=== PATIENT | male | born 1995 | race Caucasian/White ===

== ENCOUNTER → 2019-02-13 11:07 | Outpatient (BNVA) | payer MEDICAID, SELFPAY | PROVIDERS: Family Provider Internal Medicine; PCP Internal Medicine; Visit Provider Nurse Practitioner | DX: F34.81 Disruptive mood dysregulation disorder | CPT/HCPCS: 99213 ==

== ENCOUNTER 2019-04-05 17:05 | Emergency (ER) | payer MEDICAID, SELFPAY ==
[2019-04-05 17:06] VITALS: BP 135/76; PULSE 88; RESP 18; TEMP 37.1; O2SAT 96
[2019-04-05 18:37] VITALS: BP 118/73; PULSE 80; RESP 18; TEMP 36.9; O2SAT 97
--- NOTE | 2019-04-05 18:44 | PC.NURSE ---
Pt states he noticed the sleepy feeling when new meds Rx for acid reflux and heartburn
--- NOTE | 2019-04-05 19:55 | ED_ITS ---
Documented by User: CUCA Reddy 04/06/19 12:52 HPI - Fever General: Chief Complaint: Fever Stated Complaint: flu s/s Time Seen by Provider: 04/05/19 19:12 History of Present Illness: HPI Narrative: Patient is a 24-year-old male comes into the ED with early evening drowsiness. Patient states for the past week he starts getting real sleepy around the late afternoon early evening time. He then drinks some coffee to help him stay awake. Pt says he gets good sleep at night and is unsure if he snores. pt did say he started taking a medication for acid reflux with in the last 2 weeks but denies any other med changes. Pt does h ave a scheduled appointment with PCP next week. Associated symptoms: Deny abdominal pain, back/flank pain, chills, chest pain, diarrhea, dysuria, headache(s), nasal congestion, nausea or vomiting Review of Systems Const: Reports: daytime sleepiness; Denies: fever, chills or fatigue Eyes: Denies: change in vision or eye discomfort ENMT: Denies: throat pain, painful swallowing, nasal discharge or nasal congestion Card: Denies: chest pain, palpitations, edema, swelling of feet/ankles, shortness of breath on exertion or shortness of breath when lying down Resp: Denies: shortness of breath, productive cough or non-productive cough GI: Denies: abdominal pain, nausea, vomiting, diarrhea, constipation or blood in stool : Denies: flank pain, difficulty urinating, painful urination or blood in urine Musc: Denies: neck pain, back pain or extremity swelling Skin/Breast: Denies: rash or new lesion Neuro: Denies: headache, numbness in extremities or weakness in extremities PFSH ED PFSH: Medical History Autistic disorder Disruptive mood dysregulation disorder Social History Smoking and tobacco status: never smoked Physical Exam Narrative: EXAM NARRATIVE: Pt is a 24 y/o male that is in no acute distress or pain. he is sitting comfortably in the chair when I entered the room. Pt does appear to be overweight. Const: COMMON NORMALS: oriented x3 HENMT: COMMON NORMALS: normocephalic HEAD & SCALP: normocephalic MOUTH: oral and palatal mucosa normal THROAT: posterior oropharynx normal and uvula midline Neck/C-Spine: COMMON NORMALS: supple GENERAL: Yes normal visual inspection Lymph: LYMPHATIC: no lymphadenopathy noted (no cervical lymphadenopathy) Resp: COMMON NORMALS: normal respiratory effort, no retractions, no use of accessory muscles and clear to auscultation bilaterally AUSCULTATION: clear to auscultation bilaterally Cardio: COMMON NORMALS: regular rate, regular rhythm, S1 normal heart sound, S2 normal heart sound, no gallops, no clicks, no murmurs and peripheral pulses 2+ throughout RATE: regular rate RHYTHM: regular rhythm HEART SOUNDS: S1 normal and S2 normal PERIPHERAL PULSES: pulses 2+ throughout GI: COMMON NORMALS: normal to inspection, nondistended, normoactive bowel sounds, soft to palpation, non-tender and no masses INSPECTION: Yes central obesity PALPATION: Yes soft : COMMON NORMALS: Yes no CVA tenderness BLADDER/KIDNEY EXAM: Yes no CVA tenderness Back/Pelvis: COMMON NORMALS: no CVA tenderness Extremity: COMMON NORMALS: normal to inspection Neuro: COMMON NORMALS: oriented x3 and moves all extremities Skin: COMMON NORMALS: no rashes or lesions noted GENERAL SKIN EXAM: no rashes or lesions noted and dry skin Course Vital Signs: Vital signs: Vital Signs Temperature 98.4 F 04/05/19 18:37 Pulse Rate 80 04/05/19 18:37 Respiratory Rate 18 04/05/19 18:37 Blood Pressure 118/73 04/05/19 18:37 Pulse Oximetry 97 04/05/19 18:37 MDM - Fever Lab Data: Attestation: I reviewed the patient's lab results. Labs: Lab Results 04/05/19 04/05/19 04/05/19 Range/Units 19:59 20:09 20:09 WBC 8.1 (4.0-10.0) 10^3/ uL RBC 4.70 (4.1-5.3) 10^6/u L Hgb 14.4 (11.7-16.6) g/dL Hct 42.5 (42.0-52.0) % MCV 90.4 (80-94) fL MCH 30.6 (28.0-34.0) pg MCHC 33.9 (30.0-36.0) g/dL RDW 11.7 L (12.1-15.1) % Plt Count 168 (130-400) 10^3/c mm MPV 10.1 (7.4-10.4) fL Neut % (Auto) 65.2 % Lymph % (Auto) 24.8 % [place] % (Auto) 7.5 % Eos % (Auto) 1.6 % Baso % (Auto) 0.7 % Neut # (Auto) 5.3 (1.8-7.7) 10^3/u L Lymph # (Auto) 2.0 (0.8-4.8) 10^3/u L [place] # (Auto) 0.6 (0.2-0.9) 10^3/u L Eos # (Auto) 0.1 (0.0-0.8) 10^3/u L Baso # (Auto) 0.1 (0.0-0.1) 10^3/u L Nucleated RBC % (a uto) 0 % Nucleated RBCs # 0.0 /100WBC Sodium 137 (136-145) mmol/L Potassium 3.8 (3.5-5.1) mmol/L Chloride 103 (98-107) mmol/L Carbon Dioxide 24 (22-29) mmol/L Anion Gap 13.8 (5-19) BUN 15 (6-20) mg/dL Creatinine 0.8 (0.7-1.2) mg/dL GFR Calculation 117.8 (90-130) mL/min Glucose 104 (65-115) mg/dL Calcium 10.0 (8.5-10.5) mg/dL Total Bilirubin 0.3 (0.15-1.2) mg/dL AST 30 (0-40) U/L ALT 76 H (0-41) U/L Alkaline Phosphata se 75 (40-130) IU/L Total Protein 7.9 (6.6-8.7) g/dL Albumin 4.2 (3.5-5.2) g/dL Globulin 3.7 (1.3-4.6) g/dL Influenza Type A A g Negative (Negative) POC Influenza B Ag Negative (Negative) Discharge Plan Discharge Patient Disposition: Home, Self-Care Clinical Impression: Has daytime drowsiness Condition: Stable Prescriptions: No Action prenat.vits,carson,[id number] Tablet 1 tab PO ONCE RF: 0 medroxyprogesterone 150 mg/mL suspension 150 mg IM ONCE RF: 0 trazodone 50 mg tablet 50 mg PO .AT BED PRNRF: 0 acetaminophen [Tylenol Extra Strength] 500 mg tablet 500 mg PO Q6H PRNRF: 0 ibuprofen [Motrin IB] 200 mg capsule 600 mg PO Q6H PRNRF: 0 cetirizine [24Hour Allergy] 10 mg tablet 10 mg PO ONCE PRNRF: 0 lithium carbonate 450 mg tablet extended release 900 mg PO .AT BED Qty: 60 RF: 2 benztropine 1 mg tablet 2 mg PO .AT BED Qty: 60 RF: 2 oxcarbazepine 600 mg tablet 1,200 mg PO .AT BED Qty: 60 RF: 2 ziprasidone HCl 80 mg capsule 80 mg PO .AT BED Qty: 60 RF: 2 Discharge Orders: Discharge Order (Routine); Ordered 04/05/19 Ordered By: Harlan Davidson Referrals: Kenneth Bravo DO [Primary Care Provider] - Discharge Diet: Regular Discharge Activity: Resume usual activity Patient Instructions: Sleep Activity Restrictions/Additional Instructions: Follow-up with your PCP in the next 5-10 days for reevaluation. Discussed with your PCP feelings of drowsiness later in the day. Continue taking only her home medications as prescribed. Practice good sleep hygiene such as going to bed at the same time Every night. Discharge Date/Time: 04/05/19 21:23 Coding Level of Care Code ED Research Executive for Chg Fwd Exam Comprehensive Documented by User: Carolyn Bowie 04/06/19 19:59 HPI - Fever General: Chief Complaint: Fever Stated Complaint: flu s/s Time Seen by Provider: 04/05/19 19:12 PFSH ED PFSH: Medical History Autistic disorder Disruptive mood dysregulation disorder Social History Smoking and tobacco status: never smoked Course Vital Signs: Vital signs: Vital Signs Temperature 98.4 F 04/05/19 18:37 Pulse Rate 80 04/05/19 18:37 Respiratory Rate 18 04/05/19 18:37 Blood Pressure 118/73 04/05/19 18:37 Pulse Oximetry 97 04/05/19 18:37 MDM - Fever MDM Narrative: Medical decision making narrative: This patient was not seen by me nor evaluated by me nor discussed with me by the midlevel provider. I was available in the ER if needed throughout their stay but was not involved or contacted about their care. I am signing this chart per hospital policy ? Dr. Bowie. Lab Data: Labs: Lab Results 04/05/19 04/05/19 04/05/19 Range/Units 19:59 20:09 20:09 WBC 8.1 (4.0-10.0) 10^3/ uL RBC 4.70 (4.1-5.3) 10^6/u L Hgb 14.4 (11.7-16.6) g/dL Hct 42.5 (42.0-52.0) % MCV 90.4 (80-94) fL MCH 30.6 (28.0-34.0) pg MCHC 33.9 (30.0-36.0) g/dL RDW 11.7 L (12.1-15.1) % Plt Count 168 (130-400) 10^3/c mm MPV 10.1 (7.4-10.4) fL Neut % (Auto) 65.2 % Lymph % (Auto) 24.8 % [place] % (Auto) 7.5 % Eos % (Auto) 1.6 % Baso % (Auto) 0.7 % Neut # (Auto) 5.3 (1.8-7.7) 10^3/u L Lymph # (Auto) 2.0 (0.8-4.8) 10^3/u L [place] # (Auto) 0.6 (0.2-0.9) 10^3/u L Eos # (Auto) 0.1 (0.0-0.8) 10^3/u L Baso # (Auto) 0.1 (0.0-0.1) 10^3/u L Nucleated RBC % (a uto) 0 % Nucleated RBCs # 0.0 /100WBC Sodium 137 (136-145) mmol/L Potassium 3.8 (3.5-5.1) mmol/L Chloride 103 (98-107) mmol/L Carbon Dioxide 24 (22-29) mmol/L Anion Gap 13.8 (5-19) BUN 15 (6-20) mg/dL Creatinine 0.8 (0.7-1.2) mg/dL GFR Calculation 117.8 (90-130) mL/min Glucose 104 (65-115) mg/dL Calcium 10.0 (8.5-10.5) mg/dL Total Bilirubin 0.3 (0.15-1.2) mg/dL AST 30 (0-40) U/L ALT 76 H (0-41) U/L Alkaline Phosphata se 75 (40-130) IU/L Total Protein 7.9 (6.6-8.7) g/dL Albumin 4.2 (3.5-5.2) g/dL Globulin 3.7 (1.3-4.6) g/dL Influenza Type A A g Negative (Negative) POC Influenza B Ag Negative (Negative) Discharge Plan Discharge Patient Disposition: Home, Self-Care Clinical Impression: Has daytime drowsiness Condition: Stable Prescriptions: No Action prenat.vits,carson,[id number] Tablet 1 tab PO ONCE RF: 0 medroxyprogesterone 150 mg/mL suspension 150 mg IM ONCE RF: 0 trazodone 50 mg tablet 50 mg PO .AT BED PRNRF: 0 acetaminophen [Tylenol Extra Strength] 500 mg tablet 500 mg PO Q6H PRNRF: 0 ibuprofen [Motrin IB] 200 mg capsule 600 mg PO Q6H PRNRF: 0 cetirizine [24Hour Allergy] 10 mg tablet 10 mg PO ONCE PRNRF: 0 lithium carbonate 450 mg tablet extended release 900 mg PO .AT BED Qty: 60 RF: 2 benztropine 1 mg tablet 2 mg PO .AT BED Qty: 60 RF: 2 oxcarbazepine 600 mg tablet 1,200 mg PO .AT BED Qty: 60 RF: 2 ziprasidone HCl 80 mg capsule 80 mg PO .AT BED Qty: 60 RF: 2 Discharge Orders: Discharge Order (Routine); Ordered 04/05/19 Ordered By: Harlan Davidson Referrals: Kenneth Bravo DO [Primary Care Provider] - Discharge Diet: Regular Discharge Activity: Resume usual activity Patient Instructions: Sleep Activity Restrictions/Additional Instructions: Follow-up with your PCP in the next 5-10 days for reevaluation. Discussed with your PCP feelings of drowsiness later in the day. Continue taking only her home medications as prescribed. Practice good sleep hygiene such as going to bed at the same time Every night. Discharge Date/Time: 04/05/19 21:23 Coding Level of Care Code ED Research Executive for Chg Fwd Exam Comprehensive
--- NOTE | 2019-04-05 19:56 | XR_ITS ---
WS: [id number] Portable AP upright chest, 04/05/2019 Clinical Data: cough and fever Comparison: Portable chest, 10/29/2017. Findings: No nodules, masses or effusions are seen. The heart is normal. The pulmonary vascularity is not increased. No pneumonia or pneumothorax is seen. XR/XR chest 1V portable [id number] Impression: Negative chest.
[2019-04-05 20:16] LABS: Basophils # 0.1 10^3/uL (0.0-0.1); Basophils % 0.7 %; Eosinophils # 0.1 10^3/uL (0.0-0.8); Eosinophils % 1.6 %; Hematocrit 42.5 % (42.0-52.0); Hemoglobin 14.4 g/dL (11.7-16.6); Lymphocytes % 24.8 %; Mean Corpuscular HGB Conc 33.9 g/dL (30.0-36.0); Mean Corpuscular Hemoglobin 30.6 pg (28.0-34.0); Mean Corpuscular Volume 90.4 fL (80-94); Mean Platelet Volume 10.1 fL (7.4-10.4); Monocytes # 0.6 10^3/uL (0.2-0.9); Monocytes % 7.5 %; Neutrophils # 5.3 10^3/uL (1.8-7.7); Neutrophils % 65.2 %; Nucleated Red Blood Cells % 0 %; Platelet Count 168 10^3/cmm (130-400); Red Cell Distribution Width 11.7 % (12.1-15.1); White Blood Count 8.1 10^3/uL (4.0-10.0)
[2019-04-05 20:34] LABS: Alanine Aminotransferase 76 U/L (0-41); Albumin Level 4.2 g/dL (3.5-5.2); Alkaline Phosphatase 75 IU/L (40-130); Anion Gap 13.8 (5-19); Aspartate Amino Transferase 30 U/L (0-40); Blood Urea Nitrogen 15 mg/dL (6-20); Carbon Dioxide 24 mmol/L (22-29); Chloride 103 mmol/L (98-107); Globulin 3.7 g/dL (1.3-4.6); Glomerular Filtration Rate 117.8 mL/min (90-130); Glucose 104 mg/dL (65-115); Potassium 3.8 mmol/L (3.5-5.1); Sodium 137 mmol/L (136-145); Total Bilirubin 0.3 mg/dL (0.15-1.2); Total Protein 7.9 g/dL (6.6-8.7)
[2019-04-05 20:43] LABS: Influenza A by IFA Negative (Negative); Influenza B by IFA Negative (Negative)
== END 2019-04-05 21:23 | disposition home or self-care (01) ==
PROVIDERS: Emergency Provider Physician Assistant; Family Provider Internal Medicine; PCP Internal Medicine
DX: R40.0 Somnolence (principal)
CPT/HCPCS: 36415; 71045; 80053; 85025; 87804; 99281; 99283

== ENCOUNTER → 2019-05-05 08:15 | Outpatient (BNVA) | payer MEDICAID, SELFPAY | PROVIDERS: Family Provider Internal Medicine; PCP Internal Medicine; Visit Provider Nurse Practitioner | DX: F34.81 Disruptive mood dysregulation disorder (principal); F84.0 Autistic disorder | CPT/HCPCS: 99213 ==

== ENCOUNTER → 2019-06-07 07:48 | Outpatient (BNVA) | payer MEDICAID, SELFPAY | PROVIDERS: Family Provider Internal Medicine; PCP Internal Medicine; Visit Provider Nurse Practitioner | DX: F34.81 Disruptive mood dysregulation disorder (principal); F84.0 Autistic disorder | CPT/HCPCS: 99214 ==

== ENCOUNTER → 2019-06-30 07:40 | Outpatient (BNVA) | payer MEDICAID, SELFPAY | PROVIDERS: Family Provider Internal Medicine; PCP Internal Medicine; Visit Provider Nurse Practitioner | DX: F34.81 Disruptive mood dysregulation disorder (principal); F84.0 Autistic disorder | CPT/HCPCS: 99214 ==

== ENCOUNTER 2019-07-01 17:57 | Emergency (ER) | payer MEDICAID, SELFPAY ==
[2019-07-01 18:27] VITALS: BP 132/81; PULSE 93; RESP 18; TEMP 36.7; O2SAT 97; BMI 23.8
== END 2019-07-02 01:16 | disposition left against medical advice (07) ==
LOC: ER 18:17
PROVIDERS: Emergency Provider Emergency Medicine; PCP Internal Medicine
DX: Z53.21 Procedure and treatment not carried out due to patient leaving prior to being seen by health care provider (principal)
CPT/HCPCS: 99281

== ENCOUNTER 2019-07-09 17:34 | Emergency (ER) | payer MEDICAID, SELFPAY | END 2019-07-09 20:40 | disposition admitted as inpatient to this hospital (09) | LOC: ER 07-20 01:31 | PROVIDERS: Emergency Provider Emergency Medicine; PCP Internal Medicine | DX: F32.9 Major depressive disorder, single episode, unspecified (principal); R45.4 Irritability and anger; F84.0 Autistic disorder | CPT/HCPCS: 12345; 36415; 80053; 80307; 85025; 99282; 99285 ==

== ENCOUNTER 2019-07-09 17:34 | Inpatient (IN) | payer MEDICAID, SELFPAY ==
[2019-07-09 17:35] VITALS: BMI 27.4
[2019-07-09 17:40] VITALS: BP 127/85; PULSE 84; RESP 16; TEMP 37.2; O2SAT 98
--- NOTE | 2019-07-09 17:42 | ED_ITS ---
HPI - Psych General: Chief Complaint: Psychiatric Symptoms Stated Complaint: DEPRESSION Time Seen by Provider: 07/09/19 17:34 Source: patient and EMS Mode of arrival: EMS Limitations: no limitations History of Present Illness: HPI Narrative: 24-year-old male who states he has had increased anger along with depressions. He states that he had his meds readjusted and he is worsened. He denies any suicidality or homicidality. He states that he does want to get admitted to get help he states his anger dhas increased and he feels he needs his meds readjusted. complaint: suicidal ideation Associated symptoms: Reports depression Review of Systems Const: Denies: fever(s), chills, body aches or change in appetite Eyes: Denies: blurry vision or eye discomfort ENMT: Denies: throat pain or dental pain Card: Denies: chest pain Resp: Denies: dyspnea GI: Denies: abdominal pain, nausea, vomiting or diarrhea : Denies: dysuria Musc: Denies: neck pain or back pain Skin/Breast: Denies: rash Neuro: Denies: headache(s) Psych: Reports: depression [place]/Lymph: Denies: easy bruising All/Imm: Denies: urticaria PFSH ED PFSH: Medical History Autistic disorder Disruptive mood dysregulation disorder Social History Smoking and tobacco status: never smoked Physical Exam Const: COMMON NORMALS: no acute distress, patient oriented x3 and healthy appearing HENMT: COMMON NORMALS: normocephalic and atraumatic HEAD & SCALP: normocephalic and atraumatic Eye: COMMON NORMALS: Equal, round and reactive pupils present and EOMs intact bilaterally PUPIL: Yes Equal, round and reactive pupils present Neck/C-Spine: COMMON NORMALS: full ROM and supple Chest: COMMONS NORMALS: normal inspection of the chest and normal palpation of entire chest wall Resp: COMMON NORMALS: normal respiratory effort, No retractions, No use of accessory muscles and clear to auscultation bilaterally AUSCULTATION: clear to auscultation bilaterally Cardio: COMMON NORMALS: regular rate, regular rhythm and No murmurs present (Cardio) RATE: regular rate RHYTHM: regular rhythm GI: COMMON NORMALS: Normal to inspection, nondistended, normoactive bowel sounds present, Soft to palpation, non-tender and no masses PALPATION: Yes Soft to palpation Extremity: COMMON NORMALS: normal to inspection and full ROM Neuro: COMMON NORMALS: patient oriented x3, moves all extremities and no focal motor deficits Psych: COMMON NORMALS: mental status grossly normal, Normal thought process present and cooperative MOOD & AFFECT: Yes depressed mood THOUGHT PROCESS: Normal thought process present Skin: COMMON NORMALS: no rashes or lesions noted and no wounds GENERAL SKIN EXAM: no rashes or lesions noted MDM - Psych MDM Narrative: Medical decision making narrative: Patient presents here with increased anger along with depression. Patient states that he does not feel safe at home at this time and would like to be admitted to have his meds readjusted. Patient's medically cleared and I spoke to Dr. Howell and will admit to psychiatric unit. Lab Data: Labs: Lab Results 07/09/19 07/09/19 Range/Units 18:50 18:50 WBC 7.0 (4.0-10.0) 10^3/ uL RBC 4.86 (4.1-5.3) 10^6/u L Hgb 14.6 (11.7-16.6) g/dL Hct 42.5 (42.0-52.0) % MCV 87.4 (80-94) fL MCH 30.0 (28.0-34.0) pg MCHC 34.4 (30.0-36.0) g/dL RDW 11.6 L (12.1-15.1) % Plt Count 161 (130-400) 10^3/c mm MPV 10.5 H (7.4-10.4) fL Neut % (Auto) 58.3 % Lymph % (Auto) 31.7 % [place] % (Auto) 7.4 % Eos % (Auto) 1.6 % Baso % (Auto) 0.7 % Neut # (Auto) 4.1 (1.8-7.7) 10^3/u L Lymph # (Auto) 2.2 (0.8-4.8) 10^3/u L [place] # (Auto) 0.5 (0.2-0.9) 10^3/u L Eos # (Auto) 0.1 (0.0-0.8) 10^3/u L Baso # (Auto) 0.1 (0.0-0.1) 10^3/u L Nucleated RBC % (a uto) 0 % Nucleated RBCs # 0.0 /100WBC Sodium 140 (136-145) mmol/L Potassium 3.5 (3.5-5.1) mmol/L Chloride 105 (98-107) mmol/L Carbon Dioxide 24 (22-29) mmol/L Anion Gap 14.5 (5-19) BUN 16 (6-20) mg/dL Creatinine 0.8 (0.7-1.2) mg/dL GFR Calculation 117.8 (90-130) mL/min Glucose 126 H (65-115) mg/dL Calculated Osmolal ity 288 (285-295) mOsm/k g Calcium 9.9 (8.5-10.5) mg/dL Total Bilirubin 0.3 (0.15-1.2) mg/dL AST 24 (0-40) U/L ALT 57 H (0-41) U/L Alkaline Phosphata se 70 (40-130) IU/L Total Protein 7.3 (6.6-8.7) g/dL Albumin 4.1 (3.5-5.2) g/dL Globulin 3.2 (1.3-4.6) g/dL Salicylates < 0.3 L (3-10) mg/dL Acetaminophen < 5.0 L (10-30) ug/mL Ethyl Alcohol < 10 (0-10) mg/dL Discharge Plan Discharge Patient Disposition: Admitted As Inpatient Admit Provider: Ruben Howell Clinical Impression: Outbursts of anger, Depression Condition: Stable Referrals: Kenneth Bravo DO [Primary Care Provider] - Discharge Diet: Advance as tolerated Discharge Activity: Resume usual activity Patient Instructions: Depression (ED) Coding Level of Care Code ED Director Of Instruction for Alva Fwd Exam Comprehensive
--- NOTE | 2019-07-09 18:02 | PC.NURSE ---
Patient denies SI complaints.
[2019-07-09] MEDS: LORazepam 2 mg/mL INJ 1 mL IM (18:22)
--- NOTE | 2019-07-09 18:52 | PC.NURSE ---
Patient has continued to change his mind regarding admission numerous times. At this time patient is requesting transfer to outside facility for NPU placement. Patient continues to deny any SI at this time. Assisted living staff is at bedside with patient at this time. Will seek placement at outside facility.
[2019-07-09 18:57] LABS: Basophils # 0.1 10^3/uL (0.0-0.1); Basophils % 0.7 %; Eosinophils # 0.1 10^3/uL (0.0-0.8); Eosinophils % 1.6 %; Hematocrit 42.5 % (42.0-52.0); Hemoglobin 14.6 g/dL (11.7-16.6); Lymphocytes # 2.2 10^3/uL (0.8-4.8); Lymphocytes % 31.7 %; Mean Corpuscular HGB Conc 34.4 g/dL (30.0-36.0); Mean Corpuscular Volume 87.4 fL (80-94); Mean Platelet Volume 10.5 fL (7.4-10.4); Monocytes # 0.5 10^3/uL (0.2-0.9); Monocytes % 7.4 %; Neutrophils # 4.1 10^3/uL (1.8-7.7); Neutrophils % 58.3 %; Nucleated Red Blood Cells % 0 %; Platelet Count 161 10^3/cmm (130-400); Red Blood Count 4.86 10^6/uL (4.1-5.3); Red Cell Distribution Width 11.6 % (12.1-15.1)
--- NOTE | 2019-07-09 19:06 | PC.NURSE ---
report received from GABBI Jessica and care transferred to GABBI Coburn
[2019-07-09 19:11] LABS: Alanine Aminotransferase 57 U/L (0-41); Albumin Level 4.1 g/dL (3.5-5.2); Alkaline Phosphatase 70 IU/L (40-130); Anion Gap 14.5 (5-19); Aspartate Amino Transferase 24 U/L (0-40); Blood Urea Nitrogen 16 mg/dL (6-20); Calcium 9.9 mg/dL (8.5-10.5); Carbon Dioxide 24 mmol/L (22-29); Chloride 105 mmol/L (98-107); Globulin 3.2 g/dL (1.3-4.6); Glomerular Filtration Rate 117.8 mL/min (90-130); Glucose 126 mg/dL (65-115); Osmolality Calculated 288 mOsm/kg (285-295); Potassium 3.5 mmol/L (3.5-5.1); Sodium 140 mmol/L (136-145); Total Bilirubin 0.3 mg/dL (0.15-1.2); Total Protein 7.3 g/dL (6.6-8.7)
[2019-07-09 19:16] LABS: Acetaminophen < 5.0 ug/mL (10-30); Alcohol Level < 10 mg/dL (0-10); Salicylate < 0.3 mg/dL (3-10)
[2019-07-09 20:38] VITALS: BP 104/76; PULSE 92; RESP 14; O2SAT 97
[2019-07-09 20:46] VITALS: BP 1241/87; PULSE 91; RESP 24; TEMP 37.1; O2SAT 98
[2019-07-09 22:00] VITALS: RESP 18
[2019-07-09] MEDS: trazodone 50 mg Tablet PO (22:48)
[2019-07-09] MEDS: benztropine 1 mg Tablet 2 MG PO (22:48)
[2019-07-09] MEDS: ziprasidone hcl 40 mg Capsule 80 MG PO (22:48)
[2019-07-09] MEDS: OXcarbazepine 300 mg Tablet 600 MG PO (22:49)
[2019-07-10 06:00] VITALS: BP 117/67; PULSE 76; RESP 20; TEMP 37.1; O2SAT 97
[2019-07-10] MEDS: prenatal vitamin Capsule 1 CAP PO (09:36)
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
[2019-07-10] MEDS: ibuprofen 600 mg Tablet PO (12:51)
[2019-07-10 13:37] VITALS: BP 123/82; PULSE 103; RESP 18; TEMP 36.7; O2SAT 96
[2019-07-10] MEDS: benztropine 1 mg Tablet PO (17:22)
[2019-07-10] MEDS: OXcarbazepine 300 mg Tablet 600 MG PO (18:39)
[2019-07-10] MEDS: ziprasidone hcl 40 mg Capsule 80 MG PO (18:40)
[2019-07-10 21:52] VITALS: BP 110/69; PULSE 86; RESP 17; TEMP 37; O2SAT 94
--- NOTE | 2019-07-10 22:33 | PC.NURSE ---
PT OFFERED PRN SLEEP MED, PT REFUSED.
[2019-07-11 05:50] VITALS: BP 118/82; PULSE 86; RESP 15; TEMP 37.1; O2SAT 95
[2019-07-11] MEDS: benztropine 1 mg Tablet PO (08:00)
[2019-07-11] MEDS: buPROPion XL (24 HR) 150 mg Tablet PO (08:01)
[2019-07-11] MEDS: prenatal vitamin Capsule 1 CAP PO (08:01)
[2019-07-11] MEDS: cetirizine 10 mg Tablet PO (08:01)
[2019-07-11] MEDS: ziprasidone hcl 40 mg Capsule 80 MG PO (08:01)
[2019-07-11] MEDS: OXcarbazepine 300 mg Tablet 600 MG PO (08:01)
[2019-07-11 12:27] VITALS: BP 118/82; PULSE 86; RESP 15; TEMP 37.1; O2SAT 95
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
== END 2019-07-11 16:28 | disposition home or self-care (01) | DRG 885 ==
LOC: ER 19:24 → NP 20:08
PROVIDERS: Emergency Medicine; Admitting Provider Psychiatry & Neurology Psychiatry; PCP Internal Medicine; Visit Provider Psychiatry & Neurology Psychiatry
DX: F33.1 Major depressive disorder, recurrent, moderate (principal); F84.0 Autistic disorder; F34.81 Disruptive mood dysregulation disorder
CPT/HCPCS: 12345; 36415; 80053; 80307; 85025; 99282; 99285; J2060

== ENCOUNTER → 2019-07-21 07:38 | Outpatient (BNVA) | payer MEDICAID, SELFPAY | PROVIDERS: PCP Internal Medicine; Visit Provider Nurse Practitioner | DX: F84.0 Autistic disorder (principal); F33.1 Major depressive disorder, recurrent, moderate | CPT/HCPCS: 99214 ==

== ENCOUNTER 2019-07-29 10:00 | Emergency (ER) | payer MEDICAID, SELFPAY ==
[2019-07-29 10:09] VITALS: BP 111/73; PULSE 91; RESP 16; TEMP 37.1; O2SAT 97; BMI 23.9
[2019-07-29 10:16] VITALS: RESP 18
--- NOTE | 2019-07-29 10:48 | CTR_ITS ---
PROCEDURE INFORMATION: Exam: CT Head Without Contrast Exam date and time: 07/29/2019 10:52 AM Age: 24 years old Clinical indication: Pain; Headache; Additional info: Chronic headache TECHNIQUE: Imaging protocol: Computed tomography of the head without contrast. Radiation optimization: All CT scans at this facility use at least one of these dose optimization techniques: automated exposure control; mA and/or kV adjustment per patient size (includes targeted exams where dose is matched to clinical indication); or iterative reconstruction. COMPARISON: No relevant prior studies available. FINDINGS: Brain: Giant cisterna magna. Symmetric caliber of the cortical sulci. Normal walden-white matter differentiation. No acute cortical infarct or intracranial hemorrhage. Ventricles: Normal configuration of the ventricles. Bones/joints: No acute calvarial pathology. Sinuses: No sinus fluid. Mastoid air cells: No mastoid effusion. Soft tissues: Unremarkable soft tissues. CT/CT head wo con* [id number] IMPRESSION: No acute intracranial pathology. Radiation Dose CTDIVOL = (mGy): DLP = 892.76 (mGy-cm)
--- NOTE | 2019-07-29 11:00 | W.ED.HA ---
HPI - Headache General: Chief Complaint: Headache Stated Complaint: SOB Time Seen by Provider: 07/29/19 10:18 History of Present Illness: HPI Narrative: 24-year-old male comes in complaining of headaches. He states he had these off and on for last 3 months he relates symptoms onset of a panic attack he had a few months ago. States headaches make him dizzy with no really given vertiginous-like symptoms. They do keep him from doing what he wants to do is a history of autism. He lives in a residential [facility]. He denies any trauma. His caregivers with him also denies any trauma. He tried Tylenol and Motrin with no relief from these. He has not noticed anything that worsen or improves them. No recent upper respiratory illnesses no other complaints MD elicited complaint: headache Pertinent past history: other (Asperger's syndrome) Onset (ago): month(s) (3 to 4 months) Onset description: gradually Location: facial (Frontal) and retro-orbital Severity: mild Quality & Timing: throbbing Exacerbating factors: none Relieving factors: nothing Context: occurred with exertion/activity Associated symptoms: Reports other (Dizziness); Deny chest pain, fever(s), malaise, nausea, rash or vomiting Treatments prior to arrival: acetaminophen and ibuprofen Review of Systems Const: Denies: fever(s), chills, body aches, change in appetite, fatigue or malaise ENMT: Denies: throat pain, ear or mastoid pain, nasal discharge or nasal congestion Card: Denies: chest pain, edema, dyspnea on exertion or orthopnea Resp: Denies: dyspnea, productive cough or non-productive cough GI: Denies: abdominal pain, nausea, vomiting, hematemesis, coffee ground emesis, diarrhea, constipation, bloating, hematochezia or melena : Denies: flank pain, dysuria, urinary frequency or urinary urgency Skin/Breast: Denies: rash or pruritus PFSH ED PFSH: Medical History Autistic disorder Disruptive mood dysregulation disorder Major depressive disorder, recurrent, moderate Social History Smoking and tobacco status: never smoked Physical Exam Const: COMMON NORMALS: no acute distress GENERAL APPEARANCE: cooperative and comfortable ORIENTATION/CONSCIOUSNESS: Yes awake, Yes oriented to person, Yes oriented to place and Yes oriented to time HENMT: COMMON NORMALS: normocephalic, atraumatic, hearing grossly normal bilaterally, external ears normal, EAC's normal, TM's normal bilaterally, Normal nasal mucous membranes and turbinates present, moist oral mucous membranes and oropharynx normal HEAD & SCALP: normocephalic and atraumatic NOSE: Normal nasal mucous membranes and turbinates present EXTERNAL EAR: Yes external ears normal EXTERNAL AUDITORY CANAL: EAC's normal TYMPANIC MEMBRANE: TM's normal bilaterally Eye: COMMON NORMALS: Equal, round and reactive pupils present, EOMs intact bilaterally, conjunctivae normal and no scleral icterus CONJUNCTIVA: Yes conjunctivae normal PUPIL: Yes Equal, round and reactive pupils present Neck/C-Spine: COMMON NORMALS: full ROM, no lymphadenopathy, supple and no JVD Lymph: LYMPHATIC: no lymphadenopathy noted and no lymphedema noted Resp: COMMON NORMALS: normal respiratory effort, No retractions, No use of accessory muscles and clear to auscultation bilaterally AUSCULTATION: clear to auscultation bilaterally Cardio: COMMON NORMALS: no JVD, regular rate, regular rhythm and No murmurs present (Cardio) RATE: regular rate RHYTHM: regular rhythm GI: COMMON NORMALS: Soft to palpation and No hepatosplenomegaly present AUSCULTATION: Yes normoactive bowel sounds PALPATION: Yes Soft to palpation, No Tenderness to palpation present (GI), No Guarding due to palpation present (GI) and Yes No hepatosplenomegaly present Extremity: COMMON NORMALS: normal to inspection, capillary refill normal, no clubbing, cyanosis or edema, no calf tenderness and no pedal edema Neuro: SENSORIUM/ORIENTATION: Yes oriented to person, Yes oriented to place and Yes oriented to time Skin: COMMON NORMALS: no rashes or lesions noted GENERAL SKIN EXAM: no rashes or lesions noted Course Vital Signs: Vital signs: Vital Signs Temperature 98.7 F 07/29/19 10:09 Pulse Rate 101 H 07/29/19 12:08 Respiratory Rate 18 07/29/19 12:08 Blood Pressure 110/73 07/29/19 12:08 Pulse Oximetry 97 07/29/19 12:08 MDM - Headache MDM Narrative: Medical decision making narrative: Pressures have been history marked feels that were like a tension migraine. We will go ahead and start him on amitriptyline asked him to follow-up with his regular doctor in the next 7 to 10 days to evaluate whether or not they wish him to continue this. Lab Data: Labs: Lab Results 07/29/19 07/29/19 Range/Units 11:12 11:12 WBC 6.2 (4.0-10.0) 10^3/ uL RBC 5.01 (4.1-5.3) 10^6/u L Hgb 15.0 (11.7-16.6) g/dL Hct 44.4 (42.0-52.0) % MCV 88.6 (80-94) fL MCH 29.9 (28.0-34.0) pg MCHC 33.8 (30.0-36.0) g/dL RDW 11.6 L (12.1-15.1) % Plt Count 175 (130-400) 10^3/c mm MPV 10.5 H (7.4-10.4) fL Neut % (Auto) 61.6 % Lymph % (Auto) 26.8 % [place] % (Auto) 8.4 % Eos % (Auto) 2.1 % Baso % (Auto) 0.8 % Neut # (Auto) 3.8 (1.8-7.7) 10^3/u L Lymph # (Auto) 1.7 (0.8-4.8) 10^3/u L [place] # (Auto) 0.5 (0.2-0.9) 10^3/u L Eos # (Auto) 0.1 (0.0-0.8) 10^3/u L Baso # (Auto) 0.1 (0.0-0.1) 10^3/u L Nucleated RBC % (a uto) 0 % Nucleated RBCs # 0.0 /100WBC Sodium 138 (136-145) mmol/L Potassium 4.0 (3.5-5.1) mmol/L Chloride 102 (98-107) mmol/L Carbon Dioxide 24 (22-29) mmol/L Anion Gap 16.0 (5-19) BUN 11 (6-20) mg/dL Creatinine 0.8 (0.7-1.2) mg/dL GFR Calculation 117.8 (90-130) mL/min Glucose 96 (65-115) mg/dL Calculated Osmolal ity 282 L (285-295) mOsm/k g Calcium 9.9 (8.5-10.5) mg/dL Total Bilirubin 0.7 (0.15-1.2) mg/dL AST 31 (0-40) U/L ALT 60 H (0-41) U/L Alkaline Phosphata se 67 (40-130) IU/L Total Protein 7.7 (6.6-8.7) g/dL Albumin 4.3 (3.5-5.2) g/dL Globulin 3.4 (1.3-4.6) g/dL Discharge Plan Discharge Patient Disposition: Home, Self-Care Clinical Impression: Headache, Major depressive disorder, recurrent, moderate, Autistic disorder Condition: Stable Prescriptions: New amitriptyline 25 mg tablet 25 mg PO .qhs Qty: 14 RF: 0 No Action benztropine 1 mg tablet 2 mg PO .AT BED Qty: 60 RF: 2 hydroxyzine HCl 50 mg tablet 50 mg PO .HS PRN (Reason: sleep) Qty: 30 RF: 1 prenat.vits,carson,[id number] Tablet 1 tab PO DAILY RF: 0 medroxyprogesterone 150 mg/mL suspension 150 mg IM ONCE RF: 0 acetaminophen [Tylenol Extra Strength] 500 mg tablet 500 mg PO Q6H PRN (Reason: pain) RF: 0 ibuprofen [Motrin IB] 200 mg capsule 600 mg PO Q6H PRN (Reason: muscle pain) RF: 0 cetirizine [24Hour Allergy] 10 mg tablet 10 mg PO DAILY PRN (Reason: allergies) RF: 0 prazosin 1 mg capsule 1 mg PO DAILY PRN (Reason: nightmares) RF: 0 bupropion HCl 150 mg Tablet Extended Release 24 Hr 150 mg PO DAILY 30 Days Qty: 30 RF: 1 ziprasidone HCl 80 mg capsule 80 mg PO QAM Qty: 60 RF: 2 Discharge Orders: Discharge Order (Routine); Ordered 07/29/19 Ordered By: Gamal Parekh Referrals: Kenneth Bravo DO [Primary Care Provider] - Discharge Diet: Usual diet Discharge Activity: Resume usual activity Activity Restrictions/Additional Instructions: Follow-up with your primary care doctor within the next 7 to 10 days to evaluate for the headaches and the medicine that was started today Discharge Date/Time: 07/29/19 12:09 Coding Level of Care Code ED 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
[2019-07-29 11:19] LABS: Basophils # 0.1 10^3/uL (0.0-0.1); Basophils % 0.8 %; Eosinophils # 0.1 10^3/uL (0.0-0.8); Eosinophils % 2.1 %; Hematocrit 44.4 % (42.0-52.0); Lymphocytes # 1.7 10^3/uL (0.8-4.8); Lymphocytes % 26.8 %; Mean Corpuscular HGB Conc 33.8 g/dL (30.0-36.0); Mean Corpuscular Hemoglobin 29.9 pg (28.0-34.0); Mean Corpuscular Volume 88.6 fL (80-94); Mean Platelet Volume 10.5 fL (7.4-10.4); Monocytes # 0.5 10^3/uL (0.2-0.9); Monocytes % 8.4 %; Neutrophils # 3.8 10^3/uL (1.8-7.7); Neutrophils % 61.6 %; Nucleated Red Blood Cells % 0 %; Platelet Count 175 10^3/cmm (130-400); Red Blood Count 5.01 10^6/uL (4.1-5.3); Red Cell Distribution Width 11.6 % (12.1-15.1); White Blood Count 6.2 10^3/uL (4.0-10.0)
[2019-07-29 11:41] LABS: Alanine Aminotransferase 60 U/L (0-41); Albumin Level 4.3 g/dL (3.5-5.2); Alkaline Phosphatase 67 IU/L (40-130); Aspartate Amino Transferase 31 U/L (0-40); Blood Urea Nitrogen 11 mg/dL (6-20); Calcium 9.9 mg/dL (8.5-10.5); Carbon Dioxide 24 mmol/L (22-29); Chloride 102 mmol/L (98-107); Globulin 3.4 g/dL (1.3-4.6); Glomerular Filtration Rate 117.8 mL/min (90-130); Glucose 96 mg/dL (65-115); Osmolality Calculated 282 mOsm/kg (285-295); Sodium 138 mmol/L (136-145); Total Bilirubin 0.7 mg/dL (0.15-1.2); Total Protein 7.7 g/dL (6.6-8.7)
[2019-07-29 12:08] VITALS: BP 110/73; PULSE 101; RESP 18; O2SAT 97
== END 2019-07-29 12:09 | disposition home or self-care (01) ==
PROVIDERS: Emergency Provider Family Medicine; PCP Internal Medicine
DX: R51 Headache (principal); F33.9 Major depressive disorder, recurrent, unspecified; F84.0 Autistic disorder
CPT/HCPCS: 12345; 36415; 70450; 80053; 85025; 99281; 99283

== ENCOUNTER → 2019-09-05 07:41 | Outpatient (BNVA) | payer MEDICAID, SELFPAY | PROVIDERS: PCP Internal Medicine; Visit Provider Nurse Practitioner | DX: F33.1 Major depressive disorder, recurrent, moderate (principal); F84.0 Autistic disorder | CPT/HCPCS: 99214 ==

== ENCOUNTER → 2019-09-25 09:13 | Outpatient (BNVA) | payer MEDICAID, SELFPAY | PROVIDERS: PCP Internal Medicine; Visit Provider Podiatrist Foot & Ankle Surgery | DX: M96.0 Pseudarthrosis after fusion or arthrodesis; M21.611 Bunion of right foot | CPT/HCPCS: 73630 ==

== ENCOUNTER → 2019-10-11 08:26 | Outpatient (BNVA) | payer MEDICAID, SELFPAY | PROVIDERS: PCP Internal Medicine; Visit Provider Internal Medicine | DX: Z11.59 Encounter for screening for other viral diseases (principal) | CPT/HCPCS: 87635 ==

== ENCOUNTER → 2019-10-31 07:40 | Outpatient (BNVA) | payer MEDICAID, SELFPAY | PROVIDERS: PCP Internal Medicine; Visit Provider Nurse Practitioner | DX: F84.0 Autistic disorder (principal); F33.1 Major depressive disorder, recurrent, moderate | CPT/HCPCS: 99213 ==

== ENCOUNTER → 2019-11-13 10:27 | Outpatient (BNVA) | payer MEDICAID, SELFPAY | PROVIDERS: PCP Internal Medicine; Visit Provider Podiatrist Foot & Ankle Surgery | DX: R05 Cough (principal) | CPT/HCPCS: 87635 ==

== ENCOUNTER 2019-11-17 08:10 | Day surgery (SDC) | payer MEDICAID, SELFPAY ==
[2019-11-16 13:45] VITALS: BMI 26.9
--- NOTE | 2019-11-17 | SCC_ITS ---
Procedure Done: Deep Hardware Removal Right Foot 84272 25 seconds of fluoroscopic guidance, for a cumulative dose of 0.53 mGy, was provided to Dr. Finch by the radiology department. C-arm images of the RIGHT foot were saved for the patient's permanent record. [facility]
--- NOTE | 2019-11-17 | XR_ITS ---
WS: [id number] Right foot, AP and lateral views, 11/17/2019 Clinical Data: Deep hardware removal Comparison: Right foot, 09/25/2019. Findings: There is underpenetration. The hardware that was removed is difficult to identify. There is a medial plate extending from the distal first metatarsal to the first cuneiform. There are several screws att aching this plate. There is also a orthopedic screw which extends from the dorsum of the right first metatarsal obliquely ending in one of the tarsal bones. XR/XR foot RT 2V [id number] Impression: Slightly underpenetrated AP and lateral views of the medial right foot. A medial plate adjacent to the first cuneiform and and the first metatarsal and oblique screw probably extending from the base of the first metatarsal and one of the tarsal bones are seen.
[2019-11-17 08:30] VITALS: BP 142/77; PULSE 101; RESP 18; TEMP 36.3; O2SAT 94
[2019-11-17] MEDS: sodium chloride 0.9% 1,000 ML 30 ML IV (09:20)
--- NOTE | 2019-11-17 09:38 | ANES.PREANE2 ---
Pre-Anesthetic Assessment Pre-Anesthetic Assessment: Height/Weight: Height 2.18 m Weight 128.367 kg Temp Pulse Resp BP Pulse Ox 97.4 F L 101 H 18 142/77 94 11/17/19 08:30 11/17/19 08:30 11/17/19 08:30 11/17/19 08:30 11/17/19 08:30 Preop Diagnosis: Nonunion right foot. Painful retained hardware right foot. Bunion deformity right foot. Proposed Procedure: Operation Date: 11/17/19 09:35 Proposed Procedures p Deep Hardware Removal Right Foot 02969 M96.0(Right) - Carlitos Finch DPM s Buionectomy [place]us Right Foor 69480 M21.611(Right) - Carlitos Finch DPM Was Beta Isadora taken within 24 hours: N/A Last intake: Intake Last Liquid Date 11/16/19 Last Liquid Time 23:45 Last Solid Date 11/16/19 Last Solid Time 23:45 Social: Social History: No alcohol and No tobacco Exam: Pre-Anes Outpt Exam: alert, oriented x 3, clear to auscultation bilaterally and regular rate & rhythm Airway: Submandibular: WNL Cervical ROM: WNL MP: 1 Dentition: Chipped History/ROS: No significant complaints Pulmonary: Pulmonary: None reported CV/HEM: CV/HEM: None reported : : None reported Hepatic: Hepatic: None reported GI: GI: GERD Metabolic: Metabolic: None reported Musc/skel: Musc/skel: None reported Neuropsych: Neuropsych: Depression Comments: Autism and Behavioral Disorder Anesthetic Plan: ASA status: 3 PFSH Anesthesia PFSH: Medical History (Updated 11/16/19 @ 13:48 by Carlitos Finch DPM) Autistic disorder Disruptive mood dysregulation disorder Major depressive disorder, recurrent, moderate Social History Smoking and tobacco status: never smoked Data Anesthesia Cardiac Studies: No Data to Display
--- NOTE | 2019-11-17 09:45 | P.HPUD_ITS ---
Surgery/Procedure H&P Update DATE OF PROCEDURE: November 17, 2019 DATE H&P PERFORMED: 11/16/19 H&P UPDATE INFORMATION: I have reviewed H&P completed within last 30 days, I have examined patient prior to procedure, No changes to prior documentation and H&P is in [facility] EMR on date indicated PREOP DIAGNOSIS: Nonunion right foot. Painful retained hardware right foot. Bunion deformity right foot. PLANNED PROCEDURE: Operation Date: 11/17/19 09:35 Proposed Procedures p Deep Hardware Removal Right Foot 12122 M96.0(Right) - Carlitos Finch DPM s Buionectomy Lap[place]us Right Foor 89344 M21.611(Right) - Carlitos Finch DPM
--- NOTE | 2019-11-17 09:45 | PM.OP ---
Operative Report Date of procedure: November 17, 2019 Pre-op Diagnosis: Nonunion right foot. Painful retained hardware right foot. Bunion deformity right foot. Post-op diagnosis: same Post-op Findings: Loose hardware, nonunion site to right Lap[place]us bunionectomy, right bunion deformity. Procedure Done: Deep Hardware Removal Right Foot Buionectomy [place]us Right Foot 32553 Implants: [place] 28 4.0 x 55 mm headless screw. [place] 28 3.5 millimeter screws consisting of 46 mm, 18 mm, 26 mm, 22 mm, 20 mm and 20 mm, [place] 28 Lapidus graft spanning plate 5 hole right. 2-0 Vicryl, 4-0 Vicryl, 4-0 nylon. Specimens removed/disposition: Right medical [place]us plate and screws x6. Pathology: none sent Surgeon: Carlitos Finch D.P.M. Press Assistant And Feeder: Andreina Anesthesia: MAC Estimated blood loss: 5 mL Tourniquet time: 86 minutes IV fluids: None Urine output: None Complications: None Findings: Hardware loosening right foot. Nonunion right first tarsometatarsal joint. Bunion deformity to the right. Condition: stable Disposition: PACU Brief History: Mr. Colindres is a 24-year-old male with history of painful hardware, nonunion and right foot pain to the arthrodesis site of the right foot first tarsometatarsal joint. Requesting hardware removal and revision of bunionectomy. States that the original surgery was done in [facility] by Dr. Walls approximately 5 years ago and that he was noncompliant with nonweightbearing status immediately postoperatively, states that he stopped his foot the day of surgery, this likely contributed to hardware failure and contributed to nonunion. States that he has pain on a daily basis has utilize supportive shoes and orthotics without relief in symptoms. Has pain with weightbearing and activity. Discussed hardware removal and revisional arthrodesis of the right tarsometatarsal joint, first. Risks include pain, bleeding, numbness, infection, hardware failure, hardware lucency, delayed union, malunion, nonunion, failure to retrieve hardware, permanent numbness, neuritis, hyper sensitivity, chronic swelling, failure to alleviate pain, damage to adjacent soft tissue structures, need for further surgical intervention. Patient is agreeable wishes to proceed. States he is willing to be nonweightbearing for approximately 8 weeks postoperatively. No guarantees expressed, written or implied. Discussed risks versus benefits with the patient preoperatively, consent signed, identified patient's surgical site this was initialed by myself. Procedure: Under mild sedation the patient was brought to the operating room and placed on the operating table in supine position. A timeout was performed. Anesthesia was then administered by the anesthesia service. Local anesthesia injected by myself consisting of a right ankle block 30 cc of 0.5% Marcaine plain. Well-padded pneumatic tourniquet applied right ankle. Right lower extremity was scrubbed, prepped and draped utilizing normal aseptic technique. Right foot was then examined a weighted with an Esmarch bandage and the tourniquet was inflated to 250 mmHg. Attention was directed to the medial aspect of the right first metatarsal cuneiform joint where previous well-healed cicatrix was appreciated. Directly over the previous incision a 15 blade was utilized to perform a linear longitudinal incision through skin. Utilizing a new 15 blade and accommodation of sharp and blunt technique, dissection was carried down through subcutaneous tissue directly to pre-existing hardware at the medial aspect of the first metatarsal base and medial cuneiform.. Periosteal incision was made, hardware was exposed and removed medial plate was removed and passed per operative field along with a total of 6 screws these were right medical 2.7 millimeter screws. Mobility was appreciated at the first metatarsal base medial cuneiform consistent with nonunion appeared to be a combination of fibrous and osseous. Nonunion was resected utilizing osteotome, utilizing a sagittal saw osteotomy at the base of the right first metatarsal perpendicular to his access and taking more plantarly as well as on the opposing distal aspect of the medial cuneiform osteotomies were performed resecting all nonviable bone and soft tissue. This was passed from the operative field. Utilizing a K wire and curved osteotome to perform fish scaling to further prepare the arthrodesis site through subchondral plate. Arthrodesis site was compressed and the first metatarsal slightly plantarflexed and held in a rectus position followed by temporary fixation next a [place] 28 4 mm headless compression screw was inserted from dorsal lateral to proximal medial across the arthrodesis site followed by application of dorsal medial plate with a combination of locking and nonlocking screws as above. Temporary fixation was was removed. Intraoperative fluoroscopy confirmed placement of hardware to be excellent with reduction of deformity and resection of nonunion. Incision site was flushed with saline solution. Deep tissue and periosteum reapproximated utilizing 2-0 Vicryl. Subcutaneous tissue reapproximated utilizing 4-0 Vicryl and skin reapproximated utilizing 4-0 nylon. Incision site was cleansed and dressed with Adaptic, sterile 4 x 4's, Kerlix, Sander wrap and cam boot applied. Tourniquet was deflated and a prompt hyperemic response was noted to the distal digits of the right foot. Patient tolerated procedure well and was transferred to the PACU with vital signs stable and vascular status intact. Following a period of postoperative monitoring he will be discharged home is to remain strict nonweightbearing has accommodation of crutches and wheelchair. Was provided postoperative care instructions and my personal cell phone number on discharge paperwork.
[2019-11-17 12:02] VITALS: BP 153/73; PULSE 110; RESP 14; TEMP 36.2; O2SAT 97
--- NOTE | 2019-11-17 12:04 | SUR.PHASEI ---
1202 PATIENT TO PACU FROM OR. RR EVEN AND UNLABORED. BOOT IN PLACE TO RIGHT FOOT.
[2019-11-17 12:10] VITALS: BP 153/96; PULSE 102; RESP 18; O2SAT 96
[2019-11-17 12:15] VITALS: BP 123/86; PULSE 96; RESP 18; TEMP 36.1; O2SAT 95
--- NOTE | 2019-11-17 12:20 | SUR.PHASEI ---
1215 PATIENT TO OPS. TALKATIVE. BOOT IN PLACE TO RIGHT FOOT.
[2019-11-17 12:21] VITALS: BP 118/80; PULSE 96; RESP 18; TEMP 36.1; O2SAT 94
[2019-11-17 12:33] VITALS: BP 132/92; PULSE 85; RESP 18; O2SAT 97
== END 2019-11-17 13:01 | disposition home or self-care (01) ==
PROVIDERS: PCP Internal Medicine; Visit Provider Podiatrist Foot & Ankle Surgery
PROC: (CPT 20680; principal; 2019-11-17 09:35)
PROC: (CPT 28297; 2019-11-17 09:35)
DX: M21.611 Bunion of right foot (principal); M96.0 Pseudarthrosis after fusion or arthrodesis; T84.84XA Pain due to internal orthopedic prosthetic devices, implants and grafts, initial encounter; F84.0 Autistic disorder; F33.9 Major depressive disorder, recurrent, unspecified; K21.9 Gastro-esophageal reflux disease without esophagitis
CPT/HCPCS: 20680; 28297; 12345; 73620; 76000; 96365; C1713; J0131; J0690; J1885; J2250; J2704; J3010; J3490; J7030

== ENCOUNTER → 2019-11-30 15:10 | Outpatient (BNVA) | payer MEDICAID, SELFPAY | PROVIDERS: PCP Internal Medicine; Visit Provider Podiatrist Foot & Ankle Surgery | DX: Z98.890 Other specified postprocedural states (principal) | CPT/HCPCS: 73630 ==

== ENCOUNTER → 2019-12-20 11:13 | Outpatient (BNVA) | payer MEDICAID, SELFPAY | PROVIDERS: PCP Internal Medicine; Visit Provider Podiatrist Foot & Ankle Surgery | DX: T84.84XA Pain due to internal orthopedic prosthetic devices, implants and grafts, initial encounter (principal); M21.611 Bunion of right foot; L91.8 Other hypertrophic disorders of the skin; Z98.890 Other specified postprocedural states; M96.0 Pseudarthrosis after fusion or arthrodesis; X58.XXXA Exposure to other specified factors, initial encounter | CPT/HCPCS: 73630 ==

== ENCOUNTER → 2020-01-10 12:50 | Outpatient (BNVA) | payer MEDICAID, SELFPAY | PROVIDERS: PCP Internal Medicine; Visit Provider Podiatrist Foot & Ankle Surgery | DX: Z47.89 Encounter for other orthopedic aftercare (principal) | CPT/HCPCS: 73630 ==

== ENCOUNTER 2020-01-10 14:31 | Outpatient (CLI) | payer MEDICAID, SELFPAY | END 2020-01-10 14:32 | disposition home or self-care (01) | LOC: SPT 14:31 | PROVIDERS: PCP Internal Medicine; Visit Provider Podiatrist Foot & Ankle Surgery | DX: Z47.89 Encounter for other orthopedic aftercare (principal) | CPT/HCPCS: 97760; L4361 ==

== ENCOUNTER → 2020-01-17 07:31 | Outpatient (BNVA) | payer MEDICAID, SELFPAY | PROVIDERS: PCP Internal Medicine; Visit Provider Nurse Practitioner | DX: F33.1 Major depressive disorder, recurrent, moderate (principal); F84.0 Autistic disorder | CPT/HCPCS: 99213 ==

== ENCOUNTER → 2020-01-30 13:03 | Outpatient (BNVA) | payer MEDICAID, SELFPAY | PROVIDERS: PCP Internal Medicine; Visit Provider Podiatrist Foot & Ankle Surgery | DX: Z48.89 Encounter for other specified surgical aftercare (principal); L91.8 Other hypertrophic disorders of the skin | CPT/HCPCS: 73630 ==

== ENCOUNTER → 2020-03-04 12:59 | Outpatient (BNVA) | payer MEDICAID, SELFPAY | PROVIDERS: PCP Internal Medicine; Visit Provider Podiatrist Foot & Ankle Surgery | DX: Z48.89 Encounter for other specified surgical aftercare (principal); M25.571 Pain in right ankle and joints of right foot; Z96.698 Presence of other orthopedic joint implants | CPT/HCPCS: 73610; 73630 ==

== ENCOUNTER 2020-03-04 15:03 | Outpatient (CLI) | payer MEDICAID, SELFPAY | END 2020-03-04 15:04 | disposition home or self-care (01) | LOC: SPT 15:04 | PROVIDERS: PCP Internal Medicine; Visit Provider Podiatrist Foot & Ankle Surgery | DX: Z46.89 Encounter for fitting and adjustment of other specified devices (principal); S93.401D Sprain of unspecified ligament of right ankle, subsequent encounter; X58.XXXD Exposure to other specified factors, subsequent encounter | CPT/HCPCS: 97760; L1902 ==

== ENCOUNTER → 2020-04-10 07:33 | Outpatient (BNVA) | payer MEDICAID, SELFPAY | PROVIDERS: PCP Internal Medicine; Visit Provider Nurse Practitioner | DX: F84.0 Autistic disorder (principal); F33.1 Major depressive disorder, recurrent, moderate | CPT/HCPCS: 99214 ==

== ENCOUNTER → 2020-04-17 10:15 | Outpatient (BNVA) | payer MEDICAID, SELFPAY | PROVIDERS: PCP Internal Medicine; Visit Provider Podiatrist Foot & Ankle Surgery | DX: Z98.890 Other specified postprocedural states (principal); Q66.6 Other congenital valgus deformities of feet | CPT/HCPCS: 73630 ==

== ENCOUNTER 2020-06-01 16:50 | Emergency (ER) | payer MEDICAID, SELFPAY ==
[2020-06-01 17:13] VITALS: BP 141/86; PULSE 86; RESP 18; TEMP 36.5; O2SAT 97; BMI 26.5
--- NOTE | 2020-06-01 18:02 | ED_ITS ---
HPI - Psych General: Chief Complaint: Psychiatric Symptoms Stated Complaint: depression Time Seen by Provider: 06/01/20 18:02 Source: patient Mode of arrival: ambulatory Limitations: no limitations History of Present Illness: HPI Narrative: 25-year-old male patient comes in today for concerns of medication making him feel depressed. Patient states he understands medication helps with his anger outburst, the patient likes to feel happy at times. Patient feels that he does not feel happiness and often feels just numb. Patient denies any homicidal suicidal thought. Patient is very rational in his thinking. Patient is cooperative. MD complaint: feels depressed Associated symptoms: Reports depression Review of Systems General: Reports: 10 or more systems reviewed and unremarkable except in HPI and below Psych: Reports: depression PFSH ED PFSH: Medical History (Updated 06/01/20 @ 18:27 by TRISHA Villasenor) Autistic disorder Disruptive mood dysregulation disorder Major depressive disorder, recurrent, moderate Social History Smoking and tobacco status: never smoked Physical Exam Const: COMMON NORMALS: no acute distress and patient oriented x3 GENERAL APPEARANCE: cooperative HENMT: COMMON NORMALS: normocephalic and Normal external nose present HEAD & SCALP: normal to inspection and normocephalic NOSE: Normal external nose present Eye: GENERAL EYE: appearance normal, both eyes and all related structures Neck/C-Spine: COMMON NORMALS: full ROM Chest: COMMONS NORMALS: normal inspection of the chest Resp: COMMON NORMALS: normal respiratory effort EFFORT & INSPECTION: Yes able to speak in complete sentences Cardio: COMMON NORMALS: regular rate and regular rhythm RATE: regular rate RHYTHM: regular rhythm GI: COMMON NORMALS: non-tender Extremity: COMMON NORMALS: normal to inspection Neuro: COMMON NORMALS: patient oriented x3 and moves all extremities Psych: COMMON NORMALS: mental status grossly normal and cooperative Skin: COMMON NORMALS: no rashes or lesions noted GENERAL SKIN EXAM: no rashes or lesions noted MDM - Psych MDM Narrative: Medical decision making narrative: Patient comes in for concerns relating to medication side effect. Patient has just felt that he does not feel anything with the medications he is on. Patient appears well. Patient appears no acute distress. Patient denies any suicidal or homicidal thought. Patient is alert and oriented and responds appropriately to questions. Differential diagnosis includes not limited to major depressive disorder, autism, adverse drug effect. I talk with patient in length regarding the use of his medications and that they often will cause flattening of his mood. Patient did report understanding this. I discussed that these medications often will help prevent outbursts but often can cause numbness and depression. Patient reported that he understands why he takes medication and does not want to have the anger outbursts. I discussed with patient the need to follow-up with his psychiatrist in order to have medications adjusted appropriately. Patient reported understanding of this, I discussed with the staff member of the residential center patient resides and he reports that they would be able to get him into his behavioral health specialist. Patient agrees to this plan and states understanding for this plan. Discharge Plan Discharge Patient Disposition: Home Clinical Impression: Disruptive mood dysregulation disorder Adverse drug effect Qualifiers: Encounter type: initial encounter Qualified Code(s): T50.905A - Adverse effect of unspecified drugs, medicaments and biological substances, initial encounter Condition: Stable Prescriptions: No Action (DME) wheel chair See Rx Instructions .Route .MEDSUPPLY Qty: 1 RF: 0 sulfamethoxazole-trimethoprim [Bactrim DS] 800-160 mg tablet 1 tab PO BID 14 Days Qty: 28 RF: 0 (DME) custom, functional orthotic See Rx Instructions .Route .MEDSUPPLY Qty: 1 RF: 0 (DME) ptt supanator See Rx Instructions .Route .MEDSUPPLY Qty: 1 RF: 0 (DME) bone stimulator See Rx Instructions .ROUTE .MEDSUPPLY Qty: 1 RF: 0 prenat.vits,carson,[id number] Tablet 1 tab PO DAILY RF: 0 medroxyprogesterone 150 mg/mL suspension 150 mg IM ONCE RF: 0 acetaminophen [Tylenol Extra Strength] 500 mg tablet 500 mg PO Q6H PRN (Reason: pain) RF: 0 ibuprofen [Motrin IB] 200 mg capsule 600 mg PO Q6H PRN (Reason: muscle pain) RF: 0 hydroxyzine HCl 50 mg tablet 50 mg PO .HS PRN (Reason: sleep) Qty: 30 RF: 2 prazosin 1 mg capsule 1 mg PO DAILY PRN (Reason: nightmares) Qty: 30 RF: 2 mupirocin 2 % ointment 1 applic topical DAILY Qty: 30 RF: 0 (DME) CAM WALKER See Rx Instructions .ROUTE .MEDSUPPLY Qty: 1 RF: 0 benztropine 1 mg tablet 2 mg PO .AT BED Qty: 60 RF: 2 oxcarbazepine [Trileptal] 600 mg tablet 600 mg PO .HS Qty: 30 RF: 2 bupropion HCl [Wellbutrin XL] 150 mg tablet extended release 24 hr 150 mg PO .HS Qty: 30 RF: 2 ziprasidone HCl 80 mg capsule 160 mg PO .HS Qty: 60 RF: 2 (DME) crutch Misc See Rx Instructions .ROUTE .MEDSUPPLY Qty: 2 RF: 0 oxycodone-acetaminophen [Percocet] 10-325 mg tablet 1 tab PO Q8H PRN (Reason: pain) 7 Days Qty: 21 RF: 0 cefadroxil 1 gram tablet 1,000 mg PO DAILY 10 Days Qty: 10 RF: 0 oxycodone-acetaminophen [Percocet] 7.5-325 mg tablet 1 tab PO Q6H PRN (Reason: pain) 7 Days Qty: 28 RF: 0 hydrocodone-acetaminophen [[place]] 7.5-325 mg tablet 1 tab PO Q6H PRN (Reason: pain) 7 Days Qty: 28 RF: 0 oxycodone-acetaminophen [Percocet] 5-325 mg tablet 1 tab PO Q6H PRN (Reason: pain) 7 Days Qty: 28 RF: 0 hydrocodone-acetaminophen [[place]] 5-325 mg tablet 1 tab PO Q8H PRN (Reason: pain) 7 Days Qty: 21 RF: 0 loratadine 10 mg Capsule 10 mg PO DAILY PRN (Reason: Allergic Symptoms) RF: 0 omeprazole 20 mg capsule,delayed release(DR/EC) 40 mg PO DAILY RF: 0 Discharge Orders: Discharge ED (Routine); Ordered 06/01/20 Ordered By: Carlos Morton Referrals: Kenneth Bravo DO [Primary Care Provider] - Discharge Diet: Usual diet Discharge Activity: Increase activity as tolerated Patient Instructions: Opioid Safety Activity Restrictions/Additional Instructions: Continue with routine medications as prescribed. Follow-up with behavioral health pulmonary care nurse, psychiatrist or counselor, at the soonest available appointment. Discussed with them your concerns relating your medication. Talk with counselor during the interim to establish a relationship to discuss depressed mood. Return to the emergency department for new concerns. Follow-up with primary care as needed. Coding Level of Care Code ED Director Treasurer for [facility] Fwwhitley Exam Comprehensive
== END 2020-06-01 18:52 | disposition home or self-care (01) ==
PROVIDERS: Emergency Provider Nurse Practitioner Family; PCP Internal Medicine
DX: F34.81 Disruptive mood dysregulation disorder (principal); T50.905A Adverse effect of unspecified drugs, medicaments and biological substances, initial encounter; F84.0 Autistic disorder
CPT/HCPCS: 99282

== ENCOUNTER → 2020-06-04 10:07 | Outpatient (BNVA) | payer MEDICAID, SELFPAY | PROVIDERS: PCP Internal Medicine; Visit Provider Nurse Practitioner | DX: F84.0 Autistic disorder (principal); F34.81 Disruptive mood dysregulation disorder | CPT/HCPCS: 99214 ==

== ENCOUNTER → 2020-06-14 07:36 | Outpatient (BNVA) | payer MEDICAID, SELFPAY | PROVIDERS: PCP Internal Medicine; Visit Provider Nurse Practitioner | DX: F84.0 Autistic disorder (principal); F34.81 Disruptive mood dysregulation disorder | CPT/HCPCS: 99214 ==

== ENCOUNTER 2020-06-22 16:35 | Emergency (ER) | payer MEDICAID, SELFPAY ==
[2020-06-22 16:41] VITALS: BP 123/87; PULSE 97; RESP 18; TEMP 36.2; O2SAT 96; BMI 26.6
[2020-06-22 17:11] VITALS: BP 123/87; PULSE 91; O2SAT 97
--- NOTE | 2020-06-22 17:50 | W.ED.PSYCH ---
HPI - Psych General: Chief Complaint: Psychiatric Symptoms Stated Complaint: PSYCH Time Seen by Provider: 06/22/20 16:48 Source: patient Mode of arrival: ambulatory Limitations: no limitations History of Present Illness: HPI Narrative: Patient is a 25-year-old male with a history of autism disorder, depression, outburst of anger who presents to the emergency department with what he states is a severe episode of depression that occurred today. He lives in a residential and stated that he got so depressed earlier today. He called mental breakdown . He said he was crying uncontrollably on the lawn and had suicidal ideations at the time. He states that he is currently not having any suicidal ideations but feels that his symptoms may recur again and he does not want to get to the point. He would like to be evaluated and admitted to the neuropsychiatric unit for further evaluation and management. He believes that his symptoms were caused because his medications were adjusted recently. He is unable to tell me which medications were adjusted but he states that one of them was an antidepressant. MD complaint: suicidal ideation and feels depressed Duration: intermittent History of same: Yes Relieving factors: none Exacerbating factors: none Associated psychiatric symptoms: depression and suicidal ideation Associated symptoms: Reports depression; Deny auditory hallucinations, visual hallucinations, delusions, homicidal ideation, suicidal ideation or racing thoughts Treatments prior to arrival: none Review of Systems General: Reports: 10 or more systems reviewed and unremarkable except in HPI and below Psych: Reports: depression; Denies: visual hallucinations, auditory hallucinations, suicidal ideation or homicidal ideation [facility] ED PFSH: Medical History (Updated 06/22/20 @ 18:54 by Marcellus Cristobal MD, [facility] [place]) Autistic disorder Disruptive mood dysregulation disorder Major depressive disorder, recurrent, moderate Social History (Reviewed 06/22/20 @ 17:58 by Marcellus Cristobal MD, [facility] [place]) Smoking and tobacco status: never smoked Physical Exam Const: COMMON NORMALS: no acute distress, average body habitus, patient oriented x3, no limitations, healthy appearing, alert and well nourished HENMT: COMMON NORMALS: normocephalic, atraumatic and moist oral mucous membranes HEAD & SCALP: normocephalic and atraumatic Neck/C-Spine: COMMON NORMALS: no meningeal signs and no JVD Resp: COMMON NORMALS: normal respiratory effort, No retractions, No use of accessory muscles, clear to auscultation bilaterally and percussion normal AUSCULTATION: clear to auscultation bilaterally PERCUSSION: percussion normal Cardio: COMMON NORMALS: no JVD, regular rate, regular rhythm, S1 normal heart sound present, S2 normal heart sound present, No gallops present (Cardio), No clicks present (Cardio), No murmurs present (Cardio), No rub (Cardio) and Peripheral pulses 2+ throughout RATE: regular rate RHYTHM: regular rhythm HEART SOUNDS: S1 normal heart sound present and S2 normal heart sound present PERIPHERAL PULSES: Peripheral pulses 2+ throughout GI: COMMON NORMALS: Normal to inspection, nondistended, normoactive bowel sounds present, Soft to palpation, non-tender, No hepatosplenomegaly present, no masses and no bruits PALPATION: Yes Soft to palpation and Yes No hepatosplenomegaly present Extremity: COMMON NORMALS: normal to inspection, full ROM, capillary refill normal, no calf tenderness and no pedal edema Neuro: COMMON NORMALS: patient oriented x3 SENSORIUM/ORIENTATION: Yes alert MENINGEAL SIGNS: Yes no meningeal signs Psych: THOUGHT CONTENT: No delusions Skin: COMMON NORMALS: no rashes or lesions noted, no wounds, turgor normal, no jaundice, no petechiae and no mottling GENERAL SKIN EXAM: no rashes or lesions noted and turgor normal Course Reevaluation(s): Reevaluation #1: Discussed his lab findings with him, also discussed my conversation with Dr. Sampson with the patient. Explained that he believes the patient will benefit most from outpatient therapy. The patient once again reiterates that he is currently not suicidal but he is worried that his symptoms will return. He however thinks that he can wait till Wednesday to see his psychiatrist. Time: 18:54 Consultations: Consultation #1: Discussed the patient with Dr. Sampson, psychiatrist. He advised that since the patient is currently not suicidal and all he needs a medication adjustment he is appropriate for outpatient management and outpatient follow-up with his psychiatrist. He advised that the patient will not benefit from inpatient admission and will be best served by following up with a psychiatrist outpatient. Time: 18:44 Vital Signs: Vital signs: Vital Signs Temperature 97.2 F L 06/22/20 16:41 Pulse Rate 91 06/22/20 17:11 Respiratory Rate 18 06/22/20 16:41 Blood Pressure 123/87 06/22/20 17:11 Pulse Oximetry 97 06/22/20 17:11 MDM - Psych MDM Narrative: Medical decision making narrative: 25-year-old male who had an episode of significant depression earlier today and at that time he was also suicidal. Episode has passed and the patient is no longer suicidal. He believes a recent medication adjustments are responsible for his current symptom and after evaluation in the emergency department and conversation with the psychiatrist the patient is appropriate for outpatient therapy. He will follow-up with his psychiatrist on Wednesday. Medical Records: Attestation: I reviewed the patient's medical records. Lab Data: Attestation: I reviewed the patient's lab results. Labs: Lab Results 06/22/20 06/22/20 06/22/20 Range/Units 16:40 16:40 18:13 WBC 11.8 H (4.0-10.0) 10^3/ uL RBC 4.77 (4.1-5.3) 10^6/u L Hgb 14.3 (11.7-16.6) g/dL Hct 42.3 (42.0-52.0) % MCV 88.7 (80-94) fL MCH 30.0 (28.0-34.0) pg MCHC 33.8 (30.0-36.0) g/dL RDW 12.0 L (12.1-15.1) % Plt Count 159 (130-400) 10^3/c mm MPV 10.8 H (7.4-10.4) fL Neut % (Auto) 77.6 % Lymph % (Auto) 14.5 % [place] % (Auto) 6.7 % Eos % (Auto) 0.6 % Baso % (Auto) 0.3 % Neut # (Auto) 9.12 H (1.8-7.7) 10^3/u L Lymph # (Auto) 1.7 (0.8-4.8) 10^3/u L [place] # (Auto) 0.8 (0.2-0.9) 10^3/u L Eos # (Auto) 0.1 (0.0-0.8) 10^3/u L Baso # (Auto) 0.0 (0.0-0.1) 10^3/u L Nucleated RBC % (a uto) 0 % Nucleated RBCs # 0.0 /100WBC Sodium 142 (136-145) mmol/L Potassium 4.1 (3.5-5.1) mmol/L Chloride 108 H (98-107) mmol/L Carbon Dioxide 27 (22-29) mmol/L Anion Gap 11.1 (5-19) BUN 12 (6-20) mg/dL Creatinine 0.8 (0.7-1.2) mg/dL GFR Calculation 116.9 (90-130) mL/min Glucose 91 (65-115) mg/dL Calculated Osmolal ity 293 (285-295) mOsm/k g Calcium 8.7 (8.5-10.5) mg/dL Total Bilirubin 0.3 (0.15-1.2) mg/dL AST 18 (0-40) U/L ALT 40 (0-41) U/L Alkaline Phosphata se 103 (40-130) IU/L Total Protein 7.2 (6.6-8.7) g/dL Albumin 4.0 (3.5-5.2) g/dL Globulin 3.2 (1.3-4.6) g/dL Urine Color Yellow (Yellow) Urine Appearance Clear (CLEAR) Urine pH 7 (5-7) Ur Specific Gravit y 1.010 (1.005-1.030) Urine Protein Neg (Negative) Urine Glucose (UA) Norm (Normal) Urine Ketones Negative (Negative) Urine Blood Neg (Negative) Urine Nitrate Negative (Negative) Urine Bilirubin Neg (Negative) Urine Urobilinogen 4 H (Negative) mg/dL Ur Leukocyte Michelle ase Negative (Negative) Salicylates < 0.3 L (3-10) mg/dL Urine Opiates Scre en (Negative) ng/mL Acetaminophen < 5.0 L (10-30) ug/mL Ur Barbiturates Sc reen (Negative) ng/mL Ur Phencyclidine S crn (Negative) ng/mL Ur Amphetamines Sc reen (Negative) ng/mL U Benzodiazepines Scrn (Negative) ng/mL Urine Cocaine Scre en (Negative) ng/mL U Marijuana (THC) Screen (Negative) ng/mL 06/22/20 Range/Units 18:13 WBC (4.0-10.0) 10^3/ uL RBC (4.1-5.3) 10^6/u L Hgb (11.7-16.6) g/dL Hct (42.0-52.0) % MCV (80-94) fL MCH (28.0-34.0) pg MCHC (30.0-36.0) g/dL RDW (12.1-15.1) % Plt Count (130-400) 10^3/c mm MPV (7.4-10.4) fL Neut % (Auto) % Lymph % (Auto) % [place] % (Auto) % Eos % (Auto) % Baso % (Auto) % Neut # (Auto) (1.8-7.7) 10^3/u L Lymph # (Auto) (0.8-4.8) 10^3/u L [place] # (Auto) (0.2-0.9) 10^3/u L Eos # (Auto) (0.0-0.8) 10^3/u L Baso # (Auto) (0.0-0.1) 10^3/u L Nucleated RBC % (a uto) % Nucleated RBCs # /100WBC Sodium (136-145) mmol/L Potassium (3.5-5.1) mmol/L Chloride (98-107) mmol/L Carbon Dioxide (22-29) mmol/L Anion Gap (5-19) BUN (6-20) mg/dL Creatinine (0.7-1.2) mg/dL GFR Calculation (90-130) mL/min Glucose (65-115) mg/dL Calculated Osmolal ity (285-295) mOsm/k g Calcium (8.5-10.5) mg/dL Total Bilirubin (0.15-1.2) mg/dL AST (0-40) U/L ALT (0-41) U/L Alkaline Phosphata se (40-130) IU/L Total Protein (6.6-8.7) g/dL Albumin (3.5-5.2) g/dL Globulin (1.3-4.6) g/dL Urine Color (Yellow) Urine Appearance (CLEAR) Urine pH (5-7) Ur Specific Gravit y (1.005-1.030) Urine Protein (Negative) Urine Glucose (UA) (Normal) Urine Ketones (Negative) Urine Blood (Negative) Urine Nitrate (Negative) Urine Bilirubin (Negative) Urine Urobilinogen (Negative) mg/dL Ur Leukocyte Michelle ase (Negative) Salicylates (3-10) mg/dL Urine Opiates Scre en Negative (Negative) ng/mL Acetaminophen (10-30) ug/mL Ur Barbiturates Sc reen Negative (Negative) ng/mL Ur Phencyclidine S crn Negative (Negative) ng/mL Ur Amphetamines Sc reen Negative (Negative) ng/mL U Benzodiazepines Scrn Negative (Negative) ng/mL Urine Cocaine Scre en Negative (Negative) ng/mL U Marijuana (THC) Screen Negative (Negative) ng/mL Discharge Plan Discharge Patient Disposition: Home Clinical Impression: Major depressive disorder, recurrent, moderate, Autistic disorder Condition: Stable Prescriptions: Continued prenat.vits,carson,[id number] Tablet 1 tab PO DAILY@2200 RF: 0 medroxyprogesterone 150 mg/mL suspension 150 mg IM Q30D RF: 0 acetaminophen [Tylenol Extra Strength] 500 mg tablet 500 mg PO TID PRN (Reason: pain) RF: 0 ibuprofen [Motrin IB] 200 mg capsule 600 mg PO Q6H PRN (Reason: muscle pain) RF: 0 prazosin 1 mg capsule 1 mg PO DAILY PRN (Reason: nightmares) Qty: 30 RF: 2 loratadine 10 mg Capsule 10 mg PO DAILY PRN (Reason: Allergic Symptoms) RF: 0 omeprazole 20 mg capsule,delayed release(DR/EC) 40 mg PO DAILY@2200 RF: 0 hydroxyzine HCl 50 mg tablet 50 mg PO BEDTIME PRN (Reason: sleep) RF: 0 Trileptal 300 mg tablet 300 mg PO BID@ RF: 0 Geodon 60 mg capsule 60 mg PO BID@ RF: 0 naphazoline 0.012 % Drops 1 drp OPHTHALMIC (EYE) DAILY PRN (Reason: Dry Eyes) RF: 0 Discharge Orders: Discharge ED (Routine); Ordered 06/22/20 Ordered By: Marcellus Cristobal Referrals: Kneneth Bravo DO [Primary Care Provider] - 1-3 days Discharge Diet: Usual diet Discharge Activity: Resume usual activity Patient Instructions: Depression (ED), Suicide Prevention for Adults (ED) Activity Restrictions/Additional Instructions: Return for any new or worsening symptoms. Follow-up with your psychiatrist on Wednesday for adjustment of your medications. Continue your medications as prescribed. If you have any thoughts of suicide or feeling out of control please call the helpline or seek immediate medical attention. 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
[2020-06-22 18:01] LABS: Basophils % 0.3 %; Eosinophils # 0.1 10^3/uL (0.0-0.8); Eosinophils % 0.6 %; Hematocrit 42.3 % (42.0-52.0); Hemoglobin 14.3 g/dL (11.7-16.6); Lymphocytes # 1.7 10^3/uL (0.8-4.8); Lymphocytes % 14.5 %; Mean Corpuscular HGB Conc 33.8 g/dL (30.0-36.0); Mean Corpuscular Volume 88.7 fL (80-94); Mean Platelet Volume 10.8 fL (7.4-10.4); Monocytes # 0.8 10^3/uL (0.2-0.9); Monocytes % 6.7 %; Neutrophils # 9.12 10^3/uL (1.8-7.7); Neutrophils % 77.6 %; Nucleated Red Blood Cells % 0 %; Platelet Count 159 10^3/cmm (130-400); Red Blood Count 4.77 10^6/uL (4.1-5.3); White Blood Count 11.8 10^3/uL (4.0-10.0)
[2020-06-22 18:25] LABS: Alanine Aminotransferase 40 U/L (0-41); Alkaline Phosphatase 103 IU/L (40-130); Anion Gap 11.1 (5-19); Aspartate Amino Transferase 18 U/L (0-40); Blood Urea Nitrogen 12 mg/dL (6-20); Calcium 8.7 mg/dL (8.5-10.5); Carbon Dioxide 27 mmol/L (22-29); Chloride 108 mmol/L (98-107); Globulin 3.2 g/dL (1.3-4.6); Glomerular Filtration Rate 116.9 mL/min (90-130); Glucose 91 mg/dL (65-115); Osmolality Calculated 293 mOsm/kg (285-295); Potassium 4.1 mmol/L (3.5-5.1); Sodium 142 mmol/L (136-145); Total Bilirubin 0.3 mg/dL (0.15-1.2); Total Protein 7.2 g/dL (6.6-8.7)
[2020-06-22 18:39] LABS: Acetaminophen < 5.0 ug/mL (10-30); Salicylate < 0.3 mg/dL (3-10)
[2020-06-22 19:20] LABS: Add Urine Microscopic? NO; Charge for UA Resulting for Rev
[2020-06-22 19:29] LABS: Bilirubin Urine Neg (Negative); Blood Urine Neg (Negative); Glucose Urine UA Norm (Normal); Ketones Urine Negative (Negative); Leukocyte Esterase Urine Negative (Negative); Nitrate Urine Negative (Negative); Protein Urine Neg (Negative); Urine Appearance Clear (CLEAR); Urine Color Yellow (Yellow); Urobilinogen Urine 4 mg/dL (Negative); pH Urine 7 (5-7)
[2020-06-22 19:31] LABS: Amphetamines Screen Urine Negative (Negative); Barbiturates Screen Urine Negative (Negative); Benzodiazepines Screen Urine Negative (Negative); Cocaine Screen Urine Negative (Negative); Opiate Screen Urine Negative (Negative); PCP Screen Urine Negative (Negative); THC Screen Urine Negative (Negative)
== END 2020-06-22 19:15 | disposition home or self-care (01) ==
PROVIDERS: Emergency Provider Family Medicine; PCP Internal Medicine
DX: F33.1 Major depressive disorder, recurrent, moderate (principal); F84.0 Autistic disorder
CPT/HCPCS: 36415; 80053; 80306; 80307; 81003; 85025; 99283

== ENCOUNTER → 2020-07-05 10:12 | Outpatient (BNVA) | payer MEDICAID, SELFPAY | PROVIDERS: PCP Internal Medicine; Visit Provider Nurse Practitioner | DX: F84.0 Autistic disorder (principal); F34.81 Disruptive mood dysregulation disorder | CPT/HCPCS: 99214 ==

== ENCOUNTER → 2020-08-26 09:30 | Outpatient (BNVA) | payer MEDICAID, SELFPAY | PROVIDERS: PCP Internal Medicine; Visit Provider Nurse Practitioner | DX: F34.81 Disruptive mood dysregulation disorder (principal); F84.0 Autistic disorder | CPT/HCPCS: 99214 ==

== ENCOUNTER → 2020-09-23 07:31 | Outpatient (BNVA) | payer MEDICAID, SELFPAY | PROVIDERS: PCP Internal Medicine; Visit Provider Nurse Practitioner | DX: F84.0 Autistic disorder (principal); F34.81 Disruptive mood dysregulation disorder | CPT/HCPCS: 99214 ==

== ENCOUNTER 2020-09-27 19:29 | Inpatient (IN) | payer MEDICAID, SELFPAY ==
[2020-09-27 19:34] VITALS: BP 140/82; PULSE 90; RESP 18; TEMP 36.7; O2SAT 96; BMI 23.8
--- NOTE | 2020-09-27 19:51 | W.ED.PSYCH ---
HPI - Psych General: Chief Complaint: Psychiatric Symptoms Stated Complaint: SI Time Seen by Provider: 09/27/20 19:42 History of Present Illness: HPI Narrative: Patient arrived via ambulance with complaint that he went to kill himself earlier today and that has made suicidal statements. They also took a CD to his neck and pushed out like he was try to cut his throat but did not put much pressure against. Patient states he wants psychiatric help that he want to keep on living. complaint: suicidal ideation and feels depressed Onset (ago): day(s) Duration: getting worse History of same: Yes Relieving factors: none Context: new medication(s) Associated psychiatric symptoms: depression and suicidal ideation Associated symptoms: Reports depression and suicidal ideation Treatments prior to arrival: none If self harm: admits thoughts of self harm and has plan Review of Systems Const: Denies: fever(s), chills or body aches Eyes: Denies: change in vision or blurry vision ENMT: Denies: throat pain or nasal congestion Card: Denies: chest pain or dyspnea on exertion Resp: Denies: dyspnea, productive cough or non-productive cough GI: Denies: abdominal pain, nausea or vomiting : Denies: difficulty urinating Musc: Denies: extremity pain Skin/Breast: Denies: rash Neuro: Denies: headache(s) Psych: Reports: depression and suicidal ideation; Denies: anxiety [place]/Lymph: Denies: easy bruising [facility] ED PFSH: Medical History (Updated 06/22/20 @ 18:54 by Marcellus Cristobal MD, [facility] [place]) Autistic disorder Disruptive mood dysregulation disorder Major depressive disorder, recurrent, moderate Social History (Reviewed 06/22/20 @ 17:58 by Marcellus Cristobal MD, [facility] [place]) Smoking and tobacco status: never smoked Physical Exam Const: COMMON NORMALS: no acute distress, average body habitus and patient oriented x3 HENMT: COMMON NORMALS: normocephalic HEAD & SCALP: normal to inspection and normocephalic FACE & SINUS: normal facial exam Eye: COMMON NORMALS: conjunctivae normal GENERAL EYE: appearance normal, both eyes and all related structures CONJUNCTIVA: Yes conjunctivae normal Neck/C-Spine: COMMON NORMALS: no JVD Chest: COMMONS NORMALS: normal inspection of the chest Resp: COMMON NORMALS: normal respiratory effort Cardio: COMMON NORMALS: no JVD, regular rate and regular rhythm RATE: regular rate RHYTHM: regular rhythm GI: COMMON NORMALS: Normal to inspection, nondistended, normoactive bowel sounds present Extremity: COMMON NORMALS: normal to inspection and full ROM Neuro: COMMON NORMALS: patient oriented x3 Psych: COMMON NORMALS: mental status grossly normal and speech normal; negative for denies homicidal ideation and negative for denies suicidal ideation APPEARANCE: Yes grossly normal ATTITUDE: Yes calm and Yes engaged ACTIVITY/MOTOR BEHAVIOR: Yes appropriate eye contact SPEECH: Yes normal speech THOUGHT CONTENT: Yes Normal thought content present Course Vital Signs: Vital signs: Vital Signs Temperature 98.1 F 09/27/20 19:34 Pulse Rate 90 09/27/20 19:34 Respiratory Rate 18 09/27/20 19:34 Blood Pressure 140/82 09/27/20 19:34 Pulse Oximetry 96 09/27/20 19:34 MDM - Psych MDM Narrative: Medical decision making narrative: I spoke to Dr. Howell he agrees to take the patient as admission. I spoke with Dr. Howell agrees accept patient is admission Lab Data: Labs: Lab Results 09/27/20 09/27/20 09/27/20 Range/Units 20:07 20:07 20:18 WBC 8.1 (4.0-10.0) 10^3/ uL RBC 4.80 (4.1-5.3) 10^6/u L Hgb 14.7 (11.7-16.6) g/dL Hct 44.0 (42.0-52.0) % MCV 91.7 (80-94) fl MCH 30.6 (28.0-34.0) pg MCHC 33.4 (30.0-36.0) g/dL RDW 12.0 L (12.1-15.1) % Plt Count 156 (130-400) 10^3/c mm MPV 10.7 H (7.4-10.4) fL Neut % (Auto) 59.9 % Lymph % (Auto) 29.1 % [place] % (Auto) 8.4 % Eos % (Auto) 2.3 % Baso % (Auto) 0.1 % Neut # (Auto) 4.86 (1.8-7.7) 10^3/u L Lymph # (Auto) 2.4 (0.8-4.8) 10^3/u L [place] # (Auto) 0.7 (0.2-0.9) 10^3/u L Eos # (Auto) 0.2 (0.0-0.8) 10^3/u L Baso # (Auto) 0.0 (0.0-0.1) 10^3/u L Nucleated RBC % (a uto) 0 % Nucleated RBCs # 0.0 /100WBC Sodium 139 (136-145) mmol/L Potassium 3.5 (3.5-5.1) mmol/L Chloride 107 (98-107) mmol/L Carbon Dioxide 21 L (22-29) mmol/L Anion Gap 14.5 (5-19) BUN 16 (6-20) mg/dL Creatinine 0.6 L (0.7-1.2) mg/dL GFR Calculation 162.9 H (90-130) mL/min Glucose 102 (65-115) mg/dL Calculated Osmolal ity 289 (285-295) mOsm/k g Calcium 8.8 (8.5-10.5) mg/dL Total Bilirubin 0.2 (0.15-1.2) mg/dL AST 17 (0-40) U/L ALT 42 H (0-41) U/L Alkaline Phosphata se 98 (40-130) IU/L Total Protein 6.8 (6.6-8.7) g/dL Albumin 3.8 (3.5-5.2) g/dL Globulin 3.0 (1.3-4.6) g/dL Salicylates < 0.3 L (3-10) mg/dL Urine Opiates Scre en Negative (Negative) ng/mL Acetaminophen < 5.0 L (10-30) ug/mL Ur Barbiturates Sc reen Negative (Negative) ng/mL Ur Phencyclidine S crn Negative (Negative) ng/mL Ur Amphetamines Sc reen Negative (Negative) ng/mL U Benzodiazepines Scrn Negative (Negative) ng/mL Urine Cocaine Scre en Negative (Negative) ng/mL U Marijuana (THC) Screen Negative (Negative) ng/mL Ethyl Alcohol < 10 (0-10) mg/dL Discharge Plan Discharge Prescriptions: No Action omeprazole 20 mg capsule,delayed release(DR/EC) 40 mg PO DAILY@2200 Qty: 60 RF: 2 prenat.vits,carson,[id number] Tablet 1 tab PO DAILY@2200 RF: 0 medroxyprogesterone 150 mg/mL suspension 150 mg IM Q30D MDD see pharmacy comment RF: 0 acetaminophen [Tylenol Extra Strength] 500 mg tablet 500 mg PO TID PRN (Reason: pain) RF: 0 ibuprofen [Motrin IB] 200 mg capsule 600 mg PO Q6H PRN (Reason: muscle pain) RF: 0 prazosin 1 mg capsule 1 mg PO DAILY PRN (Reason: nightmares) Qty: 30 RF: 2 ziprasidone HCl [Geodon] 40 mg capsule 40 mg PO BID Qty: 60 RF: 1 loratadine 10 mg Capsule 10 mg PO DAILY PRN (Reason: Allergic Symptoms) RF: 0 hydroxyzine HCl 50 mg tablet 50 mg PO BEDTIME PRN (Reason: sleep) RF: 0 naphazoline 0.012 % Drops 1 drp OPHTHALMIC (EYE) DAILY PRN (Reason: Dry Eyes) RF: 0 Coding Level of Care Code ED 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
[2020-09-27 20:17] LABS: Basophils % 0.1 %; Eosinophils # 0.2 10^3/uL (0.0-0.8); Eosinophils % 2.3 %; Hemoglobin 14.7 g/dL (11.7-16.6); Lymphocytes # 2.4 10^3/uL (0.8-4.8); Lymphocytes % 29.1 %; Mean Corpuscular HGB Conc 33.4 g/dL (30.0-36.0); Mean Corpuscular Hemoglobin 30.6 pg (28.0-34.0); Mean Corpuscular Volume 91.7 fl (80-94); Mean Platelet Volume 10.7 fL (7.4-10.4); Monocytes # 0.7 10^3/uL (0.2-0.9); Monocytes % 8.4 %; Neutrophils # 4.86 10^3/uL (1.8-7.7); Neutrophils % 59.9 %; Nucleated Red Blood Cells % 0 %; Platelet Count 156 10^3/cmm (130-400); White Blood Count 8.1 10^3/uL (4.0-10.0)
[2020-09-27 20:43] LABS: Alanine Aminotransferase 42 U/L (0-41); Albumin Level 3.8 g/dL (3.5-5.2); Alkaline Phosphatase 98 IU/L (40-130); Anion Gap 14.5 (5-19); Aspartate Amino Transferase 17 U/L (0-40); Blood Urea Nitrogen 16 mg/dL (6-20); Calcium 8.8 mg/dL (8.5-10.5); Carbon Dioxide 21 mmol/L (22-29); Chloride 107 mmol/L (98-107); Glomerular Filtration Rate 162.9 mL/min (90-130); Glucose 102 mg/dL (65-115); Osmolality Calculated 289 mOsm/kg (285-295); Potassium 3.5 mmol/L (3.5-5.1); Sodium 139 mmol/L (136-145); Total Bilirubin 0.2 mg/dL (0.15-1.2); Total Protein 6.8 g/dL (6.6-8.7)
[2020-09-27 20:43] LABS: Amphetamines Screen Urine Negative (Negative); Barbiturates Screen Urine Negative (Negative); Benzodiazepines Screen Urine Negative (Negative); Cocaine Screen Urine Negative (Negative); Opiate Screen Urine Negative (Negative); PCP Screen Urine Negative (Negative); THC Screen Urine Negative (Negative)
[2020-09-27 20:46] LABS: Acetaminophen < 5.0 ug/mL (10-30); Alcohol Level < 10 mg/dL (0-10); Salicylate < 0.3 mg/dL (3-10)
--- NOTE | 2020-09-27 21:35 | PC.NURSE ---
attempted to call report. no answer on unit. will reattempt calling report.
--- NOTE | 2020-09-27 21:45 | PC.NURSE ---
attempted to call report. no answer on unit. will reattempt.
--- NOTE | 2020-09-27 22:24 | PC.NURSE ---
Erasmo refusing report on patient. Charge nurse advised.
--- NOTE | 2020-09-27 22:40 | PC.NURSE ---
report given to NPQing Zimmerman RN
[2020-09-27 23:04] VITALS: RESP 18; TEMP 36.7; O2SAT 96
[2020-09-27 23:14] VITALS: BP 115/79; PULSE 83; RESP 17; TEMP 36.6; O2SAT 96
[2020-09-28 06:00] VITALS: BP 110/68; PULSE 66; RESP 18; TEMP 36.8; O2SAT 100
[2020-09-28 14:00] VITALS: BP 110/61; PULSE 94; RESP 20; TEMP 36.6; O2SAT 97
[2020-09-28] MEDS: ziprasidone hcl 20 mg Capsule PO (15:56)
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
[2020-09-28] MEDS: ziprasidone hcl 40 mg Capsule PO (19:03)
[2020-09-28 20:36] VITALS: BP 123/79; PULSE 110; RESP 23; TEMP 36.7; O2SAT 95
[2020-09-28] MEDS: hyDROXYzine 25 mg Capsule 50 MG PO (21:44)
[2020-09-28] MEDS: trazodone 50 mg Tablet PO (21:44)
--- NOTE | 2020-09-29 03:43 | PC.NURSE ---
Skin assessment (09/28/20) revealed no wounds or injuries.
[2020-09-29 06:00] VITALS: BP 108/72; PULSE 81; RESP 17; TEMP 36.6; O2SAT 95
[2020-09-29] MEDS: prenatal vitamin Capsule 1 CAP PO (08:51)
--- NOTE | 2020-09-29 10:12 | P.PN_ITS ---
Subjective NPU Subjective: Interval history: Patient presents today feeling resolute and having the Geodon discontinued. He reports that it is likely a partial reason for him feeling numbness. He does show some insight stating that he does have concern that it does help with him managing his anger and he may need to find something to replace that eventually. Otherwise he reports he is feeling fine and denies any other significant issues. Mental Status Exam MSE Comments: This is an extremely tall well-nourished, well-developed white male in hospital scrubs with adequate grooming and limited eye contact. No abnormal movements. More cooperative with exam in mild distress. Speech was more normal rate and volume and fairly childlike. Mood described as a little better, affect congruent. Thought process organized. Thought content: Patient denied any suicidal or homicidal ideation, there were no delusions reported or noted, he denied any auditory or visual hallucinations. Attention and concentration were intact and memory appeared reliable but none were formally tested. He is alert and oriented x3. Insight and judgment appeared fair. Impulse control was improving. Vitals/I&O/Wt Last Vital Signs Temp 97.8 F 09/29/20 06:00 Pulse 81 09/29/20 06:00 Resp 17 09/29/20 06:00 BP 108/72 09/29/20 06:00 Pulse Ox 95 09/29/20 06:00 Weight last 48 hrs Weight 138.799 kg Weight 138.799 kg Weight 113.398 kg Data NPU : 09/27/20 20:07 09/27/20 20:07 A&P Additional A&P Information (1) Suicidal ideation: (2) Hypertrophic granulation tissue: (3) Painful orthopaedic hardware: (4) Major depressive disorder, recurrent, moderate: (5) Disruptive mood dysregulation disorder: (6) Autistic disorder: This is a 25-year-old white male with a long history of mental health issues going back to his childhood with multiple hospitalizations and medication trials who presents reporting a desire to explore changes in his medications because he feels the current medications are preventing him from experiencing feelings.. 1. We will continue current medication 2. Discontinue Geodon officially though he has not taken it since he has been in the hospital. 3. Encouraged individual, group and milieu therapy. 4. Continue to 15-minute checks for safety. Involuntary Hold Information 96 Hour Hold: 96 Hour Involuntary Admission: No Attestations NPU Medical Necessity Statement*: Inpatient hospitalization is medically necessary and the clinically appropriate intervention at this time. We will monitor medications and make changes as indicated. Likely length of stay 2-4 days. 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
[2020-09-29 14:00] VITALS: BP 120/71; PULSE 113; RESP 14; TEMP 36.6; O2SAT 100
[2020-09-29 20:49] VITALS: BP 115/83; PULSE 119; RESP 20; TEMP 37.1; O2SAT 94
[2020-09-30 13:59] VITALS: BP 131/75; PULSE 108; RESP 17; TEMP 36.3; O2SAT 95
--- NOTE | 2020-09-30 16:26 | PM.NPN ---
Subjective NPU Subjective: Interval history: Josh presents today reporting that he has not wanting to take his Depo shot and that he feels confident he can control his sexual urges without this. We discontinued his Geodon and he reports that he is feeling better and he has a signed concern to the Depo shot for the way he has felt in his lack and experiencing emotions in a way that he feels would be appropriate. We discussed his question of whether or not his guardian could forced him to take the injection which I explained to him he could. He reports that his outpatient doctor is in agreement with him discontinuing the injection. We agreed that the treatment team will reach out and determine whether that is accurate. Mental Status Exam MSE Comments: This is an extremely tall well-nourished, well-developed white male in hospital scrubs with adequate grooming and limited eye contact. No abnormal movements. More cooperative with exam in no acute distress. Speech was more normal rate and volume and fairly childlike and lacking prosody. Mood described as better, affect congruent. Thought process organized. Thought content: Patient denied any suicidal or homicidal ideation, there were no delusions reported or noted, he denied any auditory or visual hallucinations. Attention and concentration were intact and memory appeared reliable but none were formally tested. He is alert and oriented x3. Insight and judgment appeared fair. Impulse control was improving. Vitals/I&O/Wt Last Vital Signs Temp 98.1 F 09/30/20 19:55 Pulse 101 H 09/30/20 19:55 Resp 20 H 09/30/20 19:55 BP 117/81 09/30/20 19:55 Pulse Ox 96 09/30/20 19:55 Weight last 48 hrs Weight 138.799 kg Data NPU : 09/27/20 20:07 09/27/20 20:07 A&P Additional A&P Information (1) Suicidal ideation: (2) Hypertrophic granulation tissue: (3) Painful orthopaedic hardware: (4) Major depressive disorder, recurrent, moderate: (5) Disruptive mood dysregulation disorder: (6) Autistic disorder: This is a 25-year-old white male with a long history of mental health issues going back to his childhood with multiple hospitalizations and medication trials who presents reporting a desire to explore changes in his medications because he feels the current medications are preventing him from experiencing feelings.. 1. We will continue current medication 2. Discontinue Geodon officially though he has not taken it since he has been in the hospital. 3. Encouraged individual, group and milieu therapy. 4. Continue to 15-minute checks for safety. 5. We will discuss the injection with his outpatient provider and his guardian. Involuntary Hold Information 96 Hour Hold: 96 Hour Involuntary Admission: No Attestations NPU Medical Necessity Statement*: Inpatient hospitalization is medically necessary and the clinically appropriate intervention at this time. We will monitor medications and make changes as indicated. Likely length of stay 1-3 days. 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
[2020-09-30 19:55] VITALS: BP 117/81; PULSE 101; RESP 20; TEMP 36.7; O2SAT 96
[2020-09-30] MEDS: hyDROXYzine 25 mg Capsule 50 MG PO (22:26)
[2020-09-30] MEDS: trazodone 50 mg Tablet PO (22:27)
--- NOTE | 2020-09-30 22:30 | NPU.GN ---
[facility] Group Topic: General Mood of GroupTrazodone 50mg PO, Vistaril 50mgPO given for sleep and anxiety.
[2020-10-01] MEDS: prenatal vitamin Capsule 1 CAP PO (08:51)
--- NOTE | 2020-10-01 12:20 | NPU.GN ---
[facility] Group Topic: 2 true one false General Mood of Group: Patient did attend group, he was properly dressed, on time, and had good hygiene. In group we played a game called 2 true one false. Everyone had to come up with 2 true statements about their self and one false statement about their self, this was a way to get group members to openly talk about themselves. They are able to utilize positive self talk. The group interacted properly and openly. We discussed the purpose of NPU, ways to openly speak with the physician and discussed the purpose of social service director and safe discharge.
[2020-10-01 14:00] VITALS: BP 133/76; PULSE 66; RESP 18; TEMP 36.4; O2SAT 98
--- NOTE | 2020-10-01 17:57 | PM.NPN ---
Subjective NPU Subjective: Interval history: Patient presents today reporting that he is feeling better off of the Geodon and reporting that he is felt better not taking the Depo injection. Reported however that his outpatient provider thinks he should continue the shot as does his be of support that position. Ultimately he was resistant to the injection but reports that if that is the only thing that stands between him and being able to be discharged he is open to taking injection. We discussed the possibility of him having injection and then returning tomorrow. Mental Status Exam MSE Comments: This is an extremely tall well-nourished, well-developed white male in hospital scrubs with adequate grooming and limited eye contact. No abnormal movements. More cooperative with exam in no acute distress. Speech was more normal rate and volume and fairly childlike and lacking prosody. Mood described as better, I am ready to go home, affect congruent. Thought process organized. Thought content: Patient denied any suicidal or homicidal ideation, there were no delusions reported or noted, he denied any auditory or visual hallucinations. Attention and concentration were intact and memory appeared reliable but none were formally tested. He is alert and oriented x3. Insight and judgment appeared fair. Impulse control was improving. Vitals/I&O/Wt Last Vital Signs Temp 98.2 F 10/01/20 21:29 Pulse 95 10/01/20 21:29 Resp 18 10/01/20 21:29 BP 116/77 10/01/20 21:29 Pulse Ox 96 10/01/20 21:29 Data NPU : 09/27/20 20:07 09/27/20 20:07 A&P Additional A&P Information (1) Suicidal ideation: (2) Hypertrophic granulation tissue: (3) Painful orthopaedic hardware: (4) Major depressive disorder, recurrent, moderate: (5) Disruptive mood dysregulation disorder: (6) Autistic disorder: This is a 25-year-old white male with a long history of mental health issues going back to his childhood with multiple hospitalizations and medication trials who presents reporting a desire to explore changes in his medications because he feels the current medications are preventing him from experiencing feelings.. 1. We will continue current medication 2. Discontinue Geodon officially though he has not taken it since he has been in the hospital. 3. Encouraged individual, group and milieu therapy. 4. Continue to 15-minute checks for safety. 5. Plan to restart the Depo Provera injection and likely discharge tomorrow. Involuntary Hold Information 96 Hour Hold: 96 Hour Involuntary Admission: No Attestations NPU Medical Necessity Statement*: Inpatient hospitalization is medically necessary and the clinically appropriate intervention at this time. We will monitor medications and make changes as indicated. Likely length of stay 1-2 days. 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
[2020-10-01 21:29] VITALS: BP 116/77; PULSE 95; RESP 18; TEMP 36.8; O2SAT 96
[2020-10-01] MEDS: hyDROXYzine 25 mg Capsule 50 MG PO (22:50)
[2020-10-01] MEDS: trazodone 50 mg Tablet PO (22:52)
[2020-10-02 06:00] VITALS: BP 101/67; PULSE 97; RESP 18; TEMP 37; O2SAT 94
[2020-10-02] MEDS: prenatal vitamin Capsule 1 CAP PO (10:13)
[2020-10-02] MEDS: medroxyprogesterone 150 mg/ml SDV 1 mL IM (10:13)
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
[2020-10-02 13:40] VITALS: BP 101/67; PULSE 97; RESP 18; TEMP 37; O2SAT 94
--- NOTE | 2020-10-04 07:32 | PM.NHP ---
Providers/Chief Complaint Admitting Physician: Ruben Howell MD Primary Care Provider: Kenneth Bravo DO Chief Complaint: SI HPI NPU History of Present Illness Josh Colindres is a 25 year old male who presented the emergency department with the following report: Chief Complaint: Psychiatric Symptoms Stated Complaint: NHE Time Seen by Provider: 10/03/20 20:22 Source: patient Mode of arrival: ambulatory Limitations: no limitations History of Present Illness: HPI Narrative: 25-year-old male has a history of autism along with anger disorders. Patient's been admitted here multiple times and was recently discharged 2 days ago. Patient lives at a half-way they state that he got angry today and threatened to kill himself and harm others. Patient is now calm and states. Presented to the neuropsychiatric unit for definitive treatment of those issues. Meds NPU Home Medications Medication Instructions Recorded Confirmed Last Taken Type acetaminophen 500 mg tablet 500 mg PO TID PRN tab MDD SEE 02/13/19 10/03/20 06/21/20 History PHARMACY COMMENT ibuprofen 200 mg capsule 600 mg PO Q6H PRN 02/13/19 10/03/20 09/27/20 History medroxyprogesterone 150 mg/mL 150 mg IM Q30D MDD see pharmacy 02/13/19 10/03/20 10/22/19 History intramuscular suspension comment prenat.vits,carson,[id number] 1 tab PO DAILY@2200 02/13/19 10/03/20 10/02/20 History loratadine 10 mg PO DAILY PRN 11/16/19 10/03/20 11/16/19 History prazosin 1 mg capsule 1 mg PO DAILY PRN #30 cap 01/17/20 10/03/20 06/21/20 Rx hydroxyzine HCl 50 mg PO BEDTIME PRN 06/22/20 10/03/20 06/18/20 History naphazoline 1 drp OPHTHALMIC (EYE) DAILY PRN 06/22/20 10/03/20 Unknown History omeprazole 20 mg capsule,delayed 40 mg PO DAILY@2200 #60 cap 07/05/20 10/03/20 10/02/20 Rx release fluoride (sodium) [SF 5000 Plus] 1 applic DENTAL DAILY 10/03/20 10/03/20 10/03/20 History Allergies Allergy/AdvReac Type Severity Reaction Status Date / Time haloperidol [From Haldol] Allergy Unknown Verified 10/03/20 20:09 methylphenidate Allergy Unknown Verified 10/03/20 20:09 [From Ritalin] PFSH NPU PFS: Medical History (Updated 10/03/20 @ 21:10 by Aga Berry MD) Autistic disorder Disruptive mood dysregulation disorder Major depressive disorder, recurrent, moderate Social History Smoking and tobacco status: never smoked Vitals/I&O/Wt Last Vital Signs Temp 98.6 F 10/02/20 13:40 Pulse 97 10/02/20 13:40 Resp 18 10/02/20 13:40 BP 101/67 10/02/20 13:40 Pulse Ox 94 10/02/20 13:40 Data NPU : 09/27/20 20:07 09/27/20 20:07 A&P Assessment and plan (1) Hypertrophic granulation tissue: Status: Acute (2) Painful orthopaedic hardware: Status: Acute (3) Major depressive disorder, recurrent, moderate: Status: Acute (4) Disruptive mood dysregulation disorder: Status: Acute (5) Autistic disorder: Status: Acute Involuntary Hold Information 96 Hour Hold: 96 Hour Involuntary Admission: No Coding Level of Care Code Acute Blindmaker for [facility] Diagnoses Hypertrophic granulation tissue L91.8 Painful orthopaedic hardware T84.84XA Major depressive disorder, recurrent, moderate F33.1 Disruptive mood dysregulation disorder F34.81 Autistic disorder F84.0
== END 2020-10-02 14:05 | disposition home or self-care (01) | DRG 885 ==
LOC: ER 20:20 → NP 22:04
PROVIDERS: Admitting Provider Psychiatry & Neurology Psychiatry; Emergency Provider Nurse Practitioner Family; PCP Internal Medicine; Visit Provider Psychiatry & Neurology Psychiatry
DX: F33.1 Major depressive disorder, recurrent, moderate (principal); R45.851 Suicidal ideations; F84.0 Autistic disorder; F34.81 Disruptive mood dysregulation disorder; F52.8 Other sexual dysfunction not due to a substance or known physiological condition; F25.9 Schizoaffective disorder, unspecified; F63.81 Intermittent explosive disorder
CPT/HCPCS: 80053; 80306; 80307; 85025; 99285; J1050

== ENCOUNTER 2020-10-03 19:44 | Inpatient (IN) | payer MEDICAID, SELFPAY ==
[2020-10-03 20:02] VITALS: BP 128/80; PULSE 89; RESP 16; TEMP 36.9; O2SAT 96; BMI 28.5
--- NOTE | 2020-10-03 20:27 | W.ED.PSYCH ---
HPI - Psych General: Chief Complaint: Psychiatric Symptoms Stated Complaint: NHE Time Seen by Provider: 10/03/20 20:22 Source: patient Mode of arrival: ambulatory Limitations: no limitations History of Present Illness: HPI Narrative: 25-year-old male has a history of autism along with anger disorders. Patient's been admitted here multiple times and was recently discharged 2 days ago. Patient lives at a assisted they state that he got angry today and threatened to kill himself and harm others. Patient is now calm and states Review of Systems Const: Denies: fever(s), chills, body aches or change in appetite Eyes: Denies: blurry vision or eye discomfort ENMT: Denies: throat pain or dental pain Card: Denies: chest pain Resp: Denies: dyspnea GI: Denies: abdominal pain, nausea, vomiting or diarrhea : Denies: dysuria Musc: Denies: neck pain or back pain Skin/Breast: Denies: rash Neuro: Denies: headache(s) Psych: Reports: mood swings [place]ingo/Lymph: Denies: easy bruising All/Imm: Denies: urticaria PFSH ED PFSH: Medical History (Updated 10/03/20 @ 21:10 by Aga Berry MD) Autistic disorder Disruptive mood dysregulation disorder Major depressive disorder, recurrent, moderate Social History Smoking and tobacco status: never smoked Physical Exam Const: COMMON NORMALS: no acute distress, patient oriented x3 and healthy appearing HENMT: COMMON NORMALS: normocephalic and atraumatic HEAD & SCALP: normocephalic and atraumatic Eye: COMMON NORMALS: Equal, round and reactive pupils present and EOMs intact bilaterally PUPIL: Yes Equal, round and reactive pupils present Neck/C-Spine: COMMON NORMALS: full ROM and supple Chest: COMMONS NORMALS: normal inspection of the chest and normal palpation of entire chest wall Resp: COMMON NORMALS: normal respiratory effort, No retractions, No use of accessory muscles and clear to auscultation bilaterally AUSCULTATION: clear to auscultation bilaterally Cardio: COMMON NORMALS: regular rate, regular rhythm and No murmurs present (Cardio) RATE: regular rate RHYTHM: regular rhythm GI: COMMON NORMALS: Normal to inspection, nondistended, normoactive bowel sounds present, Soft to palpation, non-tender and no masses PALPATION: Yes Soft to palpation Extremity: COMMON NORMALS: normal to inspection and full ROM Neuro: COMMON NORMALS: patient oriented x3, moves all extremities and no focal motor deficits Psych: COMMON NORMALS: mental status grossly normal, Normal thought process present and cooperative THOUGHT PROCESS: Normal thought process present THOUGHT CONTENT: Yes Suicidality present Skin: COMMON NORMALS: no rashes or lesions noted and no wounds GENERAL SKIN EXAM: no rashes or lesions noted Course Vital Signs: Vital signs: Vital Signs Temperature 98.4 F 10/03/20 20:02 Pulse Rate 78 10/03/20 21:09 Respiratory Rate 18 10/03/20 21:09 Blood Pressure 141/74 10/03/20 21:09 Pulse Oximetry 96 10/03/20 21:09 MDM - Psych MDM Narrative: Medical decision making narrative: Patient presents here with anger issues. I had Dr. Edwards's evaluate the patient and will admit to the psychiatric unit voluntarily. Lab Data: Labs: Lab Results 10/03/20 Range/Units 20:55 WBC 8.4 (4.0-10.0) 10^3/ uL RBC 4.93 (4.1-5.3) 10^6/u L Hgb 15.3 (11.7-16.6) g/dL Hct 45.0 (42.0-52.0) % MCV 91.3 (80-94) fl MCH 31.0 (28.0-34.0) pg MCHC 34.0 (30.0-36.0) g/dL RDW 12.0 L (12.1-15.1) % Plt Count 186 (130-400) 10^3/c mm MPV 10.1 (7.4-10.4) fL Neut % (Auto) 58.0 % Lymph % (Auto) 31.2 % [place] % (Auto) 8.1 % Eos % (Auto) 1.8 % Baso % (Auto) 0.5 % Neut # (Auto) 4.85 (1.8-7.7) 10^3/u L Lymph # (Auto) 2.6 (0.8-4.8) 10^3/u L [place] # (Auto) 0.7 (0.2-0.9) 10^3/u L Eos # (Auto) 0.2 (0.0-0.8) 10^3/u L Baso # (Auto) 0.0 (0.0-0.1) 10^3/u L Nucleated RBC % (a uto) 0 % Nucleated RBCs # 0.0 /100WBC Discharge Plan Discharge Patient Disposition: Admitted As Inpatient Clinical Impression: Autistic disorder, Disruptive mood dysregulation disorder, Major depressive disorder, recurrent, moderate Condition: Stable Coding Level of Care Code ED Chips Screen Tender for [place] Fwd Exam Comprehensive
[2020-10-03 21:07] LABS: Basophils % 0.5 %; Eosinophils # 0.2 10^3/uL (0.0-0.8); Eosinophils % 1.8 %; Hemoglobin 15.3 g/dL (11.7-16.6); Lymphocytes # 2.6 10^3/uL (0.8-4.8); Lymphocytes % 31.2 %; Mean Corpuscular Volume 91.3 fl (80-94); Mean Platelet Volume 10.1 fL (7.4-10.4); Monocytes # 0.7 10^3/uL (0.2-0.9); Monocytes % 8.1 %; Neutrophils # 4.85 10^3/uL (1.8-7.7); Nucleated Red Blood Cells % 0 %; Platelet Count 186 10^3/cmm (130-400); Red Blood Count 4.93 10^6/uL (4.1-5.3); White Blood Count 8.4 10^3/uL (4.0-10.0)
[2020-10-03 21:09] VITALS: BP 141/74; PULSE 78; RESP 18; O2SAT 96
--- NOTE | 2020-10-03 21:13 | PC.PHAR ---
PT LIVES IN A HALFWAY AND CANNOT CONFIRM HIS MEDICATIONS. PT'S SPRAY GUN SIZER HAD THE MAR AND CONFIRMED THE MEDICATIONS WITH ME.
[2020-10-03 21:36] VITALS: BP 141/74; PULSE 79; RESP 18; TEMP 36.9; O2SAT 98
[2020-10-03 21:39] LABS: Alanine Aminotransferase 46 U/L (0-41); Albumin Level 3.9 g/dL (3.5-5.2); Alkaline Phosphatase 94 IU/L (40-130); Aspartate Amino Transferase 19 U/L (0-40); Blood Urea Nitrogen 11 mg/dL (6-20); Calcium 8.8 mg/dL (8.5-10.5); Carbon Dioxide 26 mmol/L (22-29); Chloride 107 mmol/L (98-107); Glomerular Filtration Rate 136.3 mL/min (90-130); Glucose 90 mg/dL (65-115); Osmolality Calculated 291 mOsm/kg (285-295); Sodium 141 mmol/L (136-145); Total Bilirubin 0.3 mg/dL (0.15-1.2); Total Protein 6.9 g/dL (6.6-8.7)
[2020-10-03 21:40] LABS: Acetaminophen < 5.0 ug/mL (10-30); Alcohol Level < 10 mg/dL (0-10); Salicylate < 0.3 mg/dL (3-10)
[2020-10-03 22:00] VITALS: BP 141/74; PULSE 79; RESP 18; TEMP 36.9; O2SAT 98
--- NOTE | 2020-10-03 22:01 | PC.NURSE ---
ADMIT PT RETURNS TO NPU TONIGHT WITH DEPRESSIVE S/S. pT STATES HE IS UNABLE TO FEEL EMOTIONS, HE CAN NOT FIND SANCHO IN ANYTHING HE DOES. PT STATES HE DOES NOT FEEL SI BUT DOES NOT WANT TO GET TO THAT POINT IF HIS MEDICATIONS NEED TO BE CHANGED.
[2020-10-03] MEDS: trazodone 50 mg Tablet PO (22:12)
[2020-10-03 22:19] LABS: Amphetamines Screen Urine Negative (Negative); Barbiturates Screen Urine Negative (Negative); Cocaine Screen Urine Negative (Negative); PCP Screen Urine Negative (Negative); THC Screen Urine Negative (Negative)
[2020-10-03 22:20] LABS: Benzodiazepines Screen Urine Negative (Negative); Opiate Screen Urine Negative (Negative)
[2020-10-04 06:00] VITALS: BP 112/51; PULSE 82; RESP 17; TEMP 36.8; O2SAT 99
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
[2020-10-04 14:00] VITALS: BP 135/78; PULSE 92; RESP 17; TEMP 36.4; O2SAT 96
[2020-10-04] MEDS: acetaminophen 325 mg Tablet 650 MG PO (19:20)
[2020-10-04] MEDS: pantoprazole DR 40 mg Tablet PO (20:49)
[2020-10-04] MEDS: ziprasidone hcl 40 mg Capsule PO (20:50)
[2020-10-04] MEDS: prenatal vitamin Capsule 1 CAP PO (20:50)
[2020-10-04] MEDS: trazodone 50 mg Tablet PO (20:50)
[2020-10-04 22:00] VITALS: BP 168/94; PULSE 108; RESP 18; TEMP 36.8; O2SAT 97
[2020-10-05 06:00] VITALS: RESP 17
[2020-10-05] MEDS: acetaminophen 325 mg Tablet 650 MG PO ×2 (07:27→15:42)
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
--- NOTE | 2020-10-05 11:06 | P.PN_ITS ---
Subjective NPU Subjective: Interval history: Josh presented today seeming fairly animated on the unit. Skipping around, feigning push-ups. He reported tolerating the resumption of his Geodon well and is not complaining of any issues related to him restarting the Depo-Provera a few days ago prior to his last discharge. Today he is now somewhat driven about starting an antidepressant. We agreed we would review his charts to see if we can identify what he has been on and try something new as he has no reports of something he had success on in the past. He reports he sleeping okay. Mental Status Exam MSE Comments: This is a tall, overweight, white male, in [facility] scrubs with adequate grooming, and limited eye contact. No abnormal movements except for mild psychomotor agitation. Cooperative with exam in no acute distress. Speech was slightly increased rate and volume with limited prosody. Mood described as depressed, affect congruent. Thought process organized, thought content: patient denied suicidal or homicidal ideation, there were no delusions reported or noted, he denied any auditory or visual hallucinations. Attention and concentration were intact, and memory appeared reliable, but none were formally tested. He is alert and oriented times three. Insight and judgment are limited. Impulse control is impaired. Vitals/I&O/Wt Last Vital Signs Temp 98.3 F 10/04/20 22:00 Pulse 108 H 10/04/20 22:00 Resp 17 10/05/20 06:00 BP 168/94 10/04/20 22:00 Pulse Ox 97 10/04/20 22:00 Weight last 48 hrs Weight 136.078 kg Data NPU : 10/03/20 20:55 10/03/20 20:55 A&P Additional A&P Information (1) Hypertrophic granulation tissue: (2) Painful orthopaedic hardware: (3) Major depressive disorder, recurrent, moderate: (4) Disruptive mood dysregulation disorder: (5) Autistic disorder: Additional A&P Information This is a 25-year-old, white male, with autism, major depressive disorder, recurrent, disruptive mood dysregulation disorder, and fetishism, who presents off of mood stabilizer, having difficulty managing his moods, just discharged two days ago. RECOMMENDATION AND PLAN: 1. Continue current medication. We restarted Geodon 40 mg p.o. q. evening with meals. 2. Continue every 15 minute checks for safety. 3. Encourage individual, group and milieu therapies. 4. Encourage sober living treatment after discharge at the highest level of care to which he is willing to commit. 5. We will consider an antidepressant and then initiate with approval. Involuntary Hold Information 96 Hour Hold: 96 Hour Involuntary Admission: No Attestations NPU Medical Necessity Statement*: Inpatient hospitalization is medically necessary and the clinically appropriate intervention, at this time. We will monitor medications and make changes as indicated. Likely length of stay is 3-5 days. Coding Level of Care Code Acute Product Scientist for Alva Che
[2020-10-05 14:00] VITALS: BP 132/84; PULSE 92; RESP 17; TEMP 36.4; O2SAT 93
[2020-10-05 20:02] VITALS: BP 131/74; PULSE 86; RESP 18; TEMP 36.8; O2SAT 99
[2020-10-05] MEDS: trazodone 50 mg Tablet PO (20:59)
[2020-10-05] MEDS: pantoprazole DR 40 mg Tablet PO (20:59)
[2020-10-05] MEDS: ziprasidone hcl 40 mg Capsule PO (20:59)
[2020-10-05] MEDS: prenatal vitamin Capsule 1 CAP PO (20:59)
[2020-10-06 05:48] VITALS: BP 132/78; PULSE 94; RESP 17; TEMP 36.7; O2SAT 99
--- NOTE | 2020-10-06 09:35 | PM.NPN ---
Subjective NPU Subjective: Interval history: Josh presents today reporting that he is doing a little better from the standpoint of headaches and impulse control. He reports he still feeling depressed and we discussed the risk-benefit and alternatives of considering Wellbutrin and he wanted to verify whether it something he was taken before we will reach out to his outpatient provider, his guardian and checked the chart. Otherwise reports he is doing fine and sleeping okay. Mental Status Exam MSE Comments: This is a tall, overweight, white male, in [facility] scrubs with adequate grooming, and improving eye contact. No abnormal movements except for mild psychomotor agitation. Cooperative with exam. In no acute distress. Speech had normal rate and volume, with decreased prosody. Mood described as depressed, affect congruent. Thought process organized, thought content: patient denied suicidal or homicidal ideation, there were no delusions reported or noted, he denied any auditory or visual hallucinations. Attention and concentration were intact, and memory appeared reliable, but none were formally tested. He is alert and oriented to person and situation at least. Insight and judgment are limited. Impulse control is impaired. Vitals/I&O/Wt Last Vital Signs Temp 98.0 F 10/06/20 05:48 Pulse 94 10/06/20 05:48 Resp 17 10/06/20 05:48 BP 132/78 10/06/20 05:48 Pulse Ox 99 10/06/20 05:48 Weight last 48 hrs Weight 138.346 kg Weight 138.346 kg Data NPU : 10/03/20 20:55 10/03/20 20:55 A&P Additional A&P Information (1) Hypertrophic granulation tissue: (2) Painful orthopaedic hardware: (3) Major depressive disorder, recurrent, moderate: (4) Disruptive mood dysregulation disorder: (5) Autistic disorder: Additional A&P Information This is a 25-year-old, white male, with autism, major depressive disorder, recurrent, disruptive mood dysregulation disorder, and fetishism, who presents off of mood stabilizer, having difficulty managing his moods, just discharged two days ago. RECOMMENDATION AND PLAN: 1. Continue current medication. 2. Continue every 15 minute checks for safety. 3. Encourage individual, group and milieu therapies. 4. Encourage sober living treatment after discharge at the highest level of care to which he is willing to commit. 5. We will consider starting Wellbutrin XL with approval Involuntary Hold Information 96 Hour Hold: 96 Hour Involuntary Admission: No Attestations NPU Medical Necessity Statement*: Inpatient hospitalization is medically necessary and the clinically appropriate intervention, at this time. We will monitor medications and make changes as indicated. Likely length of stay is 2-4 days. Coding Level of Care Code Acute Regional Account Executive for Alva Che
[2020-10-06 14:00] VITALS: BP 132/81; PULSE 119; RESP 17; TEMP 36.9; O2SAT 94
[2020-10-06 20:14] VITALS: BP 128/84; PULSE 87; RESP 20; TEMP 36.8; O2SAT 93
[2020-10-06] MEDS: prenatal vitamin Capsule 1 CAP PO (21:33)
[2020-10-06] MEDS: ziprasidone hcl 40 mg Capsule PO (21:33)
[2020-10-06] MEDS: pantoprazole DR 40 mg Tablet PO (21:33)
[2020-10-06] MEDS: trazodone 50 mg Tablet PO (21:33)
[2020-10-07 06:00] VITALS: BP 137/89; PULSE 96; RESP 20; TEMP 36.7; O2SAT 97
[2020-10-07] MEDS: acetaminophen 325 mg Tablet 650 MG PO ×2 (11:13→17:32)
[2020-10-07 14:00] VITALS: BP 130/74; PULSE 91; RESP 20; TEMP 36.2; O2SAT 99
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
[2020-10-07 21:37] VITALS: BP 125/70; PULSE 102; RESP 20; TEMP 36.6; O2SAT 95
[2020-10-07] MEDS: pantoprazole DR 40 mg Tablet PO (21:50)
[2020-10-07] MEDS: ziprasidone hcl 40 mg Capsule PO (21:50)
[2020-10-07] MEDS: prenatal vitamin Capsule 1 CAP PO (21:50)
[2020-10-07] MEDS: trazodone 50 mg Tablet PO (21:50)
[2020-10-08 06:00] VITALS: RESP 18
[2020-10-08] MEDS: buPROPion XL (24 HR) 150 mg Tablet PO (08:43)
--- NOTE | 2020-10-08 12:19 | NPU.GN ---
[facility] Unit Group Topic:Thought Processing General Mood of Group: The patient come to group willingly. The patient was on time, good hygiene and properly dressed. The group discussed how the mind thinks and discussed negative thoughts and how we process those negative thoughts. The patient did participate in the group. The patient were all gave a thought table to be able to list specific negative thoughts and were able to come up with different ways to cope with those thoughts. The group was able to go outside for fresh air, which in turn helped the group to open up more. Information about the NPU was discussed, information about the routine for NPU, the doctor and nursing staff as well as social media executive and how they each play a part in their care while here. 96 hr holds and 21 day holds were also explained as well.
[2020-10-08 14:00] VITALS: BP 123/83; PULSE 106; RESP 18; TEMP 36.6; O2SAT 96
--- NOTE | 2020-10-08 16:25 | P.PN_ITS ---
Subjective NPU Subjective: Interval history: I discussed the patient's progress with the treatment team and met with the patient in the day room. He told me that he had not felt any benefit from the Wellbutrin so far, but that he did notice he did not feel like taking a nap. I explained again the timeframe for Wellbutrin's taking effect. He has no medication side effects. He says he has had a good day so far. He has been in a normal mood, emotionless. He denies any urges to or kill himself. He says that he is doing okay physically as well. Mental Status Exam MSE Comments: This is a tall, overweight, white male, in [facility] scrubs with adequate grooming, and improving eye contact. No abnormal movements. Cooperative with exam. In no acute distress. Speech had normal rate and volume, with decreased prosody. Mood described as emotionless, affect was bright, however. Thought process organized, thought content: patient denied suicidal or homicidal ideation, there were no delusions reported or noted, he denied any auditory or visual hallucinations. Attention and concentration were intact, and memory appeared reliable, but none were formally tested. He is alert and orie nted to person and situation at least. Insight and judgment are limited. Impulse control is impaired. Vitals/I&O/Wt Last Vital Signs Temp 98.1 F 10/08/20 20:05 Pulse 94 10/08/20 20:05 Resp 20 H 10/08/20 20:05 BP 132/78 10/08/20 20:05 Pulse Ox 96 10/08/20 20:05 Data NPU : 10/03/20 20:55 10/03/20 20:55 A&P Assessment and plan (1) Major depressive disorder, recurrent, moderate: Status: Acute (2) Disruptive mood dysregulation disorder: Status: Acute (3) Autistic disorder: Status: Acute (4) Hypertrophic granulation tissue: Status: Acute (5) Painful orthopaedic hardware: Status: Acute Additional A&P Information This is a 25-year-old, white male, with autism, major depressive disorder, recurrent, disruptive mood dysregulation disorder, and fetishism, who presents off of mood stabilizer, having difficulty managing his moods, just discharged two days ago. RECOMMENDATION AND PLAN: 1. Continue current medication. We started Wellbutrin XL 150 mg daily for depression, and there have been no side effects. 2. Continue every 15 minute checks for safety. 3. Encourage individual, group and milieu therapies. 4. Encourage sober living treatment after discharge at the highest level of care to which he is willing to commit. Involuntary Hold Information 96 Hour Hold: 96 Hour Involuntary Admission: No Attestations NPU Medical Necessity Statement*: Inpatient hospitalization is medically necessary and the clinically appropriate intervention, at this time. We will monitor medications and make changes as indicated. Likely length of stay is 1-3 days. Coding Level of Care Code Acute Per Diem Rn for Chg Fwd Diagnoses Major depressive disorder, recurrent, moderate F33.1 Disruptive mood dysregulation disorder F34.81 Autistic disorder F84.0 Hypertrophic granulation tissue L91.8 Painful orthopaedic hardware T84.84XA
[2020-10-08 20:05] VITALS: BP 132/78; PULSE 94; RESP 20; TEMP 36.7; O2SAT 96
[2020-10-08] MEDS: pantoprazole DR 40 mg Tablet PO (21:07)
[2020-10-08] MEDS: trazodone 50 mg Tablet PO (21:07)
[2020-10-08] MEDS: ziprasidone hcl 40 mg Capsule PO (21:08)
[2020-10-08] MEDS: prenatal vitamin Capsule 1 CAP PO (21:08)
[2020-10-08] MEDS: prazosin 1 mg Capsule PO (22:13)
[2020-10-08] MEDS: OLANZapine 5 mg ODT PO (22:13)
[2020-10-09 06:00] VITALS: BP 99/59; PULSE 81; RESP 17; TEMP 36.8; O2SAT 93
[2020-10-09] MEDS: buPROPion XL (24 HR) 150 mg Tablet PO (08:21)
[2020-10-09] MEDS: acetaminophen 325 mg Tablet 650 MG PO (10:40)
--- NOTE | 2020-10-09 10:42 | PC.NURSE ---
Patient refused Depo-Provera injection. He states it was administered last week when he was here.
[2020-10-09 11:21] VITALS: BP 99/59; PULSE 81; RESP 17; TEMP 36.8; O2SAT 93
--- NOTE | 2020-10-09 12:28 | PM.NDC ---
Diagnoses at Discharge Discharge Diagnosis (1) Major depressive disorder, recurrent, moderate: Status: Resolved (2) Disruptive mood dysregulation disorder: Status: Acute (3) Autistic disorder: Status: Acute (4) Hypertrophic granulation tissue: Status: Acute (5) Painful orthopaedic hardware: Status: Acute Reason for Visit Reason for Visit: NHE Brief History: Josh Colindres is a 25 year old male who presented to the emergency department the following report: Chief Complaint: Psychiatric Symptoms Stated Complaint: NHE Time Seen by Provider: 10/03/20 20:22 Source: patient Mode of arrival: ambulatory Limitations: no limitations History of Present Illness: HPI Narrative: 25-year-old male has a history of autism along with anger disorders. Patient's been admitted here multiple times and was recently discharged 2 days ago. Patient lives at a longterm they state that he got angry today and threatened to kill himself and harm others. Patient is now calm and states. Presented to the neuropsychiatric unit for definitive treatment of those issues.Josh presents today reporting that he acknowledges now that the need for a different mood stabilizer is necessary. He reports he went back to his residence and was struggling with irritability and being more easily frustrated than he normally is. He reports that he tried to manage his impulses, but he was unable to, and so he presented to the emergency department last night. We discussed the risks, benefits, and alternatives of discussing his situation with his outpatient provider, who has a more robust history of the medications that he has been tried on and see if she has some suggestions for the next direction to go, and he understood and agreed to proceed as is documented in this note with that plan. Hospital Course Hospital Course The patient was admitted to the neuropsychiatric unit for definitive treatment of these issues. On the unit he slowly acclimated to the individual, group and milieu therapies. There were some mild psychotic symptoms present initially which resolved. Wellbutrin XL 150 mg daily was added to treat depression and the feeling that he has emotionless. He had no side effects on the medication and he felt he could experience more happiness. He was receptive to treatment team recommendations and showed modest improvement and was able to contract for safety prior to discharge. During the hospitalization, patient had routine laboratory studies which were within normal limits except for few outliers. Additionally there was a general medical evaluation which was also within normal limits and revealed no new acute processes. Discharge Summary: At the time of discharge, psychosis and lethality were denied. Mood and anxiety were well managed. Patient endorsed a plan to avoid all drugs of abuse and follow-up with the aftercare recommendations of the treatment team. Patient was evaluated and deemed to be absent credible lethality, and had achieved the maximum benefit from an inpatient hospitalization, so was discharged. Involuntary Hold Information 96 Hour Hold: 96 Hour Involuntary Admission: No Mental Status Exam MSE Comments: This is a tall, overweight, white male, in [facility] scrubs with adequate grooming, and improving eye contact. No abnormal movements. Cooperative with exam. In no acute distress. Speech had normal rate and volume, with decreased prosody. Mood described as better, and affect was bright. Thought process organized, thought content: patient denied suicidal or homicidal ideation, there were no delusions reported or noted, he denied any auditory or visual hallucinations. Attention and concentration were intact, and memory appeared reliable, but none were formally tested. He is alert and oriented to person and situation at least. Insight and judgment are limited. Impulse control is impaired. Discharge Data Vitals: Last Vital Signs Temp 98.3 F 10/09/20 11:21 Pulse 81 10/09/20 11:21 Resp 17 10/09/20 11:21 BP 99/59 10/09/20 11:21 Pulse Ox 93 10/09/20 11:21 Discharge Plan Discharge Patient Disposition: Home Condition: Stable Prescriptions: New bupropion HCl 150 mg Tablet Extended Release 24 Hr 150 mg PO DAILY 30 Days Qty: 30 RF: 0 trazodone 50 mg Tablet 50 mg PO BEDTIME 30 Days Qty: 30 RF: 0 ziprasidone HCl 40 mg Capsule 40 mg PO BEDTIME 30 Days Qty: 30 RF: 0 Continued omeprazole 20 mg capsule,delayed release(DR/EC) 40 mg PO DAILY@2200 Qty: 60 RF: 2 prenat.vits,carson,[id number] Tablet 1 tab PO DAILY@2200 RF: 0 medroxyprogesterone 150 mg/mL suspension 150 mg IM Q30D MDD see pharmacy comment RF: 0 acetaminophen [Tylenol Extra Strength] 500 mg tablet 500 mg PO TID MDD SEE PHARMACY COMMENT PRN (Reason: pain) RF: 0 ibuprofen [Motrin IB] 200 mg capsule 600 mg PO Q6H PRN (Reason: muscle pain) RF: 0 prazosin 1 mg capsule 1 mg PO DAILY PRN (Reason: nightmares) Qty: 30 RF: 2 loratadine 10 mg Capsule 10 mg PO DAILY PRN (Reason: Allergic Symptoms) RF: 0 SF 5000 Plus 1.1 % Cream 1 applic DENTAL DAILY RF: 0 hydroxyzine HCl 50 mg tablet 50 mg PO BEDTIME PRN (Reason: sleep) RF: 0 naphazoline 0.012 % Drops 1 drp OPHTHALMIC (EYE) DAILY PRN (Reason: Dry Eyes) RF: 0 Discharge Orders: Discharge Order (Routine); Ordered 10/09/20 Ordered By: Hector Barreto Referrals: [facility] [Other] - 10/21/20 10:30 am Kenneth Bravo DO [Primary Care Provider] - Discharge Diet: Usual diet Discharge Activity: Resume usual activity Patient Instructions: Generalized Anxiety Disorder (DC), Opioid Safety Activity Restrictions/Additional Instructions: DEPO SHOT given 10/02/20 Discharge Attestations NPU Time Spent in Discharge Care*: less than 30 min Specific Discharge Activities: Specific discharge activities: educating patient, discussing with medical case manager/social workers/dc planners, documenting/other paperwork and evaluating patient/reviewing data Status at Discharge: Cognitive status at discharge: cognitively intact, Behavioral status at discharge: cooperative, Functional status at discharge: independent ambulation Overall status at discharge: patient is back to baseline Coding Level of Care Code Acute Chg FW DC note Diagnoses Major depressive disorder, recurrent, moderate F33.1 Disruptive mood dysregulation disorder F34.81 Autistic disorder F84.0 Hypertrophic granulation tissue L91.8 Painful orthopaedic hardware T84.84XA
== END 2020-10-09 12:09 | disposition home or self-care (01) | DRG 885 ==
LOC: ER 21:10 → NP 21:29
PROVIDERS: Admitting Provider Psychiatry & Neurology Psychiatry; Emergency Provider Emergency Medicine; PCP Internal Medicine; Visit Provider Psychiatry & Neurology Child & Adolescent Psychiatry
DX: F33.1 Major depressive disorder, recurrent, moderate (principal); F34.81 Disruptive mood dysregulation disorder; F84.0 Autistic disorder; E66.3 Overweight; Z68.29 Body mass index [BMI] 29.0-29.9, adult; F65.0 Fetishism
CPT/HCPCS: 80053; 80306; 80307; 85025; 99285

== ENCOUNTER 2020-10-10 19:00 | Emergency (ER) | payer MEDICAID, SELFPAY ==
--- NOTE | 2020-10-10 19:10 | ED_ITS ---
HPI - Psych General: Chief Complaint: Psychiatric Symptoms Stated Complaint: THOUGHTS OF SELF HARM Time Seen by Provider: 10/10/20 19:09 History of Present Illness: HPI Narrative: Mr. Colindres is a 25-year-old gentleman with complex past medical history including autism spectrum disorder and psychiatric disorder who presents the emergency department due to agitation and thoughts of self-harm and harming others. He has recently been inpatient and had medications titrated and was restarted on Wellbutrin. He is accompanied by a health care assistant who, with the patient's permission, provide supplemental history. Reported the patient has a longstanding history of difficulty controlling behavior when triggered by specific events. Food is a major trigger for him and he currently out of food stamp money though he will get more in the next day or 2. He became upset and was witnessed pretending to drink bleach. Additionally he started yelling and became upset at a number of circumstances around him including a baseball game going on and something about the neighbor.The health care assistant called police when the patient broke glass. He has had similar outbursts in the past. The patient endorses complaints of feeling empty inside. Now that he is calm he denies that he would never actually harm himself. He is frustrated and does not feel comfortable in his current situation given that the medications have not started to work yet. He otherwise denies injury or medical complaint. His symptoms have been longstanding and typically occur in cycles or waves. No other specific exacerbating, alleviating, or provoking factors identified. Review of Systems General: Reports: 10 or more systems reviewed and unremarkable except in HPI and below Narrative: CONSTITUTIONAL: denies fever, fatigue, weakness EYES - denies pain, denies loss of vision EARS - denies ear issues. NOSE - denies congestion or rhinorrhea. THROAT - denies sore throat or difficulty swallowing. CARDIOVASCULAR - denies chest pain and palpitations RESPIRATORY - denies shortness of breath and cough GASTROINTESTINAL - denies abdominal pain, no nausea vomiting, no changes in bowel habits GENITOURINARY - denies dysuria or urinary frequency MUSCULOSKELETAL- denies deformity or pain SKIN - denies rashes or new changed skin lesions NEUROLOGIC - denies focal weakness or sensory changes HEMATOLOGIC/LYMPHATIC - denies easy bruising or lymphadenopathy. PSYCH - see HPI PFS ED PFSH: Medical History Autistic disorder Disruptive mood dysregulation disorder Major depressive disorder, recurrent, moderate Social History Smoking and tobacco status: never smoked Physical Exam Narrative: EXAM NARRATIVE: GENERAL/CONSTITUTIONAL - well-appearing. No acute distress. Mildly agitated Eyes - PERRL, no conjunctival injection ENMT - Atraumatic external nose and ears. Moist mucous membranes NECK - supple. trachea midline CARDIOVASCULAR - regular rate and rhythm. Peripheral pulses 2+ and equal RESPIRATORY -clear to auscultation bilaterally. No retractions or accessory muscle use. ABDOMEN/GI - Nontender/Nondistended. No tenderness to percussion or evidence of peritonitis MSK - Extremities without obvious deformity or tenderness to palpation SKIN - Warm, Dry NEURO - alert and appropriately oriented. strength and sensation intact. Moves all extremities equally. PSYCH -patient has good insight currently into his outburst. He denies that he would ever act on killing himself. He denies intent to harm others. Course ED course: - Patient was seen and evaluated by me at bedside -Vital signs obtained - Initial evaluation notable for no acute distress, nontoxic appearance. Still mildly agitated though much more calm than reported history. - Labs notable for no acute intervention required based on labs. - Dr Howell with the psychiatry service consulted and evaluated the patient. Patient can be safely discharged for outpatient follow-up. - This is a challenging situation, the patient carries psychiatric diagnoses how ever this is complicated by underlying autism spectrum disorder. Many of these behaviors may be improved by allowing medication to take effect however this will likely take some more time. Additionally some of the behaviors are more related to the autism spectrum disorder than psychiatric disorder. - Patient was unhappy with plan to discharge however there is no indication for hospitalization at this time. - Patient discharged in satisfactory condition. Vital Signs: Vital signs: Vital Signs Temperature 96.5 F L 10/10/20 19:16 Pulse Rate 99 10/10/20 19:16 Respiratory Rate 18 10/10/20 19:16 Blood Pressure 140/100 10/10/20 19:16 Pulse Oximetry 96 10/10/20 19:16 [facility] - Psych Medical Records: Attestation: I reviewed the patient's medical records. Lab Data: Attestation: I reviewed the patient's lab results. Labs: Lab Results 10/10/20 10/10/20 10/10/20 Range/Units 19:24 19:50 19:50 WBC 8.0 (4.0-10.0) 10^3/ uL RBC 4.78 (4.1-5.3) 10^6/u L Hgb 14.6 (11.7-16.6) g/dL Hct 42.4 (42.0-52.0) % MCV 88.7 (80-94) fl MCH 30.5 (28.0-34.0) pg MCHC 34.4 (30.0-36.0) g/dL RDW 11.7 L (12.1-15.1) % Plt Count 174 (130-400) 10^3/c mm MPV 10.0 (7.4-10.4) fL Neut % (Auto) 60.4 % Lymph % (Auto) 29.6 % [place] % (Auto) 7.6 % Eos % (Auto) 1.5 % Baso % (Auto) 0.6 % Neut # (Auto) 4.83 (1.8-7.7) 10^3/u L Lymph # (Auto) 2.4 (0.8-4.8) 10^3/u L [place] # (Auto) 0.6 (0.2-0.9) 10^3/u L Eos # (Auto) 0.1 (0.0-0.8) 10^3/u L Baso # (Auto) 0.1 (0.0-0.1) 10^3/u L Nucleated RBC % (a uto) 0 % Nucleated RBCs # 0.0 /100WBC Sodium 141 (136-145) mmol/L Potassium 3.8 (3.5-5.1) mmol/L Chloride 109 H (98-107) mmol/L Carbon Dioxide 21 L (22-29) mmol/L Anion Gap 14.8 (5-19) BUN 13 (6-20) mg/dL Creatinine 0.7 (0.7-1.2) mg/dL GFR Calculation 136.3 H (90-130) mL/min Glucose 89 (65-115) mg/dL POC Glucose 95 (70-110) mg/dL Calculated Osmolal ity 292 (285-295) mOsm/k g Calcium 8.8 (8.5-10.5) mg/dL Total Bilirubin 0.4 (0.15-1.2) mg/dL AST 24 (0-40) U/L ALT 52 H (0-41) U/L Alkaline Phosphata se 84 (40-130) IU/L Total Protein 6.9 (6.6-8.7) g/dL Albumin 3.9 (3.5-5.2) g/dL Globulin 3.0 (1.3-4.6) g/dL Salicylates < 0.3 L (3-10) mg/dL Urine Opiates Scre en (Negative) ng/mL Acetaminophen < 5.0 L (10-30) ug/mL Ur Barbiturates Sc reen (Negative) ng/mL Ur Phencyclidine S crn (Negative) ng/mL Ur Amphetamines Sc reen (Negative) ng/mL U Benzodiazepines Scrn (Negative) ng/mL Urine Cocaine Scre en (Negative) ng/mL U Marijuana (THC) Screen (Negative) ng/mL Ethyl Alcohol < 10 (0-10) mg/dL 10/10/20 Range/Units 19:55 WBC (4.0-10.0) 10^3/ uL RBC (4.1-5.3) 10^6/u L Hgb (11.7-16.6) g/dL Hct (42.0-52.0) % MCV (80-94) fl MCH (28.0-34.0) pg MCHC (30.0-36.0) g/dL RDW (12.1-15.1) % Plt Count (130-400) 10^3/c mm MPV (7.4-10.4) fL Neut % (Auto) % Lymph % (Auto) % [place] % (Auto) % Eos % (Auto) % Baso % (Auto) % Neut # (Auto) (1.8-7.7) 10^3/u L Lymph # (Auto) (0.8-4.8) 10^3/u L [place] # (Auto) (0.2-0.9) 10^3/u L Eos # (Auto) (0.0-0.8) 10^3/u L Baso # (Auto) (0.0-0.1) 10^3/u L Nucleated RBC % (a uto) % Nucleated RBCs # /100WBC Sodium (136-145) mmol/L Potassium (3.5-5.1) mmol/L Chloride (98-107) mmol/L Carbon Dioxide (22-29) mmol/L Anion Gap (5-19) BUN (6-20) mg/dL Creatinine (0.7-1.2) mg/dL GFR Calculation (90-130) mL/min Glucose (65-115) mg/dL POC Glucose (70-110) mg/dL Calculated Osmolal ity (285-295) mOsm/k g Calcium (8.5-10.5) mg/dL Total Bilirubin (0.15-1.2) mg/dL AST (0-40) U/L ALT (0-41) U/L Alkaline Phosphata se (40-130) IU/L Total Protein (6.6-8.7) g/dL Albumin (3.5-5.2) g/dL Globulin (1.3-4.6) g/dL Salicylates (3-10) mg/dL Urine Opiates Scre en Negative (Negative) ng/mL Acetaminophen (10-30) ug/mL Ur Barbiturates Sc reen Negative (Negative) ng/mL Ur Phencyclidine S crn Negative (Negative) ng/mL Ur Amphetamines Sc reen Negative (Negative) ng/mL U Benzodiazepines Scrn Negative (Negative) ng/mL Urine Cocaine Scre en Negative (Negative) ng/mL U Marijuana (THC) Screen Negative (Negative) ng/mL Ethyl Alcohol (0-10) mg/dL Discharge Plan Discharge Patient Disposition: Home Clinical Impression: Autistic disorder, Suicidal ideation Condition: Stable Prescriptions: No Action omeprazole 20 mg capsule,delayed release(DR/EC) 40 mg PO DAILY@2200 Qty: 60 RF: 2 prenat.vits,carson,[id number] Tablet 1 tab PO DAILY@2200 RF: 0 medroxyprogesterone 150 mg/mL suspension 150 mg IM Q30D MDD see pharmacy comment RF: 0 acetaminophen [Tylenol Extra Strength] 500 mg tablet 500 mg PO TID MDD SEE PHARMACY COMMENT PRN (Reason: pain) RF: 0 ibuprofen [Motrin IB] 200 mg capsule 600 mg PO Q6H PRN (Reason: muscle pain) RF: 0 prazosin 1 mg capsule 1 mg PO DAILY PRN (Reason: nightmares) Qty: 30 RF: 2 loratadine 10 mg Capsule 10 mg PO DAILY PRN (Reason: Allergic Symptoms) RF: 0 SF 5000 Plus 1.1 % Cream 1 applic DENTAL DAILY RF: 0 bupropion HCl 150 mg Tablet Extended Release 24 Hr 150 mg PO DAILY 30 Days Qty: 30 RF: 0 trazodone 50 mg Tablet 50 mg PO BEDTIME 30 Days Qty: 30 RF: 0 ziprasidone HCl 40 mg Capsule 40 mg PO BEDTIME 30 Days Qty: 30 RF: 0 hydroxyzine HCl 50 mg tablet 50 mg PO BEDTIME PRN (Reason: sleep) RF: 0 naphazoline 0.012 % Drops 1 drp OPHTHALMIC (EYE) DAILY PRN (Reason: Dry Eyes) RF: 0 Discharge Orders: Discharge ED (Routine); Ordered 10/10/20 Ordered By: Lucas Mccoy Referrals: Kenneth Bravo, [Primary Care Provider] - Discharge Diet: Usual diet Discharge Activity: Resume usual activity Patient Instructions: Autism (ED), Suicide Prevention for Adults (ED) Activity Restrictions/Additional Instructions: Thank you for visiting the emergency department. You were seen and evaluated for behavioral concerns. This is a chronic issue and we appreciate the challenges however there is not an indication to hospitalize you at this time. Please continue to take your medications as prescribed. Please follow-up with your primary care provider. Please follow-up with your psychiatric care provider. Please return to the emergency department for anything that you are concerned about and feel needs emergency department evaluation. Coding Level of Care Code ED Bone Char Puller for Alva Che
[2020-10-10 19:16] VITALS: BP 140/100; PULSE 99; RESP 18; TEMP 35.8; O2SAT 96; BMI 28.9
[2020-10-10 19:28] LABS: Glucose Point of Care 95 mg/dL (70-110)
[2020-10-10 20:00] LABS: Basophils # 0.1 10^3/uL (0.0-0.1); Basophils % 0.6 %; Eosinophils # 0.1 10^3/uL (0.0-0.8); Eosinophils % 1.5 %; Hematocrit 42.4 % (42.0-52.0); Hemoglobin 14.6 g/dL (11.7-16.6); Lymphocytes # 2.4 10^3/uL (0.8-4.8); Lymphocytes % 29.6 %; Mean Corpuscular HGB Conc 34.4 g/dL (30.0-36.0); Mean Corpuscular Hemoglobin 30.5 pg (28.0-34.0); Mean Corpuscular Volume 88.7 fl (80-94); Monocytes # 0.6 10^3/uL (0.2-0.9); Monocytes % 7.6 %; Neutrophils # 4.83 10^3/uL (1.8-7.7); Neutrophils % 60.4 %; Nucleated Red Blood Cells % 0 %; Platelet Count 174 10^3/cmm (130-400); Red Blood Count 4.78 10^6/uL (4.1-5.3); Red Cell Distribution Width 11.7 % (12.1-15.1)
[2020-10-10 20:18] LABS: Amphetamines Screen Urine Negative (Negative); Barbiturates Screen Urine Negative (Negative); Benzodiazepines Screen Urine Negative (Negative); Cocaine Screen Urine Negative (Negative); Opiate Screen Urine Negative (Negative); PCP Screen Urine Negative (Negative); THC Screen Urine Negative (Negative)
[2020-10-10 20:24] LABS: Alanine Aminotransferase 52 U/L (0-41); Albumin Level 3.9 g/dL (3.5-5.2); Alkaline Phosphatase 84 IU/L (40-130); Anion Gap 14.8 (5-19); Aspartate Amino Transferase 24 U/L (0-40); Blood Urea Nitrogen 13 mg/dL (6-20); Calcium 8.8 mg/dL (8.5-10.5); Carbon Dioxide 21 mmol/L (22-29); Chloride 109 mmol/L (98-107); Glomerular Filtration Rate 136.3 mL/min (90-130); Glucose 89 mg/dL (65-115); Osmolality Calculated 292 mOsm/kg (285-295); Potassium 3.8 mmol/L (3.5-5.1); Sodium 141 mmol/L (136-145); Total Bilirubin 0.4 mg/dL (0.15-1.2); Total Protein 6.9 g/dL (6.6-8.7)
[2020-10-10 20:26] LABS: Acetaminophen < 5.0 ug/mL (10-30); Alcohol Level < 10 mg/dL (0-10); Salicylate < 0.3 mg/dL (3-10)
== END 2020-10-10 22:39 | disposition home or self-care (01) ==
PROVIDERS: Emergency Medicine; Emergency Provider Emergency Medicine; PCP Internal Medicine
DX: R45.851 Suicidal ideations (principal); F84.0 Autistic disorder
CPT/HCPCS: 36416; 80053; 80306; 80307; 82962; 85025; 99283; Q3014

== ENCOUNTER → 2020-10-21 07:21 | Outpatient (BNVA) | payer MEDICAID, SELFPAY | PROVIDERS: PCP Internal Medicine; Visit Provider Nurse Practitioner | DX: F33.1 Major depressive disorder, recurrent, moderate (principal); F34.81 Disruptive mood dysregulation disorder; F84.0 Autistic disorder | CPT/HCPCS: 99214 ==

== ENCOUNTER 2020-11-09 07:51 | Emergency (ER) | payer MEDICAID, SELFPAY ==
[2020-11-09 08:11] VITALS: BP 146/86; PULSE 102; RESP 19; TEMP 36.9; O2SAT 95; BMI 29.0
--- NOTE | 2020-11-09 08:18 | ED_ITS ---
HPI - Nausea/Vomiting/Diarrhea General: Chief complaint: Nausea/Vomiting/Diarrhea Stated complaint: n/v Time Seen by Provider: 11/09/20 07:53 History of Present Illness: HPI Narrative: Patient is a 25-year-old male comes to the ED with emesis after overeating. Patient was brought in here with his toll transmission worker present. Patient says he has been having this now on and off for the past couple weeks. He will eat and his body just does not tell him that he is full and he keeps eating. Eventually when he eats too much he says he gets an upset stomach and vomits. He denies trying to vomit or forcing himself to vomit. He describes his vomiting episodes as if his body does not know that he is full and does not need to eat anymore but he just keeps wanting to eat. He saw his PCP approximately a week ago and they did some lab work and they were all normal. He was then taken off of his vitamin to see if that would help his vomiting and it has not. he does not feel nauseous at all or have any abdominal pain before during or after these episodes. Denies any fever, chills, bladder or bowel symptoms. MD elicited complaint: vomiting Associated nausea: No Associated symtoms: Denies change in vision, chest pain, dysuria, fatigue, headache(s), nausea or palpitations Review of Systems Const: Denies: fever(s), chills or fatigue Eyes: Denies: change in vision or eye discomfort ENMT: Denies: throat pain, odynophagia, nasal discharge or nasal congestion Card: Denies: chest pain, palpitations, edema, swelling of feet/ankles, dyspnea on exertion or orthopnea Resp: Denies: dyspnea, productive cough or non-productive cough GI: Reports: vomiting (Episodes of vomiting after over eating.); Denies: abdominal pain, nausea, diarrhea, constipation or hematochezia : Denies: flank pain, difficulty urinating, dysuria or hematuria Musc: Denies: neck pain, back pain or extremity swelling Skin/Breast: Denies: rash or new lesions Neuro: Denies: headache(s), numbness in extremities or weakness in extremities PFS ED PFSH: Medical History Autistic disorder Disruptive mood dysregulation disorder Major depressive disorder, recurrent, moderate Psychiatric care Social History Smoking and tobacco status: never smoked Physical Exam Const: COMMON NORMALS: no acute distress, patient oriented x3 and alert GENERAL APPEARANCE: cooperative and comfortable NUTRITIONAL APPEARANCE: overweight HENMT: COMMON NORMALS: normocephalic HEAD & SCALP: normocephalic MOUTH: Normal oral and palatal mucosa present THROAT: posterior oropharynx normal and uvula midline Neck/C-Spine: COMMON NORMALS: supple GENERAL: Yes normal visual inspection Resp: COMMON NORMALS: normal respiratory effort, No retractions, No use of accessory muscles and clear to auscultation bilaterally AUSCULTATION: clear to auscultation bilaterally Cardio: COMMON NORMALS: regular rate, regular rhythm, S1 normal heart sound present, S2 normal heart sound present, No gallops present (Cardio), No clicks present (Cardio), No murmurs present (Cardio) and Peripheral pulses 2+ throughout RATE: regular rate RHYTHM: regular rhythm HEART SOUNDS: S1 normal heart sound present and S2 normal heart sound present PERIPHERAL PULSES: Peripheral pulses 2+ throughout GI: COMMON NORMALS: Normal to inspection, nondistended, normoactive bowel sounds present, Soft to palpation, non-tender and no masses PALPATION: Yes Soft to palpation : COMMON NORMALS: Yes no CVA tenderness BLADDER/KIDNEY EXAM: Yes no CVA tenderness Back/Pelvis: COMMON NORMALS: no CVA tenderness Neuro: COMMON NORMALS: patient oriented x3, moves all extremities and no focal motor deficits SENSORIUM/ORIENTATION: Yes alert Skin: GENERAL SKIN EXAM: dry skin Course Vital Signs: Vital signs: Vital Signs Temperature 98.4 F 11/09/20 08:11 Pulse Rate 102 H 11/09/20 08:11 Respiratory Rate 19 H 11/09/20 08:11 Blood Pressure 146/86 11/09/20 08:11 Pulse Oximetry 95 11/09/20 08:11 MDM - Nausea/Vomiting/Diarrhea MDM Narrative: Medical decision making narrative: Patient is a 25-year-old male who comes to the ED with episodes of vomiting. Patient describes having episodes of over eating. He then vomits afterwards. He denies any nausea, abdominal pain, forcing himself to vomit after eating. During these episodes, he describes feeling like his body keeps telling him he is hungry so he keeps eating and then he feels sick to his stomach for overeating and vomits. Patient's vitals are stable and his exam is benign. I discussed with patient that likely most of these vomiting episodes are psychogenic in nature and he agreed. He says he does not try to force himself to vomit but just constantly feels like he is hungry. I told patient we could draw some labs today and he refused. I also told him I could send him home with some antinausea medication, but he said he does not need that medication because he does not feel nauseous. Patient signed an AMA form and then he was discharged home. Told to follow-up with his PCP in 7 to 10 days for reevaluation. Return to ED precautions given. Patient and patient's toll transmission worker understood and agreed with plan. Discharge Plan Discharge Patient Disposition: Home Clinical Impression: Eating, excessive indulgence Vomiting Qualifiers: Vomiting type: psychogenic vomiting Nausea presence: without nausea Qualified Code(s): F50.89 - Other specified eating disorder Condition: Stable Prescriptions: No Action omeprazole 20 mg capsule,delayed release(DR/EC) 40 mg PO DAILY@2200 Qty: 60 RF: 2 prenat.vits,carson,[id number] Tablet 1 tab PO DAILY@2200 RF: 0 medroxyprogesterone 150 mg/mL suspension 150 mg IM Q30D MDD see pharmacy comment RF: 0 acetaminophen [Tylenol Extra Strength] 500 mg tablet 500 mg PO TID MDD SEE PHARMACY COMMENT PRN (Reason: pain) RF: 0 ibuprofen [Motrin IB] 200 mg capsule 600 mg PO Q6H PRN (Reason: muscle pain) RF: 0 prazosin 1 mg capsule 1 mg PO DAILY PRN (Reason: nightmares) Qty: 30 RF: 2 bupropion HCl 150 mg tablet extended release 24 hr 150 mg PO DAILY 30 Days Qty: 30 RF: 2 loratadine 10 mg Capsule 10 mg PO DAILY PRN (Reason: Allergic Symptoms) RF: 0 SF 5000 Plus 1.1 % Cream 1 applic DENTAL DAILY RF: 0 hydroxyzine HCl 50 mg tablet 50 mg PO BEDTIME PRN (Reason: sleep) RF: 0 naphazoline 0.012 % Drops 1 drp OPHTHALMIC (EYE) DAILY PRN (Reason: Dry Eyes) RF: 0 Discharge Orders: Discharge ED (Routine); Ordered 11/09/20 Ordered By: Harlan Davidson Referrals: Kenneth Bravo DO [Primary Care Provider] - Discharge Diet: Regular Discharge Activity: Resume usual activity Patient Instructions: Vomiting - Adult Activity Restrictions/Additional Instructions: Follow-up with medical provider as directed in 7 to 10 days for reevaluation. Continue taking all home medications as previously prescribed. Return to the ER or your medical provider if condition worsens. Please read and understand discharge instructions. Thank you for choosing [facility] for your healthcare needs today. Please realize this is an emergency room and that we are providing you with a medical screening exam and this may not be complete and all inclusive of all the testing and or work up that you may need to determine your ailment or severity of your illness. It is very important that you follow up as instructed or that you return to the Emergency Department should you have concerns or if your condition changes or worsens in any way. Coding Level of Care Code ED S[employer] Or Barges Loader for Alva Che
--- NOTE | 2020-11-09 08:18 | PC.NURSE ---
Refused any and all blood work /urine.
[2020-11-09 08:26] VITALS: BP 146/86; PULSE 103; RESP 16; TEMP 37.1; O2SAT 97
== END 2020-11-09 08:26 | disposition home or self-care (01) ==
PROVIDERS: Emergency Provider Physician Assistant; PCP Internal Medicine
DX: F50.89 Other specified eating disorder (principal); R63.2 Polyphagia; F84.0 Autistic disorder
CPT/HCPCS: 99281

== ENCOUNTER 2020-11-15 20:30 | Inpatient (IN) | payer MEDICAID, SELFPAY ==
[2020-11-15 20:32] VITALS: BP 137/98; PULSE 108; RESP 18; TEMP 37; O2SAT 97; BMI 39.1
--- NOTE | 2020-11-15 20:49 | ED_ITS ---
HPI - General Adult General: Chief complaint: Psychiatric Symptoms Stated complaint: si Time Seen by Provider: 11/15/20 20:30 History of Present Illness: HPI narrative: HPI: [25]yo patient w/ hx of depression BIBA for acute suicidal ideation. Patient was medically stabilized last month and since his discharge, he has endorsed thoughts of killing himeslf. Patient has plan to end his life with a knife. On arrival, the patient is AAOx3 and cooperative with my evaluation. No focal complaints of chest pain, shortness of breath, palpitations, N/V, focal GI/ complaints. []Currently denies SI/HI. No complaints of hallucinations. Onset: chronic Duration: ongoing Location: home Severity: severe Review of Systems Narrative: Constitutional: No fever, no chills. HEENT: No vision changes CV: No chest pain, no palpitations PULM: No productive cough, no dyspnea. GI: No abdominal pain, no N/V/D. : No dysuria MSKEL: No muscle pain SKIN: No new rashes, no lesions. NEURO: No headache, no focal weakness. HEME: No visible bruises PSYCH: Normal mood, +SI PFSH ED PFSH: Medical History Autistic disorder Disruptive mood dysregulation disorder Major depressive disorder, recurrent, moderate Psychiatric care Social History Smoking and tobacco status: never smoked Physical Exam Narrative: EXAM NARRATIVE: Head: Atraumatic Eyes: PERRL, conjunctiva without injection, eyes tracking ENT: Mucous membrane moist NECK: Supple without lymphadenopathy LUNGS: LCTAB CV: RRR ABDOMEN: Soft, nontender EXTREMITY: Normal ROM SKIN: No rash or erythema NEURO: Awake and alert. No focal weakness PSYCH: Cooperative mood and affect. Course Vital Signs: Vital signs: Vital Signs Temperature 98.6 F 11/15/20 20:32 Pulse Rate 108 H 11/15/20 20:32 Respiratory Rate 18 11/15/20 20:32 Blood Pressure 137/98 11/15/20 20:32 Pulse Oximetry 97 11/15/20 20:32 MDM - General Adult MDM Narrative: Medical decision making narrative: [25]yo patient w/ hx of depression presenting for depression/SI. HDS, exam within normal limit Thoughts are linear and organized, and the patient has no AH/VH, or HI. Clinically the patient displays no overt toxidrome; they are well appearing, with low suspicion for toxic ingestion given history and exam. Symptoms unlikely 2/2 anemia, hypothyroidism, infection, or ICH. Workup: CBC, CMP, Lipase, salicylate/tylenol, urine drug screen Lab findings: wnl [9:45pm] On reassessment, labs and workup wnl. Patient is hemodynamically stable with no acute medical complaints. Case discussed with psychiatric provider Dr. Howell at [facility] psych inpatient with recommendation for admission Disposition: Psych Lab Data: Labs: Lab Results 11/15/20 11/15/20 20:58 20:58 WBC 10.0 10^3/uL 10^3 /uL (4.0-10.0) RBC 5.08 10^6/uL 10^6 /uL (4.1-5.3) Hgb 15.5 g/dL g/dL (11.7-16.6) Hct 47.2 % % (42.0-52.0) MCV 92.9 fl fl (80-94) MCH 30.5 pg pg (28.0-34.0) MCHC 32.8 g/dL g/dL (30.0-36.0) RDW 11.7 % L % (12.1-15.1) Plt Count 180 10^3/cmm 10^3 /cmm (130-400) MPV 10.5 fL H fL (7.4-10.4) Neut % (Auto) 61.3 % % Lymph % (Auto) 26.6 % % Carter % (Auto) 8.8 % % Eos % (Auto) 2.2 % % Baso % (Auto) 0.6 % % Neut # (Auto) 6.14 10^3/uL 10^3 /uL (1.8-7.7) Lymph # (Auto) 2.7 10^3/uL 10^3/ uL (0.8-4.8) Carter # (Auto) 0.9 10^3/uL 10^3/ uL (0.2-0.9) Eos # (Auto) 0.2 10^3/uL 10^3/ uL (0.0-0.8) Baso # (Auto) 0.1 10^3/uL 10^3/ uL (0.0-0.1) Nucleated RBC % (a uto) 0 % % Nucleated RBCs # 0.0 /100WBC /100W BC Sodium 138 mmol/L mmol/L (136-145) Potassium 3.8 mmol/L mmol/L (3.5-5.1) Chloride 104 mmol/L mmol/L (98-107) Carbon Dioxide 23 mmol/L mmol/L (22-29) Anion Gap 14.8 (5-19) BUN 11 mg/dL mg/dL (6-20) Creatinine 0.6 mg/dL L mg/dL (0.7-1.2) GFR Calculation 162.9 mL/min H mL /min (90-130) Glucose 96 mg/dL mg/dL (65-115) Calculated Osmolal ity 285 mOsm/kg mOsm/ kg (285-295) Calcium 9.3 mg/dL mg/dL (8.5-10.5) Total Bilirubin 0.3 mg/dL mg/dL (0.15-1.2) AST 16 U/L U/L (0-40) ALT 40 U/L U/L (0-41) Alkaline Phosphata se 114 IU/L IU/L (40-130) Total Protein 7.0 g/dL g/dL (6.6-8.7) Albumin 3.8 g/dL g/dL (3.5-5.2) Globulin 3.2 g/dL g/dL (1.3-4.6) Lipase 34 U/L U/L (13-60) Salicylates < 0.3 mg/dL L mg/ dL (3-10) Acetaminophen < 5.0 ug/mL L ug/ mL (10-30) Discharge Plan Discharge Patient Disposition: Admitted As Inpatient Clinical Impression: Suicidal ideations Condition: Stable Coding Level of Care Code ED Oracle Database Architect for Alva Che
[2020-11-15 21:01] LABS: Basophils # 0.1 10^3/uL (0.0-0.1); Basophils % 0.6 %; Eosinophils # 0.2 10^3/uL (0.0-0.8); Eosinophils % 2.2 %; Hematocrit 47.2 % (42.0-52.0); Hemoglobin 15.5 g/dL (11.7-16.6); Lymphocytes # 2.7 10^3/uL (0.8-4.8); Lymphocytes % 26.6 %; Mean Corpuscular HGB Conc 32.8 g/dL (30.0-36.0); Mean Corpuscular Hemoglobin 30.5 pg (28.0-34.0); Mean Corpuscular Volume 92.9 fl (80-94); Mean Platelet Volume 10.5 fL (7.4-10.4); Monocytes # 0.9 10^3/uL (0.2-0.9); Monocytes % 8.8 %; Neutrophils # 6.14 10^3/uL (1.8-7.7); Neutrophils % 61.3 %; Nucleated Red Blood Cells % 0 %; Platelet Count 180 10^3/cmm (130-400); Red Blood Count 5.08 10^6/uL (4.1-5.3); Red Cell Distribution Width 11.7 % (12.1-15.1)
[2020-11-15 21:41] LABS: Alanine Aminotransferase 40 U/L (0-41); Albumin Level 3.8 g/dL (3.5-5.2); Alkaline Phosphatase 114 IU/L (40-130); Anion Gap 14.8 (5-19); Aspartate Amino Transferase 16 U/L (0-40); Blood Urea Nitrogen 11 mg/dL (6-20); Calcium 9.3 mg/dL (8.5-10.5); Carbon Dioxide 23 mmol/L (22-29); Chloride 104 mmol/L (98-107); Globulin 3.2 g/dL (1.3-4.6); Glomerular Filtration Rate 162.9 mL/min (90-130); Glucose 96 mg/dL (65-115); Lipase 34 U/L (13-60); Osmolality Calculated 285 mOsm/kg (285-295); Potassium 3.8 mmol/L (3.5-5.1); Sodium 138 mmol/L (136-145); Total Bilirubin 0.3 mg/dL (0.15-1.2)
[2020-11-15 21:42] LABS: Acetaminophen < 5.0 ug/mL (10-30); Salicylate < 0.3 mg/dL (3-10)
[2020-11-15 21:54] LABS: Amphetamines Screen Urine Negative (Negative); Barbiturates Screen Urine Negative (Negative); Benzodiazepines Screen Urine Negative (Negative); Cocaine Screen Urine Negative (Negative); Opiate Screen Urine Negative (Negative); PCP Screen Urine Negative (Negative); THC Screen Urine Negative (Negative)
[2020-11-15 22:03] LABS: Alcohol Level < 10 mg/dL (0-10)
[2020-11-15 22:06] VITALS: BP 128/70; PULSE 74; RESP 18; O2SAT 96
[2020-11-15 22:57] LABS: SARS Covid-2 Antigen Negative (Negative)
[2020-11-16 03:00] VITALS: BP 116/68; PULSE 70; RESP 16; O2SAT 97
[2020-11-16 05:00] VITALS: BP 116/70; PULSE 72; RESP 16; O2SAT 98
[2020-11-16] MEDS: LORazepam 2 mg Tablet PO (08:42)
[2020-11-16 09:00] VITALS: BP 130/86; PULSE 110; RESP 18; O2SAT 95
[2020-11-16 11:40] VITALS: BP 130/86; PULSE 90; RESP 18; O2SAT 95
[2020-11-16 14:00] VITALS: BP 124/71; PULSE 107; RESP 16; TEMP 37; O2SAT 98
[2020-11-16] MEDS: buPROPion XL (24 HR) 150 mg Tablet PO (14:14)
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
[2020-11-16] MEDS: prazosin 1 mg Capsule PO (20:27)
[2020-11-16] MEDS: trazodone 50 mg Tablet PO (20:27)
[2020-11-16 20:52] VITALS: BP 119/73; PULSE 114; RESP 18; TEMP 36.5; O2SAT 97
[2020-11-16] MEDS: pantoprazole DR 40 mg Tablet PO (21:02)
--- NOTE | 2020-11-17 02:55 | PC.NURSE ---
PRN trazadone given for insomnia. Patient tolerated well. Will continue to monitor.
[2020-11-17 06:00] VITALS: BP 119/73; PULSE 114; RESP 18; TEMP 36.5; O2SAT 97
--- NOTE | 2020-11-17 08:47 | PM.NPN ---
Subjective NPU Subjective: Interval history: Patient presents today reporting that he came in because he was not having much sudha for most hours in his day. We discussed needing to think broadly about what is necessary given this being his third hospitalization in the last few months. We discussed the risk benefits and alternatives of increasing his Wellbutrin XL and he understood agreed proceed as documented in this note. Mental Status Exam MSE Comments: This is a tall, overweight, white male, in [facility] scrubs with adequate grooming, and improving eye contact. No abnormal movements except for mild psychomotor agitation. Cooperative with exam in no acute distress. Speech had normal rate and volume, with decreased prosody. Mood described as depressed, affect congruent. Thought process organized, thought content: patient denied suicidal or homicidal ideation, there were no delusions reported or noted, he denied any auditory or visual hallucinations. Attention and concentration were intact, and memory appeared unreliable, but none were formally tested. He is alert and oriented to person and situation at least. Insight and judgment are limited. Impulse control is impaired. Vitals/I&O/Wt Last Vital Signs Temp 97.7 F 11/17/20 06:00 Pulse 114 H 11/17/20 06:00 Resp 18 11/17/20 06:00 BP 119/73 11/17/20 06:00 Pulse Ox 97 11/17/20 06:00 Weight last 48 hrs Weight 138.346 kg Weight 138.346 kg Data NPU : 11/15/20 20:58 11/15/20 20:58 A&P Assessment and plan (1) Suicidal ideations: Status: Acute (2) Major depressive disorder, recurrent, moderate: Status: Acute (3) Hypertrophic granulation tissue: Status: Acute (4) Painful orthopaedic hardware: Status: Acute (5) Disruptive mood dysregulation disorder: Status: Acute (6) Autistic disorder: Status: Acute Additional A&P Information This is a 25-year-old, white male, with autism, major depressive disorder, recurrent, disruptive mood dysregulation disorder, and fetishism, who presents for the third time in 6 weeks having difficulty managing his moods. RECOMMENDATION AND PLAN: 1. Continue current medication. Except increase Wellbutrin XL to 300 mg p.o. every morning. 2. Continue every 15 minute checks for safety. 3. Encourage individual, group and milieu therapies. 4. We will work with his residents to see if he can determine what has changed recently that is led to his proclivity to wanting to be in the hospital again. Involuntary Hold Information 96 Hour Hold: 96 Hour Involuntary Admission: No Attestations NPU Medical Necessity Statement*: Inpatient hospitalization is medically necessary and the clinically appropriate intervention at this time. We will monitor medications and make changes as indicated. Likely length of stay 2-4 days. Coding Level of Care Code Acute Inner Diameter Grinder Tool for g Fwd Diagnoses Suicidal ideations R45.851 Major depressive disorder, recurrent, moderate F33.1 Hypertrophic granulation tissue L91.8 Painful orthopaedic hardware T84.84XA Disruptive mood dysregulation disorder F34.81 Autistic disorder F84.0
[2020-11-17] MEDS: buPROPion XL (24 HR) 150 mg Tablet PO ×2 (09:25→12:29)
[2020-11-17 14:00] VITALS: BP 134/68; PULSE 104; RESP 17; TEMP 36.6; O2SAT 93
--- NOTE | 2020-11-17 17:31 | PC.NURSE ---
Pt extremely anxious. Pacing halls. Informed staff that two patients were saying inappropriate things and now he feels uncomfortable and nervous. SCRATCH BRUSHER went and sat with him. Vistaril offered. Pt declined. Requested milk instead. Believes milk will calm him down. Pt given milk per request.
[2020-11-17] MEDS: hyDROXYzine 25 mg Capsule 50 MG PO (18:35)
[2020-11-17 20:19] VITALS: BP 114/88; PULSE 140; RESP 22; TEMP 36.7; O2SAT 96
[2020-11-17] MEDS: prazosin 1 mg Capsule PO (21:42)
[2020-11-17] MEDS: pantoprazole DR 40 mg Tablet PO (21:42)
--- NOTE | 2020-11-18 04:58 | PC.NURSE ---
PM assessment pt is agitated, upset by fellow pt. reports inappropriate conversation and touching in dayroom between pt. RN acted on this information, pt settled down. No further agitation noted.
[2020-11-18 06:00] VITALS: BP 123/77; PULSE 117; RESP 19; TEMP 36.8; O2SAT 96
[2020-11-18] MEDS: buPROPion XL (24 HR) 300 mg Tablet PO (08:50)
[2020-11-18 13:55] VITALS: BP 126/80; PULSE 99; RESP 17; TEMP 36.3; O2SAT 95
--- NOTE | 2020-11-18 14:08 | NPU.GN ---
[facility] Unit Group Topic:Depression BINGO General Mood of Group: General mood was talkative. Seemed like most everyone in the group was talkative. This group was exceptionable large. They seemed to all want to speak at the same time. This patient came to group on time and dressed appropriate with good hygiene. This patient did participate and did ask questions. He did seem a little less talkative in group then his normal.
--- NOTE | 2020-11-18 16:03 | PM.NPN ---
Subjective NPU Subjective: Interval history: Josh presents today reporting that he is feeling better and feeling optimistic that he can have success at home. He reports he feels the medication is working and that he is pleased with the change. We discussed with benefits and alternatives of discharging tomorrow morning and he understood and agreed proceed as documented in his note. Additionally we discussed importance of home addressing his low frustration tolerance and identifying that there may be moments with nothing well and sometimes have to push through that versus coming to the hospital. Mental Status Exam MSE Comments: This is a tall, overweight, white male, in [facility] scrubs with adequate grooming, and improving eye contact. No abnormal movements. Cooperative with exam in no acute distress. Speech had normal rate and volume, with decreased prosody. Mood described as better, affect congruent. Thought process organized, thought content: patient denied suicidal or homicidal ideation, there were no delusions reported or noted, he denied any auditory or visual hallucinations. Attention and concentration were intact, and memory appeared unreliable, but none were formally tested. He is alert and oriented to person and situation at least. Insight and judgment are limited. Impulse control is limited. Vitals/I&O/Wt Last Vital Signs Temp 97.4 F L 11/18/20 13:55 Pulse 99 11/18/20 13:55 Resp 17 11/18/20 13:55 BP 126/80 11/18/20 13:55 Pulse Ox 95 11/18/20 13:55 Weight last 48 hrs Weight 138.346 kg Data NPU : 11/15/20 20:58 11/15/20 20:58 A&P Additional A&P Information (1) Suicidal ideations: (2) Major depressive disorder, recurrent, moderate: (3) Hypertrophic granulation tissue: (4) Painful orthopaedic hardware: (5) Disruptive mood dysregulation disorder: (6) Autistic disorder: Additional A&P Information This is a 25-year-old, white male, with autism, major depressive disorder, recurrent, disruptive mood dysregulation disorder, and fetishism, who presents for the third time in 6 weeks having difficulty managing his moods. RECOMMENDATION AND PLAN: 1. Continue current medication. 2. Continue every 15 minute checks for safety. 3. Encourage individual, group and milieu therapies. 4. We will work with his residents to see if he can determine what has changed recently that is led to his proclivity to wanting to be in the hospital again. 5. Plan for discharge in the morning. Involuntary Hold Information 96 Hour Hold: 96 Hour Involuntary Admission: No Attestations NPU Medical Necessity Statement*: Inpatient hospitalization is medically necessary and the clinically appropriate intervention at this time. We will monitor medications and make changes as indicated. Likely length of stay 1-3 days. Coding Level of Care Code Acute Camp Head Counselor for Avla Che
[2020-11-18] MEDS: trazodone 50 mg Tablet PO (21:11)
[2020-11-18] MEDS: prazosin 1 mg Capsule PO (21:11)
[2020-11-18] MEDS: pantoprazole DR 40 mg Tablet PO (21:11)
[2020-11-18] MEDS: hyDROXYzine 25 mg Capsule 50 MG PO (21:12)
--- NOTE | 2020-11-18 21:15 | PC.NURSE ---
pt requesting more snack, sleep and anxiety meds. 3 banana muffins, milk, trazodone 50mg po for sleep and vistaril 50mg po for anxiety given.
[2020-11-18 22:00] VITALS: BP 126/82; PULSE 114; RESP 20; TEMP 36.7; O2SAT 96
--- NOTE | 2020-11-18 22:30 | PC.NURSE ---
pt resting quietly with both eyes closed
[2020-11-19 06:00] VITALS: BP 115/70; PULSE 52; RESP 22; TEMP 36.7; O2SAT 100
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
[2020-11-19 08:39] VITALS: BP 126/84; PULSE 88; RESP 16; TEMP 36.3; O2SAT 98
[2020-11-19] MEDS: buPROPion XL (24 HR) 300 mg Tablet PO (08:43)
--- NOTE | 2020-11-19 10:42 | NPU.GN ---
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
== END 2020-11-19 13:30 | disposition home or self-care (01) | DRG 885 ==
LOC: ER 11-16 06:27 → NP 11-16 18:52
PROVIDERS: Emergency Medicine; Admitting Provider Psychiatry & Neurology Psychiatry; Emergency Provider Family Medicine; PCP Internal Medicine; Visit Provider Psychiatry & Neurology Psychiatry
DX: F33.1 Major depressive disorder, recurrent, moderate (principal); R45.851 Suicidal ideations; F84.0 Autistic disorder; F34.81 Disruptive mood dysregulation disorder
CPT/HCPCS: 80053; 80306; 80307; 83690; 85025; 87426; 97150; 97165; 99285

== ENCOUNTER 2020-11-20 15:25 | Emergency (ER) | payer MEDICAID, SELFPAY ==
[2020-11-20 15:40] VITALS: BP 132/89; PULSE 105; RESP 16; O2SAT 96; BMI 29.0
--- NOTE | 2020-11-20 15:58 | W.ED.PSYCH ---
HPI - Psych General: Chief Complaint: Psychiatric Symptoms Stated Complaint: LOWER ABD PAINS Time Seen by Provider: 11/20/20 15:41 PFSH ED PFSH: Medical History Autistic disorder Disruptive mood dysregulation disorder Major depressive disorder, recurrent, moderate Psychiatric care Social History Smoking and tobacco status: never smoked Course Vital Signs: Vital signs: Vital Signs Pulse Rate 105 H 11/20/20 15:40 Respiratory Rate 16 11/20/20 15:40 Blood Pressure 132/89 11/20/20 15:40 Pulse Oximetry 96 11/20/20 15:40 Discharge Plan Discharge Prescriptions: No Action omeprazole 20 mg capsule,delayed release(DR/EC) 40 mg PO DAILY@2200 Qty: 60 RF: 2 prenat.vits,carson,[id number] Tablet 1 tab PO DAILY@2200 RF: 0 medroxyprogesterone 150 mg/mL suspension 150 mg IM Q30D RF: 0 acetaminophen [Tylenol Extra Strength] 500 mg tablet 500 mg PO TID PRN (Reason: pain) RF: 0 ibuprofen [Motrin IB] 200 mg capsule 600 mg PO Q6H PRN (Reason: muscle pain) RF: 0 prazosin 1 mg capsule 1 mg PO DAILY PRN (Reason: nightmares) Qty: 30 RF: 2 loratadine 10 mg Capsule 10 mg PO DAILY PRN (Reason: Allergic Symptoms) RF: 0 fluoride (sodium) [SF 5000 Plus] 1.1 % Cream 1 applic DENTAL DAILY RF: 0 hydroxyzine HCl 50 mg tablet 50 mg PO BEDTIME PRN (Reason: sleep) RF: 0 naphazoline 0.012 % Drops 1 drp OPHTHALMIC (EYE) DAILY PRN (Reason: Dry Eyes) RF: 0 Wellbutrin XL 300 mg tablet extended release 24 hr 300 mg PO QAM 30 Days Qty: 30 RF: 1 Coding Level of Care Code ED Customer Services 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
--- NOTE | 2020-11-20 16:02 | ED_ITS ---
HPI - Abdominal Pain General: Chief Complaint: Psychiatric Symptoms Stated Complaint: LOWER ABD PAINS Time Seen by Provider: 11/20/20 15:41 Source: patient and other (caregiver) Mode of arrival: ambulatory Limitations: no limitations History of Present Illness: HPI narrative: Patient is a 25-year-old male who presents to ED today along with his caregiver from [facility] for complaints of abdominal pain. Patient tells me he has had chronic abdominal pain for several months/years. He has been told by his PCP Dr. Bravo that is psychosomatic. He describes the pain as extreme hunger and focused around his umbilical region. He does not describe any abnormal stools. He states sometimes he does get nauseous and vomits after eating. He tells me he has never taken any medications to try to treat this (he does have omeprazole on his current med list however). Patient apparently prior to coming to the ED became very upset and broke a window in his home and apparently made suicidal statements. He states he became upset because he knew we wouldn't do anything for his abdominal pain stating they never do anything, they tell me nothing is wrong, and to go home . MD elicited complaint: abdominal pain Pain Consistency: constant Location: Periumbilical Quality: other ( hunger like pain ) Exacerbating factors: eating Relieving factors: nothing Associated Symptoms: Reports nausea and vomiting; Denies change in bowel habits, change in stool character, chills, diarrhea, fever(s) and hematemesis Review of Systems Const: Denies: fever(s), chills, body aches, fatigue or malaise ENMT: Denies: throat pain or odynophagia Card: Denies: chest pain Resp: Denies: dyspnea GI: Reports: abdominal pain, nausea and vomiting; Denies: hematemesis, diarrhea, change in bowel habits or change in stool character Musc: Denies: back pain Skin/Breast: Denies: rash Neuro: Denies: headache(s) Psych: Denies: suicidal ideation or homicidal ideation [facility] ED PFSH: Medical History Autistic disorder Disruptive mood dysregulation disorder Major depressive disorder, recurrent, moderate Psychiatric care Social History Smoking and tobacco status: never smoked Physical Exam Const: COMMON NORMALS: no acute distress, patient oriented x3, no limitations and alert GENERAL APPEARANCE: cooperative NUTRITIONAL APPEARANCE: obese ORIENTATION/CONSCIOUSNESS: Yes awake, Yes oriented to person, Yes oriented to place and Yes oriented to time OTHER: cognitive delay HENMT: COMMON NORMALS: normocephalic and atraumatic HEAD & SCALP: normocephalic and atraumatic Resp: COMMON NORMALS: normal respiratory effort and clear to auscultation bilaterally AUSCULTATION: clear to auscultation bilaterally Cardio: COMMON NORMALS: regular rate and regular rhythm RATE: regular rate RHYTHM: regular rhythm GI: COMMON NORMALS: Normal to inspection, nondistended, normoactive bowel sounds present, Soft to palpation, non-tender, No hepatosplenomegaly present and no masses INSPECTION: Yes normal to inspection PALPATION: Yes Soft to palpation and Yes No hepatosplenomegaly present OTHER: Patient reports pain around his umbilical region however he does not appear in any discomfort with light or deep palpation. He is currently rating pain at a 7/10. Neuro: COMMON NORMALS: patient oriented x3 SENSORIUM/ORIENTATION: Yes alert, Yes oriented to person, Yes oriented to place and Yes oriented to time Psych: COMMON NORMALS: Normal thought process present, cooperative, normal affect, speech normal, activity/motor behavior normal, denies hallucinations, denies homicidal ideation and denies suicidal ideation APPEARANCE: Yes grossly normal ATTITUDE: Yes calm ACTIVITY/MOTOR BEHAVIOR: Yes appropriate eye contact SPEECH: Yes normal speech MOOD & AFFECT: Yes euthymic mood THOUGHT PROCESS: Normal thought process present THOUGHT CONTENT: Yes Normal thought content present ATTENTION/CONCENTRATION: Yes attention grossly intact and Yes concentration grossly intact MEMORY/COGNITION: Yes memory grossly intact INSIGHT: Fair insight present (Psych) JUDGEMENT: Fair judgement present (Psych) Course ED course: Patient apparently flagged positive on his suicidal screen in triage although currently he is adamantly denying SI/HI. He was just released from [facility] yesterday. Dr. Howell will come do a psychiatric assessment but plan will be for discharge. Consultations: Consultation #1: Dr. Howell-will come to ED shortly for evaluation Vital Signs: Vital signs: Vital Signs Pulse Rate 82 11/20/20 19:42 Respiratory Rate 18 11/20/20 19:42 Blood Pressure 142/76 11/20/20 19:42 Pulse Oximetry 98 11/20/20 19:42 MDM - Abdominal Pain MDM Narrative: Medical decision making narrative: CBC/CMP are normal here. Abdominal pain is chronic in nature and has been present for several months if not years. Recommend patient follow-up with his PCP regarding this. He did flag positive on suicide screening in triage therefore spoke to Dr. Howell who came down and evaluated patient and feels he is stable for discharge. Lab Data: Labs: Lab Results 11/20/20 11/20/20 11/20/20 16:02 16:02 16:02 WBC 8.9 10^3/uL 10^3/ uL (4.0-10.0) RBC 5.24 10^6/uL 10^6 /uL (4.1-5.3) Hgb 15.6 g/dL g/dL (11.7-16.6) Hct 46.1 % % (42.0-52.0) MCV 88.0 fl fl (80-94) MCH 29.8 pg pg (28.0-34.0) MCHC 33.8 g/dL g/dL (30.0-36.0) RDW 11.5 % L % (12.1-15.1) Plt Count 196 10^3/cmm 10^3 /cmm (130-400) MPV 10.3 fL fL (7.4-10.4) Neut % (Auto) 71.4 % % Lymph % (Auto) 18.1 % % [place] % (Auto) 8.1 % % Eos % (Auto) 1.2 % % Baso % (Auto) 0.7 % % Neut # (Auto) 6.32 10^3/uL 10^3 /uL (1.8-7.7) Lymph # (Auto) 1.6 10^3/uL 10^3/ uL (0.8-4.8) [place] # (Auto) 0.7 10^3/uL 10^3/ uL (0.2-0.9) Eos # (Auto) 0.1 10^3/uL 10^3/ uL (0.0-0.8) Baso # (Auto) 0.1 10^3/uL 10^3/ uL (0.0-0.1) Nucleated RBC % (a uto) 0 % % Nucleated RBCs # 0.0 /100WBC /100W BC Sodium 137 mmol/L mmol/L (136-145) Potassium 4.0 mmol/L mmol/L (3.5-5.1) Chloride 103 mmol/L mmol/L (98-107) Carbon Dioxide 22 mmol/L mmol/L (22-29) Anion Gap 16.0 (5-19) BUN 14 mg/dL mg/dL (6-20) Creatinine 0.8 mg/dL mg/dL (0.7-1.2) GFR Calculation 116.9 mL/min mL/m in (90-130) Glucose 85 mg/dL mg/dL (65-115) Calculated Osmolal ity 284 mOsm/kg L mOs m/kg (285-295) Calcium 9.3 mg/dL mg/dL (8.5-10.5) Total Bilirubin 0.4 mg/dL mg/dL (0.15-1.2) AST 19 U/L U/L (0-40) ALT 46 U/L H U/L (0-41) Alkaline Phosphata se 98 IU/L IU/L (40-130) Total Protein 7.5 g/dL g/dL (6.6-8.7) Albumin 4.1 g/dL g/dL (3.5-5.2) Globulin 3.4 g/dL g/dL (1.3-4.6) Urine Color Yellow (Yellow) Urine Appearance Clear (CLEAR) Urine pH 7 (5-7) Ur Specific Gravit y 1.010 (1.005-1.030) Urine Protein Neg (Negative) Urine Glucose (UA) Norm (Normal) Urine Ketones Negative (Negative) Urine Blood Neg (Negative) Urine Nitrate Negative (Negative) Urine Bilirubin Neg (Negative) Urine Urobilinogen Norm mg/dL mg/dL (Negative) Ur Leukocyte Michelle ase Negative (Negative) Discharge Plan Discharge Patient Disposition: Home Clinical Impression: Chronic abdominal pain Condition: Stable Prescriptions: No Action omeprazole 20 mg capsule,delayed release(DR/EC) 40 mg PO DAILY@2200 Qty: 60 RF: 2 prenat.vits,carson,[id number] Tablet 1 tab PO DAILY@2200 RF: 0 medroxyprogesterone 150 mg/mL suspension 150 mg IM Q30D RF: 0 acetaminophen [Tylenol Extra Strength] 500 mg tablet 500 mg PO TID PRN (Reason: pain) RF: 0 ibuprofen [Motrin IB] 200 mg capsule 600 mg PO Q6H PRN (Reason: muscle pain) RF: 0 prazosin 1 mg capsule 1 mg PO DAILY PRN (Reason: nightmares) Qty: 30 RF: 2 loratadine 10 mg Capsule 10 mg PO DAILY PRN (Reason: Allergic Symptoms) RF: 0 fluoride (sodium) [SF 5000 Plus] 1.1 % Cream 1 applic DENTAL DAILY RF: 0 hydroxyzine HCl 50 mg tablet 50 mg PO BEDTIME PRN (Reason: sleep) RF: 0 naphazoline 0.012 % Drops 1 drp OPHTHALMIC (EYE) DAILY PRN (Reason: Dry Eyes) RF: 0 Wellbutrin XL 300 mg tablet extended release 24 hr 300 mg PO QAM 30 Days Qty: 30 RF: 1 Discharge Orders: Discharge ED (Routine); Ordered 11/20/20 Ordered By: Evette Casper Referrals: Kenneth Bravo DO [Primary Care Provider] - Coding Level of Care Code ED Sheet Manager for Chg Fwd Exam Detailed
[2020-11-20 16:17] LABS: Basophils # 0.1 10^3/uL (0.0-0.1); Basophils % 0.7 %; Eosinophils # 0.1 10^3/uL (0.0-0.8); Eosinophils % 1.2 %; Hematocrit 46.1 % (42.0-52.0); Hemoglobin 15.6 g/dL (11.7-16.6); Lymphocytes # 1.6 10^3/uL (0.8-4.8); Lymphocytes % 18.1 %; Mean Corpuscular HGB Conc 33.8 g/dL (30.0-36.0); Mean Corpuscular Hemoglobin 29.8 pg (28.0-34.0); Mean Platelet Volume 10.3 fL (7.4-10.4); Monocytes # 0.7 10^3/uL (0.2-0.9); Monocytes % 8.1 %; Neutrophils # 6.32 10^3/uL (1.8-7.7); Neutrophils % 71.4 %; Nucleated Red Blood Cells % 0 %; Platelet Count 196 10^3/cmm (130-400); Red Blood Count 5.24 10^6/uL (4.1-5.3); Red Cell Distribution Width 11.5 % (12.1-15.1); White Blood Count 8.9 10^3/uL (4.0-10.0)
[2020-11-20] MEDS: lidocaine 2% viscous 15 ML, aluminum-mag hydrox-simethicon 30 ML, sucralfate oral liq 1 GM PO (16:30)
[2020-11-20 16:36] LABS: Alanine Aminotransferase 46 U/L (0-41); Albumin Level 4.1 g/dL (3.5-5.2); Alkaline Phosphatase 98 IU/L (40-130); Aspartate Amino Transferase 19 U/L (0-40); Blood Urea Nitrogen 14 mg/dL (6-20); Calcium 9.3 mg/dL (8.5-10.5); Carbon Dioxide 22 mmol/L (22-29); Chloride 103 mmol/L (98-107); Globulin 3.4 g/dL (1.3-4.6); Glomerular Filtration Rate 116.9 mL/min (90-130); Glucose 85 mg/dL (65-115); Osmolality Calculated 284 mOsm/kg (285-295); Sodium 137 mmol/L (136-145); Total Bilirubin 0.4 mg/dL (0.15-1.2); Total Protein 7.5 g/dL (6.6-8.7)
[2020-11-20 18:05] LABS: Add Urine Microscopic? NO; Charge for UA Resulting for Rev
[2020-11-20 18:16] LABS: Bilirubin Urine Neg (Negative); Blood Urine Neg (Negative); Glucose Urine UA Norm (Normal); Ketones Urine Negative (Negative); Leukocyte Esterase Urine Negative (Negative); Nitrate Urine Negative (Negative); Protein Urine Neg (Negative); Urine Appearance Clear (CLEAR); Urine Color Yellow (Yellow); Urobilinogen Urine Norm (Negative); pH Urine 7 (5-7)
[2020-11-20 19:42] VITALS: BP 142/76; PULSE 82; RESP 18; O2SAT 98
== END 2020-11-20 19:45 | disposition home or self-care (01) ==
PROVIDERS: Emergency Provider Physician Assistant; PCP Internal Medicine
DX: G89.29 Other chronic pain (principal); R10.9 Unspecified abdominal pain; F84.0 Autistic disorder
CPT/HCPCS: 80053; 81003; 85025; 99282

== ENCOUNTER → 2020-12-03 09:15 | Outpatient (BNVA) | payer MEDICAID, SELFPAY | PROVIDERS: PCP Internal Medicine; Visit Provider Nurse Practitioner | DX: F34.81 Disruptive mood dysregulation disorder (principal); F84.0 Autistic disorder; F33.1 Major depressive disorder, recurrent, moderate | CPT/HCPCS: 99214 ==

== ENCOUNTER 2020-12-27 19:49 | Emergency (ER) | payer MEDICAID, SELFPAY ==
[2020-12-27 20:07] VITALS: BP 135/90; PULSE 109; RESP 16; TEMP 36.9; O2SAT 97
--- NOTE | 2020-12-27 21:28 | W.ED.ABDPA2 ---
HPI - Abdominal Pain General: Chief Complaint: Abdominal Pain Stated Complaint: ABDOMINAL PAIN Time Seen by Provider: 12/27/20 21:27 History of Present Illness: HPI narrative: 25-year-old male patient comes in with generalized abdominal pain for the last 2 months. Patient has been being treated with omeprazole 40 mg twice a day with no relief. Patient denies any persistent vomiting or blood in vomit or stools. Patient reports that when he eats he does have some pain relief. Patient appears well. Patient appears no acute distress. Patient lives at an assisted living facility due to mental health issues. Review of Systems General: Reports: 10 or more systems reviewed and unremarkable except in HPI and below GI: Reports: abdominal pain PFSH ED PFSH: Medical History Autistic disorder Disruptive mood dysregulation disorder Major depressive disorder, recurrent, moderate Psychiatric care Social History Smoking and tobacco status: never smoked Physical Exam Const: COMMON NORMALS: no acute distress and patient oriented x3 GENERAL APPEARANCE: cooperative HENMT: COMMON NORMALS: normocephalic and Normal external nose present HEAD & SCALP: normal to inspection and normocephalic NOSE: Normal external nose present MOUTH: Normal oral and palatal mucosa present Eye: GENERAL EYE: appearance normal, both eyes and all related structures Neck/C-Spine: COMMON NORMALS: full ROM Chest: COMMONS NORMALS: normal inspection of the chest Resp: COMMON NORMALS: normal respiratory effort EFFORT & INSPECTION: Yes able to speak in complete sentences Cardio: COMMON NORMALS: regular rate and regular rhythm RATE: regular rate RHYTHM: regular rhythm GI: COMMON NORMALS: Soft to palpation AUSCULTATION: Yes normoactive bowel sounds PALPATION: Yes Soft to palpation and Yes Tenderness to palpation present (GI) (Generalized, mild) : COMMON NORMALS: Yes no CVA tenderness BLADDER/KIDNEY EXAM: Yes no CVA tenderness Back/Pelvis: COMMON NORMALS: no CVA tenderness and thoracic and lumbar spine normal to inspection Extremity: COMMON NORMALS: normal to inspection Neuro: COMMON NORMALS: patient oriented x3 and moves all extremities Psych: COMMON NORMALS: mental status grossly normal and cooperative Skin: COMMON NORMALS: no rashes or lesions noted GENERAL SKIN EXAM: no rashes or lesions noted Course Vital Signs: Vital signs: Vital Signs Temperature 98.4 F 12/27/20 20:07 Pulse Rate 109 H 12/27/20 20:07 Respiratory Rate 16 12/27/20 20:07 Blood Pressure 135/90 12/27/20 20:07 Pulse Oximetry 97 12/27/20 20:07 MDM - Abdominal Pain MDM Narrative: Medical decision making narrative: 25-year-old male patient comes in today with generalized abdominal pain. On exam abdomen soft with normal active bowel sounds. Pain is elicited with deep palpation in the epigastric region of the stomach. Differential diagnosis includes but not limited to gastritis, appendicitis, pancreatitis, GERD. Laboratory values were unremarkable. There was some mild leukocytosis but the rest of his labs were normal. Patient did have some elevation in one of his liver enzymes but it seems to be chronic for him. CT of the abdomen and pelvis had no acute abnormalities. Reviewed exam with patient with recommendations for treatment and follow-up. Patient reported understanding and agreed to plan. Patient thinks that it may be due to his gastritis and his medicines not working because he has been following a good diet. Patient is going to try to cut sodas out of his diet and will follow up with primary care for further evaluation. A endoscopy may be necessary for further evaluation of the stomach and esophagus. Patient and caregiver both reported understanding. Lab Data: Labs: Lab Results 12/27/20 12/27/20 21:30 21:30 WBC 11.2 10^3/uL H 10 ^3/uL (4.0-10.0) RBC 5.17 10^6/uL 10^6 /uL (4.1-5.3) Hgb 15.8 g/dL g/dL (11.7-16.6) Hct 45.1 % % (42.0-52.0) MCV 87.2 fl fl (80-94) MCH 30.6 pg pg (28.0-34.0) MCHC 35.0 g/dL g/dL (30.0-36.0) RDW 11.6 % L % (12.1-15.1) Plt Count 188 10^3/cmm 10^3 /cmm (130-400) MPV 10.0 fL fL (7.4-10.4) Neut % (Auto) 64.8 % % Lymph % (Auto) 23.9 % % [place] % (Auto) 8.6 % % Eos % (Auto) 1.6 % % Baso % (Auto) 0.7 % % Neut # (Auto) 7.26 10^3/uL 10^3 /uL (1.8-7.7) Lymph # (Auto) 2.7 10^3/uL 10^3/ uL (0.8-4.8) [place] # (Auto) 1.0 10^3/uL H 10^ 3/uL (0.2-0.9) Eos # (Auto) 0.2 10^3/uL 10^3/ uL (0.0-0.8) Baso # (Auto) 0.1 10^3/uL 10^3/ uL (0.0-0.1) Nucleated RBC % (a uto) 0 % % Nucleated RBCs # 0.0 /100WBC /100W BC Sodium 139 mmol/L mmol/L (136-145) Potassium 4.1 mmol/L mmol/L (3.5-5.1) Chloride 105 mmol/L mmol/L (98-107) Carbon Dioxide 20 mmol/L L mmol/ L (22-29) Anion Gap 18.1 (5-19) BUN 19 mg/dL mg/dL (6-20) Creatinine 0.8 mg/dL mg/dL (0.7-1.2) GFR Calculation 116.9 mL/min mL/m in (90-130) Glucose 94 mg/dL mg/dL (65-115) Calculated Osmolal ity 290 mOsm/kg mOsm/ kg (285-295) Calcium 8.9 mg/dL mg/dL (8.5-10.5) Total Bilirubin 0.3 mg/dL mg/dL (0.15-1.2) AST 19 U/L U/L (0-40) ALT 52 U/L H U/L (0-41) Alkaline Phosphata se 125 IU/L IU/L (40-130) Total Protein 7.3 g/dL g/dL (6.6-8.7) Albumin 4.3 g/dL g/dL (3.5-5.2) Globulin 3.0 g/dL g/dL (1.3-4.6) Lipase 38 U/L U/L (13-60) Discharge Plan Discharge Patient Disposition: Home Clinical Impression: Abdominal pain Qualifiers: Abdominal location: generalized Qualified Code(s): R10.84 - Generalized abdominal pain Condition: Stable Prescriptions: No Action omeprazole 20 mg capsule,delayed release(DR/EC) 40 mg PO BID RF: 0 fluoxetine [Prozac] 20 mg capsule 20 mg PO DAILY Qty: 30 RF: 1 prenat.vits,carson,[id number] Tablet 1 tab PO DAILY@2200 RF: 0 medroxyprogesterone 150 mg/mL suspension 150 mg IM Q30D RF: 0 acetaminophen [Tylenol Extra Strength] 500 mg tablet 500 mg PO TID PRN (Reason: pain) RF: 0 ibuprofen [Motrin IB] 200 mg capsule 600 mg PO Q6H PRN (Reason: muscle pain) RF: 0 prazosin 1 mg capsule 1 mg PO DAILY PRN (Reason: nightmares) Qty: 30 RF: 2 trazodone 50 mg tablet 50 mg PO .HS PRN (Reason: sleep) Qty: 30 RF: 1 loratadine 10 mg Capsule 10 mg PO DAILY PRN (Reason: Allergic Symptoms) RF: 0 fluoride (sodium) [SF 5000 Plus] 1.1 % Cream 1 applic DENTAL DAILY RF: 0 hydroxyzine HCl 50 mg tablet 50 mg PO BEDTIME PRN (Reason: sleep) RF: 0 naphazoline 0.012 % Drops 1 drp OPHTHALMIC (EYE) DAILY PRN (Reason: Dry Eyes) RF: 0 Wellbutrin XL 300 mg tablet extended release 24 hr 300 mg PO QAM 30 Days Qty: 30 RF: 1 Discharge Orders: Discharge ED (Routine); Ordered 12/27/20 Ordered By: Carlos Morton Referrals: Kenneth Bravo DO [Primary Care Provider] - Discharge Diet: Advance as tolerated Discharge Activity: Resume usual activity Patient Instructions: Diet for Stomach Ulcers and Gastritis (ED), Abdominal Pain (ED), Opioid Safety Activity Restrictions/Additional Instructions: Home and rest. Diet as tolerated. Decrease soda or carbonated beverage intake. Follow-up with primary care in 1 week for recheck. Return to the ER for high fever greater than 100.4, blood in vomit or emesis, or new concerns. Coding Level of Care Code ED Import And Export Clerk for Sonyg Fwd Exam Comprehensive
[2020-12-27 21:43] LABS: Basophils # 0.1 10^3/uL (0.0-0.1); Basophils % 0.7 %; Eosinophils # 0.2 10^3/uL (0.0-0.8); Eosinophils % 1.6 %; Hematocrit 45.1 % (42.0-52.0); Hemoglobin 15.8 g/dL (11.7-16.6); Lymphocytes # 2.7 10^3/uL (0.8-4.8); Lymphocytes % 23.9 %; Mean Corpuscular Hemoglobin 30.6 pg (28.0-34.0); Mean Corpuscular Volume 87.2 fl (80-94); Monocytes % 8.6 %; Neutrophils # 7.26 10^3/uL (1.8-7.7); Neutrophils % 64.8 %; Nucleated Red Blood Cells % 0 %; Platelet Count 188 10^3/cmm (130-400); Red Blood Count 5.17 10^6/uL (4.1-5.3); Red Cell Distribution Width 11.6 % (12.1-15.1); White Blood Count 11.2 10^3/uL (4.0-10.0)
--- NOTE | 2020-12-27 21:45 | CTR_ITS ---
PROCEDURE INFORMATION: Exam: CT Abdomen And Pelvis With Contrast Exam date and time: 12/27/2020 9:45 PM Age: 25 years old Clinical indication: Abdominal pain; Localized; Patient HX: Lower abd pain x 2 days; Additional info: Generalized abd pain TECHNIQUE: Imaging protocol: Computed tomography of the abdomen and pelvis with contrast. Radiation optimization: All CT scans at this facility use at least one of these dose optimization techniques: automated exposure control; mA and/or kV adjustment per patient size (includes targeted exams where dose is matched to clinical indication); or iterative reconstruction. Contrast material: OMNI 300; Contrast volume: 95 ml; Contrast route: INTRAVENOUS (IV); COMPARISON: CR Hip 2-3v LEFT wwo Pelv* [id number] 10/22/2016 11:28 AM RADIATION DOSE METRICS: Total DLP (mGy-cm): 2049.17 FINDINGS: Liver: Normal. No mass. Gallbladder and bile ducts: Normal. No calcified stones. No ductal dilation. Pancreas: Normal. No ductal dilation. Spleen: Normal. No splenomegaly. Adrenal glands: Normal. No mass. Kidneys and ureters: Normal. No hydronephrosis. Stomach and bowel: Unremarkable. No obstruction. No mucosal thickening. Appendix: The appendix is visualized and is normal. Intraperitoneal space: Unremarkable. No free air. No significant fluid collection. Vasculature: Unremarkable. No abdominal aortic aneurysm. Lymph nodes: Multiple small mesenteric lymph nodes are most likely reactive. Urinary bladder: Unremarkable as visualized. Reproductive: Unremarkable as visualized. Bones/joints: Unremarkable. No acute fracture. Soft tissues: Unremarkable. CT/CT abdomen pelvis w con* [id number] IMPRESSION: 1. No acute abnormality identified in the abdomen or pelvis. Radiation Dose CTDIVOL = (mGy): DLP = 2049.17 (mGy-cm)
[2020-12-27 22:03] LABS: Alanine Aminotransferase 52 U/L (0-41); Albumin Level 4.3 g/dL (3.5-5.2); Alkaline Phosphatase 125 IU/L (40-130); Anion Gap 18.1 (5-19); Aspartate Amino Transferase 19 U/L (0-40); Blood Urea Nitrogen 19 mg/dL (6-20); Calcium 8.9 mg/dL (8.5-10.5); Carbon Dioxide 20 mmol/L (22-29); Chloride 105 mmol/L (98-107); Glomerular Filtration Rate 116.9 mL/min (90-130); Glucose 94 mg/dL (65-115); Lipase 38 U/L (13-60); Osmolality Calculated 290 mOsm/kg (285-295); Potassium 4.1 mmol/L (3.5-5.1); Sodium 139 mmol/L (136-145); Total Bilirubin 0.3 mg/dL (0.15-1.2); Total Protein 7.3 g/dL (6.6-8.7)
[2020-12-27] MEDS: iodixanol 320 mg/mL 100mL Btl IV (22:06)
[2020-12-27 23:22] VITALS: BP 135/74; PULSE 78; RESP 18; O2SAT 98
== END 2020-12-27 23:24 | disposition home or self-care (01) ==
PROVIDERS: Emergency Medicine; Emergency Provider Nurse Practitioner Family; PCP Internal Medicine
DX: R10.84 Generalized abdominal pain (principal); F84.0 Autistic disorder
CPT/HCPCS: 74177; 80053; 83690; 85025; 99283; Q9967

== ENCOUNTER → 2021-01-14 09:15 | Outpatient (BNVA) | payer MEDICAID, SELFPAY | PROVIDERS: PCP Internal Medicine; Visit Provider Nurse Practitioner | DX: F33.1 Major depressive disorder, recurrent, moderate (principal); F84.0 Autistic disorder | CPT/HCPCS: 99214 ==

== ENCOUNTER → 2021-03-11 09:14 | Outpatient (BNVA) | payer MEDICAID, SELFPAY | PROVIDERS: PCP Internal Medicine; Visit Provider Nurse Practitioner | DX: F33.1 Major depressive disorder, recurrent, moderate (principal); F84.0 Autistic disorder | CPT/HCPCS: 99214 ==

== ENCOUNTER 2021-04-16 20:00 | Emergency (ER) | payer MEDICAID, SELFPAY ==
[2021-04-16 20:02] VITALS: BP 143/72; PULSE 101; RESP 16; TEMP 36.4; O2SAT 96; BMI 31.8
--- NOTE | 2021-04-16 20:09 | W.ED.GENADLT ---
HPI - General Adult General: Chief complaint: General Medical Stated complaint: throwing up blood Time Seen by Provider: 04/16/21 20:08 History of Present Illness: 26-year-old male comes in with abrasion to the posterior pharynx. Patient was using a toothpick to make him gag when he scratched it. Patient had a small amount of blood in his expectorant. Patient came in for evaluation. Patient appears well. Patient is swallowing without difficulty. Review of Systems General: Reports: 10 or more systems reviewed and unremarkable except in HPI and below ENMT: Reports: throat pain PFSH ED PFSH: Medical History Autistic disorder Disruptive mood dysregulation disorder Major depressive disorder, recurrent, moderate Psychiatric care Social History Smoking and tobacco status: never smoked Physical Exam Const: COMMON NORMALS: alert HENMT: COMMON NORMALS: atraumatic HEAD & SCALP: atraumatic THROAT: posterior oropharynx normal and uvula midline Eye: COMMON NORMALS: EOMs intact bilaterally Neck/C-Spine: COMMON NORMALS: full ROM Resp: COMMON NORMALS: normal respiratory effort Cardio: COMMON NORMALS: regular rate and regular rhythm RATE: regular rate RHYTHM: regular rhythm Extremity: COMMON NORMALS: no pedal edema Neuro: SENSORIUM/ORIENTATION: Yes alert Psych: COMMON NORMALS: cooperative Course Vital Signs: Vital signs: Vital Signs Temperature 97.5 F L 04/16/21 20:02 Pulse Rate 101 H 04/16/21 20:02 Respiratory Rate 16 04/16/21 20:02 Blood Pressure 143/72 04/16/21 20:02 Pulse Oximetry 96 04/16/21 20:02 [facility] - General Adult Medical Decision Making Patient comes in today for concerns of injury to posterior pharynx. On exam patient has no obvious laceration or injury to the posterior pharynx. Patient is able to swallow without difficulty. Vital signs are normal. Differential diagnosis includes but not limited to abrasion of the pharynx, anxiety, GERD. Reviewed exam with patient with recommendations for monitoring for fever or increased difficulty swallowing. Patient reported understanding and agreed to plan. Patient was given a GI cocktail for his sore throat and his dyspepsia. Patient will follow up with primary care. Discharge Plan Discharge Patient Disposition: Home Clinical Impression: Abrasion of pharynx Qualifiers: Encounter type: initial encounter Qualified Code(s): S10.11XA - Abrasion of throat, initial encounter Condition: Stable Prescriptions: No Action omeprazole 20 mg capsule,delayed release(DR/EC) 40 mg PO BID 0RF acetaminophen [Tylenol Extra Strength] 500 mg tablet 500 mg PO TID PRN (Reason: pain) 0RF fluoxetine [Prozac] 20 mg capsule 20 mg PO DAILY Qty: 30 2RF Rx Instructions: Give at 9PM trazodone 50 mg tablet 50 mg PO .HS Qty: 30 2RF Rx Instructions: Give at 9PM ziprasidone HCl [Geodon] 40 mg capsule 40 mg PO .at bed Qty: 30 2RF Rx Instructions: give with food (meal/snack) Give at 9pm multivitamin Tablet 1 tab PO DAILY Qty: 30 2RF Rx Instructions: Give at 9PM prazosin 1 mg capsule 1 mg PO DAILY PRN (Reason: nightmares) Qty: 30 2RF bupropion HCl [Wellbutrin XL] 300 mg tablet extended release 24 hr 300 mg PO QAM 30 Days Qty: 30 2RF Rx Instructions: Give at 9AM loratadine 10 mg Capsule 10 mg PO DAILY PRN (Reason: Allergic Symptoms) 0RF fluoride (sodium) [SF 5000 Plus] 1.1 % Cream 1 applic DENTAL DAILY 0RF hydroxyzine HCl 50 mg tablet 50 mg PO BEDTIME PRN (Reason: sleep) 0RF naphazoline 0.012 % Drops 1 drp OPHTHALMIC (EYE) DAILY PRN (Reason: Dry Eyes) 0RF Discharge Orders: Discharge ED (Routine); Ordered 04/16/21 Ordered By: Carlos Morton Referrals: Kenneth Bravo DO [Primary Care Provider] - Discharge Diet: Usual diet Discharge Activity: Increase activity as tolerated Activity Restrictions/Additional Instructions: Drink plenty of water. Good oral care. Monitor for fever greater than 100.4 or increasing difficulty swallowing. Follow-up with primary care in 3 days for recheck. Return to ER for new concerns. Coding Level of Care Code ED Milk Route Deliverer for Alva Che
[2021-04-16] MEDS: lidocaine 2% viscous 15 ML, aluminum-mag hydrox-simethicon 30 ML, sucralfate oral liq 1 GM PO (20:24)
== END 2021-04-16 20:30 | disposition home or self-care (01) ==
PROVIDERS: Emergency Provider Nurse Practitioner Family; PCP Internal Medicine
DX: S10.11XA Abrasion of throat, initial encounter (principal); F84.0 Autistic disorder; X58.XXXA Exposure to other specified factors, initial encounter
CPT/HCPCS: 99283

== ENCOUNTER → 2021-04-21 08:12 | Outpatient (BNVA) | payer MEDICAID, SELFPAY | PROVIDERS: PCP Internal Medicine; Visit Provider Nurse Practitioner | DX: F33.1 Major depressive disorder, recurrent, moderate (principal); F84.0 Autistic disorder | CPT/HCPCS: 99214 ==

== ENCOUNTER 2021-04-23 19:48 | Emergency (ER) | payer MEDICAID, SELFPAY ==
[2021-04-23 19:53] VITALS: BP 129/75; PULSE 116; RESP 16; TEMP 37; O2SAT 96; BMI 29.8
--- NOTE | 2021-04-23 20:08 | XRR_ITS ---
PROCEDURE INFORMATION: Exam: XR Abdomen Exam date and time: 04/23/2021 8:08 PM Age: 26 years old Clinical indication: Vomiting; Abdominal pain; Other: Middle of abdomen; Additional info: Abdominal pain, vomiting TECHNIQUE: Imaging protocol: XR of the abdomen. Views: 2 Views. Upright and supine views. COMPARISON: CT abdomen pelvis w con* [id number] 12/27/2020 10:05 PM FINDINGS: Gastrointestinal tract: Normal. No bowel dilation. Intraperitoneal space: Normal. No free air. Bones/joints: Unremarkable for age. XR/XR abdomen min 2V [id number] IMPRESSION: No acute findings.
--- NOTE | 2021-04-23 20:08 | W.ED.ABDPA2 ---
HPI - Abdominal Pain General: Chief Complaint: Abdominal Pain Stated Complaint: abd pain, fever Time Seen by Provider: 04/23/21 20:01 Source: patient and other (caregiver) Mode of arrival: ambulatory Limitations: no limitations History of Present Illness: Patient is a 26-year-old male who presents to ED today along with his caregiver for concerns of upper/epigastric abdominal pain. Patient and caregiver states he has a longstanding history of chronic abdominal pains. Patient states he has vomited several times today. He states he does vomit frequently secondary to excessive eating. According to caregiver they do have an appointment with a GI specialist on Wednesday for evaluation for possible endoscopy. Patient does take a PPI daily but states this medication does not help. I have seen patient previously for identical symptoms. He is having normal bowel movements. Triage report states something about a fever however patient and caregiver both deny he has had fevers. Patient states his abdominal pain today feels similar to previous pains. MD elicited complaint: abdominal pain Pertinent past history: other (chronic abdominal pain) Onset (ago): hour(s) Pain Consistency: constant Location: Epigastric Exacerbating factors: eating Relieving factors: nothing Associated Symptoms: Reports nausea and vomiting; Denies change in bowel habits, change in stool character, chills, dysuria, fever(s), hematochezia, hematemesis and melena Review of Systems Const: Denies: fever(s), chills, body aches, fatigue or malaise Card: Denies: chest pain Resp: Denies: dyspnea GI: Reports: abdominal pain, nausea and vomiting; Denies: hematemesis, change in bowel habits, pain on defecation, rectal swelling, change in stool character, hematochezia or melena : Denies: flank pain or dysuria Musc: Denies: neck pain, back pain, extremity pain or joint pain Skin/Breast: Denies: rash Neuro: Denies: headache(s), numbness in extremities, weakness in extremities or sensory changes PFSH ED PFSH: Medical History Autistic disorder Disruptive mood dysregulation disorder Major depressive disorder, recurrent, moderate Psychiatric care Social History Smoking and tobacco status: never smoked Physical Exam Const: COMMON NORMALS: no acute distress, patient oriented x3, no limitations and alert NUTRITIONAL APPEARANCE: overweight ORIENTATION/CONSCIOUSNESS: Yes awake, Yes oriented to person, Yes oriented to place and Yes oriented to time HENMT: COMMON NORMALS: normocephalic and atraumatic HEAD & SCALP: normocephalic and atraumatic Resp: COMMON NORMALS: normal respiratory effort and clear to auscultation bilaterally AUSCULTATION: clear to auscultation bilaterally Cardio: COMMON NORMALS: regular rate and regular rhythm RATE: regular rate RHYTHM: regular rhythm GI: COMMON NORMALS: Normal to inspection, nondistended, normoactive bowel sounds present, Soft to palpation, No hepatosplenomegaly present and no masses INSPECTION: Yes normal to inspection PALPATION: Yes Soft to palpation, Yes Tenderness to palpation present (GI) (epigastric-non surgical exam), No Guarding due to palpation present (GI), No Rigid due to palpation and Yes No hepatosplenomegaly present : COMMON NORMALS: Yes no CVA tenderness BLADDER/KIDNEY EXAM: Yes no CVA tenderness Back/Pelvis: COMMON NORMALS: no CVA tenderness Extremity: GENERAL: Yes normal exam except as noted Neuro: COMMON NORMALS: patient oriented x3 SENSORIUM/ORIENTATION: Yes alert, Yes oriented to person, Yes oriented to place and Yes oriented to time OTHER: at mental baseline per caregiver and agree as I have seen patient previously Skin: COMMON NORMALS: no rashes or lesions noted GENERAL SKIN EXAM: no rashes or lesions noted Course Vital Signs: Vital signs: Vital Signs Temperature 98.6 F 04/23/21 19:53 Pulse Rate 116 H 04/23/21 19:53 Respiratory Rate 16 04/23/21 19:53 Blood Pressure 129/75 04/23/21 19:53 Pulse Oximetry 96 04/23/21 19:53 MDM - Abdominal Pain Medical Decision Making Patient clinically appears in no acute distress. Initial vital signs reveal patient is tachycardic but this is chronic for him looking at previous vital signs. Lab work is unremarkable. His XR is normal. Abdomen is nonsurgical on exam. I have seen patient previously on his exam and history today is very similar to previous visits. Caregiver states they have an appointment with Dr. Damon on Wednesday for further evaluation. I think this is appropriate. Return ED precautions given. Lab Data : 04/23/21 20:55 04/23/21 20:55 Labs/Radiology: Radiology Impressions Abdomen X-Ray 04/23/21 20:08 IMPRESSION: No acute findings. Laboratory Results WBC 7.8 10^3/uL (4.0-10.0) 04/23/21 20:55 RBC 5.49 10^6/uL (4.1-5.3) H 04/23/21 20:55 Hgb 16.5 g/dL (11.7-16.6) 04/23/21 20:55 Hct 48.1 % (42.0-52.0) 04/23/21 20:55 MCV 87.6 fl (80-94) 04/23/21 20:55 MCH 30.1 pg (28.0-34.0) 04/23/21 20: MCHC 34.3 g/dL (30.0-36.0) 04/23/21 20:55 RDW 11.9 % (12.1-15.1) L 04/23/21 20:55 Plt Count 189 10^3/cmm (130-400) 04/23/21 20:55 MPV 10.4 fL (7.4-10.4) 04/23/21 20:55 Neut % (Auto) 65.2 % 04/23/21 20:55 Lymph % (Auto) 21.5 % 04/23/21 20:55 [place] % (Auto) 11.1 % 04/23/21 20:55 Eos % (Auto) 1.2 % 04/23/21 20:55 Baso % (Auto) 0.6 % 04/23/21 20:55 Neut # (Auto) 5.09 10^3/uL (1.8-7.7) 04/23/21 20:55 Lymph # (Auto) 1.7 10^3/uL (0.8-4.8) 04/23/21 20:55 [place] # (Auto) 0.9 10^3/uL (0.2-0.9) 04/23/21 20:55 Eos # (Auto) 0.1 10^3/uL (0.0-0.8) 04/23/21 20:55 Baso # (Auto) 0.1 10^3/uL (0.0-0.1) 04/23/21 20:55 Nucleated RBC % (auto) 0 % 04/23/21 20:55 Nucleated RBCs # 0.0 /100WBC 04/23/21 20:55 Sodium 136 mmol/L (136-145) 04/23/21 20:55 Potassium 3.7 mmol/L (3.5-5.1) 04/23/21 20:55 Chloride 103 mmol/L (98-107) 04/23/21 20:55 Carbon Dioxide 22 mmol/L (22-29) 04/23/21 20:55 Anion Gap 14.7 (5-19) 04/23/21 20:55 BUN 11 mg/dL (6-20) 04/23/21 20:55 Creatinine 0.8 mg/dL (0.7-1.2) 04/23/21 20:55 GFR Calculation 116.0 mL/min (90-130) 04/23/21 20:55 Glucose 94 mg/dL (65-115) 04/23/21 20:55 Calculated Osmolality 281 mOsm/kg (285-295) L 04/23/21 20:55 Calcium 9.7 mg/dL (8.5-10.5) 04/23/21 20:55 Total Bilirubin 0.4 mg/dL (0.15-1.2) 04/23/21 20:55 AST 28 U/L (0-40) 04/23/21 20:55 ALT 53 U/L (0-41) H 04/23/21 20:55 Alkaline Phosphatase 119 IU/L (40-130) 04/23/21 20:55 Total Protein 7.6 g/dL (6.6-8.7) 04/23/21 20:55 Albumin 4.2 g/dL (3.5-5.2) 04/23/21 20:55 Globulin 3.4 g/dL (1.3-4.6) 04/23/21 20:55 Lipase 21 U/L (13-60) 04/23/21 20:55 Discharge Plan Discharge Patient Disposition: Home Clinical Impression: Abdominal pain, chronic, epigastric Condition: Stable Prescriptions: No Action omeprazole 20 mg capsule,delayed release(DR/EC) 40 mg PO BID 0RF trazodone 50 mg tablet 50 mg PO .HS PRN (Reason: sleep) Qty: 30 2RF Rx Instructions: Give at 9PM acetaminophen [Tylenol Extra Strength] 500 mg tablet 500 mg PO TID PRN (Reason: pain) 0RF fluoxetine [Prozac] 20 mg capsule 20 mg PO DAILY Qty: 30 2RF Rx Instructions: Give at 9PM ziprasidone HCl [Geodon] 40 mg capsule 40 mg PO .at bed Qty: 30 2RF Rx Instructions: give with food (meal/snack) Give at 9pm multivitamin Tablet 1 tab PO DAILY Qty: 30 2RF Rx Instructions: Give at 9PM bupropion HCl [Wellbutrin XL] 300 mg tablet extended release 24 hr 300 mg PO QAM 30 Days Qty: 30 2RF Rx Instructions: Give at 9AM loratadine 10 mg Capsule 10 mg PO DAILY PRN (Reason: Allergic Symptoms) 0RF fluoride (sodium) [SF 5000 Plus] 1.1 % Cream 1 applic DENTAL DAILY 0RF naphazoline 0.012 % Drops 1 drp OPHTHALMIC (EYE) DAILY PRN (Reason: Dry Eyes) 0RF Discharge Orders: Discharge ED (Routine); Ordered 04/23/21 Ordered By: Evette Casper Referrals: Kenneth Bravo DO [Primary Care Provider] - Patient Instructions: Abdominal Pain (ED) Coding Level of Care Code ED Prepared Foods Production Team Member for Chg Fwd Exam Comprehensive
[2021-04-23 21:08] LABS: Basophils # 0.1 10^3/uL (0.0-0.1); Basophils % 0.6 %; Eosinophils # 0.1 10^3/uL (0.0-0.8); Eosinophils % 1.2 %; Hematocrit 48.1 % (42.0-52.0); Hemoglobin 16.5 g/dL (11.7-16.6); Lymphocytes # 1.7 10^3/uL (0.8-4.8); Lymphocytes % 21.5 %; Mean Corpuscular HGB Conc 34.3 g/dL (30.0-36.0); Mean Corpuscular Hemoglobin 30.1 pg (28.0-34.0); Mean Corpuscular Volume 87.6 fl (80-94); Mean Platelet Volume 10.4 fL (7.4-10.4); Monocytes # 0.9 10^3/uL (0.2-0.9); Monocytes % 11.1 %; Neutrophils # 5.09 10^3/uL (1.8-7.7); Neutrophils % 65.2 %; Nucleated Red Blood Cells % 0 %; Platelet Count 189 10^3/cmm (130-400); Red Blood Count 5.49 10^6/uL (4.1-5.3); Red Cell Distribution Width 11.9 % (12.1-15.1); White Blood Count 7.8 10^3/uL (4.0-10.0)
[2021-04-23 21:22] LABS: Alanine Aminotransferase 53 U/L (0-41); Albumin Level 4.2 g/dL (3.5-5.2); Alkaline Phosphatase 119 IU/L (40-130); Anion Gap 14.7 (5-19); Aspartate Amino Transferase 28 U/L (0-40); Blood Urea Nitrogen 11 mg/dL (6-20); Calcium 9.7 mg/dL (8.5-10.5); Carbon Dioxide 22 mmol/L (22-29); Chloride 103 mmol/L (98-107); Globulin 3.4 g/dL (1.3-4.6); Glucose 94 mg/dL (65-115); Lipase 21 U/L (13-60); Osmolality Calculated 281 mOsm/kg (285-295); Potassium 3.7 mmol/L (3.5-5.1); Sodium 136 mmol/L (136-145); Total Bilirubin 0.4 mg/dL (0.15-1.2); Total Protein 7.6 g/dL (6.6-8.7)
[2021-04-23] MEDS: lidocaine 2% viscous 15 ML, aluminum-mag hydrox-simethicon 30 ML, sucralfate oral liq 1 GM PO (21:45)
== END 2021-04-23 21:49 | disposition home or self-care (01) ==
PROVIDERS: Emergency Provider Physician Assistant; PCP Internal Medicine
DX: G89.29 Other chronic pain (principal); R10.13 Epigastric pain; F84.0 Autistic disorder
CPT/HCPCS: 74019; 80053; 83690; 85025; 99283

== ENCOUNTER 2021-05-07 07:56 | Emergency (ER) | payer MEDICAID, SELFPAY ==
[2021-05-07] VITALS (7 sets, daily range): BP systolic 123–145; BP diastolic 67–92; PULSE 84–106; RESP 14–18; TEMP 36.6–36.9; O2SAT 94–96; BMI 28.5
--- NOTE | 2021-05-07 08:03 | W.ED.ABDPA2 ---
HPI - Abdominal Pain General: Chief Complaint: Abdominal Pain Stated Complaint: PSYCH PT - ABDOMINAL PAIN Time Seen by Provider: 05/07/21 07:58 Source: patient Mode of arrival: EMS Limitations: other (Autism) History of Present Illness: 26-year-old male presents to the emergency room with complaints of abdominal pain. Patient states he has had this for several months he has been started on medications for it and was referred for an endoscopy but has not yet had it. States the pain is very very intense . Reports some vomiting but no hematemesis or coffee-ground emesis. No hematochezia melena. Denies any chest pain or any dysuria urgency or frequency. Reviewing his medicine list he has been on omeprazole 40 mg twice daily for the last month. MD elicited complaint: abdominal pain Pertinent past history: other (Abdominal pain and reflux) Onset (ago): month(s) Pain Consistency: intermittent Location: Epigastric Severity: moderate Quality: cramping Radiation: none Migration to: no migration Exacerbating factors: eating Relieving factors: nothing Associated Symptoms: Reports GI cramping, nausea, poor appetite and vomiting; Denies anorexia, belching, bloating, change in bowel habits, change in stool character, chills, coffee ground emesis, constipation, diarrhea, dyspepsia, dysuria, excessive flatus, fever(s), heartburn, hematochezia, hematuria, hematemesis, fecal incontinence, loose stools, melena and syncope Review of Systems Const: Denies: fever(s) or chills ENMT: Denies: throat pain, ear or mastoid pain, nasal discharge or nasal congestion Card: Denies: syncope Resp: Denies: dyspnea, productive cough or non-productive cough GI: Reports: nausea, vomiting and GI cramping; Denies: hematemesis, coffee ground emesis, heartburn, diarrhea, constipation, bloating, belching, excessive flatus, fecal incontinence, change in bowel habits, change in stool character, hematochezia or melena : Denies: dysuria or hematuria Skin/Breast: Denies: rash or pruritus PFS ED PFSH: Medical History Autistic disorder Disruptive mood dysregulation disorder Major depressive disorder, recurrent, moderate Psychiatric care Surgical History History of foot surgery right- 2020 Social History Smoking and tobacco status: never smoked Physical Exam Const: COMMON NORMALS: no acute distress GENERAL APPEARANCE: cooperative and comfortable ORIENTATION/CONSCIOUSNESS: Yes awake HENMT: COMMON NORMALS: normocephalic, atraumatic and hearing grossly normal bilaterally HEAD & SCALP: normocephalic and atraumatic Neck/C-Spine: COMMON NORMALS: no JVD Resp: COMMON NORMALS: normal respiratory effort, No retractions, No use of accessory muscles and clear to auscultation bilaterally AUSCULTATION: clear to auscultation bilaterally Cardio: COMMON NORMALS: no JVD, regular rate, regular rhythm and No murmurs present (Cardio) RATE: regular rate RHYTHM: regular rhythm GI: COMMON NORMALS: No hepatosplenomegaly present AUSCULTATION: Yes normoactive bowel sounds PALPATION: Yes Tenderness to palpation present (GI) (Epigastric), No Guarding due to palpation present (GI) and Yes No hepatosplenomegaly present Extremity: COMMON NORMALS: normal to inspection, capillary refill normal, no clubbing, cyanosis or edema, no calf tenderness and no pedal edema Skin: COMMON NORMALS: no rashes or lesions noted GENERAL SKIN EXAM: no rashes or lesions noted Course Vital Signs: Vital signs: Vital Signs Temperature 98.3 F 05/07/21 12:54 Pulse Rate 98 05/07/21 12:54 Respiratory Rate 16 05/07/21 12:54 Blood Pressure 145/92 05/07/21 12:54 Pulse Oximetry 96 05/07/21 12:54 MDM - Abdominal Pain Medical Decision Making Patient had excited utterance about suicidal thoughts. I did have Dr. Howlel come and see him he does not feel the patient requires hospitalization. He recommends that the patient be discharged home no change in medications at this point. His CT and labs reviewed no acute findings noted we will change him from omeprazole to pantoprazole follow-up with his primary care doctor Medical Records I reviewed the patient's medical records. Lab Data I reviewed the patient's lab results. : 05/07/21 08:37 05/07/21 08:37 Labs/Radiology: Radiology Impressions Abdomen/Pelvis CT 05/07/21 08:09 IMPRESSION: 1. Negative CT abdomen and pelvis. 2. Suspect early changes of developing osteonecrosis at the RIGHT femoral head. Laboratory Results WBC 6.2 10^3/uL (4.0-10.0) 05/07/21 08:37 RBC 4.96 10^6/uL (4.1-5.3) 05/07/21 08:37 Hgb 15.2 g/dL (11.7-16.6) 05/07/21 08:37 Hct 44.0 % (42.0-52.0) 05/07/21 08:37 MCV 88.7 fl (80-94) 05/07/21 08:37 MCH 30.6 pg (28.0-34.0) 05/07/21 08:37 MCHC 34.5 g/dL (30.0-36.0) 05/07/21 08:37 RDW 12.2 % (12.1-15.1) 05/07/21 08:37 Plt Count 164 10^3/cmm (130-400) 05/07/21 08:37 MPV 9.8 fL (7.4-10.4) 05/07/21 08:37 Neut % (Auto) 73.1 % 05/07/21 08:37 Lymph % (Auto) 17.1 % 05/07/21 08:37 [place] % (Auto) 7.6 % 05/07/21 08:37 Eos % (Auto) 1.1 % 05/07/21 08:37 Baso % (Auto) 0.6 % 05/07/21 08:37 Neut # (Auto) 4.54 10^3/uL (1.8-7.7) 05/07/21 08:37 Lymph # (Auto) 1.1 10^3/uL (0.8-4.8) 05/07/21 08:37 [place] # (Auto) 0.5 10^3/uL (0.2-0.9) 05/07/21 08:37 Eos # (Auto) 0.1 10^3/uL (0.0-0.8) 05/07/21 08:37 Baso # (Auto) 0.0 10^3/uL (0.0-0.1) 05/07/21 08:37 Nucleated RBC % (auto) 0 % 05/07/21 08:37 Nucleated RBCs # 0.0 /100WBC 05/07/21 08:37 Sodium 141 mmol/L (136-145) 05/07/21 08:37 Potassium 4.0 mmol/L (3.5-5.1) 05/07/21 08:37 Chloride 109 mmol/L (98-107) H 05/07/21 08:37 Carbon Dioxide 22 mmol/L (22-29) 05/07/21 08:37 Anion Gap 14.0 (5-19) 05/07/21 08:37 BUN 13 mg/dL (6-20) 05/07/21 08:37 Creatinine 0.8 mg/dL (0.7-1.2) 05/07/21 08:37 GFR Calculation 116.0 mL/min (90-130) 05/07/21 08:37 Glucose 126 mg/dL (65-115) H 05/07/21 08:37 Calculated Osmolality 294 mOsm/kg (285-295) 05/07/21 08:37 Calcium 9.3 mg/dL (8.5-10.5) 05/07/21 08:37 Total Bilirubin 0.4 mg/dL (0.15-1.2) 05/07/21 08:37 AST 27 U/L (0-40) 05/07/21 08:37 ALT 65 U/L (0-41) H 05/07/21 08:37 Alkaline Phosphatase 112 IU/L (40-130) 05/07/21 08:37 Total Protein 6.6 g/dL (6.6-8.7) 05/07/21 08:37 Albumin 3.8 g/dL (3.5-5.2) 05/07/21 08:37 Globulin 2.8 g/dL (1.3-4.6) 05/07/21 08:37 Urine Color Yellow (Yellow) 05/07/21 10:17 Urine Appearance Clear (CLEAR) 05/07/21 10:17 Urine pH 8 (5-7) H 05/07/21 10:17 Ur Specific [place] 1.010 (1.005-1.030) 05/07/21 10:17 Urine Protein Trace (Negative) 05/07/21 10:17 Urine Glucose (UA) Norm (Normal) 05/07/21 10:17 Urine Ketones Negative (Negative) 05/07/21 10:17 Urine Blood Neg (Negative) 05/07/21 10:17 Urine Nitrate Negative (Negative) 05/07/21 10:17 Urine Bilirubin Neg (Negative) 05/07/21 10:17 Prot Sulfosalicylic Acd Negative (Negative) 05/07/21 10:17 Urine Urobilinogen 1 mg/dL (Negative) H 05/07/21 10:17 Ur Leukocyte Esterase Negative (Negative) 05/07/21 10:17 Urine RBC None /hpf (0-2) 05/07/21 10:17 Urine WBC None /hpf (0-5) 05/07/21 10:17 Ur Squamous Epith Cells 0-4 /hpf (0-5) H 05/07/21 10:17 Amorphous Sediment Not Reportable 05/07/21 10:17 Urine Bacteria 1+ /hpf (NONE) H 05/07/21 10:17 Urine Mucus 1+ /hpf 05/07/21 10:17 Discharge Plan Discharge Patient Disposition: Home Clinical Impression: Chronic GERD, Autistic disorder, Suicidal ideations Condition: Stable Prescriptions: New pantoprazole 40 mg tablet,delayed release (DR/EC) 40 mg PO BID 14 Days Qty: 28 0RF Discontinued omeprazole 20 mg capsule,delayed release(DR/EC) 40 mg PO BID 0RF No Action trazodone 50 mg tablet 50 mg PO .HS PRN (Reason: sleep) Qty: 30 2RF Rx Instructions: Give at 9PM acetaminophen [Tylenol Extra Strength] 500 mg tablet 500 mg PO TID PRN (Reason: pain) 0RF fluoxetine [Prozac] 20 mg capsule 20 mg PO DAILY Qty: 30 2RF Rx Instructions: Give at 9PM ziprasidone HCl [Geodon] 40 mg capsule 40 mg PO .at bed Qty: 30 2RF Rx Instructions: give with food (meal/snack) Give at 9pm multivitamin Tablet 1 tab PO DAILY Qty: 30 2RF Rx Instructions: Give at 9PM bupropion HCl [Wellbutrin XL] 300 mg tablet extended release 24 hr 300 mg PO QAM 30 Days Qty: 30 2RF Rx Instructions: Give at 9AM loratadine 10 mg Capsule 10 mg PO DAILY PRN (Reason: Allergic Symptoms) 0RF fluoride (sodium) [SF 5000 Plus] 1.1 % Cream 1 applic DENTAL DAILY 0RF naphazoline 0.012 % Drops 1 drp OPHTHALMIC (EYE) DAILY PRN (Reason: Dry Eyes) 0RF Discharge Orders: Discharge ED (Routine); Ordered 05/07/21 Ordered By: Gamal Parekh Referrals: Kenneth Bravo DO [Primary Care Provider] - Discharge Activity: Increase activity as tolerated Patient Instructions: Opioid Safety Coding Level of Care Code ED Inventory Worker for Chg Fwd Exam Comprehensive
--- NOTE | 2021-05-07 08:09 | CT_ITS ---
WS: [id number] CT ABDOMEN AND PELVIS WITH CONTRAST HISTORY: Severe abdominal pain. TECHNIQUE: Imaging performed of the abdomen and pelvis with IV contrast. Single phase imaging of the abdomen. Coronal and sagittal reformats are submitted. All CT scans at [facility] use at [address] one of these dose optimization techniques: automated exposure control; mA and/or kV adjustment per patient size (includes targeted exams where dose is matched to clinical indication); or iterative re construction. IV CONTRAST: Omnipaque 300; 95 mL IV. Oral contrast: No DLP: 2016.78 mGy.cm COMPARISON: 12/27/2020 Lower thorax: Lung bases are clear. Heart is normal size. No hiatal hernia. Liver/biliary system: Normal size with no intrahepatic dilatation. Gallbladder: Normal. No gallstones or wall thickening. No pericholecystic fluid. Pancreas: Normal size pancreas and pancreatic duct. No adjacent inflammation. Spleen: Normal size spleen. No mass or infarct. Adrenal glands: Normal. Right kidney: Normal. Left kidney: Normal. Aorta: Normal. Lymphadenopathy: None. Free fluid: None. GI tract: Normal appendix. Minimally distended stomach is negative. No small bowel or colon obstructi on. No mucosal thickening or pericolonic stranding. Abdominal wall: Unremarkable abdominal wall. No hernia. Pelvis: No free fluid or adenopathy within the pelvis. Bones: Schmorl's nodes throughout the lumbar spine. No acute fracture. There is mild sclerosis and se rpiginous line in the RIGHT femoral head consistent with developing osteonecrosis. This finding is ne w since 12/27/2020. CT/CT abdomen pelvis w con* [id number] IMPRESSION: 1. Negative CT abdomen and pelvis. 2. Suspect early changes of developing osteonecrosis at the RIGHT femoral head .
--- NOTE | 2021-05-07 08:18 | PC.NURSE ---
Patient states he has been having abdominal pain for a long time, he has an appointment on 30 of May with GI doctor, he states he has been vomiting, last time he vomited was 3 hours ago. Patient lashed out at supportive employment case manager this morning. Patient appears anxious but is cooperative. Belongings being placed in cabinet, sitter at bedside, supportive employment case manager at bedside. Patient denies SI Or HI.
--- NOTE | 2021-05-07 08:41 | PC.NURSE ---
Patient tolerated IV insertion. Patient states GI cocktail does not work well for him. Patient in bed, urinal at bedside for him to give sample. Sitter and returned case inspector at bedside.
[2021-05-07 08:47] LABS: Basophils % 0.6 %; Eosinophils # 0.1 10^3/uL (0.0-0.8); Eosinophils % 1.1 %; Hemoglobin 15.2 g/dL (11.7-16.6); Lymphocytes # 1.1 10^3/uL (0.8-4.8); Lymphocytes % 17.1 %; Mean Corpuscular HGB Conc 34.5 g/dL (30.0-36.0); Mean Corpuscular Hemoglobin 30.6 pg (28.0-34.0); Mean Corpuscular Volume 88.7 fl (80-94); Mean Platelet Volume 9.8 fL (7.4-10.4); Monocytes # 0.5 10^3/uL (0.2-0.9); Monocytes % 7.6 %; Neutrophils # 4.54 10^3/uL (1.8-7.7); Neutrophils % 73.1 %; Nucleated Red Blood Cells % 0 %; Platelet Count 164 10^3/cmm (130-400); Red Blood Count 4.96 10^6/uL (4.1-5.3); Red Cell Distribution Width 12.2 % (12.1-15.1); White Blood Count 6.2 10^3/uL (4.0-10.0)
[2021-05-07] MEDS: iohexol 300 mg/mL 100 mL Btl IV (08:55)
[2021-05-07] MEDS: lidocaine 2% viscous 15 ML, aluminum-mag hydrox-simethicon 30 ML, sucralfate oral liq 1 GM PO (09:07)
[2021-05-07 09:10] LABS: Alanine Aminotransferase 65 U/L (0-41); Albumin Level 3.8 g/dL (3.5-5.2); Alkaline Phosphatase 112 IU/L (40-130); Aspartate Amino Transferase 27 U/L (0-40); Blood Urea Nitrogen 13 mg/dL (6-20); Calcium 9.3 mg/dL (8.5-10.5); Carbon Dioxide 22 mmol/L (22-29); Chloride 109 mmol/L (98-107); Globulin 2.8 g/dL (1.3-4.6); Glucose 126 mg/dL (65-115); Osmolality Calculated 294 mOsm/kg (285-295); Sodium 141 mmol/L (136-145); Total Bilirubin 0.4 mg/dL (0.15-1.2); Total Protein 6.6 g/dL (6.6-8.7)
--- NOTE | 2021-05-07 09:38 | PC.NURSE ---
Patient in bed, attempted to give urine sample, unable to give sample. Provider gave verbal order to give patient oral fluids to give urine sample. Patient drinking water at this time.
[2021-05-07 10:44] LABS: Add Urine Culture? No; Add Urine Microscopic? YES; Bacteria Urine 1+ /hpf; Bilirubin Urine Neg (Negative); Blood Urine Neg (Negative); Glucose Urine UA Norm (Normal); Ketones Urine Negative (Negative); Leukocyte Esterase Urine Negative (Negative); Mucus Urine 1+ /hpf; Nitrate Urine Negative (Negative); Protein Urine Trace (Negative); Squamous Epithelial Cell Urine 0-4 /hpf (0-5); Sulfosalicylic Acid Urine Negative (Negative); Urine Appearance Clear (CLEAR); Urine Color Yellow (Yellow); Urobilinogen Urine 1 mg/dL (Negative); pH Urine 8 (5-7)
--- NOTE | 2021-05-07 11:07 | PC.NURSE ---
Patient states the medication helped my stomach so much, I was able to sleep Patient calm and cooperative at this time. Patient sitter at bedside.
--- NOTE | 2021-05-07 12:46 | PC.NURSE ---
Patient's community case manager given discharge instructions as well as the patient. Patient prescription given to community case manager. Patient alert, calm and cooperative with stable vitals. Patient IV removed, site appropriate. Belongings with patient and community case manager.
== END 2021-05-07 12:56 | disposition home or self-care (01) ==
PROVIDERS: Emergency Provider Family Medicine; PCP Internal Medicine
DX: K21.9 Gastro-esophageal reflux disease without esophagitis (principal); F84.0 Autistic disorder; R45.851 Suicidal ideations
CPT/HCPCS: 74177; 80053; 81001; 85025; 99284; Q9967

== ENCOUNTER 2021-05-08 21:04 | Emergency (ER) | payer MEDICAID, SELFPAY ==
[2021-05-08 21:05] VITALS: BP 145/84; PULSE 86; RESP 16; TEMP 36.6; O2SAT 98; BMI 28.5
--- NOTE | 2021-05-08 21:06 | ED.C_ITS ---
HPI - Psych General: Chief Complaint: Psychiatric Symptoms Stated Complaint: SELF HARM Time Seen by Provider: 05/08/21 21:06 History of Present Illness: Mr. Colindres is a 26-year-old gentleman with significant past medical history of psychiatric disorder, autistic disorder, abdominal pain who presents to the emergency department for reported stress and self-harm behavior. The patient was seen in the emergency department yesterday and had evaluation for his abdominal pain. Due to this abdominal pain he reports difficulty sleeping and increased stress. This has been going on for some time and has not acutely changed in any way. He reports frustration when he went home and kicked an object at home which led to toe pain. He was evaluated at [facility] and reportedly had negative x-ray. He subsequently cut himself due to the stress on his arm with glass earlier today. He endorses that this was to help with stress and he hoped that it would help with his abdominal pain. He denies suicidal intent or ideation. He otherwise has been at his baseline health. No other specific changes in health, exacerbating, or alleviating factors identified. Onset (ago): week(s) Duration: changing over time History of same: Yes Review of Systems General: Reports: 10 or more systems reviewed and unremarkable except in HPI and below PFSH ED PFSH: Medical History Autistic disorder Disruptive mood dysregulation disorder Major depressive disorder, recurrent, moderate Psychiatric care Surgical History History of foot surgery right- 2020 Social History Smoking and tobacco status: never smoked Physical Exam Const: COMMON NORMALS: alert GENERAL APPEARANCE: cooperative and well developed HENMT: COMMON NORMALS: normocephalic and atraumatic HEAD & SCALP: normocephalic and atraumatic Eye: COMMON NORMALS: conjunctivae normal CONJUNCTIVA: Yes conjunctivae normal SCLERA: sclerae normal Neck/C-Spine: COMMON NORMALS: supple GENERAL: Yes trachea midline Resp: COMMON NORMALS: normal respiratory effort EFFORT & INSPECTION: Yes able to speak in complete sentences Cardio: COMMON NORMALS: regular rate and regular rhythm RATE: regular rate RHYTHM: regular rhythm GI: COMMON NORMALS: Soft to palpation PALPATION: Yes Soft to palpation and No Tenderness to palpation present (GI) PERCUSSION: normal to percussion Extremity: NARRATIVE EXTREMITY EXAM: Left upper extremity, superficial lacerations transversely oriented not requiring intervention. Not up-to-date on tetanus. GENERAL: Yes normal exam except as noted and No edema Neuro: COMMON NORMALS: moves all extremities SENSORIUM/ORIENTATION: Yes alert and No Orientation impaired Psych: COMMON NORMALS: mental status grossly normal, Normal thought process present and cooperative THOUGHT PROCESS: Normal thought process present Course ED course: - Patient was seen and evaluated by me at bedside -Vital signs obtained - Initial evaluation notable for exam as above -Tdap updated. GI cocktail ordered. - Labs notable for no significant lab abnormalities requiring intervention, there are some chronic abnormalities. -X-ray read reviewed. - Upon serial reexamination after treatment the patient was similar -Discussed with Dr. Howell who performed teleconsult. Patient can safely be discharged, primary concern is sleep. In discussion with Dr. Howell patient be given a short course of medications for sleep. First dose here given that pharmacies are closed. - Based on patient history, evaluation, and testing as interpreted the most likely cause of the patient's condition is multifactorial - The results of ED evaluation were discussed with the patient including prescriptions and/or symptomatic cares (if applicable) including appropriate and responsible use, followup plan, and return precautions. The patient verbalized understanding and felt safe for discharge. - Patient discharged in satisfactory condition. Note: Click bubbles or prepopulated brennan in note writing are used for assistance with data collection and billing and are inherently more limited than narrative and other text portions of this note. Please use narrative for additional clinical history and defer to narrative/free test for any case of contradictory information. If information appears in only free text or click bubble it should be considered present or absent as reported. Please contact note typewriter ribbon winder for clarifications of clinical information or contradictory information. MDM is a brief summary, contradictory or erroneous seeming information should be clarified and full note should be reviewed. Vital Signs: Vital signs: Vital Signs Temperature 97.8 F 05/08/21 21:05 Pulse Rate 102 H 05/08/21 23:20 Respiratory Rate 18 05/08/21 23:20 Blood Pressure 133/90 05/08/21 23:20 Pulse Oximetry 94 05/08/21 23:20 MDM - Psych Medical Decision Making 26-year-old gentleman psychiatric disorder and autism as well as chronic abdominal pain presenting with self-harm behavior. Denies SI or HI. Sleep disturbance related to chronic GI symptoms. Recent CT performed and no in dication for repeat. Dr. Howell of the psychiatry service performed, consult. Patient can be safely discharged with sleep aid medication changes. Medical Records I reviewed the patient's medical records. Lab Data I reviewed the patient's lab results. : 05/08/21 21:10 05/08/21 21:10 Laboratory Results WBC 7.8 10^3/uL (4.0-10.0) 05/08/21 21:10 RBC 5.15 10^6/uL (4.1-5.3) 05/08/21 21:10 Hgb 15.4 g/dL (11.7-16.6) 05/08/21 21:10 Hct 46.0 % (42.0-52.0) 05/08/21 21:10 MCV 89.3 fl (80-94) 05/08/21 21:10 MCH 29.9 pg (28.0-34.0) 05/08/21 21:10 MCHC 33.5 g/dL (30.0-36.0) 05/08/21 21:10 RDW 11.9 % (12.1-15.1) L 05/08/21 21:10 Plt Count 183 10^3/cmm (130-400) 05/08/21 21:10 MPV 10.3 fL (7.4-10.4) 05/08/21 21:10 Neut % (Auto) 61.6 % 05/08/21 21:10 Lymph % (Auto) 27.0 % 05/08/21 21:10 [place] % (Auto) 8.7 % 05/08/21 21:10 Eos % (Auto) 1.8 % 05/08/21 21:10 Baso % (Auto) 0.5 % 05/08/21 21:10 Neut # (Auto) 4.79 10^3/uL (1.8-7.7) 05/08/21 21:10 Lymph # (Auto) 2.1 10^3/uL (0.8-4.8) 05/08/21 21:10 [place] # (Auto) 0.7 10^3/uL (0.2-0.9) 05/08/21 21:10 Eos # (Auto) 0.1 10^3/uL (0.0-0.8) 05/08/21 21:10 Baso # (Auto) 0.0 10^3/uL (0.0-0.1) 05/08/21 21:10 Nucleated RBC % (auto) 0 % 05/08/21 21:10 Nucleated RBCs # 0.0 /100WBC 05/08/21 21:10 Sodium 141 mmol/L (136-145) 05/08/21 21:10 Potassium 3.8 mmol/L (3.5-5.1) 05/08/21 21:10 Chloride 106 mmol/L (98-107) 05/08/21 21:10 Carbon Dioxide 24 mmol/L (22-29) 05/08/21 21:10 Anion Gap 14.8 (5-19) 05/08/21 21:10 BUN 12 mg/dL (6-20) 05/08/21 21:10 Creatinine 0.8 mg/dL (0.7-1.2) 05/08/21 21:10 GFR Calculation 116.0 mL/min (90-130) 05/08/21 21:10 Glucose 96 mg/dL (65-115) 05/08/21 21:10 Calculated Osmolality 292 mOsm/kg (285-295) 05/08/21 21:10 Calcium 9.6 mg/dL (8.5-10.5) 05/08/21 21:10 Total Bilirubin 0.4 mg/dL (0.15-1.2) 05/08/21 21:10 AST 23 U/L (0-40) 05/08/21 21:10 ALT 63 U/L (0-41) H 05/08/21 21:10 Alkaline Phosphatase 120 IU/L (40-130) 05/08/21 21:10 Total Protein 6.6 g/dL (6.6-8.7) 05/08/21 21:10 Albumin 4.2 g/dL (3.5-5.2) 05/08/21 21:10 Globulin 2.4 g/dL (1.3-4.6) 05/08/21 21:10 TSH 1.36 uIU/mL (0.27-4.20) 05/08/21 21:10 Salicylates < 0.3 mg/dL (3-10) L 05/08/21 21:10 Acetaminophen < 5.0 ug/mL (10-30) L 05/08/21 21:10 Ethyl Alcohol < 10 mg/dL (0-10) 05/08/21 21:10 Discharge Plan Discharge Patient Disposition: Home Clinical Impression: Disturbance, sleep, Abdominal pain, Deliberate self-cutting Condition: Stable Prescriptions: New Seroquel 100 mg tablet 100 mg PO .nightly Qty: 5 0RF Rx Instructions: starting 05/09/2021 trazodone 100 mg tablet 100 mg PO .nightly Qty: 5 0RF Rx Instructions: after completion then resume normal dosage of 50 mg nightly No Action trazodone 50 mg tablet 50 mg PO .HS PRN (Reason: sleep) Qty: 30 2RF Rx Instructions: Give at 9PM acetaminophen [Tylenol Extra Strength] 500 mg tablet 500 mg PO TID PRN (Reason: pain) 0RF fluoxetine [Prozac] 20 mg capsule 20 mg PO DAILY Qty: 30 2RF Rx Instructions: Give at 9PM ziprasidone HCl [Geodon] 40 mg capsule 40 mg PO .at bed Qty: 30 2RF Rx Instructions: give with food (meal/snack) Give at 9pm multivitamin Tablet 1 tab PO DAILY Qty: 30 2RF Rx Instructions: Give at 9PM bupropion HCl [Wellbutrin XL] 300 mg tablet extended release 24 hr 300 mg PO QAM 30 Days Qty: 30 2RF Rx Instructions: Give at 9AM loratadine 10 mg Capsule 10 mg PO DAILY PRN (Reason: Allergic Symptoms) 0RF fluoride (sodium) [SF 5000 Plus] 1.1 % Cream 1 applic DENTAL DAILY 0RF naphazoline 0.012 % Drops 1 drp OPHTHALMIC (EYE) DAILY PRN (Reason: Dry Eyes) 0RF pantoprazole 40 mg tablet,delayed release (DR/EC) 40 mg PO BID 14 Days Qty: 28 0RF Discharge Orders: Discharge ED (Routine); Ordered 05/08/21 Ordered By: Lucas Mccoy Referrals: Kenneth Bravo, [Primary Care Provider] - Discharge Diet: Usual diet Discharge Activity: Resume usual activity Patient Instructions: Abdominal Pain (ED), Insomnia (ED), Self-Injury Activity Restrictions/Additional Instructions: Thank you for visiting the emergency department. You were seen and evaluated for stress, cutting, and sleep disturbance. In discussion with psychiatry you will be initiated on a short course of Seroquel at night, in addition increase your trazodone from 50 mg to 100 mg. Please follow-up with your primary care provider and psychiatric care provider. Return to the emergency department for worsening symptoms, repeated self-harm, suicidal ideation, homicidal ideation, or anything else that you are concerned about and feel needs emergency department evaluation. Coding Level of Care Code ED Foot Cutter for Alva Che
--- NOTE | 2021-05-08 21:09 | PC.NURSE ---
Addendum to triage note, patient sts his reason for coming in is because he knows he is dealing with his stress the wrong way by doing the cutting and wants help with that.
[2021-05-08 21:36] LABS: Basophils % 0.5 %; Eosinophils # 0.1 10^3/uL (0.0-0.8); Eosinophils % 1.8 %; Hemoglobin 15.4 g/dL (11.7-16.6); Lymphocytes # 2.1 10^3/uL (0.8-4.8); Mean Corpuscular HGB Conc 33.5 g/dL (30.0-36.0); Mean Corpuscular Hemoglobin 29.9 pg (28.0-34.0); Mean Corpuscular Volume 89.3 fl (80-94); Mean Platelet Volume 10.3 fL (7.4-10.4); Monocytes # 0.7 10^3/uL (0.2-0.9); Monocytes % 8.7 %; Neutrophils # 4.79 10^3/uL (1.8-7.7); Neutrophils % 61.6 %; Nucleated Red Blood Cells % 0 %; Platelet Count 183 10^3/cmm (130-400); Red Blood Count 5.15 10^6/uL (4.1-5.3); Red Cell Distribution Width 11.9 % (12.1-15.1); White Blood Count 7.8 10^3/uL (4.0-10.0)
[2021-05-08 21:38] VITALS: BP 140/95; PULSE 88; RESP 18; O2SAT 93
[2021-05-08 22:08] VITALS: BP 122/76; PULSE 91; RESP 18; O2SAT 94
[2021-05-08 22:11] LABS: Alanine Aminotransferase 63 U/L (0-41); Albumin Level 4.2 g/dL (3.5-5.2); Alkaline Phosphatase 120 IU/L (40-130); Anion Gap 14.8 (5-19); Aspartate Amino Transferase 23 U/L (0-40); Blood Urea Nitrogen 12 mg/dL (6-20); Calcium 9.6 mg/dL (8.5-10.5); Carbon Dioxide 24 mmol/L (22-29); Chloride 106 mmol/L (98-107); Globulin 2.4 g/dL (1.3-4.6); Glucose 96 mg/dL (65-115); Osmolality Calculated 292 mOsm/kg (285-295); Potassium 3.8 mmol/L (3.5-5.1); Sodium 141 mmol/L (136-145); Thyroid Stimulating Hormone 1.36 uIU/mL (0.27-4.20); Total Bilirubin 0.4 mg/dL (0.15-1.2); Total Protein 6.6 g/dL (6.6-8.7)
[2021-05-08 22:13] LABS: Acetaminophen < 5.0 ug/mL (10-30); Alcohol Level < 10 mg/dL (0-10); Salicylate < 0.3 mg/dL (3-10)
[2021-05-08] MEDS: lidocaine 2% viscous 15 ML, aluminum-mag hydrox-simethicon 30 ML, sucralfate oral liq 1 GM PO (22:29)
[2021-05-08] MEDS: tetanus-dipt-pertussis 0.5 mL SDV IM (22:35)
[2021-05-08 22:38] VITALS: BP 154/88; PULSE 97; RESP 18; O2SAT 92
[2021-05-08 23:08] VITALS: BP 131/82; PULSE 98; RESP 18; O2SAT 93
[2021-05-08] MEDS: quetiapine 100 mg Tablet PO (23:11)
[2021-05-08 23:20] VITALS: BP 133/90; PULSE 102; RESP 18; O2SAT 94
== END 2021-05-08 23:22 | disposition home or self-care (01) ==
PROVIDERS: Emergency Provider Emergency Medicine; PCP Internal Medicine
DX: G47.9 Sleep disorder, unspecified (principal); R10.9 Unspecified abdominal pain; S41.112A Laceration without foreign body of left upper arm, initial encounter; X78.9XXA Intentional self-harm by unspecified sharp object, initial encounter; R45.88 Nonsuicidal self-harm; F84.0 Autistic disorder
CPT/HCPCS: 80053; 80307; 84443; 85025; 90471; 90715; 99283

== ENCOUNTER 2021-05-15 21:10 | Emergency (ER) | payer MEDICAID, SELFPAY ==
[2021-05-15 21:11] VITALS: BP 162/76; PULSE 91; RESP 17; TEMP 36.8; O2SAT 96; BMI 28.5
--- NOTE | 2021-05-15 21:17 | ED_ITS ---
Documented by User: Lucas Mccoy MD 05/19/21 00:47 HPI - Abdominal Pain General: Chief Complaint: Abdominal Pain Stated Complaint: ABD PAIN Time Seen by Provider: 05/15/21 21:16 History of Present Illness: Mr. Colindres is a 26-year-old gentleman with signifi cant past medical history of psychiatric disorder and autistic disorder, chronic abdominal pain presented to the emergency department due to abdominal pain. He reports pain quality, location, and associated symptoms are largely unchanged however he thinks this is worse and is preventing him from sleeping well. He has had one episode of vomiting which was nonbloody today. Denies change in bowel habits. Symptoms are moderate in intensity and not improved with current medication regimen. He endorses sometimes being related to eating and sometimes being related to not eating. No other specific changes in health, exacerbating, or alleviating factors identified. Pertinent past history: other Onset (ago): month(s) Pain Consistency: intermittent Location: Epigastric Severity: moderate Quality: aching and burning Associated Symptoms: Reports nausea and vomiting Review of Systems General: Reports: 10 or more systems reviewed and unremarkable except in HPI and below GI: Reports: nausea and vomiting [facility] ED PFSH: Medical History Autistic disorder Disruptive mood dysregulation disorder Major depressive disorder, recurrent, moderate Psychiatric care Surgical History History of foot surgery right- 2020 Social History Smoking and tobacco status: never smoked Physical Exam Const: COMMON NORMALS: alert GENERAL APPEARANCE: cooperative and well developed HENMT: COMMON NORMALS: normocephalic and atraumatic HEAD & SCALP: normocephalic and atraumatic Eye: COMMON NORMALS: conjunctivae normal CONJUNCTIVA: Yes conjunctivae normal SCLERA: sclerae normal Neck/C-Spine: COMMON NORMALS: supple GENERAL: Yes trachea midline Resp: COMMON NORMALS: normal respiratory effort EFFORT & INSPECTION: Yes able to speak in complete sentences Cardio: COMMON NORMALS: regular rate and regular rhythm RATE: regular rate RHYTHM: regular rhythm GI: COMMON NORMALS: Soft to palpation PALPATION: Yes Soft to palpation, Yes Tenderness to palpation present (GI), No Guarding due to palpation present (GI), No Rigid due to palpation and No Rebound tenderness present PERCUSSION: normal to percussion Extremity: GENERAL: Yes normal exam except as noted and No edema Neuro: COMMON NORMALS: moves all extremities SENSORIUM/ORIENTATION: Yes alert and No Orientation impaired Psych: COMMON NORMALS: mental status grossly normal and Normal thought process present THOUGHT PROCESS: Normal thought process present Course ED course: - Patient was seen and evaluated by me at bedside - Patient placed on cardiac monitors, IV access obtained - Initial evaluation notable for exam as above, nontoxic. - Labs personally interpreted by me - Symptom treatment ordered - Labs notable for no leukocytosis, normal hemoglobin. Mild transaminitis which is new for the patient. - Care handed off to overnight ED physician pending results of ultrasound. Vital Signs: Vital signs: Vital Signs Temperature 98.2 F 05/15/21 21:29 Pulse Rate 80 05/16/21 00:12 Respiratory Rate 18 05/16/21 00:12 Blood Pressure 138/71 05/16/21 00:12 Pulse Oximetry 96 05/15/21 21:29 MDM - Abdominal Pain Medical Records I reviewed the patient's medical records. Lab Data I reviewed the patient's lab results. : 05/15/21 21:22 05/15/21 21:22 Labs/Radiology: Radiology Impressions Abdomen X-Ray 05/15/21 21:26 IMPRESSION: Mild constipation. Abdomen Ultrasound 05/15/21 22:19 IMPRESSION: Examination limited by body habitus. No gross abnormality. Laboratory Results WBC 6.5 10^3/uL (4.0-10.0) 05/15/21 21: RBC 5.24 10^6/uL (4.1-5.3) 05/15/21 21: Hgb 16.0 g/dL (11.7-16.6) 05/15/21 21: Hct 47.4 % (42.0-52.0) 05/15/21 21: MCV 90.5 fl (80-94) 05/15/21 21: MCH 30.5 pg (28.0-34.0) 05/15/21: MCHC 33.8 g/dL (30.0-36.0) 05/15/21: RDW 11.9 % (12.1-15.1) L 05/15/21 21: Plt Count 172 10^3/cmm (130-400) 05/15/21 21: MPV 10.0 fL (7.4-10.4) 05/15/21 21:22 Neut % (Auto) 61.5 % 05/15/21 21: Lymph % (Auto) 26.5 % 05/15/21 21: [place] % (Auto) 8.8 % 05/15/21 21: Eos % (Auto) 1.8 % 05/15/21 21:22 Baso % (Auto) 0.9 % 05/15/21 21:22 Neut # (Auto) 4.00 10^3/uL (1.8-7.7) 05/15/21 21: Lymph # (Auto) 1.7 10^3/uL (0.8-4.8) 05/15/21 21: [place] # (Auto) 0.6 10^3/uL (0.2-0.9) 05/15/21 21: Eos # (Auto) 0.1 10^3/uL (0.0-0.8) 05/15/21 21: Baso # (Auto) 0.1 10^3/uL (0.0-0.1) 05/15/21 21: Nucleated RBC % (auto) 0 % 05/15/21 21: Nucleated RBCs # 0.0 /100WBC 05/15/21 21:22 Sodium 140 mmol/L (136-145) 05/15/21 21: Potassium 4.5 mmol/L (3.5-5.1) 05/15/21 21: Chloride 104 mmol/L (98-107) 05/15/21 21: Carbon Dioxide 27 mmol/L (22-29) 05/15/21 21:22 Anion Gap 13.5 (5-19) 05/15/21 21:22 BUN 14 mg/dL (6-20) 05/15/21 21:22 Creatinine 0.8 mg/dL (0.7-1.2) 05/15/21 21:22 GFR Calculation 116.0 mL/min (90-130) 05/15/21 21:22 Glucose 153 mg/dL (65-115) H 05/15/21 21:22 Calculated Osmolality 294 mOsm/kg (285-295) 05/15/21 21: Calcium 9.9 mg/dL (8.5-10.5) 05/15/21 21: Total Bilirubin 0.4 mg/dL (0.15-1.2) 05/15/21 21:22 AST 69 U/L (0-40) H 05/15/21 21: ALT 159 U/L (0-41) H 05/15/21 21: Alkaline Phosphatase 147 IU/L (40-130) H 05/15/21 21: Total Protein 7.4 g/dL (6.6-8.7) 05/15/21 21: Albumin 4.6 g/dL (3.5-5.2) 05/15/21 21: Globulin 2.8 g/dL (1.3-4.6) 05/15/21 21: Lipase 25 U/L (13-60) 05/15/21 21: Urine Color Yellow (Yellow) 05/15/21 21:50 Urine Appearance Clear (CLEAR) 05/15/21 21:50 Urine pH 7 (5-7) 05/15/21 21:50 Ur Specific [place] 1.020 (1.005-1.030) 05/15/21 21:50 Urine Protein Neg (Negative) 05/15/21 21:50 Urine Glucose (UA) Norm (Normal) 05/15/21 21:50 Urine Ketones Negative (Negative) 05/15/21 21:50 Urine Blood Neg (Negative) 05/15/21 21:50 Urine Nitrate Negative (Negative) 05/15/21 21:50 Urine Bilirubin Neg (Negative) 05/15/21 21:50 Urine Urobilinogen 1 mg/dL (Negative) H 05/15/21 21:50 Ur Leukocyte Esterase Negative (Negative) 05/15/21 21:50 Hepatitis A IgM Ab TNP 05/15/21 22:28 Hep Bs Antigen Non-reactive (Nonreactive) 05/15/21 22:28 Hep B Core IgM Ab Non-reactive (Nonreactive) 05/15/21 22:28 Hepatitis C Antibody Non-reactive (Nonreactive) 05/15/21 22:28 Discharge Plan Discharge Patient Disposition: Home Clinical Impression: Abdominal pain, Vomiting, Transaminitis Condition: Stable Prescriptions: New ondansetron 4 mg tablet,disintegrating 4 mg PO Q6H PRN (Reason: nausea and vomiting) Qty: 14 0RF No Action trazodone 50 mg tablet 50 mg PO .HS PRN (Reason: sleep) Qty: 30 2RF Rx Instructions: Give at 9PM acetaminophen [Tylenol Extra Strength] 500 mg tablet 500 mg PO TID PRN (Reason: pain) 0RF fluoxetine [Prozac] 20 mg capsule 20 mg PO DAILY Qty: 30 2RF Rx Instructions: Give at 9PM ziprasidone HCl [Geodon] 40 mg capsule 40 mg PO .at bed Qty: 30 2RF Rx Instructions: give with food (meal/snack) Give at 9pm multivitamin Tablet 1 tab PO DAILY Qty: 30 2RF Rx Instructions: Give at 9PM bupropion HCl [Wellbutrin XL] 300 mg tablet extended release 24 hr 300 mg PO QAM 30 Days Qty: 30 2RF Rx Instructions: Give at 9AM loratadine 10 mg Capsule 10 mg PO DAILY PRN (Reason: Allergic Symptoms) 0RF fluoride (sodium) [SF 5000 Plus] 1.1 % Cream 1 applic DENTAL DAILY 0RF naphazoline 0.012 % Drops 1 drp OPHTHALMIC (EYE) DAILY PRN (Reason: Dry Eyes) 0RF pantoprazole 40 mg tablet,delayed release (DR/EC) 40 mg PO BID 14 Days Qty: 28 0RF Seroquel 100 mg tablet 100 mg PO .nightly Qty: 5 0RF Rx Instructions: starting 05/09/2021 trazodone 100 mg tablet 100 mg PO .nightly Qty: 5 0RF Rx Instructions: after completion then resume normal dosage of 50 mg nightly Discharge Orders: Discharge ED (Routine); Ordered 05/15/21 Ordered By: Aga Berry Referrals: Kenneth Bravo DO [Primary Care Provider] - 1-3 days Discharge Diet: Advance as tolerated, Low Fat and Clear Liquid Discharge Activity: Increase activity as tolerated Patient Instructions: Abdominal Pain (ED) Activity Restrictions/Additional Instructions: Thank you for visiting the emergency department. You were seen and evaluated for abdominal pain. The exact cause of your symptoms is unclear though does not require hospitalization at this time. I recommend continued outpatient follow- up including your scheduled procedure with Dr. Damon. Please continue pantoprazole. Please follow-up with your primary care provider. Return to the emergency department as needed. Coding Level of Care Code ED Journalism Intern for Chg Fwd Exam Comprehensive Documented by User: Aga Berry MD 05/16/21 00:20 HPI - Abdominal Pain General: Chief Complaint: Abdominal Pain Stated Complaint: ABD PAIN Time Seen by Provider: 05/15/21 21:16 [facility] ED PFSH: Medical History Autistic disorder Disruptive mood dysregulation disorder Major depressive disorder, recurrent, moderate Psychiatric care Surgical History History of foot surgery right- 2020 Social History Smoking and tobacco status: never smoked Course Vital Signs: Vital signs: Vital Signs Temperature 98.2 F 05/15/21 21:29 Pulse Rate 80 05/16/21 00:12 Respiratory Rate 18 05/16/21 00:12 Blood Pressure 138/71 05/16/21 00:12 Pulse Oximetry 96 05/15/21 21:29 MDM - Abdominal Pain Medical Decision Making Took patient over from Dr. Morales patient's ultrasound of his gallbladder showed no acute abnormalities here he does have a mild transaminitis we will place him on nausea medicine he is to follow-up with PCP and have his labs redrawn return if worsening. Lab Data : 05/15/21 21:22 05/15/21 21:22 Labs/Radiology: Radiology Impressions Abdomen X-Ray 05/15/21 21:26 IMPRESSION: Mild constipation. Abdomen Ultrasound 05/15/21 22:19 IMPRESSION: Examination limited by body habitus. No gross abnormality. Laboratory Results WBC 6.5 10^3/uL (4.0-10.0) 05/15/21 21:22 RBC 5.24 10^6/uL (4.1-5.3) 05/15/21 21: Hgb 16.0 g/dL (11.7-16.6) 05/15/21 21: Hct 47.4 % (42.0-52.0) 05/15/21 21: MCV 90.5 fl (80-94) 05/15/21 21: MCH 30.5 pg (28.0-34.0) 05/15/21 21: MCHC 33.8 g/dL (30.0-36.0) 05/15/21: RDW 11.9 % (12.1-15.1) L 05/15/21 21: Plt Count 172 10^3/cmm (130-400) 05/15/21 21: MPV 10.0 fL (7.4-10.4) 05/15/21 21: Neut % (Auto) 61.5 % 05/15/21 21: Lymph % (Auto) 26.5 % 05/15/21 21: [place] % (Auto) 8.8 % 05/15/21 21: Eos % (Auto) 1.8 % 05/15/21 21: Baso % (Auto) 0.9 % 05/15/21: Neut # (Auto) 4.00 10^3/uL (1.8-7.7) 05/15/21: Lymph # (Auto) 1.7 10^3/uL (0.8-4.8) 05/15/21 21: [place] # (Auto) 0.6 10^3/uL (0.2-0.9) 05/15/21 21: Eos # (Auto) 0.1 10^3/uL (0.0-0.8) 05/15/21: Baso # (Auto) 0.1 10^3/uL (0.0-0.1) 05/15/21: Nucleated RBC % (auto) 0 % 05/15/21: Nucleated RBCs # 0.0 /100WBC 05/15/21 21:22 Sodium 140 mmol/L (136-145) 05/15/21 21: Potassium 4.5 mmol/L (3.5-5.1) 04/07/22 21:22 Chloride 104 mmol/L (98-107) 05/15/21 21:22 Carbon Dioxide 27 mmol/L (22-29) 05/15/21 21:22 Anion Gap 13.5 (5-19) 05/15/21 21:22 BUN 14 mg/dL (6-20) 05/15/21 21:22 Creatinine 0.8 mg/dL (0.7-1.2) 05/15/21 21:22 GFR Calculation 116.0 mL/min (90-130) 05/15/21 21:22 Glucose 153 mg/dL (65-115) H 05/15/21 21:22 Calculated Osmolality 294 mOsm/kg (285-295) 05/15/21 21: Calcium 9.9 mg/dL (8.5-10.5) 05/15/21 21: Total Bilirubin 0.4 mg/dL (0.15-1.2) 05/15/21 21: AST 69 U/L (0-40) H 05/15/21 21: ALT 159 U/L (0-41) H 05/15/21 21:22 Alkaline Phosphatase 147 IU/L (40-130) H 05/15/21 21:22 Total Protein 7.4 g/dL (6.6-8.7) 05/15/21 21:22 Albumin 4.6 g/dL (3.5-5.2) 05/15/21 21: Globulin 2.8 g/dL (1.3-4.6) 05/15/21 21: Lipase 25 U/L (13-60) 05/15/21 21:22 Urine Color Yellow (Yellow) 05/15/21 21:50 Urine Appearance Clear (CLEAR) 05/15/21 21:50 Urine pH 7 (5-7) 05/15/21 21:50 Ur Specific [place] 1.020 (1.005-1.030) 05/15/21 21:50 Urine Protein Neg (Negative) 05/15/21 21:50 Urine Glucose (UA) Norm (Normal) 05/15/21 21:50 Urine Ketones Negative (Negative) 05/15/21 21:50 Urine Blood Neg (Negative) 05/15/21 21:50 Urine Nitrate Negative (Negative) 05/15/21 21:50 Urine Bilirubin Neg (Negative) 05/15/21 21:50 Urine Urobilinogen 1 mg/dL (Negative) H 05/15/21 21:50 Ur Leukocyte Esterase Negative (Negative) 05/15/21 21:50 Hepatitis A IgM Ab TNP 05/15/21 22:28 Hep Bs Antigen Non-reactive (Nonreactive) 05/15/21 22:28 Hep B Core IgM Ab Non-reactive (Nonreactive) 05/15/21 22:28 Hepatitis C Antibody Non-reactive (Nonreactive) 05/15/21 22:28 Discharge Plan Discharge Patient Disposition: Home Clinical Impression: Abdominal pain, Vomiting, Transaminitis Condition: Stable Prescriptions: New ondansetron 4 mg tablet,disintegrating 4 mg PO Q6H PRN (Reason: nausea and vomiting) Qty: 14 0RF No Action trazodone 50 mg tablet 50 mg PO .HS PRN (Reason: sleep) Qty: 30 2RF Rx Instructions: Give at 9PM acetaminophen [Tylenol Extra Strength] 500 mg tablet 500 mg PO TID PRN (Reason: pain) 0RF fluoxetine [Prozac] 20 mg capsule 20 mg PO DAILY Qty: 30 2RF Rx Instructions: Give at 9PM ziprasidone HCl [Geodon] 40 mg capsule 40 mg PO .at bed Qty: 30 2RF Rx Instructions: give with food (meal/snack) Give at 9pm multivitamin Tablet 1 tab PO DAILY Qty: 30 2RF Rx Instructions: Give at 9PM bupropion HCl [Wellbutrin XL] 300 mg tablet extended release 24 hr 300 mg PO QAM 30 Days Qty: 30 2RF Rx Instructions: Give at 9AM loratadine 10 mg Capsule 10 mg PO DAILY PRN (Reason: Allergic Symptoms) 0RF fluoride (sodium) [SF 5000 Plus] 1.1 % Cream 1 applic DENTAL DAILY 0RF naphazoline 0.012 % Drops 1 drp OPHTHALMIC (EYE) DAILY PRN (Reason: Dry Eyes) 0RF pantoprazole 40 mg tablet,delayed release (DR/EC) 40 mg PO BID 14 Days Qty: 28 0RF Seroquel 100 mg tablet 100 mg PO .nightly Qty: 5 0RF Rx Instructions: starting 05/09/2021 trazodone 100 mg tablet 100 mg PO .nightly Qty: 5 0RF Rx Instructions: after completion then resume normal dosage of 50 mg nightly Discharge Orders: Discharge ED (Routine); Ordered 05/15/21 Ordered By: Aga Berry Referrals: eKnneth Bravo DO [Primary Care Provider] - 1-3 days Discharge Diet: Advance as tolerated, Low Fat and Clear Liquid Discharge Activity: Increase activity as tolerated Patient Instructions: Abdominal Pain (ED) Activity Restrictions/Additional Instructions: Thank you for visiting the emergency department. You were seen and evaluated for abdominal pain. The exact cause of your symptoms is unclear though does not require hospitalization at this time. I recommend continued outpatient follow- up including your scheduled procedure with Dr. Damon. Please continue pantoprazole. Please follow-up with your primary care provider. Return to the emergency department as needed. Coding Level of Care Code ED Journalism Intern for Chg Fwd Exam Comprehensive
--- NOTE | 2021-05-15 21:26 | XRR_ITS ---
PROCEDURE INFORMATION: Exam: XR Abdomen Exam date and time: 05/15/2021 9:36 PM Age: 26 years old Clinical indication: Abdominal pain; Generalized TECHNIQUE: Imaging protocol: XR of the abdomen. Views: 2 Views. Upright and supine views. COMPARISON: CT abdomen pelvis w con* [id number] 05/07/2021 8:56 AM FINDINGS: Gastrointestinal tract: Mild amount of formed stool in the colon. Intraperitoneal space: Normal. No free air. Bones/joints: Unremarkable for age. XR/XR abdomen min 2V [id number] IMPRESSION: Mild constipation.
[2021-05-15 21:29] VITALS: BP 162/76; PULSE 86; RESP 15; TEMP 36.8; O2SAT 96
[2021-05-15 21:35] LABS: Basophils # 0.1 10^3/uL (0.0-0.1); Basophils % 0.9 %; Eosinophils # 0.1 10^3/uL (0.0-0.8); Eosinophils % 1.8 %; Hematocrit 47.4 % (42.0-52.0); Lymphocytes # 1.7 10^3/uL (0.8-4.8); Lymphocytes % 26.5 %; Mean Corpuscular HGB Conc 33.8 g/dL (30.0-36.0); Mean Corpuscular Hemoglobin 30.5 pg (28.0-34.0); Mean Corpuscular Volume 90.5 fl (80-94); Monocytes # 0.6 10^3/uL (0.2-0.9); Monocytes % 8.8 %; Neutrophils % 61.5 %; Nucleated Red Blood Cells % 0 %; Platelet Count 172 10^3/cmm (130-400); Red Blood Count 5.24 10^6/uL (4.1-5.3); Red Cell Distribution Width 11.9 % (12.1-15.1); White Blood Count 6.5 10^3/uL (4.0-10.0)
[2021-05-15] MEDS: pantoprazole 40 mg SDV IVP (21:45)
[2021-05-15] MEDS: ondansetron 2 mg/ML SDV 2 mL 4 MG IVP (21:45)
[2021-05-15 21:54] LABS: Albumin Level 4.6 g/dL (3.5-5.2); Chloride 104 mmol/L (98-107); Globulin 2.8 g/dL (1.3-4.6); Lipase 25 U/L (13-60); Potassium 4.5 mmol/L (3.5-5.1); Sodium 140 mmol/L (136-145); Total Protein 7.4 g/dL (6.6-8.7)
[2021-05-15 21:57] LABS: Add Urine Microscopic? NO; Charge for UA Resulting for Rev
[2021-05-15 21:57] LABS: Alanine Aminotransferase 159 U/L (0-41); Alkaline Phosphatase 147 IU/L (40-130); Glucose 153 mg/dL (65-115)
[2021-05-15] MEDS: lidocaine 2% viscous 15 ML, aluminum-mag hydrox-simethicon 30 ML, sucralfate oral liq 1 GM PO (22:00)
[2021-05-15 22:08] LABS: Anion Gap 13.5 (5-19); Aspartate Amino Transferase 69 U/L (0-40); Blood Urea Nitrogen 14 mg/dL (6-20); Calcium 9.9 mg/dL (8.5-10.5); Carbon Dioxide 27 mmol/L (22-29); Osmolality Calculated 294 mOsm/kg (285-295); Total Bilirubin 0.4 mg/dL (0.15-1.2)
[2021-05-15 22:14] LABS: Urine Appearance Clear (CLEAR); Urine Color Yellow (Yellow); pH Urine 7 (5-7)
[2021-05-15 22:15] LABS: Bilirubin Urine Neg (Negative); Blood Urine Neg (Negative); Glucose Urine UA Norm (Normal); Ketones Urine Negative (Negative); Leukocyte Esterase Urine Negative (Negative); Nitrate Urine Negative (Negative); Protein Urine Neg (Negative); Urobilinogen Urine 1 mg/dL (Negative)
[2021-05-15] MEDS: dicyclomine 10 mg Capsule PO (22:16)
--- NOTE | 2021-05-15 22:19 | USR_ITS ---
PROCEDURE INFORMATION: Exam: US Abdomen, Limited; Right Upper Quadrant Exam date and time: 05/15/2021 10:41 PM Age: 26 years old Clinical indication: Abdominal pain; Epigastric; Additional info: Eval ruq, biliary, abd pain, transaminitis TECHNIQUE: Imaging protocol: US abdomen. Real time ultrasound with image documentation. Limited exam focused on the right upper quadrant. COMPARISON: CT abdomen pelvis w con* [id number] 05/07/2021 8:56 AM FINDINGS: Liver: Poor visualization of the liver. Gallbladder: Normal. No gallstones. There is no gallbladder wall thickening. Common bile duct: Common duct not visualized. Pancreas: Pancreas is obscured by overlying bowel gas. Right kidney: Normal. No mass. No hydronephrosis. Other findings: Examination limited by body habitus. US/US abdomen limited [id number] IMPRESSION: Examination limited by body habitus. No gross abnormality.
[2021-05-15 23:23] LABS: Hepatitis B Core IgM Non-Reactive (Nonreactive); Hepatitis B Surface Antigen Non-Reactive (Nonreactive); Hepatitis C Virus Antibody Non-Reactive (Nonreactive)
[2021-05-16 00:12] VITALS: BP 138/71; PULSE 80; RESP 18
== END 2021-05-16 00:17 | disposition home or self-care (01) ==
PROVIDERS: Emergency Medicine; Emergency Provider Emergency Medicine; PCP Internal Medicine
DX: R10.13 Epigastric pain (principal); R11.10 Vomiting, unspecified; R74.01 Elevation of levels of liver transaminase levels
CPT/HCPCS: 74019; 76705; 80053; 80074; 81003; 83690; 85025; 96374; 96375; 99283; C9113; J2405

== ENCOUNTER → 2021-05-23 09:22 | Outpatient (BNVA) | payer MEDICAID, SELFPAY | PROVIDERS: PCP Internal Medicine; Visit Provider Nurse Practitioner | DX: F33.1 Major depressive disorder, recurrent, moderate (principal); F84.0 Autistic disorder | CPT/HCPCS: 99214 ==

== ENCOUNTER 2021-05-23 17:06 | Emergency (ER) | payer MEDICAID, SELFPAY ==
[2021-05-23 17:12] VITALS: BMI 28.5
[2021-05-23 17:51] LABS: Basophils # 0.1 10^3/uL (0.0-0.1); Basophils % 0.9 %; Eosinophils # 0.1 10^3/uL (0.0-0.8); Eosinophils % 1.5 %; Hematocrit 47.3 % (42.0-52.0); Hemoglobin 15.9 g/dL (11.7-16.6); Lymphocytes # 1.7 10^3/uL (0.8-4.8); Lymphocytes % 25.6 %; Mean Corpuscular HGB Conc 33.6 g/dL (30.0-36.0); Mean Corpuscular Hemoglobin 29.8 pg (28.0-34.0); Mean Corpuscular Volume 88.7 fl (80-94); Mean Platelet Volume 10.4 fL (7.4-10.4); Monocytes # 0.7 10^3/uL (0.2-0.9); Monocytes % 9.9 %; Neutrophils % 61.8 %; Nucleated Red Blood Cells % 0 %; Platelet Count 195 10^3/cmm (130-400); Red Blood Count 5.33 10^6/uL (4.1-5.3); Red Cell Distribution Width 11.9 % (12.1-15.1); White Blood Count 6.6 10^3/uL (4.0-10.0)
[2021-05-23 18:01] LABS: Alanine Aminotransferase 59 U/L (0-41); Albumin Level 4.2 g/dL (3.5-5.2); Alkaline Phosphatase 127 IU/L (40-130); Aspartate Amino Transferase 23 U/L (0-40); Blood Urea Nitrogen 16 mg/dL (6-20); Calcium 9.3 mg/dL (8.5-10.5); Carbon Dioxide 25 mmol/L (22-29); Chloride 105 mmol/L (98-107); Globulin 3.4 g/dL (1.3-4.6); Glomerular Filtration Rate 101.2 mL/min (90-130); Glucose 99 mg/dL (65-115); Lipase 29 U/L (13-60); Osmolality Calculated 291 mOsm/kg (285-295); Sodium 140 mmol/L (136-145); Total Bilirubin 0.5 mg/dL (0.15-1.2); Total Protein 7.6 g/dL (6.6-8.7)
[2021-05-23 18:11] LABS: Add Urine Microscopic? NO; Charge for UA Resulting for Rev
[2021-05-23 18:16] LABS: Bilirubin Urine Neg (Negative); Blood Urine Neg (Negative); Glucose Urine UA Norm (Normal); Ketones Urine Negative (Negative); Leukocyte Esterase Urine Negative (Negative); Nitrate Urine Negative (Negative); Protein Urine Neg (Negative); Urine Appearance Clear (CLEAR); Urine Color Yellow (Yellow); Urobilinogen Urine 4 mg/dL (Negative); pH Urine 6.5 (5-7)
[2021-05-23 18:17] LABS: Acetaminophen < 5.0 ug/mL (10-30); Alcohol Level < 10 mg/dL (0-10); Salicylate < 0.3 mg/dL (3-10)
[2021-05-23 18:23] LABS: Amphetamines Screen Urine Negative (Negative); Barbiturates Screen Urine Negative (Negative); Benzodiazepines Screen Urine Negative (Negative); Cocaine Screen Urine Negative (Negative); Opiate Screen Urine Negative (Negative); PCP Screen Urine Negative (Negative); THC Screen Urine Negative (Negative)
[2021-05-23] MEDS: diphenhydrAMINE 50 mg/mL SDV 1mL IVP (18:25)
--- NOTE | 2021-05-23 18:31 | W.ED.ABDPA2 ---
HPI - Abdominal Pain General: Chief Complaint: Abdominal Pain Stated Complaint: ABD PAIN/SI Time Seen by Provider: 05/23/21 17:44 Source: patient and EMS Mode of arrival: EMS Limitations: no limitations History of Present Illness: 26-year-old male who is very well-known to the ER states has been having abdominal pain for over a month he has been seen here multiple times for this pain has had ultrasounds and CTs were normal over the past month. He states he still has this diffuse cramping its been constant for the last month denies any improvement meds. Does have a long psych history states he has been having thoughts of killing himself as well. He states that those thoughts have since subsided currently. Associated Symptoms: Denies chills, dysuria and fever(s) Review of Systems Const: Denies: fever(s), chills, body aches or change in appetite Eyes: Denies: blurry vision or eye discomfort ENMT: Denies: throat pain or dental pain Card: Denies: chest pain Resp: Denies: dyspnea GI: Reports: abdominal pain : Denies: dysuria Musc: Denies: neck pain or back pain Skin/Breast: Denies: rash Neuro: Denies: headache(s) Psych: Reports: depression [place]/Lymph: Denies: easy bruising All/Imm: Denies: urticaria PFSH ED PFSH: Medical History Autistic disorder Disruptive mood dysregulation disorder Major depressive disorder, recurrent, moderate Psychiatric care Surgical History History of foot surgery right- 2020 Social History Smoking and tobacco status: never smoked Physical Exam Const: COMMON NORMALS: no acute distress, patient oriented x3 and healthy appearing HENMT: COMMON NORMALS: normocephalic and atraumatic HEAD & SCALP: normocephalic and atraumatic Eye: COMMON NORMALS: Equal, round and reactive pupils present and EOMs intact bilaterally PUPIL: Yes Equal, round and reactive pupils present Neck/C-Spine: COMMON NORMALS: full ROM and supple Chest: COMMONS NORMALS: normal inspection of the chest and normal palpation of entire chest wall Resp: COMMON NORMALS: normal respiratory effort, No retractions, No use of accessory muscles and clear to auscultation bilaterally AUSCULTATION: clear to auscultation bilaterally Cardio: COMMON NORMALS: regular rate, regular rhythm and No murmurs present (Cardio) RATE: regular rate RHYTHM: regular rhythm GI: COMMON NORMALS: Normal to inspection, nondistended, normoactive bowel sounds present, Soft to palpation, non-tender and no masses PALPATION: Yes Soft to palpation Extremity: COMMON NORMALS: normal to inspection and full ROM Neuro: COMMON NORMALS: patient oriented x3, moves all extremities and no focal motor deficits Psych: COMMON NORMALS: mental status grossly normal, Normal thought process present and cooperative THOUGHT PROCESS: Normal thought process present Skin: COMMON NORMALS: no rashes or lesions noted and no wounds GENERAL SKIN EXAM: no rashes or lesions noted Course Vital Signs: Vital signs: Vital Signs Pulse Rate 80 05/23/21 19:18 Respiratory Rate 20 H 05/23/21 19:18 Blood Pressure 136/81 05/23/21 19:18 Pulse Oximetry 98 05/23/21 19:18 MDM - Abdominal Pain Medical Decision Making Patient presents here with abdominal pain and chronic nature he feels much improved after Reglan. Feel he stable for discharge will prescribe Reglan for home. He also had some depression I had him evaluated by Dr. Howell who feels he is stable for discharge she is not actively suicidal. Lab Data : 05/23/21 17:19 05/23/21 17:19 Labs/Radiology: Laboratory Results WBC 6.6 10^3/uL (4.0-10.0) 05/23/21 17:19 RBC 5.33 10^6/uL (4.1-5.3) H 05/23/21 17:19 Hgb 15.9 g/dL (11.7-16.6) 05/23/21 17:19 Hct 47.3 % (42.0-52.0) 05/23/21 17:19 MCV 88.7 fl (80-94) 05/23/21 17:19 MCH 29.8 pg (28.0-34.0) 05/23/21 17:19 MCHC 33.6 g/dL (30.0-36.0) 05/23/21 17:19 RDW 11.9 % (12.1-15.1) L 05/23/21 17:19 Plt Count 195 10^3/cmm (130-400) 05/23/21 17:19 MPV 10.4 fL (7.4-10.4) 05/23/21 17:19 Neut % (Auto) 61.8 % 05/23/21 17:19 Lymph % (Auto) 25.6 % 05/23/21 17:19 [place] % (Auto) 9.9 % 05/23/21 17:19 Eos % (Auto) 1.5 % 05/23/21 17:19 Baso % (Auto) 0.9 % 05/23/21 17:19 Neut # (Auto) 4.10 10^3/uL (1.8-7.7) 05/23/21 17:19 Lymph # (Auto) 1.7 10^3/uL (0.8-4.8) 05/23/21 17:19 [place] # (Auto) 0.7 10^3/uL (0.2-0.9) 05/23/21 17:19 Eos # (Auto) 0.1 10^3/uL (0.0-0.8) 05/23/21 17:19 Baso # (Auto) 0.1 10^3/uL (0.0-0.1) 05/23/21 17:19 Nucleated RBC % (auto) 0 % 05/23/21 17:19 Nucleated RBCs # 0.0 /100WBC 05/23/21 17:19 Sodium 140 mmol/L (136-145) 05/23/21 17:19 Potassium 4.0 mmol/L (3.5-5.1) 05/23/21 17:19 Chloride 105 mmol/L (98-107) 05/23/21 17:19 Carbon Dioxide 25 mmol/L (22-29) 05/23/21 17:19 Anion Gap 14.0 (5-19) 05/23/21 17:19 BUN 16 mg/dL (6-20) 05/23/21 17:19 Creatinine 0.9 mg/dL (0.7-1.2) 05/23/21 17:19 GFR Calculation 101.2 mL/min (90-130) 05/23/21 17:19 Glucose 99 mg/dL (65-115) 05/23/21 17:19 Calculated Osmolality 291 mOsm/kg (285-295) 05/23/21 17:19 Calcium 9.3 mg/dL (8.5-10.5) 05/23/21 17:19 Total Bilirubin 0.5 mg/dL (0.15-1.2) 05/23/21 17:19 AST 23 U/L (0-40) 05/23/21 17:19 ALT 59 U/L (0-41) H 05/23/21 17:19 Alkaline Phosphatase 127 IU/L (40-130) 05/23/21 17:19 Total Protein 7.6 g/dL (6.6-8.7) 05/23/21 17: Albumin 4.2 g/dL (3.5-5.2) 05/23/21 17: Globulin 3.4 g/dL (1.3-4.6) 05/23/21 17: Lipase 29 U/L (13-60) 05/23/21 17:19 Urine Color Yellow (Yellow) 05/23/21 18:03 Urine Appearance Clear (CLEAR) 05/23/21 18:03 Urine pH 6.5 (5-7) 05/23/21 18:03 Ur Specific [place] 1.020 (1.005-1.030) 05/23/21 18:03 Urine Protein Neg (Negative) 05/23/21 18:03 Urine Glucose (UA) Norm (Normal) 05/23/21 18:03 Urine Ketones Negative (Negative) 05/23/21 18:03 Urine Blood Neg (Negative) 05/23/21 18:03 Urine Nitrate Negative (Negative) 05/23/21 18:03 Urine Bilirubin Neg (Negative) 05/23/21 18:03 Urine Urobilinogen 4 mg/dL (Negative) H 05/23/21 18:03 Ur Leukocyte Esterase Negative (Negative) 05/23/21 18:03 Salicylates < 0.3 mg/dL (3-10) L 05/23/21 17:19 Urine Opiates Screen Negative ng/mL (Negative) 05/23/21 18:03 Acetaminophen < 5.0 ug/mL (10-30) L 05/23/21 17:19 Ur Barbiturates Screen Negative ng/mL (Negative) 05/23/21 18:03 Ur Phencyclidine Scrn Negative ng/mL (Negative) 05/23/21 18:03 Ur Amphetamines Screen Negative ng/mL (Negative) 05/23/21 18:03 U Benzodiazepines Scrn Negative ng/mL (Negative) 05/23/21 18:03 Urine Cocaine Screen Negative ng/mL (Negative) 05/23/21 18:03 U Marijuana (THC) Screen Negative ng/mL (Negative) 05/23/21 18:03 Ethyl Alcohol < 10 mg/dL (0-10) 05/23/21 17:19 Discharge Plan Discharge Patient Disposition: Home Clinical Impression: Abdominal pain Qualifiers: Abdominal location: generalized Qualified Code(s): R10.84 - Generalized abdominal pain Condition: Stable Prescriptions: New Reglan 10 mg tablet 10 mg PO Q6H PRN (Reason: nausea and vomiting) Qty: 20 0RF No Action acetaminophen [Tylenol Extra Strength] 500 mg tablet 500 mg PO TID PRN (Reason: pain) 0RF fluoxetine [Prozac] 20 mg capsule 20 mg PO DAILY Qty: 30 2RF Rx Instructions: Give at 9PM ziprasidone HCl [Geodon] 40 mg capsule 40 mg PO .at bed Qty: 30 2RF Rx Instructions: give with food (meal/snack) Give at 9pm multivitamin Tablet 1 tab PO DAILY Qty: 30 2RF Rx Instructions: Give at 9PM trazodone 100 mg tablet 100 mg PO .nightly Qty: 30 1RF quetiapine [Seroquel] 100 mg tablet 100 mg PO .nightly Qty: 30 1RF bupropion HCl [Wellbutrin XL] 300 mg tablet extended release 24 hr 300 mg PO QAM 30 Days Qty: 30 2RF Rx Instructions: Give at 9AM loratadine 10 mg Capsule 10 mg PO DAILY PRN (Reason: Allergic Symptoms) 0RF fluoride (sodium) [SF 5000 Plus] 1.1 % Cream 1 applic DENTAL DAILY 0RF naphazoline 0.012 % Drops 1 drp OPHTHALMIC (EYE) DAILY PRN (Reason: Dry Eyes) 0RF ondansetron 4 mg tablet,disintegrating 4 mg PO Q6H PRN (Reason: nausea and vomiting) Qty: 14 0RF Discharge Orders: Discharge ED (Routine); Ordered 05/23/21 Ordered By: Aga Berry Referrals: Kenneth Bravo DO [Primary Care Provider] - 1-3 days Discharge Diet: Advance as tolerated Discharge Activity: Resume usual activity Patient Instructions: Abdominal Pain (ED) Coding Level of Care Code ED Clinical Applications Specialist for Chg Fwd Exam Comprehensive
[2021-05-23] MEDS: metoclopramide 5 mg/mL SDV 2 mL 10 MG IVP (18:34)
[2021-05-23 18:37] VITALS: BP 146/91; PULSE 80; RESP 16; O2SAT 99
[2021-05-23 19:18] VITALS: BP 136/81; PULSE 80; RESP 20; O2SAT 98
--- NOTE | 2021-05-23 19:31 | PC.NURSE ---
pt ate sandwhich and pudding drank water with no complaints
== END 2021-05-23 20:06 | disposition home or self-care (01) ==
PROVIDERS: Emergency Provider Emergency Medicine; PCP Internal Medicine
DX: R10.84 Generalized abdominal pain (principal)
CPT/HCPCS: 80053; 80306; 80307; 81003; 83690; 85025; 96374; 96375; 99284; J1200; J2765

== ENCOUNTER 2021-05-27 22:37 | Emergency (ER) | payer MEDICAID, SELFPAY ==
[2021-05-27 22:51] VITALS: BP 158/109; PULSE 87; RESP 20; TEMP 36.8; O2SAT 96; BMI 28.5
--- NOTE | 2021-05-27 23:59 | ED_ITS ---
HPI - Abdominal Pain General: Chief Complaint: Abdominal Pain Stated Complaint: ABD PAIN Time Seen by Provider: 05/27/21 23:58 History of Present Illness: 26-year-old male patient comes in today with complaints of pain with erection. Patient reports pain in his penis every time he has an erection. Patient believes that the pain may be secondary to the use of Depo estrogen he had been on in the past. Patient has difficulty achieving erection due to the pain and discomfort. Associated Symptoms: Denies fever(s) Review of Systems Const: Denies: fever(s) Card: Denies: chest pain Resp: Denies: dyspnea GI: Denies: abdominal pain : Reports: genital pain PFSH ED PFSH: Medical History Autistic disorder Disruptive mood dysregulation disorder Major depressive disorder, recurrent, moderate Psychiatric care Surgical History History of foot surgery right- 2020 Social History Smoking and tobacco status: never smoked Physical Exam Const: COMMON NORMALS: alert Neck/C-Spine: COMMON NORMALS: full ROM Resp: COMMON NORMALS: normal respiratory effort Cardio: COMMON NORMALS: regular rate RATE: regular rate : PENIS: normal penis and circumcised Extremity: COMMON NORMALS: normal to inspection Neuro: SENSORIUM/ORIENTATION: Yes alert Course Vital Signs: Vital signs: Vital Signs Temperature 98.2 F 05/27/21 22:51 Pulse Rate 87 05/27/21 22:51 Respiratory Rate 20 H 05/27/21 22:51 Blood Pressure 158/109 05/27/21 22:51 Pulse Oximetry 96 05/27/21 22:51 MDM - Abdominal Pain Medical Decision Making 26-year-old male patient comes in today with complaints of painful erection. On exam abdomen soft nontender. No pain is noted along the the spine. Patient moves all extremities well. Examination of the penis shows a circumcised penis without any signs of redness or skin lesions. Vital signs are normal. Differ ential diagnosis includes but not limited to erectile dysfunction, prostatitis, Peyronie's disease, balanitis. No signs of significant illness or injuries noted. I will put case management request for referral to urology for further evaluation and treatment. Discharge Plan Discharge Patient Disposition: Home Clinical Impression: Painful penile erection Condition: Stable Prescriptions: No Action acetaminophen [Tylenol Extra Strength] 500 mg tablet 500 mg PO TID PRN (Reason: pain) 0RF fluoxetine [Prozac] 20 mg capsule 20 mg PO DAILY Qty: 30 2RF Rx Instructions: Give at 9PM ziprasidone HCl [Geodon] 40 mg capsule 40 mg PO .at bed Qty: 30 2RF Rx Instructions: give with food (meal/snack) Give at 9pm multivitamin Tablet 1 tab PO DAILY Qty: 30 2RF Rx Instructions: Give at 9PM trazodone 100 mg tablet 100 mg PO .nightly Qty: 30 1RF quetiapine [Seroquel] 100 mg tablet 100 mg PO .nightly Qty: 30 1RF bupropion HCl [Wellbutrin XL] 300 mg tablet extended release 24 hr 300 mg PO QAM 30 Days Qty: 30 2RF Rx Instructions: Give at 9AM loratadine 10 mg Capsule 10 mg PO DAILY PRN (Reason: Allergic Symptoms) 0RF fluoride (sodium) [SF 5000 Plus] 1.1 % Cream 1 applic DENTAL DAILY 0RF naphazoline 0.012 % Drops 1 drp OPHTHALMIC (EYE) DAILY PRN (Reason: Dry Eyes) 0RF ondansetron 4 mg tablet,disintegrating 4 mg PO Q6H PRN (Reason: nausea and vomiting) Qty: 14 0RF metoclopramide HCl [Reglan] 10 mg tablet 10 mg PO Q6H PRN (Reason: nausea and vomiting) Qty: 20 0RF Discharge Orders: Discharge ED (Routine); Ordered 05/28/21 Ordered By: Carlos Morton Referrals: Kenneth Bravo DO [Primary Care Provider] - Discharge Diet: Usual diet Discharge Activity: Increase activity as tolerated Patient Instructions: Pelvic Pain in Men (ED) Activity Restrictions/Additional Instructions: Drink plenty of water. Use Tylenol for pain. Follow-up with primary care as needed. Case management will contact you regarding your painful syndrome. Retu rn to ER for new concerns Coding Level of Care Code ED Etcher Apprentice for Alva Che
--- NOTE | 2021-05-28 11:39 | DCPLANNER ---
Addendum entered by Fany Sanchez 10/01/21 12:08: patient had a follow up appointment scheduled for 08.28.21 with urology - patient did not attend appointment. Addendum entered by Fany Sanchez 05/29/21 10:25: Patient has a follow up appointment scheduled for , August 28, 2021 at 3:[address] Nobles. Clinic will call patient with appointment information. Original Note: regional environmental manager had message to schedule a follow up appointment for patient with urology. regional environmental manager sent patients information to the front office staff at urology. Patients information will be printed and reviewed. Clinic will call patient with appointment information.
== END 2021-05-28 00:37 | disposition home or self-care (01) ==
PROVIDERS: Emergency Provider Nurse Practitioner Family; PCP Internal Medicine
DX: N48.30 Priapism, unspecified (principal)
CPT/HCPCS: 99281

== ENCOUNTER 2021-05-30 07:34 | Day surgery (SDC) | payer MEDICAID, SELFPAY ==
[2021-05-30 08:01] VITALS: BP 117/85; PULSE 100; RESP 17; TEMP 36.6; O2SAT 96
[2021-05-30] MEDS: sodium chloride 0.9% 1,000 ML 30 ML IV (08:08)
--- NOTE | 2021-05-30 08:53 | ANES.PREANE2 ---
Pre-Anesthetic Assessment Height/Weight: Height 2.18 m Weight 142.428 kg Temp Pulse Resp BP Pulse Ox 97.8 F 100 17 117/85 96 05/30/21 08:01 05/30/21 08:01 05/30/21 08:01 05/30/21 08:01 05/30/21 08:01 Preop Diagnosis: upper gi symptoms Operation Date: 05/30/21 09:00 Proposed Procedures p EGD 09284/r10.13(Not Applicable) - Paul Damon MD Familial anesthetic complications: None per patient Was Beta Isadora taken within 24 hours: N/A Was Clonidine taken within 24 hours: N/A Last intake: Intake Last Liquid Date 05/29/21 Last Liquid Time 22:30 Last Solid Date 05/29/21 Last Solid Time 22:30 Social No alcohol and No tobacco Exam alert, oriented x 3, clear to auscultation bilaterally and regular rate & rhythm Airway Submandibular: within normal limits Cervical ROM: within normal limits Mallampati: Class III Dentition: chipped Comments: Comments: Poor dentition Pulmonary None reported Denies STUART CV/HEM None reported METS > 4 Denies hx of Marfan, Yogi Danlos None reported Hepatic None reported GI None reported Metabolic None reported Musc/skel None reported Neuropsych Anxiety and Depression Autism with mood disruption and hx of violent behavior per patient Per patient not violent when I am on my meds and he states he is on his meds currently Anesthetic Plan Anesthesia: Anesthesia Evaluation, General and MAC Other: Consent obtained prior to DOS Risk of > 500 ml blood loss (7ml/kg in children): No Other Pertinent Information Features suggestive of Marfan Syndrome Medications/Allergies Home Medications Medication Instructions Recorded Confirmed Last Taken Type acetaminophen 500 mg tablet 500 mg PO TID PRN tab 02/13/19 05/30/21 06/21/20 History (Tylenol Extra Strength) loratadine 10 mg capsule 10 mg PO DAILY PRN 11/16/19 05/30/21 05/29/21 History naphazoline 0.012 % eye drops 1 drp OPHTHALMIC (EYE) DAILY PRN 06/22/20 05/30/21 Unknown History fluoride (sodium) 1.1 % dental 1 applic DENTAL DAILY 10/03/20 05/30/21 10/03/20 History cream (SF 5000 Plus) fluoxetine 20 mg capsule (Prozac) 20 mg PO DAILY #30 cap 03/11/21 05/30/21 05/29/21 Rx multivitamin 1 tab PO DAILY #30 tab 03/11/21 05/30/21 05/29/21 Rx ziprasidone HCl 40 mg capsule 40 mg PO .at bed #30 cap 03/11/21 05/30/21 05/29/21 Rx (Geodon) bupropion HCl 300 mg 24 hr tablet, 300 mg PO QAM 30 Days #30 tab 04/09/21 05/30/21 05/29/21 Rx extended release (Wellbutrin XL) ondansetron 4 mg disintegrating 4 mg PO Q6H PRN #14 tab 05/15/21 05/30/21 Unknown Rx tablet metoclopramide HCl 10 mg tablet 10 mg PO Q6H PRN #20 tab 05/23/21 05/30/21 Unknown Rx (Reglan) quetiapine 100 mg tablet (Seroquel) 100 mg PO .nightly #30 tab 05/23/21 05/30/21 05/29/21 Rx trazodone 100 mg tablet 100 mg PO .nightly #30 tab 05/23/21 05/30/21 05/29/21 Rx Allergies Allergy/AdvReac Type Severity Reaction Status Date / Time haloperidol [From Haldol] Allergy Unknown Verified 05/30/21 07:54 methylphenidate Allergy Unknown Verified 05/30/21 07:54 [From Ritalin] Current Medications Generic Name Dose Route Start Last Admin Trade Name Freq PRN Reason Stop Dose Admin Sodium Chloride 1,000 mls @ 30 mls/hr 05/30/21 07:45 05/30/21 08:08 Sodium Chloride 0.9% IV 05/31/21 07:44 30 mls/hr .Q24H DELIA Administration PFSH Anesthesia Medical History Autistic disorder Disruptive mood dysregulation disorder Major depressive disorder, recurrent, moderate Psychiatric care Surgical History History of foot surgery right- 2020 Social History Smoking and tobacco status: never smoked Data Anesthesia Cardiac Studies: No Data to Display
--- NOTE | 2021-05-30 09:15 | W.PM.OPSFHP ---
Same Day Surgery H&P Indication for Procedure/HPI DATE OF PROCEDURE: May 30, 2021 CHIEF COMPLAINT/INDICATIONFOR SURGICAL PROCEDURE: n/v for EGD PREOP DIAGNOSIS: upper gi symptoms PLANNED PROCEDURE: Operation Date: 05/30/21 09:00 Proposed Procedures p EGD 95032/r10.13(Not Applicable) - Paul Damon MD Medications/Allergies* Home Medications Medication Instructions Recorded Confirmed Type acetaminophen 500 mg tablet 500 mg PO TID PRN tab 02/13/19 05/30/21 History (Tylenol Extra Strength) loratadine 10 mg capsule 10 mg PO DAILY PRN 11/16/19 05/30/21 History naphazoline 0.012 % eye drops 1 drp OPHTHALMIC (EYE) DAILY PRN 06/22/20 05/30/21 History fluoride (sodium) 1.1 % dental 1 applic DENTAL DAILY 10/03/20 05/30/21 History cream (SF 5000 Plus) Allergies/Adverse Reactions Allergy/AdvReac Type Severity Reaction Status Date / Time haloperidol [From Haldol] Allergy Unknown Verified 05/30/21 07:54 methylphenidate Allergy Unknown Verified 05/30/21 07:54 [From Ritalin] Current Medications: Generic Name Dose Route Start Last Admin Trade Name Freq PRN Reason Stop Dose Admin Sodium Chloride 1,000 mls @ 30 mls/hr 05/30/21 07:45 05/30/21 08:08 Sodium Chloride 0.9% IV 05/31/21 07:44 30 mls/hr .Q24H DELIA Administration Pertinent History/Comorbid Conditions* Medical History (Updated 05/28/21 @ 00:22 by TRISHA Villasenor) Autistic disorder Disruptive mood dysregulation disorder Major depressive disorder, recurrent, moderate Psychiatric care Surgical History (Updated 04/28/21 @ 09:42 by Palu Damon MD) History of foot surgery right- 2019 Social History Smoking and tobacco status: never smoked Pertinent Exam Findings alert, oriented x 3 and regular rate & rhythm Recommendations Surgery/Procedure today Coding Level of Care Code Acute Doorperson Or Luggage Porter for Alva Che
[2021-05-30 10:02] VITALS: BP 126/63; PULSE 78; RESP 16; TEMP 36.4; O2SAT 97
[2021-05-30 10:12] VITALS: BP 103/81; PULSE 85; RESP 18; O2SAT 95
--- NOTE | 2021-05-30 13:04 | ANE.PACU2 ---
Inpatient post-anesthesia follow up: Airway intact: Yes Vital signs: Temperature 97.6 F Pulse Rate 85 Respiratory Rate 18 Blood Pressure 103/81 Pulse Oximetry 95 Oxygen Delivery Me thod Room Air Oxygen Flow Rate 3 Fraction of Inspir ed Oxygen Hydration adequate: Yes Nausea and vomiting: No Pain level: 1 Mental status: Baseline
== END 2021-05-30 10:24 | disposition home or self-care (01) ==
PROVIDERS: PCP Internal Medicine; Visit Provider Surgery
PROC: 0DJ08ZZ Inspection of Upper Intestinal Tract, Via Natural or Artificial Opening Endoscopic (ICD-10-PCS; CPT 43235; principal; 2021-05-30 09:00)
DX: R10.13 Epigastric pain (principal); K29.70 Gastritis, unspecified, without bleeding; F84.0 Autistic disorder; F33.9 Major depressive disorder, recurrent, unspecified
CPT/HCPCS: 43239; 88305; J7030

== ENCOUNTER 2021-06-14 16:48 | Emergency (ER) | payer MEDICAID, SELFPAY ==
[2021-06-14 16:52] VITALS: BP 152/97; PULSE 101; RESP 17; TEMP 36.8; O2SAT 97; BMI 26.1
--- NOTE | 2021-06-14 17:13 | ED_ITS ---
HPI - General Adult General: Chief complaint: Psychiatric Symptoms Stated complaint: PSYCH EVAL Time Seen by Provider: 06/14/21 16:49 History of Present Illness: HPI: [26]yo patient w/ hx of depression and anxiety today for decreased libido while taking patient's antidepressant medica tion. Patient tells me that he is on Prozac, Wellbutrin, and Seroquel for anxiety and depression. Patient says that for last 2 years, he has not been able to have any libido or masturbate. On arrival, the patient is AAOx3 and cooperative with my evaluation. No focal complaints of chest pain, shortness of breath, palpitations, N/V, focal GI/ complaints. Currently denies SI/HI. No complaints of hallucinations. Onset: chronic Duration: ongoing Location: home Severity: severe Associated symptoms: Deny chest pain, dyspnea, nausea, rash, palpitations or vomiting Review of Systems Const: Denies: fever(s) or chills Eyes: Denies: change in vision ENMT: Denies: mouth pain Card: Denies: chest pain or palpitations Resp: Denies: dyspnea or non-productive cough GI: Denies: abdominal pain, nausea, vomiting or diarrhea : Denies: dysuria Musc: Denies: extremity pain Skin/Breast: Denies: rash or new lesions Neuro: Denies: weakness in extremities Psych: Reports: other (Normal mood) Mingo/Lymph: Denies: easy bruising PFS ED PFSH: Medical History Autistic disorder Disruptive mood dysregulation disorder Major depressive disorder, recurrent, moderate Psychiatric care Surgical History H/O esophagogastroduodenoscopy (05/30/21) History of foot surgery right- 2020 Social History Smoking and tobacco status: never smoked Physical Exam Const: COMMON NORMALS: alert HENMT: COMMON NORMALS: atraumatic HEAD & SCALP: atraumatic MOUTH: moist mucous membranes not abnormal Eye: COMMON NORMALS: EOMs intact bilaterally and conjunctivae normal CONJUNCTIVA: Yes conjunctivae normal Neck/C-Spine: COMMON NORMALS: full ROM and supple Resp: COMMON NORMALS: normal respiratory effort and clear to auscultation bilaterally AUSCULTATION: clear to auscultation bilaterally Cardio: COMMON NORMALS: regular rate RATE: regular rate GI: COMMON NORMALS: Soft to palpation and non-tender PALPATION: Yes Soft to palpation Extremity: COMMON NORMALS: full ROM Neuro: SENSORIUM/ORIENTATION: Yes alert MOTOR EXAM: No Abnormal motor strength present and Other motor observations present (no focal motor deficits) Psych: COMMON NORMALS: speech normal SPEECH: Yes normal speech MOOD & AFFECT: Yes euthymic mood Course Vital Signs: Vital signs: Vital Signs Temperature 98.2 F 06/14/21 16:52 Pulse Rate 101 H 06/14/21 16:52 Respiratory Rate 17 06/14/21 16:52 Blood Pressure 152/97 06/14/21 16:52 Pulse Oximetry 97 06/14/21 16:52 MDM - General Adult Medical Decision Making [26]yo patient w/ hx of depression and anxiety presenting for decreased libido. HDS, exam within normal limit Thoughts are linear and organized, and the patient has no AH/VH, or HI. Clinically the patient displays no overt toxidrome; they are well appearing, with low suspicion for toxic ingestion given history and exam. Symptoms unlikely 2/2 anemia, hypothyroidism, infection, or ICH. [5:10pm] On reassessment, labs and workup wnl. Patient is hemodynamically stable with no acute medical complaints. Case discussed with psychiatric provider Dr. Granados at [facility] psych inpatient who recommended close follow-up with [facility]. Dr. Granados recommended going to 1 patient's Wellbutrin dose from 300 mg to 450 mg. I have given patient follow up with our case aide to be seen by our outpatient [facility] in 10 days for medication adjustment. Patient aware of a call from our case aide to schedule for appointment(s) and verbalizes understanding of the importance of following up. Disposition: Discharge Discharge Plan Discharge Patient Disposition: Home Clinical Impression: Depression, Decreased libido Condition: Stable Prescriptions: New Wellbutrin XL 300 mg tablet extended release 24 hr 450 mg PO DAILY 14 Days Qty: 21 0RF Discontinued bupropion HCl [Wellbutrin XL] 300 mg tablet extended release 24 hr 300 mg PO QAM 30 Days Qty: 30 2RF Rx Instructions: Give at 9AM No Action acetaminophen [Tylenol Extra Strength] 500 mg tablet 500 mg PO TID PRN (Reason: pain) 0RF fluoxetine [Prozac] 20 mg capsule 20 mg PO DAILY Qty: 30 2RF Rx Instructions: Give at 9PM ziprasidone HCl [Geodon] 40 mg capsule 40 mg PO .at bed Qty: 30 2RF Rx Instructions: give with food (meal/snack) Give at 9pm trazodone 100 mg tablet 100 mg PO .nightly Qty: 30 1RF quetiapine [Seroquel] 100 mg tablet 100 mg PO .nightly Qty: 30 1RF Protonix 40 mg tablet,delayed release (DR/EC) 40 mg PO DAILY 42 Days Qty: 60 0RF amoxicillin 500 mg tablet 1,000 mg PO BID 14 Days Qty: 56 0RF clarithromycin 500 mg tablet 500 mg PO BID 14 Days Qty: 28 0RF pantoprazole [Protonix] 40 mg tablet,delayed release (DR/EC) 40 mg PO BID 14 Days Qty: 28 0RF multivitamin Tablet 1 tab PO DAILY Qty: 30 2RF Rx Instructions: Give at 9PM loratadine 10 mg Capsule 10 mg PO DAILY PRN (Reason: Allergic Symptoms) 0RF fluoride (sodium) [SF 5000 Plus] 1.1 % Cream 1 applic DENTAL DAILY 0RF naphazoline 0.012 % Drops 1 drp OPHTHALMIC (EYE) DAILY PRN (Reason: Dry Eyes) 0RF ondansetron 4 mg tablet,disintegrating 4 mg PO Q6H PRN (Reason: nausea and vomiting) Qty: 14 0RF metoclopramide HCl [Reglan] 10 mg tablet 10 mg PO Q6H PRN (Reason: nausea and vomiting) Qty: 20 0RF Discharge Orders: Discharge ED (Routine); Ordered 06/14/21 Ordered By: Freddie Donovan Referrals: Kenneth Bravo DO [Primary Care Provider] - Discharge Diet: Advance as tolerated Discharge Activity: Increase activity as tolerated Patient Instructions: Depression (ED) Activity Restrictions/Additional Instructions: Please come back to the emergency room if you need help, have any hallucinati ons, or you have any depression or have thoughts about hurting yourself or other people. Coding Level of Care Code ED Concession Worker for Alva Fwd Exam Comprehensive
[2021-06-14 17:22] VITALS: BP 152/97; PULSE 101; RESP 17; TEMP 36.8; O2SAT 97
== END 2021-06-14 17:23 | disposition home or self-care (01) ==
PROVIDERS: Emergency Provider Emergency Medicine; PCP Internal Medicine
DX: F32.A Depression, unspecified (principal); R68.82 Decreased libido
CPT/HCPCS: 99283

== ENCOUNTER 2021-06-17 17:31 | Emergency (ER) | payer MEDICAID, SELFPAY ==
[2021-06-17 17:37] VITALS: BP 126/86; PULSE 105; RESP 16; O2SAT 94
--- NOTE | 2021-06-17 18:40 | W.ED.PSYCHS ---
HPI - Psych General: Chief Complaint: Psychiatric Symptoms Stated Complaint: SI, GROIN PAIN Time Seen by Provider: 06/17/21 17:32 History of Present Illness: 26-year-old with a longstanding psychiatric history presents to the emergency department with suicidal ideations. Patient has been frustrated over her multiple issues but most recently tried some Viagra and was unable to complete his masturbation and that frustrated him to the point where he just felt like he needed to kill himself and so he presented to the emergency department with suicidal ideations requesting help and to be admitted into the stress unit. He resides in area independent living facility. Associated symptoms: Reports depression and suicidal ideation Review of Systems Psych: Reports: anxiety, depression, loss of interest, irritability and suicidal ideation PFSH ED PFSH: Medical History Autistic disorder Disruptive mood dysregulation disorder Major depressive disorder, recurrent, moderate Psychiatric care Surgical History H/O esophagogastroduodenoscopy (05/30/21) History of foot surgery right- 2020 Social History Smoking and tobacco status: never smoked Physical Exam Const: COMMON NORMALS: no acute distress, patient oriented x3 and alert HENMT: COMMON NORMALS: normocephalic HEAD & SCALP: normocephalic Eye: COMMON NORMALS: Equal, round and reactive pupils present, EOMs intact bilaterally and conjunctivae normal CONJUNCTIVA: Yes conjunctivae normal PUPIL: Yes Equal, round and reactive pupils present Neck/C-Spine: COMMON NORMALS: full ROM, no lymphadenopathy, supple and no meningeal signs Chest: COMMONS NORMALS: normal inspection of the chest Resp: COMMON NORMALS: normal respiratory effort, No retractions and clear to auscultation bilaterally AUSCULTATION: clear to auscultation bilaterally GI: COMMON NORMALS: Normal to inspection, nondistended, normoactive bowel sounds present, Soft to palpation and non-tender PALPATION: Yes Soft to palpation : COMMON NORMALS: Yes no CVA tenderness BLADDER/KIDNEY EXAM: Yes no CVA tenderness Back/Pelvis: COMMON NORMALS: no CVA tenderness Extremity: COMMON NORMALS: normal to inspection, full ROM, capillary refill normal and no joint enlargement Neuro: COMMON NORMALS: patient oriented x3 SENSORIUM/ORIENTATION: Yes alert MENINGEAL SIGNS: Yes no meningeal signs Skin: COMMON NORMALS: no rashes or lesions noted, no wounds, turgor normal and no petechiae GENERAL SKIN EXAM: no rashes or lesions noted and turgor normal Course Vital Signs: Vital signs: Vital Signs Pulse Rate 105 H 06/17/21 17:37 Respiratory Rate 16 06/17/21 17:37 Blood Pressure 126/86 06/17/21 17:37 Pulse Oximetry 94 06/17/21 17:37 [facility] - Psych Medical Decision Making 26-year-old male with a longstanding psychiatric history and with concerns of suicidal ideation. We will obtain a psychiatric consult and make disposition decision after this occurs. Patient was evaluated by psychiatry and felt that it was reasonable to be discharged home with close follow-up. Arrangements were made. Discharge Plan Discharge Patient Disposition: Home Clinical Impression: Autistic disorder, Major depressive disorder, recurrent, moderate Condition: Stable Prescriptions: No Action acetaminophen [Tylenol Extra Strength] 500 mg tablet 500 mg PO TID PRN (Reason: pain) 0RF fluoxetine [Prozac] 20 mg capsule 20 mg PO DAILY Qty: 30 2RF Rx Instructions: Give at 9PM ziprasidone HCl [Geodon] 40 mg capsule 40 mg PO .at bed Qty: 30 2RF Rx Instructions: give with food (meal/snack) Give at 9pm trazodone 100 mg tablet 100 mg PO .nightly Qty: 30 1RF quetiapine [Seroquel] 100 mg tablet 100 mg PO .nightly Qty: 30 1RF Protonix 40 mg tablet,delayed release (DR/EC) 40 mg PO DAILY 42 Days Qty: 60 0RF amoxicillin 500 mg tablet 1,000 mg PO BID 14 Days Qty: 56 0RF clarithromycin 500 mg tablet 500 mg PO BID 14 Days Qty: 28 0RF pantoprazole [Protonix] 40 mg tablet,delayed release (DR/EC) 40 mg PO BID 14 Days Qty: 28 0RF multivitamin Tablet 1 tab PO DAILY Qty: 30 2RF Rx Instructions: Give at 9PM loratadine 10 mg Capsule 10 mg PO DAILY PRN (Reason: Allergic Symptoms) 0RF fluoride (sodium) [SF 5000 Plus] 1.1 % Cream 1 applic DENTAL DAILY 0RF naphazoline 0.012 % Drops 1 drp OPHTHALMIC (EYE) DAILY PRN (Reason: Dry Eyes) 0RF ondansetron 4 mg tablet,disintegrating 4 mg PO Q6H PRN (Reason: nausea and vomiting) Qty: 14 0RF Wellbutrin XL 300 mg tablet extended release 24 hr 450 mg PO DAILY 14 Days Qty: 21 0RF metoclopramide HCl [Reglan] 10 mg tablet 10 mg PO Q6H PRN (Reason: nausea and vomiting) Qty: 20 0RF Discharge Orders: Discharge ED (Routine); Ordered 06/17/21 Ordered By: Dale Capone Referrals: Kenneth Bravo DO [Primary Care Provider] - Patient Instructions: Opioid Safety Activity Restrictions/Additional Instructions: 1. Call for counseling and psychiatry follow up in AM Coding Level of Care Code ED School Photographer for Chg Fwd Exam Comprehensive
--- NOTE | 2021-06-17 19:00 | PC.NURSE ---
26 yo male presents with difficulty having ejaculation after taking Viagra. He was prescribed Viagra due to not being able to get an erection and now has this problem. He endorses SI, fleeting, as well. does not have a plan. Has PMH of same. awaiting call with Psych to determine status.
[2021-06-17 21:55] VITALS: BP 137/86; PULSE 87; RESP 17; O2SAT 98
== END 2021-06-17 21:58 | disposition home or self-care (01) ==
PROVIDERS: Emergency Provider Family Medicine; PCP Internal Medicine
DX: F33.1 Major depressive disorder, recurrent, moderate (principal); F84.0 Autistic disorder
CPT/HCPCS: 99282

== ENCOUNTER → 2021-06-27 13:19 | Outpatient (BNVA) | payer MEDICAID, SELFPAY | PROVIDERS: PCP Internal Medicine; Visit Provider Nurse Practitioner | DX: F84.0 Autistic disorder (principal); F34.81 Disruptive mood dysregulation disorder | CPT/HCPCS: 99214 ==

== ENCOUNTER 2021-07-01 19:42 | Inpatient (IN) | payer MEDICAID, SELFPAY ==
[2021-07-01 19:51] VITALS: BMI 34.0
[2021-07-01 19:57] VITALS: BP 166/85; PULSE 90; RESP 16; TEMP 36.9; O2SAT 96
--- NOTE | 2021-07-01 20:01 | ED_ITS ---
HPI - General Adult General: Chief complaint: Psychiatric Symptoms Stated complaint: si Time Seen by Provider: 07/01/21 19:54 History of Present Illness: HPI: [26]yo patient w/ hx of depression/ autism spectrum disorder presenting for patient suicidal ideation with plan. Patient tells me that even though his Wellbutrin has been increased, he has been feeling increasingly depressed. Patient says that he no longer masturbate. Patient also tells me that he has been stopping taking his Prozac because of non- improvement in his libido after recent medication changes. Patient tells me that none of the medicines are working and he has been feeling suicidal with plans to cut her arms with glass. On arrival, the patient is AAOx3 and cooperative with my evaluation. No focal complaints of chest pain, shortness of breath, palpitations, N/V, focal GI/ complaints. Currently denies HI. No complaints of hallucinations. Onset: acute on chronic Duration: ongoing Location: home Severity: severe Associated symptoms: Deny chest pain, dyspnea, nausea, rash, palpitations or vomiting Review of Systems Const: Denies: fever(s) or chills Eyes: Denies: change in vision ENMT: Denies: mouth pain Card: Denies: chest pain or palpitations Resp: Denies: dyspnea or non-productive cough GI: Denies: abdominal pain, nausea, vomiting or diarrhea : Denies: dysuria Musc: Denies: extremity pain Skin/Breast: Denies: rash or new lesions Neuro: Denies: weakness in extremities Psych: Reports: depression Mingo/Lymph: Denies: easy bruising PFSH ED PFSH: Medical History Autistic disorder Disruptive mood dysregulation disorder Major depressive disorder, recurrent, moderate Psychiatric care Surgical History H/O esophagogastroduodenoscopy (05/30/21) History of foot surgery right- 2020 Social History Smoking and tobacco status: never smoked Physical Exam Const: COMMON NORMALS: alert HENMT: COMMON NORMALS: atraumatic HEAD & SCALP: atraumatic MOUTH: moist mucous membranes not abnormal Eye: COMMON NORMALS: EOMs intact bilaterally and conjunctivae normal CONJUNCTIVA: Yes conjunctivae normal Neck/C-Spine: COMMON NORMALS: full ROM and supple Resp: COMMON NORMALS: normal respiratory effort and clear to auscultation bilaterally AUSCULTATION: clear to auscultation bilaterally Cardio: COMMON NORMALS: regular rate RATE: regular rate GI: COMMON NORMALS: Soft to palpation and non-tender PALPATION: Yes Soft to palpation Extremity: COMMON NORMALS: full ROM Neuro: SENSORIUM/ORIENTATION: Yes alert MOTOR EXAM: No Abnormal motor strength present and Other motor observations present (no focal motor deficits) Psych: COMMON NORMALS: speech normal SPEECH: Yes normal speech MOOD & AFFECT: Yes depressed mood Course Vital Signs: Vital signs: Vital Signs Temperature 98.5 F 07/01/21 19:57 Pulse Rate 90 07/01/21 19:57 Respiratory Rate 16 07/01/21 19:57 Blood Pressure 166/85 07/01/21 19:57 Pulse Oximetry 96 07/01/21 19:57 MDM - General Adult Medical Decision Making [26]yo patient w/ hx of depression, autism spectrum disorder presenting for SI with plan. HDS, exam within normal limit Thoughts are linear and organized, and the patient has no AH/VH, or HI. Clinically the patient displays no overt toxidrome; they are well appearing, with low suspicion for toxic ingestion given history and exam. Symptoms unlikely 2/2 anemia, hypothyroidism, infection, or ICH. Workup: CBC, CMP, Lipase, salicylate/tylenol, UDS Lab findings: wnl [9:35pm] On reassessment, labs and workup wnl. Patient is hemodynamically stable with no acute medical complaints. Case discussed with psychiatric provider Dr. Howell at [facility] psych inpatient with recommendation for admission Disposition: Psych Discharge Plan Discharge Condition: Stable Prescriptions: No Action acetaminophen [Tylenol Extra Strength] 500 mg tablet 500 mg PO TID PRN (Reason: pain) 0RF bupropion HCl [Wellbutrin XL] 150 mg tablet extended release 24 hr 150 mg PO QAM Qty: 30 2RF bupropion HCl [Wellbutrin XL] 300 mg tablet extended release 24 hr 300 mg PO QAM Qty: 30 2RF quetiapine [Seroquel] 100 mg tablet 100 mg PO .nightly Qty: 30 2RF trazodone 100 mg tablet 100 mg PO .nightly Qty: 30 2RF ziprasidone HCl [Geodon] 40 mg capsule 40 mg PO .at bed Qty: 30 2RF Rx Instructions: give with food (meal/snack) Give at 9pm Protonix 40 mg tablet,delayed release (DR/EC) 40 mg PO DAILY 42 Days Qty: 60 0RF pantoprazole [Protonix] 40 mg tablet,delayed release (DR/EC) 40 mg PO BID 14 Days Qty: 28 0RF multivitamin Tablet 1 tab PO DAILY Qty: 30 2RF Rx Instructions: Give at 9PM loratadine 10 mg Capsule 10 mg PO DAILY PRN (Reason: Allergic Symptoms) 0RF fluoride (sodium) [SF 5000 Plus] 1.1 % Cream 1 applic DENTAL DAILY 0RF naphazoline 0.012 % Drops 1 drp OPHTHALMIC (EYE) DAILY PRN (Reason: Dry Eyes) 0RF ondansetron 4 mg tablet,disintegrating 4 mg PO Q6H PRN (Reason: nausea and vomiting) Qty: 14 0RF metoclopramide HCl [Reglan] 10 mg tablet 10 mg PO Q6H PRN (Reason: nausea and vomiting) Qty: 20 0RF Referrals: Kenneth Bravo DO [Primary Care Provider] - Coding Level of Care Code ED 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
[2021-07-01 20:53] LABS: Basophils % 0.5 %; Eosinophils # 0.1 10^3/uL (0.0-0.8); Hematocrit 46.9 % (42.0-52.0); Hemoglobin 15.9 g/dL (11.7-16.6); Lymphocytes # 1.6 10^3/uL (0.8-4.8); Lymphocytes % 25.4 %; Mean Corpuscular HGB Conc 33.9 g/dL (30.0-36.0); Mean Corpuscular Hemoglobin 30.1 pg (28.0-34.0); Mean Corpuscular Volume 88.8 fl (80-94); Mean Platelet Volume 10.2 fL (7.4-10.4); Monocytes # 0.5 10^3/uL (0.2-0.9); Monocytes % 8.3 %; Neutrophils # 4.07 10^3/uL (1.8-7.7); Neutrophils % 63.5 %; Nucleated Red Blood Cells % 0 %; Platelet Count 152 10^3/cmm (130-400); Red Blood Count 5.28 10^6/uL (4.1-5.3); Red Cell Distribution Width 11.8 % (12.1-15.1); White Blood Count 6.4 10^3/uL (4.0-10.0)
[2021-07-01 21:12] LABS: Alanine Aminotransferase 45 U/L (0-41); Albumin Level 4.3 g/dL (3.5-5.2); Alkaline Phosphatase 124 IU/L (40-130); Anion Gap 11.8 (5-19); Aspartate Amino Transferase 18 U/L (0-40); Blood Urea Nitrogen 12 mg/dL (6-20); Calcium 9.3 mg/dL (8.5-10.5); Carbon Dioxide 28 mmol/L (22-29); Chloride 101 mmol/L (98-107); Globulin 3.2 g/dL (1.3-4.6); Glomerular Filtration Rate 135.3 mL/min (90-130); Glucose 105 mg/dL (65-115); Lipase 26 U/L (13-60); Osmolality Calculated 284 mOsm/kg (285-295); Potassium 3.8 mmol/L (3.5-5.1); Sodium 137 mmol/L (136-145); Total Bilirubin 0.5 mg/dL (0.15-1.2); Total Protein 7.5 g/dL (6.6-8.7)
[2021-07-01 21:16] LABS: Acetaminophen < 5.0 ug/mL (10-30); Salicylate < 0.3 mg/dL (3-10)
[2021-07-01 21:33] LABS: Amphetamines Screen Urine Negative (Negative); Barbiturates Screen Urine Negative (Negative); Benzodiazepines Screen Urine Negative (Negative); Cocaine Screen Urine Negative (Negative); Opiate Screen Urine Negative (Negative); PCP Screen Urine Negative (Negative); THC Screen Urine Negative (Negative)
[2021-07-01 22:48] VITALS: BP 138/96; PULSE 95; RESP 16; TEMP 36.7; O2SAT 94
[2021-07-01 23:07] LABS: Alcohol Level < 10 mg/dL (0-10)
[2021-07-01] MEDS: quetiapine 100 mg Tablet PO (23:50)
[2021-07-01] MEDS: trazodone 100 mg Tablet PO (23:50)
[2021-07-01] MEDS: ondansetron 4 MG Tablet PO (23:50)
[2021-07-01] MEDS: ziprasidone hcl 40 mg Capsule PO (23:50)
--- NOTE | 2021-07-01 23:56 | PC.ADMIT ---
[facility] Admission Note: The patient,Josh Colindres,26 y/o, was given written information regarding hospital policies, unit procedures and contact persons. Patient's smoking status: never smoked. Vital Signs - 8 hr 07/01/21 19:57 07/01/21 22:48 Temperature 98.5 F 98.1 F Pulse Rate 90 95 Respiratory Rate 16 16 Blood Pressure 166/85 138/96 Pulse Oximetry 96 94 Patient presented to ER due to SI related to ED and low libido caused by his psych medications. Patient states he also used to be on Depo shot for inapproriate behaviors but states he is not like that anymore. He has stopped his prozac and increased his wellbutrin recently to help with his concerns of ED. Patient denies current SI/HI/AVH. Patient is very disheveled and malodorous and endorses chronic depression, states he has not bathed in a long time . Patient has a self stated long history of psych hospitalizations in multiple hospitals in the region and behavioral issues. He currently lives in an [facility] and has a state appointed guardian. Patient was calm and cooperative, alert and oriented. Signed all paperwork, verbalized understanding, and voiced no concerns. Oriented to unit, room, schedule, q15 mins rounding, etc.
--- NOTE | 2021-07-01 23:57 | PC.NURSE ---
Firmly encouraged patient to take shower and brush teeth due to being very odorous and patient did so.
[2021-07-02 06:00] VITALS: BP 121/79; PULSE 84; RESP 16; TEMP 36.1; O2SAT 98
[2021-07-02] MEDS: multivitamin therapeutic Tablet 1 TAB PO (08:49)
[2021-07-02] MEDS: pantoprazole DR 40 mg Tablet PO ×2 (08:49→17:32)
[2021-07-02] MEDS: metoclopramide 10 mg Tablet PO (08:49)
[2021-07-02] MEDS: artificial tears Op Soln 15 mL Btl 1 DROP EYEAFF (08:55)
[2021-07-02] MEDS: buPROPion XL (24 HR) 300 mg Tablet PO (12:44)
[2021-07-02] MEDS: buPROPion XL (24 HR) 150 mg Tablet PO (12:44)
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
[2021-07-02 14:00] VITALS: BP 123/84; PULSE 94; RESP 18; TEMP 36.7; O2SAT 95
[2021-07-02] MEDS: quetiapine 100 mg Tablet PO (17:32)
[2021-07-02] MEDS: ziprasidone hcl 40 mg Capsule PO (20:35)
[2021-07-02] MEDS: trazodone 100 mg Tablet PO (20:35)
[2021-07-02] MEDS: acetaminophen 325 mg Tablet 650 MG PO (20:35)
[2021-07-02 20:36] VITALS: BP 146/72; PULSE 94; RESP 18; TEMP 36.9; O2SAT 97
[2021-07-03] MEDS: buPROPion XL (24 HR) 300 mg Tablet PO (05:40)
[2021-07-03] MEDS: buPROPion XL (24 HR) 150 mg Tablet PO (05:40)
[2021-07-03 06:00] VITALS: BP 106/74; PULSE 88; RESP 18; TEMP 36.6; O2SAT 97
[2021-07-03] MEDS: pantoprazole DR 40 mg Tablet PO ×2 (09:12→18:23)
[2021-07-03] MEDS: multivitamin therapeutic Tablet 1 TAB PO (09:12)
--- NOTE | 2021-07-03 11:35 | P.NPUPN_ITS ---
Subjective NPU Subjective: Patient is in today continuing to maintain his things from presentation. He talked about the challenges of not being able to since masturbate On-Q and frustration about his sexual dysfunction. He recounted the different measures that he has taken to try to alleviate this problem including planning to his foot fetish, getting a doll getting Viagra etc. He is not wanting to make any medication additions or subtractions at this time but is hoping that the discontinuation of Prozac and that medication getting out of his system will solve the problem. Continue to discussed that the likely culprit is more psychological given his age and medical condition and that this will be a greater challenge than just a medication change. Mental Status Exam MSE Comments: This is an extremely tall, overweight, white male, in [facility] scrubs with adequate grooming, and improving eye contact. No abnormal movements except for mild psychomotor agitation. Cooperative with exam in no acute distress. Speech had normal rate and volume, with decreased prosody. Mood described as irritable and anxious, affect congruent. Thought process organized, thought content: patient denied suicidal or homicidal ideation, there were no delusions reported or noted, he denied any auditory or visual hallucinations. Attention and concentration were intact, and memory appeared unreliable, but none were formally tested. He is alert and oriented to person and situation at least. Insight and judgment are limited. Impulse control is impaired. Vitals/I&O/Wt Last Vital Signs Temp 97.9 F 07/03/21 06:00 Pulse 88 07/03/21 06:00 Resp 18 07/03/21 06:00 BP 106/74 07/03/21 06:00 Pulse Ox 97 07/03/21 06:00 Weight last 48 hrs Weight 120.202 kg Data NPU : 07/01/21 20:44 07/01/21 20:44 A&P Assessment and plan (1) Major depressive disorder, recurrent, moderate: Status: Acute (2) Hypertrophic granulation tissue: Status: Acute (3) Painful orthopaedic hardware: Status: Acute (4) Disruptive mood dysregulation disorder: Status: Acute (5) Autistic disorder: Status: Acute Plan This is a 25-year-old, white male, with autism, major depressive disorder, recu rrent, disruptive mood dysregulation disorder, and fetishism, who presents for admission with multiple recent emergency room visits that did not end up with admission now off of his Prozac endorsing suicidality. RECOMMENDATION AND PLAN: 1.? Continue current medication.? Explore different medication adjustments. 2.? Continue every 15 minute checks for safety. 3.? Encourage individual, group and milieu therapies. 4.? We will need to identify how to manage this sex drive that has led to a lot of his recent difficulties.? Especially given that the previous Depo shot has been discontinued. Will discuss with guardian. Involuntary Hold Information 96 Hour Hold: 96 Hour Involuntary Admission: No Attestations NPU Medical Necessity Statement*: Inpatient hospitalization is medically necessary and the clinically appropriate intervention at this time. We will monitor medication to make changes as indicated. Likely length of stay 2-4 days. Coding Level of Care Code Acute C D Still Operator for Alva Fwd Diagnoses Major depressive disorder, recurrent, moderate F33.1 Hypertrophic granulation tissue L91.8 Painful orthopaedic hardware T84.84XA Disruptive mood dysregulation disorder F34.81 Autistic disorder F84.0
[2021-07-03 14:00] VITALS: BP 130/86; PULSE 101; RESP 18; TEMP 36.7; O2SAT 93
[2021-07-03] MEDS: ondansetron 4 MG Tablet PO (20:15)
[2021-07-03] MEDS: bismuth subsalicylate 240 mL Btl 15 ML PO (20:15)
[2021-07-03 20:27] VITALS: BP 147/79; PULSE 113; RESP 20; TEMP 36.9; O2SAT 93
[2021-07-03] MEDS: trazodone 100 mg Tablet PO (21:44)
[2021-07-03] MEDS: quetiapine 100 mg Tablet PO (21:44)
[2021-07-03] MEDS: ziprasidone hcl 40 mg Capsule PO (21:44)
[2021-07-04 06:00] VITALS: BP 111/77; PULSE 80; RESP 18; TEMP 36.6; O2SAT 95
--- NOTE | 2021-07-04 08:20 | PC.NURSE ---
AM ASSESSMENT COMPLETED. STATES HE SLEPT WELL. DENIES PAIN. DENIES SI/HI AND AVH AT THIS TIME. STATES, MY DEPRESSION AND ANXIETY IS GONE, IT HAS BEEN FOR MONTHSL INTERMITTENLY WILL MAKE COMMENTS ABOUT WANTING TO SEE RN'S FEET. VERBALLY REDIRECTED.
[2021-07-04] MEDS: buPROPion XL (24 HR) 300 mg Tablet PO (08:49)
[2021-07-04] MEDS: pantoprazole DR 40 mg Tablet PO ×2 (08:49→17:33)
[2021-07-04] MEDS: multivitamin therapeutic Tablet 1 TAB PO (08:49)
[2021-07-04] MEDS: buPROPion XL (24 HR) 150 mg Tablet PO (08:49)
[2021-07-04 14:00] VITALS: BP 116/73; PULSE 111; RESP 20; TEMP 37.1; O2SAT 98
[2021-07-04] MEDS: bismuth subsalicylate 240 mL Btl 15 ML PO ×2 (16:45→20:54)
--- NOTE | 2021-07-04 17:22 | PC.NURSE ---
PRN PT COMPLAINED OF ABDOMINAL PAIN AND DISCOMFORT BEFORE EATING THIS EVENING, PEPTO BISMAL GIVEN.
--- NOTE | 2021-07-04 19:42 | W.PM.NPUPNS ---
Subjective NPU Subjective: Patient presents today reporting that he is feeling a little better. We had a lengthy discussion about the half-life of Prozac and that likely in a washout scenario it would be ultimately about 28 to 35 days before Prozac would out of his system. We discussed the fact that he would not be able to stay in the hospital for that kind of a washout. He agreed that he was a little better and understood that fact. We discussed the risk benefits and alternatives of allowing him to stay 1 more night and discharging him in the morning and he understood and agreed proceed as is documented in this note. Mental Status Exam MSE Comments: This is an extremely tall, overweight, white male, in green hospital scrubs with adequate grooming, and improving eye contact. No abnormal movements. Cooperative with exam in no acute distress. Speech had normal rate and volume, with decreased prosody. Mood described as better and less anxious, affect congruent. Thought process organized, thought content: patient denied suicidal or homicidal ideation, there were no delusions reported or noted, he denied any auditory or visual hallucinations. Attention and concentration were intact, and memory appeared unreliable, but none were formally tested. He is alert and oriented to person and situation at least. Insight and judgment are limited. Impulse control is impaired. Vitals/I&O/Wt Last Vital Signs Temp 98.8 F 07/04/21 14:00 Pulse 103 H 07/04/21 20:23 Resp 16 07/04/21 20:23 BP 129/88 07/04/21 20:23 Pulse Ox 95 07/04/21 20:23 Data NPU : 07/01/21 20:44 07/01/21 20:44 A&P Assessment and plan (1) Major depressive disorder, recurrent, moderate: Status: Acute (2) Hypertrophic granulation tissue: Status: Acute (3) Painful orthopaedic hardware: Status: Acute (4) Disruptive mood dysregulation disorder: Status: Acute (5) Autistic disorder: Status: Acute Plan This is a 25-year-old, white male, with autism, major depressive disorder, recurrent, disruptive mood dysregulation disorder, and fetishism, who presents for admission with multiple recent emergency room visits that did not end up with admission now off of his Prozac endorsing suicidality. RECOMMENDATION AND PLAN: 1.? Continue current medication.? Explore different medication adjustments. 2.? Continue every 15 minute checks for safety. 3.? Encourage individual, group and milieu therapies. 4.? Plan for discharge in the morning. Involuntary Hold Information 96 Hour Hold: 96 Hour Involuntary Admission: No Attestations NPU Medical Necessity Statement*: Inpatient hospitalization is medically necessary and the clinically appropriate intervention at this time. We will monitor medication to make changes as indicated.? Likely length of stay 1-3 days. Coding Level of Care Code Acute [employer] [facility] Diagnoses Major depressive disorder, recurrent, moderate F33.1 Hypertrophic granulation tissue L91.8 Painful orthopaedic hardware T84.84XA Disruptive mood dysregulation disorder F34.81 Autistic disorder F84.0
[2021-07-04 20:23] VITALS: BP 129/88; PULSE 103; RESP 16; O2SAT 95
[2021-07-04] MEDS: trazodone 100 mg Tablet PO (20:55)
[2021-07-04] MEDS: ondansetron 4 MG Tablet PO (20:55)
[2021-07-04] MEDS: ziprasidone hcl 40 mg Capsule PO (20:55)
[2021-07-04] MEDS: quetiapine 100 mg Tablet PO (20:55)
[2021-07-05 06:00] VITALS: BP 111/73; PULSE 83; RESP 16; O2SAT 98
--- NOTE | 2021-07-05 06:51 | W.PM.NPUDCS ---
Diagnoses at Discharge Discharge Diagnosis (1) Major depressive disorder, recurrent, moderate: Status: Acute (2) Hypertrophic granulation tissue: Status: Acute (3) Painful orthopaedic hardware: Status: Acute (4) Disruptive mood dysregulation disorder: Status: Acute (5) Autistic disorder: Status: Acute Reason for Visit Reason for Visit: si Brief History: History of Present Illness Josh Colindres is a 26 year old male who presented to the emergency department with the following report: Chief complaint: Psychiatric Symptoms Stated complaint: si Time Seen by Provider: 07/01/21 19:54 History of Present Illness:?? HPI: [26]yo patient w/ hx of depression/ autism spectrum disorder presenting for patient suicidal ideation with plan.? Patient tells me that even though his Wellbutrin has been increased, he has been feeling increasingly depressed.? Patient says that he no longer masturbate.? Patient also tells me that he has been stopping taking his Prozac because of non-improvement in his libido after recent medication changes.? Patient tells me that none of the medicines are working and he has been feeling suicidal with plans to cut her arms with glass.? On arrival, the patient is AAOx3 and cooperative with my evaluation. No focal complaints of chest pain, shortness of breath, palpitations, N/V, focal GI/ complaints. Currently denies HI. No complaints of hallucinations. Onset: acute on chronic Duration: ongoing Location: home Severity: severe Associated symptoms: Deny chest pain, dyspnea, nausea, rash, palpitations or vomiting. He was admitted to the neuropsychiatric unit for definitive treatment of those issues.? Patient presents today as he tells and has been seen by this public relations writer at least 10 times to count emergency room because for medical clearance and decisions of admission versus discharge.? He has been there multiple times surrounding this issue with some different changes being made by Dr. Monroe as well as the emergency room doctors to manage his depression as well as his concerns that he is having decreased libido.? Due to concerns with this decreased libido he ended up ultimately discontinuing his Prozac and now is reporting recurrence of depression.? He denied any substantive changes since his last hospitalization.? Still lives in the same place lives with the same arrangement with 24-hour support.? He just reports that the suicidality is increasing as this libido issue goes unresolved.? We discussed with her the alternative of reviewing his medication history in the chart to determine which antidepressant he either has not been on or which 1 daily has the lowest incidence of sexual side effects outside of the location to determine what to initiate to assist with his circumstance and he understood and agreed to proceed as is documented in this note.? An excerpt of his November 2020 hospitalization evaluation is included below for context and given no significant changes. Per his 11/16/2020 [facility] inpatient psychiatric evaluation: History of Present Illness Josh Colindres is a 25 year old male who presented to the emergency department with the following report: Chief complaint: Psychiatric Symptoms Stated complaint: si Time Seen by Provider: 11/15/20 20:30 History of Present Illness:?? HPI narrative: HPI: [25]yo patient w/ hx of depression BIBA for acute suicidal ideation. Patient was medically stabilized last month and since his discharge, he has endorsed thoughts of killing himeslf. Patient has plan to end his life with a knife. On arrival, the patient is AAOx3 and cooperative with my evaluation. No focal complaints of chest pain, shortness of breath, palpitations, N/V, focal GI/ complaints. []Currently denies SI/HI. No complaints of hallucinations. Onset: chronic Duration: ongoing Location: home Severity: severe. He was admitted to the neuropsychiatric unit for definitive treatment of those issues.? Patient presents today reporting suicidal thoughts with a plan.? We discussed the fact that he has currently been here 3 times in the last 6 weeks and we need to have a plan for how to curb this shift in his ability to manage his frustration tolerance and anxieties.? He denied any significant changes other than these suicidal thoughts and denies any substantive changes in his life is on excerpt of his last hospitalization is included for context.? We discussed the risk benefits and alternatives of working with him over the weekend and likely discharge at the beginning of the week and he understood and agreed to proceed as is documented in his note. Per his 10/04/2020 [facility] inpatient psychiatric evaluation: History of Present Illness Josh Colindres is a 25 year old male who presented to the emergency department the following report: Chief Complaint: Psychiatric Symptoms Stated Complaint: NHE Time Seen by Provider: 10/03/20 20:22 Source: patient Mode of arrival: ambulatory Limitations: no limitations History of Present Illness:?? HPI Narrative: 25-year-old male has a history of autism along with anger disorders.? Patient's been admitted here multiple times and was recently discharged 2 days ago.? Patient lives at a snf they state that he got angry today and threatened to kill himself and harm others.? Patient is now calm and states. Presented to the neuropsychiatric unit for definitive treatment of those issues.Josh presents today reporting that he acknowledges now that the need for a different mood stabilizer is necessary. He reports he went back to his residence and was struggling with irritability and being more easily frustrated than he normally is. He reports that he tried to manage his impulses, but he was unable to, and so he presented to the emergency department last night. We discussed the risks, benefits, and alternatives of discussing his situation with his outpatient provider, who has a more robust history of the medications that he has been tried on and see if she has some suggestions for the next direction to go, and he understood and agreed to proceed as is documented in this note with that plan. Per his 09-28-20 [facility] inpatient psychiatric evaluation: History of Present Illness Josh Colindres is a 25 year old male who presented to the emergency department with the following report: Chief Complaint: Psychiatric Symptoms Stated Complaint: SI Time Seen by Provider: 09/27/20 19:42 History of Present Illness:?? HPI Narrative: Patient arrived via ambulance with complaint that he went to kill himself earlier today and that has made suicidal statements.? They also took a CD to his neck and pushed out like he was try to cut his throat but did not put much pressure against.? Patient states he wants psychiatric help that he want to keep on living. complaint: suicidal ideation and feels depressed Onset (ago): day(s) Duration: getting worse History of same: Yes Relieving factors: none Context: new medication(s) Associated psychiatric symptoms: depression and suicidal ideation Associated symptoms: Reports depression and suicidal ideation Treatments prior to arrival: none If self harm: admits thoughts of self harm and has plan. He was admitted to the neuropsychiatric unit for definitive treatment of those issues.? He is known to this public relations writer through previous inpatient hospitalizations.? He will just he finally decided to come to the hospital as he became overwhelmed with the fact that his medications were causing him to not be able to feel anything, reports essentially feeling numb, not having any emotions and feeling that maybe follow his medications was doing that to him.? He cannot articulate any other concerns or problems.? He denies any changes in his life reporting that he lives in the same circumstances.? He denies any substantive changes in his life.? He discussed regarding the alternatives of's reviewing his medications and get exam collateral information to determine what might be helpful change the medication he understood and agreed to proceed as documented in this note.? An excerpt from his July 10, 2019 [facility] inpatient evaluation is included for context that he denies changes in his circumstances. Per his 07/10/2019 [facility] inpatient psychiatric evaluation: History of Present Illness Josh Colindres is a 24 year old male History of Present Illness who presented to the emergency room well-known to the ED with a long history of previous psychiatric inpatient stays.? He reported an increase in anger along with depression and that he knows himself well needs his meds adjusted.? He was concerned that he would act in some way with his anger that would get him in trouble so he wanted to be admitted to address those issues.? He was admitted to the neuropsychiatric unit for definitive treatment of those issues.? On the unit we had conversations about issues pertaining to his medication and how he feels they have been working.? He has some issue with how the medications make him feel at night and so we discussed the risks, benefits and alternatives of changing the medication to daytime.? Additionally he is having some numbness versus depression in terms of his affect and he wanted to consider some medication for that.? We discussed the risks benefits and alternatives of Wellbutrin XL and he understood and agreed to proceed as is documented in this note.? We reviewed his last inpatient stay along with some of the recent notes from [facility].? He denied any substantive changes in his history and excerpt from his last eval was included below which we reviewed. Per last IP eval: Date of Service: Apr 30, 2018 Chief Complaint: I have problems with my anger.? I don't need to be here. HPI: Josh Colindres is a 23-year-old man who is living in a supervised living facility.? Mr. Colindres is a 22-year-old single male on disability for schizoaffective disorder who is well known to our behavior health services who was brought to the emergency room department after having another behavioral incident at his snf yesterday.? He was admitted on a 96 hour hold but does have a guardian who gives consent for appropriate medical care.? Affidavits reviewed on the chart. ?On the day of admission, he became angry at one of his caretakers.? He claims the medical record administrator called him a retarded .? Josh became angry.? It does not surprise him when they simply bundle him up and sending off to a psychiatric unit when they feel he is close to be out of control.? Josh is a large man streak of being violent that typically in a nondirected way.? His size alone is intimidating.? He is on multiple medications specifically designed to reduce his irritability and his aggression.? It is likely that the threshold for sending him to a psychiatric unit is very low if he appears to becoming agitated. .At this time he is denying? suicidality and homicidality he reports that his mood is good per reports that he is tired and just wants to sleep rather than participate in groups.? He has been compliant with medications and feels he does not need any adjustments at this time.? He denies any auditory/visual hallucinations or alcohol/illicit substance use. Josh denies having suicidal or homicidal ideation.? He denies any mental health issues at this time other than the fact that his medications during the day make him excessively tired.? He understands he takes them to help him with his anger.? However he wishes that he could be more active and think more clearly during the day. Psychiatric review of systems: He reports that his mood is good currently but does intermittently endorse feeling down or irritable with staff.? He endorses ongoing suicidal or homicidal thoughts. ? Denies any auditory or visual hallucinations or overt paranoia.? He endorses some intermittent problems with sleep and fatigue today but otherwise is uncooperative with more thorough psychiatric review of systems.? He reports feeling anxious when made to do things he does not wish to.? Does have a long-standing history of impulsivity and behavioral Hospital Course Hospital Course He is negative the individual, group milieu therapies provided. Is very clear that this issue that brings him to the hospital was vanishes, appropriate sexual drive for a 26 male but also with his OCD-like obsession about his ability to pleasuring himself daily. He has not wrongly his concern that possibly be diminishing his libido however he had multiple Sustenna in his age bracket most causes erectile dysfunction have a psychological component. Patient irritability throughout his stay and ultimately had a modest to significant improvement in how he felt. There is significant question as to whether this will a lasting benefit given the complexity of the situation. He was able to contract for safety outside the hospital prior to discharge. During the hospitalization, patient had routine laboratory studies which were within normal limits except for few outliers. Additionally there was a general medical evaluation which was also within normal limits and revealed no new acute processes. Discharge Summary: At the time of discharge, he denied psychosis or lethality Mood and anxiety were well managed. Patient endorsed a plan to avoid all drugs of abuse and follow-up with the aftercare recommendations of the treatment team. Patient was evaluated and deemed to be absent credible lethality, and had achieved the maximum benefit from an inpatient hospitalization, so was discharged. Involuntary Hold Information 96 Hour Hold: 96 Hour Involuntary Admission: No Mental Status Exam MSE Comments: This is an extremely tall, overweight, white male, in [place] hospital scrubs with adequate grooming, and improving eye contact. No abnormal movements. Cooperative with exam in no acute distress. Speech had normal rate and volume, with decreased prosody. Mood described as better, affect congruent. Thought process organized, thought content: patient denied suicidal or homicidal ideation, there were no delusions reported or noted, he denied any auditory or visual hallucinations. Attention and concentration were intact, and memory appeared unreliable, but none were formally tested. He is alert and oriented to person and situation at least. Insight and judgment are limited. Impulse control is impaired. Discharge Data Studies Completed and Pending: Laboratory Results WBC 6.4 10^3/uL (4.0- 10.0) 07/01/21 20:44 RBC 5.28 10^6/uL (4.1 -5.3) 07/01/21 20:44 Hgb 15.9 g/dL (11.7-1 6.6) 07/01/21 20:44 Hct 46.9 % (42.0-52.0 ) 07/01/21 20:44 MCV 88.8 fl (80-94) 07/01/21 20:44 MCH 30.1 pg (28.0-34. 0) 07/01/21 20:44 MCHC 33.9 g/dL (30.0-3 6.0) 07/01/21 20:44 RDW 11.8 % (12.1-15.1 ) L 07/01/21 20:44 Plt Count 152 10^3/cmm (130 -400) 07/01/21 20:44 MPV 10.2 fL (7.4-10.4 ) 07/01/21 20:44 Neut % (Auto) 63.5 % 07/01/21 20:44 Lymph % (Auto) 25.4 % 07/01/21 20:44 Vilas % (Auto) 8.3 % 07/01/21 20:44 Eos % (Auto) 2.0 % 07/01/21 20:44 Baso % (Auto) 0.5 % 07/01/21 20:44 Neut # (Auto) 4.07 10^3/uL (1.8 -7.7) 07/01/21 20:44 Lymph # (Auto) 1.6 10^3/uL (0.8- 4.8) 07/01/21 20:44 Vilas # (Auto) 0.5 10^3/uL (0.2- 0.9) 07/01/21 20:44 Eos # (Auto) 0.1 10^3/uL (0.0- 0.8) 07/01/21 20:44 Baso # (Auto) 0.0 10^3/uL (0.0- 0.1) 07/01/21 20:44 Nucleated RBC % (a uto) 0 % 07/01/21 20:44 Nucleated RBCs # 0.0 /100WBC 07/01/21 20:44 Sodium 137 mmol/L (136-1 45) 07/01/21 20:44 Potassium 3.8 mmol/L (3.5-5 .1) 07/01/21 20:44 Chloride 101 mmol/L (98-10 7) 07/01/21 20:44 Carbon Dioxide 28 mmol/L (22-29) 07/01/21 20:44 Anion Gap 11.8 (5-19) 07/01/21 20:44 BUN 12 mg/dL (6-20) 07/01/21 20:44 Creatinine 0.7 mg/dL (0.7-1. 2) 07/01/21 20:44 GFR Calculation 135.3 mL/min (90- 130) H 07/01/21 20:44 Glucose 105 mg/dL (65-115 ) 07/01/21 20:44 Calculated Osmolal ity 284 mOsm/kg (285- 295) L 07/01/21 20:44 Calcium 9.3 mg/dL (8.5-10 .5) 07/01/21 20:44 Total Bilirubin 0.5 mg/dL (0.15-1 .2) 07/01/21 20:44 AST 18 U/L (0-40) 07/01/21 20:44 ALT 45 U/L (0-41) H 07/01/21 20:44 Alkaline Phosphata se 124 IU/L (40-130) 07/01/21 20:44 Total Protein 7.5 g/dL (6.6-8.7 ) 07/01/21 20:44 Albumin 4.3 g/dL (3.5-5.2 ) 07/01/21 20:44 Globulin 3.2 g/dL (1.3-4.6 ) 07/01/21 20:44 Lipase 26 U/L (13-60) 07/01/21 20:44 Salicylates < 0.3 mg/dL (3-10 ) L 07/01/21 20:44 Urine Opiates Scre en Negative ng/mL (N egative) 07/01/21 20:44 Acetaminophen < 5.0 ug/mL (10-3 0) L 07/01/21 20:44 Ur Barbiturates Sc reen Negative ng/mL (N egative) 07/01/21 20:44 Ur Phencyclidine S crn Negative ng/mL (N egative) 07/01/21 20:44 Ur Amphetamines Sc reen Negative ng/mL (N egative) 07/01/21 20:44 U Benzodiazepines Scrn Negative ng/mL (N egative) 07/01/21 20:44 Urine Cocaine Scre en Negative ng/mL (N egative) 07/01/21 20:44 U Marijuana (THC) Screen Negative ng/mL (N egative) 07/01/21 20:44 Ethyl Alcohol < 10 mg/dL (0-10) 07/01/21 20:44 Vitals: Last Vital Signs Temp 98.8 F 07/04/21 14:00 Pulse 83 07/05/21 06:00 Resp 16 07/05/21 06:00 BP 111/73 07/05/21 06:00 Pulse Ox 98 07/05/21 06:00 Discharge Plan Discharge Patient Disposition: Home Condition: Stable Prescriptions: Continued acetaminophen [Tylenol Extra Strength] 500 mg tablet 500 mg PO TID PRN (Reason: pain) 0RF bupropion HCl [Wellbutrin XL] 150 mg tablet extended release 24 hr 150 mg PO QAM Qty: 30 2RF bupropion HCl [Wellbutrin XL] 300 mg tablet extended release 24 hr 300 mg PO QAM Qty: 30 2RF quetiapine [Seroquel] 100 mg tablet 100 mg PO .nightly Qty: 30 2RF trazodone 100 mg tablet 100 mg PO .nightly Qty: 30 2RF ziprasidone HCl [Geodon] 40 mg capsule 40 mg PO .at bed Qty: 30 2RF Rx Instructions: give with food (meal/snack) Give at 9pm pantoprazole [Protonix] 40 mg tablet,delayed release (DR/EC) 40 mg PO BID 14 Days Qty: 28 0RF multivitamin Tablet 1 tab PO DAILY Qty: 30 2RF Rx Instructions: Give at 9PM loratadine 10 mg Capsule 10 mg PO DAILY PRN (Reason: Allergic Symptoms) 0RF fluoride (sodium) [SF 5000 Plus] 1.1 % Cream 1 applic DENTAL DAILY 0RF naphazoline 0.012 % Drops 1 drp OPHTHALMIC (EYE) DAILY PRN (Reason: Dry Eyes) 0RF ondansetron 4 mg tablet,disintegrating 4 mg PO Q6H PRN (Reason: nausea and vomiting) Qty: 14 0RF metoclopramide HCl [Reglan] 10 mg tablet 10 mg PO Q6H PRN (Reason: nausea and vomiting) Qty: 20 0RF Discharge Orders: Discharge Order (Routine); Ordered 07/05/21 Ordered By: Ruben Howell Referrals: Lenora Lafleur PMHNP [Staff Physician] - (Call Wednesday07/08/21 to make a follow up appointment) Kenneth Bravo DO [Primary Care Provider] - Discharge Diet: Regular Discharge Activity: Resume usual activity Patient Instructions: Depression (DC), Suicide Prevention (DC), Opioid Safety Discharge Attestations NPU Time Spent in Discharge Care*: less than 30 min Specific Discharge Activities: Specific discharge activities: educating patient, discussing with correctional case manager/social workers/dc planners, documenting/other paperwork and evaluating patient/reviewing data Status at Discharge: Cognitive status at discharge: cognitively intact, Behavioral status at discharge: cooperative, Coding Level of Care Code Acute Chg FW DC note Diagnoses Major depressive disorder, recurrent, moderate F33.1 Hypertrophic granulation tissue L91.8 Painful orthopaedic hardware T84.84XA Disruptive mood dysregulation disorder F34.81 Autistic disorder F84.0
[2021-07-05 08:09] VITALS: BP 111/73; PULSE 83; RESP 16; O2SAT 98
[2021-07-05] MEDS: buPROPion XL (24 HR) 150 mg Tablet PO (08:51)
[2021-07-05] MEDS: multivitamin therapeutic Tablet 1 TAB PO (08:51)
[2021-07-05] MEDS: buPROPion XL (24 HR) 300 mg Tablet PO (08:52)
[2021-07-05] MEDS: pantoprazole DR 40 mg Tablet PO (08:52)
== END 2021-07-05 09:48 | DRG 885 ==
LOC: ER 20:35 → NP 22:03
PROVIDERS: Admitting Provider Psychiatry & Neurology Psychiatry; Emergency Provider Emergency Medicine; PCP Internal Medicine; Visit Provider Psychiatry & Neurology Psychiatry
DX: F33.1 Major depressive disorder, recurrent, moderate (principal); R45.851 Suicidal ideations; F84.0 Autistic disorder; F34.81 Disruptive mood dysregulation disorder; F65.0 Fetishism; F42.8 Other obsessive-compulsive disorder
CPT/HCPCS: 80053; 80306; 80307; 83690; 85025; 97150; 97165; 99285; J8597; Q0162

== ENCOUNTER 2021-07-26 15:36 | Emergency (ER) | payer MEDICAID, SELFPAY ==
[2021-07-26 15:54] VITALS: BP 117/86; PULSE 97; RESP 18; TEMP 36.7; O2SAT 98
--- NOTE | 2021-07-26 16:02 | ED.C_ITS ---
Documented by User: CUCA Dwyer 07/26/21 17:11 HPI - Psych General: Chief Complaint: Psychiatric Symptoms Stated Complaint: Says private area is hurting Time Seen by Provider: 07/26/21 16:01 Source: patient and other (caregiver) Mode of arrival: ambulatory Limitations: no limitations History of Present Illness: Patient is a 26-year-old male who is well-known to our emergency department here with his caregiver for concerns of an episode of aggressive behavior as well as questionable suicidal ideations. According to patient he has been having anger outbursts secondary to erectile dysfunction and not being able to successfully masturbate. He states this morning he broke a window. He also got red hair dye and placed it on his arms and legs and tried to prank his staff that he had slit his wrist in a suicide attempt. There were some suicidal statements that were made however upon arrival to the ED patient is adamantly not suicidal. He states he would never go through that. MD complaint: feels depressed Duration: constant History of same: Yes Associated psychiatric symptoms: depression Associated symptoms: Reports depression Treatments prior to arrival: none Review of Systems Const: Denies: fever(s) or chills Card: Denies: chest pain, palpitations, lightheadedness or syncope Resp: Denies: dyspnea GI: Denies: abdominal pain, nausea, vomiting or diarrhea : Reports: difficulty with ejactulations and erectile dysfunction; Denies: flank pain, dysuria, testicular pain or scrotal swelling Skin/Breast: Denies: rash Neuro: Denies: headache(s) Psych: Reports: depression [facility] ED PFSH: Medical History Autistic disorder Disruptive mood dysregulation disorder Major depressive disorder, recurrent, moderate Psychiatric care Surgical History H/O esophagogastroduodenoscopy (05/30/21) History of foot surgery right- 2020 Social History Smoking and tobacco status: never smoked Physical Exam Const: COMMON NORMALS: no acute distress, patient oriented x3, no limitations and alert GENERAL APPEARANCE: cooperative ORIENTATION/CONSCIOUSNESS: Yes awake, Yes oriented to person, Yes oriented to place and Yes oriented to time Resp: COMMON NORMALS: normal respiratory effort and clear to auscultation bilaterally AUSCULTATION: clear to auscultation bilaterally Cardio: COMMON NORMALS: regular rate and regular rhythm RATE: regular rate RHYTHM: regular rhythm Extremity: COMMON NORMALS: normal to inspection GENERAL: Yes normal exam except as noted Neuro: KEELEY COMA SCALE: document GCS findings Allen coma scale eye opening: Spontaneous Allen coma scale verbal response: Orientated Allen coma scale motor response: Obey commands Allen coma scale total score: 15 COMMON NORMALS: patient oriented x3, moves all extremities, no focal motor deficits, no sensory deficits noted and gait normal SENSORIUM/ORIENTATION: Yes alert, Yes oriented to person, Yes oriented to place and Yes oriented to time Psych: COMMON NORMALS: cooperative, normal affect, speech normal, activity/motor behavior normal, denies hallucinations, denies homicidal ideation and denies suicidal ideation APPEARANCE: Yes grossly normal ATTITUDE: Yes calm ACTIVITY/MOTOR BEHAVIOR: Yes appropriate eye contact SPEECH: Yes normal speech MOOD & AFFECT: Yes euthymic mood THOUGHT CONTENT: Yes Normal thought content present ATTENTION/CONCENTRATION: Yes attention grossly intact and Yes concentration grossly intact INSIGHT: Fair insight present (Psych) JUDGEMENT: Fair judgement present (Psych) Skin: NARRATIVE SKIN EXAM: covered in red hair dye to extremities Course Consultations: Consultation #1: Dr. Howell-will telepsych with patient Vital Signs: Vital signs: Vital Signs Temperature 98.1 F 07/26/21 15:54 Pulse Rate 88 07/26/21 17:31 Respiratory Rate 16 07/26/21 17:31 Blood Pressure 117/86 07/26/21 15:54 Pulse Oximetry 94 07/26/21 17:31 MDM - Psych Medical Decision Making Patient is not suicidal or homicidal. Caregiver and supervisor of guidance and testing at [facility] are comfortable with him going home. Patient received a tele psychiatric evaluation by Dr. Howell. He feels patient is stable for discharge. Please refer to Dr. Gonzalez's note for specific psychiatric assessment. Return to ED precautions verbally given to patient and caregiver. Discharge Plan Discharge Patient Disposition: Home Clinical Impression: Depression, Aggressive behavior Condition: Stable Prescriptions: No Action acetaminophen [Tylenol Extra Strength] 500 mg tablet 500 mg PO TID PRN (Reason: pain) 0RF bupropion HCl [Wellbutrin XL] 150 mg tablet extended release 24 hr 150 mg PO QAM Qty: 30 2RF bupropion HCl [Wellbutrin XL] 300 mg tablet extended release 24 hr 300 mg PO QAM Qty: 30 2RF quetiapine [Seroquel] 100 mg tablet 100 mg PO .nightly Qty: 30 2RF trazodone 100 mg tablet 100 mg PO .nightly Qty: 30 2RF ziprasidone HCl [Geodon] 40 mg capsule 40 mg PO .at bed Qty: 30 2RF Rx Instructions: give with food (meal/snack) Give at 9pm pantoprazole [Protonix] 40 mg tablet,delayed release (DR/EC) 40 mg PO BID 14 Days Qty: 28 0RF multivitamin Tablet 1 tab PO DAILY Qty: 30 2RF Rx Instructions: Give at 9PM loratadine 10 mg Capsule 10 mg PO DAILY PRN (Reason: Allergic Symptoms) 0RF fluoride (sodium) [SF 5000 Plus] 1.1 % Cream 1 applic DENTAL DAILY 0RF naphazoline 0.012 % Drops 1 drp OPHTHALMIC (EYE) DAILY PRN (Reason: Dry Eyes) 0RF ondansetron 4 mg tablet,disintegrating 4 mg PO Q6H PRN (Reason: nausea and vomiting) Qty: 14 0RF metoclopramide HCl [Reglan] 10 mg tablet 10 mg PO Q6H PRN (Reason: nausea and vomiting) Qty: 20 0RF Discharge Orders: Discharge ED (Routine); Ordered 07/26/21 Ordered By: Evette Casper Referrals: Kenneth Bravo DO [Primary Care Provider] - Coding Level of Care Code ED Blending Plant Operator for Chg Fwd Exam Detailed Documented by User: Gamal Parekh DO 07/26/21 17:42 HPI - Psych General: Chief Complaint: Psychiatric Symptoms Stated Complaint: Says private area is hurting Time Seen by Provider: 07/26/21 16:01 [facility] ED PFSH: Medical History Autistic disorder Disruptive mood dysregulation disorder Major depressive disorder, recurrent, moderate Psychiatric care Surgical History H/O esophagogastroduodenoscopy (05/30/21) History of foot surgery right- 2020 Social History Smoking and tobacco status: never smoked Physical Exam Neuro: KEELEY COMA SCALE: document GCS findings Allen coma scale total score: 15 Course Vital Signs: Vital signs: Vital Signs Temperature 98.1 F 07/26/21 15:54 Pulse Rate 88 07/26/21 17:31 Respiratory Rate 16 07/26/21 17:31 Blood Pressure 117/86 07/26/21 15:54 Pulse Oximetry 94 07/26/21 17:31 MDM - Psych Medical Decision Making Patient is not suicidal or homicidal. Caregiver and supervisor of guidance and testing at [facility] are comfortable with him going home. Patient received a tele psychiatric evaluation by Dr. Howell. He feels patient is stable for discharge. Please refer to Dr. Gonzalez's note for specific psychiatric assessment. Return to ED precautions verbally given to patient and caregiver. Chart reviewed and patient discussed with midlevel. Agree with assessment and plan. Discharge Plan Discharge Patient Disposition: Home Clinical Impression: Depression, Aggressive behavior Condition: Stable Prescriptions: No Action acetaminophen [Tylenol Extra Strength] 500 mg tablet 500 mg PO TID PRN (Reason: pain) 0RF bupropion HCl [Wellbutrin XL] 150 mg tablet extended release 24 hr 150 mg PO QAM Qty: 30 2RF bupropion HCl [Wellbutrin XL] 300 mg tablet extended release 24 hr 300 mg PO QAM Qty: 30 2RF quetiapine [Seroquel] 100 mg tablet 100 mg PO .nightly Qty: 30 2RF trazodone 100 mg tablet 100 mg PO .nightly Qty: 30 2RF ziprasidone HCl [Geodon] 40 mg capsule 40 mg PO .at bed Qty: 30 2RF Rx Instructions: give with food (meal/snack) Give at 9pm pantoprazole [Protonix] 40 mg tablet,delayed release (DR/EC) 40 mg PO BID 14 Days Qty: 28 0RF multivitamin Tablet 1 tab PO DAILY Qty: 30 2RF Rx Instructions: Give at 9PM loratadine 10 mg Capsule 10 mg PO DAILY PRN (Reason: Allergic Symptoms) 0RF fluoride (sodium) [SF 5000 Plus] 1.1 % Cream 1 applic DENTAL DAILY 0RF naphazoline 0.012 % Drops 1 drp OPHTHALMIC (EYE) DAILY PRN (Reason: Dry Eyes) 0RF ondansetron 4 mg tablet,disintegrating 4 mg PO Q6H PRN (Reason: nausea and vomiting) Qty: 14 0RF metoclopramide HCl [Reglan] 10 mg tablet 10 mg PO Q6H PRN (Reason: nausea and vomiting) Qty: 20 0RF Discharge Orders: Discharge ED (Routine); Ordered 07/26/21 Ordered By: Evette Casper Referrals: Kenneth Bravo DO [Primary Care Provider] - Coding Level of Care Code ED Blending Plant Operator for Chg Fwd Exam Detailed
--- NOTE | 2021-07-26 17:10 | PC.NURSE ---
Evette Dawson states hold off on labs, patient has been evaluated by Dr. Howell and most likely will be going home.
[2021-07-26 17:31] VITALS: PULSE 88; RESP 16; O2SAT 94
== END 2021-07-26 17:32 | disposition home or self-care (01) ==
PROVIDERS: Emergency Provider Physician Assistant; PCP Internal Medicine
DX: F32.A Depression, unspecified (principal); F91.8 Other conduct disorders
CPT/HCPCS: 99282; Q3014

== ENCOUNTER 2021-09-02 09:01 | Outpatient (CLI) | payer MEDICAID, SELFPAY ==
--- NOTE | 2021-09-02 10:00 | NM_ITS ---
WS: [id number] NUCLEAR MEDICINE HIDA SCAN WITH GALLBLADDER EJECTION FRACTION HISTORY: R10.13 - Epigastric pain COMPARISON: 05/15/2021 TECHNIQUE: The patient was intravenously injected with 8.0 mCi of TC99m Mebrofenin. Immediate imaging over the right upper quadrant was followed by 5 minute image and additional images for a total of 60 minutes. Normal uptake of radiotracer throughout the liver. Activity identified in the gallbladder at 15 minutes and well distended by 60 minutes. Activity in the proximal small bowel was seen by 30 minutes. Good washout of the radiotracer from the liver by 60 minutes. The patient then drank 8 ounces of Ensure Plus. Ejection fraction at 60 minutes was 86%. Normal GB ej ection fraction is 35-75%. Post fatty meal symptoms: None. NM/NM hepatobiliary w phar* [id number] IMPRESSION: 1. Normal HIDA scan. 2. Normal gallbladder ejection fraction.
== END 2021-09-02 09:02 | disposition home or self-care (01) ==
LOC: RAD 09:08
PROVIDERS: PCP Internal Medicine; Visit Provider Surgery
DX: R10.13 Epigastric pain (principal); G89.29 Other chronic pain
CPT/HCPCS: 78227; A9537

== ENCOUNTER → 2021-09-08 10:52 | Outpatient (BNVA) | payer MEDICAID, SELFPAY | PROVIDERS: PCP Internal Medicine; Visit Provider Surgery | DX: R10.13 Epigastric pain (principal); G89.29 Other chronic pain | CPT/HCPCS: 99213 ==

== ENCOUNTER 2021-09-18 04:30 | Emergency (ER) | payer MEDICAID, SELFPAY ==
[2021-09-18 04:31] VITALS: BP 140/97; PULSE 98; RESP 16; TEMP 36.8; O2SAT 97; BMI 29.0
--- NOTE | 2021-09-18 04:31 | ED.C_ITS ---
Documented by User: Lucas Mccoy MD 10/04/21 14:58 HPI - Psych General: Chief Complaint: Psychiatric Symptoms Stated Complaint: SI Time Seen by Provider: 09/18/21 04:31 History of Present Illness: Mr. Colindres is a 26-year-old gentleman with history of depression, autism spectrum disorder, disruptive mood dysregulation disorder who presents to the emergency department due to behavioral concerns. He reports that over the past week or so he has had more difficulty with sleeping and staff is noted this as well despite his typical medication. Tonight he became frustrated and made suicidal statements threatening to harm himself. He currently denies suicidal or homicidal ideation and says that he was just frustrated and would never actually hurt himself. Otherwise denies any significant change from baseline medical complaints. No other specific changes in health, exacerbating, or alleviating factors identified. Onset (ago): week(s) History of same: Yes Review of Systems General: Reports: 10 or more systems reviewed and unremarkable except in HPI and below PFSH ED PFSH: Medical History Autistic disorder Disruptive mood dysregulation disorder Major depressive disorder, recurrent, moderate Psychiatric care Surgical History H/O esophagogastroduodenoscopy (05/30/21) History of foot surgery right- 2020 Social History Smoking and tobacco status: never smoked Physical Exam Const: COMMON NORMALS: alert GENERAL APPEARANCE: cooperative and well developed HENMT: COMMON NORMALS: normocephalic and atraumatic HEAD & SCALP: normocephalic and atraumatic Eye: COMMON NORMALS: conjunctivae normal CONJUNCTIVA: Yes conjunctivae normal SCLERA: sclerae normal Neck/C-Spine: COMMON NORMALS: supple GENERAL: Yes trachea midline Resp: COMMON NORMALS: normal respiratory effort EFFORT & INSPECTION: Yes able to speak in complete sentences Cardio: COMMON NORMALS: regular rate and regular rhythm RATE: regular rate RHYTHM: regular rhythm GI: COMMON NORMALS: Soft to palpation PALPATION: Yes Soft to palpation and No Tenderness to palpation present (GI) Extremity: GENERAL: Yes normal exam except as noted and No edema Neuro: COMMON NORMALS: moves all extremities SENSORIUM/ORIENTATION: Yes alert and No Orientation impaired Psych: COMMON NORMALS: mental status grossly normal and Normal thought process present THOUGHT PROCESS: Normal thought process present Course Vital Signs: Vital signs: Vital Signs Temperature 98.3 F 09/18/21 04:31 Pulse Rate 107 H 09/18/21 06:52 Respiratory Rate 18 09/18/21 06:52 Blood Pressure 140/97 09/18/21 06:52 Pulse Oximetry 97 09/18/21 04:31 Oxygen Delivery Me thod 09/18/21 04:31 MDM - Psych Medical Decision Making 26-year-old male with underlying psychiatric and medical conditions presenting with behavioral outburst though patient currently denies suicidal or homicidal ideation. Handed off to Dr. Berry pending completion of psychiatry service consult for disposition. Patient presents here with trouble sleeping he is not actively suicidal he has been seen here multiple times before did speak to Dr. Howell about the case we will increase his Seroquel he is stable for discharge he is to follow-up his PCP and return if worsening. Medical Records I reviewed the patient's medical records. Lab Data I reviewed the patient's lab results. Discharge Plan Discharge Patient Disposition: Home Clinical Impression: Outbursts of anger, Difficulty sleeping Condition: Stable Prescriptions: Changed Seroquel 100 mg tablet 200 mg PO .nightly Qty: 30 2RF No Action acetaminophen [Tylenol Extra Strength] 500 mg tablet 500 mg PO TID PRN (Reason: pain) pantoprazole [Protonix] 40 mg tablet,delayed release (DR/EC) 40 mg PO BID 14 Days Qty: 28 0RF sildenafil [Viagra] 100 mg tablet 100 mg PO DAILY PRN (Reason: sexual activity) Qty: 30 0RF Rx Instructions: administer 30 minutes to 4 hours before activity bupropion HCl [Wellbutrin XL] 150 mg tablet extended release 24 hr 150 mg PO QAM Qty: 30 2RF bupropion HCl [Wellbutrin XL] 300 mg tablet extended release 24 hr 300 mg PO QAM Qty: 30 2RF trazodone 100 mg tablet 100 mg PO .nightly Qty: 30 2RF ziprasidone HCl [Geodon] 40 mg capsule 40 mg PO .at bed Qty: 30 2RF Rx Instructions: give with food (meal/snack) Give at 9pm multivitamin Tablet 1 tab PO DAILY Qty: 30 2RF Rx Instructions: Give at 9PM loratadine 10 mg Capsule 10 mg PO DAILY PRN (Reason: Allergic Symptoms) fluoride (sodium) [SF 5000 Plus] 1.1 % Cream 1 applic DENTAL DAILY naphazoline 0.012 % Drops 1 drp OPHTHALMIC (EYE) DAILY PRN (Reason: Dry Eyes) ondansetron 4 mg tablet,disintegrating 4 mg PO Q6H PRN (Reason: nausea and vomiting) Qty: 14 0RF metoclopramide HCl [Reglan] 10 mg tablet 10 mg PO Q6H PRN (Reason: nausea and vomiting) Qty: 20 0RF Discharge Orders: Discharge ED (Routine); Ordered 09/18/21 Ordered By: Aga Berry Referrals: Kenneth Bravo DO [Primary Care Provider] - Discharge Diet: Usual diet Discharge Activity: Resume usual activity Patient Instructions: Sleep Activity Restrictions/Additional Instructions: Thank you for visiting the emergency department. You were seen and evaluated for suicidal statements in the context of being upset. After discussion with psychiatry service it is safe to continue outpatient management. Please follow-up with your psychiatric care provider. Return to the emergency department for anything that you are concerned about and feel needs emergency department evaluation. Coding Level of Care Code ED Recyclable Products Sorter for Chg Fwd Documented by User: Aga Berry MD 09/18/21 06:03 HPI - Psych General: Chief Complaint: Psychiatric Symptoms Stated Complaint: SI Time Seen by Provider: 09/18/21 04:31 [facility] ED PFSH: Medical History Autistic disorder Disruptive mood dysregulation disorder Major depressive disorder, recurrent, moderate Psychiatric care Surgical History H/O esophagogastroduodenoscopy (05/30/21) History of foot surgery right- 2020 Social History Smoking and tobacco status: never smoked Course Vital Signs: Vital signs: Vital Signs Temperature 98.3 F 09/18/21 04:31 Pulse Rate 107 H 09/18/21 06:52 Respiratory Rate 18 09/18/21 06:52 Blood Pressure 140/97 09/18/21 06:52 Pulse Oximetry 97 09/18/21 04:31 Oxygen Delivery Me thod 09/18/21 04:31 MDM - Psych Medical Decision Making Patient presents here with trouble sleeping he is not actively suicidal he has been seen here multiple times before did speak to Dr. Howell about the case we will increase his Seroquel he is stable for discharge he is to follow-up his PCP and return if worsening. Discharge Plan Discharge Patient Disposition: Home Clinical Impression: Outbursts of anger, Difficulty sleeping Condition: Stable Prescriptions: Changed Seroquel 100 mg tablet 200 mg PO .nightly Qty: 30 2RF No Action acetaminophen [Tylenol Extra Strength] 500 mg tablet 500 mg PO TID PRN (Reason: pain) pantoprazole [Protonix] 40 mg tablet,delayed release (DR/EC) 40 mg PO BID 14 Days Qty: 28 0RF sildenafil [Viagra] 100 mg tablet 100 mg PO DAILY PRN (Reason: sexual activity) Qty: 30 0RF Rx Instructions: administer 30 minutes to 4 hours before activity bupropion HCl [Wellbutrin XL] 150 mg tablet extended release 24 hr 150 mg PO QAM Qty: 30 2RF bupropion HCl [Wellbutrin XL] 300 mg tablet extended release 24 hr 300 mg PO QAM Qty: 30 2RF trazodone 100 mg tablet 100 mg PO .nightly Qty: 30 2RF ziprasidone HCl [Geodon] 40 mg capsule 40 mg PO .at bed Qty: 30 2RF Rx Instructions: give with food (meal/snack) Give at 9pm multivitamin Tablet 1 tab PO DAILY Qty: 30 2RF Rx Instructions: Give at 9PM loratadine 10 mg Capsule 10 mg PO DAILY PRN (Reason: Allergic Symptoms) fluoride (sodium) [SF 5000 Plus] 1.1 % Cream 1 applic DENTAL DAILY naphazoline 0.012 % Drops 1 drp OPHTHALMIC (EYE) DAILY PRN (Reason: Dry Eyes) ondansetron 4 mg tablet,disintegrating 4 mg PO Q6H PRN (Reason: nausea and vomiting) Qty: 14 0RF metoclopramide HCl [Reglan] 10 mg tablet 10 mg PO Q6H PRN (Reason: nausea and vomiting) Qty: 20 0RF Discharge Orders: Discharge ED (Routine); Ordered 09/18/21 Ordered By: Aga Berry Referrals: Kenneth Bravo, [Primary Care Provider] - Discharge Diet: Usual diet Discharge Activity: Resume usual activity Patient Instructions: Sleep Activity Restrictions/Additional Instructions: Thank you for visiting the emergency department. You were seen and evaluated for suicidal statements in the context of being upset. After discussion with psychiatry service it is safe to continue outpatient management. Please follow-up with your psychiatric care provider. Return to the emergency department for anything that you are concerned about and feel needs emergency department evaluation. Coding Level of Care Code ED Recyclable Products Sorter for Alva Che
[2021-09-18 04:41] VITALS: BP 140/97; PULSE 107; RESP 18
[2021-09-18 06:36] VITALS: BP 140/97; PULSE 107; RESP 18
[2021-09-18 06:52] VITALS: BP 140/97; PULSE 107; RESP 18
== END 2021-09-18 06:54 | disposition home or self-care (01) ==
PROVIDERS: Emergency Provider Emergency Medicine; PCP Internal Medicine
DX: R45.4 Irritability and anger (principal); G47.9 Sleep disorder, unspecified; F84.0 Autistic disorder
CPT/HCPCS: 99283

== ENCOUNTER 2021-10-05 19:10 | Emergency (ER) | payer MEDICAID, SELFPAY ==
[2021-10-05 19:13] VITALS: BP 128/77; PULSE 109; RESP 16; TEMP 36.9; O2SAT 95; BMI 29.0
--- NOTE | 2021-10-05 19:59 | ED_ITS ---
Documented by User: Guy Hernandez MD 10/05/21 22:54 HPI - Anxiety General: Chief Complaint: Anxiety Stated Complaint: stressed out Time Seen by Provider: 10/05/21 19:56 History of Present Illness: 26-year-old presents due to concern for homicidal ideation. He states he is not getting his Tums and omeprazole at the assisted living facility where he is staying. States this is making him angry and want to hurt people. Does not have a concrete plan. Denies any desire to hurt himself. Does report some loose stools recently but denies recent antibiotic use or travel. Denies any abdominal pain. Review of Systems Narrative: - CONSTITUTIONAL: Denies weight loss, fever and chills. - HEENT: Denies changes in vision and hearing. - RESPIRATORY: Denies SOB and cough. - CV: Denies palpitations and CP. - GI: As above - : Denies dysuria and urinary frequency. - MSK: Denies myalgia and joint pain. - SKIN: Denies rash and pruritus. - NEUROLOGICAL: Denies headache, weakness, numbness and syncope. - PSYCHIATRIC: As above [facility] ED PFSH: Medical History Autistic disorder Disruptive mood dysregulation disorder Major depressive disorder, recurrent, moderate Psychiatric care Surgical History H/O esophagogastroduodenoscopy (05/30/21) History of foot surgery right- 2020 Social History Smoking and tobacco status: never smoked Physical Exam Narrative: EXAM NARRATIVE: - GENERAL: Alert and oriented x 3. No acute distress. Well-nourished. - EYES: EOMI. Anicteric. - HENT: Atraumatic, no C-spine tenderness. Moist mucous membranes. No scleral icterus. No cervical lymphadenopathy. - LUNGS: Clear to auscultation bilaterally. No accessory muscle use. Equal lung sounds bilaterally. No respiratory distress. - CARDIOVASCULAR: Regular rate and rhythm. No murmur. No JVD. - ABDOMEN: Soft, non-tender and non-distended. Negative CVA tenderness bilaterally, no rebound or guarding, negative Zhu sign. No palpable masses. - EXTREMITIES: No edema. Non-tender. - SKIN: No rashes or lesions. Warm. - NEUROLOGIC: No meningismus or focal neurological deficits. CN II-XII grossly intact. - PSYCHIATRIC: Endorses homicidal ideation Course Vital Signs: Vital signs: Vital Signs Temperature 98.4 F 10/05/21 19:13 Pulse Rate 130 H 10/06/21 00:03 Respiratory Rate 14 10/06/21 00:03 Blood Pressure 120/82 10/06/21 00:03 Pulse Oximetry 97 10/06/21 00:03 Oxygen Delivery Me thod 10/05/21 19:13 MDM - Anxiety Medical Decision Making Patient presents complaining of homicidal ideation and aggression. Pending evaluation by psychiatry. Lab Data : 10/05/21 20:04 10/05/21 20:04 Laboratory Results WBC 7.5 10^3/uL (4.0-10.0) 10/05/21 20:04 RBC 5.28 10^6/uL (4.1-5.3) 10/05/21 20:04 Hgb 16.4 g/dL (11.7-16.6) 10/05/21 20:04 Hct 47.6 % (42.0-52.0) 10/05/21 20:04 MCV 90.2 fl (80-94) 10/05/21 20:04 MCH 31.1 pg (28.0-34.0) 10/05/21 20:04 MCHC 34.5 g/dL (30.0-36.0) 10/05/21 20:04 RDW 11.6 % (12.1-15.1) L 10/05/21 20:04 Plt Count 177 10^3/cmm (130-400) 10/05/21 20:04 MPV 10.3 fL (7.4-10.4) 10/05/21 20:04 Neut % (Auto) 66.2 % 10/05/21 20:04 Lymph % (Auto) 23.6 % 10/05/21 20:04 [place] % (Auto) 7.6 % 10/05/21 20:04 Eos % (Auto) 1.7 % 10/05/21 20:04 Baso % (Auto) 0.8 % 10/05/21 20:04 Neut # (Auto) 4.95 10^3/uL (1.8-7.7) 10/05/21 20:04 Lymph # (Auto) 1.8 10^3/uL (0.8-4.8) 10/05/21 20:04 [place] # (Auto) 0.6 10^3/uL (0.2-0.9) 10/05/21 20:04 Eos # (Auto) 0.1 10^3/uL (0.0-0.8) 10/05/21 20:04 Baso # (Auto) 0.1 10^3/uL (0.0-0.1) 10/05/21 20:04 Nucleated RBC % (auto) 0 % 10/05/21 20:04 Nucleated RBCs # 0.0 /100WBC 10/05/21 20:04 Sodium 143 mmol/L (136-145) 10/05/21 20:04 Potassium 4.0 mmol/L (3.5-5.1) 10/05/21 20:04 Chloride 108 mmol/L (98-107) H 10/05/21 20:04 Carbon Dioxide 25 mmol/L (22-29) 10/05/21 20:04 Anion Gap 14.0 (5-19) 10/05/21 20:04 BUN 10 mg/dL (6-20) 10/05/21 20:04 Creatinine 1.0 mg/dL (0.7-1.2) 10/05/21 20:04 GFR Calculation 89.6 mL/min (90-130) L 10/05/21 20:04 Glucose 109 mg/dL (65-115) 10/05/21 20:04 Calculated Osmolality 296 mOsm/kg (285-295) H 10/05/21 20:04 Calcium 9.6 mg/dL (8.5-10.5) 10/05/21 20:04 Total Bilirubin 0.4 mg/dL (0.15-1.2) 10/05/21 20:04 AST 20 U/L (0-40) 10/05/21 20:04 ALT 40 U/L (0-41) 10/05/21 20:04 Alkaline Phosphatase 99 U/L (40-130) 10/05/21 20:04 Total Protein 7.0 g/dL (6.6-8.7) 10/05/21 20:04 Albumin 4.3 g/dL (3.5-5.2) 10/05/21 20:04 Globulin 2.7 g/dL (1.3-4.6) 10/05/21 20:04 TSH 0.72 uIU/mL (0.27-4.20) 10/05/21 20:04 Salicylates 3.0 mg/dL (3-10) 10/05/21 20:04 Acetaminophen < 5.0 ug/mL (10-30) L 10/05/21 20:04 Discharge Plan Discharge Patient Disposition: Admitted As Inpatient Clinical Impression: Autistic disorder, Homicidal ideation Condition: Stable Prescriptions: No Action acetaminophen [Tylenol Extra Strength] 500 mg tablet 500 mg PO TID PRN (Reason: pain) pantoprazole [Protonix] 40 mg tablet,delayed release (DR/EC) 40 mg PO BID 14 Days Qty: 28 0RF sildenafil [Viagra] 100 mg tablet 100 mg PO DAILY PRN (Reason: sexual activity) Qty: 30 0RF Rx Instructions: administer 30 minutes to 4 hours before activity bupropion HCl [Wellbutrin XL] 150 mg tablet extended release 24 hr 150 mg PO QAM Qty: 30 2RF bupropion HCl [Wellbutrin XL] 300 mg tablet extended release 24 hr 300 mg PO QAM Qty: 30 2RF trazodone 100 mg tablet 100 mg PO .nightly Qty: 30 2RF ziprasidone HCl [Geodon] 40 mg capsule 40 mg PO .at bed Qty: 30 2RF Rx Instructions: give with food (meal/snack) Give at 9pm multivitamin Tablet 1 tab PO DAILY Qty: 30 2RF Rx Instructions: Give at 9PM loratadine 10 mg Capsule 10 mg PO DAILY PRN (Reason: Allergic Symptoms) fluoride (sodium) [SF 5000 Plus] 1.1 % Cream 1 applic DENTAL DAILY naphazoline 0.012 % Drops 1 drp OPHTHALMIC (EYE) DAILY PRN (Reason: Dry Eyes) ondansetron 4 mg tablet,disintegrating 4 mg PO Q6H PRN (Reason: nausea and vomiting) Qty: 14 0RF Seroquel 100 mg tablet 200 mg PO .nightly Qty: 30 2RF metoclopramide HCl [Reglan] 10 mg tablet 10 mg PO Q6H PRN (Reason: nausea and vomiting) Qty: 20 0RF Referrals: Kenneth Bravo DO [Primary Care Provider] - Coding Level of Care Code ED Metallography Teacher for Chg Fwd Documented by User: Milo Locke DO 10/06/21 00:58 HPI - Anxiety General: Chief Complaint: Anxiety Stated Complaint: stressed out Time Seen by Provider: 10/05/21 19:56 PFSH ED PFSH: Medical History Autistic disorder Disruptive mood dysregulation disorder Major depressive disorder, recurrent, moderate Psychiatric care Surgical History H/O esophagogastroduodenoscopy (05/30/21) History of foot surgery right- 2020 Social History Smoking and tobacco status: never smoked Course Vital Signs: Vital signs: Vital Signs Temperature 98.4 F 10/05/21 19:13 Pulse Rate 130 H 10/06/21 00:03 Respiratory Rate 14 10/06/21 00:03 Blood Pressure 120/82 10/06/21 00:03 Pulse Oximetry 97 10/06/21 00:03 Oxygen Delivery Me thod 10/05/21 19:13 MDM - Anxiety Medical Decision Making Patient presents complaining of homicidal ideation and aggression. Pending evaluation by psychiatry. 26-year-old male checked out to me by the previous physician at shift change. This young man lives in a long term environment. He became agitated there, and has feelings of wanting to harm others as above. Spoke with psychiatry about t his patient, who interviewed the patient via telemedicine in the room. His feeling is that the patient remains agitated, and it may not be the best plan to allow him back to the home environment unless he is calm and believes he can go back. The patient is still agitated, and does not believe going back to the same environment is a good idea at this point, as he is still having distasteful thoughts. Medically, he is completely stable. We have no beds available at our facility here. We will look at other facilities to see if transfer is appropriate. He has been calm, and has not required restraints or sedation in any way. Potential exists for discharges later this morning in the event we cannot find a bed. Lab Data : 10/05/21 20:04 10/05/21 20:04 Laboratory Results WBC 7.5 10^3/uL (4.0-10.0) 10/05/21 20:04 RBC 5.28 10^6/uL (4.1-5.3) 10/05/21 20:04 Hgb 16.4 g/dL (11.7-16.6) 10/05/21 20:04 Hct 47.6 % (42.0-52.0) 10/05/21 20:04 MCV 90.2 fl (80-94) 10/05/21 20:04 MCH 31.1 pg (28.0-34.0) 10/05/21 20:04 MCHC 34.5 g/dL (30.0-36.0) 10/05/21 20:04 RDW 11.6 % (12.1-15.1) L 10/05/21 20:04 Plt Count 177 10^3/cmm (130-400) 10/05/21 20:04 MPV 10.3 fL (7.4-10.4) 10/05/21 20:04 Neut % (Auto) 66.2 % 10/05/21 20:04 Lymph % (Auto) 23.6 % 10/05/21 20:04 [place] % (Auto) 7.6 % 10/05/21 20:04 Eos % (Auto) 1.7 % 10/05/21 20:04 Baso % (Auto) 0.8 % 10/05/21 20:04 Neut # (Auto) 4.95 10^3/uL (1.8-7.7) 10/05/21 20:04 Lymph # (Auto) 1.8 10^3/uL (0.8-4.8) 10/05/21 20:04 [place] # (Auto) 0.6 10^3/uL (0.2-0.9) 10/05/21 20:04 Eos # (Auto) 0.1 10^3/uL (0.0-0.8) 10/05/21 20:04 Baso # (Auto) 0.1 10^3/uL (0.0-0.1) 10/05/21 20:04 Nucleated RBC % (auto) 0 % 10/05/21 20:04 Nucleated RBCs # 0.0 /100WBC 10/05/21 20:04 Sodium 143 mmol/L (136-145) 10/05/21 20:04 Potassium 4.0 mmol/L (3.5-5.1) 10/05/21 20:04 Chloride 108 mmol/L (98-107) H 10/05/21 20:04 Carbon Dioxide 25 mmol/L (22-29) 10/05/21 20:04 Anion Gap 14.0 (5-19) 10/05/21 20:04 BUN 10 mg/dL (6-20) 10/05/21 20:04 Creatinine 1.0 mg/dL (0.7-1.2) 10/05/21 20:04 GFR Calculation 89.6 mL/min (90-130) L 10/05/21 20:04 Glucose 109 mg/dL (65-115) 10/05/21 20:04 Calculated Osmolality 296 mOsm/kg (285-295) H 10/05/21 20:04 Calcium 9.6 mg/dL (8.5-10.5) 10/05/21 20:04 Total Bilirubin 0.4 mg/dL (0.15-1.2) 10/05/21 20:04 AST 20 U/L (0-40) 10/05/21 20:04 ALT 40 U/L (0-41) 10/05/21 20:04 Alkaline Phosphatase 99 U/L (40-130) 10/05/21 20:04 Total Protein 7.0 g/dL (6.6-8.7) 10/05/21 20:04 Albumin 4.3 g/dL (3.5-5.2) 10/05/21 20:04 Globulin 2.7 g/dL (1.3-4.6) 10/05/21 20:04 TSH 0.72 uIU/mL (0.27-4.20) 10/05/21 20:04 Salicylates 3.0 mg/dL (3-10) 10/05/21 20:04 Acetaminophen < 5.0 ug/mL (10-30) L 10/05/21 20:04 Discharge Plan Discharge Patient Disposition: Admitted As Inpatient Clinical Impression: Autistic disorder, Homicidal ideation Condition: Stable Prescriptions: No Action acetaminophen [Tylenol Extra Strength] 500 mg tablet 500 mg PO TID PRN (Reason: pain) pantoprazole [Protonix] 40 mg tablet,delayed release (DR/EC) 40 mg PO BID 14 Days Qty: 28 0RF sildenafil [Viagra] 100 mg tablet 100 mg PO DAILY PRN (Reason: sexual activity) Qty: 30 0RF Rx Instructions: administer 30 minutes to 4 hours before activity bupropion HCl [Wellbutrin XL] 150 mg tablet extended release 24 hr 150 mg PO QAM Qty: 30 2RF bupropion HCl [Wellbutrin XL] 300 mg tablet extended release 24 hr 300 mg PO QAM Qty: 30 2RF trazodone 100 mg tablet 100 mg PO .nightly Qty: 30 2RF ziprasidone HCl [Geodon] 40 mg capsule 40 mg PO .at bed Qty: 30 2RF Rx Instructions: give with food (meal/snack) Give at 9pm multivitamin Tablet 1 tab PO DAILY Qty: 30 2RF Rx Instructions: Give at 9PM loratadine 10 mg Capsule 10 mg PO DAILY PRN (Reason: Allergic Symptoms) fluoride (sodium) [SF 5000 Plus] 1.1 % Cream 1 applic DENTAL DAILY naphazoline 0.012 % Drops 1 drp OPHTHALMIC (EYE) DAILY PRN (Reason: Dry Eyes) ondansetron 4 mg tablet,disintegrating 4 mg PO Q6H PRN (Reason: nausea and vomiting) Qty: 14 0RF Seroquel 100 mg tablet 200 mg PO .nightly Qty: 30 2RF metoclopramide HCl [Reglan] 10 mg tablet 10 mg PO Q6H PRN (Reason: nausea and vomiting) Qty: 20 0RF Referrals: Kenneth Bravo DO [Primary Care Provider] - Coding Level of Care Code ED Metallography Teacher for Alva Che
[2021-10-05 20:15] LABS: Basophils # 0.1 10^3/uL (0.0-0.1); Basophils % 0.8 %; Eosinophils # 0.1 10^3/uL (0.0-0.8); Eosinophils % 1.7 %; Hematocrit 47.6 % (42.0-52.0); Hemoglobin 16.4 g/dL (11.7-16.6); Lymphocytes # 1.8 10^3/uL (0.8-4.8); Lymphocytes % 23.6 %; Mean Corpuscular HGB Conc 34.5 g/dL (30.0-36.0); Mean Corpuscular Hemoglobin 31.1 pg (28.0-34.0); Mean Corpuscular Volume 90.2 fl (80-94); Mean Platelet Volume 10.3 fL (7.4-10.4); Monocytes # 0.6 10^3/uL (0.2-0.9); Monocytes % 7.6 %; Neutrophils # 4.95 10^3/uL (1.8-7.7); Neutrophils % 66.2 %; Nucleated Red Blood Cells % 0 %; Platelet Count 177 10^3/cmm (130-400); Red Blood Count 5.28 10^6/uL (4.1-5.3); Red Cell Distribution Width 11.6 % (12.1-15.1); White Blood Count 7.5 10^3/uL (4.0-10.0)
[2021-10-05 20:43] LABS: Alanine Aminotransferase 40 U/L (0-41); Albumin Level 4.3 g/dL (3.5-5.2); Alkaline Phosphatase 99 U/L (40-130); Aspartate Amino Transferase 20 U/L (0-40); Blood Urea Nitrogen 10 mg/dL (6-20); Calcium 9.6 mg/dL (8.5-10.5); Carbon Dioxide 25 mmol/L (22-29); Chloride 108 mmol/L (98-107); Globulin 2.7 g/dL (1.3-4.6); Glomerular Filtration Rate 89.6 mL/min (90-130); Glucose 109 mg/dL (65-115); Osmolality Calculated 296 mOsm/kg (285-295); Sodium 143 mmol/L (136-145); Thyroid Stimulating Hormone 0.72 uIU/mL (0.27-4.20); Total Bilirubin 0.4 mg/dL (0.15-1.2)
[2021-10-05 20:46] LABS: Acetaminophen < 5.0 ug/mL (10-30)
[2021-10-06 00:03] VITALS: BP 120/82; PULSE 130; RESP 14; O2SAT 97
[2021-10-06] MEDS: trazodone 100 mg Tablet PO (00:37)
[2021-10-06] MEDS: quetiapine 100 mg Tablet 200 MG PO (00:37)
[2021-10-06] MEDS: famotidine 20 mg Tablet PO (00:53)
[2021-10-06] MEDS: calcium carbonate 500 mg Chew Tablet PO (00:53)
[2021-10-06 12:31] VITALS: BP 185/67; PULSE 88; RESP 18; O2SAT 98
--- NOTE | 2021-10-06 15:06 | W.ED.ANXIETY ---
HPI - Anxiety General: Chief Complaint: Anxiety Stated Complaint: stressed out Time Seen by Provider: 10/05/21 19:56 Source: patient Mode of arrival: ambulatory History of Present Illness: 26-year-old male presents emergency room from independent living.Care assumed at change of shift. Previous notes reviewed. Patient has been well behaved overnight. He was brought in because he had a behavioral outburst after he did not receive times and what he felt was a timely fashion patient is well acquainted with our services in the emergency room and psychiatry care. [facility] ED PFSH: Medical History Autistic disorder Disruptive mood dysregulation disorder Major depressive disorder, recurrent, moderate Psychiatric care Surgical History H/O esophagogastroduodenoscopy (05/30/21) History of foot surgery right- 2020 Social History Smoking and tobacco status: never smoked Course Vital Signs: Vital signs: Vital Signs Temperature 98.4 F 10/05/21 19:13 Pulse Rate 88 10/06/21 15:15 Respiratory Rate 14 10/06/21 15:15 Blood Pressure 175/89 10/06/21 15:15 Pulse Oximetry 98 10/06/21 15:15 Oxygen Delivery Me thod 10/06/21 12:31 MDM - Anxiety Medical Decision Making Care assumed at change of shift. Discussed with psychiatry patient has calm down at this point is safe to be discharged follow-up with his routine outpatient psychiatry team. Medical Records I reviewed the patient's medical records. Lab Data I reviewed the patient's lab results. : 10/05/21 20:04 10/05/21 20:04 Laboratory Results WBC 7.5 10^3/uL (4.0-10.0) 10/05/21 20:04 RBC 5.28 10^6/uL (4.1-5.3) 10/05/21 20:04 Hgb 16.4 g/dL (11.7-16.6) 10/05/21 20:04 Hct 47.6 % (42.0-52.0) 10/05/21 20:04 MCV 90.2 fl (80-94) 10/05/21 20:04 MCH 31.1 pg (28.0-34.0) 10/05/21 20:04 MCHC 34.5 g/dL (30.0-36.0) 10/05/21 20:04 RDW 11.6 % (12.1-15.1) L 10/05/21 20:04 Plt Count 177 10^3/cmm (130-400) 10/05/21 20:04 MPV 10.3 fL (7.4-10.4) 10/05/21 20:04 Neut % (Auto) 66.2 % 10/05/21 20:04 Lymph % (Auto) 23.6 % 10/05/21 20:04 [place] % (Auto) 7.6 % 10/05/21 20:04 Eos % (Auto) 1.7 % 10/05/21 20:04 Baso % (Auto) 0.8 % 10/05/21 20:04 Neut # (Auto) 4.95 10^3/uL (1.8-7.7) 10/05/21 20:04 Lymph # (Auto) 1.8 10^3/uL (0.8-4.8) 10/05/21 20:04 [place] # (Auto) 0.6 10^3/uL (0.2-0.9) 10/05/21 20:04 Eos # (Auto) 0.1 10^3/uL (0.0-0.8) 10/05/21 20:04 Baso # (Auto) 0.1 10^3/uL (0.0-0.1) 10/05/21 20:04 Nucleated RBC % (auto) 0 % 10/05/21 20:04 Nucleated RBCs # 0.0 /100WBC 10/05/21 20:04 Sodium 143 mmol/L (136-145) 10/05/21 20:04 Potassium 4.0 mmol/L (3.5-5.1) 10/05/21 20:04 Chloride 108 mmol/L (98-107) H 10/05/21 20:04 Carbon Dioxide 25 mmol/L (22-29) 10/05/21 20:04 Anion Gap 14.0 (5-19) 10/05/21 20:04 BUN 10 mg/dL (6-20) 10/05/21 20:04 Creatinine 1.0 mg/dL (0.7-1.2) 10/05/21 20:04 GFR Calculation 89.6 mL/min (90-130) L 10/05/21 20:04 Glucose 109 mg/dL (65-115) 10/05/21 20:04 Calculated Osmolality 296 mOsm/kg (285-295) H 10/05/21 20:04 Calcium 9.6 mg/dL (8.5-10.5) 10/05/21 20:04 Total Bilirubin 0.4 mg/dL (0.15-1.2) 10/05/21 20:04 AST 20 U/L (0-40) 10/05/21 20:04 ALT 40 U/L (0-41) 10/05/21 20:04 Alkaline Phosphatase 99 U/L (40-130) 10/05/21 20:04 Total Protein 7.0 g/dL (6.6-8.7) 10/05/21 20:04 Albumin 4.3 g/dL (3.5-5.2) 10/05/21 20:04 Globulin 2.7 g/dL (1.3-4.6) 10/05/21 20:04 TSH 0.72 uIU/mL (0.27-4.20) 10/05/21 20:04 Salicylates 3.0 mg/dL (3-10) 10/05/21 20:04 Acetaminophen < 5.0 ug/mL (10-30) L 10/05/21 20:04 Discharge Plan Discharge Patient Disposition: Home Clinical Impression: Autistic disorder, Homicidal ideation Condition: Stable Prescriptions: No Action acetaminophen [Tylenol Extra Strength] 500 mg tablet 500 mg PO TID PRN (Reason: pain) fluoride (sodium) [SF 5000 Plus] 1.1 % Cream 1 applic DENTAL DAILY@21 ondansetron 4 mg tablet,disintegrating 4 mg PO Q6H PRN (Reason: nausea and vomiting) Qty: 14 0RF metoclopramide HCl [Reglan] 10 mg tablet 10 mg PO Q6H PRN (Reason: nausea and vomiting) Qty: 20 0RF Claritin 10 mg Tablet 10 mg PO DAILY PRN (Reason: Allergy Symptoms) Daily-Shabbir (with folic acid) 400 mcg tablet 1 tab PO DAILY@21 Wellbutrin XL 300 mg tablet extended release 24 hr 300 mg PO DAILY@09 Wellbutrin XL 150 mg tablet extended release 24 hr 150 mg PO DAILY@09 Prilosec 40 mg Capsule,Delayed Release(Dr/Ec) 40 mg PO BID@, quetiapine 100 mg tablet 100 mg PO BEDTIME@21 Tums 500 500 mg calcium (1,250 mg) Tablet,Chewable 500 mg PO Q4H PRN (Reason: Stomach Upset) Clear Eyes Triple Action See Rx Instructions .ROUTE .COMPLEX Rx Instructions: as directed on package as needed trazodone 100 mg tablet 100 mg PO BEDTIME@21 ziprasidone HCl [Geodon] 40 mg capsule 40 mg PO BEDTIME@21 Discharge Orders: Discharge ED (Routine); Ordered 10/06/21 Ordered By: Gamal Parekh Referrals: Kenneth Bravo DO [Primary Care Provider] - Discharge Diet: Usual diet Patient Instructions: Opioid Safety Coding Level of Care Code ED Mis Director for Alva Che
[2021-10-06 15:15] VITALS: BP 175/89; PULSE 88; RESP 14; O2SAT 98
== END 2021-10-06 15:16 | disposition home or self-care (01) ==
PROVIDERS: Emergency Medicine; Emergency Provider Family Medicine; PCP Internal Medicine
DX: R45.850 Homicidal ideations (principal); F84.0 Autistic disorder
CPT/HCPCS: 80053; 80307; 84443; 85025; 99283

== ENCOUNTER 2021-11-19 12:29 | Emergency (ER) | payer MEDICAID, SELFPAY ==
[2021-11-19 12:51] VITALS: BP 156/98; PULSE 89; RESP 18; TEMP 36.9; O2SAT 97; BMI 29.0
--- NOTE | 2021-11-19 12:53 | W.ED.PSYCHS ---
HPI - Psych General: Chief Complaint: Psychiatric Symptoms Stated Complaint: SI Time Seen by Provider: 11/19/21 12:44 Source: patient Mode of arrival: ambulatory Limitations: no limitations History of Present Illness: 26 yo male presents the ER with compalints of anger outburst. Has had this multiple times int eh past, He is settled down and is no longer angry or acting out. he did make several superficial cuts. to arms and legs. His last tetanus was approxiamtely a motnh ago. complaint: other (anger outbursts) Onset (ago): hour(s) Duration: intermittent Relieving factors: none Exacerbating factors: none Associated psychiatric symptoms: none Associated symptoms: Deny auditory hallucinations, visual hallucinations, delusions, depression, homicidal ideation, suicidal ideation or racing thoughts Treatments prior to arrival: none Review of Systems Const: Denies: fever(s), chills, body aches, change in appetite, fatigue or malaise ENMT: Denies: throat pain, ear or mastoid pain, nasal discharge or nasal congestion Card: Denies: chest pain, edema, dyspnea on exertion or orthopnea Resp: Denies: dyspnea, productive cough or non-productive cough GI: Denies: abdominal pain, nausea, vomiting, hematemesis, coffee ground emesis, diarrhea, constipation, bloating, hematochezia or melena : Denies: flank pain, dysuria, urinary frequency or urinary urgency Skin/Breast: Denies: rash or pruritus Psych: Denies: depression, visual hallucinations, auditory hallucinations, suicidal ideation or homicidal ideation [facility] ED PFSH: Medical History Autistic disorder Disruptive mood dysregulation disorder Major depressive disorder, recurrent, moderate Psychiatric care Surgical History H/O esophagogastroduodenoscopy (05/30/21) History of foot surgery right- 2020 Social History Smoking and tobacco status: never smoked Physical Exam Const: GENERAL APPEARANCE: cooperative and comfortable ORIENTATION/CONSCIOUSNESS: Yes awake, Yes oriented to person, Yes oriented to place and Yes oriented to time HENMT: COMMON NORMALS: normocephalic, atraumatic, hearing grossly normal bilaterally, external ears normal, EAC's normal, TM's normal bilaterally, Normal nasal mucous membranes and turbinates present, moist oral mucous membranes and oropharynx normal HEAD & SCALP: normocephalic and atraumatic NOSE: Normal nasal mucous membranes and turbinates present EXTERNAL EAR: Yes external ears normal EXTERNAL AUDITORY CANAL: EAC's normal TYMPANIC MEMBRANE: TM's normal bilaterally Resp: COMMON NORMALS: normal respiratory effort, No retractions, No use of accessory muscles and clear to auscultation bilaterally AUSCULTATION: clear to auscultation bilaterally Cardio: COMMON NORMALS: regular rate, regular rhythm and No murmurs present (Cardio) RATE: regular rate RHYTHM: regular rhythm GI: COMMON NORMALS: Soft to palpation and No hepatosplenomegaly present AUSCULTATION: Yes normoactive bowel sounds PALPATION: Yes Soft to palpation, No Tenderness to palpation present (GI), No Guarding due to palpation present (GI) and Yes No hepatosplenomegaly present Extremity: COMMON NORMALS: normal to inspection, capillary refill normal, no clubbing, cyanosis or edema, no calf tenderness and no pedal edema Neuro: SENSORIUM/ORIENTATION: Yes oriented to person, Yes oriented to place and Yes oriented to time Psych: THOUGHT CONTENT: No delusions Skin: COMMON NORMALS: no rashes or lesions noted GENERAL SKIN EXAM: no rashes or lesions noted Course Vital Signs: Vital signs: Vital Signs Temperature 98.5 F 11/19/21 12:51 Pulse Rate 89 11/19/21 12:51 Respiratory Rate 18 11/19/21 12:51 Blood Pressure 156/98 11/19/21 12:51 Pulse Oximetry 97 11/19/21 12:51 Oxygen Delivery Me thod 11/19/21 12:51 [facility] - Psych Medical Decision Making Josh is very well-known to the ER and is inpatient psych unit. Dr. Howell is seen multiple times he is not truly suicidal at this point. He inflict self-harm mostly for attention when he gets his explosive outburst but he is never advanced any kind of significant lethality in the past. When I discussed with him that we would probably not admit him he became little bit frustrated but he was tolerable of the idea. I did call and discussed this case with Dr. Howell he was very familiar with the patient off of previous evaluations and given the current circumstances again does not feel that the patient warrants inpatient treatment I would also agree having seen the patient multiple times as well. We reviewed his medication list Dr. Howell did not feel that there is any medications that need to be changed as well the typical pattern for Josh has been that he gets angry he has an explosive outburst and then columns down and and is usually able to be dismissed. He is calm down ready I think we can dismiss him we will give him a single dose of Ativan prior to discharge. Have him follow[facility] at [facility]. Medical Records I reviewed the patient's medical records. Lab Data I reviewed the patient's lab results. Discharge Plan Discharge Patient Disposition: Home Clinical Impression: Disruptive mood dysregulation disorder, Autistic disorder Condition: Stable Prescriptions: No Action acetaminophen [Tylenol Extra Strength] 500 mg tablet 500 mg PO TID PRN (Reason: pain) bupropion HCl [Wellbutrin XL] 150 mg tablet extended release 24 hr 150 mg PO DAILY@09 Qty: 30 1RF bupropion HCl [Wellbutrin XL] 300 mg tablet extended release 24 hr 300 mg PO DAILY@09 Qty: 30 1RF trazodone 100 mg tablet 100 mg PO BEDTIME@21 Qty: 30 1RF ziprasidone HCl [Geodon] 40 mg capsule 40 mg PO BEDTIME@21 Qty: 30 1RF quetiapine [Seroquel] 200 mg tablet 200 mg PO .HS Qty: 30 1RF fluoride (sodium) [SF 5000 Plus] 1.1 % Cream 1 applic DENTAL DAILY@21 ondansetron 4 mg tablet,disintegrating 4 mg PO Q6H PRN (Reason: nausea and vomiting) Qty: 14 0RF metoclopramide HCl [Reglan] 10 mg tablet 10 mg PO Q6H PRN (Reason: nausea and vomiting) Qty: 20 0RF Claritin 10 mg Tablet 10 mg PO DAILY PRN (Reason: Allergy Symptoms) Daily-Shabbir (with folic acid) 400 mcg tablet 1 tab PO DAILY@21 Prilosec 40 mg Capsule,Delayed Release(Dr/Ec) 40 mg PO BID@09,21 Tums 500 500 mg calcium (1,250 mg) Tablet,Chewable 500 mg PO Q4H PRN (Reason: Stomach Upset) Clear Eyes Triple Action See Rx Instructions .ROUTE .COMPLEX Rx Instructions: as directed on package as needed Discharge Orders: Discharge ED (Routine); Ordered 11/19/21 Ordered By: Gamal Parekh Referrals: Kenneth Bravo, [Primary Care Provider] - Discharge Diet: Usual diet Discharge Activity: Increase activity as tolerated Patient Instructions: Opioid Safety, Pain Management Activity Restrictions/Additional Instructions: Follow-up with C as previously scheduled. Coding Level of Care Code ED Oil Treater for Chg Fwd Exam Comprehensive
[2021-11-19] MEDS: LORazepam 2 mg Tablet PO (13:09)
--- NOTE | 2021-11-19 13:31 | PC.NURSE ---
Caregiver stepped outside, hospital sitter watching patient. Patient is calm and cooperative. This RN provided sandwich, and drink. Awaiting transportation back home at this time
--- NOTE | 2021-11-19 14:10 | PC.NURSE ---
Pt is willing to go home with caregiver at this time. Caregivers printing and stamping supervisor will transport patient and caregiver home. Pt is a/o x 4, calm and cooperative. Pt will ambulate with this RN to transport van.
[2021-11-19 14:11] VITALS: BP 135/90; PULSE 84; RESP 18; O2SAT 99
== END 2021-11-19 14:17 | disposition home or self-care (01) ==
PROVIDERS: Emergency Provider Family Medicine; PCP Internal Medicine
DX: F34.81 Disruptive mood dysregulation disorder (principal); F84.0 Autistic disorder
CPT/HCPCS: 99283

== ENCOUNTER 2021-11-22 03:35 | Emergency (ER) | payer MEDICAID, SELFPAY ==
[2021-11-22 03:40] VITALS: BP 138/92; PULSE 88; RESP 16; TEMP 36.7; O2SAT 96
--- NOTE | 2021-11-22 03:40 | W.ED.ABDPA2 ---
HPI - Abdominal Pain General: Chief Complaint: Headache Stated Complaint: PAREDES Time Seen by Provider: 11/22/21 03:37 Source: patient and EMS Mode of arrival: EMS Limitations: no limitations History of Present Illness: 26-year-old male who is very well-known here has multiple psychiatric issues. He states that he did not get his psychiatric meds tonight has not been able to sleep he has had a slight abdominal cramping and headache and states that he just feels off. He denies any suicidal ideation does have a history of depression no suicidal plan. He states that he just needs his nighttime meds. Associated Symptoms: Denies chills, dysuria and fever(s) Review of Systems Const: Denies: fever(s), chills, body aches or change in appetite Eyes: Denies: blurry vision or eye discomfort ENMT: Denies: throat pain or dental pain Card: Denies: chest pain Resp: Denies: dyspnea GI: Reports: abdominal pain : Denies: dysuria Musc: Denies: neck pain or back pain Skin/Breast: Denies: rash Neuro: Denies: headache(s) Psych: Reports: anxiety Mingo/Lymph: Denies: easy bruising All/Imm: Denies: urticaria PFSH ED PFSH: Medical History Autistic disorder Disruptive mood dysregulation disorder Major depressive disorder, recurrent, moderate Psychiatric care Surgical History H/O esophagogastroduodenoscopy (05/30/21) History of foot surgery right- 2020 Social History Smoking and tobacco status: never smoked Physical Exam Const: COMMON NORMALS: no acute distress, patient oriented x3 and healthy appearing HENMT: COMMON NORMALS: normocephalic and atraumatic HEAD & SCALP: normocephalic and atraumatic Eye: COMMON NORMALS: Equal, round and reactive pupils present and EOMs intact bilaterally PUPIL: Yes Equal, round and reactive pupils present Neck/C-Spine: COMMON NORMALS: full ROM and supple Chest: COMMONS NORMALS: normal inspection of the chest and normal palpation of entire chest wall Resp: COMMON NORMALS: normal respiratory effort, No retractions, No use of accessory muscles and clear to auscultation bilaterally AUSCULTATION: clear to auscultation bilaterally Cardio: COMMON NORMALS: regular rate, regular rhythm and No murmurs present (Cardio) RATE: regular rate RHYTHM: regular rhythm GI: COMMON NORMALS: Normal to inspection, nondistended, normoactive bowel sounds present, Soft to palpation, non-tender and no masses PALPATION: Yes Soft to palpation Extremity: COMMON NORMALS: normal to inspection and full ROM Neuro: COMMON NORMALS: patient oriented x3, moves all extremities and no focal motor deficits Psych: COMMON NORMALS: mental status grossly normal, Normal thought process present and cooperative THOUGHT PROCESS: Normal thought process present Skin: COMMON NORMALS: no rashes or lesions noted and no wounds GENERAL SKIN EXAM: no rashes or lesions noted Course Vital Signs: Vital signs: Vital Signs Temperature 98.0 F 11/22/21 03:58 Pulse Rate 88 11/22/21 03:58 Respiratory Rate 16 11/22/21 03:58 Blood Pressure 138/92 11/22/21 03:58 Pulse Oximetry 96 11/22/21 03:58 Oxygen Delivery Me thod 11/22/21 03:40 MDM - Abdominal Pain Medical Decision Making Patient is well-appearing here he has no suicidal ideations abdominal exam is benign he feels improved after I did dispense him his trazodone and ziprasidone. He is stable for discharge he is to follow-up with PCP and return if worsening. Discharge Plan Discharge Patient Disposition: Home Clinical Impression: Headache, Abdominal pain Condition: Stable Prescriptions: No Action acetaminophen [Tylenol Extra Strength] 500 mg tablet 500 mg PO TID PRN (Reason: pain) bupropion HCl [Wellbutrin XL] 150 mg tablet extended release 24 hr 150 mg PO DAILY@09 Qty: 30 1RF bupropion HCl [Wellbutrin XL] 300 mg tablet extended release 24 hr 300 mg PO DAILY@09 Qty: 30 1RF trazodone 100 mg tablet 100 mg PO BEDTIME@21 Qty: 30 1RF ziprasidone HCl [Geodon] 40 mg capsule 40 mg PO BEDTIME@21 Qty: 30 1RF quetiapine [Seroquel] 200 mg tablet 200 mg PO .HS Qty: 30 1RF fluoride (sodium) [SF 5000 Plus] 1.1 % Cream 1 applic DENTAL DAILY@21 ondansetron 4 mg tablet,disintegrating 4 mg PO Q6H PRN (Reason: nausea and vomiting) Qty: 14 0RF metoclopramide HCl [Reglan] 10 mg tablet 10 mg PO Q6H PRN (Reason: nausea and vomiting) Qty: 20 0RF Claritin 10 mg Tablet 10 mg PO DAILY PRN (Reason: Allergy Symptoms) Daily-Shabbir (with folic acid) 400 mcg tablet 1 tab PO DAILY@21 Prilosec 40 mg Capsule,Delayed Release(Dr/Ec) 40 mg PO BID@, Tums 500 500 mg calcium (1,250 mg) Tablet,Chewable 500 mg PO Q4H PRN (Reason: Stomach Upset) Clear Eyes Triple Action See Rx Instructions .ROUTE .COMPLEX Rx Instructions: as directed on package as needed Discharge Orders: Discharge ED (Routine); Ordered 11/22/21 Ordered By: Aga Berry Referrals: Kenneth Bravo DO [Primary Care Provider] - Discharge Diet: Advance as tolerated Discharge Activity: Resume usual activity Patient Instructions: Acute Headache (ED), Abdominal Pain (ED) Coding Level of Care Code ED Clarifying Plant Operator for Chg Fwd Exam Comprehensive
[2021-11-22] MEDS: HYDROcodone-acetaminophen 5-325 mg Tablet 1 TAB PO (03:45)
[2021-11-22] MEDS: trazodone 100 mg Tablet PO (03:46)
[2021-11-22] MEDS: ziprasidone hcl 40 mg Capsule PO (03:46)
[2021-11-22] MEDS: lidocaine 2% viscous 15 ML, aluminum-mag hydrox-simethicon 30 ML, sucralfate oral liq 1 GM PO (03:48)
[2021-11-22 03:58] VITALS: BP 138/92; PULSE 88; RESP 16; TEMP 36.7; O2SAT 96
== END 2021-11-22 04:01 | disposition home or self-care (01) ==
PROVIDERS: Emergency Provider Emergency Medicine; PCP Internal Medicine
DX: R51.9 Headache, unspecified (principal); R10.9 Unspecified abdominal pain; F84.0 Autistic disorder
CPT/HCPCS: 99284

== ENCOUNTER 2021-12-21 05:25 | Emergency (ER) | payer MEDICAID, SELFPAY ==
[2021-12-21 05:26] VITALS: BP 145/98; PULSE 92; RESP 18; TEMP 37; O2SAT 95; BMI 29.0
--- NOTE | 2021-12-21 05:52 | ED.C_ITS ---
HPI - Psych General: Chief Complaint: Psychiatric Symptoms Stated Complaint: MHE Time Seen by Provider: 12/21/21 05:27 Source: patient History of Present Illness: 26-year-old male with a history of autism and depression. He lives in a long-term environment. He states that staff did not fill his medication on Wednesday, and that he has been out for 48 hours or so. He also has not slept in that amount of time as well. He is mildly agitated because of this. He is not homicidal or suicidal. He has had no significant outbursts of anger. He does note that he has some burning in his stomach, with a history of gastritis and gastroesophageal reflux. He vomited 1 time this morning. MD complaint: feels depressed and other Onset (ago): day(s) Duration: constant History of same: Yes Relieving factors: other Exacerbating factors: other Associated symptoms: Reports depression; Deny auditory hallucinations, visual hallucinations, delusions or suicidal ideation Review of Systems Const: Denies: fever(s) Card: Denies: chest pain Resp: Denies: dyspnea GI: Reports: abdominal pain, nausea and vomiting; Denies: diarrhea Psych: Reports: depression; Denies: visual hallucinations, auditory hallucinations or suicidal ideation PFS ED PFSH: Medical History Autistic disorder Disruptive mood dysregulation disorder Major depressive disorder, recurrent, moderate Psychiatric care Surgical History H/O esophagogastroduodenoscopy (05/30/21) History of foot surgery right- 2020 Social History Smoking and tobacco status: never smoked Physical Exam Const: COMMON NORMALS: no acute distress GENERAL APPEARANCE: cooperative; not ill appearing HENMT: COMMON NORMALS: normocephalic, atraumatic and Normal external nose present HEAD & SCALP: normocephalic and atraumatic NOSE: Normal external nose present and Normal nares present Eye: COMMON NORMALS: Equal, round and reactive pupils present and EOMs intact bilaterally PUPIL: Yes Equal, round and reactive pupils present Neck/C-Spine: GENERAL: Yes trachea midline Chest: CHEST: Yes Symmetrical chest wall rise Resp: COMMON NORMALS: normal respiratory effort, No use of accessory muscles and clear to auscultation bilaterally AUSCULTATION: clear to auscultation bilaterally Cardio: COMMON NORMALS: regular rate and regular rhythm RATE: regular rate RHYTHM: regular rhythm GI: COMMON NORMALS: Normal to inspection, nondistended, normoactive bowel sounds present and Soft to palpation PALPATION: Yes Soft to palpation Extremity: COMMON NORMALS: no pedal edema Neuro: FCO COMA SCALE: document GCS findings Fco coma scale eye opening: Spontaneous [place] coma scale verbal response: Orientated Fco coma scale motor response: Obey commands [place] coma scale total score: 15 Psych: COMMON NORMALS: cooperative THOUGHT CONTENT: No delusions Skin: COMMON NORMALS: no rashes or lesions noted GENERAL SKIN EXAM: no rashes or lesions noted Course Vital Signs: Vital signs: Vital Signs Temperature 98.6 F 12/21/21 05:26 Pulse Rate 92 12/21/21 05:26 Respiratory Rate 18 12/21/21 05:26 Blood Pressure 145/98 12/21/21 05:26 Pulse Oximetry 95 12/21/21 05:26 MDM - Psych Medical Decision Making No suicidal or homicidal ideation. Medication will simply be refilled. He will be dispensed an Ambien to help him sleep when he gets back home. As for the gastritis, patient requests a GI cocktail. Discharge Plan Discharge Patient Disposition: Home Clinical Impression: Autistic disorder, Major depressive disorder, recurrent, moderate Condition: Stable Prescriptions: Continued Seroquel 200 mg tablet 200 mg PO .HS Qty: 30 1RF omeprazole 40 mg Capsule,Delayed Release(Dr/Ec) 40 mg PO BID@,21 Qty: 60 0RF Geodon 40 mg capsule 40 mg PO BEDTIME@21 Qty: 30 1RF bupropion HCl 300 mg tablet extended release 24 hr 300 mg PO DAILY@09 Qty: 30 1RF bupropion HCl 150 mg tablet extended release 24 hr 150 mg PO DAILY@09 Qty: 30 1RF No Action acetaminophen [Tylenol Extra Strength] 500 mg tablet 500 mg PO TID PRN (Reason: pain) trazodone 100 mg tablet 100 mg PO BEDTIME@21 Qty: 30 1RF fluoride (sodium) [SF 5000 Plus] 1.1 % Cream 1 applic DENTAL DAILY@21 ondansetron 4 mg tablet,disintegrating 4 mg PO Q6H PRN (Reason: nausea and vomiting) Qty: 14 0RF metoclopramide HCl [Reglan] 10 mg tablet 10 mg PO Q6H PRN (Reason: nausea and vomiting) Qty: 20 0RF Claritin 10 mg Tablet 10 mg PO DAILY PRN (Reason: Allergy Symptoms) Daily-Shabbir (with folic acid) 400 mcg tablet 1 tab PO DAILY@21 Tums 500 500 mg calcium (1,250 mg) Tablet,Chewable 500 mg PO Q4H PRN (Reason: Stomach Upset) Clear Eyes Triple Action See Rx Instructions .ROUTE .COMPLEX Rx Instructions: as directed on package as needed Discharge Orders: Discharge ED (Routine); Ordered 12/21/21 Ordered By: Milo Locke Referrals: Kenneth Bravo, [Primary Care Provider] - 4-7 days Patient Instructions: Gastritis (ED), Depression (ED), Insomnia (ED) Activity Restrictions/Additional Instructions: Return for any problems. Make sure you contact your doctor to finish your medications. Take the pill you were dispensed when you get home to help you sleep today. Coding Level of Care Code ED Cipher Expert for Alva Fwd Exam Comprehensive
[2021-12-21] MEDS: quetiapine 100 mg Tablet 200 MG PO (06:04)
[2021-12-21] MEDS: ziprasidone hcl 40 mg Capsule PO (06:04)
[2021-12-21] MEDS: lidocaine 2% viscous 15 ML, aluminum-mag hydrox-simethicon 30 ML, sucralfate oral liq 1 GM PO (06:05)
[2021-12-21] MEDS: buPROPion XL (24 HR) 150 mg Tablet 450 MG PO (06:11)
[2021-12-21 06:14] VITALS: RESP 16
== END 2021-12-21 06:20 | disposition home or self-care (01) ==
PROVIDERS: Emergency Provider Emergency Medicine; PCP Internal Medicine
DX: F33.1 Major depressive disorder, recurrent, moderate (principal); F84.0 Autistic disorder
CPT/HCPCS: 99284

== ENCOUNTER 2021-12-22 07:45 | Emergency (ER) | payer MEDICAID, SELFPAY ==
[2021-12-22 07:47] VITALS: BP 134/94; PULSE 97; RESP 15; O2SAT 93; BMI 29.0
[2021-12-22] MEDS: metoclopramide 10 mg Tablet PO (08:09)
[2021-12-22] MEDS: ziprasidone hcl 40 mg Capsule PO (08:09)
--- NOTE | 2021-12-22 08:09 | ED.C_ITS ---
HPI - Psych General: Chief Complaint: Psychiatric Symptoms Stated Complaint: SUICIDAL THOUGHTS Time Seen by Provider: 12/22/21 07:55 Source: patient, EMS and police Mode of arrival: EMS History of Present Illness: 26-year-old male currently attends to the ER. He is history of autism and behavioral disturbance. He became upset this morning because he states has not been sleeping well he does not think he is got all of the correct medications for the last few days. He reportedly tried to strangle himself with a USB cord. When I came to the room he brought 2 books with him to read while he was here he is also playing on his smart phone. He is what he describes as stressed out. He has been to the ER with similar behavioral outburst multiple times he has seen psychiatry many times he has not advance lethality so he is not admitted for these episodes. MD complaint: suicidal ideation Onset (ago): minute(s) Duration: constant History of same: Yes Relieving factors: medication Exacerbating factors: other (Disruption in routine) Associated psychiatric symptoms: suicidal ideation If self harm: admits thoughts of self harm Review of Systems Const: Denies: fever(s), chills, body aches, change in appetite, fatigue or malaise ENMT: Denies: throat pain, ear or mastoid pain, nasal discharge or nasal congestion Card: Denies: chest pain, edema, dyspnea on exertion or orthopnea Resp: Denies: dyspnea, productive cough or non-productive cough GI: Reports: vomiting; Denies: abdominal pain, nausea, hematemesis, coffee ground emesis, diarrhea, constipation, bloating, hematochezia or melena : Denies: flank pain, dysuria, urinary frequency or urinary urgency Skin/Breast: Denies: rash or pruritus PFSH ED PFSH: Medical History Autistic disorder Disruptive mood dysregulation disorder Major depressive disorder, recurrent, moderate Psychiatric care Surgical History H/O esophagogastroduodenoscopy (05/30/21) History of foot surgery right- 2020 Social History Smoking and tobacco status: never smoked Physical Exam Const: COMMON NORMALS: no acute distress GENERAL APPEARANCE: cooperative and comfortable ORIENTATION/CONSCIOUSNESS: Yes awake HENMT: COMMON NORMALS: normocephalic, atraumatic and hearing grossly normal bilaterally HEAD & SCALP: normocephalic and atraumatic Resp: COMMON NORMALS: normal respiratory effort, No retractions, No use of accessory muscles and clear to auscultation bilaterally AUSCULTATION: clear to auscultation bilaterally Cardio: COMMON NORMALS: regular rate, regular rhythm and No murmurs present (Cardio) RATE: regular rate RHYTHM: regular rhythm GI: COMMON NORMALS: Soft to palpation and No hepatosplenomegaly present AUSCULTATION: Yes normoactive bowel sounds PALPATION: Yes Soft to palpation, No Tenderness to palpation present (GI), No Guarding due to palpation present (GI) and Yes No hepatosplenomegaly present Extremity: COMMON NORMALS: normal to inspection, capillary refill normal, no clubbing, cyanosis or edema, no calf tenderness and no pedal edema Skin: COMMON NORMALS: no rashes or lesions noted GENERAL SKIN EXAM: no rashes or lesions noted Course Vital Signs: Vital signs: Vital Signs Pulse Rate 97 12/22/21 07:47 Respiratory Rate 15 12/22/21 07:47 Blood Pressure 134/94 12/22/21 07:47 Pulse Oximetry 93 12/22/21 07:47 Oxygen Delivery Me thod 12/22/21 07:47 MDM - Psych Medical Decision Making Patient well behaved. No behavior outbursts. He reports episodes of nausea and vomitting prior to arrival. But was able to eat in the department without difficulty. I did give him his medicines that he says he has been missing particularly as bupropion and his Seroquel and Geodon. Discussed with Dr. Anuradha schulte who is on-call for psychiatry patient has been here multiple times in the past. He has not advance lethality Dr. Howell does not feel that he would benefit from admission today the usual type of presentation is what he had today where he gets upset he acts out and then behaves well after this. Patient was anticipating being admitted and was not happy about being discharged but did leave nonetheless. Recommend that he follow-up closely with his outpatient psychiatry team. Medical Records I reviewed the patient's medical records. Lab Data I reviewed the patient's lab results. Discharge Plan Discharge Patient Disposition: Home Clinical Impression: Disruptive mood dysregulation disorder, Autistic disorder Condition: Stable Prescriptions: No Action acetaminophen [Tylenol Extra Strength] 500 mg tablet 500 mg PO TID PRN (Reason: pain) trazodone 100 mg tablet 100 mg PO BEDTIME@21 Qty: 30 1RF quetiapine [Seroquel] 200 mg tablet 200 mg PO .HS Qty: 30 1RF omeprazole 40 mg Capsule,Delayed Release(Dr/Ec) 40 mg PO BID@,21 Qty: 60 0RF ziprasidone HCl [Geodon] 40 mg capsule 40 mg PO BEDTIME@21 Qty: 30 1RF bupropion HCl 300 mg tablet extended release 24 hr 300 mg PO DAILY@09 Qty: 30 1RF bupropion HCl 150 mg tablet extended release 24 hr 150 mg PO DAILY@09 Qty: 30 1RF Clear Eyes Complete 0.025-0.2-0.5 % Drops 1 drp OPHTHALMIC (EYE) QID PRN (Reason: Allergy Symptoms) metoclopramide HCl [Reglan] 10 mg tablet 10 mg PO Q6H PRN (Reason: nausea and vomiting) Qty: 20 0RF loratadine [Claritin] 10 mg Tablet 10 mg PO DAILY PRN (Reason: Allergy Symptoms) multivitamin with folic acid [Daily-Shabbir (with folic acid)] 400 mcg tablet 1 tab PO DAILY@21 calcium carbonate [Tums 500] 500 mg calcium (1,250 mg) Tablet,Chewable 500 mg PO Q4H PRN (Reason: Stomach Upset) Discharge Orders: Discharge ED (Routine); Ordered 12/22/21 Ordered By: Gamal Parekh Referrals: Kenneth Bravo DO [Primary Care Provider] - Patient Instructions: Opioid Safety, Pain Management Activity Restrictions/Additional Instructions: Continue current medications. Follow-up with his outpatient psychiatry team. Coding Level of Care Code ED Fitness Manager for Chg Fwd Exam Detailed
[2021-12-22] MEDS: buPROPion XL (24 HR) 150 mg Tablet 450 MG PO (08:10)
== END 2021-12-22 09:45 | disposition home or self-care (01) ==
PROVIDERS: Emergency Provider Family Medicine; PCP Internal Medicine
DX: F34.81 Disruptive mood dysregulation disorder (principal); F84.0 Autistic disorder
CPT/HCPCS: 99283; J8597

== ENCOUNTER 2022-02-04 22:06 | Emergency (ER) | payer MEDICAID, SELFPAY ==
[2022-02-04 22:22] VITALS: BP 127/74; PULSE 91; RESP 16; TEMP 36.5; O2SAT 93; BMI 29.0
--- NOTE | 2022-02-04 22:31 | W.ED.PSYCHS ---
HPI - Psych General: Chief Complaint: Psychiatric Symptoms Stated Complaint: SI Time Seen by Provider: 02/04/22 22:07 Source: patient and EMS Mode of arrival: EMS Limitations: no limitations History of Present Illness: 26-year-old male who is very well-known to the ER he has a history of autism along with disruptive disorder he states he been having chronic groin pain for over a year that causes him anger sometimes get angry with staff tonight made statements he does not want to live with his pain or he states he is currently not suicidal he has no plan he denies any worsening improving factors. Associated symptoms: Reports depression Review of Systems Const: Denies: fever(s), chills, body aches or change in appetite Eyes: Denies: blurry vision or eye discomfort ENMT: Denies: throat pain or dental pain Card: Denies: chest pain Resp: Denies: dyspnea GI: Denies: abdominal pain, nausea, vomiting or diarrhea : Denies: dysuria Musc: Denies: neck pain or back pain Skin/Breast: Denies: rash Neuro: Denies: headache(s) Psych: Reports: depression Mingo/Lymph: Denies: easy bruising All/Imm: Denies: urticaria PFSH ED PFSH: Medical History Autistic disorder Disruptive mood dysregulation disorder Major depressive disorder, recurrent, moderate Psychiatric care Surgical History H/O esophagogastroduodenoscopy (05/30/21) History of foot surgery right- 2020 Social History Smoking and tobacco status: never smoked Physical Exam Const: COMMON NORMALS: no acute distress, patient oriented x3 and healthy appearing HENMT: COMMON NORMALS: normocephalic and atraumatic HEAD & SCALP: normocephalic and atraumatic Eye: COMMON NORMALS: Equal, round and reactive pupils present and EOMs intact bilaterally PUPIL: Yes Equal, round and reactive pupils present Neck/C-Spine: COMMON NORMALS: full ROM and supple Chest: COMMONS NORMALS: normal inspection of the chest and normal palpation of entire chest wall Resp: COMMON NORMALS: normal respiratory effort, No retractions, No use of accessory muscles and clear to auscultation bilaterally AUSCULTATION: clear to auscultation bilaterally Cardio: COMMON NORMALS: regular rate, regular rhythm and No murmurs present (Cardio) RATE: regular rate RHYTHM: regular rhythm GI: COMMON NORMALS: Normal to inspection, nondistended, normoactive bowel sounds present, Soft to palpation, non-tender and no masses PALPATION: Yes Soft to palpation Extremity: COMMON NORMALS: normal to inspection and full ROM Neuro: COMMON NORMALS: patient oriented x3, moves all extremities and no focal motor deficits Psych: COMMON NORMALS: mental status grossly normal, Normal thought process present and cooperative THOUGHT PROCESS: Normal thought process present Skin: COMMON NORMALS: no rashes or lesions noted and no wounds GENERAL SKIN EXAM: no rashes or lesions noted Course Vital Signs: Vital signs: Vital Signs Temperature 97.7 F 02/04/22 22:22 Pulse Rate 91 02/04/22 22:22 Respiratory Rate 16 02/04/22 22:22 Blood Pressure 127/74 02/04/22 22:22 Pulse Oximetry 93 02/04/22 22:22 Oxygen Delivery Me thod 02/04/22 22:22 MDM - Psych Medical Decision Making Patient presents with depression he is not suicidal here I did have patient evaluated by psychiatrist Dr. Howell who agrees that patient is stable for discharge he is to follow-up with [facility] [place] return if worsening he understands agrees to plan. Discharge Plan Discharge Patient Disposition: Home Clinical Impression: Depression Condition: Stable Prescriptions: No Action acetaminophen [Tylenol Extra Strength] 500 mg tablet 500 mg PO TID PRN (Reason: pain) trazodone 100 mg tablet 100 mg PO BEDTIME@21 Qty: 30 1RF quetiapine [Seroquel] 200 mg tablet 200 mg PO .HS Qty: 30 1RF omeprazole 40 mg Capsule,Delayed Release(Dr/Ec) 40 mg PO BID@ Qty: 60 0RF ziprasidone HCl [Geodon] 40 mg capsule 40 mg PO BEDTIME@21 Qty: 30 1RF bupropion HCl 300 mg tablet extended release 24 hr 300 mg PO DAILY@09 Qty: 30 1RF bupropion HCl 150 mg tablet extended release 24 hr 150 mg PO DAILY@09 Qty: 30 1RF Clear Eyes Complete 0.025-0.2-0.5 % Drops 1 drp OPHTHALMIC (EYE) QID PRN (Reason: Allergy Symptoms) metoclopramide HCl [Reglan] 10 mg tablet 10 mg PO Q6H PRN (Reason: nausea and vomiting) Qty: 20 0RF loratadine [Claritin] 10 mg Tablet 10 mg PO DAILY PRN (Reason: Allergy Symptoms) multivitamin with folic acid [Daily-Shabbir (with folic acid)] 400 mcg tablet 1 tab PO DAILY@21 calcium carbonate [Tums 500] 500 mg calcium (1,250 mg) Tablet,Chewable 500 mg PO Q4H PRN (Reason: Stomach Upset) Discharge Orders: Discharge ED (Routine); Ordered 02/04/22 Ordered By: Aga Berry Referrals: Kenneth Bravo DO [Primary Care Provider] - Discharge Diet: Advance as tolerated Discharge Activity: Resume usual activity Patient Instructions: Depression (ED) Coding Level of Care Code ED Expansion Joint Builder for Chg Fwd Exam Comprehensive
== END 2022-02-04 23:01 | disposition home or self-care (01) ==
PROVIDERS: Emergency Provider Emergency Medicine; PCP Internal Medicine
DX: F32.A Depression, unspecified (principal); F84.0 Autistic disorder
CPT/HCPCS: 99283

== ENCOUNTER 2022-02-09 21:44 | Emergency (ER) | payer MEDICAID, SELFPAY ==
[2022-02-09 21:45] VITALS: BP 115/82; TEMP 36.8; BMI 29.5
--- NOTE | 2022-02-09 21:48 | ED.C_ITS ---
HPI - Psych General: Stated Complaint: ANGER OUTBURSTS Time Seen by Provider: 02/09/22 21:46 Source: patient and EMS Mode of arrival: EMS Limitations: no limitations History of Present Illness: 26-year-old male who is very well-known to the ER had an anger episode tonight at his correction after not getting what he wanted to eat he is he was agitated seen he has been cooperative here he denies suicidality or homicidality he has no other complaints at this time. Associated symptoms: Deny depression Review of Systems Const: Denies: fever(s), chills, body aches or change in appetite Eyes: Denies: blurry vision or eye discomfort ENMT: Denies: throat pain or dental pain Card: Denies: chest pain Resp: Denies: dyspnea GI: Denies: abdominal pain, nausea, vomiting or diarrhea : Denies: dysuria Musc: Denies: neck pain or back pain Skin/Breast: Denies: rash Neuro: Denies: headache(s) Psych: Denies: depression Mingo/Lymph: Denies: easy bruising All/Imm: Denies: urticaria PFSH ED PFSH: Medical History Autistic disorder Disruptive mood dysregulation disorder Major depressive disorder, recurrent, moderate Psychiatric care Surgical History H/O esophagogastroduodenoscopy (05/30/21) History of foot surgery right- 2020 Social History Smoking and tobacco status: never smoked Physical Exam Const: COMMON NORMALS: no acute distress, patient oriented x3 and healthy appearing HENMT: COMMON NORMALS: normocephalic and atraumatic HEAD & SCALP: normocephalic and atraumatic Eye: COMMON NORMALS: Equal, round and reactive pupils present and EOMs intact bilaterally PUPIL: Yes Equal, round and reactive pupils present Neck/C-Spine: COMMON NORMALS: full ROM and supple Chest: COMMONS NORMALS: normal inspection of the chest and normal palpation of entire chest wall Resp: COMMON NORMALS: normal respiratory effort, No retractions, No use of accessory muscles and clear to auscultation bilaterally AUSCULTATION: clear to auscultation bilaterally Cardio: COMMON NORMALS: regular rate, regular rhythm and No murmurs present (Cardio) RATE: regular rate RHYTHM: regular rhythm GI: COMMON NORMALS: Normal to inspection, nondistended, normoactive bowel sounds present, Soft to palpation, non-tender and no masses PALPATION: Yes Soft to palpation Extremity: COMMON NORMALS: normal to inspection and full ROM Neuro: COMMON NORMALS: patient oriented x3, moves all extremities and no focal motor deficits Psych: COMMON NORMALS: mental status grossly normal, Normal thought process present and cooperative THOUGHT PROCESS: Normal thought process present Skin: COMMON NORMALS: no rashes or lesions noted and no wounds GENERAL SKIN EXAM: no rashes or lesions noted MDM - Psych Medical Decision Making Patient presents here with an agitated episode he is well-appearing here he is denying suicidality or homicidality he is stable for discharge he is to follow- up his PCP and return if worsening I did discuss case with Dr. Howell who agrees patient stable for discharge at this time Discharge Plan Discharge Patient Disposition: Home Clinical Impression: Autistic disorder, Agitation Condition: Stable Prescriptions: No Action acetaminophen [Tylenol Extra Strength] 500 mg tablet 500 mg PO TID PRN (Reason: pain) trazodone 100 mg tablet 100 mg PO BEDTIME@21 Qty: 30 1RF quetiapine [Seroquel] 200 mg tablet 200 mg PO .HS Qty: 30 1RF omeprazole 40 mg Capsule,Delayed Release(Dr/Ec) 40 mg PO BID@09,21 Qty: 60 0RF ziprasidone HCl [Geodon] 40 mg capsule 40 mg PO BEDTIME@21 Qty: 30 1RF bupropion HCl 300 mg tablet extended release 24 hr 300 mg PO DAILY@09 Qty: 30 1RF bupropion HCl 150 mg tablet extended release 24 hr 150 mg PO DAILY@09 Qty: 30 1RF Clear Eyes Complete 0.025-0.2-0.5 % Drops 1 drp OPHTHALMIC (EYE) QID PRN (Reason: Allergy Symptoms) metoclopramide HCl [Reglan] 10 mg tablet 10 mg PO Q6H PRN (Reason: nausea and vomiting) Qty: 20 0RF loratadine [Claritin] 10 mg Tablet 10 mg PO DAILY PRN (Reason: Allergy Symptoms) multivitamin with folic acid [Daily-Shabbir (with folic acid)] 400 mcg tablet 1 tab PO DAILY@21 calcium carbonate [Tums 500] 500 mg calcium (1,250 mg) Tablet,Chewable 500 mg PO Q4H PRN (Reason: Stomach Upset) Discharge Orders: Discharge ED (Routine); Ordered 02/09/22 Ordered By: Aga Berry Referrals: Kenneth Bravo DO [Primary Care Provider] - Discharge Diet: Advance as tolerated Discharge Activity: Resume usual activity Patient Instructions: Depression (ED) Coding Level of Care Code ED Division Order Technician for Alva Che
[2022-02-09] MEDS: ondansetron 4 MG Tablet PO (21:51)
[2022-02-09] MEDS: lidocaine 2% viscous 15 ML, aluminum-mag hydrox-simethicon 30 ML, sucralfate oral liq 1 GM PO (22:24)
[2022-02-09 22:28] VITALS: BP 128/74; PULSE 85; RESP 16; O2SAT 98
== END 2022-02-09 22:30 | disposition home or self-care (01) ==
PROVIDERS: Emergency Provider Emergency Medicine; PCP Internal Medicine
DX: R45.1 Restlessness and agitation (principal); F84.0 Autistic disorder
CPT/HCPCS: 99283; Q0162

== ENCOUNTER 2022-02-22 22:00 | Emergency (ER) | payer MEDICAID, SELFPAY ==
[2022-02-22 22:04] VITALS: BMI 26.6
[2022-02-22 22:09] VITALS: BP 127/82; PULSE 88; RESP 16; TEMP 36.9; O2SAT 96
--- NOTE | 2022-02-22 22:20 | PC.NURSE ---
Dr. Howell contacted via video message for consult with pt.
--- NOTE | 2022-02-22 22:28 | W.ED.PSYCHS ---
HPI - Psych General: Chief Complaint: Psychiatric Symptoms Stated Complaint: SI Time Seen by Provider: 02/22/22 22:01 Source: patient and other (Web Site Designer) Mode of arrival: EMS Limitations: no limitations History of Present Illness: See nursing assessment. Patient reportedly complained of suicidal ideations tonight. Patient scraped left anterior neck with a thumbtack. He also grabbed a long knife and threatened to cut his left wrist. However, he did not cause any injury. He also reported to planing machine operator that he was thinking about drinking bleach. Patient denies drinking bleach. He has no smell of bleach on him or his breath. Patient denies any other injuries. Patient appears in no distress. Patient was brought in by ambulance due to his complaints. Review of Systems Const: Denies: fever(s) or chills Eyes: Denies: change in vision ENMT: Denies: throat pain Card: Denies: chest pain or palpitations Resp: Denies: dyspnea or wheezing GI: Denies: abdominal pain, nausea or vomiting : Denies: flank pain Musc: Denies: neck pain or back pain Skin/Breast: Denies: rash or pruritus Neuro: Denies: headache(s) or numbness in extremities Psych: Denies: anxiety Mingo/Lymph: Denies: enlarged lymph nodes PFSH ED PFSH: Medical History Autistic disorder Disruptive mood dysregulation disorder Major depressive disorder, recurrent, moderate Psychiatric care Surgical History H/O esophagogastroduodenoscopy (05/30/21) History of foot surgery right- 2020 Social History Smoking and tobacco status: never smoked Physical Exam Const: COMMON NORMALS: no acute distress, patient oriented x3, no limitations and well nourished GENERAL APPEARANCE: cooperative HENMT: COMMON NORMALS: normocephalic and atraumatic HEAD & SCALP: normocephalic and atraumatic FACE & SINUS: normal facial exam Eye: COMMON NORMALS: EOMs intact bilaterally Neck/C-Spine: COMMON NORMALS: full ROM, no lymphadenopathy, supple and no meningeal signs GENERAL: Yes normal visual inspection Lymph: LYMPHATIC: no lymphadenopathy noted Chest: COMMONS NORMALS: normal inspection of the chest and normal palpation of entire chest wall CHEST: No Ecchymosis present and No rash Resp: COMMON NORMALS: normal respiratory effort, No retractions and clear to auscultation bilaterally EFFORT & INSPECTION: No respiratory distress AUSCULTATION: clear to auscultation bilaterally Cardio: COMMON NORMALS: regular rate, regular rhythm and Peripheral pulses 2+ throughout JUGULAR VENOUS DISTENTION: no JVD RATE: regular rate RHYTHM: regular rhythm PERIPHERAL PULSES: Peripheral pulses 2+ throughout GI: COMMON NORMALS: Normal to inspection, nondistended, normoactive bowel sounds present and non-tender : COMMON NORMALS: Yes no CVA tenderness BLADDER/KIDNEY EXAM: Yes no CVA tenderness Back/Pelvis: COMMON NORMALS: no CVA tenderness Extremity: COMMON NORMALS: normal to inspection, full ROM and capillary refill normal Neuro: COMMON NORMALS: patient oriented x3, CN's II-XII intact bilaterally, no focal motor deficits and no sensory deficits noted MENINGEAL SIGNS: Yes no meningeal signs Psych: COMMON NORMALS: mental status grossly normal and Normal thought process present THOUGHT PROCESS: Normal thought process present OTHER: Patient has autism. Patient states he has had suicidal thoughts. Patient appears in no distress. Does not look depressed. He is talkative. Skin: COMMON NORMALS: no rashes or lesions noted and no wounds GENERAL SKIN EXAM: no rashes or lesions noted OTHER: No abrasions or lacerations found. Course Vital Signs: Vital signs: Vital Signs Temperature 98.4 F 02/22/22 22:09 Pulse Rate 88 02/22/22 22:09 Respiratory Rate 16 02/22/22 22:09 Blood Pressure 127/82 02/22/22 22:09 Pulse Oximetry 96 02/22/22 22:09 Oxygen Delivery Me thod 02/22/22 22:09 MDM - Psych Medical Decision Making Depression. Suicidal thoughts. Autism. 2224: Discussed case with Dr. Howell psychiatry. He is very familiar with the patient. He will FaceTime the patient emergency room and make a plan for care. Dr. Howell states usually he can be treated as an outpatient. No evidence of injury. No bleach ingestion. 2299: Case discussed with Dr. Howell psychiatry. He states patient does not require admission as inpatient. He states his issues can be dealt with as an outpatient. Therefore, will not proceed with screening lab work. Patient is here frequently. I offered the patient Ativan as a pill or injection to help him calm down and he declined medications. He states he has plenty of medications help him sleep at home. Therefore, patient will be discharged to caretakers care and patient to follow-up as an outpatient with behavioral health. Discharge Plan Discharge Patient Disposition: Home Clinical Impression: Autistic disorder, Suicidal ideation Condition: Stable Prescriptions: No Action acetaminophen [Tylenol Extra Strength] 500 mg tablet 500 mg PO TID PRN (Reason: pain) trazodone 100 mg tablet 100 mg PO BEDTIME@21 Qty: 30 1RF quetiapine [Seroquel] 200 mg tablet 200 mg PO .HS Qty: 30 1RF omeprazole 40 mg Capsule,Delayed Release(Dr/Ec) 40 mg PO BID@,21 Qty: 60 0RF ziprasidone HCl [Geodon] 40 mg capsule 40 mg PO BEDTIME@21 Qty: 30 1RF bupropion HCl 300 mg tablet extended release 24 hr 300 mg PO DAILY@09 Qty: 30 1RF bupropion HCl 150 mg tablet extended release 24 hr 150 mg PO DAILY@09 Qty: 30 1RF Clear Eyes Complete 0.025-0.2-0.5 % Drops 1 drp OPHTHALMIC (EYE) QID PRN (Reason: Allergy Symptoms) metoclopramide HCl [Reglan] 10 mg tablet 10 mg PO Q6H PRN (Reason: nausea and vomiting) Qty: 20 0RF loratadine [Claritin] 10 mg Tablet 10 mg PO DAILY PRN (Reason: Allergy Symptoms) multivitamin with folic acid [Daily-Shabbir (with folic acid)] 400 mcg tablet 1 tab PO DAILY@21 calcium carbonate [Tums 500] 500 mg calcium (1,250 mg) Tablet,Chewable 500 mg PO Q4H PRN (Reason: Stomach Upset) Discharge Orders: Discharge ED (Routine); Ordered 02/22/22 Ordered By: Addison Varghese Referrals: Kenneth Bravo DO [Primary Care Provider] - 02/23/22 Discharge Activity: Resume usual activity Patient Instructions: Depression (ED), Anxiety (ED) Activity Restrictions/Additional Instructions: Dr. Howell psychiatrist recommended outpatient evaluation at your behavioral health clinic. Continue home medications as prescribed. Coding Level of Care Code ED Net Web Application Developer for Chg Fwd Exam Comprehensive
--- NOTE | 2022-02-22 22:55 | PC.NURSE ---
Sitter to this RN. States pt hit bed and yelled Fuck . Requested security presence. Security notified. Pt never attempted to get off bed. Is verbally de-escalated. Caregiver at bedside is upset that pt is being dc'd. Refusing to take pt home. Requests to speak to Dr. Howell.
--- NOTE | 2022-02-22 23:34 | PC.NURSE ---
Dr. Howell spoke with caregiver. Is discharging pt.
[2022-02-22] MEDS: LORazepam 2 mg Tablet PO (23:55)
--- NOTE | 2022-02-23 00:05 | PC.NURSE ---
chief investment officer at bedside at caregiver request. Spoke with pt and caregiver. Decision made for caregiver to escort pt home. Pt calm and cooperative. Escorted to front lobby without issue.
== END 2022-02-23 00:05 | disposition home or self-care (01) ==
PROVIDERS: Emergency Provider Family Medicine; PCP Internal Medicine
DX: R45.851 Suicidal ideations (principal); F84.0 Autistic disorder
CPT/HCPCS: 99285

== ENCOUNTER 2022-03-22 13:36 | Inpatient (IN) | payer MEDICAID, SELFPAY ==
[2022-03-22 13:39] VITALS: BP 117/77; PULSE 65; RESP 17; TEMP 36.8; O2SAT 99
--- NOTE | 2022-03-22 14:07 | W.ED.PSYCHS ---
HPI - Psych General: Chief Complaint: Psychiatric Symptoms Stated Complaint: PSYCH EVAL Time Seen by Provider: 03/22/22 13:38 History of Present Illness: Patient is a 27-year-old male with a history of Asperger's that presents to the ER for evaluation of increased aggression. He states he has become increasingly aggressive towards his user experience team lead for his mental health care provider. He lives in an apartment but has 24-hour care. patient denies any current suicidal ideation. He states he does not want to harm anyone but is afraid that he is going to lose control and harm his user experience team lead. Review of Systems Const: Denies: fever(s) or malaise Card: Denies: chest pain or palpitations Resp: Denies: dyspnea GI: Denies: abdominal pain, nausea or vomiting Skin/Breast: Denies: rash Neuro: Denies: headache(s) PFSH ED PFSH: Medical History Autistic disorder Disruptive mood dysregulation disorder Major depressive disorder, recurrent, moderate Psychiatric care Surgical History H/O esophagogastroduodenoscopy (05/30/21) History of foot surgery right- 2020 Social History Smoking and tobacco status: never smoked Physical Exam Const: COMMON NORMALS: alert GENERAL APPEARANCE: cooperative; not in distress HENMT: COMMON NORMALS: normocephalic and atraumatic HEAD & SCALP: normocephalic and atraumatic Eye: COMMON NORMALS: EOMs intact bilaterally Resp: COMMON NORMALS: normal respiratory effort Neuro: COMMON NORMALS: no focal motor deficits SENSORIUM/ORIENTATION: Yes alert Skin: COMMON NORMALS: no rashes or lesions noted GENERAL SKIN EXAM: no rashes or lesions noted Course Vital Signs: Vital signs: Vital Signs Temperature 98.1 F 03/22/22 14:35 Pulse Rate 100 03/22/22 14:35 Respiratory Rate 16 03/22/22 14:35 Blood Pressure 138/91 03/22/22 14:35 Pulse Oximetry 98 03/22/22 14:35 Oxygen Delivery Me thod 03/22/22 14:35 MDM - Psych Medical Decision Making Patient is a 27-year-old male with a history of Asburgers's who presents due to concern for increased aggression and potentially harming his user experience team lead for his mental health care team. He denies any current suicidal ideation or homicidal ideation. He has had some mild self-harm behavior with superficial abrasions to the left forearm with a piece of glass. He is agreeable to inpatient care if he can get some help. I spoke with the mental health provider at this facility who will admit for mental health care treatment. Differential Diagnosis Likely acute psychosis, suicidal ideation, bipolar disorder, depression and acute anxiety Lab Data 03/22/22 14:13 03/22/22 14:13 Discharge Plan Discharge Patient Disposition: Admitted As Inpatient Admit Provider: Raymundo Cervantes Clinical Impression: Mood disorder, Aggression Condition: Stable Coding Level of Care Code ED Cartography/Mapping Technician for Alva Che
[2022-03-22 14:22] LABS: Basophils # 0.1 10^3/uL (0.0-0.1); Eosinophils # 0.1 10^3/uL (0.0-0.8); Eosinophils % 1.3 %; Hemoglobin 17.5 g/dL (11.7-16.6); Lymphocytes % 29.3 %; Mean Corpuscular HGB Conc 34.3 g/dL (30.0-36.0); Mean Corpuscular Hemoglobin 29.9 pg (28.0-34.0); Mean Platelet Volume 10.4 fL (7.4-10.4); Monocytes # 0.6 10^3/uL (0.2-0.9); Monocytes % 8.8 %; Neutrophils # 4.09 10^3/uL (1.8-7.7); Neutrophils % 59.2 %; Nucleated Red Blood Cells % 0 %; Platelet Count 202 10^3/cmm (130-400); Red Blood Count 5.86 10^6/uL (4.1-5.3); Red Cell Distribution Width 11.5 % (12.1-15.1); White Blood Count 6.9 10^3/uL (4.0-10.0)
[2022-03-22 14:24] LABS: Add Urine Microscopic? NO; Charge for UA Resulting for Rev
[2022-03-22 14:35] VITALS: BP 138/91; PULSE 100; RESP 16; TEMP 36.7; O2SAT 98
--- NOTE | 2022-03-22 14:37 | PC.NURSE ---
Nurse contacted Pt's Guardian about him being placed on the unit. Anatoliy Child was notified and stated yes they already told me he was there .
[2022-03-22 14:43] LABS: Bilirubin Urine Neg (Negative); Blood Urine Neg (Negative); Glucose Urine UA Norm (Normal); Ketones Urine Negative (Negative); Leukocyte Esterase Urine Negative (Negative); Nitrate Urine Negative (Negative); Protein Urine Neg (Negative); Specific Gravity, Urine 1.015 (1.005-1.030); Urine Appearance Clear (CLEAR); Urine Color Yellow (Yellow); Urobilinogen Urine 1 mg/dL (Negative); pH Urine 6.5 (5-7)
[2022-03-22 14:53] LABS: Alanine Aminotransferase 76 U/L (0-41); Albumin Level 4.5 g/dL (3.5-5.2); Alkaline Phosphatase 109 U/L (40-130); Anion Gap 15.5 (5-19); Aspartate Amino Transferase 35 U/L (0-40); Blood Urea Nitrogen 19 mg/dL (6-20); Calcium 9.8 mg/dL (8.5-10.5); Carbon Dioxide 27 mmol/L (22-29); Chloride 102 mmol/L (98-107); Glomerular Filtration Rate 100.5 mL/min (90-130); Glucose 93 mg/dL (65-115); Osmolality Calculated 292 mOsm/kg (285-295); Potassium 4.5 mmol/L (3.5-5.1); Sodium 140 mmol/L (136-145); Total Bilirubin 0.3 mg/dL (0.15-1.2); Total Protein 7.5 g/dL (6.6-8.7)
[2022-03-22 15:01] LABS: Acetaminophen < 5.0 ug/mL (10-30); Alcohol Level < 10 mg/dL (0-10); Salicylate < 0.3 mg/dL (3-10)
[2022-03-22 15:03] LABS: Amphetamines Screen Urine Negative (Negative); Barbiturates Screen Urine Negative (Negative); Benzodiazepines Screen Urine Negative (Negative); Cocaine Screen Urine Negative (Negative); Opiate Screen Urine Negative (Negative); PCP Screen Urine Negative (Negative); THC Screen Urine Negative (Negative)
[2022-03-22] MEDS: ondansetron 4 MG Tablet PO (17:49)
[2022-03-22] MEDS: pantoprazole DR 40 mg Tablet PO (20:43)
[2022-03-22] MEDS: quetiapine 100 mg Tablet 200 MG PO (20:43)
[2022-03-22] MEDS: ziprasidone hcl 40 mg Capsule PO (20:43)
[2022-03-22] MEDS: multivitamin therapeutic Tablet 1 TAB PO (20:43)
[2022-03-22] MEDS: mirtazapine 15 mg Tablet PO ×2 (21:09→21:10)
[2022-03-22 22:00] VITALS: BP 130/35; PULSE 110; RESP 20; TEMP 36.8; O2SAT 95
[2022-03-23 06:00] VITALS: BP 139/98; PULSE 105; RESP 18; TEMP 36.4; O2SAT 97
[2022-03-23] MEDS: buPROPion XL (24 HR) 150 mg Tablet PO (08:34)
[2022-03-23] MEDS: buPROPion XL (24 HR) 300 mg Tablet PO (08:34)
[2022-03-23] MEDS: pantoprazole DR 40 mg Tablet PO ×2 (08:34→20:03)
--- NOTE | 2022-03-23 08:40 | W.PM.NPUH&PS ---
Providers/Chief Complaint Admitting Physician: Raymundo Cervantes MD Primary Care Provider: Kenneth Bravo DO Chief Complaint: PSYCH EVAL HPI NPU History of Present Illness Josh Colindres is a 27 year old single white male with a history of multiple inpatient psychiatric hospitalizations most recently in June 2021 who presented with his 24-hour care worker to the emergency department after he had become aggressive towards his senior engineering team leader and had threatened to shoot his senior engineering team leader and had threatened to kill himself. He was admitted to the neuropsychiatric unit for further evaluation and treatment. The patient has had multiple visits to the emergency department over the past year after having episodes of agitation and anger where he would make threats towards various staff members. He reports that he has been diagnosed with Asperger's disorder and has been residing in an independent living facility under [facility] since 2014. He reports that much of his frustration has to do with depression that has been present for several months. He reports a lack of interest in completing any activities. He reports low motivation and low energy. He reports having sleep continuity disruption. He did report that his depression had been improving and reports that he had been more hopeful. He denies any suicidal ideation but states that when he becomes upset he will make threats to hurt himself or others. The patient reports that he had previously struggled with having a sexual attraction to people's feet and had previously grabbed women's feet and had attempted to ask strangers about their shoes. He reports that he had been prescribed intramuscular Depo-Provera for about 5 years ending in 2019. He reports that his sexual fetish and recurring obsessive thoughts about women's feet had declined substantially but he reports that he has been frustrated that he has had a permanent change in his libido as he had been unable to masturbate or become erect. He describes having his primary problems with engaging with others including engaging with potential sutures has been impaired despite normal levels of testosterone. He reports that he does not feel like he can be normal and reports that he has been struggling with managing his anger. Inpatient psychiatric history: He reports multiple inpatient hospitalizations with most recent hospitalization here at [facility] in June 2021. Outpatient psychiatric history: He is followed at [facility] outpatient behavioral health clinic with most recent visit approximately 1 month ago. Medical history: Gastritis Surgeries: Foot surgery Allergies: Haldol/Ritalin Medications: Remeron 15 mg at night, omeprazole 40 mg twice a day, Seroquel 200 mg at night, Geodon 40 mg at night, Wellbutrin 450 mg daily Drug and alcohol history: None Legal history: None Social history: The patient was born in [facility] and lived with his biological mother until the age of 6. He has no contact with his biological father. He reports having been placed in foster care and was eventually adopted by his foster mom's mother. He reports that he had problems with learning and dropped out of school in the 11th grade and has not obtained his GED. He had reported having problems with anger and agitation with the patient reporting no history of sexual physical or emotional abuse. He had acknowledged having been evaluated for having behavioral problems as a child. He has no known family psychiatric history noted. His legal guardian is currently a local program specialist in [facility]. He has been living under the care of [facility] since 2014 where he does not work and does not attend a day program. Meds NPU Home Medications Medication Instructions Recorded Confirmed Last Taken Type acetaminophen 500 mg tablet 500 mg PO TID PRN pain 02/13/19 03/22/22 1 Day Ago History (Tylenol Extra Strength) ~03/21/22 metoclopramide HCl 10 mg tablet 10 mg PO Q6H PRN nausea and 05/23/21 03/22/22 Unknown Rx (Reglan) vomiting #20 tabs calcium carbonate 500 mg calcium 500 mg PO Q4H PRN Stomach Upset 10/06/21 03/22/22 Unknown History (1,250 mg) chewable tablet loratadine 10 mg tablet (Claritin) 10 mg PO DAILY PRN Allergy Symptoms 10/06/21 03/22/22 Unknown History multivitamin with folic acid 400 1 tab PO DAILY@21 10/06/21 03/22/22 12/21/21 History mcg tablet (Daily-Shabbir (with folic acid)) bupropion HCl 150 mg 24 hr tablet, 150 mg PO DAILY@ #30 tabs 12/21/21 03/22/22 12/21/21 Rx extended release bupropion HCl 300 mg 24 hr tablet, 300 mg PO DAILY@ #30 tabs 12/21/21 03/22/22 12/21/21 Rx extended release omeprazole 40 mg capsule,delayed 40 mg PO BID@ #60 caps 12/21/21 03/22/22 12/21/21 Rx release quetiapine 200 mg tablet (Seroquel) 200 mg PO .HS #30 tabs 12/21/21 03/22/22 12/21/21 Rx ziprasidone HCl 40 mg capsule 40 mg PO BEDTIME@21 #30 caps 12/21/21 03/22/22 12/21/21 Rx (Geodon) naphazo HCl 0.025 %-hyprome 0.2 1 drp ophthalmic (eye) QID PRN 12/22/21 03/22/22 Unknown History %-ps 80 0.5 %-Zn sulf 0.25 % eye Allergy Symptoms drops (Clear Eyes Complete) mirtazapine 15 mg tablet (Remeron) 15 mg PO .HS #30 tabs 02/24/22 03/22/22 Unknown Rx Allergies Allergy/AdvReac Type Severity Reaction Status Date / Time haloperidol [From Haldol] Allergy Unknown Verified 02/24/22 14:52 methylphenidate Allergy Unknown Verified 02/24/22 14:52 [From Ritalin] PFSH NPU PFSH: Medical History Autistic disorder Disruptive mood dysregulation disorder Major depressive disorder, recurrent, moderate Psychiatric care Surgical History H/O esophagogastroduodenoscopy (05/30/21) History of foot surgery right- 2020 Social History Smoking and tobacco status: never smoked Mental Status Exam MSE Comments: This is an extremely tall, overweight, white male, in green hospital scrubs with adequate grooming, and fleeting eye contact. No abnormal involuntary motor movements, tics tremors or stereotypies. He was cooperative with exam in no acute distress. Speech had normal rate and volume, with decreased prosody and monotone speech. Mood described as depressed. His affect was mood congruent and flat. Thought process was linear and organized. Thought content: patient denied suicidal or homicidal ideation, there were no delusions reported or noted, he denied any auditory or visual hallucinations. Attention and concentration were intact, and memory appeared unreliable, but none were formally tested. He is alert and oriented to person and situation at least. Insight and judgment are limited. Impulse control is impaired. Vitals/I&O/Wt Last Vital Signs Temp 98.3 F 03/22/22 22:00 Pulse 110 H 03/22/22 22:00 Resp 20 H 03/22/22 22:00 BP 130/35 03/22/22 22:00 Pulse Ox 95 03/22/22 22:00 O2 Del Method 03/22/22 14:35 Weight last 48 hrs Weight 14.061 kg Data NPU 03/22/22 14:13 03/22/22 14:13 A&P Assessment and plan (1) Major depressive disorder, recurrent severe without psychotic features: (2) Disruptive mood dysregulation disorder: (3) Autistic disorder: Plan This is a 25-year-old, white male, with autism, major depressive disorder, recurrent, disruptive mood dysregulation disorder, who presents for admission complaining of depression and increasing frustration with his diminished libido. RECOMMENDATION AND PLAN: 1.? Increase Remeron to 30 mg at night, continue Wellbutrin XL at 450 mg daily. Continue quetiapine at 200 mg at night. 2.? Therapeutic observation 15-minute checks on the unit 3.? Encourage individual, group and milieu therapies. 4.? Attempt to gather collateral information. Involuntary Hold Information 96 Hour Hold: 96 Hour Involuntary Admission: No Attestations NPU Medical Necessity Statement*: Patient will require acute inpatient psychiatric hospitalization with expected care expected to cross 2 midnights with likely length of stay 2 to 4 days. Coding Level of Care Code Acute Code for [facility] Fwd Diagnoses Major depressive disorder, recurrent severe without psychotic features F33.2 Disruptive mood dysregulation disorder F34.81 Autistic disorder F84.0
[2022-03-23] MEDS: calcium carbonate 500 mg Chew Tablet PO ×2 (10:09→14:02)
[2022-03-23 13:25] VITALS: BP 142/84; PULSE 102; RESP 17; TEMP 36.7; O2SAT 96
--- NOTE | 2022-03-23 14:02 | PC.NURSE ---
PRN TUMS 500 MG CHEWABLE TABLET GIVEN PO PER PT C/O STOMACH UPSET
[2022-03-23 19:51] VITALS: BP 109/67; PULSE 113; RESP 18; TEMP 36.7; O2SAT 95
[2022-03-23] MEDS: quetiapine 100 mg Tablet 200 MG PO (20:03)
[2022-03-23] MEDS: mirtazapine 30 mg Tablet PO (20:03)
[2022-03-23] MEDS: multivitamin therapeutic Tablet 1 TAB PO (20:03)
[2022-03-23] MEDS: ziprasidone hcl 40 mg Capsule PO (20:04)
[2022-03-23] MEDS: ondansetron 4 MG Tablet PO (20:20)
[2022-03-24 06:00] VITALS: RESP 18
[2022-03-24] MEDS: buPROPion XL (24 HR) 150 mg Tablet PO (09:13)
[2022-03-24] MEDS: buPROPion XL (24 HR) 300 mg Tablet PO (09:13)
[2022-03-24] MEDS: pantoprazole DR 40 mg Tablet PO ×2 (09:13→21:31)
[2022-03-24 14:00] VITALS: BP 149/85; PULSE 105; RESP 17; TEMP 37.1; O2SAT 96
--- NOTE | 2022-03-24 14:11 | P.NPUPN_ITS ---
Subjective NPU Subjective: Patient is a 27-year-old white male with autistic disorder and depression admitted with increased agitation and reported suicidal ideation and physical threats towards staff members at his permanent living facility. He reported that he continued to feel frustrated but stated that his mood was better. He had reported continued periods of intense anger but states that his depression has been slowly improving. Patient had attended groups and reported no worsening anxiety here today. Patient denied any feelings of hopelessness or worthlessness. He had reported some struggles with concentration. He had minimized any suicidal thoughts or homicidal thoughts today. Mental Status Exam MSE Comments: This is an extremely tall, overweight, white male, in [facility] scrubs with adequate grooming, and fleeting eye contact. No abnormal involuntary motor movements, tics tremors or stereotypies. He was cooperative with exam in no acute distress. Speech had normal rate and volume, with decr eased prosody and monotone speech. Mood described as okay. His affect was mood incongruent and restricted in range.. Thought process was linear and organized. Thought content: patient denied suicidal or homicidal ideation, there were no delusions reported or noted, he denied any auditory or visual hallucinations. Attention and concentration were intact, and memory appeared reliable, but none were formally tested. He is alert and oriented to person and situation. Insight and judgment are limited. Impulse control is impaired. Vitals/I&O/Wt Last Vital Signs Temp 98.1 F 03/23/22 19:51 Pulse 113 H 03/23/22 19:51 Resp 18 03/24/22 06:00 BP 109/67 03/23/22 19:51 Pulse Ox 95 03/23/22 19:51 O2 Del Method 03/22/22 14:35 Data NPU 03/22/22 14:13 03/22/22 14:13 A&P Assessment and plan (1) Major depressive disorder, recurrent severe without psychotic features: (2) Disruptive mood dysregulation disorder: (3) Autistic disorder: Plan This is a 25-year-old, white male, with autism, major depressive disorder, recurrent, disruptive mood dysregulation disorder, who presents for admission complaining of depression and increasing frustration with his diminished libido. RECOMMENDATION AND PLAN: 1.? Continue Remeron at 30 mg at night, continue Wellbutrin XL at 450 mg daily. Continue quetiapine at 200 mg at night, decrease Geodon at 20mg at night. Serum Prolactin ordered-gynecomastia evident, no . 2.? Therapeutic observation 15-minute checks on the unit 3.? Encourage individual, group and milieu therapies. 4.? Attempt to gather collateral information. Involuntary Hold Information 96 Hour Hold: 96 Hour Involuntary Admission: No Attestations NPU Medical Necessity Statement*: Patient will require acute inpatient psychiatric hospitalization with expected care expected to cross 2 midnights with likely length of stay 2 to 4 days. Coding Level of Care Code Acute Code for Chg Fwd Diagnoses Major depressive disorder, recurrent severe without psychotic features F33.2 Disruptive mood dysregulation disorder F34.81 Autistic disorder F84.0
[2022-03-24 17:09] LABS: Prolactin 4.45 ng/mL (4.0-15.2)
[2022-03-24] MEDS: calcium carbonate 500 mg Chew Tablet PO (18:47)
[2022-03-24] MEDS: quetiapine 100 mg Tablet 200 MG PO (21:30)
[2022-03-24] MEDS: mirtazapine 30 mg Tablet PO (21:31)
[2022-03-24] MEDS: ziprasidone hcl 20 mg Capsule PO (21:31)
[2022-03-24] MEDS: multivitamin therapeutic Tablet 1 TAB PO (21:31)
[2022-03-24 22:00] VITALS: BP 152/87; PULSE 95; RESP 22; TEMP 36.6; O2SAT 98
[2022-03-24] MEDS: OLANZapine 5 mg ODT PO (23:56)
[2022-03-24] MEDS: trazodone 50 mg Tablet PO (23:56)
[2022-03-25 06:00] VITALS: BP 123/82; PULSE 111; RESP 18; TEMP 36.6; O2SAT 97
[2022-03-25] MEDS: pantoprazole DR 40 mg Tablet PO (08:56)
[2022-03-25] MEDS: buPROPion XL (24 HR) 300 mg Tablet PO (08:56)
[2022-03-25] MEDS: buPROPion XL (24 HR) 150 mg Tablet PO (08:56)
[2022-03-25] MEDS: acetaminophen 325 mg Tablet 650 MG PO (11:28)
--- NOTE | 2022-03-25 12:29 | W.PM.NPUDCS ---
Diagnoses at Discharge Discharge Diagnosis (1) Major depressive disorder, recurrent severe without psychotic features: Status: Acute (2) Disruptive mood dysregulation disorder: Status: Acute (3) Autistic disorder: Status: Acute Reason for Visit Reason for Visit: Suicidal ideation Brief History: History of Present Illness Josh Colindres is a 27 year old single white male with a history of multiple inpatient psychiatric hospitalizations most recently in June 2021 who presented with his 24-hour care worker to the emergency department after he had become aggressive towards his production team manager and had threatened to shoot his production team manager and had threatened to kill himself.? He was admitted to the neuropsychiatric unit for further evaluation and treatment.? The patient has had multiple visits to the emergency department over the past year after having episodes of agitation and anger where he would make threats towards various staff members.? He reports that he has been diagnosed with Asperger's disorder and has been residing in an independent living facility under [facility] since 2014.? He reports that much of his frustration has to do with depression that has been present for several months.? He reports a lack of interest in completing any activities.? He reports low motivation and low energy.? He reports having sleep continuity disruption.? He did report that his depression had been improving and reports that he had been more hopeful.? He denies any suicidal ideation but states that when he becomes upset he will make threats to hurt himself or others.? The patient reports that he had previously struggled with having a sexual attraction to people's feet and had previously grabbed women's feet and had attempted to ask strangers about their shoes.? He reports that he had been prescribed intramuscular Depo-Provera for about 5 years ending in 2019.? He reports that his sexual fetish and recurring obsessive thoughts about women's feet had declined substantially but he reports that he has been frustrated that he has had a permanent change in his libido as he had been unable to masturbate or become erect.? He describes having his primary problems with engaging with others including engaging with potential sutures has been impaired despite normal levels of testosterone.? He reports that he does not feel like he can be normal and reports that he has been struggling with managing his anger.? Inpatient psychiatric history: He reports multiple inpatient hospitalizations with most recent hospitalization here at [facility] in June 2021. Outpatient psychiatric history: He is followed at [facility] outpatient behavioral health clinic with most recent visit approximately 1 month ago. Medical history: Gastritis Surgeries: Foot surgery Allergies: Haldol/Ritalin Medications: Remeron 15 mg at night, omeprazole 40 mg twice a day, Seroquel 200 mg at night, Geodon 40 mg at night, Wellbutrin 450 mg daily Drug and alcohol history: None Legal history: None Social history: The patient was born in [facility] and lived with his biological mother until the age of 6.? He has no contact with his biological father.? He reports having been placed in foster care and was eventually adopted by his foster mom's mother.? He reports that he had problems with learning and dropped out of school in the 11th grade and has not obtained his GED.? He had reported having problems with anger and agitation with the patient reporting no history of sexual physical or emotional abuse.? He had acknowledged having been evaluated for having behavioral problems as a child.? He has no known family psychiatric history noted.? His legal guardian is currently a local deputy commonwealth's attorney in [facility].? He has been living under the care of [facility] since 2014 where he does not work and does not attend a day program. Hospital Course Hospital Course Discharge Summary: During the hospitalization, patient had routine laboratory studies which were within normal limits except for few outliers. Additionally there was a general medical evaluation which was also within normal limits and revealed no new acute processes. At the time of discharge, lethality was denied and psychosis was resolving. Mood and anxiety were well managed. Patient endorsed a plan to avoid all drugs of abuse and follow-up with the aftercare recommendations of the treatment team. Patient was evaluated and deemed to be absent credible lethality, and had achieved the maximum benefit from an inpatient hospitalization, so was discharged. Medication adjustments included an increase in his Mirtazapine to 30mg at night and a decrease in Geodon to 20mg at night with recommendation to discontinue Geodon on outpatient basis. Involuntary Hold Information 96 Hour Hold: 96 Hour Involuntary Admission: No Mental Status Exam MSE Comments: This is an extremely tall, overweight, white male, in green hospital scrubs with adequate grooming, and fleeting eye contact. No abnormal involuntary motor movements, tics tremors or stereotypies. He was cooperative with exam in no acute distress. Speech had normal rate and volume, with decreased prosody and monotone speech. Mood described as good. His affect remained somewhat flat. Thought process was linear and organized. Thought content: patient denied suicidal or homicidal ideation, there were no delusions reported or noted, he denied any auditory or visual hallucinations. Attention and concentration were intact, and memory appeared reliable, but none were formally tested. He is alert and oriented to person and situation. Insight and judgment are improving. Impulse control was improved. Discharge Data Studies Completed and Pending: Laboratory Results WBC 6.9 10^3/uL (4.0- 10.0) 03/22/22 14:13 RBC 5.86 10^6/uL (4.1 -5.3) H 03/22/22 14:13 Hgb 17.5 g/dL (11.7-1 6.6) H 03/22/22 14:13 Hct 51.0 % (42.0-52.0 ) 03/22/22 14:13 MCV 87.0 fl (80-94) 03/22/22 14:13 MCH 29.9 pg (28.0-34. 0) 03/22/22 14:13 MCHC 34.3 g/dL (30.0-3 6.0) 03/22/22 14:13 RDW 11.5 % (12.1-15.1 ) L 03/22/22 14:13 Plt Count 202 10^3/cmm (130 -400) 03/22/22 14:13 MPV 10.4 fL (7.4-10.4 ) 03/22/22 14:13 Neut % (Auto) 59.2 % 03/22/22 14:13 Lymph % (Auto) 29.3 % 03/22/22 14:13 [place] % (Auto) 8.8 % 03/22/22 14:13 Eos % (Auto) 1.3 % 03/22/22 14:13 Baso % (Auto) 1.0 % 03/22/22 14:13 Neut # (Auto) 4.09 10^3/uL (1.8 -7.7) 03/22/22 14:13 Lymph # (Auto) 2.0 10^3/uL (0.8- 4.8) 03/22/22 14:13 [place] # (Auto) 0.6 10^3/uL (0.2- 0.9) 03/22/22 14:13 Eos # (Auto) 0.1 10^3/uL (0.0- 0.8) 03/22/22 14:13 Baso # (Auto) 0.1 10^3/uL (0.0- 0.1) 03/22/22 14:13 Nucleated RBC % (a uto) 0 % 03/22/22 14:13 Nucleated RBCs # 0.0 /100WBC 03/22/22 14:13 Sodium 140 mmol/L (136-1 45) 03/22/22 14:13 Potassium 4.5 mmol/L (3.5-5 .1) 03/22/22 14:13 Chloride 102 mmol/L (98-10 7) 03/22/22 14:13 Carbon Dioxide 27 mmol/L (22-29) 03/22/22 14:13 Anion Gap 15.5 (5-19) 03/22/22 14:13 BUN 19 mg/dL (6-20) 03/22/22 14:13 Creatinine 0.9 mg/dL (0.7-1. 2) 03/22/22 14:13 GFR Calculation 100.5 mL/min (90- 130) 03/22/22 14:13 Glucose 93 mg/dL (65-115) 03/22/22 14:13 Calculated Osmolal ity 292 mOsm/kg (285- 295) 03/22/22 14:13 Calcium 9.8 mg/dL (8.5-10 .5) 03/22/22 14:13 Total Bilirubin 0.3 mg/dL (0.15-1 .2) 03/22/22 14:13 AST 35 U/L (0-40) 03/22/22 14:13 ALT 76 U/L (0-41) H 03/22/22 14:13 Alkaline Phosphata se 109 U/L (40-130) 03/22/22 14:13 Total Protein 7.5 g/dL (6.6-8.7 ) 03/22/22 14:13 Albumin 4.5 g/dL (3.5-5.2 ) 03/22/22 14:13 Globulin 3.0 g/dL (1.3-4.6 ) 03/22/22 14:13 Prolactin 4.45 ng/mL (4.0-1 5.2) 03/22/22 14:13 Urine Color Yellow (Yellow) 03/22/22 14:05 Urine Appearance Clear (CLEAR) 03/22/22 14:05 Urine pH 6.5 (5-7) 03/22/22 14:05 Ur Specific Gravit y 1.015 (1.005-1.0 30) 03/22/22 14:05 Urine Protein Neg (Negative) 03/22/22 14:05 Urine Glucose (UA) Norm (Normal) 03/22/22 14:05 Urine Ketones Negative (Negati ve) 03/22/22 14:05 Urine Blood Neg (Negative) 03/22/22 14:05 Urine Nitrate Negative (Negati ve) 03/22/22 14:05 Urine Bilirubin Neg (Negative) 03/22/22 14:05 Urine Urobilinogen 1 mg/dL (Negative ) H 03/22/22 14:05 Ur Leukocyte Michelle ase Negative (Negati ve) 03/22/22 14:05 Salicylates < 0.3 mg/dL (3-10 ) L 03/22/22 14:13 Urine Opiates Scre en Negative ng/mL (N egative) 03/22/22 14:05 Acetaminophen < 5.0 ug/mL (10-3 0) L 03/22/22 14:13 Ur Barbiturates Sc reen Negative ng/mL (N egative) 03/22/22 14:05 Ur Phencyclidine S crn Negative ng/mL (N egative) 03/22/22 14:05 Ur Amphetamines Sc reen Negative ng/mL (N egative) 03/22/22 14:05 U Benzodiazepines Scrn Negative ng/mL (N egative) 03/22/22 14:05 Urine Cocaine Scre en Negative ng/mL (N egative) 03/22/22 14:05 U Marijuana (THC) Screen Negative ng/mL (N egative) 03/22/22 14:05 Ethyl Alcohol < 10 mg/dL (0-10) 03/22/22 14:13 Vitals: Last Vital Signs Temp 97.9 F 03/25/22 06:00 Pulse 111 H 03/25/22 06:00 Resp 18 03/25/22 06:00 BP 123/82 03/25/22 06:00 Pulse Ox 97 03/25/22 06:00 O2 Del Method 03/25/22 06:00 Discharge Plan Discharge Patient Disposition: Home Condition: Stable Prescriptions: New mirtazapine 30 mg Tablet 30 mg PO BEDTIME 30 Days Qty: 30 1RF ziprasidone HCl 20 mg Capsule 20 mg PO BEDTIME@21 30 Days Qty: 30 1RF Continued acetaminophen [Tylenol Extra Strength] 500 mg tablet 500 mg PO TID PRN (Reason: pain) quetiapine [Seroquel] 200 mg tablet 200 mg PO .HS Qty: 30 1RF omeprazole 40 mg Capsule,Delayed Release(Dr/Ec) 40 mg PO BID@09,21 Qty: 60 0RF bupropion HCl 300 mg tablet extended release 24 hr 300 mg PO DAILY@09 Qty: 30 1RF bupropion HCl 150 mg tablet extended release 24 hr 150 mg PO DAILY@09 Qty: 30 1RF Clear Eyes Complete 0.025-0.2-0.5 % Drops 1 drp OPHTHALMIC (EYE) QID PRN (Reason: Allergy Symptoms) metoclopramide HCl [Reglan] 10 mg tablet 10 mg PO Q6H PRN (Reason: nausea and vomiting) Qty: 20 0RF loratadine [Claritin] 10 mg Tablet 10 mg PO DAILY PRN (Reason: Allergy Symptoms) multivitamin with folic acid [Daily-Shabbir (with folic acid)] 400 mcg tablet 1 tab PO DAILY@21 calcium carbonate 500 mg calcium (1,250 mg) Tablet,Chewable 500 mg PO Q4H PRN (Reason: Stomach Upset) Discontinued mirtazapine [Remeron] 15 mg tablet 15 mg PO .HS Qty: 30 1RF ziprasidone HCl [Geodon] 40 mg capsule 40 mg PO BEDTIME@21 Qty: 30 1RF Discharge Orders: Discharge Order (Routine); Ordered 03/25/22 Ordered By: Raymundo Cervantes Referrals: Lenora Lafleur PMHNP [Staff Physician] - 03/26/22 10:45 am (Appointment set for 03/26/22 at 10:45 check in.) Kenneth Bravo DO [Primary Care Provider] - Discharge Diet: Usual diet Discharge Activity: Resume usual activity Patient Instructions: Mirtazapine (By mouth), Ziprasidone (By mouth), Mood Disorders (DC), Opioid Safety Discharge Attestations NPU Time Spent in Discharge Care*: less than 30 min Specific Discharge Activities: Specific discharge activities: educating patient, discussing with bilingual patient support caseworker/social workers/dc planners, documenting/other paperwork and evaluating patient/reviewing data Status at Discharge: Cognitive status at discharge: cognitively intact, Behavioral status at discharge: cooperative, Coding Level of Care Code Acute Chg FW DC note Diagnoses Major depressive disorder, recurrent severe without psychotic features F33.2 Disruptive mood dysregulation disorder F34.81 Autistic disorder F84.0
[2022-03-25 12:46] VITALS: BP 123/82; PULSE 111; RESP 18; TEMP 36.6; O2SAT 97
[2022-03-25] MEDS: calcium carbonate 500 mg Chew Tablet PO (13:37)
[2022-03-25 14:00] VITALS: BP 125/74; PULSE 83; RESP 18; TEMP 36.9; O2SAT 97
--- NOTE | 2022-03-25 16:19 | PC.NURSE ---
pt discharge instructions discussed with caregiver, meds to bed given to caregiver pt left via ambulatory to caregivers pov.
== END 2022-03-25 16:21 | disposition home or self-care (01) | DRG 885 ==
LOC: ER 14:09 → NP 14:30
PROVIDERS: Admitting Provider Psychiatry & Neurology Psychiatry; Emergency Provider Student in an Organized Health Care Education/Training Program; PCP Internal Medicine; Visit Provider Psychiatry & Neurology Psychiatry
DX: F33.2 Major depressive disorder, recurrent severe without psychotic features (principal); F34.81 Disruptive mood dysregulation disorder; R45.88 Nonsuicidal self-harm; F84.5 Asperger's syndrome; R68.82 Decreased libido
CPT/HCPCS: 12345; 36415; 80053; 80306; 80307; 81003; 84146; 85025; 97150; 97165; 99238; 99285; Q0162

== ENCOUNTER 2022-04-12 20:54 | Emergency (ER) | payer MEDICAID, SELFPAY ==
[2022-04-12 20:55] VITALS: BP 133/85; PULSE 98; RESP 18; TEMP 36.7; O2SAT 96
--- NOTE | 2022-04-12 22:17 | ED.C_ITS ---
HPI - Psych General: Chief Complaint: Psychiatric Symptoms Stated Complaint: anger issues Time Seen by Provider: 04/12/22 20:58 Source: patient History of Present Illness: 27 year old autistic male presents from a senior care environment. He became agitated there, and evidently threatened to harm a staff member. He's much more calm now. This is not uncommon for him. He's well known to this service. He denies any recent medical illness. MD complaint: other Onset (ago): hour(s) History of same: Yes Relieving factors: none Exacerbating factors: other Context: significant life stressor Associated psychiatric symptoms: depression Associated symptoms: Reports depression; Deny auditory hallucinations, visual hallucinations, delusions, homicidal ideation or suicidal ideation Treatments prior to arrival: none Review of Systems Const: Denies: fever(s), chills or body aches Eyes: Denies: change in vision Card: Denies: chest pain or palpitations Resp: Denies: dyspnea, productive cough, non-productive cough or wheezing GI: Denies: abdominal pain, nausea, vomiting, diarrhea or hematochezia Skin/Breast: Denies: rash Neuro: Denies: headache(s), weakness in extremities, dizziness or confusion Psych: Reports: depression; Denies: visual hallucinations, auditory hallucinations, suicidal ideation or homicidal ideation [facility] ED PFSH: Medical History Autistic disorder Disruptive mood dysregulation disorder Major depressive disorder, recurrent, moderate Psychiatric care Surgical History H/O esophagogastroduodenoscopy (05/30/21) History of foot surgery right- 2020 Social History Smoking and tobacco status: never smoked Physical Exam Const: COMMON NORMALS: no acute distress GENERAL APPEARANCE: cooperative; not ill appearing and not frail appearing HENMT: COMMON NORMALS: normocephalic, atraumatic and Normal external nose present HEAD & SCALP: normocephalic and atraumatic FACE & SINUS: normal facial exam and face symmetric NOSE: Normal external nose present Eye: COMMON NORMALS: Equal, round and reactive pupils present and EOMs intact bilaterally PUPIL: Yes Equal, round and reactive pupils present Neck/C-Spine: GENERAL: Yes trachea midline Chest: CHEST: Yes Symmetrical chest wall rise Resp: COMMON NORMALS: normal respiratory effort, No retractions, No use of accessory muscles and clear to auscultation bilaterally AUSCULTATION: clear to auscultation bilaterally Cardio: COMMON NORMALS: regular rate and regular rhythm RATE: regular rate RHYTHM: regular rhythm GI: COMMON NORMALS: Normal to inspection, nondistended, normoactive bowel sounds present Extremity: COMMON NORMALS: no pedal edema Neuro: FCO COMA SCALE: document GCS findings Fco coma scale eye opening: Spontaneous [place] coma scale verbal response: Orientated Fco coma scale motor response: Obey commands [place] coma scale total score: 15 SENSORY EXAM: Yes extremities (intact) Psych: COMMON NORMALS: speech normal SPEECH: Yes normal speech THOUGHT CONTENT: No delusions Skin: COMMON NORMALS: no rashes or lesions noted GENERAL SKIN EXAM: no rashes or lesions noted Course Consultations: Consultation #1: Dante Time: 22:19 Vital Signs: Vital signs: Vital Signs Temperature 98.1 F 04/12/22 20:55 Pulse Rate 98 04/12/22 20:55 Respiratory Rate 16 04/12/22 22:35 Blood Pressure 133/85 04/12/22 20:55 Pulse Oximetry 98 04/12/22 22:35 Oxygen Delivery Me thod 04/12/22 20:55 [facility] - Psych Medical Decision Making Spoke with psychiatry. Historically, there is little to no benefit and inpatient admission for this patient from a neuropsychiatric unit standpoint. Medically he is stable. He had taken medication at home, and on my reinterview, medication is beginning to kick in. He is no longer having hostile thoughts. He does not wish to hurt himself. He wishes to go home, and go to bed. I think this is appropriate. Close outpatient follow-up is indicated for this patient. He can return if worsening. Lab Data 04/12/22 22:12 04/12/22 22:12 Laboratory Results WBC 6.1 10^3/uL (4.0-10.0) 04/12/22 22:12 RBC 5.12 10^6/uL (4.1-5.3) 04/12/22 22:12 Hgb 15.3 g/dL (11.7-16.6) 04/12/22 22:12 Hct 46.1 % (42.0-52.0) 04/12/22 22:12 MCV 90.0 fl (80-94) 04/12/22 22:12 MCH 29.9 pg (28.0-34.0) 04/12/22 22:12 MCHC 33.2 g/dL (30.0-36.0) 04/12/22 22:12 RDW 12.1 % (12.1-15.1) 04/12/22 22:12 Plt Count 144 10^3/cmm (130-400) 04/12/22 22:12 MPV 11.1 fL (7.4-10.4) H 04/12/22 22:12 Neut % (Auto) 55.0 % 04/12/22 22:12 Lymph % (Auto) 33.7 % 04/12/22 22:12 [place] % (Auto) 8.2 % 04/12/22 22:12 Eos % (Auto) 2.1 % 04/12/22 22:12 Baso % (Auto) 0.8 % 04/12/22 22:12 Neut # (Auto) 3.34 10^3/uL (1.8-7.7) 04/12/22 22:12 Lymph # (Auto) 2.1 10^3/uL (0.8-4.8) 04/12/22 22:12 [place] # (Auto) 0.5 10^3/uL (0.2-0.9) 04/12/22 22:12 Eos # (Auto) 0.1 10^3/uL (0.0-0.8) 04/12/22 22:12 Baso # (Auto) 0.1 10^3/uL (0.0-0.1) 04/12/22 22:12 Nucleated RBC % (auto) 0 % 04/12/22 22:12 Nucleated RBCs # 0.0 /100WBC 04/12/22 22:12 Sodium 140 mmol/L (136-145) 04/12/22 22:12 Potassium 3.5 mmol/L (3.5-5.1) 04/12/22 22:12 Chloride 106 mmol/L (98-107) 04/12/22 22:12 Carbon Dioxide 22 mmol/L (22-29) 04/12/22 22:12 Anion Gap 15.5 (5-19) 04/12/22 22:12 BUN 13 mg/dL (6-20) 04/12/22 22:12 Creatinine 0.9 mg/dL (0.7-1.2) 04/12/22 22:12 GFR Calculation 100.5 mL/min (90-130) 04/12/22 22:12 Glucose 124 mg/dL (65-115) H 04/12/22 22:12 Calculated Osmolality 292 mOsm/kg (285-295) 04/12/22 22:12 Calcium 9.0 mg/dL (8.5-10.5) 04/12/22 22:12 Total Bilirubin 0.4 mg/dL (0.15-1.2) 04/12/22 22:12 AST 19 U/L (0-40) 04/12/22 22:12 ALT 37 U/L (0-41) 04/12/22 22:12 Alkaline Phosphatase 94 U/L (40-130) 04/12/22 22:12 Total Protein 6.6 g/dL (6.6-8.7) 04/12/22 22:12 Albumin 3.8 g/dL (3.5-5.2) 04/12/22 22:12 Globulin 2.8 g/dL (1.3-4.6) 04/12/22 22:12 TSH 0.94 uIU/mL (0.27-4.20) 04/12/22 22:12 Free T4 0.92 ng/dL (0.82-1.77) 04/12/22 22:12 Salicylates < 0.3 mg/dL (3-10) L 04/12/22 22:12 Acetaminophen < 5.0 ug/mL (10-30) L 04/12/22 22:12 Ethyl Alcohol < 10 mg/dL (0-10) 04/12/22 22:12 Discharge Plan Discharge Patient Disposition: Home Clinical Impression: Autistic disorder, Anger reaction Condition: Stable Prescriptions: No Action acetaminophen [Tylenol Extra Strength] 500 mg tablet 500 mg PO TID PRN (Reason: pain) bupropion HCl 150 mg tablet extended release 24 hr 150 mg PO DAILY@09 Qty: 30 1RF bupropion HCl 300 mg tablet extended release 24 hr 300 mg PO DAILY@09 Qty: 30 1RF quetiapine [Seroquel] 200 mg tablet 200 mg PO .HS Qty: 30 1RF omeprazole 40 mg Capsule,Delayed Release(Dr/Ec) 40 mg PO BID@,21 Qty: 60 0RF Clear Eyes Complete 0.025-0.2-0.5 % Drops 1 drp OPHTHALMIC (EYE) QID PRN (Reason: Allergy Symptoms) mirtazapine 30 mg Tablet 30 mg PO BEDTIME 30 Days Qty: 30 1RF ziprasidone HCl 20 mg Capsule 20 mg PO BEDTIME@21 30 Days Qty: 30 1RF metoclopramide HCl [Reglan] 10 mg tablet 10 mg PO Q6H PRN (Reason: nausea and vomiting) Qty: 20 0RF loratadine [Claritin] 10 mg Tablet 10 mg PO DAILY PRN (Reason: Allergy Symptoms) multivitamin with folic acid [Daily-Shabbir (with folic acid)] 400 mcg tablet 1 tab PO DAILY@21 calcium carbonate 500 mg calcium (1,250 mg) Tablet,Chewable 500 mg PO Q4H PRN (Reason: Stomach Upset) Discharge Orders: Discharge ED (Routine); Ordered 04/12/22 Ordered By: Milo Locke Referrals: Kenneth Bravo DO [Primary Care Provider] - Activity Restrictions/Additional Instructions: You will be discharged to home. See your behavioral health provider this coming week. Coding Level of Care Code ED Electronic Health Records Specialist for Alva Che
[2022-04-12 22:35] VITALS: RESP 16; O2SAT 98
[2022-04-12 22:36] LABS: Basophils # 0.1 10^3/uL (0.0-0.1); Basophils % 0.8 %; Eosinophils # 0.1 10^3/uL (0.0-0.8); Eosinophils % 2.1 %; Hematocrit 46.1 % (42.0-52.0); Hemoglobin 15.3 g/dL (11.7-16.6); Lymphocytes # 2.1 10^3/uL (0.8-4.8); Lymphocytes % 33.7 %; Mean Corpuscular HGB Conc 33.2 g/dL (30.0-36.0); Mean Corpuscular Hemoglobin 29.9 pg (28.0-34.0); Mean Platelet Volume 11.1 fL (7.4-10.4); Monocytes # 0.5 10^3/uL (0.2-0.9); Monocytes % 8.2 %; Neutrophils # 3.34 10^3/uL (1.8-7.7); Nucleated Red Blood Cells % 0 %; Platelet Count 144 10^3/cmm (130-400); Red Blood Count 5.12 10^6/uL (4.1-5.3); Red Cell Distribution Width 12.1 % (12.1-15.1); White Blood Count 6.1 10^3/uL (4.0-10.0)
[2022-04-12 23:03] LABS: Alanine Aminotransferase 37 U/L (0-41); Albumin Level 3.8 g/dL (3.5-5.2); Alkaline Phosphatase 94 U/L (40-130); Anion Gap 15.5 (5-19); Aspartate Amino Transferase 19 U/L (0-40); Blood Urea Nitrogen 13 mg/dL (6-20); Carbon Dioxide 22 mmol/L (22-29); Chloride 106 mmol/L (98-107); Free T4 Free Thyroxine 0.92 ng/dL (0.82-1.77); Globulin 2.8 g/dL (1.3-4.6); Glomerular Filtration Rate 100.5 mL/min (90-130); Glucose 124 mg/dL (65-115); Osmolality Calculated 292 mOsm/kg (285-295); Potassium 3.5 mmol/L (3.5-5.1); Sodium 140 mmol/L (136-145); Thyroid Stimulating Hormone 0.94 uIU/mL (0.27-4.20); Total Bilirubin 0.4 mg/dL (0.15-1.2); Total Protein 6.6 g/dL (6.6-8.7)
[2022-04-12 23:18] LABS: Acetaminophen < 5.0 ug/mL (10-30); Alcohol Level < 10 mg/dL (0-10); Salicylate < 0.3 mg/dL (3-10)
== END 2022-04-12 22:33 | disposition home or self-care (01) ==
PROVIDERS: Emergency Provider Emergency Medicine; PCP Internal Medicine
DX: R45.4 Irritability and anger (principal); F84.0 Autistic disorder
CPT/HCPCS: 80053; 80307; 84439; 84443; 85025; 99283

== ENCOUNTER → 2022-05-11 14:43 | Outpatient (BNVA) | payer MEDICAID, SELFPAY | PROVIDERS: PCP Internal Medicine; Visit Provider Nurse Practitioner | DX: Z79.899 Other long term (current) drug therapy (principal); F33.1 Major depressive disorder, recurrent, moderate; F84.0 Autistic disorder | CPT/HCPCS: 80061; 83036 ==

== ENCOUNTER 2022-05-23 18:33 | Emergency (ER) | payer MEDICAID, SELFPAY ==
[2022-05-23 18:36] VITALS: BP 134/88; PULSE 95; RESP 16; TEMP 36.7; O2SAT 94; BMI 33.5
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
[2022-05-23] MEDS: lidocaine 2% viscous 15 ML, aluminum-mag hydrox-simethicon 30 ML, sucralfate oral liq 1 GM PO (20:13)
[2022-05-23 20:28] LABS: Add Urine Microscopic? NO; Charge for UA Resulting for Rev
[2022-05-23 20:30] LABS: Bilirubin Urine Neg (Negative); Blood Urine Neg (Negative); Glucose Urine UA Norm (Normal); Ketones Urine Negative (Negative); Leukocyte Esterase Urine Negative (Negative); Nitrate Urine Negative (Negative); Protein Urine Neg (Negative); Specific Gravity, Urine 1.015 (1.005-1.030); Urine Appearance Clear (CLEAR); Urine Color Yellow (Yellow); Urobilinogen Urine 1 mg/dL (Negative); pH Urine 6 (5-7)
[2022-05-23 20:38] LABS: Basophils # 0.1 10^3/uL (0.0-0.1); Basophils % 0.9 %; Eosinophils # 0.2 10^3/uL (0.0-0.8); Eosinophils % 2.2 %; Hematocrit 45.1 % (42.0-52.0); Hemoglobin 15.3 g/dL (11.7-16.6); Lymphocytes # 2.3 10^3/uL (0.8-4.8); Lymphocytes % 32.3 %; Mean Corpuscular HGB Conc 33.9 g/dL (30.0-36.0); Mean Corpuscular Hemoglobin 29.7 pg (28.0-34.0); Mean Corpuscular Volume 87.6 fl (80-94); Mean Platelet Volume 10.6 fL (7.4-10.4); Monocytes # 0.6 10^3/uL (0.2-0.9); Monocytes % 8.5 %; Neutrophils # 3.89 10^3/uL (1.8-7.7); Neutrophils % 55.8 %; Nucleated Red Blood Cells % 0 %; Platelet Count 160 10^3/cmm (130-400); Red Blood Count 5.15 10^6/uL (4.1-5.3); Red Cell Distribution Width 11.7 % (12.1-15.1)
[2022-05-23 20:39] LABS: Amphetamines Screen Urine Negative (Negative); Barbiturates Screen Urine Negative (Negative); Benzodiazepines Screen Urine Negative (Negative); Cocaine Screen Urine Negative (Negative); Opiate Screen Urine Negative (Negative); PCP Screen Urine Negative (Negative); THC Screen Urine Negative (Negative)
[2022-05-23 20:56] LABS: Alanine Aminotransferase 46 U/L (0-41); Albumin Level 4.3 g/dL (3.5-5.2); Alkaline Phosphatase 97 U/L (40-130); Anion Gap 11.7 (5-19); Aspartate Amino Transferase 25 U/L (0-40); Blood Urea Nitrogen 10 mg/dL (6-20); Calcium 9.1 mg/dL (8.5-10.5); Carbon Dioxide 27 mmol/L (22-29); Chloride 101 mmol/L (98-107); Globulin 2.7 g/dL (1.3-4.6); Glomerular Filtration Rate 115.1 mL/min (90-130); Glucose 80 mg/dL (65-115); Osmolality Calculated 280 mOsm/kg (285-295); Potassium 3.7 mmol/L (3.5-5.1); Sodium 136 mmol/L (136-145); Total Bilirubin 0.3 mg/dL (0.15-1.2)
[2022-05-23 21:02] LABS: Acetaminophen < 5.0 ug/mL (10-30); Alcohol Level < 10 mg/dL (0-10); Salicylate < 0.3 mg/dL (3-10)
[2022-05-23] MEDS: pantoprazole DR 40 mg Tablet PO (22:05)
[2022-05-23] MEDS: mirtazapine 30 mg Tablet PO (22:06)
[2022-05-23] MEDS: ziprasidone hcl 20 mg Capsule 60 MG PO (22:06)
[2022-05-23] MEDS: quetiapine 100 mg Tablet 200 MG PO (22:06)
[2022-05-23] MEDS: buPROPion SR (12 HR) 150 mg Tablet 300 MG PO (22:06)
[2022-05-23 23:50] VITALS: PULSE 80; RESP 16; O2SAT 98
== END 2022-05-23 23:50 | disposition home or self-care (01) ==
PROVIDERS: Emergency Provider Emergency Medicine; PCP Internal Medicine
DX: F33.1 Major depressive disorder, recurrent, moderate (principal); F84.0 Autistic disorder
CPT/HCPCS: 80053; 80306; 80307; 81003; 85025; 99283

== ENCOUNTER 2022-06-06 22:56 | Emergency (ER) | payer MEDICAID, SELFPAY ==
[2022-06-06 22:59] VITALS: BP 143/95; PULSE 88; RESP 16; TEMP 36.7; O2SAT 94; BMI 33.5
--- NOTE | 2022-06-06 23:16 | ED.C_ITS ---
Documented by User: TRISHA Villasenor 06/07/22 00:38 HPI - Psych General: Chief Complaint: Psychiatric Symptoms Stated Complaint: SI Time Seen by Provider: 06/06/22 22:59 History of Present Illness: 27-year-old male patient comes into the ER tonight for concerns of anger issues. Patient got into an argument with the staff at his assisted living facility. Patient resides at [facility]. Patient thinks he needs to be admitted to have his medications adjusted so he can control his anger more. Patient appears nontoxic. Patient appears no acute distress. Patient states he do not feel safe at his care facility at this time. Patient states that he might hurt himself or someone else. Patient is calm and watching videos on his phone with no signs of distress or anger. Associated symptoms: Reports homicidal ideation and suicidal ideation; Deny auditory hallucinations, visual hallucinations or delusions Review of Systems General: Reports: 10 or more systems reviewed and unremarkable except in HPI and below Card: Denies: chest pain Resp: Denies: dyspnea GI: Denies: nausea or vomiting : Denies: difficulty urinating Neuro: Denies: headache(s) Psych: Reports: mood swings, irritability, suicidal ideation and homicidal ideation; Denies: visual hallucinations or auditory hallucinations PFSH ED PFSH: Medical History Autistic disorder Disruptive mood dysregulation disorder Major depressive disorder, recurrent, moderate Psychiatric care Surgical History H/O esophagogastroduodenoscopy (05/30/21) History of foot surgery right- 2020 Social History Smoking and tobacco status: never smoked Physical Exam Const: COMMON NORMALS: alert GENERAL APPEARANCE: well kempt HENMT: COMMON NORMALS: normocephalic HEAD & SCALP: normocephalic THROAT: posterior oropharynx normal Neck/C-Spine: COMMON NORMALS: full ROM Resp: COMMON NORMALS: normal respiratory effort and clear to auscultation bilaterally AUSCULTATION: clear to auscultation bilaterally Cardio: COMMON NORMALS: regular rate and regular rhythm RATE: regular rate RHYTHM: regular rhythm Back/Pelvis: COMMON NORMALS: thoracic and lumbar spine normal to inspection Extremity: COMMON NORMALS: full ROM Neuro: SENSORIUM/ORIENTATION: Yes alert Psych: COMMON NORMALS: Normal thought process present, cooperative and speech normal APPEARANCE: Yes well kempt ATTITUDE: Yes calm and Yes Guarded attititude/behavior present ACTIVITY/MOTOR BEHAVIOR: Yes Avoids eye contact (attititude/behavior) SPEECH: Yes normal speech MOOD & AFFECT: Yes Flat affect present THOUGHT PROCESS: Normal thought process present THOUGHT CONTENT: No delusions ATTENTION/CONCENTRATION: Yes attention grossly intact and Yes concentration grossly intact MEMORY/COGNITION: Yes memory grossly intact and Yes cognition grossly intact INSIGHT: Fair insight present (Psych) JUDGEMENT: Fair judgement present (Psych) Course Vital Signs: Vital signs: Vital Signs Temperature 98.1 F 06/06/22 22:59 Pulse Rate 88 06/06/22 22:59 Respiratory Rate 16 06/06/22 22:59 Blood Pressure 143/95 06/06/22 22:59 Pulse Oximetry 94 06/06/22 22:59 Oxygen Delivery Me thod Room Air 06/06/22 22:59 MDM - Psych Medical Decision Making 27-year-old male patient comes in today for complaints of increased anger and feeling like he can hurt himself or others. Patient is calm and responds appropriately to questions in the emergency department. Respirations are even. Lungs are clear to auscultation. No edema is noted in the extremities. Differential diagnosis includes but not limited to includes anger reaction, suicidality, homicidality, schizotypal disorder. Laboratory values were unremarkable. Patient was calm and cooperative throughout the ER stay. I reviewed the case with Dr. Howell, on-call psychiatrist, he is very familiar with this patient and feels comfortable with him being return to his facility and to follow-up with outpatient resources for medication adjustments. Patient reported understanding of care plan and need for follow-up. Lab Data 06/06/22 23:51 06/06/22 23:51 Laboratory Results WBC 7.1 10^3/uL (4.0-10.0) 06/06/22 23:51 RBC 5.08 10^6/uL (4.1-5.3) 06/06/22 23:51 Hgb 15.4 g/dL (11.7-16.6) 06/06/22 23:51 Hct 44.4 % (42.0-52.0) 06/06/22 23:51 MCV 87.4 fl (80-94) 06/06/22 23:51 MCH 30.3 pg (28.0-34.0) 06/06/22 23:51 MCHC 34.7 g/dL (30.0-36.0) 06/06/22 23:51 RDW 11.6 % (12.1-15.1) L 06/06/22 23:51 Plt Count 152 10^3/cmm (130-400) 06/06/22 23:51 MPV 9.9 fL (7.4-10.4) 06/06/22 23:51 Neut % (Auto) 53.3 % 06/06/22 23:51 Lymph % (Auto) 35.6 % 06/06/22 23:51 [place] % (Auto) 7.8 % 06/06/22 23:51 Eos % (Auto) 2.5 % 06/06/22 23:51 Baso % (Auto) 0.7 % 06/06/22 23:51 Neut # (Auto) 3.76 10^3/uL (1.8-7.7) 06/06/22 23:51 Lymph # (Auto) 2.5 10^3/uL (0.8-4.8) 06/06/22 23:51 [place] # (Auto) 0.6 10^3/uL (0.2-0.9) 06/06/22 23:51 Eos # (Auto) 0.2 10^3/uL (0.0-0.8) 06/06/22 23:51 Baso # (Auto) 0.1 10^3/uL (0.0-0.1) 06/06/22 23:51 Nucleated RBC % (auto) 0 % 06/06/22 23:51 Nucleated RBCs # 0.0 /100WBC 06/06/22 23:51 Sodium 137 mmol/L (136-145) 06/06/22 23:51 Potassium 3.7 mmol/L (3.5-5.1) 06/06/22 23:51 Chloride 101 mmol/L (98-107) 06/06/22 23:51 Carbon Dioxide 26 mmol/L (22-29) 06/06/22 23:51 Anion Gap 13.7 (5-19) 06/06/22 23:51 BUN 11 mg/dL (6-20) 06/06/22 23:51 Creatinine 1.0 mg/dL (0.7-1.2) 06/06/22 23:51 GFR Calculation 89.0 mL/min (90-130) L 06/06/22 23:51 Glucose 86 mg/dL (65-115) 06/06/22 23:51 Calculated Osmolality 283 mOsm/kg (285-295) L 06/06/22 23:51 Calcium 9.1 mg/dL (8.5-10.5) 06/06/22 23:51 Total Bilirubin 0.5 mg/dL (0.15-1.2) 06/06/22 23:51 AST 20 U/L (0-40) 06/06/22 23:51 ALT 40 U/L (0-41) 06/06/22 23:51 Alkaline Phosphatase 78 U/L (40-130) 06/06/22 23:51 Total Protein 6.6 g/dL (6.6-8.7) 06/06/22 23:51 Albumin 3.8 g/dL (3.5-5.2) 06/06/22 23:51 Globulin 2.8 g/dL (1.3-4.6) 06/06/22 23:51 TSH 1.25 uIU/mL (0.27-4.20) 06/06/22 23:51 Salicylates < 0.3 mg/dL (3-10) L 06/06/22 23:51 Acetaminophen < 5.0 ug/mL (10-30) L 06/06/22 23:51 Ethyl Alcohol < 10 mg/dL (0-10) 06/06/22 23:51 Discharge Plan Discharge Patient Disposition: Home Clinical Impression: Anger reaction, Autistic disorder Condition: Stable Prescriptions: No Action acetaminophen [Tylenol Extra Strength] 500 mg tablet 500 mg PO TID PRN (Reason: pain) mirtazapine 45 mg tablet 45 mg PO .HS Qty: 30 1RF bupropion HCl 150 mg tablet extended release 24 hr 150 mg PO DAILY@09 Qty: 30 1RF ziprasidone HCl [Geodon] 60 mg capsule 60 mg PO DAILY Qty: 30 2RF Rx Instructions: give with food (meal/snack) quetiapine 200 mg tablet See Rx Instructions .ROUTE .COMPLEX Qty: 30 1RF Dose Instruction: TAKE ONE TABLET BY MOUTH AT BEDTIME Rx Instructions: TAKE ONE TABLET BY MOUTH AT BEDTIME bupropion HCl 300 mg tablet extended release 24 hr See Rx Instructions .ROUTE .COMPLEX Qty: 30 1RF Dose Instruction: TAKE ONE TABLET BY MOUTH EVERY DAY Rx Instructions: TAKE ONE TABLET BY MOUTH EVERY DAY omeprazole 40 mg Capsule,Delayed Release(Dr/Ec) 40 mg PO BID@09,21 Qty: 60 0RF Clear Eyes Complete 0.025-0.2-0.5 % Drops 1 drp OPHTHALMIC (EYE) QID PRN (Reason: Allergy Symptoms) metoclopramide HCl [Reglan] 10 mg tablet 10 mg PO Q6H PRN (Reason: nausea and vomiting) Qty: 20 0RF loratadine [Claritin] 10 mg Tablet 10 mg PO DAILY PRN (Reason: Allergy Symptoms) multivitamin with folic acid [Daily-Shabbir (with folic acid)] 400 mcg tablet 1 tab PO DAILY@21 calcium carbonate 500 mg calcium (1,250 mg) Tablet,Chewable 500 mg PO Q4H PRN (Reason: Stomach Upset) Discharge Orders: Discharge ED (Routine); Ordered 06/07/22 Ordered By: Carlos Morton Referrals: Kenneth Bravo DO [Primary Care Provider] - Patient Instructions: Mood Disorders (ED) Activity Restrictions/Additional Instructions: Home and follow-up with outpatient services. Continue with routine medications as directed. Return to ER as needed. Coding Level of Care Code ED Computer Numerical Control Grinder for Chg Fwd Documented by User: Milo Locke DO 06/07/22 00:53 HPI - Psych General: Chief Complaint: Psychiatric Symptoms Stated Complaint: SI Time Seen by Provider: 06/06/22 22:59 PFSH ED PFSH: Medical History Autistic disorder Disruptive mood dysregulation disorder Major depressive disorder, recurrent, moderate Psychiatric care Surgical History H/O esophagogastroduodenoscopy (05/30/21) History of foot surgery right- 2020 Social History Smoking and tobacco status: never smoked Course Vital Signs: Vital signs: Vital Signs Temperature 98.1 F 06/06/22 22:59 Pulse Rate 88 06/06/22 22:59 Respiratory Rate 16 06/06/22 22:59 Blood Pressure 143/95 06/06/22 22:59 Pulse Oximetry 94 06/06/22 22:59 Oxygen Delivery Me thod Room Air 06/06/22 22:59 MDM - Psych Medical Decision Making 27-year-old male patient comes in today for complaints of increased anger and feeling like he can hurt himself or others. Patient is calm and responds appropriately to questions in the emergency department. Respirations are even. Lungs are clear to auscultation. No edema is noted in the extremities. Differential diagnosis includes but not limited to includes anger reaction, suicidality, homicidality, schizotypal disorder. Laboratory values were unremarkable. Patient was calm and cooperative throughout the ER stay. I revie wed the case with Dr. Howell, on-call psychiatrist, he is very familiar with this patient and feels comfortable with him being return to his facility and to follow-up with outpatient resources for medication adjustments. Patient reported understanding of care plan and need for follow-up. This patient was originally seen by RTISHA Melton.? I agree with his history, evaluation, and treatment. Lab Data 06/06/22 23:51 06/06/22 23:51 Laboratory Results WBC 7.1 10^3/uL (4.0-10.0) 06/06/22 23:51 RBC 5.08 10^6/uL (4.1-5.3) 06/06/22 23:51 Hgb 15.4 g/dL (11.7-16.6) 06/06/22 23:51 Hct 44.4 % (42.0-52.0) 06/06/22 23:51 MCV 87.4 fl (80-94) 06/06/22 23:51 MCH 30.3 pg (28.0-34.0) 04/29/23 23:51 MCHC 34.7 g/dL (30.0-36.0) 06/06/22 23:51 RDW 11.6 % (12.1-15.1) L 06/06/22 23:51 Plt Count 152 10^3/cmm (130-400) 06/06/22 23:51 MPV 9.9 fL (7.4-10.4) 06/06/22 23:51 Neut % (Auto) 53.3 % 06/06/22 23:51 Lymph % (Auto) 35.6 % 06/06/22 23:51 [place] % (Auto) 7.8 % 06/06/22 23:51 Eos % (Auto) 2.5 % 06/06/22 23:51 Baso % (Auto) 0.7 % 06/06/22 23:51 Neut # (Auto) 3.76 10^3/uL (1.8-7.7) 06/06/22 23:51 Lymph # (Auto) 2.5 10^3/uL (0.8-4.8) 06/06/22 23:51 [place] # (Auto) 0.6 10^3/uL (0.2-0.9) 06/06/22 23:51 Eos # (Auto) 0.2 10^3/uL (0.0-0.8) 06/06/22 23:51 Baso # (Auto) 0.1 10^3/uL (0.0-0.1) 06/06/22 23:51 Nucleated RBC % (auto) 0 % 06/06/22 23:51 Nucleated RBCs # 0.0 /100WBC 06/06/22 23:51 Sodium 137 mmol/L (136-145) 06/06/22 23:51 Potassium 3.7 mmol/L (3.5-5.1) 06/06/22 23:51 Chloride 101 mmol/L (98-107) 06/06/22 23:51 Carbon Dioxide 26 mmol/L (22-29) 06/06/22 23:51 Anion Gap 13.7 (5-19) 06/06/22 23:51 BUN 11 mg/dL (6-20) 06/06/22 23:51 Creatinine 1.0 mg/dL (0.7-1.2) 06/06/22 23:51 GFR Calculation 89.0 mL/min (90-130) L 06/06/22 23:51 Glucose 86 mg/dL (65-115) 06/06/22 23:51 Calculated Osmolality 283 mOsm/kg (285-295) L 06/06/22 23:51 Calcium 9.1 mg/dL (8.5-10.5) 06/06/22 23:51 Total Bilirubin 0.5 mg/dL (0.15-1.2) 06/06/22 23:51 AST 20 U/L (0-40) 06/06/22 23:51 ALT 40 U/L (0-41) 06/06/22 23:51 Alkaline Phosphatase 78 U/L (40-130) 06/06/22 23:51 Total Protein 6.6 g/dL (6.6-8.7) 06/06/22 23:51 Albumin 3.8 g/dL (3.5-5.2) 06/06/22 23:51 Globulin 2.8 g/dL (1.3-4.6) 06/06/22 23:51 TSH 1.25 uIU/mL (0.27-4.20) 06/06/22 23:51 Salicylates < 0.3 mg/dL (3-10) L 06/06/22 23:51 Acetaminophen < 5.0 ug/mL (10-30) L 06/06/22 23:51 Ethyl Alcohol < 10 mg/dL (0-10) 06/06/22 23:51 Discharge Plan Discharge Patient Disposition: Home Clinical Impression: Anger reaction, Autistic disorder Condition: Stable Prescriptions: No Action acetaminophen [Tylenol Extra Strength] 500 mg tablet 500 mg PO TID PRN (Reason: pain) mirtazapine 45 mg tablet 45 mg PO .HS Qty: 30 1RF bupropion HCl 150 mg tablet extended release 24 hr 150 mg PO DAILY@09 Qty: 30 1RF ziprasidone HCl [Geodon] 60 mg capsule 60 mg PO DAILY Qty: 30 2RF Rx Instructions: give with food (meal/snack) quetiapine 200 mg tablet See Rx Instructions .ROUTE .COMPLEX Qty: 30 1RF Dose Instruction: TAKE ONE TABLET BY MOUTH AT BEDTIME Rx Instructions: TAKE ONE TABLET BY MOUTH AT BEDTIME bupropion HCl 300 mg tablet extended release 24 hr See Rx Instructions .ROUTE .COMPLEX Qty: 30 1RF Dose Instruction: TAKE ONE TABLET BY MOUTH EVERY DAY Rx Instructions: TAKE ONE TABLET BY MOUTH EVERY DAY omeprazole 40 mg Capsule,Delayed Release(Dr/Ec) 40 mg PO BID@09,21 Qty: 60 0RF Clear Eyes Complete 0.025-0.2-0.5 % Drops 1 drp OPHTHALMIC (EYE) QID PRN (Reason: Allergy Symptoms) metoclopramide HCl [Reglan] 10 mg tablet 10 mg PO Q6H PRN (Reason: nausea and vomiting) Qty: 20 0RF loratadine [Claritin] 10 mg Tablet 10 mg PO DAILY PRN (Reason: Allergy Symptoms) multivitamin with folic acid [Daily-Shabbir (with folic acid)] 400 mcg tablet 1 tab PO DAILY@21 calcium carbonate 500 mg calcium (1,250 mg) Tablet,Chewable 500 mg PO Q4H PRN (Reason: Stomach Upset) Discharge Orders: Discharge ED (Routine); Ordered 06/07/22 Ordered By: Carlos Morton Referrals: Kenneth Bravo DO [Primary Care Provider] - Patient Instructions: Mood Disorders (ED) Activity Restrictions/Additional Instructions: Home and follow-up with outpatient services. Continue with routine medications as directed. Return to ER as needed. Coding Level of Care Code ED Computer Numerical Control Grinder for Alva Che
[2022-06-06] MEDS: quetiapine 100 mg Tablet 200 MG PO (23:48)
[2022-06-06] MEDS: mirtazapine 15 mg Tablet 45 MG PO (23:48)
[2022-06-06] MEDS: pantoprazole DR 40 mg Tablet PO (23:49)
[2022-06-06] MEDS: ziprasidone hcl 20 mg Capsule 60 MG PO (23:49)
[2022-06-07] LABS: Basophils # 0.1 10^3/uL (0.0-0.1); Basophils % 0.7 %; Eosinophils # 0.2 10^3/uL (0.0-0.8); Eosinophils % 2.5 %; Hematocrit 44.4 % (42.0-52.0); Hemoglobin 15.4 g/dL (11.7-16.6); Lymphocytes # 2.5 10^3/uL (0.8-4.8); Lymphocytes % 35.6 %; Mean Corpuscular HGB Conc 34.7 g/dL (30.0-36.0); Mean Corpuscular Hemoglobin 30.3 pg (28.0-34.0); Mean Corpuscular Volume 87.4 fl (80-94); Mean Platelet Volume 9.9 fL (7.4-10.4); Monocytes # 0.6 10^3/uL (0.2-0.9); Monocytes % 7.8 %; Neutrophils # 3.76 10^3/uL (1.8-7.7); Neutrophils % 53.3 %; Nucleated Red Blood Cells % 0 %; Platelet Count 152 10^3/cmm (130-400); Red Blood Count 5.08 10^6/uL (4.1-5.3); Red Cell Distribution Width 11.6 % (12.1-15.1); White Blood Count 7.1 10^3/uL (4.0-10.0)
[2022-06-07 00:27] LABS: Alanine Aminotransferase 40 U/L (0-41); Albumin Level 3.8 g/dL (3.5-5.2); Alkaline Phosphatase 78 U/L (40-130); Anion Gap 13.7 (5-19); Aspartate Amino Transferase 20 U/L (0-40); Blood Urea Nitrogen 11 mg/dL (6-20); Calcium 9.1 mg/dL (8.5-10.5); Carbon Dioxide 26 mmol/L (22-29); Chloride 101 mmol/L (98-107); Globulin 2.8 g/dL (1.3-4.6); Glucose 86 mg/dL (65-115); Osmolality Calculated 283 mOsm/kg (285-295); Potassium 3.7 mmol/L (3.5-5.1); Sodium 137 mmol/L (136-145); Thyroid Stimulating Hormone 1.25 uIU/mL (0.27-4.20); Total Bilirubin 0.5 mg/dL (0.15-1.2); Total Protein 6.6 g/dL (6.6-8.7)
[2022-06-07 00:29] LABS: Acetaminophen < 5.0 ug/mL (10-30); Alcohol Level < 10 mg/dL (0-10); Salicylate < 0.3 mg/dL (3-10)
== END 2022-06-07 00:56 | disposition home or self-care (01) ==
PROVIDERS: Emergency Provider Nurse Practitioner Family; PCP Internal Medicine
DX: R45.4 Irritability and anger (principal); F84.0 Autistic disorder
CPT/HCPCS: 36415; 80053; 80307; 84443; 85025; 99283

== ENCOUNTER 2022-06-08 17:31 | Emergency (ER) | payer MEDICAID, SELFPAY ==
[2022-06-08 17:34] VITALS: BP 126/87; PULSE 97; RESP 16; TEMP 36.9; O2SAT 96; BMI 32.3
--- NOTE | 2022-06-08 17:50 | W.ED.PSYCHS ---
HPI - Psych General: Chief Complaint: Psychiatric Symptoms Stated Complaint: SI Time Seen by Provider: 06/08/22 17:39 Source: patient Mode of arrival: ambulatory Limitations: no limitations History of Present Illness: 27-year-old male who is very well-known to the ER he is here from a prison he had got angry there and smashed a window and grabbed a spoon and he states he had tried to harm himself with a spoon he does have a very small abrasion to his left wrist he states that to me he was just angry he denies being suicidal or homicidal he is calm and cooperative currently denies any worsening improving factors. Associated symptoms: Reports depression Review of Systems Const: Denies: fever(s), chills, body aches or change in appetite ENMT: Denies: throat pain or dental pain Card: Denies: chest pain Resp: Denies: dyspnea GI: Denies: abdominal pain, nausea, vomiting or diarrhea Musc: Denies: neck pain or back pain Skin/Breast: Denies: rash Neuro: Denies: headache(s) Psych: Reports: depression and mood swings PFSH ED PFSH: Medical History Autistic disorder Disruptive mood dysregulation disorder Major depressive disorder, recurrent, moderate Psychiatric care Surgical History H/O esophagogastroduodenoscopy (05/30/21) History of foot surgery right- 2020 Social History Smoking and tobacco status: never smoked Physical Exam Const: COMMON NORMALS: no acute distress and patient oriented x3 HENMT: COMMON NORMALS: atraumatic HEAD & SCALP: atraumatic Eye: COMMON NORMALS: conjunctivae normal CONJUNCTIVA: Yes conjunctivae normal Chest: COMMONS NORMALS: normal inspection of the chest Resp: COMMON NORMALS: normal respiratory effort Cardio: COMMON NORMALS: regular rate and regular rhythm RATE: regular rate RHYTHM: regular rhythm Extremity: NARRATIVE EXTREMITY EXAM: Small abrasion to left wrist Neuro: COMMON NORMALS: patient oriented x3 Psych: COMMON NORMALS: mental status grossly normal THOUGHT CONTENT: No Suicidality present and No Homicidality present Skin: COMMON NORMALS: no rashes or lesions noted GENERAL SKIN EXAM: no rashes or lesions noted Course Vital Signs: Vital signs: Vital Signs Temperature 98.5 F 06/08/22 17:34 Pulse Rate 97 06/08/22 17:34 Respiratory Rate 16 06/08/22 17:34 Blood Pressure 126/87 06/08/22 17:34 Pulse Oximetry 96 06/08/22 17:34 Oxygen Delivery Me thod Room Air 06/08/22 17:34 MDM - Psych Medical Decision Making Patient presents here with an anger outburst he had tried to cut himself with a spoon he denies being suicidal or homicidal currently an outpatient very well I did speak to Dr. Howell of psychiatry who knows him well he does not feel like he is a threat to himself and does not require admission he is stable for discharge at this time. Discharge Plan Discharge Patient Disposition: Home Clinical Impression: Depression, Anger reaction Condition: Stable Prescriptions: No Action acetaminophen [Tylenol Extra Strength] 500 mg tablet 500 mg PO TID PRN (Reason: pain) mirtazapine 45 mg tablet 45 mg PO .HS Qty: 30 1RF bupropion HCl 150 mg tablet extended release 24 hr 150 mg PO DAILY@09 Qty: 30 1RF ziprasidone HCl [Geodon] 60 mg capsule 60 mg PO DAILY Qty: 30 2RF Rx Instructions: give with food (meal/snack) quetiapine 200 mg tablet See Rx Instructions .ROUTE .COMPLEX Qty: 30 1RF Dose Instruction: TAKE ONE TABLET BY MOUTH AT BEDTIME Rx Instructions: TAKE ONE TABLET BY MOUTH AT BEDTIME bupropion HCl 300 mg tablet extended release 24 hr See Rx Instructions .ROUTE .COMPLEX Qty: 30 1RF Dose Instruction: TAKE ONE TABLET BY MOUTH EVERY DAY Rx Instructions: TAKE ONE TABLET BY MOUTH EVERY DAY omeprazole 40 mg Capsule,Delayed Release(Dr/Ec) 40 mg PO BID@, Qty: 60 0RF Clear Eyes Complete 0.025-0.2-0.5 % Drops 1 drp OPHTHALMIC (EYE) QID PRN (Reason: Allergy Symptoms) metoclopramide HCl [Reglan] 10 mg tablet 10 mg PO Q6H PRN (Reason: nausea and vomiting) Qty: 20 0RF loratadine [Claritin] 10 mg Tablet 10 mg PO DAILY PRN (Reason: Allergy Symptoms) multivitamin with folic acid [Daily-Shabbir (with folic acid)] 400 mcg tablet 1 tab PO DAILY@21 calcium carbonate 500 mg calcium (1,250 mg) Tablet,Chewable 500 mg PO Q4H PRN (Reason: Stomach Upset) Discharge Orders: Discharge ED (Routine); Ordered 06/08/22 Ordered By: Aga Berry Referrals: Kenneth Bravo DO [Primary Care Provider] - Discharge Diet: Advance as tolerated Discharge Activity: Resume usual activity Patient Instructions: Depression (ED) Coding Level of Care Code ED Area Director Of Home Health Sales for [facility]
== END 2022-06-08 18:10 | disposition home or self-care (01) ==
PROVIDERS: Emergency Provider Emergency Medicine; PCP Internal Medicine
DX: F32.A Depression, unspecified (principal); R45.4 Irritability and anger; F84.0 Autistic disorder
CPT/HCPCS: 99285

== ENCOUNTER 2022-06-16 18:53 | Emergency (ER) | payer MEDICAID, SELFPAY ==
[2022-06-16 18:57] VITALS: BP 144/76; PULSE 91; RESP 17; TEMP 36.7; O2SAT 98
--- NOTE | 2022-06-16 19:03 | W.ED.SKABFB ---
HPI - Skin/Abscess/Foreign Bdy General: Chief complaint: Skin/Abscess/Foreign Body Stated complaint: spot on rectum Time Seen by Provider: 06/16/22 19:02 History of Present Illness: 27-year-old male patient comes in today with complaints of rectal discomfort. Patient reports feels like a pin when he sits down. Patient appears nontoxic. Patient denies any constipation. Patient has a history of autism spectrum disorder and mental health issues. Patient resides at an assisted living facility. Associated symptoms: Deny fever(s) or vomiting Review of Systems General: Reports: 10 or more systems reviewed and unremarkable except in HPI and below Const: Denies: fever(s) Resp: Denies: dyspnea GI: Reports: rectal pain; Denies: vomiting or constipation PFSH ED PFSH: Medical History Autistic disorder Disruptive mood dysregulation disorder Major depressive disorder, recurrent, moderate Psychiatric care Surgical History H/O esophagogastroduodenoscopy (05/30/21) History of foot surgery right- 2020 Social History Smoking and tobacco status: never smoked Physical Exam Const: COMMON NORMALS: alert HENMT: COMMON NORMALS: normocephalic HEAD & SCALP: normocephalic Neck/C-Spine: GENERAL: Yes normal visual inspection Resp: COMMON NORMALS: No use of accessory muscles Cardio: COMMON NORMALS: regular rate RATE: regular rate GI: RECTAL EXAM: Yes normal sphincter tone and Yes hemorrhoids Extremity: COMMON NORMALS: normal to inspection Neuro: SENSORIUM/ORIENTATION: Yes alert Skin: COMMON NORMALS: no rashes or lesions noted GENERAL SKIN EXAM: no rashes or lesions noted Course Vital Signs: Vital signs: Vital Signs Temperature 98.1 F 06/16/22 18:57 Pulse Rate 91 06/16/22 18:57 Respiratory Rate 17 06/16/22 18:57 Blood Pressure 144/76 06/16/22 18:57 Pulse Oximetry 98 06/16/22 18:57 Oxygen Delivery Me thod Room Air 06/16/22 18:57 MDM - Skin/Abscess/Foreign Bdy Medicial Decision Making 19-year-old male patient comes in today with complaints of rectal pain. On exam patient has 2 hemorrhoids noted externally. Mild tenderness to touch. No obvious redness or induration to the surrounding tissue. Reviewed exam with patient with recommendations for treatment and follow-up. Recommended swtn-zpt-nugnuoc hemorrhoid cream with follow-up with primary care. Patient reported understanding and agreed to plan. Differential diagnoses included anal fissure, hemorrhoid, abscess. Discharge Plan Discharge Patient Disposition: Home Clinical Impression: Hemorrhoid Qualifiers: Hemorrhoid type: unspecified Qualified Code(s): K64.9 - Unspecified hemorrhoids Condition: Stable Prescriptions: New zhweqpqlg-oqyycnqw-eqcdh-w.pet 0.25-1 % cream 1 applic [place] QID PRN (Reason: rectal discomfort) Qty: 51 0RF No Action acetaminophen [Tylenol Extra Strength] 500 mg tablet 500 mg PO TID PRN (Reason: pain) mirtazapine 45 mg tablet 45 mg PO .HS Qty: 30 1RF bupropion HCl 150 mg tablet extended release 24 hr 150 mg PO DAILY@09 Qty: 30 1RF ziprasidone HCl [Geodon] 60 mg capsule 60 mg PO DAILY Qty: 30 2RF Rx Instructions: give with food (meal/snack) quetiapine 200 mg tablet See Rx Instructions .ROUTE .COMPLEX Qty: 30 1RF Dose Instruction: TAKE ONE TABLET BY MOUTH AT BEDTIME Rx Instructions: TAKE ONE TABLET BY MOUTH AT BEDTIME bupropion HCl 300 mg tablet extended release 24 hr See Rx Instructions .ROUTE .COMPLEX Qty: 30 1RF Dose Instruction: TAKE ONE TABLET BY MOUTH EVERY DAY Rx Instructions: TAKE ONE TABLET BY MOUTH EVERY DAY omeprazole 40 mg Capsule,Delayed Release(Dr/Ec) 40 mg PO BID@09,21 Qty: 60 0RF Clear Eyes Complete 0.025-0.2-0.5 % Drops 1 drp OPHTHALMIC (EYE) QID PRN (Reason: Allergy Symptoms) metoclopramide HCl [Reglan] 10 mg tablet 10 mg PO Q6H PRN (Reason: nausea and vomiting) Qty: 20 0RF loratadine [Claritin] 10 mg Tablet 10 mg PO DAILY PRN (Reason: Allergy Symptoms) multivitamin with folic acid [Daily-Shabbir (with folic acid)] 400 mcg tablet 1 tab PO DAILY@21 calcium carbonate 500 mg calcium (1,250 mg) Tablet,Chewable 500 mg PO Q4H PRN (Reason: Stomach Upset) Discharge Orders: Discharge ED (Routine); Ordered 06/16/22 Ordered By: Carlos Morton Referrals: Kenneth Bravo DO [Primary Care Provider] - Discharge Diet: Usual diet Discharge Activity: Increase activity as tolerated Patient Instructions: Hemorrhoids (ED) Activity Restrictions/Additional Instructions: Use rectal cream 3-4 times a day as needed for discomfort. Drink plenty of water. Avoid sitting on the toilet for prolonged periods of time. Avoid heavy straining. Avoid constipation. Follow-up with primary care for further instruction. Return to ED for new concerns. Coding Level of Care Code ED Dam Attendant for [facility]
== END 2022-06-16 19:18 | disposition home or self-care (01) ==
PROVIDERS: Emergency Provider Nurse Practitioner Family; PCP Internal Medicine
DX: K64.9 Unspecified hemorrhoids (principal); F84.0 Autistic disorder
CPT/HCPCS: 99283

== ENCOUNTER 2023-02-14 09:31 | Emergency (ER) | payer MEDICAID, SELFPAY ==
[2023-02-14 09:39] VITALS: BP 122/100; PULSE 95; RESP 18; TEMP 36.7; O2SAT 96; BMI 37.3
--- NOTE | 2023-02-14 10:20 | ED_ITS ---
HPI - Nausea/Vomiting/Diarrhea General: Chief complaint: Nausea/Vomiting/Diarrhea Stated complaint: N/V Time Seen by Provider: 02/14/23 09:38 History of Present Illness: 27-year-old male presents emergency depa rtment with his caregiver. Caregiver states that he missed several doses of his medications last night and when that occurs he has episodes of nausea. The caregiver states they attempted to give his medications this morning and the patient threw them back up at that time. He denies fevers chills or night sweats. He has no other complaints at present. Associated nausea: Yes Associated symtoms: Reports nausea Review of Systems General: Reports: 10 or more systems reviewed and unremarkable except in HPI and below GI: Reports: nausea and vomiting [facility] ED PFSH: Medical History Autistic disorder Disruptive mood dysregulation disorder Major depressive disorder, recurrent, moderate Psychiatric care Surgical History H/O esophagogastroduodenoscopy (05/30/21) History of foot surgery right- 2020 Social History Smoking and tobacco/nicotine status: never used tobacco/nicotine Physical Exam Narrative: EXAM NARRATIVE: Constitutional: the patient appears well nourished and of normal development. Vital signs as documented. No acute distress at present. Alert and oriented-to person, place, time and situation. Head, eyes, ears, nose, mouth, throat: Normocephalic, atraumatic. Pupils-equal, round, reactive to light. No scleral icterus. Normal-appearing external ears. Normal appearing nasal turbinates, no drainage. No obvious oral lesions, posterior oropharynx without erythema or exudates. Neck: Supple, trachea is midline, no lymphadenopathy, no jugular venous distension, thyromegaly, or carotid bruits. Carotid upstrokes are brisk bilaterally. Lungs: clear to auscultation to all lung brennan. Symmetrical rise and fall of chest, no obvious signs of increased work of breathing at present. Cardiac: Regular rate and rhythm, positive S1, S2. No murmurs, rubs or gallops that I can appreciate Abdomen: Soft, non-tender to palpation, normal active bowel sounds to all quadrants. No palpable masses, no organomegaly and abdominal bruits. Extremities: 2+ pulses in the upper extremities that are equal bilaterally, 2+ pulses in the lower extremities that are equal bilaterally. Non-edematous. Moves all extremities well, sensation to all extremities are noted. Skin: Warm, dry, intact. Course Vital Signs: Vital signs: Vital Signs Temperature 98.1 F 02/14/23 09:39 Pulse Rate 95 02/14/23 09:39 Respiratory Rate 18 02/14/23 09:39 Blood Pressure 122/100 02/14/23 09:39 Pulse Oximetry 96 02/14/23 09:39 Oxygen Delivery Me thod Room Air 02/14/23 09:39 MDM - Nausea/Vomiting/Diarrhea Medical Decision Making Physical exam completed and documented, I reviewed the patient's documentation that was provided to me by the home health care respiratory therapist that is accompanying the patient. I will provide him by mouth antiemetics and then have advised the caregiver to repeat the patient's medications that he vomited this morning once they are discharged and back at their home. Medical Records I reviewed the patient's medical records. No radiology studies performed this visit Discharge Plan Discharge Patient Disposition: Home Clinical Impression: Noncompliance with medication regimen Nausea & vomiting Qualifiers: Vomiting type: unspecified Qualified Code(s): R11.2 - Nausea with vomiting, unspecified Condition: Stable Prescriptions: New ondansetron HCl 4 mg tablet 4 mg PO Q8H 3 Days Qty: 9 0RF No Action acetaminophen [Tylenol Extra Strength] 500 mg tablet 500 mg PO TID PRN (Reason: pain) sildenafil 50 mg tablet 100 mg PO TID PRN Rx Instructions: Take 1 tablet by mouth 3 times a day weekly as needed sertraline [Zoloft] 100 mg tablet 200 mg PO DAILY Qty: 60 2RF ziprasidone HCl 60 mg capsule See Rx Instructions .ROUTE .COMPLEX Qty: 30 1RF Dose Instruction: TAKE ONE CAPSULE BY MOUTH EVERY DAY with food Rx Instructions: TAKE ONE CAPSULE BY MOUTH EVERY DAY with food bupropion HCl 150 mg tablet extended release 24 hr 150 mg PO DAILY@09 Qty: 30 1RF bupropion HCl 300 mg tablet extended release 24 hr See Rx Instructions .ROUTE .COMPLEX Qty: 30 1RF Dose Instruction: TAKE ONE TABLET BY MOUTH EVERY DAY Rx Instructions: TAKE ONE TABLET BY MOUTH EVERY DAY quetiapine 200 mg tablet See Rx Instructions .ROUTE .COMPLEX Qty: 30 1RF Dose Instruction: TAKE 1 TABLET BY MOUTH AT BEDTIME Rx Instructions: TAKE 1 TABLET BY MOUTH AT BEDTIME mirtazapine 45 mg tablet See Rx Instructions .ROUTE .COMPLEX Qty: 30 1RF Dose Instruction: TAKE 1 TABLET BY MOUTH AT BEDTIME Rx Instructions: TAKE 1 TABLET BY MOUTH AT BEDTIME omeprazole 40 mg Capsule,Delayed Release(Dr/Ec) 40 mg PO BID@09,21 Qty: 60 0RF Clear Eyes Complete 0.025-0.2-0.5 % Drops 1 drp OPHTHALMIC (EYE) QID PRN (Reason: Allergy Symptoms) gkyemvbrg-rkrlsqvd-vyrdn-w.pet 0.25-1 % cream 1 applic [place] QID PRN (Reason: rectal discomfort) Qty: 51 0RF metoclopramide HCl [Reglan] 10 mg tablet 10 mg PO Q6H PRN (Reason: nausea and vomiting) Qty: 20 0RF loratadine [Claritin] 10 mg Tablet 10 mg PO DAILY PRN (Reason: Allergy Symptoms) multivitamin with folic acid [Daily-Shabbir (with folic acid)] 400 mcg tablet 1 tab PO DAILY@21 calcium carbonate 500 mg calcium (1,250 mg) Tablet,Chewable 500 mg PO Q4H PRN (Reason: Stomach Upset) Discharge Orders: Discharge ED (Routine); Ordered 02/14/23 Ordered By: Wil Jon Referrals: Kenneth Bravo, [Primary Care Provider] - Discharge Diet: Advance as tolerated Discharge Activity: Resume usual activity Patient Instructions: Opioid Safety, Pain Management Activity Restrictions/Additional Instructions: Activity Restrictions/Additional Instructions: Thank you for choosing [facility] for your healthcare needs today. Please realize that you were seen in the Emergency Department and that we are providing you with an emergency medical screening exam and this may not be a complete and all inclusive of all the testing and or medical work-up that you may need to determine your ailment or severity of your illness. It is very important that you follow-up as instructed with your Primary care provider or Specialist for additional evaluation and to discuss your medical treatment plan. You may return to the Emergency Department should you have concerns or if your condition changes or worsens in any way. Readminister patient's a.m. medications that he vomited once you are discharged and back at the care facility. Is important to contact the patient's managing physician to discuss the ER recommendations and follow-up. Patient has been given an antinausea medication that we will assist in the patient keeping his medications down. Coding Level of Care Code ED Mill Representative for [facility] Che
[2023-02-14] MEDS: ondansetron 4 MG Tablet 8 MG PO (10:27)
== END 2023-02-14 10:55 | disposition home or self-care (01) ==
PROVIDERS: Emergency Provider Internal Medicine; PCP Internal Medicine
DX: R11.2 Nausea with vomiting, unspecified (principal); Z91.148 Patient's other noncompliance with medication regimen for other reason; F84.0 Autistic disorder
CPT/HCPCS: 99283; Q0162

== ENCOUNTER 2023-02-16 04:43 | Emergency (ER) | payer MEDICAID, SELFPAY ==
[2023-02-16 04:44] VITALS: BP 143/117; PULSE 131; RESP 16; TEMP 36.6; O2SAT 95; BMI 28.5
--- NOTE | 2023-02-16 04:51 | CTR_ITS ---
PROCEDURE INFORMATION: Exam: CT Abdomen And Pelvis With Contrast Exam date and time: 02/16/2023 5:20 AM Age: 27 years old Clinical indication: Abdominal pain; Periumbilical; Patient HX: Patient says he had pain earlier but it went away and he thinks he is just hungry; Additional info: Abd pain TECHNIQUE: Imaging protocol: Computed tomography of the abdomen and pelvis with contrast. Radiation optimization: All CT scans at this facility use at least one of these dose optimization techniques: automated exposure control; mA and/or kV adjustment per patient size (includes targeted exams where dose is matched to clinical indication); or iterative reconstruction. Contrast material: OMNI 350; Contrast volume: 120 ml; Contrast route: INTRAVENOUS (IV); COMPARISON: CT abdomen pelvis w con* [id number] 05/07/2021 8:56 AM RADIATION DOSE METRICS: Total DLP (mGy-cm): 1503.03 FINDINGS: Liver: Normal. No mass. Gallbladder and bile ducts: Normal. No calcified stones. No ductal dilation. Pancreas: Normal. No ductal dilation. Spleen: 16 cm splenomegaly. Adrenal glands: Normal. No mass. Kidneys and ureters: Normal. No hydronephrosis. Stomach and bowel: Unremarkable. No obstruction. No mucosal thickening. Appendix: No evidence of appendicitis. Intraperitoneal space: Unremarkable. No free air. No significant fluid collection. Vasculature: Unremarkable. No abdominal aortic aneurysm. Lymph nodes: Unremarkable. No enlarged lymph nodes. Urinary bladder: Unremarkable as visualized. Reproductive: Unremarkable as visualized. Bones/joints: Unremarkable. No acute fracture. Soft tissues: Unremarkable. CT/CT abdomen pelvis w con* [id number] IMPRESSION: 1. No acute subdiaphragmatic pathology. 2. Moderate splenomegaly.
[2023-02-16] MEDS: ondansetron 2 mg/ML SDV 2 mL 4 MG IVP (05:10)
[2023-02-16 05:12] LABS: Basophils # 0.1 10^3/uL (0.0-0.1); Basophils % 0.5 %; Eosinophils # 0.1 10^3/uL (0.0-0.8); Eosinophils % 1.1 %; Lymphocytes # 1.7 10^3/uL (0.8-4.8); Lymphocytes % 13.9 %; Mean Corpuscular Hemoglobin 30.2 pg (27-33); Mean Platelet Volume 10.4 fL (7.4-10.4); Monocytes # 0.9 10^3/uL (0.2-0.9); Monocytes % 7.2 %; Neutrophils # 9.37 10^3/uL (1.8-7.7); Neutrophils % 76.8 %; Nucleated Red Blood Cells % 0 %; Platelet Count 207 10^3/cmm (157-399); Red Blood Count 5.62 10^6/uL (3.85-5.65); Red Cell Distribution Width 11.8 % (12.1-15.1); White Blood Count 12.21 10^3/uL (3.29-11.43)
[2023-02-16] MEDS: iohexol 350 mg/mL 500 mL Btl (per mL) IV (05:24)
[2023-02-16 05:38] LABS: Alanine Aminotransferase 54 U/L (0-41); Albumin Level 4.1 g/dL (3.5-5.2); Alkaline Phosphatase 80 U/L (40-130); Aspartate Amino Transferase 29 U/L (0-40); Blood Urea Nitrogen 20 mg/dL (6-20); Calcium 9.6 mg/dL (8.5-10.5); Carbon Dioxide 23 mmol/L (22-29); Chloride 105 mmol/L (98-107); Globulin 3.4 g/dL (1.3-4.6); Glomerular Filtration Rate 79.7 mL/min (90-130); Glucose 131 mg/dL (65-115); Lipase 23 U/L (13-60); Osmolality Calculated 296 mOsm/kg (285-295); Sodium 141 mmol/L (136-145); Total Bilirubin 0.7 mg/dL (0.15-1.2); Total Protein 7.5 g/dL (6.6-8.7)
[2023-02-16 05:40] LABS: Anion Gap 17.1 (5-19); Potassium 4.1 mmol/L (3.5-5.1)
[2023-02-16 05:54] VITALS: PULSE 115; RESP 16; O2SAT 95
--- NOTE | 2023-02-16 05:56 | ED_ITS ---
Documented by User: Wil Jon MD 02/16/23 17:55 HPI - Nausea/Vomiting/Diarrhea 2 General: Chief complaint: Nausea/Vomiting/Diarrhea Stated complaint: N/V Time Seen by Provider: 02/16/23 04:45 History of Present Illness: 27-year-old male presents emergency depa rtment via ambulance secondary to several episodes of nausea vomiting and periumbilical pain that started approximately 3 AM this morning. 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 The patient states that his periumbilical pain is a 4 out of 10 and has had 2 episodes of nausea vomiting that occur after he has coughing episodes. He was seen here in the emergency room on February 14 and received a evaluation for similar complaints of nausea vomiting after coughing. He also states he has episodes of nausea vomiting when he misses his medications. He denies fevers chills or night sweats diarrhea hematemesis hematochezia.. Associated nausea: Yes Associated symtoms: Reports nausea Review of Systems 2 General: Reports: 10 or more systems reviewed and unremarkable except in HPI and below GI: Reports: abdominal pain, nausea and vomiting [facility] ED 2 PFSH: Medical History Autistic disorder Disruptive mood dysregulation disorder Major depressive disorder, recurrent, moderate Psychiatric care Surgical History H/O esophagogastroduodenoscopy (05/30/21) History of foot surgery right- 2020 Social History Smoking and tobacco/nicotine status: never used tobacco/nicotine Physical Exam 2 Narrative: EXAM NARRATIVE: Constitutional: the patient appears well nourished and with normal development. Vital signs reviewed as documented. HENMT: Normocephalic, atraumatic. Extermal ears with normal appearance without drainage. Nose without drainage, normal appearance. Mucus membranes moist. Neck is supple, No jugular venous distension, trachea is midline, no appreciable carotid bruits. No lymphadenopathy. No meningeal signs. Flexion, extension and lateral rotation is without pain. Eyes: Pupils are equal, round, reactive to light and accommodation. No scleral icterus. Extra-ocular movement are intact. Thorax is symmetrical and with equal rise and fall with respirations. Resp: Lungs are clear to auscultation. No wheezes, rales, crackles or ronchi at present. Cardio: Regular rate and rhythm. Positive S1, S2. No appreciable murmurs, rubs or gallops. GI: Abdominal exam reveals normal bowel sounds to all quadrants. No organomegaly. No obvious palpable masses noted. No hepatomegally appreciated. Soft, nontender to palpation. Extremity: Extremities are non-edematous and both femoral and pedal pulses are 2+ and equal bilaterally. Moves all extremities well, sensation in all extremities. Neuro: Alert and oriented x4, person, place, time and situation. Motor strength in the upper and lower extremities are equal and bilateral 5/5. Psych: Cooperative, calm, normal thought process, appropriate judgment. Skin: No lesions, rashes. No gross abnormalities noted. Back: Symmetrical, no obvious deformity, No CVA tenderness Course 2 ED course: Currently a CT scan report is still pending checkout to Dr. Parekh. Current vital signs are stable no acute distress at present. Vital Signs: Vital signs: Vital Signs Temperature 97.9 F 02/16/23 04:44 Pulse Rate 115 H 02/16/23 05:54 Respiratory Rate 16 02/16/23 05:54 Blood Pressure 143/117 02/16/23 04:44 Pulse Oximetry 95 02/16/23 05:54 Oxygen Delivery Me thod Room Air 02/16/23 04:44 MDM - Nausea/Vomiting/Diarrhea Medical Decision Making Physical exam completed document, I will obtain a CBC CMP as well as a CT scan of his abdomen pelvis to rule out acute appendicitis, pancreatitis, cholecystitis. I will obtain influenza a and B screen as well as a COVID screen as he is in a assisted living facility. Will obtain a chest x-ray to evaluate for pneumonia or bronchitis. Medical Records I reviewed the patient's medical records. Lab Data I reviewed the patient's lab results. 02/16/23 05:07 02/16/23 05:07 Radiology Impressions Abdomen/Pelvis CT 02/16/23 04:51 IMPRESSION: 1. No acute subdiaphragmatic pathology. 2. Moderate splenomegaly. Laboratory Results WBC 12.21 10^3/uL (3.29-11.43) H 02/16/23 05:07 RBC 5.62 10^6/uL (3.85-5.65) 02/16/23 05:07 Hgb 17.00 g/dL (11.27-16.99) H 02/16/23 05:07 Hct 50.0 % (37-53) 02/16/23 05:07 MCV 89.0 fl (82-101) 02/16/23 05:07 MCH 30.2 pg (27-33) 02/16/23 05:07 MCHC 34.0 g/dL (30-55) 02/16/23 05:07 RDW 11.8 % (12.1-15.1) L 02/16/23 05:07 Plt Count 207 10^3/cmm (157-399) 02/16/23 05:07 MPV 10.4 fL (7.4-10.4) 02/16/23 05:07 Neut % (Auto) 76.8 % 02/16/23 05:07 Lymph % (Auto) 13.9 % 02/16/23 05:07 [place] % (Auto) 7.2 % 02/16/23 05:07 Eos % (Auto) 1.1 % 02/16/23 05:07 Baso % (Auto) 0.5 % 02/16/23 05:07 Neut # (Auto) 9.37 10^3/uL (1.8-7.7) H 02/16/23 05:07 Lymph # (Auto) 1.7 10^3/uL (0.8-4.8) 02/16/23 05:07 [place] # (Auto) 0.9 10^3/uL (0.2-0.9) 02/16/23 05:07 Eos # (Auto) 0.1 10^3/uL (0.0-0.8) 02/16/23 05:07 Baso # (Auto) 0.1 10^3/uL (0.0-0.1) 02/16/23 05:07 Nucleated RBC % (auto) 0 % 02/16/23 05:07 Nucleated RBCs # 0.0 /100WBC 02/16/23 05:07 Sodium 141 mmol/L (136-145) 02/16/23 05:07 Potassium 4.1 mmol/L (3.5-5.1) 02/16/23 05:07 Chloride 105 mmol/L (98-107) 02/16/23 05:07 Carbon Dioxide 23 mmol/L (22-29) 02/16/23 05:07 Anion Gap 17.1 (5-19) 02/16/23 05:07 BUN 20 mg/dL (6-20) 02/16/23 05:07 Creatinine 1.1 mg/dL (0.7-1.2) 02/16/23 05:07 GFR Calculation 79.7 mL/min (90-130) L 02/16/23 05:07 Glucose 131 mg/dL (65-115) H 02/16/23 05:07 Calculated Osmolality 296 mOsm/kg (285-295) H 02/16/23 05:07 Calcium 9.6 mg/dL (8.5-10.5) 02/16/23 05:07 Total Bilirubin 0.7 mg/dL (0.15-1.2) 02/16/23 05:07 AST 29 U/L (0-40) 02/16/23 05:07 ALT 54 U/L (0-41) H 02/16/23 05:07 Alkaline Phosphatase 80 U/L (40-130) 02/16/23 05:07 Total Protein 7.5 g/dL (6.6-8.7) 02/16/23 05:07 Albumin 4.1 g/dL (3.5-5.2) 02/16/23 05:07 Globulin 3.4 g/dL (1.3-4.6) 02/16/23 05:07 Lipase 23 U/L (13-60) 02/16/23 05:07 Influenza Type A Ag negative (Negative) 02/16/23 05:40 Influenza Type B Ag negative (Negative) 02/16/23 05:40 SARS-CoV-2 Ag (Rapid) negative (Negative) 02/16/23 05:40 All radiology interpretation(s) finalized by discharge Discharge Plan Discharge Patient Disposition: Home Clinical Impression: Gastroenteritis Condition: Stable Prescriptions: New ondansetron HCl 4 mg tablet 4 mg PO Q6H PRN (Reason: nausea and vomiting) Qty: 20 0RF No Action acetaminophen [Tylenol Extra Strength] 500 mg tablet 500 mg PO TID PRN (Reason: pain) sildenafil 50 mg tablet 100 mg PO TID PRN Rx Instructions: Take 1 tablet by mouth 3 times a day weekly as needed sertraline [Zoloft] 100 mg tablet 200 mg PO DAILY Qty: 60 2RF ziprasidone HCl 60 mg capsule See Rx Instructions .ROUTE .COMPLEX Qty: 30 1RF Dose Instruction: TAKE ONE CAPSULE BY MOUTH EVERY DAY with food Rx Instructions: TAKE ONE CAPSULE BY MOUTH EVERY DAY with food bupropion HCl 150 mg tablet extended release 24 hr 150 mg PO DAILY@09 Qty: 30 1RF bupropion HCl 300 mg tablet extended release 24 hr See Rx Instructions .ROUTE .COMPLEX Qty: 30 1RF Dose Instruction: TAKE ONE TABLET BY MOUTH EVERY DAY Rx Instructions: TAKE ONE TABLET BY MOUTH EVERY DAY quetiapine 200 mg tablet See Rx Instructions .ROUTE .COMPLEX Qty: 30 1RF Dose Instruction: TAKE 1 TABLET BY MOUTH AT BEDTIME Rx Instructions: TAKE 1 TABLET BY MOUTH AT BEDTIME mirtazapine 45 mg tablet See Rx Instructions .ROUTE .COMPLEX Qty: 30 1RF Dose Instruction: TAKE 1 TABLET BY MOUTH AT BEDTIME Rx Instructions: TAKE 1 TABLET BY MOUTH AT BEDTIME omeprazole 40 mg Capsule,Delayed Release(Dr/Ec) 40 mg PO BID@ Qty: 60 0RF Clear Eyes Complete 0.025-0.2-0.5 % Drops 1 drp OPHTHALMIC (EYE) QID PRN (Reason: Allergy Symptoms) cnhlijfjg-vlhjtuys-ldgqn-w.pet 0.25-1 % cream 1 applic VA QID PRN (Reason: rectal discomfort) Qty: 51 0RF ondansetron HCl 4 mg tablet 4 mg PO Q8H 3 Days Qty: 9 0RF metoclopramide HCl [Reglan] 10 mg tablet 10 mg PO Q6H PRN (Reason: nausea and vomiting) Qty: 20 0RF loratadine [Claritin] 10 mg Tablet 10 mg PO DAILY PRN (Reason: Allergy Symptoms) multivitamin with folic acid [Daily-Shabbir (with folic acid)] 400 mcg tablet 1 tab PO DAILY@21 calcium carbonate 500 mg calcium (1,250 mg) Tablet,Chewable 500 mg PO Q4H PRN (Reason: Stomach Upset) Discharge Orders: Discharge ED (Routine); Ordered 02/16/23 Ordered By: Gamal Parekh Referrals: Kenneth Bravo DO [Primary Care Provider] - Discharge Diet: Clear Liquid Discharge Activity: Increase activity as tolerated Patient Instructions: Gastroenteritis (ED), Opioid Safety, Pain Management Activity Restrictions/Additional Instructions: Thank you for choosing [facility] for your healthcare needs today. Please realize this is an emergency room and that we are providing you with a medical screening exam and this may not be complete and all inclusive of all the testing and or work up that you may need to determine your ailment or severity of your illness. It is very important that you follow up as instructed or that you return to the Emergency Department should you have concerns or if your condition changes or worsens in any way. Sign Out Sign Out Data: Patient Sign Out occurred on 02/16/23 at 06:57. Patient's care was discussed, and care was transferred from Wil Jon MD to Gamal Parekh DO. 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[employer] Documented by User: Gamal Parekh DO 02/16/23 07:15 HPI - Nausea/Vomiting/Diarrhea 2 General: Chief complaint: Nausea/Vomiting/Diarrhea Stated complaint: N/V Time Seen by Provider: 02/16/23 04:45 [facility] ED 2 PFSH: Medical History Autistic disorder Disruptive mood dysregulation disorder Major depressive disorder, recurrent, moderate Psychiatric care Surgical History H/O esophagogastroduodenoscopy (05/30/21) History of foot surgery right- 2020 Social History Smoking and tobacco/nicotine status: never used tobacco/nicotine Course 2 Vital Signs: Vital signs: Vital Signs Temperature 97.9 F 02/16/23 04:44 Pulse Rate 115 H 02/16/23 05:54 Respiratory Rate 16 02/16/23 05:54 Blood Pressure 143/117 01/09/24 04:44 Pulse Oximetry 95 02/16/23 05:54 Oxygen Delivery Me thod Room Air 02/16/23 04:44 MDM - Nausea/Vomiting/Diarrhea Medical Decision Making Physical exam completed document, I will obtain a CBC CMP as well as a CT scan of his abdomen pelvis to rule out acute appendicitis, pancreatitis, cholecystitis. I will obtain influenza a and B screen as well as a COVID screen as he is in a assisted living facility. Will obtain a chest x-ray to evaluate for pneumonia or bronchitis. Care assumed at change of shift CT unremarkable. Patient states he is feeling better is requesting more to drink. Will discharge patient home clear liquid diet discussed findings with caregiver and the patient. Likely has a gastroenteritis can advance diet as tolerated. Ondansetron as needed. Lab Data 02/16/23 05:07 02/16/23 05:07 Radiology Impressions Abdomen/Pelvis CT 02/16/23 04:51 IMPRESSION: 1. No acute subdiaphragmatic pathology. 2. Moderate splenomegaly. Laboratory Results WBC 12.21 10^3/uL (3.29-11.43) H 02/16/23 05:07 RBC 5.62 10^6/uL (3.85-5.65) 02/16/23 05:07 Hgb 17.00 g/dL (11.27-16.99) H 02/16/23 05:07 Hct 50.0 % (37-53) 02/16/23 05:07 MCV 89.0 fl (82-101) 02/16/23 05:07 MCH 30.2 pg (27-33) 02/16/23 05:07 MCHC 34.0 g/dL (30-55) 02/16/23 05:07 RDW 11.8 % (12.1-15.1) L 02/16/23 05:07 Plt Count 207 10^3/cmm (157-399) 02/16/23 05:07 MPV 10.4 fL (7.4-10.4) 02/16/23 05:07 Neut % (Auto) 76.8 % 02/16/23 05:07 Lymph % (Auto) 13.9 % 02/16/23 05:07 [place] % (Auto) 7.2 % 02/16/23 05:07 Eos % (Auto) 1.1 % 02/16/23 05:07 Baso % (Auto) 0.5 % 02/16/23 05:07 Neut # (Auto) 9.37 10^3/uL (1.8-7.7) H 02/16/23 05:07 Lymph # (Auto) 1.7 10^3/uL (0.8-4.8) 02/16/23 05:07 [place] # (Auto) 0.9 10^3/uL (0.2-0.9) 02/16/23 05:07 Eos # (Auto) 0.1 10^3/uL (0.0-0.8) 02/16/23 05:07 Baso # (Auto) 0.1 10^3/uL (0.0-0.1) 02/16/23 05:07 Nucleated RBC % (auto) 0 % 02/16/23 05:07 Nucleated RBCs # 0.0 /100WBC 02/16/23 05:07 Sodium 141 mmol/L (136-145) 02/16/23 05:07 Potassium 4.1 mmol/L (3.5-5.1) 02/16/23 05:07 Chloride 105 mmol/L (98-107) 02/16/23 05:07 Carbon Dioxide 23 mmol/L (22-29) 02/16/23 05:07 Anion Gap 17.1 (5-19) 02/16/23 05:07 BUN 20 mg/dL (6-20) 02/16/23 05:07 Creatinine 1.1 mg/dL (0.7-1.2) 02/16/23 05:07 GFR Calculation 79.7 mL/min (90-130) L 02/16/23 05:07 Glucose 131 mg/dL (65-115) H 02/16/23 05:07 Calculated Osmolality 296 mOsm/kg (285-295) H 02/16/23 05:07 Calcium 9.6 mg/dL (8.5-10.5) 02/16/23 05:07 Total Bilirubin 0.7 mg/dL (0.15-1.2) 02/16/23 05:07 AST 29 U/L (0-40) 02/16/23 05:07 ALT 54 U/L (0-41) H 02/16/23 05:07 Alkaline Phosphatase 80 U/L (40-130) 02/16/23 05:07 Total Protein 7.5 g/dL (6.6-8.7) 02/16/23 05:07 Albumin 4.1 g/dL (3.5-5.2) 02/16/23 05:07 Globulin 3.4 g/dL (1.3-4.6) 02/16/23 05:07 Lipase 23 U/L (13-60) 02/16/23 05:07 Influenza Type A Ag negative (Negative) 02/16/23 05:40 Influenza Type B Ag negative (Negative) 02/16/23 05:40 SARS-CoV-2 Ag (Rapid) negative (Negative) 02/16/23 05:40 Discharge Plan Discharge Patient Disposition: Home Clinical Impression: Gastroenteritis Condition: Stable Prescriptions: New ondansetron HCl 4 mg tablet 4 mg PO Q6H PRN (Reason: nausea and vomiting) Qty: 20 0RF No Action acetaminophen [Tylenol Extra Strength] 500 mg tablet 500 mg PO TID PRN (Reason: pain) sildenafil 50 mg tablet 100 mg PO TID PRN Rx Instructions: Take 1 tablet by mouth 3 times a day weekly as needed sertraline [Zoloft] 100 mg tablet 200 mg PO DAILY Qty: 60 2RF ziprasidone HCl 60 mg capsule See Rx Instructions .ROUTE .COMPLEX Qty: 30 1RF Dose Instruction: TAKE ONE CAPSULE BY MOUTH EVERY DAY with food Rx Instructions: TAKE ONE CAPSULE BY MOUTH EVERY DAY with food bupropion HCl 150 mg tablet extended release 24 hr 150 mg PO DAILY@09 Qty: 30 1RF bupropion HCl 300 mg tablet extended release 24 hr See Rx Instructions .ROUTE .COMPLEX Qty: 30 1RF Dose Instruction: TAKE ONE TABLET BY MOUTH EVERY DAY Rx Instructions: TAKE ONE TABLET BY MOUTH EVERY DAY quetiapine 200 mg tablet See Rx Instructions .ROUTE .COMPLEX Qty: 30 1RF Dose Instruction: TAKE 1 TABLET BY MOUTH AT BEDTIME Rx Instructions: TAKE 1 TABLET BY MOUTH AT BEDTIME mirtazapine 45 mg tablet See Rx Instructions .ROUTE .COMPLEX Qty: 30 1RF Dose Instruction: TAKE 1 TABLET BY MOUTH AT BEDTIME Rx Instructions: TAKE 1 TABLET BY MOUTH AT BEDTIME omeprazole 40 mg Capsule,Delayed Release(Dr/Ec) 40 mg PO BID@ Qty: 60 0RF Clear Eyes Complete 0.025-0.2-0.5 % Drops 1 drp OPHTHALMIC (EYE) QID PRN (Reason: Allergy Symptoms) ozdjpbhar-tokolbuv-fnsmn-w.pet 0.25-1 % cream 1 applic VA QID PRN (Reason: rectal discomfort) Qty: 51 0RF ondansetron HCl 4 mg tablet 4 mg PO Q8H 3 Days Qty: 9 0RF metoclopramide HCl [Reglan] 10 mg tablet 10 mg PO Q6H PRN (Reason: nausea and vomiting) Qty: 20 0RF loratadine [Claritin] 10 mg Tablet 10 mg PO DAILY PRN (Reason: Allergy Symptoms) multivitamin with folic acid [Daily-Shabbir (with folic acid)] 400 mcg tablet 1 tab PO DAILY@21 calcium carbonate 500 mg calcium (1,250 mg) Tablet,Chewable 500 mg PO Q4H PRN (Reason: Stomach Upset) Discharge Orders: Discharge ED (Routine); Ordered 02/16/23 Ordered By: Gamal Parekh Referrals: Kenneth Bravo DO [Primary Care Provider] - Discharge Diet: Clear Liquid Discharge Activity: Increase activity as tolerated Patient Instructions: Gastroenteritis (ED), Opioid Safety, Pain Management Activity Restrictions/Additional Instructions: Thank you for choosing [facility] for your healthcare needs today. Please realize this is an emergency room and that we are providing you with a medical screening exam and this may not be complete and all inclusive of all the testing and or work up that you may need to determine your ailment or severity of your illness. It is very important that you follow up as instructed or that you return to the Emergency Department should you have concerns or if your condition changes or worsens in any way. Sign Out Sign Out Data: Patient Sign Out occurred on 02/16/23 at 06:57. Patient's care was discussed, and care was transferred from Wil Jon MD to Gamal Parekh DO. 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
[2023-02-16 06:00] LABS: Influenza A by IFA negative (Negative); Influenza B by IFA negative (Negative); SARS Covid-2 Antigen negative (Negative)
== END 2023-02-16 07:18 | disposition home or self-care (01) ==
PROVIDERS: Internal Medicine; Emergency Provider Family Medicine; PCP Internal Medicine
DX: K52.9 Noninfective gastroenteritis and colitis, unspecified (principal); Z11.52 Encounter for screening for COVID-19; F84.0 Autistic disorder
CPT/HCPCS: 74177; 80053; 83690; 85025; 87426; 87804; 96374; 99285; J2405; Q9967

== ENCOUNTER 2023-04-15 19:11 | Emergency (ER) | payer MEDICAID, SELFPAY ==
[2023-04-15 19:13] VITALS: BP 140/88; PULSE 84; RESP 16; TEMP 36.7; O2SAT 96
--- NOTE | 2023-04-15 19:21 | W.ED.WOUNDLC ---
HPI - Wound/Laceration General: Chief Complaint: Wound/Laceration Stated Complaint: boil in groin Time Seen by Provider: 04/15/23 19:21 History of Present Illness: 28-year-old male patient comes in today with a sore to the right inguinal area. Patient is concerned due to increasing swelling and redness. Patient had pinched on the area earlier and noted some increasing redness and swelling and blood draining from it since then. Patient appears nontoxic. Patient reports no fever or chills. Review of Systems General: Reports: 10 or more systems reviewed and unremarkable except in HPI and below Skin/Breast: Reports: new lesions PFS ED PFSH: Medical History Autistic disorder Disruptive mood dysregulation disorder Major depressive disorder, recurrent, moderate Psychiatric care Surgical History H/O esophagogastroduodenoscopy (05/30/21) History of foot surgery right- 2020 Social History Smoking and tobacco/nicotine status: never used tobacco/nicotine Physical Exam Const: COMMON NORMALS: alert HENMT: COMMON NORMALS: normocephalic HEAD & SCALP: normocephalic Neck/C-Spine: COMMON NORMALS: full ROM Resp: COMMON NORMALS: normal respiratory effort Cardio: COMMON NORMALS: regular rate RATE: regular rate Back/Pelvis: COMMON NORMALS: thoracic and lumbar spine normal to inspection Extremity: COMMON NORMALS: normal to inspection Neuro: SENSORIUM/ORIENTATION: Yes alert Skin: NARRATIVE SKIN EXAM: Lesion to the right inguinal area has no fluctuance and minimal induration. Some erythema approximately 2 cm surrounding it. Wound is draining small amount serosanguineous fluid. LESIONS: lesion noted (Right inguinal area, central lesion 2 cm surrounding redness) Course Vital Signs: Vital signs: Vital Signs Temperature 98.1 F 04/15/23 19:13 Pulse Rate 84 04/15/23 19:13 Respiratory Rate 16 04/15/23 19:13 Blood Pressure 140/88 04/15/23 19:13 Pulse Oximetry 96 04/15/23 19:13 Oxygen Delivery Me thod Room Air 04/15/23 19:13 MDM - Wound/Laceration Medical Decision Making 28-year-old male patient comes in with tender lesion to the right inguinal area. Patient had picked at it and noted some blood and then redness around it. On exam there is a soft palpable lesion to the right inguinal area with some mild pinpoint serosanguineous drainage from it. There is an area of redness approximately 2 cm. No fluctuance and minimal to no induration. Differential diagnosis includes but not limited to folliculitis, abscess, cellulitis. No signs of severe illness is noted at this time. Recommended mupirocin ointment to the wound and doxycycline. Recommended no more picking at the wound. Patient stated understanding and agreed to plan. No radiology studies performed this visit Discharge Plan Discharge Patient Disposition: Home Clinical Impression: Folliculitis Condition: Stable Prescriptions: New doxycycline hyclate 100 mg capsule 100 mg PO BID 7 Days Qty: 14 0RF mupirocin 2 % ointment 1 applic topical BID Qty: 22 0RF No Action acetaminophen [Tylenol Extra Strength] 500 mg tablet 500 mg PO TID PRN (Reason: pain) ziprasidone HCl 60 mg capsule See Rx Instructions .ROUTE .COMPLEX Qty: 30 2RF Dose Instruction: take 1 capsule BY MOUTH EVERY DAY with food Rx Instructions: take 1 capsule BY MOUTH EVERY DAY with food sertraline [Zoloft] 100 mg tablet 200 mg PO DAILY Qty: 60 2RF mirtazapine 45 mg tablet See Rx Instructions .ROUTE .COMPLEX Qty: 30 2RF Dose Instruction: TAKE 1 TABLET BY MOUTH AT BEDTIME Rx Instructions: TAKE 1 TABLET BY MOUTH AT BEDTIME bupropion HCl 300 mg tablet extended release 24 hr See Rx Instructions .ROUTE .COMPLEX Qty: 30 2RF Dose Instruction: TAKE 1 TABLET BY MOUTH EVERY DAY Rx Instructions: TAKE 1 TABLET BY MOUTH EVERY DAY bupropion HCl 150 mg tablet extended release 24 hr 150 mg PO DAILY@09 Qty: 30 2RF sildenafil 50 mg tablet 100 mg PO TID PRN Rx Instructions: Take 1 tablet by mouth 3 times a day weekly as needed quetiapine 200 mg tablet See Rx Instructions .ROUTE .COMPLEX Qty: 30 1RF Dose Instruction: TAKE 1 TABLET BY MOUTH AT BEDTIME Rx Instructions: TAKE 1 TABLET BY MOUTH AT BEDTIME omeprazole 40 mg Capsule,Delayed Release(Dr/Ec) 40 mg PO BID@, Qty: 60 0RF Clear Eyes Complete 0.025-0.2-0.5 % Drops 1 drp OPHTHALMIC (EYE) QID PRN (Reason: Allergy Symptoms) btjkrxzfu-pdzuminb-acltb-w.pet 0.25-1 % cream 1 applic [place] QID PRN (Reason: rectal discomfort) Qty: 51 0RF ondansetron HCl 4 mg tablet 4 mg PO Q6H PRN (Reason: nausea and vomiting) Qty: 20 0RF metoclopramide HCl [Reglan] 10 mg tablet 10 mg PO Q6H PRN (Reason: nausea and vomiting) Qty: 20 0RF loratadine [Claritin] 10 mg Tablet 10 mg PO DAILY PRN (Reason: Allergy Symptoms) multivitamin with folic acid [Daily-Shabbir (with folic acid)] 400 mcg tablet 1 tab PO DAILY@21 calcium carbonate 500 mg calcium (1,250 mg) Tablet,Chewable 500 mg PO Q4H PRN (Reason: Stomach Upset) Discharge Orders: Discharge ED (Routine); Ordered 04/15/23 Ordered By: Carlos Morton Referrals: Kenneth Bravo DO [Primary Care Provider] - Discharge Diet: Usual diet Discharge Activity: Increase activity as tolerated Patient Instructions: Folliculitis (ED) Activity Restrictions/Additional Instructions: Clean the wound twice a day with mild soap and water. Apply the antibiotic ointment. Take oral antibiotic doxycycline 100 mg twice a day for the next 7 days. You may use warm packs to the area to help with pain and swelling. Follow-up with primary care in 3 to 5 days for recheck. Return to ED for worsening symptoms such as high fever, increasing redness and swelling, or new concerns. Do not pick or press on the wound. It will drain if it needs to drain. 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
[2023-04-15] MEDS: doxycycline 100 mg Tablet PO (19:39)
[2023-04-15] MEDS: mupirocin oint 22 gm 1 APPLIC TOPICAL (19:40)
== END 2023-04-15 19:46 | disposition home or self-care (01) ==
PROVIDERS: Emergency Provider Nurse Practitioner Family; PCP Internal Medicine
DX: L73.9 Follicular disorder, unspecified (principal); F84.0 Autistic disorder
CPT/HCPCS: 99283

== ENCOUNTER 2023-04-24 16:26 | Emergency (ER) | payer MEDICAID, SELFPAY ==
[2023-04-24 16:27] VITALS: BP 135/86; PULSE 102; RESP 16; TEMP 37.1; O2SAT 95; BMI 32.9
--- NOTE | 2023-04-24 16:30 | W.ED.GENADLT ---
HPI - General Adult General: Chief complaint: General Medical Stated complaint: VIOLENT BEHAVIORS Time Seen by Provider: 04/24/23 16:27 Source: patient and EMS Mode of arrival: EMS Limitations: no limitations History of Present Illness: 28-year-old male has history of autism is well-known to the ER he lives at a [facility] with perfect partners she states he was hungry today and he had nothing to eat. He states that he normally go to the grocery store get some food that what led to him he became upset and angry. EMS was called due to him having an anger outburst she denies suicidal or homicidal ideation he is cooperative here. Associated symptoms: Deny chest pain, dyspnea, nausea, rash or vomiting Review of Systems Const: Denies: fever(s), chills, body aches or change in appetite ENMT: Denies: throat pain or dental pain Card: Denies: chest pain Resp: Denies: dyspnea GI: Denies: abdominal pain, nausea, vomiting or diarrhea Musc: Denies: neck pain or back pain Skin/Breast: Denies: rash Psych: Denies: depression, suicidal ideation or homicidal ideation PFSH ED PFSH: Medical History Psychiatric care Major depressive disorder, recurrent, moderate Disruptive mood dysregulation disorder Autistic disorder Surgical History H/O esophagogastroduodenoscopy (05/30/21) History of foot surgery right- 2020 Social History Smoking and tobacco/nicotine status: never used tobacco/nicotine Physical Exam Const: COMMON NORMALS: no acute distress, patient oriented x3 and healthy appearing HENMT: COMMON NORMALS: normocephalic and atraumatic HEAD & SCALP: normocephalic and atraumatic Neck/C-Spine: COMMON NORMALS: full ROM and supple Chest: COMMONS NORMALS: normal inspection of the chest Resp: COMMON NORMALS: normal respiratory effort Extremity: COMMON NORMALS: normal to inspection and full ROM Neuro: COMMON NORMALS: patient oriented x3, moves all extremities and no focal motor deficits Psych: COMMON NORMALS: mental status grossly normal, Normal thought process present and cooperative THOUGHT PROCESS: Normal thought process present Skin: COMMON NORMALS: no rashes or lesions noted and no wounds GENERAL SKIN EXAM: no rashes or lesions noted Course Vital Signs: Vital signs: Vital Signs Temperature 98.7 F 04/24/23 16:39 Pulse Rate 102 H 04/24/23 16:39 Respiratory Rate 16 04/24/23 16:39 Blood Pressure 135/86 04/24/23 16:39 Pulse Oximetry 95 04/24/23 16:39 Oxygen Delivery Me thod Room Air 04/24/23 16:27 MDM - General Adult Medical Decision Making Patient presents with an anger outburst he is well-appearing here he is not suicidal or homicidal he is calm down did give him food spoke to Dr. Howell who knows him well he does not meet admission criteria stable for discharge back to [facility] Medical Records I reviewed the patient's medical records. No radiology studies performed this visit Discharge Plan Discharge Patient Disposition: Home Clinical Impression: Outbursts of anger Condition: Stable Prescriptions: No Action acetaminophen [Tylenol Extra Strength] 500 mg tablet 500 mg PO TID PRN (Reason: pain) ziprasidone HCl 60 mg capsule See Rx Instructions .ROUTE .COMPLEX Qty: 30 2RF Dose Instruction: take 1 capsule BY MOUTH EVERY DAY with food Rx Instructions: take 1 capsule BY MOUTH EVERY DAY with food sertraline [Zoloft] 100 mg tablet 200 mg PO DAILY Qty: 60 2RF mirtazapine 45 mg tablet See Rx Instructions .ROUTE .COMPLEX Qty: 30 2RF Dose Instruction: TAKE 1 TABLET BY MOUTH AT BEDTIME Rx Instructions: TAKE 1 TABLET BY MOUTH AT BEDTIME bupropion HCl 300 mg tablet extended release 24 hr See Rx Instructions .ROUTE .COMPLEX Qty: 30 2RF Dose Instruction: TAKE 1 TABLET BY MOUTH EVERY DAY Rx Instructions: TAKE 1 TABLET BY MOUTH EVERY DAY bupropion HCl 150 mg tablet extended release 24 hr 150 mg PO DAILY@09 Qty: 30 2RF sildenafil 50 mg tablet 100 mg PO TID PRN Rx Instructions: Take 1 tablet by mouth 3 times a day weekly as needed quetiapine 200 mg tablet See Rx Instructions .ROUTE .COMPLEX Qty: 30 1RF Dose Instruction: TAKE 1 TABLET BY MOUTH AT BEDTIME Rx Instructions: TAKE 1 TABLET BY MOUTH AT BEDTIME omeprazole 40 mg Capsule,Delayed Release(Dr/Ec) 40 mg PO BID@ Qty: 60 0RF Clear Eyes Complete 0.025-0.2-0.5 % Drops 1 drp OPHTHALMIC (EYE) QID PRN (Reason: Allergy Symptoms) kmiwmbkrb-moneicws-luzko-w.pet 0.25-1 % cream 1 applic [place] QID PRN (Reason: rectal discomfort) Qty: 51 0RF ondansetron HCl 4 mg tablet 4 mg PO Q6H PRN (Reason: nausea and vomiting) Qty: 20 0RF metoclopramide HCl [Reglan] 10 mg tablet 10 mg PO Q6H PRN (Reason: nausea and vomiting) Qty: 20 0RF loratadine [Claritin] 10 mg Tablet 10 mg PO DAILY PRN (Reason: Allergy Symptoms) multivitamin with folic acid [Daily-Shabbir (with folic acid)] 400 mcg tablet 1 tab PO DAILY@21 calcium carbonate 500 mg calcium (1,250 mg) Tablet,Chewable 500 mg PO Q4H PRN (Reason: Stomach Upset) mupirocin 2 % ointment 1 applic topical BID Qty: 22 0RF Discharge Orders: Discharge ED (Routine); Ordered 04/24/23 Ordered By: Aga Berry Referrals: Kenneth Bravo DO [Primary Care Provider] - 4-7 days Discharge Diet: Advance as tolerated Discharge Activity: Resume usual activity Patient Instructions: Mood Disorders (ED) Coding Level of Care Code ED Forming Machine Adjuster for Alva Che
[2023-04-24 16:39] VITALS: BP 135/86; PULSE 102; RESP 16; TEMP 37.1; O2SAT 95
== END 2023-04-24 16:54 | disposition home or self-care (01) ==
PROVIDERS: Emergency Provider Emergency Medicine; PCP Internal Medicine
DX: R45.4 Irritability and anger (principal); F84.0 Autistic disorder
CPT/HCPCS: 99283

== ENCOUNTER 2023-05-21 17:55 | Emergency (ER) | payer MEDICAID, SELFPAY ==
[2023-05-21 18:00] VITALS: BP 143/78; PULSE 90; RESP 17; TEMP 36.6; O2SAT 97
--- NOTE | 2023-05-21 18:11 | W.ED.PSYCHS ---
HPI - Psych General: Chief Complaint: Psychiatric Symptoms Stated Complaint: depression Time Seen by Provider: 05/21/23 18:06 History of Present Illness: This is a very pleasant 28-year-old man with autism who presents the emergency room with worsening depression symptoms. He says he does not feel suicidal or homicidal. He says he thinks his depression medications are working but then at times he does not feel that way. He says sometimes he just feels really down. He does not feel like hurting himself. No other complaints today. No chest pain. No shortness of breath. No altered mental status. No focal motor deficits. Review of Systems Narrative: Constitutional symptoms: Negative except as documented in HPI. Skin symptoms: Negative except as documented in HPI. Eye symptoms: Negative except as documented in HPI. ENMT symptoms: Negative except as documented in HPI. Respiratory symptoms: Negative except as documented in HPI. Cardiovascular symptoms: Negative except as documented in HPI. Gastrointestinal symptoms: Negative except as documented in HPI. Genitourinary symptoms: Negative except as documented in HPI. Musculoskeletal symptoms: Negative except as documented in HPI. Neurologic symptoms: Negative except as documented in HPI. Psychiatric symptoms: Negative except as documented in HPI. Endocrine symptoms: Negative except as documented in HPI. FOR[facility] ED PFSH: Medical History Psychiatric care Major depressive disorder, recurrent, moderate Disruptive mood dysregulation disorder Autistic disorder Surgical History H/O esophagogastroduodenoscopy (05/30/21) History of foot surgery right- 2020 Social History Smoking and tobacco/nicotine status: never used tobacco/nicotine Physical Exam Narrative: EXAM NARRATIVE: General: Alert, no acute distress. Skin: Warm, dry. Head: Normocephalic, atraumatic. Neck: Supple, trachea midline. Eye: Extraocular movements are intact. Ears, nose, mouth and throat: mucosa moist. Cardiovascular: Regular, Normal peripheral perfusion. Respiratory: Lungs are clear to auscultation, respirations are non-labored, breath sounds are equal, Symmetrical chest wall expansion. Gastrointestinal: Soft, Nontender, Non distended, Normal bowel sounds. Musculoskeletal: Normal ROM, no deformity. Neurological: Alert and oriented, No focal neurological deficit observed. Psychiatric: Cooperative, patient does have a bit of a autistic affect. He denies completely any suicidal ideation. Course Vital Signs: Vital signs: Vital Signs Temperature 97.9 F 05/21/23 18:00 Pulse Rate 90 05/21/23 18:00 Respiratory Rate 17 05/21/23 18:00 Blood Pressure 143/78 05/21/23 18:00 Pulse Oximetry 97 05/21/23 18:00 Oxygen Delivery Me thod Room Air 05/21/23 18:00 MDM - Psych Medical Decision Making We discussed at length that likely this is depression that needs to be managed as an outpatient and does not warrant him being admitted to a facility for days. He agrees. He also agrees that if he develops suicidal thoughts he will return to the emergency room. No radiology studies performed this visit Other Data Assessment and plan: - Discharged home - Discussed plan with patient. Answered any questions. - Evaluation and treatment of this problem were appropriate in the emergency setting. Discharge Plan Discharge Patient Disposition: Home Clinical Impression: Autistic disorder, Depression Condition: Stable Prescriptions: No Action acetaminophen [Tylenol Extra Strength] 500 mg tablet 500 mg PO TID PRN (Reason: pain) sildenafil 50 mg tablet 100 mg PO TID PRN Rx Instructions: Take 1 tablet by mouth 3 times a day weekly as needed bupropion HCl 150 mg tablet extended release 24 hr 150 mg PO DAILY@09 Qty: 30 2RF sertraline [Zoloft] 100 mg tablet 200 mg PO DAILY Qty: 60 2RF quetiapine 200 mg tablet See Rx Instructions .ROUTE .COMPLEX Qty: 30 1RF Dose Instruction: TAKE 1 TABLET BY MOUTH AT BEDTIME Rx Instructions: TAKE 1 TABLET BY MOUTH AT BEDTIME bupropion HCl 300 mg tablet extended release 24 hr See Rx Instructions .ROUTE .COMPLEX Qty: 30 2RF Dose Instruction: TAKE 1 TABLET BY MOUTH EVERY DAY Rx Instructions: TAKE 1 TABLET BY MOUTH EVERY DAY mirtazapine 45 mg tablet See Rx Instructions .ROUTE .COMPLEX Qty: 30 2RF Dose Instruction: TAKE 1 TABLET BY MOUTH AT BEDTIME Rx Instructions: TAKE 1 TABLET BY MOUTH AT BEDTIME ziprasidone HCl 60 mg capsule See Rx Instructions .ROUTE .COMPLEX Qty: 30 2RF Dose Instruction: take 1 capsule BY MOUTH EVERY DAY with food Rx Instructions: take 1 capsule BY MOUTH EVERY DAY with food omeprazole 40 mg Capsule,Delayed Release(Dr/Ec) 40 mg PO BID@09,21 Qty: 60 0RF Clear Eyes Complete 0.025-0.2-0.5 % Drops 1 drp OPHTHALMIC (EYE) QID PRN (Reason: Allergy Symptoms) xyfwvshqv-bcbipkyy-tvpir-w.pet 0.25-1 % cream 1 applic DC QID PRN (Reason: rectal discomfort) Qty: 51 0RF ondansetron HCl 4 mg tablet 4 mg PO Q6H PRN (Reason: nausea and vomiting) Qty: 20 0RF metoclopramide HCl [Reglan] 10 mg tablet 10 mg PO Q6H PRN (Reason: nausea and vomiting) Qty: 20 0RF loratadine [Claritin] 10 mg Tablet 10 mg PO DAILY PRN (Reason: Allergy Symptoms) multivitamin with folic acid [Daily-Shabbir (with folic acid)] 400 mcg tablet 1 tab PO DAILY@21 calcium carbonate 500 mg calcium (1,250 mg) Tablet,Chewable 500 mg PO Q4H PRN (Reason: Stomach Upset) mupirocin 2 % ointment 1 applic topical BID Qty: 22 0RF Discharge Orders: Discharge ED (Routine); Ordered 05/21/23 Ordered By: Adrianna Salas Referrals: Kenneth Bravo DO [Primary Care Provider] - (Please arrange for follow-up with your psychiatrist as soon as possible. If you develop any suicidal thoughts or ideations please return to the emergency room immediately. You have been screened and evaluated and felt safe for discharge. Health conditions do change or evolve sometimes and as such it is important that you follow up with your Primary Doctor to be re checked, 3-5 days is a general good time frame for follow up. You are always welcome to return to the ED for re assessment if your symptoms are worsening or you have new concerns) Discharge Diet: Usual diet Discharge Activity: Resume usual activity Patient Instructions: Depression (ED), Opioid Safety, Pain Management Coding Level of Care Code ED Emblem Cutter for Alva Che
== END 2023-05-21 18:15 | disposition home or self-care (01) ==
PROVIDERS: Emergency Provider Emergency Medicine; PCP Internal Medicine
DX: F32.A Depression, unspecified (principal); F84.0 Autistic disorder
CPT/HCPCS: 99283

== ENCOUNTER → 2023-06-30 10:46 | Outpatient (BNVA) | payer MEDICAID, SELFPAY | PROVIDERS: PCP Internal Medicine; Visit Provider Nurse Practitioner | DX: Z79.899 Other long term (current) drug therapy (principal); F33.1 Major depressive disorder, recurrent, moderate; F84.0 Autistic disorder; F33.2 Major depressive disorder, recurrent severe without psychotic features; F34.81 Disruptive mood dysregulation disorder | CPT/HCPCS: 80061; 83036 ==

== ENCOUNTER 2023-07-12 20:26 | Emergency (ER) | payer MEDICAID, SELFPAY ==
[2023-07-12 20:30] VITALS: BP 134/85; PULSE 95; RESP 18; TEMP 36.7; O2SAT 94
--- NOTE | 2023-07-12 20:57 | ED_ITS ---
HPI - Skin/Abscess/Foreign Bdy General: Chief complaint: Skin/Abscess/Foreign Body Stated complaint: Left Foot Swollen Time Seen by Provider: 07/12/23 20:49 Source: patient Mode of arrival: ambulatory Limitations: no limitations History of Present Illness: 28-year-old male states he was stung by a yellow jacket 2 days ago on his left foot he had some swelling and pruritus. States he has some pain he rates a 2 out of 10 he denies any fevers denies any drainage she denies any worse improving factors. Associated symptoms: Deny chills, fever(s), nausea or vomiting Review of Systems Const: Denies: fever(s), chills, body aches or change in appetite ENMT: Denies: throat pain or dental pain Card: Denies: chest pain Resp: Denies: dyspnea GI: Denies: abdominal pain, nausea, vomiting or diarrhea Musc: Reports: extremity pain; Denies: neck pain or back pain Skin/Breast: Denies: rash Neuro: Denies: headache(s) PFSH ED PFSH: Medical History On combination antipsychotic drug therapy Psychiatric care Major depressive disorder, recurrent, moderate Disruptive mood dysregulation disorder Autistic disorder Surgical History H/O esophagogastroduodenoscopy (05/30/21) History of foot surgery right- 2020 Social History Smoking and tobacco/nicotine status: never used tobacco/nicotine Physical Exam Const: COMMON NORMALS: no acute distress, patient oriented x3 and healthy appearing HENMT: COMMON NORMALS: normocephalic and atraumatic HEAD & SCALP: normocephalic and atraumatic Neck/C-Spine: COMMON NORMALS: full ROM and supple Chest: COMMONS NORMALS: normal inspection of the chest Resp: COMMON NORMALS: normal respiratory effort Cardio: COMMON NORMALS: regular rate RATE: regular rate Extremity: NARRATIVE EXTREMITY EXAM: While sting noted to left foot very slight swelling no erythema no signs of infection Neuro: COMMON NORMALS: patient oriented x3, moves all extremities and no focal motor deficits Psych: COMMON NORMALS: mental status grossly normal, Normal thought process present and cooperative THOUGHT PROCESS: Normal thought process present Skin: COMMON NORMALS: no rashes or lesions noted and no wounds GENERAL SKIN EXAM: no rashes or lesions noted Course Vital Signs: Vital signs: Vital Signs Temperature 98.0 F 07/12/23 20:30 Pulse Rate 95 07/12/23 20:30 Respiratory Rate 18 07/12/23 20:30 Blood Pressure 134/85 07/12/23 20:30 Pulse Oximetry 94 07/12/23 20:30 Oxygen Delivery Me thod Room Air 07/12/23 20:30 MDM - Skin/Abscess/Foreign Bdy Medicial Decision Making Patient presents after a wasp sting he is well-appearing here no signs of anaphylaxis some slight localized reaction no cellulitis he stable for discharge follow-up PCP return if worsening No radiology studies performed this visit Discharge Plan Discharge Patient Disposition: Home Clinical Impression: Accidental wasp sting Condition: Stable Prescriptions: No Action acetaminophen [Tylenol Extra Strength] 500 mg tablet 500 mg PO TID PRN (Reason: pain) sildenafil 50 mg tablet 100 mg PO TID PRN Rx Instructions: Take 1 tablet by mouth 3 times a day weekly as needed bupropion HCl 150 mg tablet extended release 24 hr 150 mg PO DAILY@09 Qty: 30 2RF sertraline [Zoloft] 100 mg tablet 200 mg PO DAILY Qty: 60 2RF bupropion HCl 300 mg tablet extended release 24 hr See Rx Instructions .ROUTE .COMPLEX Qty: 30 2RF Dose Instruction: TAKE 1 TABLET BY MOUTH EVERY DAY Rx Instructions: TAKE 1 TABLET BY MOUTH EVERY DAY mirtazapine 45 mg tablet See Rx Instructions .ROUTE .COMPLEX Qty: 30 2RF Dose Instruction: TAKE 1 TABLET BY MOUTH AT BEDTIME Rx Instructions: TAKE 1 TABLET BY MOUTH AT BEDTIME ziprasidone HCl 60 mg capsule See Rx Instructions .ROUTE .COMPLEX Qty: 30 2RF Dose Instruction: take 1 capsule BY MOUTH EVERY DAY with food Rx Instructions: take 1 capsule BY MOUTH EVERY DAY with food quetiapine 200 mg tablet See Rx Instructions .ROUTE .COMPLEX Qty: 30 1RF Dose Instruction: TAKE 1 TABLET BY MOUTH AT BEDTIME Rx Instructions: TAKE 1 TABLET BY MOUTH AT BEDTIME omeprazole 40 mg Capsule,Delayed Release(Dr/Ec) 40 mg PO BID@09,21 Qty: 60 0RF Clear Eyes Complete 0.025-0.2-0.5 % Drops 1 drp OPHTHALMIC (EYE) QID PRN (Reason: Allergy Symptoms) myxedroqd-nlgaofsy-vguxk-w.pet 0.25-1 % cream 1 applic [place] QID PRN (Reason: rectal discomfort) Qty: 51 0RF ondansetron HCl 4 mg tablet 4 mg PO Q6H PRN (Reason: nausea and vomiting) Qty: 20 0RF metoclopramide HCl [Reglan] 10 mg tablet 10 mg PO Q6H PRN (Reason: nausea and vomiting) Qty: 20 0RF loratadine [Claritin] 10 mg Tablet 10 mg PO DAILY PRN (Reason: Allergy Symptoms) multivitamin with folic acid [Daily-Shabbir (with folic acid)] 400 mcg tablet 1 tab PO DAILY@21 calcium carbonate 500 mg calcium (1,250 mg) Tablet,Chewable 500 mg PO Q4H PRN (Reason: Stomach Upset) mupirocin 2 % ointment 1 applic topical BID Qty: 22 0RF Discharge Orders: Discharge ED (Routine); Ordered 07/12/23 Ordered By: Aga Berry Referrals: Kenneth Bravo DO [Primary Care Provider] - 4-7 days Discharge Diet: Advance as tolerated Discharge Activity: Resume usual activity Patient Instructions: Insect Bite or Sting (ED) Coding Level of Care Code ED Accounts Receivable Collector for Alva Che
[2023-07-12] MEDS: diphenhydrAMINE 50 mg Capsule PO (21:02)
== END 2023-07-12 21:04 | disposition home or self-care (01) ==
PROVIDERS: Emergency Provider Emergency Medicine; PCP Internal Medicine
DX: T63.461A Toxic effect of venom of wasps, accidental (unintentional), initial encounter (principal); F84.0 Autistic disorder
CPT/HCPCS: 99283; Q0163

== ENCOUNTER 2023-09-20 14:13 | Emergency (ER) | payer MEDICAID, SELFPAY ==
[2023-09-20 14:15] VITALS: BP 136/84; PULSE 91; RESP 18; TEMP 36.9; O2SAT 96; BMI 32.9
--- NOTE | 2023-09-20 14:19 | W.ED.PSYCHS ---
HPI - Psych General: Chief Complaint: Psychiatric Symptoms Stated Complaint: mhe Time Seen by Provider: 09/20/23 14:14 Source: patient and EMS Mode of arrival: EMS Limitations: no limitations History of Present Illness: 28-year-old male he is very well-known to the ER states he has a long history depression states been having some increasing depression states he wants to talk to someone about possible med adjustment states has been try to get appointment at [facility] [place] but has not he denies SI or HI patient is calm cooperative here. Associated symptoms: Reports depression Related Data Home Medications Medication Instructions Recorded Confirmed acetaminophen 500 mg tablet 500 mg PO TID PRN pain 02/13/19 06/30/23 (Tylenol Extra Strength) calcium carbonate 500 mg PO Q4H PRN Stomach Upset 10/06/21 06/30/23 loratadine 10 mg tablet (Claritin) 10 mg PO DAILY PRN Allergy Symptoms 10/06/21 06/30/23 multivitamin with folic acid 400 1 tab PO DAILY@21 10/06/21 06/30/23 mcg tablet (Daily-Shabbir (with folic acid)) naphazo HCl 0.025 %-hyprome 0.2 1 drp ophthalmic (eye) QID PRN 12/22/21 06/30/23 %-ps 80 0.5 %-Zn sulf 0.25 % eye Allergy Symptoms drops (Clear Eyes Complete) sildenafil 50 mg tablet 100 mg PO TID PRN 10/19/22 06/30/23 Previous Rx's Medication Instructions Recorded metoclopramide HCl 10 mg tablet 10 mg PO Q6H PRN nausea and 05/23/21 (Reglan) vomiting #20 tabs omeprazole 40 mg capsule,delayed 40 mg PO BID@ #60 caps 12/21/21 release phenylephrine 0.25 %-pramoxine 1 1 applic [place] QID PRN rectal 06/16/22 %-glycerin-wh.petrolatum rectal discomfort #51 grams cream ondansetron HCl 4 mg tablet 4 mg PO Q6H PRN nausea and 02/16/23 vomiting #20 tabs mupirocin 2 % topical ointment 1 applic topical BID #22 grams 04/15/23 bupropion HCl 300 mg 24 hr tablet, See Rx Instructions .Route 05/11/23 extended release .COMPLEX #30 tabs sertraline 100 mg tablet (Zoloft) 200 mg (2 x 100 mg) PO DAILY #60 05/11/23 tabs ziprasidone HCl 60 mg capsule See Rx Instructions .Route 05/11/23 .COMPLEX #30 caps bupropion HCl 150 mg 24 hr tablet, 150 mg PO DAILY@09 #30 tabs 07/27/23 extended release mirtazapine 45 mg tablet See Rx Instructions .Route 08/16/23 .COMPLEX #30 tabs quetiapine 200 mg tablet See Rx Instructions .Route 09/07/23 .COMPLEX #30 tabs Allergies Allergy/AdvReac Type Severity Reaction Status Date / Time haloperidol [From Haldol] Allergy Unknown Verified 09/20/23 14:20 methylphenidate Allergy Unknown Verified 09/20/23 14:20 [From Ritalin] Review of Systems Const: Denies: fever(s), chills, body aches or change in appetite ENMT: Denies: throat pain or dental pain Card: Denies: chest pain Resp: Denies: dyspnea GI: Denies: abdominal pain, nausea, vomiting or diarrhea Musc: Denies: neck pain or back pain Skin/Breast: Denies: rash Neuro: Denies: headache(s) Psych: Reports: depression PFSH ED PFSH: Medical History On combination antipsychotic drug therapy Psychiatric care Major depressive disorder, recurrent, moderate Disruptive mood dysregulation disorder Autistic disorder Surgical History H/O esophagogastroduodenoscopy (05/30/21) History of foot surgery right- 2020 Social History Smoking and tobacco/nicotine status: never used tobacco/nicotine Physical Exam Const: COMMON NORMALS: no acute distress, patient oriented x3 and healthy appearing HENMT: COMMON NORMALS: normocephalic and atraumatic HEAD & SCALP: normocephalic and atraumatic Neck/C-Spine: COMMON NORMALS: full ROM and supple Chest: COMMONS NORMALS: normal inspection of the chest Resp: COMMON NORMALS: normal respiratory effort Extremity: COMMON NORMALS: normal to inspection and full ROM Neuro: COMMON NORMALS: patient oriented x3, moves all extremities and no focal motor deficits Psych: COMMON NORMALS: mental status grossly normal, Normal thought process present and cooperative MOOD & AFFECT: Yes depressed mood THOUGHT PROCESS: Normal thought process present Skin: COMMON NORMALS: no rashes or lesions noted and no wounds GENERAL SKIN EXAM: no rashes or lesions noted Course Vital Signs: Vital signs: Vital Signs Temperature 98.5 F 09/20/23 14:15 Pulse Rate 91 09/20/23 14:15 Respiratory Rate 18 09/20/23 14:15 Blood Pressure 136/84 09/20/23 14:15 Pulse Oximetry 96 09/20/23 14:15 Oxygen Delivery Me thod Room Air 09/20/23 14:15 MDM - Psych Medical Decision Making Patient presents here with depression he is not suicidal or homicidal did speak to Dr. Howell who knows patient well we will discharge him at this time and patient is being escorted over to the crisis stabilization unit at this time for further assessment. Does not require admission Medical Records I reviewed the patient's medical records. No radiology studies performed this visit Discharge Plan Discharge Patient Disposition: Home Clinical Impression: Depression Condition: Stable Prescriptions: No Action acetaminophen [Tylenol Extra Strength] 500 mg tablet 500 mg PO TID PRN (Reason: pain) sildenafil 50 mg tablet 100 mg PO TID PRN Rx Instructions: Take 1 tablet by mouth 3 times a day weekly as needed sertraline [Zoloft] 100 mg tablet 200 mg PO DAILY Qty: 60 2RF bupropion HCl 300 mg tablet extended release 24 hr See Rx Instructions .ROUTE .COMPLEX Qty: 30 2RF Dose Instruction: TAKE 1 TABLET BY MOUTH EVERY DAY Rx Instructions: TAKE 1 TABLET BY MOUTH EVERY DAY ziprasidone HCl 60 mg capsule See Rx Instructions .ROUTE .COMPLEX Qty: 30 2RF Dose Instruction: take 1 capsule BY MOUTH EVERY DAY with food Rx Instructions: take 1 capsule BY MOUTH EVERY DAY with food bupropion HCl 150 mg tablet extended release 24 hr 150 mg PO DAILY@09 Qty: 30 2RF mirtazapine 45 mg tablet See Rx Instructions .ROUTE .COMPLEX Qty: 30 2RF Dose Instruction: TAKE 1 TABLET BY MOUTH AT BEDTIME Rx Instructions: TAKE 1 TABLET BY MOUTH AT BEDTIME quetiapine 200 mg tablet See Rx Instructions .ROUTE .COMPLEX Qty: 30 1RF Dose Instruction: TAKE 1 TABLET BY MOUTH AT BEDTIME Rx Instructions: TAKE 1 TABLET BY MOUTH AT BEDTIME omeprazole 40 mg Capsule,Delayed Release(Dr/Ec) 40 mg PO BID@09,21 Qty: 60 0RF Clear Eyes Complete 0.025-0.2-0.5 % Drops 1 drp OPHTHALMIC (EYE) QID PRN (Reason: Allergy Symptoms) mwaxqvusu-svusjyxz-vxhmy-w.pet 0.25-1 % cream 1 applic [place] QID PRN (Reason: rectal discomfort) Qty: 51 0RF ondansetron HCl 4 mg tablet 4 mg PO Q6H PRN (Reason: nausea and vomiting) Qty: 20 0RF metoclopramide HCl [Reglan] 10 mg tablet 10 mg PO Q6H PRN (Reason: nausea and vomiting) Qty: 20 0RF loratadine [Claritin] 10 mg Tablet 10 mg PO DAILY PRN (Reason: Allergy Symptoms) multivitamin with folic acid [Daily-Shabbir (with folic acid)] 400 mcg tablet 1 tab PO DAILY@21 calcium carbonate 500 mg calcium (1,250 mg) Tablet,Chewable 500 mg PO Q4H PRN (Reason: Stomach Upset) mupirocin 2 % ointment 1 applic topical BID Qty: 22 0RF Discharge Orders: Discharge ED (Routine); Ordered 09/20/23 Ordered By: Aga Berry Referrals: Kenneth Bravo DO [Primary Care Provider] - Discharge Diet: Advance as tolerated Discharge Activity: Resume usual activity Patient Instructions: Depression (ED) Coding Level of Care Code ED Stain Dipper for Alva Che
[2023-09-20 14:43] VITALS: BP 136/84; PULSE 94; O2SAT 96
== END 2023-09-20 14:45 | disposition home or self-care (01) ==
PROVIDERS: Emergency Provider Emergency Medicine; PCP Internal Medicine
DX: F32.A Depression, unspecified (principal); F84.0 Autistic disorder
CPT/HCPCS: 99283

== ENCOUNTER 2024-01-16 18:59 | Emergency (ER) | payer MEDICAID, SELFPAY ==
[2024-01-16 19:01] VITALS: BP 106/64; PULSE 130; RESP 18; TEMP 37; O2SAT 98; BMI 32.9
--- NOTE | 2024-01-16 19:10 | ECG_ITS ---
[facility] 2024-01[facility]16 Pat Name: Josh Colindres Department: Room: Gender: Male [employer] Writer: : 1995 Requested By: Aga Berry Order Number: [id number] Calli MD: FREDRICK LOUISE Measurements Intervals [place] Rate: 126 P: 91 VT: 154 QRS: 244 QRSD: 109 T: 84 QT: 307 QTc: 446 Interpretive Statements SINUS TACHYCARDIA RIGHT AXIS DEVIATION [QRS AXIS > 100] POSSIBLE ANTERIOR MYOCARDIAL INFARCTION , OF INDETERMINATE AGE [30 ms Q WAVE IN V3/V4, OR R < 0.2 mV IN V4] Compared to ECG 10/29/2017 11:15:43 Right-axis deviation now present Myocardial infarct finding now present Sinus rhythm no longer present Sinus arrhythmia no longer present Electronically Signed On 01-17-2024 16:07:47 MEDIA ANALYST by FREDRICK LOUISE [id number]
--- NOTE | 2024-01-16 19:47 | ED_ITS ---
HPI - Nausea/Vomiting/Diarrhea 2 General: Chief complaint: Nausea/Vomiting/Diarrhea Stated complaint: Vomitting and Headache Time Seen by Provider: 01/16/24 19:39 Source: patient and EMS Mode of arrival: EMS Limitations: no limitations History of Present Illness: 28-year-old male who states he had 8 piz za at lunch and started to get sick states had vomiting diarrhea throughout the day. States he had a mild headache as well he rates his headache a 4 out of 10 he states headaches started after he has been throwing up he denies any abdominal pain denies any fevers denies any worse improved factors. Associated nausea: Yes Associated symtoms: Reports headache(s) and nausea; Denies chest pain Related Data Home Medications Medication Instructions Recorded Confirmed acetaminophen 500 mg tablet 500 mg PO TID PRN pain 02/13/19 12/23/23 (Tylenol Extra Strength) calcium carbonate 500 mg PO Q4H PRN Stomach Upset 10/06/21 12/23/23 loratadine 10 mg tablet (Claritin) 10 mg PO DAILY PRN Allergy Symptoms 10/06/21 12/23/23 multivitamin with folic acid 400 1 tab PO DAILY@21 10/06/21 12/23/23 mcg tablet (Daily-Shabbir (with folic acid)) naphazo HCl 0.025 %-hyprome 0.2 1 drp ophthalmic (eye) QID PRN 12/22/21 12/23/23 %-ps 80 0.5 %-Zn sulf 0.25 % eye Allergy Symptoms drops (Clear Eyes Complete) sildenafil 50 mg tablet 100 mg PO TID PRN 10/19/22 12/23/23 Previous Rx's Medication Instructions Recorded metoclopramide HCl 10 mg tablet 10 mg PO Q6H PRN nausea and 05/23/21 (Reglan) vomiting #20 tabs omeprazole 40 mg capsule,delayed 40 mg PO BID@ #60 caps 12/21/21 release phenylephrine 0.25 %-pramoxine 1 1 applic SC QID PRN rectal 06/16/22 %-glycerin-wh.petrolatum rectal discomfort #51 grams cream ondansetron HCl 4 mg tablet 4 mg PO Q6H PRN nausea and 02/16/23 vomiting #20 tabs mupirocin 2 % topical ointment 1 applic topical BID #22 grams 04/15/23 bupropion HCl 150 mg 24 hr tablet, 150 mg PO DAILY@09 #30 tabs 12/23/23 extended release bupropion HCl 300 mg 24 hr tablet, See Rx Instructions .Route 12/23/23 extended release .COMPLEX #30 tabs quetiapine 200 mg tablet See Rx Instructions .Route 12/23/23 .COMPLEX #30 tabs sertraline 100 mg tablet (Zoloft) 100 mg PO DAILY #7 tabs 12/23/23 sertraline 50 mg tablet (Zoloft) 50 mg PO DAILY #7 tabs 12/23/23 ziprasidone HCl 60 mg capsule See Rx Instructions .Route 12/23/23 .COMPLEX #30 caps mirtazapine 30 mg tablet (Remeron) 30 mg PO DAILY #30 tabs 12/31/23 venlafaxine 37.5 mg 37.5 mg PO DAILY #30 caps 12/31/23 capsule,extended release 24 hr (Effexor XR) ondansetron 4 mg disintegrating 4 mg PO Q6H PRN nausea and 01/16/24 tablet vomiting #14 tabs Allergies Allergy/AdvReac Type Severity Reaction Status Date / Time haloperidol [From Haldol] Allergy Unknown Verified 12/23/23 08:37 methylphenidate Allergy Unknown Verified 12/23/23 08:37 [From Ritalin] Review of Systems 2 Const: Denies: fever(s), chills, body aches or change in appetite ENMT: Denies: throat pain or dental pain Card: Denies: chest pain Resp: Denies: dyspnea GI: Reports: nausea, vomiting and diarrhea; Denies: abdominal pain Musc: Denies: neck pain or back pain Skin/Breast: Denies: rash Neuro: Reports: headache(s) PFSH ED 2 PFSH: Medical History On combination antipsychotic drug therapy Psychiatric care Major depressive disorder, recurrent, moderate Disruptive mood dysregulation disorder Autistic disorder Surgical History H/O esophagogastroduodenoscopy (05/30/21) History of foot surgery right- 2020 Social History Smoking and tobacco/nicotine status: never used tobacco/nicotine Physical Exam 2 Const: COMMON NORMALS: no acute distress, patient oriented x3 and healthy appearing HENMT: COMMON NORMALS: normocephalic and atraumatic HEAD & SCALP: n ormocephalic and atraumatic Neck/C-Spine: COMMON NORMALS: full ROM and supple Chest: COMMONS NORMALS: normal inspection of the chest Resp: COMMON NORMALS: normal respiratory effort, No retractions, No use of accessory muscles and clear to auscultation bilaterally AUSCULTATION: clear to auscultation bilaterally Cardio: COMMON NORMALS: regular rhythm and No murmurs present (Cardio) R ATE: tachycardic RHYTHM: regular rhythm GI: COMMON NORMALS: Normal to inspection, nondistended, normoactive bowel sounds present, Soft to palpation, non-tender and no masses PALPATION: Yes Soft to palpation Extremity: COMMON NORMALS: normal to inspection and full ROM Neuro: COMMON NORMALS: patient oriented x3, moves all extremities and no focal motor deficits Psych: COMMON NORMALS: mental status grossly normal, Normal thought process present and cooperative THOUGHT PROCESS: Normal thought process present Skin: COMMON NORMALS: no rashes or lesions noted and no wounds GENERAL SKIN EXAM: no rashes or lesions noted Course 2 Vital Signs: Vital signs: Vital Signs Temperature 98.6 F 01/16/24 19:01 Pulse Rate 130 H 01/16/24 19:01 Respiratory Rate 18 01/16/24 19:01 Blood Pressure 106/64 01/16/24 19:01 Pulse Oximetry 98 01/16/24 19:01 Oxygen Delivery Me thod Room Air 01/16/24 19:01 MDM - Nausea/Vomiting/Diarrhea Medical Decision Making Patient presents here with vomiting likely food poisoning has had no more vomiting he refused any meds here states he feels much improved blood works normal his heart rate here is improving he stable for discharge follow-up PCP return if worsening. Medical Records I reviewed the patient's medical records. Lab Data I reviewed the patient's lab results. 01/16/24 19:57 01/16/24 19:57 Laboratory Results WBC 8.90 10^3/uL (3.29-11.43) 01/16/24 19:57 RBC 5.69 10^6/uL (3.85-5.65) H 01/16/24 19:57 Hgb 17.10 g/dL (11.27-16.99) H 01/16/24 19:57 Hct 49.6 % (37-53) 01/16/24 19:57 MCV 87.2 fl (82-101) 01/16/24 19:57 MCH 30.1 pg (27-33) 01/16/24 19:57 MCHC 34.5 g/dL (30-55) 01/16/24 19:57 RDW 11.9 % (12.1-15.1) L 01/16/24 19:57 Plt Count 198 10^3/cmm (157-399) 01/16/24 19:57 MPV 10.0 fL (7.4-10.4) 01/16/24 19:57 Neut % (Auto) 80.7 % 01/16/24 19:57 Lymph % (Auto) 9.9 % 01/16/24 19:57 [place] % (Auto) 7.9 % 01/16/24 19:57 Eos % (Auto) 0.7 % 01/16/24 19:57 Baso % (Auto) 0.6 % 01/16/24 19:57 Neut # (Auto) 7.19 10^3/uL (1.8-7.7) 01/16/24 19:57 Lymph # (Auto) 0.9 10^3/uL (0.8-4.8) 01/16/24 19:57 [place] # (Auto) 0.7 10^3/uL (0.2-0.9) 01/16/24 19:57 Eos # (Auto) 0.1 10^3/uL (0.0-0.8) 01/16/24 19:57 Baso # (Auto) 0.1 10^3/uL (0.0-0.1) 01/16/24 19:57 Nucleated RBC % (auto) 0 % 01/16/24 19:57 Nucleated RBCs # 0.0 /100WBC 01/16/24 19:57 Sodium 142 mmol/L (136-145) 01/16/24 19:57 Potassium 4.3 mmol/L (3.5-5.1) 01/16/24 19:57 Chloride 107 mmol/L (98-107) 01/16/24 19:57 Anion Gap 18.3 (5-19) 01/16/24 19:57 BUN 15 mg/dL (6-20) 01/16/24 19:57 Creatinine 1.2 mg/dL (0.7-1.2) 01/16/24 19:57 Glucose 106 mg/dL (65-115) 01/16/24 19:57 Calculated Osmolality 295 mOsm/kg (285-295) 01/16/24 19:57 Calcium 10.0 mg/dL (8.5-10.5) 01/16/24 19:57 Total Bilirubin 0.5 mg/dL (0.15-1.2) 01/16/24 19:57 AST 26 U/L (0-40) 01/16/24 19:57 ALT 37 U/L (0-41) 01/16/24 19:57 Alkaline Phosphatase 114 U/L (40-130) 01/16/24 19:57 Total Protein 7.7 g/dL (6.6-8.7) 01/16/24 19:57 Albumin 4.4 g/dL (3.5-5.2) 01/16/24 19:57 Globulin 3.3 g/dL (1.3-4.6) 01/16/24 19:57 Lipase 22 U/L (13-60) 01/16/24 19:57 No radiology studies performed this visit EKG Data EKG 1: I personally reviewed and interpreted this EKG as follows: EKG interpretation date: 01/16/24 EKG interpretation time: 19:43 Interpretation: sinus tach hr [address] elvation qrs 109 qtx 382 Discharge Plan Discharge Patient Disposition: Home Clinical Impression: Vomiting Condition: Stable Prescriptions: New ondansetron 4 mg tablet,disintegrating 4 mg PO Q6H PRN (Reason: nausea and vomiting) Qty: 14 0RF No Action acetaminophen [Tylenol Extra Strength] 500 mg tablet 500 mg PO TID PRN (Reason: pain) sertraline [Zoloft] 100 mg tablet 100 mg PO DAILY Qty: 7 0RF Rx Instructions: 100mg daily for 7 days then decrease to Zoloft 50mg daily for 7 days then stop. sertraline [Zoloft] 50 mg tablet 50 mg PO DAILY Qty: 7 0RF Rx Instructions: Decrease Zoloft to 100mg daily for 7 days then decrease to Zoloft 50mg daily for 7 days then stop. bupropion HCl 300 mg tablet extended release 24 hr See Rx Instructions .ROUTE .COMPLEX Qty: 30 2RF Dose Instruction: TAKE 1 TABLET BY MOUTH EVERY DAY Rx Instructions: TAKE 1 TABLET BY MOUTH EVERY DAY bupropion HCl 150 mg tablet extended release 24 hr 150 mg PO DAILY@09 Qty: 30 2RF quetiapine 200 mg tablet See Rx Instructions .ROUTE .COMPLEX Qty: 30 1RF Dose Instruction: TAKE 1 TABLET BY MOUTH AT BEDTIME Rx Instructions: TAKE 1 TABLET BY MOUTH AT BEDTIME ziprasidone HCl 60 mg capsule See Rx Instructions .ROUTE .COMPLEX Qty: 30 2RF Dose Instruction: take 1 capsule BY MOUTH EVERY DAY with food Rx Instructions: take 1 capsule BY MOUTH EVERY DAY with food sildenafil 50 mg tablet 100 mg PO TID PRN Rx Instructions: Take 1 tablet by mouth 3 times a day weekly as needed venlafaxine [Effexor XR] 37.5 mg capsule,extended release 24hr 37.5 mg PO DAILY Qty: 30 1RF mirtazapine [Remeron] 30 mg tablet 30 mg PO DAILY Qty: 30 1RF omeprazole 40 mg Capsule,Delayed Release(Dr/Ec) 40 mg PO BID@,21 Qty: 60 0RF Clear Eyes Complete 0.025-0.2-0.5 % Drops 1 drp OPHTHALMIC (EYE) QID PRN (Reason: Allergy Symptoms) cogdinvga-spczhlrx-pbaax-w.pet 0.25-1 % cream 1 applic SC QID PRN (Reason: rectal discomfort) Qty: 51 0RF ondansetron HCl 4 mg tablet 4 mg PO Q6H PRN (Reason: nausea and vomiting) Qty: 20 0RF metoclopramide HCl [Reglan] 10 mg tablet 10 mg PO Q6H PRN (Reason: nausea and vomiting) Qty: 20 0RF loratadine [Claritin] 10 mg Tablet 10 mg PO DAILY PRN (Reason: Allergy Symptoms) multivitamin with folic acid [Daily-Shabbir (with folic acid)] 400 mcg tablet 1 tab PO DAILY@21 calcium carbonate 500 mg calcium (1,250 mg) Tablet,Chewable 500 mg PO Q4H PRN (Reason: Stomach Upset) mupirocin 2 % ointment 1 applic topical BID Qty: 22 0RF Discharge Orders: Discharge ED (Routine); Ordered 01/16/24 Ordered By: Aga Berry Referrals: Kenneth Bravo DO [Primary Care Provider] - 4-7 days Discharge Diet: Advance as tolerated Discharge Activity: Resume usual activity Patient Instructions: Acute Nausea and Vomiting (ED) Coding Level of Care Code ED Wood Crew 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
[2024-01-16] MEDS: sodium chloride 0.9% 1,000 ML 999 ML IV (20:04)
[2024-01-16 20:07] LABS: Basophils # 0.1 10^3/uL (0.0-0.1); Basophils % 0.6 %; Eosinophils # 0.1 10^3/uL (0.0-0.8); Eosinophils % 0.7 %; Hematocrit 49.6 % (37-53); Lymphocytes # 0.9 10^3/uL (0.8-4.8); Lymphocytes % 9.9 %; Mean Corpuscular HGB Conc 34.5 g/dL (30-55); Mean Corpuscular Hemoglobin 30.1 pg (27-33); Mean Corpuscular Volume 87.2 fl (82-101); Monocytes # 0.7 10^3/uL (0.2-0.9); Monocytes % 7.9 %; Neutrophils # 7.19 10^3/uL (1.8-7.7); Neutrophils % 80.7 %; Nucleated Red Blood Cells % 0 %; Platelet Count 198 10^3/cmm (157-399); Red Blood Count 5.69 10^6/uL (3.85-5.65); Red Cell Distribution Width 11.9 % (12.1-15.1)
[2024-01-16 20:32] LABS: Alanine Aminotransferase 37 U/L (0-41); Albumin Level 4.4 g/dL (3.5-5.2); Alkaline Phosphatase 114 U/L (40-130); Anion Gap 18.3 (5-19); Aspartate Amino Transferase 26 U/L (0-40); Blood Urea Nitrogen 15 mg/dL (6-20); Carbon Dioxide 21 mmol/L (22-29); Chloride 107 mmol/L (98-107); Globulin 3.3 g/dL (1.3-4.6); Glomerular Filtration Rate 71.6 mL/min (90-130); Glucose 106 mg/dL (65-115); Lipase 22 U/L (13-60); Osmolality Calculated 295 mOsm/kg (285-295); Potassium 4.3 mmol/L (3.5-5.1); Sodium 142 mmol/L (136-145); Total Bilirubin 0.5 mg/dL (0.15-1.2); Total Protein 7.7 g/dL (6.6-8.7)
[2024-01-16 21:20] VITALS: BP 148/94; PULSE 113; O2SAT 95
== END 2024-01-16 21:24 | disposition home or self-care (01) ==
PROVIDERS: Emergency Provider Emergency Medicine; PCP Internal Medicine
DX: R11.10 Vomiting, unspecified (principal)
CPT/HCPCS: 36415; 80053; 83690; 85025; 93005; 99284; J7030

== ENCOUNTER 2024-02-04 13:48 | Emergency (ER) | payer MEDICAID, SELFPAY ==
[2024-02-04 13:48] VITALS: BP 128/86; PULSE 112; RESP 16; TEMP 36.7; O2SAT 93
[2024-02-04 14:11] LABS: Basophils % 0.4 %; Eosinophils # 0.1 10^3/uL (0.0-0.8); Eosinophils % 0.8 %; Hematocrit 47.5 % (37-53); Lymphocytes % 10.6 %; Mean Corpuscular HGB Conc 34.5 g/dL (30-55); Monocytes # 0.5 10^3/uL (0.2-0.9); Neutrophils # 8.14 10^3/uL (1.8-7.7); Nucleated Red Blood Cells % 0 %; Platelet Count 204 10^3/cmm (157-399); Red Blood Count 5.46 10^6/uL (3.85-5.65); White Blood Count 9.81 10^3/uL (3.29-11.43)
[2024-02-04 14:30] LABS: Alanine Aminotransferase 54 U/L (0-41); Albumin Level 4.3 g/dL (3.5-5.2); Alkaline Phosphatase 111 U/L (40-130); Anion Gap 13.4 (5-19); Aspartate Amino Transferase 23 U/L (0-40); Blood Urea Nitrogen 11 mg/dL (6-20); Calcium 9.2 mg/dL (8.5-10.5); Carbon Dioxide 25 mmol/L (22-29); Chloride 106 mmol/L (98-107); Glomerular Filtration Rate 88.3 mL/min (90-130); Glucose 111 mg/dL (65-115); Lipase 26 U/L (13-60); Osmolality Calculated 290 mOsm/kg (285-295); Potassium 4.4 mmol/L (3.5-5.1); Sodium 140 mmol/L (136-145); Total Bilirubin 0.6 mg/dL (0.15-1.2); Total Protein 7.3 g/dL (6.6-8.7)
--- NOTE | 2024-02-04 14:48 | ED_ITS ---
HPI - Nausea/Vomiting/Diarrhea 2 General: Chief complaint: Nausea/Vomiting/Diarrhea Stated complaint: vomiting/diarrhea Time Seen by Provider: 02/04/24 14:44 Source: patient Mode of arrival: ambulatory Limitations: no limitations History of Present Illness: Patient is a 28-year-old male who is well-known to our emergency department here for vomiting that began this morning. Patient lives in a skilled nursing/ISL and his caregiver is also ill with nausea, vomiting, diarrhea. Patient states he has not had any diarrhea. He is not having any abdominal pain or fevers. States he took some Zofran earlier this morning which did not really seem to help with his nausea. He was able to hold down flavored water without vomiting. MD elicited complaint: nausea and vomiting Onset (ago): hour(s) Associated nausea: Yes Associated abdominal pain: No Location of pain: None Severity: mild Exacerbating factors: eating Relieving factors: none Context: other (sick contact) Associated symtoms: Reports nausea; Denies chest pain, dizziness, dysuria, fatigue, headache(s) or malaise Related Data Home Medications Medication Instructions Recorded Confirmed acetaminophen 500 mg tablet 500 mg PO TID PRN pain 02/13/19 12/23/23 (Tylenol Extra Strength) calcium carbonate 500 mg PO Q4H PRN Stomach Upset 10/06/21 12/23/23 loratadine 10 mg tablet (Claritin) 10 mg PO DAILY PRN Allergy Symptoms 10/06/21 12/23/23 multivitamin with folic acid 400 1 tab PO DAILY@21 10/06/21 12/23/23 mcg tablet (Daily-Shabbir (with folic acid)) naphazo HCl 0.025 %-hyprome 0.2 1 drp ophthalmic (eye) QID PRN 12/22/21 12/23/23 %-ps 80 0.5 %-Zn sulf 0.25 % eye Allergy Symptoms drops (Clear Eyes Complete) sildenafil 50 mg tablet 100 mg PO TID PRN 10/19/22 12/23/23 Previous Rx's Medication Instructions Recorded metoclopramide HCl 10 mg tablet 10 mg PO Q6H PRN nausea and 05/23/21 (Reglan) vomiting #20 tabs omeprazole 40 mg capsule,delayed 40 mg PO BID@ #60 caps 12/21/21 release phenylephrine 0.25 %-pramoxine 1 1 applic RI QID PRN rectal 06/16/22 %-glycerin-wh.petrolatum rectal discomfort #51 grams cream ondansetron HCl 4 mg tablet 4 mg PO Q6H PRN nausea and 02/16/23 vomiting #20 tabs mupirocin 2 % topical ointment 1 applic topical BID #22 grams 04/15/23 bupropion HCl 150 mg 24 hr tablet, 150 mg PO DAILY@09 #30 tabs 12/23/23 extended release bupropion HCl 300 mg 24 hr tablet, See Rx Instructions .Route 12/23/23 extended release .COMPLEX #30 tabs quetiapine 200 mg tablet See Rx Instructions .Route 12/23/23 .COMPLEX #30 tabs sertraline 100 mg tablet (Zoloft) 100 mg PO DAILY #7 tabs 12/23/23 sertraline 50 mg tablet (Zoloft) 50 mg PO DAILY #7 tabs 12/23/23 ziprasidone HCl 60 mg capsule See Rx Instructions .Route 12/23/23 .COMPLEX #30 caps mirtazapine 30 mg tablet (Remeron) 30 mg PO DAILY #30 tabs 12/31/23 venlafaxine 37.5 mg 37.5 mg PO DAILY #30 caps 12/31/23 capsule,extended release 24 hr (Effexor XR) ondansetron 4 mg disintegrating 4 mg PO Q6H PRN nausea and 01/16/24 tablet vomiting #14 tabs Allergies Allergy/AdvReac Type Severity Reaction Status Date / Time haloperidol [From Haldol] Allergy Unknown Verified 02/04/24 13:52 methylphenidate Allergy Unknown Verified 02/04/24 13:52 [From Ritalin] Review of Systems 2 Const: Denies: fever(s), chills, body aches, fatigue or malaise Card: Denies: chest pain Resp: Denies: dyspnea GI: Reports: nausea and vomiting; Denies: abdominal pain, diarrhea or change in bowel habits : Denies: flank pain, difficulty urinating, dysuria, urinary frequency, urinary urgency or urinary hesitancy Skin/Breast: Denies: rash Neuro: Denies: headache(s) or dizziness PFSH ED 2 PFSH: Medical History On combination antipsychotic drug therapy Psychiatric care Major depressive disorder, recurrent, moderate Disruptive mood dysregulation disorder Autistic disorder Surgical History H/O esophagogastroduodenoscopy (05/30/21) History of foot surgery right- 2020 Social History Smoking and tobacco/nicotine status: never used tobacco/nicotine Physical Exam 2 Const: COMMON NORMALS: no acute distress, patient oriented x3, no limitations, alert and well nourished GENERAL APPEARANCE: cooperative NUTRITIONAL APPEARANCE: obese ORIENTATION/CONSCIOUSNESS: Yes awake, Yes oriented to person, Yes oriented to place and Yes oriented to time Eye: COMMON NORMALS: no scleral icterus Resp: COMMON NORMALS: normal respiratory effort and clear to auscultation bilaterally AUSCULTATION: clear to auscultation bilaterally Cardio: COMMON NORMALS: regular rate and regular rhythm RATE: regular rate RHYTHM: regular rhythm GI: COMMON NORMALS: Normal to inspection, nondistended, normoactive bowel sounds present, Soft to palpation, non-tender, No hepatosplenomegaly present and no masses PALPATION: Yes Soft to palpation and Yes No hepatosplenomegaly present : COMMON NORMALS: Yes no CVA tenderness BLADDER/KIDNEY EXAM: Yes no CVA tenderness Back/Pelvis: COMMON NORMALS: no CVA tenderness Extremity: GENERAL: Yes normal exam except as noted Neuro: COMMON NORMALS: patient oriented x3, moves all extremities, no focal motor deficits, no sensory deficits noted and gait normal S ENSORIUM/ORIENTATION: Yes alert, Yes oriented to person, Yes oriented to place and Yes oriented to time Skin: COMMON NORMALS: no rashes or lesions noted GENERAL SKIN EXAM: no rashes or lesions noted Course 2 Vital Signs: Vital signs: Vital Signs Temperature 98.1 F 02/04/24 13:48 Pulse Rate 84 02/04/24 15:15 Respiratory Rate 16 02/04/24 13:48 Blood Pressure 116/76 02/04/24 15:15 Pulse Oximetry 98 02/04/24 15:15 Oxygen Delivery Me thod Room Air 02/04/24 13:48 MDM - Nausea/Vomiting/Diarrhea Medical Decision Making Patient clinically appears in no acute distress. His vital signs are stable. Blood work is nonactionable. Patient was given PO Reglan here. He has not had any vomiting or diarrhea while here. Abdomen is nontender. Patient will be allowed discharge. Discussed conservative therapies at home. Return precautions discussed. Differential Diagnosis Likely food poisoning and gastroenteritis Medical Records I reviewed the patient's medical records. Lab Data I reviewed the patient's lab results. 02/04/24 14:06 02/04/24 14:06 Laboratory Results WBC 9.81 10^3/uL (3.29-11.43) 02/04/24 14:06 RBC 5.46 10^6/uL (3.85-5.65) 02/04/24 14:06 Hgb 16.40 g/dL (11.27-16.99) 02/04/24 14:06 Hct 47.5 % (37-53) 02/04/24 14:06 MCV 87.0 fl (82-101) 02/04/24 14:06 MCH 30.0 pg (27-33) 02/04/24 14:06 MCHC 34.5 g/dL (30-55) 02/04/24 14:06 RDW 12.0 % (12.1-15.1) L 02/04/24 14:06 Plt Count 204 10^3/cmm (157-399) 02/04/24 14:06 MPV 10.0 fL (7.4-10.4) 02/04/24 14:06 Neut % (Auto) 83.0 % 02/04/24 14:06 Lymph % (Auto) 10.6 % 02/04/24 14:06 [place] % (Auto) 5.0 % 02/04/24 14:06 Eos % (Auto) 0.8 % 02/04/24 14:06 Baso % (Auto) 0.4 % 02/04/24 14:06 Neut # (Auto) 8.14 10^3/uL (1.8-7.7) H 02/04/24 14:06 Lymph # (Auto) 1.0 10^3/uL (0.8-4.8) 02/04/24 14:06 [place] # (Auto) 0.5 10^3/uL (0.2-0.9) 02/04/24 14:06 Eos # (Auto) 0.1 10^3/uL (0.0-0.8) 02/04/24 14:06 Baso # (Auto) 0.0 10^3/uL (0.0-0.1) 02/04/24 14:06 Nucleated RBC % (auto) 0 % 02/04/24 14:06 Nucleated RBCs # 0.0 /100WBC 02/04/24 14:06 Sodium 140 mmol/L (136-145) 02/04/24 14:06 Potassium 4.4 mmol/L (3.5-5.1) 02/04/24 14:06 Chloride 106 mmol/L (98-107) 02/04/24 14:06 Carbon Dioxide 25 mmol/L (22-29) 02/04/24 14:06 Anion Gap 13.4 (5-19) 02/04/24 14:06 BUN 11 mg/dL (6-20) 02/04/24 14:06 Creatinine 1.0 mg/dL (0.7-1.2) 02/04/24 14:06 GFR Calculation 88.3 mL/min (90-130) L 02/04/24 14:06 Glucose 111 mg/dL (65-115) 02/04/24 14:06 Calculated Osmolality 290 mOsm/kg (285-295) 02/04/24 14:06 Calcium 9.2 mg/dL (8.5-10.5) 02/04/24 14:06 Total Bilirubin 0.6 mg/dL (0.15-1.2) 02/04/24 14:06 AST 23 U/L (0-40) 02/04/24 14:06 ALT 54 U/L (0-41) H 02/04/24 14:06 Alkaline Phosphatase 111 U/L (40-130) 02/04/24 14:06 Total Protein 7.3 g/dL (6.6-8.7) 02/04/24 14:06 Albumin 4.3 g/dL (3.5-5.2) 02/04/24 14:06 Globulin 3.0 g/dL (1.3-4.6) 02/04/24 14:06 Lipase 26 U/L (13-60) 02/04/24 14:06 No radiology studies performed this visit Discharge Plan Discharge Patient Disposition: Home Clinical Impression: Gastroenteritis Condition: Stable Prescriptions: No Action acetaminophen [Tylenol Extra Strength] 500 mg tablet 500 mg PO TID PRN (Reason: pain) sertraline [Zoloft] 100 mg tablet 100 mg PO DAILY Qty: 7 0RF Rx Instructions: 100mg daily for 7 days then decrease to Zoloft 50mg daily for 7 days then stop. sertraline [Zoloft] 50 mg tablet 50 mg PO DAILY Qty: 7 0RF Rx Instructions: Decrease Zoloft to 100mg daily for 7 days then decrease to Zoloft 50mg daily for 7 days then stop. bupropion HCl 300 mg tablet extended release 24 hr See Rx Instructions .ROUTE .COMPLEX Qty: 30 2RF Dose Instruction: TAKE 1 TABLET BY MOUTH EVERY DAY Rx Instructions: TAKE 1 TABLET BY MOUTH EVERY DAY bupropion HCl 150 mg tablet extended release 24 hr 150 mg PO DAILY@09 Qty: 30 2RF quetiapine 200 mg tablet See Rx Instructions .ROUTE .COMPLEX Qty: 30 1RF Dose Instruction: TAKE 1 TABLET BY MOUTH AT BEDTIME Rx Instructions: TAKE 1 TABLET BY MOUTH AT BEDTIME ziprasidone HCl 60 mg capsule See Rx Instructions .ROUTE .COMPLEX Qty: 30 2RF Dose Instruction: take 1 capsule BY MOUTH EVERY DAY with food Rx Instructions: take 1 capsule BY MOUTH EVERY DAY with food sildenafil 50 mg tablet 100 mg PO TID PRN Rx Instructions: Take 1 tablet by mouth 3 times a day weekly as needed venlafaxine [Effexor XR] 37.5 mg capsule,extended release 24hr 37.5 mg PO DAILY Qty: 30 1RF mirtazapine [Remeron] 30 mg tablet 30 mg PO DAILY Qty: 30 1RF omeprazole 40 mg Capsule,Delayed Release(Dr/Ec) 40 mg PO BID@,21 Qty: 60 0RF Clear Eyes Complete 0.025-0.2-0.5 % Drops 1 drp OPHTHALMIC (EYE) QID PRN (Reason: Allergy Symptoms) kqwtutlty-uynhxeht-aizqk-w.pet 0.25-1 % cream 1 applic RI QID PRN (Reason: rectal discomfort) Qty: 51 0RF ondansetron HCl 4 mg tablet 4 mg PO Q6H PRN (Reason: nausea and vomiting) Qty: 20 0RF metoclopramide HCl [Reglan] 10 mg tablet 10 mg PO Q6H PRN (Reason: nausea and vomiting) Qty: 20 0RF loratadine [Claritin] 10 mg Tablet 10 mg PO DAILY PRN (Reason: Allergy Symptoms) multivitamin with folic acid [Daily-Shabbir (with folic acid)] 400 mcg tablet 1 tab PO DAILY@21 calcium carbonate 500 mg calcium (1,250 mg) Tablet,Chewable 500 mg PO Q4H PRN (Reason: Stomach Upset) mupirocin 2 % ointment 1 applic topical BID Qty: 22 0RF ondansetron 4 mg tablet,disintegrating 4 mg PO Q6H PRN (Reason: nausea and vomiting) Qty: 14 0RF Discharge Orders: Discharge ED (Routine); Ordered 02/04/24 Ordered By: Evette Casper Referrals: Kenneth Bravo DO [Primary Care Provider] - Patient Instructions: Gastroenteritis (DC) Activity Restrictions/Additional Instructions: As we discussed, symptoms are most likely consistent with a gastroenteritis. These are usually self-limited and treatment is conservative. He already has anti-emetics he can continue to take as needed. Push fluids as much as possible to avoid dehydration. He may return to the emergency department for onset of fevers, severe abdominal pain, concerns for severe dehydration, or any other concerns you may have. Coding Level of Care Code ED Colliery Clerk for Alva Che
[2024-02-04] MEDS: metoclopramide 10 mg Tablet PO (15:13)
[2024-02-04 15:15] VITALS: BP 116/76; PULSE 84; O2SAT 98
== END 2024-02-04 15:23 | disposition home or self-care (01) ==
PROVIDERS: Emergency Medicine; Emergency Provider Physician Assistant; PCP Internal Medicine
DX: K52.9 Noninfective gastroenteritis and colitis, unspecified (principal)
CPT/HCPCS: 36415; 80053; 83690; 85025; 99283; J8597

== ENCOUNTER 2024-02-04 17:34 | Inpatient (IN) | payer MEDICAID, SELFPAY ==
[2024-02-04 17:36] VITALS: BP 136/91; PULSE 114; RESP 20; O2SAT 98
--- NOTE | 2024-02-04 17:45 | ED.C_ITS ---
HPI - Psych 2 General: Chief Complaint: Psychiatric Symptoms Stated Complaint: si/vomiting Time Seen by Provider: 02/04/24 17:34 Source: patient and EMS Mode of arrival: EMS Limitations: no limitations History of Present Illness: 28-year-old male who states he has been having suicidal thoughts he states that he has a plan of slitting his wrist with glass. Patient denies any worse improved factors. He states he is also been having abdominal pains are going on for days denies any fevers. Associated symptoms: Reports depression and suicidal ideation Related Data Home Medications Medication Instructions Recorded Confirmed acetaminophen 500 mg tablet 500 mg PO TID PRN pain 02/13/19 12/23/23 (Tylenol Extra Strength) calcium carbonate 500 mg PO Q4H PRN Stomach Upset 10/06/21 12/23/23 loratadine 10 mg tablet (Claritin) 10 mg PO DAILY PRN Allergy Symptoms 10/06/21 12/23/23 multivitamin with folic acid 400 1 tab PO DAILY@21 10/06/21 12/23/23 mcg tablet (Daily-Shabbir (with folic acid)) naphazo HCl 0.025 %-hyprome 0.2 1 drp ophthalmic (eye) QID PRN 12/22/21 12/23/23 %-ps 80 0.5 %-Zn sulf 0.25 % eye Allergy Symptoms drops (Clear Eyes Complete) sildenafil 50 mg tablet 100 mg PO TID PRN 10/19/22 12/23/23 Previous Rx's Medication Instructions Recorded metoclopramide HCl 10 mg tablet 10 mg PO Q6H PRN nausea and 05/23/21 (Reglan) vomiting #20 tabs omeprazole 40 mg capsule,delayed 40 mg PO BID@ #60 caps 12/21/21 release phenylephrine 0.25 %-pramoxine 1 1 applic [place] QID PRN rectal 06/16/22 %-glycerin-wh.petrolatum rectal discomfort #51 grams cream ondansetron HCl 4 mg tablet 4 mg PO Q6H PRN nausea and 02/16/23 vomiting #20 tabs mupirocin 2 % topical ointment 1 applic topical BID #22 grams 04/15/23 bupropion HCl 150 mg 24 hr tablet, 150 mg PO DAILY@ #30 tabs 12/23/23 extended release bupropion HCl 300 mg 24 hr tablet, See Rx Instructions .Route 12/23/23 extended release .COMPLEX #30 tabs quetiapine 200 mg tablet See Rx Instructions .Route 12/23/23 .COMPLEX #30 tabs sertraline 100 mg tablet (Zoloft) 100 mg PO DAILY #7 tabs 12/23/23 sertraline 50 mg tablet (Zoloft) 50 mg PO DAILY #7 tabs 12/23/23 ziprasidone HCl 60 mg capsule See Rx Instructions .Route 12/23/23 .COMPLEX #30 caps mirtazapine 30 mg tablet (Remeron) 30 mg PO DAILY #30 tabs 12/31/23 venlafaxine 37.5 mg 37.5 mg PO DAILY #30 caps 12/31/23 capsule,extended release 24 hr (Effexor XR) ondansetron 4 mg disintegrating 4 mg PO Q6H PRN nausea and 01/16/24 tablet vomiting #14 tabs Allergies Allergy/AdvReac Type Severity Reaction Status Date / Time haloperidol [From Haldol] Allergy Unknown Verified 02/04/24 13:52 methylphenidate Allergy Unknown Verified 02/04/24 13:52 [From Ritalin] Review of Systems 2 Const: Denies: fever(s), chills, body aches or change in appetite ENMT: Denies: throat pain or dental pain Card: Denies: chest pain Resp: Denies: dyspnea GI: Denies: abdominal pain, nausea, vomiting or diarrhea Musc: Denies: neck pain or back pain Skin/Breast: Denies: rash Neuro: Denies: headache(s) Psych: Reports: depression and suicidal ideation PFSH ED 2 PFSH: Medical History On combination antipsychotic drug therapy Psychiatric care Major depressive disorder, recurrent, moderate Disruptive mood dysregulation disorder Autistic disorder Surgical History H/O esophagogastroduodenoscopy (05/30/21) History of foot surgery right- 2020 Social History Smoking and tobacco/nicotine status: never used tobacco/nicotine Physical Exam 2 Const: COMMON NORMALS: no acute distress, patient oriented x3 and healthy appearing HENMT: COMMON NORMALS: normocephalic and atraumatic HEAD & SCALP: n ormocephalic and atraumatic Eye: COMMON NORMALS: conjunctivae normal CONJUNCTIVA: Yes conjunctivae normal Neck/C-Spine: COMMON NORMALS: full ROM and supple Chest: COMMONS NORMALS: normal inspection of the chest Resp: COMMON NORMALS: normal respiratory effort Cardio: COMMON NORMALS: regular rate RATE: regular rate Extremity: COMMON NORMALS: normal to inspection and full ROM Neuro: COMMON NORMALS: patient oriented x3, moves all extremities and no focal motor deficits Psych: COMMON NORMALS: mental status grossly normal, Normal thought process present and cooperative THOUGHT PROCESS: Normal thought process present T HOUGHT CONTENT: Yes Suicidality present Skin: COMMON NORMALS: no rashes or lesions noted and no wounds GENERAL SKIN EXAM: no rashes or lesions noted Course 2 Vital Signs: Vital signs: Vital Signs Pulse Rate 114 H 02/04/24 17:36 Respiratory Rate 20 H 02/04/24 17:36 Blood Pressure 136/91 02/04/24 17:36 Pulse Oximetry 98 02/04/24 17:[address] [facility] - Psych Medical Decision Making Patient presents here with suicidal ideations he is medically cleared I spoke to Dr. Howell will admit at this time. Lab Data I reviewed the patient's lab results. 02/04/24 17:56 02/04/24 17:56 Laboratory Results WBC 10.60 10^3/uL (3.29-11.43) 02/04/24 17:56 RBC 5.60 10^6/uL (3.85-5.65) 02/04/24 17:56 Hgb 16.70 g/dL (11.27-16.99) 02/04/24 17:56 Hct 48.1 % (37-53) 02/04/24 17:56 MCV 85.9 fl (82-101) 02/04/24 17:56 MCH 29.8 pg (27-33) 02/04/24 17:56 MCHC 34.7 g/dL (30-55) 02/04/24 17:56 RDW 11.9 % (12.1-15.1) L 02/04/24 17:56 Plt Count 214 10^3/cmm (157-399) 02/04/24 17:56 MPV 10.0 fL (7.4-10.4) 02/04/24 17:56 Neut % (Auto) 83.8 % 02/04/24 17:56 Lymph % (Auto) 9.4 % 02/04/24 17:56 Gaines % (Auto) 4.9 % 02/04/24 17:56 Eos % (Auto) 1.1 % 02/04/24 17:56 Baso % (Auto) 0.4 % 02/04/24 17:56 Neut # (Auto) 8.88 10^3/uL (1.8-7.7) H 02/04/24 17:56 Lymph # (Auto) 1.0 10^3/uL (0.8-4.8) 02/04/24 17:56 Gaines # (Auto) 0.5 10^3/uL (0.2-0.9) 02/04/24 17:56 Eos # (Auto) 0.1 10^3/uL (0.0-0.8) 02/04/24 17:56 Baso # (Auto) 0.0 10^3/uL (0.0-0.1) 02/04/24 17:56 Nucleated RBC % (auto) 0 % 02/04/24 17:56 Nucleated RBCs # 0.0 /100WBC 02/04/24 17:56 Sodium 141 mmol/L (136-145) 02/04/24 17:56 Potassium 4.4 mmol/L (3.5-5.1) 02/04/24 17:56 Chloride 106 mmol/L (98-107) 02/04/24 17:56 Carbon Dioxide 25 mmol/L (22-29) 02/04/24 17:56 Anion Gap 14.4 (5-19) 02/04/24 17:56 BUN 13 mg/dL (6-20) 02/04/24 17:56 Creatinine 1.0 mg/dL (0.7-1.2) 02/04/24 17:56 GFR Calculation 88.3 mL/min (90-130) L 02/04/24 17:56 Glucose 107 mg/dL (65-115) 02/04/24 17:56 Calculated Osmolality 293 mOsm/kg (285-295) 02/04/24 17:56 Calcium 9.6 mg/dL (8.5-10.5) 02/04/24 17:56 Total Bilirubin 0.9 mg/dL (0.15-1.2) 02/04/24 17:56 AST 22 U/L (0-40) 02/04/24 17:56 ALT 54 U/L (0-41) H 02/04/24 17:56 Alkaline Phosphatase 104 U/L (40-130) 02/04/24 17:56 Total Protein 7.5 g/dL (6.6-8.7) 02/04/24 17:56 Albumin 4.3 g/dL (3.5-5.2) 02/04/24 17:56 Globulin 3.2 g/dL (1.3-4.6) 02/04/24 17:56 Salicylates 0.4 mg/dL (3-10) L 02/04/24 17:56 Urine Opiates Screen Negative ng/mL (Negative) 02/04/24 18:03 Acetaminophen < 5.0 ug/mL (10-30) L 02/04/24 17:56 Ur Barbiturates Screen Negative ng/mL (Negative) 02/04/24 18:03 Ur Phencyclidine Scrn Negative ng/mL (Negative) 02/04/24 18:03 Ur Amphetamines Screen Negative ng/mL (Negative) 02/04/24 18:03 U Benzodiazepines Scrn Negative ng/mL (Negative) 02/04/24 18:03 Urine Cocaine Screen Negative ng/mL (Negative) 02/04/24 18:03 U Marijuana (THC) Screen Negative ng/mL (Negative) 02/04/24 18:03 Ethyl Alcohol < 10 mg/dL (0-10) 02/04/24 17:56 No radiology studies performed this visit Discharge Plan Discharge Patient Disposition: Admitted As Inpatient Admit Provider: Ruben Howell Clinical Impression: Suicidal ideation Condition: Stable Coding Level of Care Code 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
[2024-02-04] MEDS: LORazepam 2 mg/mL INJ 1 mL IM (18:00)
[2024-02-04 18:01] LABS: Basophils % 0.4 %; Eosinophils # 0.1 10^3/uL (0.0-0.8); Eosinophils % 1.1 %; Hematocrit 48.1 % (37-53); Lymphocytes % 9.4 %; Mean Corpuscular HGB Conc 34.7 g/dL (30-55); Mean Corpuscular Hemoglobin 29.8 pg (27-33); Mean Corpuscular Volume 85.9 fl (82-101); Monocytes # 0.5 10^3/uL (0.2-0.9); Monocytes % 4.9 %; Neutrophils # 8.88 10^3/uL (1.8-7.7); Neutrophils % 83.8 %; Nucleated Red Blood Cells % 0 %; Platelet Count 214 10^3/cmm (157-399); Red Cell Distribution Width 11.9 % (12.1-15.1)
[2024-02-04 18:28] LABS: Amphetamines Screen Urine Negative (Negative); Barbiturates Screen Urine Negative (Negative); Benzodiazepines Screen Urine Negative (Negative); Cocaine Screen Urine Negative (Negative); Opiate Screen Urine Negative (Negative); PCP Screen Urine Negative (Negative); THC Screen Urine Negative (Negative)
[2024-02-04 18:29] LABS: Acetaminophen < 5.0 ug/mL (10-30); Alanine Aminotransferase 54 U/L (0-41); Albumin Level 4.3 g/dL (3.5-5.2); Alcohol Level < 10 mg/dL (0-10); Alkaline Phosphatase 104 U/L (40-130); Anion Gap 14.4 (5-19); Aspartate Amino Transferase 22 U/L (0-40); Blood Urea Nitrogen 13 mg/dL (6-20); Calcium 9.6 mg/dL (8.5-10.5); Carbon Dioxide 25 mmol/L (22-29); Chloride 106 mmol/L (98-107); Creatinine Clr Calc Pharmacy 172.7148; Globulin 3.2 g/dL (1.3-4.6); Glomerular Filtration Rate 88.3 mL/min (90-130); Glucose 107 mg/dL (65-115); Osmolality Calculated 293 mOsm/kg (285-295); Potassium 4.4 mmol/L (3.5-5.1); Salicylate 0.4 mg/dL (3-10); Sodium 141 mmol/L (136-145); Total Bilirubin 0.9 mg/dL (0.15-1.2); Total Protein 7.5 g/dL (6.6-8.7)
--- NOTE | 2024-02-04 19:34 | PC.NURSE ---
96 Hr Pt rights reviewed with patient @1800 with assistance of [facility] annual giving officer Raf. All education reviewed. No verbalized concerns or questions at this time Pt copy left @bedside with pt. Pt Provided a sandwich and soda until dinner tray arrived.
[2024-02-04 20:57] VITALS: BP 122/82; PULSE 145; RESP 14; TEMP 37.2; O2SAT 97
[2024-02-04 21:03] VITALS: BP 124/83; PULSE 132; RESP 16; O2SAT 99
[2024-02-04] MEDS: mirtazapine 30 mg Tablet PO (22:37)
[2024-02-04] MEDS: trazodone 50 mg Tablet PO (22:37)
[2024-02-04] MEDS: quetiapine 100 mg Tablet 200 MG PO (22:38)
[2024-02-04] MEDS: hyDROXYzine 25 mg Capsule 50 MG PO (22:38)
[2024-02-04] MEDS: metoclopramide 10 mg Tablet PO (22:43)
[2024-02-05] MEDS: promethazine 25 mg/mL SDV 1 mL 50 MG IM (01:14)
[2024-02-05 06:00] VITALS: BP 118/84; PULSE 119; RESP 14; TEMP 36.6; O2SAT 97
[2024-02-05] MEDS: multivitamin therapeutic Tablet 1 TAB PO (08:49)
[2024-02-05] MEDS: buPROPion XL (24 HR) 150 mg Tablet PO (08:49)
[2024-02-05] MEDS: venlafaxine ER (24HR) 37.5 mg Capsule PO (08:49)
[2024-02-05] MEDS: ziprasidone hcl 60 mg Capsule PO (08:49)
[2024-02-05] MEDS: buPROPion XL (24 HR) 300 mg Tablet PO (08:49)
[2024-02-05] MEDS: pantoprazole DR 40 mg Tablet PO ×2 (08:49→17:44)
--- NOTE | 2024-02-05 13:01 | W.PM.NPUH&PS ---
Providers/Chief Complaint Admitting Physician: Ruben Howell MD Primary Care Provider: Kenneth Bravo DO Chief Complaint: si/vomiting HPI NPU History of Present Illness Josh Colindres is a 28 year old male who presented to the emergency department with the following report: Chief Complaint: Psychiatric Symptoms Stated Complaint: si/vomiting Time Seen by Provider: 02/04/24 17:34 Source: patient and EMS Mode of arrival: EMS Limitations: no limitations History of Present Illness: 28-year-old male who states he has been having suicidal thoughts he states that he has a plan of slitting his wrist with glass. Patient denies any worse improved factors. He states he is also been having abdominal pains are going on for days denies any fevers. Associated symptoms: Reports depression and suicidal ideation. He was admitted to the neuropsychiatric unit for definitive treatment of those issues. He is well-known to [facility] through inpatient and outpatient services. His most recent outpatient visit with this provider was in December of this year. His most recent inpatient visit was in March 2022 and an excerpt of that discharge summary is included below for context. His presentation however is fairly consistent with past hospitalizations with intrusive thoughts about something leading to him having great distress and suicidal thinking. An excerpt of his last inpatient discharge summary is included for context and the lack of substantive changes. He presents today reporting that this is all a misunderstanding. He reports that in general he has been doing well since his last hospitalization that is noted below. He says that his medications have been working and that this was a poor choice on his part because he got angry. He reports that after he got angry he started making comments and threats. He reports the settings going to cut himself but had no intention to cut himself. He reports he reported some suicidal thoughts but denies that they actually existed and that he was just angry and not wanting to necessarily be there. He reports that the medications the outpatient team have him on are effective and he has no concerns. We discussed a plan to reach out to his facility and talk to them about what staffing concerns they might have and discuss a plan to monitor him and consider discharge within the next 48 hours. 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 He was admitted to the neuropsychiatric unit for further evaluation and treatment. The patient has had multiple visits to the emergency department over the past year after having episodes of agitation and anger where he would make threats towards various staff members. He reports that he has been diagnosed with Asperger's disorder and has been residing in an independent living facility under [facility] since 2014. He reports that much of his frustration has to do with depression that has been present for several months. He reports a lack of interest in completing any activities. He reports low motivation and low energy. He reports having sleep continuity disruption. He did report that his depression had been improving and reports that he had been more hopeful. He denies any suicidal ideation but states that when he becomes upset he will make threats to hurt himself or others. The patient reports that he had previously struggled with having a sexual attraction to people's feet and had previously grabbed women's feet and had attempted to ask strangers about their shoes. He reports that he had been prescribed intramuscular Depo-Provera for about 5 years ending in 2019. He reports that his sexual fetish and recurring obsessive thoughts about women's feet had declined substantially but he reports that he has been frustrated that he has had a permanent change in his libido as he had been unable to masturbate or become erect. He describes having his primary problems with engaging with others including engaging with potential sutures has been impaired despite normal levels of testosterone. He reports that he does not feel like he can be normal and reports that he has been struggling with managing his anger. Inpatient psychiatric history: He reports multiple inpatient hospitalizations with most recent hospitalization here at [facility] in June 2021. Outpatient psychiatric history: He is followed at [facility] outpatient behavioral health clinic with most recent visit approximately 1 month ago. Medical history: Gastritis Surgeries: Foot surgery Allergies: Haldol/Ritalin Medications: Remeron 15 mg at night, omeprazole 40 mg twice a day, Seroquel 200 mg at night, Geodon 40 mg at night, Wellbutrin 450 mg daily Drug and alcohol history: None Legal history: None Social history: The patient was born in [facility] and lived with his biological mother until the age of 6. He has no contact with his biological father. He reports having been placed in foster care and was eventually adopted by his foster mom's mother. He reports that he had problems with learning and dropped out of school in the 11th grade and has not obtained his GED. He had reported having problems with anger and agitation with the patient reporting no history of sexual physical or emotional abuse. He had acknowledged having been evaluated for having behavioral problems as a child. He has no known family psychiatric history noted. His legal guardian is currently a local civil attorney in [facility]. He has been living under the care of [facility] since 2014 where he does not work and does not attend a day program. Hospital Course Discharge Summary: During the hospitalization, patient had routine laboratory studies which were within normal limits except for few outliers. Additionally there was a general medical evaluation which was also within normal limits and revealed no new acute processes. At the time of discharge, lethality was denied and psychosis was resolving. Mood and anxiety were well managed. Patient endorsed a plan to avoid all drugs of abuse and follow-up with the aftercare recommendations of the treatment team. Patient was evaluated and deemed to be absent credible lethality, and had achieved the maximum benefit from an inpatient hospitalization, so was discharged. Medication adjustments included an increase in his Mirtazapine to 30mg at night and a decrease in Geodon to 20mg at night with recommendation to discontinue Geodon on outpatient basis. Meds NPU Home Medications Medication Instructions Recorded Confirmed Last Taken Type metoclopramide HCl 10 mg tablet 10 mg PO Q6H PRN nausea and 05/23/21 02/04/24 Unknown Rx (Reglan) vomiting #20 tabs calcium carbonate 500 mg PO Q4H PRN Stomach Upset 10/06/21 02/04/24 Unknown History loratadine 10 mg tablet (Claritin) 10 mg PO DAILY PRN Allergy Symptoms 10/06/21 02/04/24 Unknown History multivitamin with folic acid 400 1 tab PO DAILY 08/29/22 12/27/24 11/13/22 History mcg tablet (Daily-Shabbir (with folic acid)) naphazo HCl 0.025 %-hyprome 0.2 1 drp ophthalmic (eye) QID PRN 12/22/21 02/04/24 Unknown History %-ps 80 0.5 %-Zn sulf 0.25 % eye Allergy Symptoms drops (Clear Eyes Complete) phenylephrine 0.25 %-pramoxine 1 1 applic [place] QID PRN rectal 06/16/22 02/04/24 Unknown Rx %-glycerin-wh.petrolatum rectal discomfort #51 grams cream sertraline 100 mg tablet (Zoloft) 100 mg PO DAILY #7 tabs 12/23/23 02/04/24 Unknown Rx venlafaxine 37.5 mg 37.5 mg PO DAILY #30 caps 12/31/23 02/04/24 Unknown Rx capsule,extended release 24 hr (Effexor XR) bupropion HCl 150 mg 24 hr tablet, 150 mg PO DAILY 02/04/24 02/04/24 Unknown History extended release bupropion HCl 300 mg 24 hr tablet, 300 mg PO DAILY 02/04/24 02/04/24 Unknown History extended release (Wellbutrin XL) mirtazapine 30 mg tablet (Remeron) 30 mg PO BEDTIME 02/04/24 02/04/24 Unknown History omeprazole 40 mg capsule,delayed 40 mg PO BID 02/04/24 02/04/24 Unknown History release quetiapine 200 mg tablet (Seroquel) 200 mg PO BEDTIME 02/04/24 02/04/24 Unknown History ziprasidone HCl 60 mg capsule 60 mg PO DAILY 02/04/24 02/04/24 Unknown History (Mejia) Allergies Allergy/AdvReac Type Severity Reaction Status Date / Time haloperidol [From Haldol] Allergy Unknown Verified 02/04/24 13:52 methylphenidate Allergy Unknown Verified 02/04/24 13:52 [From Ritalin] PFSH NPU PFS: Medical History On combination antipsychotic drug therapy Psychiatric care Major depressive disorder, recurrent, moderate Disruptive mood dysregulation disorder Autistic disorder Surgical History H/O esophagogastroduodenoscopy (05/30/21) History of foot surgery right- 2020 Social History Smoking and tobacco/nicotine status: never used tobacco/nicotine Mental Status Exam MSE Comments: This is a tall obese white male, in green hospital scrubs with adequate grooming and eye contact. No abnormal movements except for mild psychomotor retardation. Cooperative with exam in no acute distress. Speech had normal rate and volume, with decreased prosody. Mood described as as fine and do not think I need to be here, affect congruent. Thought process organized, thought content: patient denied suicidal or homicidal ideation, there were no delusions reported or noted, he denied any auditory or visual hallucinations. Attention and concentration were intact, and memory appeared mostly reliable, but none were formally tested. He is alert and oriented x 3. Insight and judgment are limited. Impulse control is impaired. Intellectual ability appears limited. Vitals/I&O/Wt Last Vital Signs Temp 97.9 F 02/05/24 06:00 Pulse 119 H 02/05/24 06:00 Resp 14 02/05/24 06:00 BP 118/84 02/05/24 06:00 Pulse Ox 97 02/05/24 06:00 O2 Del Method Room Air 02/05/24 06:00 Weight last 48 hrs Weight 136.078 kg Data NPU 02/04/24 17:56 02/04/24 17:56 A&P Assessment and plan (1) Major depressive disorder, recurrent severe without psychotic features: (2) Disruptive mood dysregulation disorder: (3) Autistic disorder: Plan This is a 28-year-old, white male, with autism, major depressive disorder, recurrent, disruptive mood dysregulation disorder, who presents for admission after complaining about suicidal ideation but reporting now that he was just angry and denying any current symptoms. RECOMMENDATION AND PLAN: 1.? Continue current medication 2.? Therapeutic observation 15-minute checks on the unit 3.? Encourage individual, group and milieu therapies. 4.? Attempt to gather collateral information. 5. Identify whether this represents an acute decompensation or an impulsive moment to determine whether medication changes are necessary versus a therapeutic discharge. At this point tentative plan for discharge on Wednesday but will talk to his facility to see what their ability to accept him is over the next 48 hours. Involuntary Hold Information 96 Hour Hold: 96 Hour Involuntary Admission: No Attestations NPU Medical Necessity Statement*: Inpatient hospitalization is medically necessary and the clinically appropriate intervention at this time. We will monitor medications and make changes as indicated. Patient will be in the hospital for over two midnights. Likely length of stay is 2-4 days. Coding Level of Care Code Acute Code for Chg Fwd Diagnoses Major depressive disorder, recurrent severe without psychotic features F33.2 Disruptive mood dysregulation disorder F34.81 Autistic disorder F84.0
[2024-02-05 14:00] VITALS: BP 103/72; PULSE 105; RESP 16; TEMP 36.6; O2SAT 96
[2024-02-05] MEDS: trazodone 50 mg Tablet PO ×2 (21:19→22:41)
[2024-02-05] MEDS: quetiapine 100 mg Tablet 200 MG PO (21:19)
[2024-02-05] MEDS: mirtazapine 30 mg Tablet PO (21:19)
[2024-02-05 22:00] VITALS: BP 123/71; PULSE 110; RESP 12; TEMP 36.9; O2SAT 96
[2024-02-05] MEDS: hyDROXYzine 25 mg Capsule 50 MG PO (22:41)
[2024-02-06 06:00] VITALS: BP 113/79; PULSE 108; RESP 16; TEMP 36.8; O2SAT 96
[2024-02-06] MEDS: pantoprazole DR 40 mg Tablet PO ×2 (09:07→17:16)
[2024-02-06] MEDS: buPROPion XL (24 HR) 300 mg Tablet PO (09:07)
[2024-02-06] MEDS: multivitamin therapeutic Tablet 1 TAB PO (09:07)
[2024-02-06] MEDS: buPROPion XL (24 HR) 150 mg Tablet PO (09:07)
[2024-02-06] MEDS: ziprasidone hcl 60 mg Capsule PO (09:07)
[2024-02-06] MEDS: venlafaxine ER (24HR) 37.5 mg Capsule PO (09:07)
--- NOTE | 2024-02-06 10:53 | W.PM.NPUPNS ---
Subjective NPU Subjective: Patient presented today reporting that he is continuing to feel fine he continued to report his same attestation from yesterday that he is without mental health complaint at this time and that he had just made some angry comments. He endorsed that there were no side effects to the medication, that they were working well and that he was looking forward to hopefully discharging tomorrow. Mental Status Exam MSE Comments: This is a tall obese white male, in [facility] scrubs with adequate grooming and eye contact. No abnormal movements except for mild psychomotor retardation. Cooperative with exam in no acute distress. Speech had normal rate and volume, with decreased prosody. Mood described as as fine and do not think I need to be here, affect congruent. Thought process organized, thought content: patient denied suicidal or homicidal ideation, there were no delusions reported or noted, he denied any auditory or visual hallucinations. Attention and concentration were intact, and memory appeared mostly reliable, but none were formally tested. He is alert and oriented x 3. Insight and judgment are limited. Impulse control is impaired. Intellectual ability appears limited. Vitals/I&O/Wt Last Vital Signs Temp 98.2 F 02/06/24 06:00 Pulse 108 H 02/06/24 06:00 Resp 16 02/06/24 06:00 BP 113/79 02/06/24 06:00 Pulse Ox 96 02/06/24 06:00 O2 Del Method Room Air 02/06/24 06:00 Weight last 48 hrs Weight 141.067 kg Weight 136.078 kg Data NPU 02/04/24 17:56 02/04/24 17:56 A&P Assessment and plan (1) Major depressive disorder, recurrent severe without psychotic features: (2) Disruptive mood dysregulation disorder: (3) Autistic disorder: Plan This is a 28-year-old, white male, with autism, major depressive disorder, recurrent, disruptive mood dysregulation disorder, who presents for admission after complaining about suicidal ideation but reporting now that he was just angry and denying any current symptoms. RECOMMENDATION AND PLAN: 1.? Continue current medication 2.? Therapeutic observation 15-minute checks on the unit 3.? Encourage individual, group and milieu therapies. 4.? Attempt to gather collateral information. 5. Identify whether this represents an acute decompensation or an impulsive moment to determine whether medication changes are necessary versus a therapeutic discharge. At this point tentative plan for discharge on Wednesday.. Involuntary Hold Information 96 Hour Hold: 96 Hour Involuntary Admission: No Attestations NPU Medical Necessity Statement*: Inpatient hospitalization is medically necessary and the clinically appropriate intervention at this time. We will monitor medications and make changes as indicated. Patient will be in the hospital for over two midnights. Likely length of stay is 1-3 days. Coding Level of Care Code Acute Code for g Fwd Diagnoses Major depressive disorder, recurrent severe without psychotic features F33.2 Disruptive mood dysregulation disorder F34.81 Autistic disorder F84.0
[2024-02-06 14:00] VITALS: BP 121/81; PULSE 116; RESP 16; TEMP 36.8; O2SAT 94
[2024-02-06] MEDS: trazodone 50 mg Tablet PO ×2 (20:59→23:30)
[2024-02-06] MEDS: mirtazapine 30 mg Tablet PO (20:59)
[2024-02-06] MEDS: quetiapine 100 mg Tablet 200 MG PO (20:59)
[2024-02-06 21:21] VITALS: BP 131/87; PULSE 119; RESP 18; TEMP 37.2; O2SAT 96
[2024-02-07 06:00] VITALS: BP 114/74; PULSE 96; RESP 16; TEMP 36.7; O2SAT 98
[2024-02-07] MEDS: venlafaxine ER (24HR) 37.5 mg Capsule PO (08:28)
[2024-02-07] MEDS: pantoprazole DR 40 mg Tablet PO (08:28)
[2024-02-07] MEDS: buPROPion XL (24 HR) 300 mg Tablet PO (08:28)
[2024-02-07] MEDS: ziprasidone hcl 60 mg Capsule PO (08:28)
[2024-02-07] MEDS: buPROPion XL (24 HR) 150 mg Tablet PO (08:28)
[2024-02-07] MEDS: multivitamin therapeutic Tablet 1 TAB PO (08:28)
--- NOTE | 2024-02-07 12:36 | P.NPUDS_ITS ---
Diagnoses at Discharge Discharge Diagnosis (1) Major depressive disorder, recurrent severe without psychotic features: Status: Acute (2) Disruptive mood dysregulation disorder: Status: Acute (3) Autistic disorder: Status: Acute Reason for Visit Reason for Visit: si/vomiting Brief History: History of Present Illness Josh Colindres is a 28 year old male who presented to the emergency department with the following report: Chief Complaint: Psychiatric Symptoms Stated Complaint: si/vomiting Time Seen by Provider: 02/04/24 17:34 Source: patient and EMS Mode of arrival: EMS Limitations: no limitations History of Present Illness: 28-year-old male who states he has been having suicidal thoughts he states that he has a plan of slitting his wrist with glass. Patient denies any worse improved factors. He states he is also been having abdominal pains are going on for days denies any fevers. Associated symptoms: Reports depression and suicidal ideation. He was admitted to the neuropsychiatric unit for definitive treatment of those issues. He is well-known to [facility] through inpatient and outpatient services. His most recent outpatient visit with this provider was in December of this year. His most recent inpatient visit was in March 2022 and an excerpt of that discharge summary is included below for context. His presentation however is fairly consistent with past hospitalizations with intrusive thoughts about something leading to him having great distress and suicidal thinking. An excerpt of his last inpatient discharge summary is included for context and the lack of substantive changes. He presents today reporting that this is all a misunderstanding. He reports that in general he has been doing well since his last hospitalization that is noted below. He says that his medications have been working and that this was a poor choice on his part because he got angry. He reports that after he got angry he started making comments and threats. He reports the settings going to cut himself but had no intention to cut himself. He reports he reported some suicidal thoughts but denies that they actually existed and that he was just angry and not wanting to necessarily be there. He reports that the medications the outpatient team have him on are effective and he has no concerns. We discussed a plan to reach out to his facility and talk to them about what staffing concerns they might have and discuss a plan to monitor him and consider discharge within the next 48 hours. Per his 03/25/2022 [facility] inpatient psychiatric discharge summary: Discharge Diagnosis (1) Major depressive disorder, recurrent severe without psychotic features: Status: Acute (2) Disruptive mood dysregulation disord er: Status: Acute (3) Autistic disorder: Status: Acute Reason for Visit Reason for Visit: Suicidal ideation Brief History: History of Present Illness Josh Colindres is a 27 year old single white male with a history of multiple inpatient psychiatric hospitalizations most recently in June 2021 who presented with his 24-hour care worker to the emergency department after he had become aggressive towards his application development team lead and had threatened to shoot his application development team lead and had threatened to kill himself. He was admitted to the neuropsychiatric unit for further evaluation and treatment. The patient has had multiple visits to the emergency department over the past year after having episodes of agitation and anger where he would make threats towards various staff members. He reports that he has been diagnosed with Asperger's disorder and has been residing in an independent living facility under [facility] since 2014. He reports that much of his frustration has to do with depression that has been present for several months. He reports a lack of interest in completing any activities. He reports low motivation and low energy. He reports having sleep continuity disruption. He did report that his depression had been improving and reports that he had been more hopeful. He denies any suicidal ideation but states that when he becomes upset he will make threats to hurt himself or others. The patient reports that he had previously struggled with having a sexual attraction to people's feet and had previously grabbed women's feet and had attempted to ask strangers about their shoes. He reports that he had been prescribed intramuscular Depo-Provera for about 5 years ending in 2019. He reports that his sexual fetish and recurring obsessive thoughts about women's feet had declined substantially but he reports that he has been frustrated that he has had a permanent change in his libido as he had been unable to masturbate or become erect. He describes having his primary problems with engaging with others including engaging with potential sutures has been impaired despite normal levels of testosterone. He reports that he does not feel like he can be normal and reports that he has been struggling with managing his anger. Inpatient psychiatric history: He reports multiple inpatient hospitalizations with most recent hospitalization here at [facility] in June 2021. Outpatient psychiatric history: He is followed at [facility] outpatient behavioral health clinic with most recent visit approximately 1 month ago. Medical history: Gastritis Surgeries: Foot surgery Allergies: Haldol/Ritalin Medications: Remeron 15 mg at night, omeprazole 40 mg twice a day, Seroquel 200 mg at night, Geodon 40 mg at night, Wellbutrin 450 mg daily Drug and alcohol history: None Legal history: None Social history: The patient was born in [facility] and lived with his biological mother until the age of 6. He has no contact with his biological father. He reports having been placed in foster care and was eventually adopted by his foster mom's mother. He reports that he had problems with learning and dropped out of school in the 11th grade and has not obtained his GED. He had reported having problems with anger and agitation with the patient reporting no history of sexual physical or emotional abuse. He had acknowledged having been evaluated for having behavioral problems as a child. He has no known family psychiatric history noted. His legal guardian is currently a local speech language specialist in [facility]. He has been living under the care of [facility] since 2014 where he does not work and does not attend a day program. Hospital Course Discharge Summary: Hospital Course Hospital Course He quickly acclimated to the individual, group and milieu therapies provided. He is well-known to psychiatric services through inpatient and outpatient services and very quickly identified that the reports of lethality were made out of anger secondary to an interaction with his staff. From the moment he was on the unit he denied lethality and had no fluctuation in mood or any behavior that was demonstrative of any concern. Given his intermittent explosive nature we monitored him for safety and made no medication changes. The social work team work with him to make sure he had outpatient appointments in place. He had significant improvement during the stay compared to the initial reports. And he was able to contract for safety outside the hospital prior to discharge. During the hospitalization, patient had routine laboratory studies which were within normal limits except for few outliers. Additionally there was a general medical evaluation which was also within normal limits and revealed no new acute processes. At the time of discharge, he denied psychosis or lethality. Mood and anxiety were well managed. Patient endorsed a plan to avoid all drugs of abuse and follow-up with the aftercare recommendations of the treatment team. Patient was evaluated and deemed to be absent credible lethality, and had achieved the maximum benefit from an inpatient hospitalization, so was discharged. Involuntary Hold Information 96 Hour Hold: 96 Hour Involuntary Admission: No Mental Status Exam MSE Comments: This is a tall obese white male, in green hospital scrubs with adequate grooming and eye contact. No abnormal movements except for mild psychomotor retardation. Cooperative with exam in no acute distress. Speech had normal rate and volume, with decreased prosody. Mood described as as fine and do not think I need to be here, affect congruent. Thought process organized, thought content: patient denied suicidal or homicidal ideation, there were no delusions reported or noted, he denied any auditory or visual hallucinations. Attention and concentration were intact, and memory appeared mostly reliable, but none were formally tested. He is alert and oriented x 3. Insight and judgment are limited. Impulse control is impaired. Intellectual ability appears limited. Discharge Data Studies Completed and Pending: Laboratory Results WBC 10.60 10^3/uL (3. 29-11.43) 02/04/24 17:56 RBC 5.60 10^6/uL (3.8 5-5.65) 02/04/24 17:56 Hgb 16.70 g/dL (11.27 -16.99) 02/04/24 17:56 Hct 48.1 % (37-53) 02/04/24 17:56 MCV 85.9 fl (82-101) 02/04/24 17:56 MCH 29.8 pg (27-33) 02/04/24 17:56 MCHC 34.7 g/dL (30-55) 02/04/24 17:56 RDW 11.9 % (12.1-15.1 ) L 02/04/24 17:56 Plt Count 214 10^3/cmm (157 -399) 02/04/24 17:56 MPV 10.0 fL (7.4-10.4 ) 02/04/24 17:56 Neut % (Auto) 83.8 % 02/04/24 17:56 Lymph % (Auto) 9.4 % 02/04/24 17:56 Thayer % (Auto) 4.9 % 02/04/24 17:56 Eos % (Auto) 1.1 % 02/04/24 17:56 Baso % (Auto) 0.4 % 02/04/24 17:56 Neut # (Auto) 8.88 10^3/uL (1.8 -7.7) H 02/04/24 17:56 Lymph # (Auto) 1.0 10^3/uL (0.8- 4.8) 02/04/24 17:56 Thayer # (Auto) 0.5 10^3/uL (0.2- 0.9) 02/04/24 17:56 Eos # (Auto) 0.1 10^3/uL (0.0- 0.8) 02/04/24 17:56 Baso # (Auto) 0.0 10^3/uL (0.0- 0.1) 02/04/24 17:56 Nucleated RBC % (a uto) 0 % 02/04/24 17:56 Nucleated RBCs # 0.0 /100WBC 02/04/24 17:56 Sodium 141 mmol/L (136-1 45) 02/04/24 17:56 Potassium 4.4 mmol/L (3.5-5 .1) 02/04/24 17:56 Chloride 106 mmol/L (98-10 7) 02/04/24 17:56 Carbon Dioxide 25 mmol/L (22-29) 02/04/24 17:56 Anion Gap 14.4 (5-19) 02/04/24 17:56 BUN 13 mg/dL (6-20) 02/04/24 17:56 Creatinine 1.0 mg/dL (0.7-1. 2) 02/04/24 17:56 GFR Calculation 88.3 mL/min (90-1 30) L 02/04/24 17:56 Glucose 107 mg/dL (65-115 ) 02/04/24 17:56 Calculated Osmolal ity 293 mOsm/kg (285- 295) 02/04/24 17:56 Calcium 9.6 mg/dL (8.5-10 .5) 02/04/24 17:56 Total Bilirubin 0.9 mg/dL (0.15-1 .2) 02/04/24 17:56 AST 22 U/L (0-40) 02/04/24 17:56 ALT 54 U/L (0-41) H 02/04/24 17:56 Alkaline Phosphata se 104 U/L (40-130) 02/04/24 17:56 Total Protein 7.5 g/dL (6.6-8.7 ) 02/04/24 17:56 Albumin 4.3 g/dL (3.5-5.2 ) 02/04/24 17:56 Globulin 3.2 g/dL (1.3-4.6 ) 02/04/24 17:56 Salicylates 0.4 mg/dL (3-10) L 02/04/24 17:56 Urine Opiates Scre en Negative ng/mL (N egative) 02/04/24 18:03 Acetaminophen < 5.0 ug/mL (10-3 0) L 02/04/24 17:56 Ur Barbiturates Sc reen Negative ng/mL (N egative) 02/04/24 18:03 Ur Phencyclidine S crn Negative ng/mL (N egative) 02/04/24 18:03 Ur Amphetamines Sc reen Negative ng/mL (N egative) 02/04/24 18:03 U Benzodiazepines Scrn Negative ng/mL (N egative) 02/04/24 18:03 Urine Cocaine Scre en Negative ng/mL (N egative) 02/04/24 18:03 U Marijuana (THC) Screen Negative ng/mL (N egative) 02/04/24 18:03 Ethyl Alcohol < 10 mg/dL (0-10) 02/04/24 17:56 Vitals: Last Vital Signs Temp 98.1 F 02/07/24 06:00 Pulse 96 02/07/24 06:00 Resp 16 02/07/24 06:00 BP 114/74 02/07/24 06:00 Pulse Ox 98 02/07/24 06:00 O2 Del Method Room Air 02/07/24 06:00 Discharge Plan Discharge Patient Disposition: Home Condition: Stable Prescriptions: Continued venlafaxine [Effexor XR] 37.5 mg capsule,extended release 24hr 37.5 mg PO DAILY Qty: 30 1RF Clear Eyes Complete 0.025-0.2-0.5 % Drops 1 drp OPHTHALMIC (EYE) QID PRN (Reason: Allergy Symptoms) zuuwzxdev-qddpaxdw-ffcvs-w.pet 0.25-1 % cream 1 applic NV QID PRN (Reason: rectal discomfort) Qty: 51 0RF metoclopramide HCl [Reglan] 10 mg tablet 10 mg PO Q6H PRN (Reason: nausea and vomiting) Qty: 20 0RF loratadine [Claritin] 10 mg Tablet 10 mg PO DAILY PRN (Reason: Allergy Symptoms) multivitamin with folic acid [Daily-Shabbir (with folic acid)] 400 mcg tablet 1 tab PO DAILY calcium carbonate 500 mg calcium (1,250 mg) Tablet,Chewable 500 mg PO Q4H PRN (Reason: Stomach Upset) quetiapine [Seroquel] 200 mg tablet 200 mg PO BEDTIME omeprazole 40 mg capsule,delayed release(DR/EC) 40 mg PO BID mirtazapine [Remeron] 30 mg tablet 30 mg PO BEDTIME ziprasidone HCl [Geodon] 60 mg capsule 60 mg PO DAILY bupropion HCl [Wellbutrin XL] 300 mg tablet extended release 24 hr 300 mg PO DAILY Rx Instructions: take daily with 150mg tab bupropion HCl 150 mg tablet extended release 24 hr 150 mg PO DAILY Discontinued sertraline [Zoloft] 100 mg tablet 100 mg PO DAILY Qty: 7 0RF Rx Instructions: 100mg daily for 7 days then decrease to Zoloft 50mg daily for 7 days then stop. Discharge Orders: Discharge Order (Routine); Ordered 02/07/24 Ordered By: Ruben Howell Referrals: Lenora Lafleur PMHNP [Staff Physician] - 02/17/24 11:45 am (Follow up) Kenneth Bravo DO [Primary Care Provider] - Discharge Diet: Regular Discharge Activity: Resume usual activity Patient Instructions: Opioid Safety Discharge Attestations NPU Time Spent in Discharge Care*: less than 30 min Specific Discharge Activities: Specific discharge activities: educating patient, discussing with clinical case manager/social workers/dc planners, do cumenting/other paperwork and evaluating patient/reviewing data Status at Discharge: Cognitive status at discharge: cognitively intact , Behavioral status at discharge: cooperative , Coding Level of Care Code Acute Code for g Fwd Diagnoses Major depressive disorder, recurrent severe without psychotic features F33.2 Disruptive mood dysregulation disorder F34.81 Autistic disorder F84.0
[2024-02-07 13:02] VITALS: BP 114/74; PULSE 96; RESP 16; TEMP 36.7; O2SAT 98
== END 2024-02-07 13:45 | disposition home or self-care (01) | DRG 885 ==
LOC: ER 17:50 → NP 18:19
PROVIDERS: Admitting Provider Psychiatry & Neurology Psychiatry; Emergency Provider Emergency Medicine; PCP Internal Medicine; Visit Provider Psychiatry & Neurology Psychiatry
DX: F33.2 Major depressive disorder, recurrent severe without psychotic features (principal); R45.851 Suicidal ideations; F34.81 Disruptive mood dysregulation disorder; F84.0 Autistic disorder; E66.9 Obesity, unspecified; Z68.34 Body mass index [BMI] 34.0-34.9, adult
CPT/HCPCS: 36415; 80053; 80306; 80307; 85025; 96372; 99285; J2060; J2550; J8597

== ENCOUNTER 2024-04-01 11:44 | Inpatient (IN) | payer MEDICAID, SELFPAY ==
[2024-04-01 11:55] VITALS: BP 132/88; PULSE 107; RESP 20; TEMP 36.7; O2SAT 99
--- NOTE | 2024-04-01 11:59 | W.ED.PSYCHS ---
HPI - Psych General: Chief Complaint: Psychiatric Symptoms Stated Complaint: mhe Time Seen by Provider: 04/01/24 11:45 History of Present Illness: 29-year-old man with history of depression, autistic disorder and issues with psychosis who presents emergency room after having an explosive episode at the retirement he lives in. Apparently he had busted out windows and had poured some sort of oil on himself and threatened to burn himself in the house down. When the police arrived he asked them to shoot him in the head. When I talk to him he is very quiet and appears nonviolent at this time. He says he has anger issues and that is about all he will tell me. He goes back to reading his book Related Data Home Medications ?Medication ?Instructions ?Recorded ?Confirmed calcium carbonate 500 mg PO Q4H PRN Stomach Upset 10/06/21 03/17/24 loratadine 10 mg tablet (Claritin) 10 mg PO DAILY PRN Allergy Symptoms 10/06/21 03/17/24 multivitamin with folic acid 400 1 tab PO DAILY 10/06/21 03/17/24 mcg tablet (Daily-Shabbir (with folic acid)) naphazo HCl 0.025 %-hyprome 0.2 1 drp ophthalmic (eye) QID PRN 12/22/21 03/17/24 %-ps 80 0.5 %-Zn sulf 0.25 % eye Allergy Symptoms drops (Clear Eyes Complete) omeprazole 40 mg capsule,delayed 40 mg PO BID 02/04/24 03/17/24 release Previous Rx's ?Medication ?Instructions ?Recorded metoclopramide HCl 10 mg tablet 10 mg PO Q6H PRN nausea and 05/23/21 (Reglan) vomiting #20 tabs phenylephrine 0.25 %-pramoxine 1 1 applic CA QID PRN rectal 06/16/22 %-glycerin-wh.petrolatum rectal discomfort #51 grams cream ziprasidone HCl 60 mg capsule 60 mg PO DAILY #30 caps 02/14/24 (Geodon) bupropion HCl 150 mg 24 hr tablet, 150 mg PO DAILY #30 tabs 02/17/24 extended release bupropion HCl 300 mg 24 hr tablet, 300 mg PO DAILY #30 tabs 02/17/24 extended release (Wellbutrin XL) quetiapine 200 mg tablet (Seroquel) 200 mg PO BEDTIME #30 tabs 02/17/24 venlafaxine 150 mg 150 mg PO DAILY #30 caps 03/17/24 capsule,extended release 24 hr (Effexor XR) Allergies Allergy/AdvReac Type Severity Reaction Status Date / Time haloperidol (From Haldol) Allergy Unknown Verified 03/17/24 11:28 methylphenidate (From Allergy Unknown Verified 03/17/24 11:28 Ritalin) Review of Systems Narrative: Constitutional symptoms: Negative except as documented in HPI. Skin symptoms: Negative except as documented in HPI. Eye symptoms: Negative except as documented in HPI. ENMT symptoms: Negative except as documented in HPI. Respiratory symptoms: Negative except as documented in HPI. Cardiovascular symptoms: Negative except as documented in HPI. Gastrointestinal symptoms: Negative except as documented in HPI. Genitourinary symptoms: Negative except as documented in HPI. Musculoskeletal symptoms: Negative except as documented in HPI. Neurologic symptoms: Negative except as documented in HPI. Psychiatric symptoms: Negative except as documented in HPI. Endocrine symptoms: Negative except as documented in HPI. PFSH ED PFSH: Medical History On combination antipsychotic drug therapy Psychiatric care Major depressive disorder, recurrent, moderate Disruptive mood dysregulation disorder Autistic disorder Surgical History H/O esophagogastroduodenoscopy (05/30/21) History of foot surgery right- 2020 Social History Smoking and tobacco/nicotine status: never used tobacco/nicotine Physical Exam Narrative: EXAM NARRATIVE: General: Alert, no acute distress. Skin: Warm, dry. Head: Normocephalic, atraumatic. Neck: Supple, trachea midline. Eye: Extraocular movements are intact. Ears, nose, mouth and throat: mucosa moist. Cardiovascular: Regular, Normal peripheral perfusion. Respiratory: Lungs are clear to auscultation, respirations are non-labored, breath sounds are equal, Symmetrical chest wall expansion. Gastrointestinal: Soft, Nontender, Non distended Musculoskeletal: Normal ROM, no deformity. Neurological: Alert and oriented, No focal neurological deficit observed. Psychiatric: Cooperative, odd affect, patient endorses that he became angry and does not deny any of the accusations. Course Vital Signs: Vital signs: Vital Signs Temperature 98.0 F 04/01/24 11:55 Pulse Rate 107 H 04/01/24 11:55 Respiratory Rate 20 H 04/01/24 11:55 Blood Pressure 132/88 04/01/24 11:55 Pulse Oximetry 99 04/01/24 11:55 MDM - Psych Medical Decision Making Medical decision making: Differential diagnosis for patient with reported psychosis/behavioral issues/suicidal thoughts with plan for psychiatric admission including but not limited to and based on the above HPI, review of systems and physical exam: concerns for infection, alcohol intoxication, cardiac issues or other medical problems prior to psychiatric admission. Orders placed to evaluate differential diagnosis based on the above differential, HPI and physical exam labwork, ekg ordered to evaluate the pathologies and to clear the patient medically prior to psychiatric admission EKG: Time 1211. Rate 93. Normal sinus rhythm, No ST-T changes, no ectopy, normal CA & QRS intervals, This was reviewed and interpreted by myself the ER physician at 1215 Lab Review: Laboratory results were reviewed and interpreted by myself the emergency room physician. - Medically cleared. - EKG shows no ischemic changes. - Blood alcohol level is negative, as well as salicylate and Tylenol. - Drug screen is negative - No signs of infection, urinalysis clear and white count is not elevated - No anemia. - BUN and creatinine are within normal limits. I reviewed the patient's medical record. Consultation: I spoke with Dr. Howell who is on-call for psychiatry agrees to admission. Assessment and plan: Autism Suicidal ideation Anger issues ?96-hour hold placed. -Admission to neuropsychiatric unit for continued evaluation and treatment. - All lab work was reviewed and interpreted personally by myself, the ER physician - Evaluation and treatment of this problem were appropriate in the emergency setting Lab Data 04/01/24 12:19 04/01/24 12:19 Laboratory Results WBC 4.56 10^3/uL (3.29-11.43) 04/01/24 12:19 RBC 4.96 10^6/uL (3.85-5.65) 04/01/24 12:19 Hgb 14.70 g/dL (11.27-16.99) 04/01/24 12:19 Hct 43.1 % (37-53) 04/01/24 12:19 MCV 86.9 fl (82-101) 04/01/24 12:19 MCH 29.6 pg (27-33) 04/01/24 12:19 MCHC 34.1 g/dL (30-55) 04/01/24 12:19 RDW 11.9 % (12.1-15.1) L 04/01/24 12:19 Plt Count 201 10^3/cmm (157-399) 04/01/24 12:19 MPV 9.9 fL (7.4-10.4) 04/01/24 12:19 Neut % (Auto) 55.5 % 04/01/24 12:19 Lymph % (Auto) 31.4 % 04/01/24 12:19 Millard % (Auto) 9.6 % 04/01/24 12:19 Eos % (Auto) 2.2 % 04/01/24 12:19 Baso % (Auto) 0.9 % 04/01/24 12:19 Neut # (Auto) 2.53 10^3/uL (1.8-7.7) 04/01/24 12:19 Lymph # (Auto) 1.4 10^3/uL (0.8-4.8) 04/01/24 12:19 Millard # (Auto) 0.4 10^3/uL (0.2-0.9) 04/01/24 12:19 Eos # (Auto) 0.1 10^3/uL (0.0-0.8) 04/01/24 12:19 Baso # (Auto) 0.0 10^3/uL (0.0-0.1) 04/01/24 12:19 Nucleated RBC % (auto) 0 % 04/01/24 12:19 Nucleated RBCs # 0.0 /100WBC 04/01/24 12:19 Sodium 143 mmol/L (136-145) 04/01/24 12:19 Potassium 4.0 mmol/L (3.5-5.1) 04/01/24 12:19 Chloride 110 mmol/L (98-107) H 04/01/24 12:19 Carbon Dioxide 22 mmol/L (22-29) 04/01/24 12:19 Anion Gap 15.0 (5-19) 04/01/24 12:19 BUN 13 mg/dL (6-20) 04/01/24 12:19 Creatinine 1.0 mg/dL (0.7-1.2) 04/01/24 12:19 GFR Calculation 87.7 mL/min (90-130) L 04/01/24 12:19 Glucose 89 mg/dL (65-115) 04/01/24 12:19 Calculated Osmolality 296 mOsm/kg (285-295) H 04/01/24 12:19 Calcium 9.1 mg/dL (8.5-10.5) 04/01/24 12:19 Total Bilirubin 0.5 mg/dL (0.15-1.2) 04/01/24 12:19 AST 30 U/L (0-40) 04/01/24 12:19 ALT 59 U/L (0-41) H 04/01/24 12:19 Alkaline Phosphatase 91 U/L (40-130) 04/01/24 12:19 Total Protein 7.0 g/dL (6.6-8.7) 04/01/24 12:19 Albumin 3.9 g/dL (3.5-5.2) 04/01/24 12:19 Globulin 3.1 g/dL (1.3-4.6) 04/01/24 12: TSH 1.04 uIU/mL (0.27-4.20) 04/01/24 12: Urine Color Dark yellow (Yellow) A 04/01/24 12: Urine Appearance Clear (CLEAR) 04/01/24 12: Urine pH 6.0 (5-7) 04/01/24 12: Ur Specific Oracle 1.032 (1.005-1.030) H 04/01/24 12:28 Urine Protein Trace (Negative) A 04/01/24 12:28 Urine Glucose (UA) Negative (Normal) 04/01/24 12: Urine Ketones Trace (Negative) 04/01/24 12: Urine Blood Negative (Negative) 04/01/24 12: Urine Nitrate Negative (Negative) 04/01/24 12: Urine Bilirubin 1+ (Negative) H 04/01/24 12:28 Urine Urobilinogen 1.0 mg/dL (Negative) 04/01/24 12:28 Ur Leukocyte Esterase Trace (Negative) A 04/01/24 12:28 Urine RBC 0-4 /hpf (0-2) H 04/01/24 12:28 Urine WBC 0-4 /hpf (0-5) H 04/01/24 12:28 Ur Squamous Epith Cells 0-4 /hpf (0-5) H 04/01/24 12:28 Amorphous Sediment Not Reportable 04/01/24 12:28 Urine Bacteria Trace /hpf (NONE) 04/01/24 12:28 Urine Mucus 1+ /hpf 04/01/24 12:28 Salicylates < 0.3 mg/dL (3-10) L 04/01/24 12:19 Urine Opiates Screen Negative ng/mL (Negative) 04/01/24 12:28 Acetaminophen < 5.0 ug/mL (10-30) L 04/01/24 12:19 Ur Barbiturates Screen Negative ng/mL (Negative) 04/01/24 12:28 Ur Phencyclidine Scrn Negative ng/mL (Negative) 04/01/24 12:28 Ur Amphetamines Screen Negative ng/mL (Negative) 04/01/24 12:28 U Benzodiazepines Scrn Negative ng/mL (Negative) 04/01/24 12:28 Urine Cocaine Screen Negative ng/mL (Negative) 04/01/24 12:28 U Marijuana (THC) Screen Negative ng/mL (Negative) 04/01/24 12:28 Ethyl Alcohol < 10 mg/dL (0-10) 04/01/24 12:19 No radiology studies performed this visit Discharge Plan Discharge Patient Disposition: Admitted As Inpatient Clinical Impression: Suicidal ideation, Autistic disorder, Disruptive mood dysregulation disorder Condition: Stable Coding Level of Care Code ED Out Of School Hours Care Worker for Alva Che
--- NOTE | 2024-04-01 12:11 | ECG_ITS ---
[facility]: 2024-04-01 Pat Name: Josh Colindres Department: Room: Gender: Male Lot Technician: : 1995 Requested By: Adrianna Guzman Order Number: [id number] Calli MD: FREDRICK LOUISE Measurements Intervals [place] Rate: 93 P: 65 CT: 150 QRS: 10 QRSD: 110 T: 94 QT: 361 QTc: 450 Interpretive Statements SINUS RHYTHM INDETERMINATE AXIS ABNORMAL QRS-T ANGLE [QRS-T AXIS DIFFERENCE > 60] Compared to ECG 01/16/2024 19:43:35 Indeterminate axis now present Sinus tachycardia no longer present Right-axis deviation no longer present Myocardial infarct finding no longer present Electronically Signed On 04-04-2024 23:41:33 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
[2024-04-01 12:31] LABS: Basophils % 0.9 %; Eosinophils # 0.1 10^3/uL (0.0-0.8); Eosinophils % 2.2 %; Hematocrit 43.1 % (37-53); Lymphocytes # 1.4 10^3/uL (0.8-4.8); Lymphocytes % 31.4 %; Mean Corpuscular HGB Conc 34.1 g/dL (30-55); Mean Corpuscular Hemoglobin 29.6 pg (27-33); Mean Corpuscular Volume 86.9 fl (82-101); Mean Platelet Volume 9.9 fL (7.4-10.4); Monocytes # 0.4 10^3/uL (0.2-0.9); Monocytes % 9.6 %; Neutrophils # 2.53 10^3/uL (1.8-7.7); Neutrophils % 55.5 %; Nucleated Red Blood Cells % 0 %; Platelet Count 201 10^3/cmm (157-399); Red Blood Count 4.96 10^6/uL (3.85-5.65); Red Cell Distribution Width 11.9 % (12.1-15.1); White Blood Count 4.56 10^3/uL (3.29-11.43)
[2024-04-01 12:38] LABS: Bilirubin Urine 1+ (Negative); Blood Urine Negative (Negative); Glucose Urine UA Negative (Normal); Ketones Urine Trace (Negative); Leukocyte Esterase Urine Trace (Negative); Nitrate Urine Negative (Negative); Protein Urine Trace (Negative); Urine Appearance Clear (CLEAR); Urine Color Dark Yellow (Yellow)
[2024-04-01 12:46] LABS: Amphetamines Screen Urine Negative (Negative); Barbiturates Screen Urine Negative (Negative); Benzodiazepines Screen Urine Negative (Negative); Cocaine Screen Urine Negative (Negative); Opiate Screen Urine Negative (Negative); PCP Screen Urine Negative (Negative); THC Screen Urine Negative (Negative)
[2024-04-01 12:54] LABS: Bacteria Urine TRACE /hpf; RBC Urine 0-4 /hpf (0-2); Specific Gravity, Urine 1.032 (1.005-1.030); Squamous Epithelial Cell Urine 0-4 /hpf (0-5); UA Manual Slide Review YES; UA Slide Review UA Slide Review Perf; WBC Urine 0-4 /hpf (0-5)
[2024-04-01 12:55] LABS: Mucus Urine 1+ /hpf
[2024-04-01 12:57] LABS: Acetaminophen < 5.0 ug/mL (10-30); Alanine Aminotransferase 59 U/L (0-41); Albumin Level 3.9 g/dL (3.5-5.2); Alcohol Level < 10 mg/dL (0-10); Alkaline Phosphatase 91 U/L (40-130); Aspartate Amino Transferase 30 U/L (0-40); Blood Urea Nitrogen 13 mg/dL (6-20); Calcium 9.1 mg/dL (8.5-10.5); Carbon Dioxide 22 mmol/L (22-29); Chloride 110 mmol/L (98-107); Creatinine Clr Calc Pharmacy 176.7028; Globulin 3.1 g/dL (1.3-4.6); Glomerular Filtration Rate 87.7 mL/min (90-130); Glucose 89 mg/dL (65-115); Osmolality Calculated 296 mOsm/kg (285-295); Salicylate < 0.3 mg/dL (3-10); Sodium 143 mmol/L (136-145); Thyroid Stimulating Hormone 1.04 uIU/mL (0.27-4.20); Total Bilirubin 0.5 mg/dL (0.15-1.2)
--- NOTE | 2024-04-01 15:11 | PC.NURSE ---
96 hour hold rights read and reviewed with patient. Raf from security present during reading of rights. Copy of rights given to patient.
[2024-04-01 16:09] VITALS: BP 142/96; PULSE 96; RESP 18; TEMP 37.1
--- NOTE | 2024-04-01 17:08 | PC.NURSE ---
Admission assessment Patient was brought in by police to the ED for evaluation. Patient was kicking martinez, angry at his home. Patient's staff notified the police. Patient said that he is unsure why he was upset at the time. When the police arrived, patient became agitated again because he thought that it was unnecessary for the police to be involved. Patient said that he told the officer to shoot me in the head because he was angry, not suicidal. Patient lives at a home that has staff present constantly, through [facility]. Patient's guardian is Harlan Mason. Patient has a history of violent behavior. He says that because of his medications, he is calmer more often, and when he does get agitated, he is able to quickly calm down. Patient denies history of suicide attempt. Patient denies AVH and anxiety. Patient said that two months ago, he requested that his psychiatric provider, Lenora Lafleur, make changes to his medications. Patient is unsure what changes were made. Patient says that since then, he no longer has a feeling of sudha that he used to have. Patient is interested in changing his medications back to how they were two months ago, stating I didn't know how good I had it. Patient calm and cooperative during admission process.
--- NOTE | 2024-04-01 18:55 | PC.NURSE ---
DR. BENITEZ NOTIFIED OF PT URINE RESULTS. NEW ORDERS RECEIVED TO OBTAIN URINE CULTURE ON URINE THAT IS ALREADY IN THE LAB. LAB CALLED AND CONFIRMED THEY CAN USE THE URINE THAT IS DOWN THERE.
--- NOTE | 2024-04-01 18:55 | PC.NURSE ---
This nurse was notified by another patient that this patient was touching and massaging her feet. Dr. Howell, charge nurse, and this scientific writer made aware. Patient was educated by this nurse and the no-contact rule on the unit. Patient stated that he was unaware and apologized. Patient voiced that he understands that he cannot touch patients.
[2024-04-01] MEDS: quetiapine 100 mg Tablet 200 MG PO (20:54)
[2024-04-01] MEDS: mirtazapine 15 mg Tablet PO (20:54)
[2024-04-01 20:59] VITALS: BP 130/74; PULSE 93; RESP 18; TEMP 37.1; O2SAT 99
[2024-04-02 05:55] VITALS: BMI 37.0
[2024-04-02 06:00] VITALS: BP 128/83; PULSE 93; RESP 18; TEMP 36.6; O2SAT 97
[2024-04-02] MEDS: ziprasidone hcl 60 mg Capsule PO (09:06)
[2024-04-02] MEDS: venlafaxine ER (24HR) 75 mg Capsule PO (09:06)
[2024-04-02] MEDS: buPROPion XL (24 HR) 300 mg Tablet PO (09:06)
[2024-04-02] MEDS: multivitamin therapeutic Tablet 1 TAB PO (09:06)
[2024-04-02] MEDS: buPROPion XL (24 HR) 150 mg Tablet PO (09:06)
--- NOTE | 2024-04-02 11:25 | P.NPUHP_ITS ---
Providers/Chief Complaint 2 Admitting Physician: Ruben Howell MD Primary Care Provider: Kenneth Bravo DO Chief Complaint: mhe HPI NPU History of Present Illness Josh Colindres is a 29 year old male who presented to the emergency department with the following report: Chief Complaint: Psychiatric Symptoms Stated Complaint: mhe Time Seen by Provider: 04/01/24 11:45 History of Present Illness: 29-year-old man with history of depression, autistic disorder and issues with psychosis who presents emergency room after having an explosive episode at the [facility] he lives in. Apparently he had busted out windows and had poured some sort of oil on himself and threatened to burn himself in the house down. When the police arrived he asked them to shoot him in the head. When I talk to him he is very quiet and appears nonviolent at this time. He says he has anger issues and that is about all he will tell me. He goes back to reading his book. He was admitted to the neuropsychiatric unit for definitive treatment of those issues. He is known to the psychiatric community at [facility] through inpatient and outpatient services and he presents as he often does with a significant agitated episode and as has happened in the past he presents reporting that there is no need to do anything he was just angry and he is fine now. He had a hospitalization back in January 2024 and an excerpt of that discharge summary is included below for context. He has been seeing his outpatient provider and there has been no identified need for any changes. He presents today reporting that he was being out of control at his [facility] and he was angry about something that he can even remember what it was. He reports that they called the police and while the police were there he did acknowledge that he was upset and he did tell them to shoot him in the head and just kill him. He reports now that that was just out of anger and that he is absolutely fine he is not angry anymore and he denies needing to be here he denies any need for any medication changes. He reports that his medications have been working quite well. We agreed we would talk to his [facility], his guardian and determine whether this represents some significant decompensation or a reflection of his intermittent explosive disorder and if so we will make this a quick visit. Per his 02/07/2024 [facility] inpatient psychiatric discharge summary: Discharge Diagnosis (1) Major depressive disorder, recurrent severe without psychotic features: Status: Acute (2) Disruptive mood dysregulation disorder: Status: Acute (3) Autistic disorder: Status: Acute Reason for Visit Reason for Visit: si/vomiting Brief History: History of Present Illness Josh Colindres is a 28 year old male who presented to the emergency department with the following report: Chief Complaint: Psychiatric Symptoms Stated Complaint: si/vomiting Time Seen by Provider: 02/04/24 17:34 Source: patient and EMS Mode of arrival: EMS Limitations: no limitations History of Present Illness: 28-year-old male who states he has been having suicidal thoughts he states that he has a plan of slitting his wrist with glass. Patient denies any worse improved factors. He states he is also been having abdominal pains are going on for days denies any fevers. Associated symptoms: Reports depression and suicidal ideation. He was admitted to the neuropsychiatric unit for definitive treatment of those issues. He is well-known to [facility] through inpatient and outpatient services. His most recent outpatient visit with this provider was in December of this year. His most recent inpatient visit was in March 2022 and an excerpt of that discharge summary is included below for context. His presentation however is fairly consistent with past hospitalizations with intrusive thoughts about something leading to him having great distress and suicidal thinking. An excerpt of his last inpatient discharge summary is included for context and the lack of substantive changes. He presents today reporting that this is all a misunderstanding. He reports that in general he has been doing well since his last hospitalization that is noted below. He says that his medications have been working and that this was a poor choice on his part because he got angry. He reports that after he got angry he started making comments and threats. He reports the settings going to cut himself but had no intention to cut himself. He reports he reported some suicidal thoughts but denies that they actually existed and that he was just angry and not wanting to necessarily be there. He reports that the medications the outpatient team have him on are effective and he has no concerns. We discussed a plan to reach out to his facility and talk to them about what staffing concerns they might have and discuss a plan to monitor him and consider discharge within the next 48 hours. 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 He was admitted to the neuropsychiatric unit for further evaluation and treatment. The patient has had multiple visits to the emergency department over the past year after having episodes of agitation and anger where he would make threats towards various staff members. He reports that he has been diagnosed with Asperger's disorder and has been residing in an independent living facility under [facility] since 2014. He reports that much of his frustration has to do with depression that has been present for several months. He reports a lack of interest in completing any activities. He reports low motivation and low energy. He reports having sleep continuity disruption. He did report that his depression had been improving and reports that he had been more hopeful. He denies any suicidal ideation but states that when he becomes upset he will make threats to hurt himself or others. The patient reports that he had previously struggled with having a sexual attraction to people's feet and had previously grabbed women's feet and had attempted to ask strangers about their shoes. He reports that he had been prescribed intramuscular Depo-Provera for about 5 years ending in 2019. He reports that his sexual fetish and recurring obsessive thoughts about women's feet had declined substantially but he reports that he has been frustrated that he has had a permanent change in his libido as he had been unable to masturbate or become erect. He describes having his primary problems with engaging with others including engaging with potential sutures has been impaired despite normal levels of testosterone. He reports that he does not feel like he can be normal and reports that he has been struggling with managing his anger. Inpatient psychiatric history: He reports multiple inpatient hospitalizations with most recent hospitalization here at [facility] in June 2021. Outpatient psychiatric history: He is followed at [facility] outpatient behavioral health clinic with most recent visit approximately 1 month ago. Medical history: Gastritis Surgeries: Foot surgery Allergies: Haldol/Ritalin Medications: Remeron 15 mg at night, omeprazole 40 mg twice a day, Seroquel 200 mg at night, Geodon 40 mg at night, Wellbutrin 450 mg daily Drug and alcohol history: None Legal history: None Social history: The patient was born in [facility] and lived with his biological mother until the age of 6. He has no contact with his biological father. He reports having been placed in foster care and was eventually adopted by his foster mom's mother. He reports that he had problems with learning and dropped out of school in the 11th grade and has not obtained his GED. He had reported having problems with anger and agitation with the patient reporting no history of sexual physical or emotional abuse. He had acknowledged having been evaluated for having behavioral problems as a child. He has no known family psychiatric history noted. His legal guardian is currently a local defense attorney in [facility]. He has been living under the care of [facility] since 2014 where he does not work and does not attend a day program. Hospital Course He quickly acclimated to the individual, group and milieu therapies provided. He is well-known to psychiatric services through inpatient and outpatient services and very quickly identified that the reports of lethality were made out of anger secondary to an interaction with his staff. From the moment he was on the unit he denied lethality and had no fluctuation in mood or any behavior that was demonstrative of any concern. Given his intermittent explosive nature we monitored him for safety and made no medication changes. The social work team work with him to make sure he had outpatient appointments in place. He had significant improvement during the stay compared to the initial reports. And he was able to contract for safety outside the hospital prior to discharge. During the hospitalization, patient had routine laboratory studies which were within normal limits except for few outliers. Additionally there was a general medical evaluation which was also within normal limits and revealed no new acute processes. At the time of discharge, he denied psychosis or lethality. Mood and anxiety were well managed. Patient endorsed a plan to avoid all drugs of abuse and follow-up with the aftercare recommendations of the treatment team. Patient was evaluated and deemed to be absent credible lethality, and had achieved the maximum benefit from an inpatient hospitalization, so was discharged. Meds NPU Home Medications ?Medication ?Instructions ?Recorded ?Confirmed ?Last Taken ?Type loratadine 10 mg tablet (Claritin) 10 mg PO DAILY PRN Allergy Symptoms 10/06/21 04/01/24 Unknown History multivitamin with folic acid 400 1 tab PO DAILY 04/01/24 12/21/21 History mcg tablet (Daily-Shabbir (with folic acid)) naphazo HCl 0.025 %-hyprome 0.2 1 drp ophthalmic (eye) QID PRN 12/22/21 04/01/24 Unknown History %-ps 80 0.5 %-Zn sulf 0.25 % eye Allergy Symptoms drops (Clear Eyes Complete) omeprazole 40 mg capsule,delayed 40 mg PO BID 02/04/24 04/01/24 Unknown History release ziprasidone HCl 60 mg capsule 60 mg PO DAILY #30 caps 02/14/24 04/01/24 Unknown Rx (Geodon) bupropion HCl 150 mg 24 hr tablet, 150 mg PO DAILY #30 tabs 02/17/24 04/01/24 Unknown Rx extended release bupropion HCl 300 mg 24 hr tablet, 300 mg PO DAILY #30 tabs 02/17/24 04/01/24 Unknown Rx extended release (Wellbutrin XL) quetiapine 200 mg tablet (Seroquel) 200 mg PO BEDTIME #30 tabs 02/17/24 04/01/24 Unknown Rx venlafaxine 150 mg 150 mg PO DAILY #30 caps 09/0104/01/24 Unknown Rx capsule,extended release 24 hr (Effexor XR) sildenafil 100 mg tablet 100 mg PO DAILY PRN erectile 04/01/24 04/01/24 Unknown History disorder venlafaxine 75 mg capsule,extended 75 mg PO DAILY 03/1204/01/24 Unknown History release 24 hr Allergies Allergy/AdvReac Type Severity Reaction Status Date / Time haloperidol (From Haldol) Allergy Unknown Verified 03/17/24 11:28 methylphenidate (From Allergy Unknown Verified 03/17/24 11:28 Ritalin) PFSH NPU 2 PFSH: Medical History On combination antipsychotic drug therapy Psychiatric care Major depressive disorder, recurrent, moderate Disruptive mood dysregulation disorder Autistic disorder Surgical History H/O esophagogastroduodenoscopy (05/30/21) History of foot surgery right- 2020 Social History Smoking and tobacco/nicotine status: never used tobacco/nicotine Mental Status Exam 2 MSE Comments: This is a tall obese white male, in [facility] scrubs with adequate grooming and eye contact. No abnormal movements except for mild psychomotor retardation. Cooperative with exam in no acute distress. Speech had normal rate and volume, with decreased prosody. Mood described as as good and I do not think I need to be here, affect congruent. Thought process organized, thought content: patient denied suicidal or homicidal ideation, there were no delusions reported or noted, he denied any auditory or visual hallucinations. Attention and concentration were intact, and memory appeared mostly reliable, but none were formally tested. He is alert and oriented x 3. Insight and judgment are limited. Impulse control is impaired. Intellectual ability appears limited. Vitals/I&O/Wt Last Vital Signs Temp 98 F 04/02/24 06:00 Pulse 93 04/02/24 06:00 Resp 18 04/02/24 06:00 BP 128/83 04/02/24 06:00 Pulse Ox 97 04/02/24 06:00 O2 Del Method Room Air 04/02/24 06:00 Weight last 48 hrs Weight 152.917 kg Weight 145.15 kg Data NPU 04/01/24 12:19 04/01/24 12:19 A&P Assessment and plan (1) Major depressive disorder, recurrent severe without psychotic features: (2) Disruptive mood dysregulation disorder: (3) Autistic disorder: (4) Intermittent explosive disorder in adult: (5) Suicidal ideation: Plan This is a 29-year-old, white male, with autism, major depressive disorder, recurrent, disruptive mood dysregulation disorder, who presents acknowledging that he had a meltdown at his facility which led to the police coming and he does acknowledge that he may need some inappropriate comments but he reports that because he was mad and he currently denies any issues or any reason to be here. RECOMMENDATION AND PLAN: 1.? Continue current medication 2.? Therapeutic observation 15-minute checks on the unit 3.? Encourage individual, group and milieu therapies. 4.? Attempt to gather collateral information. 5. Identify whether this represents an acute decompensation or an impulsive moment to determine whether medication changes are necessary versus a therapeutic discharge. At this point tentative plan for discharge on Wednesday but will talk to his facility to see what their ability to accept him is over the next 48 hours. PDMP PDMP Reviewed: Not Reviewed Involuntary Hold Information 2 96 Hour Hold: 96 Hour Involuntary Admission: No Attestations NPU 2 Medical Necessity Statement*: Inpatient hospitalization is medically necessary and the clinically appropriate intervention at this time. We will monitor medications and make changes as indicated. Patient will be in the hospital for over two midnights. Likely length of stay is 2-4 days. Coding Level of Care Code Acute Code for Chg Fwd Diagnoses Major depressive disorder, recurrent severe without psychotic features F33.2 Disruptive mood dysregulation disorder F34.81 Autistic disorder F84.0 Intermittent explosive disorder in adult F63.81 Suicidal ideation R45.851
[2024-04-02 14:00] VITALS: BP 134/87; PULSE 79; RESP 20; TEMP 36.7; O2SAT 96
[2024-04-02] MEDS: quetiapine 100 mg Tablet 200 MG PO (20:45)
[2024-04-02] MEDS: mirtazapine 15 mg Tablet PO (20:45)
[2024-04-02 21:04] VITALS: BP 149/99; PULSE 96; RESP 18; TEMP 36.4; O2SAT 96
[2024-04-03 06:00] VITALS: BP 113/78; PULSE 78; RESP 17; TEMP 36.3; O2SAT 93
[2024-04-03] MEDS: buPROPion XL (24 HR) 300 mg Tablet PO (08:52)
[2024-04-03] MEDS: buPROPion XL (24 HR) 150 mg Tablet PO (08:52)
[2024-04-03] MEDS: venlafaxine ER (24HR) 75 mg Capsule PO (08:52)
[2024-04-03] MEDS: multivitamin therapeutic Tablet 1 TAB PO (08:52)
[2024-04-03] MEDS: ziprasidone hcl 60 mg Capsule PO (08:52)
[2024-04-03] MEDS: ondansetron 4 MG Tablet PO (11:12)
--- NOTE | 2024-04-03 13:07 | W.PM.NPUDCS ---
Diagnoses at Discharge Discharge Diagnosis (1) Major depressive disorder, recurrent severe without psychotic features: Status: Acute (2) Disruptive mood dysregulation disorder: Status: Acute (3) Autistic disorder: Status: Acute (4) Intermittent explosive disorder in adult: Status: Acute (5) Suicidal ideation: Status: Acute Reason for Visit Reason for Visit: mhe Brief History: History of Present Illness Josh Colindres is a 29 year old male who presented to the emergency department with the following report: Chief Complaint: Psychiatric Symptoms Stated Complaint: mhe Time Seen by Provider: 04/01/24 11:45 History of Present Illness: 29-year-old man with history of depression, autistic disorder and issues with psychosis who presents emergency room after having an explosive episode at the intermediate he lives in. Apparently he had busted out windows and had poured some sort of oil on himself and threatened to burn himself in the house down. When the police arrived he asked them to shoot him in the head. When I talk to him he is very quiet and appears nonviolent at this time. He says he has anger issues and that is about all he will tell me. He goes back to reading his book. He was admitted to the neuropsychiatric unit for definitive treatment of those issues. He is known to the psychiatric community at [facility] through inpatient and outpatient services and he presents as he often does with a significant agitated episode and as has happened in the past he presents reporting that there is no need to do anything he was just angry and he is fine now. He had a hospitalization back in January 2024 and an excerpt of that discharge summary is included below for context. He has been seeing his outpatient provider and there has been no identified need for any changes. He presents today reporting that he was being out of control at his [facility] and he was angry about something that he can even remember what it was. He reports that they called the police and while the police were there he did acknowledge that he was upset and he did tell them to shoot him in the head and just kill him. He reports now that that was just out of anger and that he is absolutely fine he is not angry anymore and he denies needing to be here he denies any need for any medication changes. He reports that his medications have been working quite well. We agreed we would talk to his ISL, his guardian and determine whether this represents some significant decompensation or a reflection of his intermittent explosive disorder and if so we will make this a quick visit. Per his 02/07/2024 [facility] inpatient psychiatric discharge summary: Discharge Diagnosis (1) Major depressive disorder, recurrent severe without psychotic features: Status: Acute (2) Disruptive mood dysregulation disorder: Status: Acute (3) Autistic disorder: Status: Acute Reason for Visit Reason for Visit: si/vomiting Brief History: History of Present Illness Josh Colindres is a 28 year old male who presented to the emergency department with the following report: Chief Complaint: Psychiatric Symptoms Stated Complaint: si/vomiting Time Seen by Provider: 02/04/24 17:34 Source: patient and EMS Mode of arrival: EMS Limitations: no limitations History of Present Illness: 28-year-old male who states he has been having suicidal thoughts he states that he has a plan of slitting his wrist with glass. Patient denies any worse improved factors. He states he is also been having abdominal pains are going on for days denies any fevers. Associated symptoms: Reports depression and suicidal ideation. He was admitted to the neuropsychiatric unit for definitive treatment of those issues. He is well-known to [facility] through inpatient and outpatient services. His most recent outpatient visit with this provider was in December of this year. His most recent inpatient visit was in March 2022 and an excerpt of that discharge summary is included below for context. His presentation however is fairly consistent with past hospitalizations with intrusive thoughts about something leading to him having great distress and suicidal thinking. An excerpt of his last inpatient discharge summary is included for context and the lack of substantive changes. He presents today reporting that this is all a misunderstanding. He reports that in general he has been doing well since his last hospitalization that is noted below. He says that his medications have been working and that this was a poor choice on his part because he got angry. He reports that after he got angry he started making comments and threats. He reports the settings going to cut himself but had no intention to cut himself. He reports he reported some suicidal thoughts but denies that they actually existed and that he was just angry and not wanting to necessarily be there. He reports that the medications the outpatient team have him on are effective and he has no concerns. We discussed a plan to reach out to his facility and talk to them about what staffing concerns they might have and discuss a plan to monitor him and consider discharge within the next 48 hours. 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 He was admitted to the neuropsychiatric unit for further evaluation and treatment. The patient has had multiple visits to the emergency department over the past year after having episodes of agitation and anger where he would make threats towards various staff members. He reports that he has been diagnosed with Asperger's disorder and has been residing in an independent living facility under [facility] since 2014. He reports that much of his frustration has to do with depression that has been present for several months. He reports a lack of interest in completing any activities. He reports low motivation and low energy. He reports having sleep continuity disruption. He did report that his depression had been improving and reports that he had been more hopeful. He denies any suicidal ideation but states that when he becomes upset he will make threats to hurt himself or others. The patient reports that he had previously struggled with having a sexual attraction to people's feet and had previously grabbed women's feet and had attempted to ask strangers about their shoes. He reports that he had been prescribed intramuscular Depo-Provera for about 5 years ending in 2019. He reports that his sexual fetish and recurring obsessive thoughts about women's feet had declined substantially but he reports that he has been frustrated that he has had a permanent change in his libido as he had been unable to masturbate or become erect. He describes having his primary problems with engaging with others including engaging with potential sutures has been impaired despite normal levels of testosterone. He reports that he does not feel like he can be normal and reports that he has been struggling with managing his anger. Inpatient psychiatric history: He reports multiple inpatient hospitalizations with most recent hospitalization here at [facility] in June 2021. Outpatient psychiatric history: He is followed at [facility] outpatient behavioral health clinic with most recent visit approximately 1 month ago. Medical history: Gastritis Surgeries: Foot surgery Allergies: Haldol/Ritalin Medications: Remeron 15 mg at night, omeprazole 40 mg twice a day, Seroquel 200 mg at night, Geodon 40 mg at night, Wellbutrin 450 mg daily Drug and alcohol history: None Legal history: None Social history: The patient was born in [facility] and lived with his biological mother until the age of 6. He has no contact with his biological father. He reports having been placed in foster care and was eventually adopted by his foster mom's mother. He reports that he had problems with learning and dropped out of school in the 11th grade and has not obtained his GED. He had reported having problems with anger and agitation with the patient reporting no history of sexual physical or emotional abuse. He had acknowledged having been evaluated for having behavioral problems as a child. He has no known family psychiatric history noted. His legal guardian is currently a local patent prosecution attorney in [facility]. He has been living under the care of [facility] since 2014 where he does not work and does not attend a day program. Hospital Course Hospital Course He quickly acclimated to the individual, group and milieu therapies provided. He is well-known to psychiatric services through inpatient and outpatient services and very quickly identified that the reports of lethality were made out of anger secondary to an interaction with his staff. From the moment he was on the unit he denied lethality and had no fluctuation in mood or any behavior that was demonstrative of any concern. Given his intermittent explosive nature we monitored him for safety and made no medication changes. The social work team work with him to make sure he had outpatient appointments in place. He had significant improvement during the stay compared to the initial reports. And he was able to contract for safety outside the hospital prior to discharge. During the hospitalization, patient had routine laboratory studies which were within normal limits except for few outliers. Additionally there was a general medical evaluation which was also within normal limits and revealed no new acute processes. At the time of discharge, he denied psychosis or lethality. Mood and anxiety were well managed. Patient endorsed a plan to avoid all drugs of abuse and follow-up with the aftercare recommendations of the treatment team. Patient was evaluated and deemed to be absent credible lethality, and had achieved the maximum benefit from an inpatient hospitalization, so was discharged Involuntary Hold Information 96 Hour Hold: 96 Hour Involuntary Admission: No Mental Status Exam MSE Comments: This is a tall obese white male, in green hospital scrubs with adequate grooming and eye contact. No abnormal movements except for mild psychomotor retardation. Cooperative with exam in no acute distress. Speech had normal rate and volume, with decreased prosody. Mood described as as good and I do not think I need to be here, affect congruent. Thought process organized, thought content: patient denied suicidal or homicidal ideation, there were no delusions reported or noted, he denied any auditory or visual hallucinations. Attention and concentration were intact, and memory appeared mostly reliable, but none were formally tested. He is alert and oriented x 3. Insight and judgment are limited. Impulse control is impaired. Intellectual ability appears limited. Discharge Data Studies Completed and Pending: Pending at discharge Category Date Time Status Urine Culture [facility] 04/01/24 12:28 Results Laboratory Results WBC 4.56 10^3/uL (3.2 9-11.43) 04/01/24 12:19 RBC 4.96 10^6/uL (3.8 5-5.65) 04/01/24 12:19 Hgb 14.70 g/dL (11.27 -16.99) 04/01/24 12:19 Hct 43.1 % (37-53) 04/01/24 12:19 MCV 86.9 fl (82-101) 04/01/24 12:19 MCH 29.6 pg (27-33) 04/01/24 12:19 MCHC 34.1 g/dL (30-55) 04/01/24 12:19 RDW 11.9 % (12.1-15.1 ) L 04/01/24 12:19 Plt Count 201 10^3/cmm (157 -399) 04/01/24 12:19 MPV 9.9 fL (7.4-10.4) 04/01/24 12:19 Neut % (Auto) 55.5 % 04/01/24 12:19 Lymph % (Auto) 31.4 % 04/01/24 12:19 [place] % (Auto) 9.6 % 04/01/24 12:19 Eos % (Auto) 2.2 % 04/01/24 12:19 Baso % (Auto) 0.9 % 04/01/24 12:19 Neut # (Auto) 2.53 10^3/uL (1.8 -7.7) 04/01/24 12:19 Lymph # (Auto) 1.4 10^3/uL (0.8- 4.8) 04/01/24 12:19 [place] # (Auto) 0.4 10^3/uL (0.2- 0.9) 04/01/24 12:19 Eos # (Auto) 0.1 10^3/uL (0.0- 0.8) 04/01/24 12:19 Baso # (Auto) 0.0 10^3/uL (0.0- 0.1) 04/01/24 12:19 Nucleated RBC % (a uto) 0 % 04/01/24 12:19 Nucleated RBCs # 0.0 /100WBC 04/01/24 12:19 Sodium 143 mmol/L (136-1 45) 04/01/24 12:19 Potassium 4.0 mmol/L (3.5-5 .1) 04/01/24 12:19 Chloride 110 mmol/L (98-10 7) H 04/01/24 12:19 Carbon Dioxide 22 mmol/L (22-29) 04/01/24 12:19 Anion Gap 15.0 (5-19) 04/01/24 12:19 BUN 13 mg/dL (6-20) 04/01/24 12:19 Creatinine 1.0 mg/dL (0.7-1. 2) 04/01/24 12:19 GFR Calculation 87.7 mL/min (90-1 30) L 04/01/24 12:19 Glucose 89 mg/dL (65-115) 04/01/24 12:19 Calculated Osmolal ity 296 mOsm/kg (285- 295) H 04/01/24 12:19 Calcium 9.1 mg/dL (8.5-10 .5) 04/01/24 12:19 Total Bilirubin 0.5 mg/dL (0.15-1 .2) 04/01/24 12:19 AST 30 U/L (0-40) 04/01/24 12:19 ALT 59 U/L (0-41) H 04/01/24 12:19 Alkaline Phosphata se 91 U/L (40-130) 04/01/24 12:19 Total Protein 7.0 g/dL (6.6-8.7 ) 04/01/24 12: Albumin 3.9 g/dL (3.5-5.2 ) 04/01/24 12: Globulin 3.1 g/dL (1.3-4.6 ) 04/01/24 12: TSH 1.04 uIU/mL (0.27 -4.20) 04/01/24 12:19 Urine Color Dark yellow (Yel low) A 04/01/24 12:28 Urine Appearance Clear (CLEAR) 04/01/24 12:28 Urine pH 6.0 (5-7) 04/01/24 12:28 Ur Specific Gravit y 1.032 (1.005-1.0 30) H 04/01/24 12:28 Urine Protein Trace (Negative) A 04/01/24 12:28 Urine Glucose (UA) Negative (Normal ) 04/01/24 12:28 Urine Ketones Trace (Negative) 04/01/24 12:28 Urine Blood Negative (Negati ve) 04/01/24 12:28 Urine Nitrate Negative (Negati ve) 04/01/24 12:28 Urine Bilirubin 1+ (Negative) H 04/01/24 12:28 Urine Urobilinogen 1.0 mg/dL (Negati ve) 04/01/24 12:28 Ur Leukocyte Michelle ase Trace (Negative) A 04/01/24 12:28 Urine RBC 0-4 /hpf (0-2) H 04/01/24 12:28 Urine WBC 0-4 /hpf (0-5) H 04/01/24 12:28 Ur Squamous Epith Cells 0-4 /hpf (0-5) H 04/01/24 12:28 Amorphous Sediment Not Reportable 04/01/24 12:28 Urine Bacteria Trace /hpf (NONE) 04/01/24 12:28 Urine Mucus 1+ /hpf 04/01/24 12:28 Salicylates < 0.3 mg/dL (3-10 ) L 04/01/24 12: Urine Opiates Scre en Negative ng/mL (N egative) 04/01/24 12:28 Acetaminophen < 5.0 ug/mL (10-3 0) L 04/01/24 12:19 Ur Barbiturates Sc reen Negative ng/mL (N egative) 04/01/24 12:28 Ur Phencyclidine S crn Negative ng/mL (N egative) 04/01/24 12:28 Ur Amphetamines Sc reen Negative ng/mL (N egative) 04/01/24 12:28 U Benzodiazepines Scrn Negative ng/mL (N egative) 04/01/24 12:28 Urine Cocaine Scre en Negative ng/mL (N egative) 04/01/24 12:28 U Marijuana (THC) Screen Negative ng/mL (N egative) 04/01/24 12:28 Ethyl Alcohol < 10 mg/dL (0-10) 04/01/24 12:19 Vitals: Last Vital Signs Temp 97.3 F L 04/03/24 06:00 Pulse 78 04/03/24 06:00 Resp 17 04/03/24 06:00 BP 113/78 04/03/24 06:00 Pulse Ox 93 04/03/24 06:00 O2 Del Method Room Air 04/03/24 06:00 Discharge Plan Discharge Patient Disposition: Home Condition: Stable Prescriptions: Continued venlafaxine [Effexor XR] 150 mg capsule,extended release 24hr 150 mg PO DAILY Qty: 30 2RF bupropion HCl [Wellbutrin XL] 300 mg tablet extended release 24 hr 300 mg PO DAILY Qty: 30 2RF Rx Instructions: take daily with 150mg tab bupropion HCl 150 mg tablet extended release 24 hr 150 mg PO DAILY Qty: 30 2RF quetiapine [Seroquel] 200 mg tablet 200 mg PO BEDTIME Qty: 30 2RF ziprasidone HCl [Geodon] 60 mg capsule 60 mg PO DAILY Qty: 30 1RF Clear Eyes Complete 0.025-0.2-0.5 % Drops 1 drp OPHTHALMIC (EYE) QID PRN (Reason: Allergy Symptoms) loratadine [Claritin] 10 mg Tablet 10 mg PO DAILY PRN (Reason: Allergy Symptoms) multivitamin with folic acid [Daily-Shabbir (with folic acid)] 400 mcg tablet 1 tab PO DAILY omeprazole 40 mg capsule,delayed release(DR/EC) 40 mg PO BID venlafaxine 75 mg capsule,extended release 24hr 75 mg PO DAILY sildenafil 100 mg tablet 100 mg PO DAILY PRN (Reason: erectile disorder) Discharge Orders: Discharge Order (Routine); Ordered 04/03/24 Ordered By: Ruben Howell Referrals: Kenneth Bravo DO [Primary Care Provider] - Discharge Diet: Regular Discharge Activity: Resume usual activity Patient Instructions: Opioid Safety Discharge Attestations NPU Time Spent in Discharge Care*: less than 30 min Specific Discharge Activities: Specific discharge activities: educating patient, discussing with disease case manager rn/social workers/dc planners, documenting/other paperwork and evaluating patient/reviewing data Status at Discharge: Cognitive status at discharge: cognitively intact, Behavioral status at discharge: cooperative, Coding Level of Care Code Acute Code for Chg Fwd Diagnoses Major depressive disorder, recurrent severe without psychotic features F33.2 Disruptive mood dysregulation disorder F34.81 Autistic disorder F84.0 Intermittent explosive disorder in adult F63.81 Suicidal ideation R45.851
[2024-04-03 13:23] VITALS: BP 113/78; PULSE 78; RESP 17; TEMP 36.3; O2SAT 93
[2024-04-03 14:00] VITALS: BP 163/8; PULSE 108; RESP 16; TEMP 36.7; O2SAT 94
== END 2024-04-03 14:55 | disposition home or self-care (01) | DRG 885 ==
LOC: ER 13:20 → NP 15:32
PROVIDERS: Admitting Provider Psychiatry & Neurology Psychiatry; Emergency Provider Emergency Medicine; PCP Internal Medicine; Visit Provider Psychiatry & Neurology Psychiatry
DX: F33.2 Major depressive disorder, recurrent severe without psychotic features (principal); R45.851 Suicidal ideations; F34.81 Disruptive mood dysregulation disorder; F34.0 Cyclothymic disorder; F63.81 Intermittent explosive disorder; E66.9 Obesity, unspecified; Z68.31 Body mass index [BMI] 31.0-31.9, adult
CPT/HCPCS: 80053; 80306; 80307; 81001; 84443; 85025; 87086; 93005; 97150; 97165; 99285; Q0162

== ENCOUNTER 2024-08-09 13:02 | Inpatient (IN) | payer MEDICAID, SELFPAY ==
--- OUTSIDE RECORDS SUMMARY | 2020-12-31 07:00 | XMS_ITS | Continuity of Care Document ---
Author Organization [facility] Address [address] [id number] [address] Phone Care Team Providers Care Grant Writer Name Role Phone Sara Brown DDS Unavailable Unavaila ble Allergies, Adverse Reactions, Alerts Substance Reaction Status Criticality HALOPERIDOL LACTATE Active No Infor mation haloperidol Active No Information METHYLPHENIDATE HCL Active No Infor mation Medications Medication Instructions Dosage Effective Dates (start - stop) Status Comments diphenhydramine 25 mg tablet take 2 tablet by oral route - Active omeprazole 40 mg capsule,delayed release take 1 capsule by oral route every day before a meal 40 MG - Active SF 5000 Plus 1.1 % dental cream Apply a pea size amount to teeth with tooth brush for 2 minutes at night time. do no rinse. - Active bupropion HCl 75 mg tablet take 1 tablet by oral route 3 times every day 75 MG - Active fluoxetine 20 mg capsule take 1 capsule by oral route every day in the morning 20 MG - Active trazodone 50 mg tablet take 1 tablet by oral route 3 times every day after meals 50 MG - Active prazosin 1 mg capsule take 1 capsule by oral route 3 times every day 1 MG - Active hydroxyzine HCl 50 mg tablet take 1 tablet by oral route every day 50 MG - Active medroxyprogesterone 5 mg tablet take 1 tablet by oral route every day 5 MG - Active ibuprofen 600 mg tablet take 1 tablet by oral route 4 times every day with food 600 MG - Active 28 mg iron-800 mcg tablet - Active benztropine 0.5 mg tablet take 1 tablet by oral route 2 times every day 0.5 MG - Active lithium carbonate ER 450 mg tablet,extended release take 1 tablet by oral route 2 times every day 450 MG - Active ziprasidone 80 mg capsule take 1 capsule by oral route 2 times every day with food 80 MG - Active prazosin 5 mg capsule take 1 capsule by oral route every day 5 MG - No Longer Active olanzapine 5 mg tablet take 1 tablet by oral route every day 5 MG - No Longer Active oxcarbazepine 600 mg tablet take 1 tablet by oral route 2 times every day 600 MG - No Longer Active medroxyprogesterone 150 mg/mL intramuscular suspension inject 1 milliliter by intramuscular route every 3 months 150 MG - No Longer Active Procedures Procedure Date Resin-Based Composite One Surface, Posterior Resin-Based Composite One Surface, Anterior Resin-Based Composite One Surface, Anterior Resin-Based Composite One Surface, Anterior EDR Approval Note Patient Left / No Show Extraction, Erupted Tooth Or Exposed Tierra t (Elevati EDR Approval Note Periodontal Maintenance Bitewings Four Films Periodic Oral Eval Est Patient - Adult Medicaid EDR Approval Note Extraction, Erupted Tooth Or Exposed Tierra t (Elevati EDR Approval Note Periodontal Maintenance Periodic Oral Eval Est Patient - Adult Medicaid Bitewings Four Films Intraoral Periapical First Film Intraoral Periapical Each Additional Film Intraoral Periapical Each Additional Film Intraoral Periapical Each Additional Film EDR Approval Note PSYTX PT&/FAMILY 45 MINUTES No Work Today/No Charge EDR Approval Note Periodontal Scaling And Root Planing Four Or Mor Periodontal Scaling And Root Planing Four Or Mor Periodontal Scaling And Root Planing Four Or Mor Periodontal Scaling And Root Planing Four Or Mor Resin-Based Composite One Surface, Posterior EDR Approval Note Bitewings Four Films Panoramic Film Intraoral Periapical First Film Intraoral Periapical Each Additional Film Intraoral Periapical Each Additional Film Intraoral Periapical Each Additional Film Periodic Oral Evaluation Established Patient EDR Approval Note Resin-Based Composite Two Surfaces, Posterior EDR Approval Note Bitewings Four Films Panoramic Film Intraoral Periapical First Film Intraoral Periapical Each Additional Film Intraoral Periapical Each Additional Film Intraoral Periapical Each Additional Film Perio Probing Limited Oral Evaluation Problem Focused EDR Approval Note EDR Approval Note Advance Directives Directive Yes / No Effective Date File Name No Information Encounters Encounter Description Practice Location Reason(s) For Visit Diagnoses Date Provider Providers Copied on Encounter [facility], [id number]- [place], [place], [id number], [place] tel:[phone] [facility] No Information 1 Kevin Pathak. [address], [place], [id number], [place]. tel:[phone] Referring Provider: Sara Brown, [address] [place], [address]. tel:[phone] [facility], [id number]- [place], [id number], [place] tel:[phone] [facility] No Information 1 Juan Carlos De La Torre. [address] [place], [address], [place]. tel:[phone] Referring Provider: Wil Huitron, [address] [place], [address]. tel:[phone] [facility], [id number]- [place], [id number], [place] tel:[phone] [facility] Encounter for dental exam and cleaning w/o abnormal findings 1 Caron Schulte. [address] [place], [address], [place]. tel:[phone] Referring Provider: Eris Reardon, [address] [place], [address]. tel:[phone] ing Provider: Sara Brown, [address] [place], [address]. tel:[phone] [facility], [id number]- [place], [place], [id number], [place] tel:[phone] [facility] Encounter for dental exam and cleaning w/o abnormal findings 1 Bishop Gaytan. [address] [place], [address], [place]. tel:[phone] Referring Provider: Lucila Mays, [address] [place], [address]. tel:[phone] [facility], [id number]- [place], [id number], [place] tel:[phone] [facility] Encounter for dental exam and cleaning w/o abnormal findings 0 Mauri Smith. [address] [place], [address], [place]. tel:[phone] Referring Provider: Luis Dueñas, [address] [place], [address]. tel:[phone] ing Provider: Sara Brown, [address] [place], [address]. tel:[phone] [facility], [id number]- [place], [id number], [place] tel:[phone] [facility] Encounter for dental exam and cleaning w/o abnormal findings 0 Caron Schulte. [address] [place], [address], [place]. tel:[phone] Referring Provider: Eris Reardon, [address] [place], [address]. tel:[phone] PSYTX PT&/FAMILY 45 MINUTES [facility], [id number]- [place], [id number], [place] tel:[phone] [facility]al [facility] Integration Generalized Anxiety Disorder 9 Regina Kemp. [address], [place], [id number], [place]. tel:[phone] Referring Provider: Viridiana Tapia, [address] [place], [address]. tel:[phone] [facility], [id number]- [place], [id number], [place] tel:[phone] [facility] Encounter for dental exam and cleaning w/o abnormal findings 9 Caron Schulte. [address] [place], [address], [place]. tel:[phone] Referring Provider: Eris Reardon, [address] [place], [address]. tel:[phone] [facility], [id number]- [place], [id number], [place] tel:[phone] [facility] Encounter for dental exam and cleaning w/o abnormal findings Caron Schulte. [address] [place], [address], [place]. tel:[phone] Referring Provider: Eris Reardon, [address] [place], [address]. tel:[phone] [facility], [id number]- [place], [id number], [place] tel:[phone] [facility] Encounter for dental exam and cleaning w/o abnormal findings Mauri Smith. [address] [place], [address], [place]. tel:[phone] Referring Provider: Luis Dueñas, [address] [place], [address]. tel:[phone] [facility], [id number]- [place], [id number], [place] tel:[phone] [facility] Encounter for dental exam and cleaning w/o abnormal findings Caron Schulte. [address] [place], [address], [place]. tel:[phone] Referring Provider: Eris Reardon, [address] [place], [address]. tel:[phone] [facility], [id number]- [place], [place], [id number], [place] tel:[phone] [facility] Encounter for dental exam and cleaning w/o abnormal findings 7 Mauri Smith. [address] [place], [address], [place]. tel:[phone] Referring Provider: Luis Dueñas, [address] [place], [address]. tel:[phone] [facility], [id number]- [facility], [place], [place], [id number], [place] tel:[phone] [facility] Encounter for dental exam and cleaning w/o abnormal findings Mauri Smith. [address] [place], [address], [place]. tel:[phone] Referring Provider: Luis Dotson T, [address] [place], [address]. tel:[phone] Family History Family Member Type Diagnosis Age At Onset No Information Payers Payer name Insurance type Covered alliance party ID Aparna mejia(s) D Medicaid [id number] Social History Type Description Quantity Date Captured Comments Alcohol Use Details No Caffeine Use Details Unknown Tobacco Use Status No Information Smoking Status No Information Sex Male Sexual Orientation Don't Know Gender Identity Male Chief Complaint And Reason For Visit No Information Reason For Referral Reason For Referral No Information History Of Present Illness Encounter Date Complaint History Of Prese nt Illness No Information Functional Status Date Functional Assessmen t No Information Instructions Date Instruction Additional Infor mation No Information Assessments Type Assessment Date No Information Patient Care Teams Name Effective Dates (start - stop) Status Members No Information
[2024-08-09 13:04] VITALS: BP 132/89; PULSE 96; RESP 16; TEMP 36.8; O2SAT 98; BMI 34.6
--- NOTE | 2024-08-09 13:10 | ED.C_ITS ---
HPI - Psych 2 General: Chief Complaint: Psychiatric Symptoms Stated Complaint: SI/HI Time Seen by Provider: 08/09/24 13:03 History of Present Illness: 29-year-old male with a history of autis m, disruptive mood dysregulation disorder and depression who presents to the emergency room from long-term by ambulance after having had violent behavior and threatening to cut his own wrists. He denies all this now and appears calm. According to an affidavit that was filled out by persons at the home where he is staying he had threatened to kill his girlfriend and the staff. He also threatened to cut his own wrist and his throat. They attempted multiple times to divert his behavior and he continued to escalate. Related Data Home Medications ?Medication ?Instructions ?Recorded ?Confirmed loratadine 10 mg tablet (Claritin) 10 mg PO DAILY PRN Allergy Symptoms 10/06/21 07/24/24 multivitamin with folic acid 400 1 tab PO DAILY 07/24/24 mcg tablet (Daily-Shabbir (with folic acid)) naphazo HCl 0.025 %-hyprome 0.2 1 drp ophthalmic (eye) QID PRN 12/22/21 07/24/24 %-ps 80 0.5 %-Zn sulf 0.25 % eye Allergy Symptoms drops (Clear Eyes Complete) omeprazole 40 mg capsule,delayed 40 mg PO BID 02/04/24 07/24/24 release sildenafil 100 mg tablet 100 mg PO DAILY PRN erectile 04/01/24 07/24/24 disorder Previous Rx's ?Medication ?Instructions ?Recorded ziprasidone HCl 60 mg capsule 60 mg PO DAILY #30 caps 02/14/24 (Geodon) bupropion HCl 150 mg 24 hr tablet, 150 mg PO DAILY #30 tabs 07/24/24 extended release bupropion HCl 300 mg 24 hr tablet, 300 mg PO DAILY #30 tabs 07/24/24 extended release (Wellbutrin XL) quetiapine 200 mg tablet (Seroquel) 200 mg PO BEDTIME #30 tabs 07/24/24 venlafaxine 150 mg 150 mg PO DAILY #14 caps capsule,extended release 24 hr (Effexor XR) venlafaxine 75 mg capsule,extended 75 mg PO DAILY #14 caps 07/28/24 release 24 hr (Effexor XR) Allergies Allergy/AdvReac Type Severity Reaction Status Date / Time haloperidol (From Haldol) Allergy Unknown Verified 04/13/24 11:45 methylphenidate (From Allergy Unknown Verified 04/13/24 11:45 Ritalin) Review of Systems 2 Narrative: Constitutional symptoms: Negative except as documented in HPI. Skin symptoms: Negative except as documented in HPI. Eye symptoms: Negative except as documented in HPI. ENMT symptoms: Negative except as documented in HPI. Respiratory symptoms: Negative except as documented in HPI. Cardiovascular symptoms: Negative except as documented in HPI. Gastrointestinal symptoms: Negative except as documented in HPI. Genitourinary symptoms: Negative except as documented in HPI. Musculoskeletal symptoms: Negative except as documented in HPI. Neurologic symptoms: Negative except as documented in HPI. Psychiatric symptoms: Negative except as documented in HPI. Endocrine symptoms: Negative except as documented in HPI. PFSH ED 2 PFSH: Medical History On combination antipsychotic drug therapy Psychiatric care Major depressive disorder, recurrent, moderate Disruptive mood dysregulation disorder Autistic disorder Surgical History H/O esophagogastroduodenoscopy (05/30/21) History of foot surgery right- 2020 Social History Smoking and tobacco/nicotine status: never used tobacco/nicotine Physical Exam 2 Narrative: EXAM NARRATIVE: General: Alert, no acute distress. Skin: Warm, dry. Head: Normocephalic, atraumatic. Neck: Supple, trachea midline. Eye: Extraocular movements are intact. Ears, nose, mouth and throat: mucosa moist. Cardiovascular: Regular, Normal peripheral perfusion. Respiratory: Lungs are clear to auscultation, respirations are non-labored, breath sounds are equal, Symmetrical chest wall expansion. Gastrointestinal: Soft, Nontender, Non distended Musculoskeletal: Normal ROM, no deformity. Neurological: Alert and oriented, No focal neurological deficit observed. Psychiatric: Cooperative, odd affect, currently denies any homicidal suicidal thoughts. Course 2 Vital Signs: Vital signs: Vital Signs Temperature 98.2 F 08/09/24 13:04 Pulse Rate 96 08/09/24 13:04 Respiratory Rate 16 08/09/24 13:43 Blood Pressure 132/89 08/09/24 13:04 Pulse Oximetry 98 08/09/24 13:04 Oxygen Delivery Me thod Room Air 08/09/24 13:43 MDM - Psych Medical Decision Making Differential diagnosis: Patient with reported depression and suicidal ideation. concerns for infection, alcohol intoxication, cardiac issues or other medical problems prior to psychiatric admission. Workup: labwork, ekg ordered to evaluate the pathologies and to clear the patient medically prior to psychiatric admission Lab Review: Laboratory results were reviewed and interpreted by myself the emergency room physician. - Medically cleared. - EKG shows no ischemic changes. - Blood alcohol level is negative, -Tylenol and salicylate levels are negative. ?Urinalysis pending - No anemia. - BUN and creatinine are within normal limits. Consultation: I spoke with Dr. Payne who agrees to admission. Assessment and plan: Suicidal ideation Homicidal ideation Autism -Admission to neuropsychiatric unit for continued evaluation and treatment. - All lab work was reviewed and interpreted personally by myself, the ER physician - Evaluation and treatment of this problem were appropriate in the emergency setting Lab Data 08/09/24 13:13 08/09/24 13:13 Laboratory Results WBC 5.93 10^3/uL (3.29-11.43) 08/09/24 13:13 RBC 5.23 10^6/uL (3.85-5.65) 08/09/24 13:13 Hgb 15.60 g/dL (11.27-16.99) 08/09/24 13:13 Hct 46.1 % (37-53) 08/09/24 13:13 MCV 88.1 fl (82-101) 08/09/24 13:13 MCH 29.8 pg (27-33) 08/09/24 13:13 MCHC 33.8 g/dL (30-55) 08/09/24 13:13 RDW 12.1 % (12.1-15.1) 08/09/24 13:13 Plt Count 169 10^3/cmm (157-399) 08/09/24 13:13 MPV 10.2 fL (7.4-10.4) 08/09/24 13:13 Neut % (Auto) 52.9 % 08/09/24 13:13 Lymph % (Auto) 33.7 % 08/09/24 13:13 Bennett % (Auto) 10.3 % 08/09/24 13:13 Eos % (Auto) 2.0 % 08/09/24 13:13 Baso % (Auto) 0.8 % 08/09/24 13:13 Neut # (Auto) 3.13 10^3/uL (1.8-7.7) 08/09/24 13:13 Lymph # (Auto) 2.0 10^3/uL (0.8-4.8) 08/09/24 13:13 Bennett # (Auto) 0.6 10^3/uL (0.2-0.9) 08/09/24 13:13 Eos # (Auto) 0.1 10^3/uL (0.0-0.8) 08/09/24 13:13 Baso # (Auto) 0.1 10^3/uL (0.0-0.1) 08/09/24 13:13 Nucleated RBC % (auto) 0 % 08/09/24 13:13 Nucleated RBCs # 0.0 /100WBC 08/09/24 13:13 Sodium 143 mmol/L (136-145) 08/09/24 13:13 Potassium 4.3 mmol/L (3.5-5.1) 08/09/24 13:13 Chloride 107 mmol/L (98-107) 08/09/24 13:13 Carbon Dioxide 23 mmol/L (22-29) 08/09/24 13:13 Anion Gap 17.3 (5-19) 08/09/24 13:13 BUN 16 mg/dL (6-20) 08/09/24 13:13 Creatinine 1.1 mg/dL (0.7-1.2) 08/09/24 13:13 GFR Calculation 78.6 mL/min (90-130) L 08/09/24 13:13 Glucose 85 mg/dL (65-115) 08/09/24 13:13 Calculated Osmolality 296 mOsm/kg (285-295) H 08/09/24 13:13 Calcium 9.4 mg/dL (8.5-10.5) 08/09/24 13:13 Total Bilirubin 0.5 mg/dL (0.15-1.2) 08/09/24 13:13 AST 18 U/L (0-40) 08/09/24 13:13 ALT 43 U/L (0-41) H 08/09/24 13:13 Alkaline Phosphatase 101 U/L (40-130) 08/09/24 13:13 Total Protein 7.2 g/dL (6.6-8.7) 08/09/24 13:13 Albumin 4.1 g/dL (3.5-5.2) 08/09/24 13:13 Globulin 3.1 g/dL (1.3-4.6) 08/09/24 13:13 TSH 1.25 uIU/mL (0.27-4.20) 08/09/24 13:13 Amorphous Sediment Not Reportable 08/09/24 13:50 Salicylates < 0.3 mg/dL (3-10) L 08/09/24 13:13 Urine Opiates Screen Negative ng/mL (Negative) 08/09/24 13:50 Acetaminophen < 5.0 ug/mL (10-30) L 08/09/24 13:13 Ur Barbiturates Screen Negative ng/mL (Negative) 08/09/24 13:50 Ur Phencyclidine Scrn Negative ng/mL (Negative) 08/09/24 13:50 Ur Amphetamines Screen Negative ng/mL (Negative) 08/09/24 13:50 U Benzodiazepines Scrn Negative ng/mL (Negative) 08/09/24 13:50 Urine Cocaine Screen Negative ng/mL (Negative) 08/09/24 13:50 U Marijuana (THC) Screen Negative ng/mL (Negative) 08/09/24 13:50 Ethyl Alcohol < 10 mg/dL (0-10) 08/09/24 13:13 No radiology studies performed this visit Discharge Plan Discharge Patient Disposition: Admitted As Inpatient Clinical Impression: Suicidal ideation, Homicidal ideations, Autistic disorder, Intermittent explosive disorder in adult Condition: Stable Coding Level of Care Code ED [employer] 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
[2024-08-09 13:19] LABS: Hematocrit 46.1 % (37-53); Hemoglobin 15.60 g/dL (11.27-16.99); Mean Corpuscular HGB Conc 33.8 g/dL (30-55); Mean Corpuscular Hemoglobin 29.8 pg (27-33); Mean Corpuscular Volume 88.1 fl (82-101); Nucleated Red Blood Cells % 0 %; Platelet Count 169 10^3/cmm (157-399); Red Blood Count 5.23 10^6/uL (3.85-5.65); White Blood Count 5.93 10^3/uL (3.29-11.43)
[2024-08-09 13:43] VITALS: RESP 16
[2024-08-09 13:45] LABS: Alanine Aminotransferase 43 U/L (0-41); Albumin Level 4.1 g/dL (3.5-5.2); Alkaline Phosphatase 101 U/L (40-130); Anion Gap 17.3 (5-19); Aspartate Amino Transferase 18 U/L (0-40); Blood Urea Nitrogen 16 mg/dL (6-20); Calcium 9.4 mg/dL (8.5-10.5); Carbon Dioxide 23 mmol/L (22-29); Chloride 107 mmol/L (98-107); Creatinine Clr Calc Pharmacy 159.3789; Globulin 3.1 g/dL (1.3-4.6); Glucose 85 mg/dL (65-115); Osmolality Calculated 296 mOsm/kg (285-295); Potassium 4.3 mmol/L (3.5-5.1); Sodium 143 mmol/L (136-145); Thyroid Stimulating Hormone 1.25 uIU/mL (0.27-4.20); Total Protein 7.2 g/dL (6.6-8.7)
[2024-08-09 13:47] LABS: Acetaminophen < 5.0 ug/mL (10-30); Alcohol Level < 10 mg/dL (0-10); Salicylate < 0.3 mg/dL (3-10)
[2024-08-09 14:10] LABS: Glucose Urine UA Negative (Normal); Nitrate Urine Negative (Negative)
[2024-08-09 14:12] LABS: Add Urine Microscopic? YES
[2024-08-09 14:16] LABS: PCP Screen Urine Negative (Negative)
[2024-08-09 14:20] LABS: Specific Gravity, Urine 1.034 (1.005-1.030)
--- NOTE | 2024-08-09 14:51 | ECG_ITS ---
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 Measurements Intervals [place] Rate: 93 P: 28 LA: 145 QRS: -20 QRSD: 106 T: 76 QT: 362 QTc: 452 Interpretive Statements SINUS RHYTHM NONSPECIFIC T-WAVE ABNORMALITY Compared to ECG 04/01/2024 12:11:38 T-wave abnormality now present Indeterminate axis no longer present Electronically Signed On 08-10-2024 08:53:51 CDT by Ezequiel Man M.D. [email or web address]
[2024-08-09 14:53] VITALS: O2SAT 98
--- NOTE | 2024-08-09 15:20 | PC.PHAR ---
Addendum entered by Corrine Escalera 08/09/24 15:20: Pt is from [facility]-caregiver has a med list. Original Note: P
[2024-08-09 16:16] VITALS: BP 110/74; PULSE 78; RESP 16; TEMP 37; O2SAT 98
[2024-08-09 20:09] VITALS: BP 145/92; PULSE 93; RESP 18; TEMP 36.7; O2SAT 96
[2024-08-10 06:00] VITALS: BP 117/72; PULSE 94; RESP 18; O2SAT 96
--- NOTE | 2024-08-10 07:30 | W.PM.NPUH&PS ---
Providers/Chief Complaint Admitting Physician: Raymundo Cervantes MD Primary Care Provider: Kenneth Bravo DO Chief Complaint: SI/HI HPI NPU History of Present Illness Josh Colindres is a 29 year old male who reports that he had been on Facebook earlier today and someone had made a series of extremely negative comments about the patient posting Soshe feet online and the patient reports that he felt extremely angry and stated that he had made statements stating that he was going to cut his throat and his own wrist. An affidavit was filled out that had suggested that the patient had made threats to kill his girlfriend and the staff at the place he has been residing at, [facility]. The patient has a history of autistic spectrum disorder, disruptive mood dysregulation disorder and depression and reports that he became angry and states that he no longer feels like harming himself. He did report that he has problems when he becomes angry and states that he does have a tendency to make things worse. He reports a history of poor impulse control. He reports that his depression has actually been better over the past few weeks and reports that he does not feel like killing himself. He reports no anhedonia. He denies any reva. He denies any psychotic symptoms. He reports good motivation. He reports no recent psychiatric hospitalization since his last hospitalization here at the neuropsychiatric unit in March 2024. He does report that he feels bullied at times by people on Facebook and states that people struggle to understand him. He does report having restricted areas of interest including having a love of women's feet. He denies any feelings of hopelessness or worthlessness. He reports no recent medical problems. He denies any recent changes in his medication regimen since his last hospitalization. He denies any history of recent changes in his social situation as well since his last hospitalization. Current medications: bupropion HCl XL (Wellbutrin XL) 300 mg PO DAILY bupropion HCl XL 150 mg PO DAILY loratadine (Claritin) 10 mg PO DAILY PRN multivitamin with folic acid 400 mcg (Daily-Shabbir (with folic acid)) 1 tab PO DAILY naphazo HCl-hpm-ps 80-Zn sulf 0.025-0.2-0.5 % (Clear Eyes Complete) 1 drp ophthalmic (eye) QID PRN omeprazole 40 mg PO BID quetiapine (Seroquel) 200 mg PO BEDTIME sildenafil 100 mg PO DAILY PRN venlafaxine ER (Effexor XR) 75 mg PO DAILY venlafaxine ER (Effexor XR) 150 mg PO DAILY ziprasidone HCl (Geodon) 60 mg PO DAILY Excerpt from NPU Discharge Summary from 04/03/24 Discharge Diagnosis (1) Major depressive disorder, recurrent severe without psychotic features: Status: Acute (2) Disruptive mood dysregulation disorder: Status: Acute (3) Autistic disorder: Status: Acute (4) Intermittent explosive disorder in adult: Status: Acute (5) Suicidal ideation: Status: Resolved Reason for Visit CC: mhe. History of Present Illness Josh Colindres is a 29 year old male who presented to the emergency department with the following report: Chief Complaint: Psychiatric Symptoms Stated Complaint: mhe Time Seen by Provider: 04/01/24 11:45 History of Present Illness: 29-year-old man with history of depression, autistic disorder and issues with psychosis who presents emergency room after having an explosive episode at the prison he [facility]. Apparently he had busted out windows and had poured some sort of oil on himself and threatened to burn himself in the house down. When the police arrived he asked them to shoot him in the head. When I talk to him he is very quiet and appears nonviolent at this time. He says he has anger issues and that is about all he will tell me. He goes back to reading his book. He was admitted to the neuropsychiatric unit for definitive treatment of those issues. He is known to the psychiatric community at [facility] through inpatient and outpatient services and he presents as he often does with a significant agitated episode and as has happened in the past he presents reporting that there is no need to do anything he was just angry and he is fine now. He had a hospitalization back in January 2024 and an excerpt of that discharge summary is included below for context. He has been seeing his outpatient provider and there has been no identified need for any changes. He presents today reporting that he was being out of control at his [facility] and he was angry about something that he can even remember what it was. He reports that they called the police and while the police were there he did acknowledge that he was upset and he did tell them to shoot him in the head and just kill him. He reports now that that was just out of anger and that he is absolutely fine he is not angry anymore and he denies needing to be here he denies any need for any medication changes. He reports that his medications have been working quite well. We agreed we would talk to his [facility], his guardian and determine whether this represents some significant decompensation or a reflection of his intermittent explosive disorder and if so we will make this a quick visit. Per his 02/07/2024 [facility] inpatient psychiatric discharge summary: Discharge Diagnosis (1) Major depressive disorder, recurrent severe without psychotic features: Status: Acute (2) Disruptive mood dysregulation disorder: Status: Acute (3) Autistic disorder: Status: Acute Reason for Visit Reason for Visit: si/vomiting Brief History: History of Present Illness Josh Colindres is a 28 year old male who presented to the emergency department with the following report: Chief Complaint: Psychiatric Symptoms Stated Complaint: si/vomiting Time Seen by Provider: 02/04/24 17:34 Source: patient and EMS Mode of arrival: EMS Limitations: no limitations History of Present Illness: 28-year-old male who states he has been having suicidal thoughts he states that he has a plan of slitting his wrist with glass. Patient denies any worse improved factors. He states he is also been having abdominal pains are going on for days denies any fevers. Associated symptoms: Reports depression and suicidal ideation. He was admitted to the neuropsychiatric unit for definitive treatment of those issues. He is well-known to [facility] through inpatient and outpatient services. His most recent outpatient visit with this provider was in December of this year. His most recent inpatient visit was in March 2022 and an excerpt of that discharge summary is included below for context. His presentation however is fairly consistent with past hospitalizations with intrusive thoughts about something leading to him having great distress and suicidal thinking. An excerpt of his last inpatient discharge summary is included for context and the lack of substantive changes. He presents today reporting that this is all a misunderstanding. He reports that in general he has been doing well since his last hospitalization that is noted below. He says that his medications have been working and that this was a poor choice on his part because he got angry. He reports that after he got angry he started making comments and threats. He reports the settings going to cut himself but had no intention to cut himself. He reports he reported some suicidal thoughts but denies that they actually existed and that he was just angry and not wanting to necessarily be there. He reports that the medications the outpatient team have him on are effective and he has no concerns. We discussed a plan to reach out to his facility and talk to them about what staffing concerns they might have and discuss a plan to monitor him and consider discharge within the next 48 hours. 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 He was admitted to the neuropsychiatric unit for further evaluation and treatment. The patient has had multiple visits to the emergency department over the past year after having episodes of agitation and anger where he would make threats towards various staff members. He reports that he has been diagnosed with Asperger's disorder and has been residing in an independent living facility under [facility] since 2014. He reports that much of his frustration has to do with depression that has been present for several months. He reports a lack of interest in completing any activities. He reports low motivation and low energy. He reports having sleep continuity disruption. He did report that his depression had been improving and reports that he had been more hopeful. He denies any suicidal ideation but states that when he becomes upset he will make threats to hurt himself or others. The patient reports that he had previously struggled with having a sexual attraction to people's feet and had previously grabbed women's feet and had attempted to ask strangers about their shoes. He reports that he had been prescribed intramuscular Depo-Provera for about 5 years ending in 2019. He reports that his sexual fetish and recurring obsessive thoughts about women's feet had declined substantially but he reports that he has been frustrated that he has had a permanent change in his libido as he had been unable to masturbate or become erect. He describes having his primary problems with engaging with others including engaging with potential sutures has been impaired despite normal levels of testosterone. He reports that he does not feel like he can be normal and reports that he has been struggling with managing his anger. Inpatient psychiatric history: He reports multiple inpatient hospitalizations with most recent hospitalization here at [facility] in June 2021. Outpatient psychiatric history: He is followed at [facility] outpatient behavioral health clinic with most recent visit approximately 1 month ago. Medical history: Gastritis Surgeries: Foot surgery Allergies: Haldol/Ritalin Medications: Remeron 15 mg at night, omeprazole 40 mg twice a day, Seroquel 200 mg at night, Geodon 40 mg at night, Wellbutrin 450 mg daily Drug and alcohol history: None Legal history: None Social history: The patient was born in [facility] and lived with his biological mother until the age of 6. He has no contact with his biological father. He reports having been placed in foster care and was eventually adopted by his foster mom's mother. He reports that he had problems with learning and dropped out of school in the 11th grade and has not obtained his GED. He had reported having problems with anger and agitation with the patient reporting no history of sexual physical or emotional abuse. He had acknowledged having been evaluated for having behavioral problems as a child. He has no known family psychiatric history noted. His legal guardian is currently a local consumer attorney in [place] [facility]. He has been living under the care of [facility] since 2014 where he does not work and does not attend a day program. Hospital Course Hospital Course He quickly acclimated to the individual, group and milieu therapies provided. He presented as he often has recently with reports of lethality and irritability or agitation at his facility. Unlike historically however, he has been much better at identifying that the situations almost always represent some intermittent explosive moment and not a true decompensation. He was able to report that he is having some frustrating interactions with the staff that led to the comments but he denied having any issue. Given the greater intensity of behaviors this time we did monitor him briefly to make sure that he was in fact fine. We did not make any medication changes. The social work team work with him to make sure he had outpatient appointments in place. He had significant improvement during the stay compared to the initial reports. And he was able to contract for safety outside the hospital prior to discharge. During the hospitalization, patient had routine laboratory studies which were within normal limits except for few outliers. Additionally there was a general medical evaluation which was also within normal limits and revealed no new acute processes. At the time of discharge, he denied psychosis or lethality. Mood and anxiety were well managed. Patient endorsed a plan to avoid all drugs of abuse and follow-up with the aftercare recommendations of the treatment team. Patient was evaluated and deemed to be absent credible lethality, and had achieved the maximum benefit from an inpatient hospitalization, so was discharged Josh is a 29-year-old male, who presents to [facility] for medication management and follow up for major depressive disorder and autistic disorder. He was last seen April 13, 2024. The patient is a 29-year-old male who describes a history of depression that has worsened since a change in medication approximately six months ago. He was originally on Zoloft, which was working well until it was tapered down and stopped in favor of Effexor. The patient reports noticing a significant decrease in mood and enjoyment in activities following this change, expressing, I'm not feeling that sudha or happiness anymore. Despite acknowledging some initial improvements, the patient retrospectively assesses the medication switch as a mistake, stating, I didn't realize how good I actually had it with that other pill. While initially reporting feeling somewhat better, the patient later admitted to fabricating positive progress, saying, I was lying then, in reference to prior checks about his mood improvements with Effexor. He describes persistent feelings of emptiness, particularly in his chest, and an absence of warmth or sudha that he previously experienced with Zoloft. The patient denies any suicidal ideation, stating, No, it's just what other symptoms of depression besides just not finding sudha? His physical health has shown some improvement with a noted weight loss of 18 pounds, attributed to reduced food intake possibly due to resolved stomach inflammation. The patient denies any recent ER visits and has been physically active, reporting regular exercise and walking. Regarding personal relationships, the patient recently began a relationship with a girlfriend he met in November, which has been ongoing despite geographical distance. He reports feeling really depressed on Bond's Day, despite being with her. He has linked some of his mood changes, especially after medication adjustments in March, to his overall lack of sudha. The patient indicates that the current regimen is not effective, leading to plans to taper off Effexor and restart Zoloft at 50 mg daily. This decision was met with relief from the patient, who has noticed no significant improvement on Effexor. The patient confirms getting adequate sleep and no recent anger issues, indicating a resolution to his past anger management problems. The patient denies any suicidal ideation, homicidal ideation, and self-harm. There are no reports or indications of domestic violence. The patient confirms, No, it's just what other symptoms of depression besides just not finding sudha? indicating a focus on mood symptoms. The patient appears to have low acute risk for self-harm or harm to others but acknowledges a lack of sudha and an ongoing sense of emptiness. Mood: Depressed. Sleep: Sleeping well Appetite: Adequate Level of energy: Adequate Level of anxiety: No anxiety Ability to do ADLs: Independent Frightening/uncomfortable/or racing thoughts: Denies Thoughts of , suicide, or violence towards others: Denies Hearing voices or seeing hallucinations/visions: Denies ROS - General: Reports weight loss of 18 pounds. - Psychiatric: Reports depressive moods and lack of enjoyment. Denies suicidal ideation. - Gastrointestinal: Reports reduced appetite and resolved stomach inflammation. - Musculoskeletal: Reports leg pains. - Sleep: Reports adequate sleep. Objective Objective: - Appearance: Nunu very tall overweight man. He wears jeans and a T-shirt. His hygiene is poor. His hair appears greasy. It falls in his face and he frequently brushes it out of his face during the visit. ? Mood: Reports feeling depressed with persistent emptiness ? Thought content: Denies suicidal ideation ? Cognition: Reports no significant issues with anger management - Intellect: Estimated to be below average. June 30, 2023 hemoglobin A1c was 4.6. Lipid panel was complete with triglycerides high at 242 and HDL low at 26 Assessment & Plan Assessment: Josh requests to switch back to the Zoloft indicating retrospectively he feels it works better than the Effexor. Plan: Continue Geodon 40 mg at bedtime Continue Seroquel 200 mg daily Continue Wellbutrin XL 450 mg daily Taper Effexor to stop. Instructed to take 150 mg for 2 weeks and then decrease to 75 mg for 2 weeks and then stop. Start Zoloft 50 mg daily. Prescription refills are sent to [facility] pharmacy on [address] [facility] Follow-up in 4 weeks.? Josh and his staff instructed if symptoms worsen or the need to be seen sooner to call the clinic for an earlier appointment. Meds NPU Home Medications ?Medication ?Instructions ?Recorded ?Confirmed ?Last Taken ?Type loratadine 10 mg tablet (Claritin) 10 mg PO DAILY PRN Allergy Symptoms 10/06/21 08/09/24 Unknown History multivitamin with folic acid 400 1 tab PO DAILY 10/06/21 08/09/24 08/09/24 History mcg tablet (Daily-Shabbir (with folic acid)) naphazo HCl 0.025 %-hyprome 0.2 1 drp ophthalmic (eye) QID PRN 12/22/21 08/09/24 Unknown History %-ps 80 0.5 %-Zn sulf 0.25 % eye Allergy Symptoms drops (Clear Eyes Complete) omeprazole 40 mg capsule,delayed 40 mg PO BID 02/04/24 08/09/24 08/09/24 History release ziprasidone HCl 60 mg capsule 60 mg PO DAILY #30 caps 02/14/24 08/09/24 08/09/24 Rx (Geodon) sildenafil 100 mg tablet 100 mg PO DAILY PRN erectile 04/01/24 08/09/24 Unknown History disorder bupropion HCl 150 mg 24 hr tablet, 150 mg PO DAILY #30 tabs 07/24/24 08/09/24 08/09/24 Rx extended release bupropion HCl 300 mg 24 hr tablet, 300 mg PO DAILY #30 tabs 07/24/24 08/09/24 08/09/24 Rx extended release (Wellbutrin XL) venlafaxine 150 mg 150 mg PO DAILY #14 caps 07/28/24 08/09/24 08/09/24 Rx capsule,extended release 24 hr (Effexor XR) venlafaxine 75 mg capsule,extended 75 mg PO DAILY #14 caps 07/28/24 08/09/24 08/09/24 Rx release 24 hr (Effexor XR) bismuth subsalicylate 525 mg/15 mL 525 mg PO Q30M PRN Indigestion 08/09/24 08/09/24 Unknown History oral suspension calcium carbonate 500 mg PO Q4H PRN Indigestion 08/09/24 08/09/24 Unknown History metoclopramide HCl 10 mg tablet 10 mg PO QID PRN Nausea 08/09/24 08/09/24 Unknown History (Reglan) ondansetron 4 mg disintegrating 4 mg PO Q6H PRN Nausea And Vomiting 08/09/24 08/09/24 Unknown History tablet phenylephrine 0.25 %-mineral oil 1 applic MA QID PRN Rectal 08/09/24 08/09/24 Unknown History 14 %-petrolatm 74.9 % rectal Discomfort ointment (Hemorrhoidal(phenyleph-min oil-petrolat)) quetiapine 200 mg tablet (Seroquel) 200 mg PO BEDTIME 08/09/24 08/09/24 08/08/24 History Allergies Allergy/AdvReac Type Severity Reaction Status Date / Time haloperidol (From Haldol) Allergy Unknown Verified 04/13/24 11:45 methylphenidate (From Allergy Unknown Verified 04/13/24 11:45 Ritalin) PFSH NPU PFSH: Medical History On combination antipsychotic drug therapy Psychiatric care Major depressive disorder, recurrent, moderate Disruptive mood dysregulation disorder Autistic disorder Surgical History H/O esophagogastroduodenoscopy (05/30/21) History of foot surgery right- 2020 Social History Smoking and tobacco/nicotine status: never used tobacco/nicotine Mental Status Exam MSE Comments: This is an extremely tall, overweight, white male, in hospital scrubs with adequate grooming, and fleeting eye contact. He was drawing pictures of superheroes. No abnormal involuntary motor movements, tics tremors or stereotypies. He was cooperative with exam in no acute distress. Speech had normal rate and volume, and monotone speech. Mood described as good. His affect was euthymic. Thought process was linear and organized. Thought content: patient denied suicidal or homicidal ideation, there were no delusions reported or noted, he denied any auditory or visual hallucinations. He did not appear to be responding to internal stimuli. Attention and concentration were intact, and memory appeared unreliable, but none were formally tested. He is alert and oriented to person, place, time and situation. Insight and judgment are limited. Impulse control is poor. Vitals/I&O/Wt Last Vital Signs Temp 98.6 F 08/09/24 16:16 Pulse 78 08/09/24 16:16 Resp 16 08/09/24 16:16 BP 110/74 08/09/24 16:16 Pulse Ox 98 08/09/24 16:16 O2 Del Method Room Air 08/09/24 16:17 Weight last 48 hrs Weight 142.882 kg Data NPU 08/09/24 13:13 08/09/24 13:13 A&P Assessment and plan (1) Disruptive mood dysregulation disorder: (2) Major depressive disorder, recurrent severe without psychotic features: (3) Autistic disorder: (4) Intermittent explosive disorder in adult: (5) Suicidal ideation: Plan This is a 29-year-old, white male, with autism, major depressive disorder, recurrent, disruptive mood dysregulation disorder, who presents with another act of acute anxiety and anger leading to involuntary hospitalization triggered by negative facebook comments. RECOMMENDATION AND PLAN: 1.? Restart outpatient medications. 2.? Therapeutic observation 15-minute checks on the unit 3.? Encourage individual, group and milieu therapies. 4.? Attempt to gather collateral information. PDMP PDMP Reviewed: Not Reviewed Involuntary Hold Information Hold Status: Legal Status: Active Guardianship 96 Hour Hold: 96 Hour Involuntary Admission: No Attestations NPU Medical Necessity Statement*: Inpatient hospitalization is medically necessary and the clinically appropriate intervention at this time. We will monitor medications and make changes as indicated. Patient will be in the hospital for over two midnights. The patient's likely length of stay is 2-4 days. Coding Level of Care Code Acute Code for Chg Fwd Diagnoses Disruptive mood dysregulation disorder F34.81 Major depressive disorder, recurrent severe without psychotic features F33.2 Autistic disorder F84.0 Intermittent explosive disorder in adult F63.81 Suicidal ideation R45.851
[2024-08-10] MEDS: multivitamin therapeutic Tablet 1 TAB PO (07:55)
[2024-08-10] MEDS: venlafaxine ER (24HR) 75 mg Capsule PO (07:56)
[2024-08-10] MEDS: venlafaxine ER (24HR) 150 mg Capsule PO (07:56)
[2024-08-10 12:18] VITALS: BP 117/72; PULSE 94; RESP 18; TEMP 36.7; O2SAT 96
--- NOTE | 2024-08-10 12:43 | P.NPUDS_ITS ---
Diagnoses at Discharge Discharge Diagnosis (1) Disruptive mood dysregulation disorder: Status: Acute (2) Major depressive disorder, recurrent severe without psychotic features: Status: Acute (3) Autistic disorder: Status: Acute (4) Intermittent explosive disorder in adult: Status: Acute (5) Suicidal ideation: Status: Resolved Reason for Visit Reason for Visit: SI/HI Brief History: History of Present Illness Josh Colindres is a 29 year old male who reports that he had been on Facebook earlier today and someone had made a series of extremely negative comments about the patient posting [employer] online and the patient reports that he felt extremely angry and stated that he had made statements stating that he was going to cut his throat and his own wrist. An affidavit was filled out that had suggested that the patient had made threats to kill his girlfriend and the staff at the place he has been residing at, [facility]. The patient has a history of autistic spectrum disorder, disruptive mood dysregulation disorder and depression and reports that he became angry and states that he no longer feels like harming himself. He did report that he has problems when he becomes angry and states that he does have a tendency to make things worse. He reports a history of poor impulse control. He reports that his depression has actually been better over the past few weeks and reports that he does not feel like killing himself. He reports no anhedonia. He denies any reva. He denies any psychotic symptoms. He reports good motivation. He reports no recent psychiatric hospitalization since his last hospitalization here at the neuropsychiatric unit in March 2024. He does report that he feels bullied at times by people on Facebook and states that people struggle to understand him. He does report having restricted areas of interest including having a love of women's feet. He denies any feelings of hopelessness or worthlessness. He reports no recent medical problems. He denies any recent changes in his medication regimen since his last hospitalization. He denies any history of recent changes in his social situation as well since his last hospitalization. Current medications: bupropion HCl XL (Wellbutrin XL) 300 mg PO DAILY bupropion HCl XL 150 mg PO DAILY loratadine (Claritin) 10 mg PO DAILY PRN multivitamin with folic acid 400 mcg (Daily-Shabbir (with folic acid)) 1 tab PO DAILY naphazo HCl-hpm-ps 80-Zn sulf 0.025-0.2-0.5 % (Clear Eyes Complete) 1 drp ophthalmic (eye) QID PRN omeprazole 40 mg PO BID quetiapine (Seroquel) 200 mg PO BEDTIME sildenafil 100 mg PO DAILY PRN venlafaxine ER (Effexor XR) 75 mg PO DAILY venlafaxine ER (Effexor XR) 150 mg PO DAILY ziprasidone HCl (Geodon) 60 mg PO DAILY Excerpt from NPU Discharge Summary from 04/03/24 Discharge Diagnosis (1) Major depressive disorder, recurrent severe without psychotic features: Status: Acute (2) Disruptive mood dysregulation disord er: Status: Acute (3) Autistic disorder: Status: Acute (4) Intermittent explosive disorder in a dult: Status: Acute (5) Suicidal ideation: Status: Resolved Reason for Visit CC: mhe. History of Present Illness Josh Colindres is a 29 year old male who presented to the emergency department with the following report: Chief Complaint: Psychiatric Symptoms Stated Complaint: mhe Time Seen by Provider: 04/01/24 11:45 History of Present Illness: 29-year-old man with history of depressi on, autistic disorder and issues with psychosis who presents emergency room after having an explosive episode at the retirement he lives in. Apparently he had busted out windows and had poured some sort of oil on himself and threatened to burn himself in the house down. When the police arrived he asked them to shoot him in the head. When I talk to him he is very quiet and appears nonviolent at this time. He says he has anger issues and that is about all he will tell me. He goes back to reading his book. He was admitted to the neuropsychiatric unit for definitive treatment of those issues. He is known to the psychiatric community at [facility] through inpatient and outpatient services and he presents as he often does with a significant agitated episode and as has happened in the past he presents reporting that there is no need to do anything he was just angry and he is fine now. He had a hospitalization back in January 2024 and an excerpt of that discharge summary is included below for context. He has been seeing his outpat ient provider and there has been no identified need for any changes. He presents today reporting that he was being out of control at his [facility] and he was angry about something that he can even remember what it was. He reports that they called the police and while the police were there he did acknowledge that he was upset and he did tell them to shoot him in the head and just kill him. He reports now that that was just out of anger and that he is absolutely fine he is not angry anymore and he denies needing to be here he denies any need for any medication changes. He reports that his medications have been working quite well. We agreed we would talk to his [facility], his guardian and determine whether this represents some significant decompensation or a reflection of his intermittent explosive disorder and if so we will make this a quick visit. Per his 02/07/2024 [facility] inpatient psychiatric discharge summary: Discharge Diagnosis (1) Major depressive disorder, recurrent severe without psychotic features: Status: Acute (2) Disruptive mood dysregulation disord er: Status: Acute (3) Autistic disorder: Status: Acu te Reason for Visit Reason for Visit: si/vomiting Brief History: History of Present Illness Josh Colindres is a 28 year old male who presented to the emergency department with the following report: Chief Complaint: Psychiatric Symptoms Stated Complaint: si/vomiting Time Seen by Provider: 02/04/24 17:34 Source: patient and EMS Mode of arrival: EMS Limitations: no limitations History of Present Illness: 28-year-old male who states he has been having suicidal thoughts he states that he has a plan of slitting his wrist with glass. Patient denies any worse improved factors. He states he is also been having abdominal pains are going on for days denies any fevers. Associated symptoms: Reports depression and suicidal ideation. He was admitted to the neuropsychiatric unit for definitive treatment of those issues. He is well-known to [facility] through inpatient and outpatient services. His most recent outpatient visit with this provider was in December of this year. His most recent inpatient visit was in March 2022 and an excerpt of that discharge summary is included below for context. His presentation however is fairly consistent with past hospitalizations with intrus casey thoughts about something leading to him having great distress and suicidal thinking. An excerpt of his last inpatient discharge summary is included for context and the lack of substantive changes. He presents today reporting that this is all a misunderstanding. He reports that in general he has been doing well since his last hospitalization that is noted below. He says that his medications have been working and that this was a poor choice on his part because he got angry. He reports that after he got angry he started making comments and threats. He reports the settings going to cut himself but had no intention to cut himself. He reports he reported some suicidal thoughts but denies that they actually existed and that he was just angry and not wanting to necessarily be there. He reports that the medications the outpatient team have him on are effective and he has no concerns. We discussed a plan to reach out to his facility and talk to them about what staffing concerns they might have and discuss a plan to monitor him and consider discharge within the next 48 hours. Per his 03/25/2022 [facility] inpatient psychiatric discharge summary: Discharge Diagnosis (1) Major depressive disorder, recurrent severe without psychotic features: Status: Acute (2) Disruptive mood dysregulation disord er: Status: Acute (3) Autistic disorder: Status: Acu te Reason for Visit Reason for Visit: Suicidal ideation Brief History: History of Present Illness Josh Colindres is a 27 year old single white male with a history of multiple inpatient psychiatric hospitalizations most recently in June 2021 who presented with his 24-hour care worker to the emergency department after he had become aggressive towards his residential team leader and had threatened to shoot his residential team leader and had threatened to kill himself. He was admitted to the neuropsychiatric unit for further evaluation and treatment. The patient has had multiple visits to the emergency department over the past year after having episodes of agitation and anger where he would make threats towards various staff members. He reports that he has been diagnosed with Asperger's disorder and has been residing in an independent living facility under [facility] since 2014. He reports that much of his frustration has to do with depression that has been present for several months. He reports a lack of interest in completing any activities. He reports low motivation and low energy. He reports having sleep continuity disruption. He did report that his depression had been improving and reports that he had been more hopeful. He denies any suicidal ideation but states that when he becomes upset he will make threats to hurt himself or others. The patient reports that he had previously struggled with having a sexual attraction to people's feet and had previously grabbed women's feet and had attempted to ask strangers about their shoes. He reports that he had been prescribed intramuscular Depo-Provera for about 5 years ending in 2019. He reports that his sexual fetish and recurring obsessive thoughts about women's feet had declined substantially but he reports that he has been f rustrated that he has had a permanent change in his libido as he had been unable to masturbate or become erect. He describes having his primary problems with engaging with others including engaging with potential sutures has been impaired despite normal levels of testosterone. He reports that he does not feel like he can be normal and reports that he has been struggling with managing his anger. Inpatient psychiatric history: He reports multiple inpatient hospitalizations with most recent hospitalization here at [facility] in June 2021. Outpatient psychiatric history: He is followed at [facility] outpatient behavioral health clinic with most recent visit approximately 1 month ago. Medical history: Gastritis Surgeries: Foot surgery Allergies: Haldol/Ritalin Medications: Remeron 15 mg at night, omeprazole 40 mg twice a day, Seroquel 200 mg at night, Geodon 40 mg at night, Wellbutrin 450 mg daily Drug and alcohol history: None Legal history: None Social history: The patient was born in [facility] and lived with his biological mother until the age of 6. He has no contact with his biological father. He reports having been placed in foster care and was eventually adopted by his foster mom's mother. He reports that he had problems with learning and dropped out of school in the 11th grade and has not obtained his GED. He had reported having problems with anger and agitation with the patient reporting no history of sexual physical or emotional abuse. He had acknowledged having been evaluated for having behavioral problems as a child. He has no known family psychiatric history noted. His legal guardian is currently a local workers compensation defense attorney in [facility]. He has been living under the care of [facility] since 2014 where he does not work and does not attend a day program. Hospital Course Hospital Course He quickly acclimated to the individual, group and milieu therapies provided. He presented as he often has recently with reports of lethality and irritability or agitation at his facility. Unlike historically however, he has been much better at identifying that the situations almost always represent some intermittent explosive moment and not a true decompensation. He was able to report that he is having some frustrating interactions with the staff that led to the comments but he denied having any issue. Given the greater intensity of behaviors this time we did monitor him briefly to make sure that he was in fact fine. We did not make any medication changes. The social work team work with him to make sure he had outpatient appointments in place. He had significant improvement during the stay compared to the initial reports. And he was able to contract for safety outside the hospital prior to discharge. During the hospitalization, patient had routine laboratory studies which were within normal limits except for few outliers. Additionally there was a general medical jesus luation which was also within normal limits and revealed no new acute processes. At the time of discharge, he denied psychosis or lethality. Mood and anxiety were well managed. Patient endorsed a plan to avoid all drugs of abuse and follow-up with the aftercare recommendations of the treatment team. Patient was evaluated and deemed to be absent credible lethality, and had achieved the maximum benefit from an inpatient hospitalization, so was discharged Hospital Course Hospital Course Patient restarted on medications as prescribed on outpatient basis. He quickly adapted well to the milieu. During the hospitalization, the patient had routine laboratory studies which were within normal limits except for a few outliers.? Additionally, there was a general medical evaluation which was also within normal limits and revealed no new acute processes.? At the time of discharge, lethality was denied and psychosis was absent at discharge. ? Mood and anxiety were well managed.? The patient endorsed a plan to avoid all drugs of abuse and follow up with the aftercare recommendations of the treatment team.? The patient was evaluated and deemed to be absent credible lethality and had achieved the maximum benefit from an inpatient hospitalization, and so was discharged. ? Involuntary Hold Information Hold Status: Legal Status: Active Guardianship Date/Time Hold Expires: Guardian 96 Hour Hold: 96 Hour Involuntary Admission: No Mental Status Exam MSE Comments: This is an extremely tall, overweight, white male, in hospital scrubs with adequate grooming, and fleeting eye contact No abnormal involuntary motor movements, tics tremors or stereotypies. He was cooperative with exam in no acute distress. Speech had normal rate and volume, and monotone speech. Mood described as good. His affect was euthymic. Thought process was linear and organized. Thought content: patient denied suicidal or homicidal ideation, there were no delusions reported or noted, he denied any auditory or visual hallucinations. He did not appear to be responding to internal stimuli. Attention and concentration were intact, and memory appeared unreliable, but none were formally tested. He is alert and oriented to person, place, time and situation. Insight is poor and judgment is fair. Impulse control is guarded. Discharge Data Studies Completed and Pending: Laboratory Results WBC 5.93 10^3/uL (3.2 9-11.43) 08/09/24 13:13 RBC 5.23 10^6/uL (3.8 5-5.65) 08/09/24 13:13 Hgb 15.60 g/dL (11.27 -16.99) 08/09/24 13:13 Hct 46.1 % (37-53) 08/09/24 13:13 MCV 88.1 fl (82-101) 08/09/24 13:13 MCH 29.8 pg (27-33) 08/09/24 13:13 MCHC 33.8 g/dL (30-55) 08/09/24 13:13 RDW 12.1 % (12.1-15.1 ) 08/09/24 13:13 Plt Count 169 10^3/cmm (157 -399) 08/09/24 13:13 MPV 10.2 fL (7.4-10.4 ) 08/09/24 13:13 Neut % (Auto) 52.9 % 08/09/24 13:13 Lymph % (Auto) 33.7 % 08/09/24 13:13 [place] % (Auto) 10.3 % 08/09/24 13:13 Eos % (Auto) 2.0 % 08/09/24 13:13 Baso % (Auto) 0.8 % 08/09/24 13:13 Neut # (Auto) 3.13 10^3/uL (1.8 -7.7) 08/09/24 13:13 Lymph # (Auto) 2.0 10^3/uL (0.8- 4.8) 08/09/24 13:13 [place] # (Auto) 0.6 10^3/uL (0.2- 0.9) 08/09/24 13:13 Eos # (Auto) 0.1 10^3/uL (0.0- 0.8) 08/09/24 13:13 Baso # (Auto) 0.1 10^3/uL (0.0- 0.1) 08/09/24 13:13 Nucleated RBC % (a uto) 0 % 08/09/24 13:13 Nucleated RBCs # 0.0 /100WBC 08/09/24 13:13 Sodium 143 mmol/L (136-1 45) 08/09/24 13:13 Potassium 4.3 mmol/L (3.5-5 .1) 08/09/24 13:13 Chloride 107 mmol/L (98-10 7) 08/09/24 13:13 Carbon Dioxide 23 mmol/L (22-29) 08/09/24 13:13 Anion Gap 17.3 (5-19) 08/09/24 13:13 BUN 16 mg/dL (6-20) 08/09/24 13:13 Creatinine 1.1 mg/dL (0.7-1. 2) 08/09/24 13:13 GFR Calculation 78.6 mL/min (90-1 30) L 08/09/24 13:13 Glucose 85 mg/dL (65-115) 08/09/24 13:13 Calculated Osmolal ity 296 mOsm/kg (285- 295) H 08/09/24 13:13 Calcium 9.4 mg/dL (8.5-10 .5) 08/09/24 13:13 Total Bilirubin 0.5 mg/dL (0.15-1 .2) 08/09/24 13:13 AST 18 U/L (0-40) 08/09/24 13:13 ALT 43 U/L (0-41) H 08/09/24 13:13 Alkaline Phosphata se 101 U/L (40-130) 08/09/24 13:13 Total Protein 7.2 g/dL (6.6-8.7 ) 08/09/24 13:13 Albumin 4.1 g/dL (3.5-5.2 ) 08/09/24 13:13 Globulin 3.1 g/dL (1.3-4.6 ) 08/09/24 13:13 TSH 1.25 uIU/mL (0.27 -4.20) 08/09/24 13:13 Urine Color Dark yellow (Yel low) A 08/09/24 13:50 Urine Appearance Clear (CLEAR) 08/09/24 13:50 Urine pH 6.0 (5-7) 08/09/24 13:50 Ur Specific Gravit y 1.034 (1.005-1.0 30) H 08/09/24 13:50 Urine Protein 1+ (Negative) A 08/09/24 13:50 Urine Glucose (UA) Negative (Normal ) 08/09/24 13:50 Urine Ketones Trace (Negative) 08/09/24 13:50 Urine Blood Negative (Negati ve) 08/09/24 13:50 Urine Nitrate Negative (Negati ve) 08/09/24 13:50 Urine Bilirubin Negative (Negati ve) 08/09/24 13:50 Urine Urobilinogen 1.0 mg/dL (Negati ve) 08/09/24 13:50 Ur Leukocyte Michelle ase Negative (Negati ve) 08/09/24 13:50 Urine RBC 0-2 /hpf (0-2) 08/09/24 13:50 Urine WBC 0-5 /hpf (0-5) 08/09/24 13:50 Ur Squamous Epith Cells 0-5 /hpf (0-5) 08/09/24 13:50 Amorphous Sediment Not Reportable 08/09/24 13:50 Urine Bacteria None seen /hpf (N ONE) 08/09/24 13:50 Hyaline Casts 0.40 /lpf 08/09/24 13:50 Salicylates < 0.3 mg/dL (3-10 ) L 08/09/24 13:13 Urine Opiates Scre en Negative ng/mL (N egative) 08/09/24 13:50 Acetaminophen < 5.0 ug/mL (10-3 0) L 08/09/24 13:13 Ur Barbiturates Sc reen Negative ng/mL (N egative) 08/09/24 13:50 Ur Phencyclidine S crn Negative ng/mL (N egative) 08/09/24 13:50 Ur Amphetamines Sc reen Negative ng/mL (N egative) 08/09/24 13:50 U Benzodiazepines Scrn Negative ng/mL (N egative) 08/09/24 13:50 Urine Cocaine Scre en Negative ng/mL (N egative) 08/09/24 13:50 U Marijuana (THC) Screen Negative ng/mL (N egative) 08/09/24 13:50 Ethyl Alcohol < 10 mg/dL (0-10) 08/09/24 13:13 Vitals: Last Vital Signs Temp 98.1 F 08/10/24 12:18 Pulse 94 08/10/24 12:18 Resp 18 08/10/24 12:18 BP 117/72 08/10/24 12:18 Pulse Ox 96 08/10/24 12:18 O2 Del Method Room Air 08/09/24 16:17 Discharge Plan Discharge Patient Disposition: Home Condition: Stable Prescriptions: Continued bupropion HCl [Wellbutrin XL] 300 mg tablet extended release 24 hr 300 mg PO DAILY Qty: 30 2RF Rx Instructions: along with 150mg to= 450mg total bupropion HCl 150 mg tablet extended release 24 hr 150 mg PO DAILY Qty: 30 2RF Rx Instructions: along with 3000mg to= 450mg total ziprasidone HCl [Geodon] 60 mg capsule 60 mg PO DAILY Qty: 30 1RF venlafaxine [Effexor XR] 150 mg capsule,extended release 24hr 150 mg PO DAILY Qty: 14 0RF Rx Instructions: along with 75mg [id number] daily venlafaxine [Effexor XR] 75 mg capsule,extended release 24hr 75 mg PO DAILY Qty: 14 0RF Rx Instructions: along with 150mg [id number] daily Clear Eyes Complete 0.025-0.2-0.5 % Drops 1 drp OPHTHALMIC (EYE) QID PRN (Reason: Allergy Symptoms) loratadine [Claritin] 10 mg Tablet 10 mg PO DAILY PRN (Reason: Allergy Symptoms) multivitamin with folic acid [Daily-Shabbir (with folic acid)] 400 mcg tablet 1 tab PO DAILY omeprazole 40 mg capsule,delayed release(DR/EC) 40 mg PO BID sildenafil 100 mg tablet 100 mg PO DAILY PRN (Reason: erectile disorder) calcium carbonate [Antacid Calcium Supplement] 500 mg calcium (1,250 mg) Tablet,Chewable 500 mg PO Q4H MDD 6 tabs daily PRN (Reason: Indigestion) ondansetron [Zofran ODT] 4 mg Tablet,Disintegrating 4 mg PO Q6H PRN (Reason: Nausea And Vomiting) metoclopramide HCl [Reglan] 10 mg Tablet 10 mg PO QID PRN (Reason: Nausea) Pepto-Bismol 525 mg/15 mL Suspension 525 mg PO Q30M MDD 240ml daily PRN (Reason: Indigestion) Rx Instructions: do not exceed 8 doses in a 24 hour period Hemorrhoidal(PE-min oil-gina) 0.25-14-74.9 % ointment 1 applic OR QID PRN (Reason: Rectal Discomfort) quetiapine [Seroquel] 200 mg tablet 200 mg PO BEDTIME Discharge Orders: Discharge Order (Routine); Ordered 08/10/24 Ordered By: Raymundo Cervantes Referrals: Lenora Lafleur PMHNP [Staff Physician, Psychiatry] - 08/25/24 9:45 am Kenneth Bravo DO [Primary Care Provider, Internal Medicine] Discharge Diet: Usual diet Discharge Activity: Resume usual activity Patient Instructions: Opioid Safety, Patient Portal & Saray Instructions Discharge Attestations NPU Time Spent in Discharge Care*: less than 30 min Specific Discharge Activities: Specific discharge activities: educating patient, discussing with major case detective/social workers/dc planners and documenting/other paperwork Status at Discharge: Cognitive status at discharge: cognitively intact , Behavioral status at discharge: cooperative , Coding Level of Care Code Acute Code for [facility] Fwd Diagnoses Disruptive mood dysregulation disorder F34.81 Major depressive disorder, recurrent severe without psychotic features F33.2 Autistic disorder F84.0 Intermittent explosive disorder in adult F63.81 Suicidal ideation R45.851
[2024-08-10 13:25] VITALS: BP 132/78; PULSE 102; RESP 16; TEMP 36.6; O2SAT 99
== END 2024-08-10 15:49 | disposition home or self-care (01) | DRG 885 ==
LOC: ER 14:10 → NP 15:29
PROVIDERS: Admitting Provider Psychiatry & Neurology Psychiatry; Emergency Provider Emergency Medicine; PCP Internal Medicine; Visit Provider Psychiatry & Neurology Psychiatry
DX: F33.2 Major depressive disorder, recurrent severe without psychotic features (principal); R45.851 Suicidal ideations; F34.81 Disruptive mood dysregulation disorder; F84.0 Autistic disorder; F63.81 Intermittent explosive disorder; F41.9 Anxiety disorder, unspecified; E66.3 Overweight; Z68.34 Body mass index [BMI] 34.0-34.9, adult
CPT/HCPCS: 36415; 80053; 80306; 80307; 81001; 84443; 85025; 93005; 97165; 99285; J9999